=== PATIENT | female | born 1955 | race Caucasian/White ===

== ENCOUNTER 2016-07-28 03:26 | Inpatient (IN) | payer BC ==
[~2016-07-28] VITALS: Ht 152.4 cm; Wt 65.0 kg
[~2016-07-28 03:26] MED LIST: ATEN-51 PO; BECL8.7A5 IH; CALC-143 PO; CYCL-319 PO; DULO60CA59 PO; GABA300C16 PO; GLIP5TAB13 PO; HYDR-2059 PO; INDO75CA PO; INSU100I15 SC; LEVO137T3 PO; OMEP40CA6 PO; PRED5 PO; RANI150C11 PO; TRAM100T27 PO
[2016-07-28] MEDS ORDERED: CYCLOBENZAPRINE 10 MG TAB PO PRN (08:30)
[2016-07-28] MEDS ORDERED: ONDANSETRON 4 MG INJ IV PRN (08:30)
[2016-07-28] MEDS ORDERED: DEXTROSE 50% 50 ML SYRINGE IV PRN ×2 (08:30)
[2016-07-28] MEDS ORDERED: GLUCOSE GEL 15 GRAM TUBE PO PRN ×2 (08:30)
[2016-07-28] MEDS ORDERED: GLUCAGON 1 MG INJ IM PRN (08:30)
[2016-07-28] MEDS ORDERED: GLUCOSE GEL 15 GRAM TUBE BUCCAL PRN (08:30)
[2016-07-28 08:31] VITALS: BP 131/63; RESP 20
[2016-07-28] MEDS: DOCUSATE SODIUM 100 MG CAP PO SCH ×2 (09:23→21:30)
[2016-07-28] MEDS: GABAPENTIN 300 MG CAP PO SCH ×3 (09:23→21:30)
[2016-07-28] MEDS: DULOXETINE 30 MG CAP DR PO SCH (09:24)
[2016-07-28] MEDS: FAMOTIDINE 20 MG INJ IV SCH ×2 (09:26→21:30)
[2016-07-28] MEDS: ENOXAPARIN 40 MG/0.4 ML SYG SC SCH (09:26)
[2016-07-28] MEDS: ATENOLOL 25 MG TAB PO SCH (09:27)
[2016-07-28] MEDS: CIPROFLOXACIN 400MG/D5W 200 ML IVPB SCH ×2 (09:28→21:31)
[2016-07-28] MEDS: morphine 2 MG INJ IV PRN (09:31)
[2016-07-28] MEDS: SOD CHLORIDE 0.9% 1,000 ML IV SCH ×2 (09:46→21:00)
[2016-07-28 09:58] VITALS: Ht 152.4 cm; Wt 65.0 kg
[2016-07-28 10:30] LABS: BASOPHIL # 0.1 10^3/ul (0.0-0.1); BASOPHILS % 0.8 % (0.0-2.0); EOSINOPHILS # 0.1 10^3/ul (0.0-0.5); HEMATOCRIT 30.5 % (37.0-47.0); HEMOGLOBIN 9.8 g/dl (12.0-16.0); LYMPHOCYTES # 2.2 10^3/ul (0.8-2.9); LYMPHOCYTES % 30.5 % (15.0-51.0); MEAN CORPUSCULAR HEMOGLOBIN 26.7 pg (29.0-33.0); MEAN CORPUSCULAR VOLUME 83.4 fl (82.0-101.0); MEAN PLATELET VOLUME 6.6 fl (7.4-10.4); MONOCYTE # 0.7 10^3/ul (0.3-0.9); MONOCYTES % 10.3 % (0.0-11.0); NEUTROPHIL # 4.1 10^3/ul (1.6-7.5); NEUTROPHILS % 57.4 % (39.0-77.0); PLATELET COUNT 425 10^3/UL (140-440); RED BLOOD COUNT 3.66 10^6/ul (4.20-5.40); UNCORRECTED WBC 7.1 10^3/ul (4.8-10.8); WHITE BLOOD COUNT 7.1 10^3/ul (4.8-10.8)
[2016-07-28 10:33] LABS: CONDITION 1; LH ANALYZER COMMENTS 1
[2016-07-28 10:42] LABS: POTASSIUM 3.5 mmol/L (3.5-5.1)
[2016-07-28 10:44] LABS: CREATININE 0.43 mg/dl (0.44-1.00)
[2016-07-28 10:45] LABS: CALCIUM 9.4 mg/dl (8.4-10.2)
[2016-07-28 10:48] LABS: ALBUMIN 3.3 g/dl (3.3-4.9)
[2016-07-28 10:49] LABS: TOTAL PROTEIN 6.4 g/dl (6.1-8.1)
[2016-07-28 10:51] LABS: BILIRUBIN,INDIRECT 0.2 mg/dl (0-1.1); BILIRUBIN,TOTAL 0.2 mg/dl (0.2-1.3); MAGNESIUM 1.6 mg/dl (1.7-2.5)
[2016-07-28] MEDS: HYDROCODONE/APAP (10/325) TAB PO PRN ×3 (11:22→21:30)
[2016-07-28] MEDS: LEVOTHYROXINE 150 MCG TAB PO SCH (11:27)
[2016-07-28] MEDS: metroNIDAZOLE 500 MG/NS (PMX) 250 MG in EVAC CONTAINER 1 BOTTLE IVPB SCH ×3 (11:28→23:43)
[2016-07-28] MEDS: INSULIN ASPART [NOVOLOG] 3 ML PEN SC SCH ×3 (12:00→21:00)
[2016-07-28 12:09] LABS: THYROID STIMULATING HORMONE 12.8 MIU/L (0.465-4.680)
[2016-07-28 13:24] LABS: ADD UMIC YES; URINE BILIRUBIN (Dip) NEGATIVE (NEGATIVE); URINE BLOOD (Dip) 2+ (NEGATIVE); URINE COLOR LT. YELLOW (YELLOW); URINE GLUCOSE (Dip) NEGATIVE (NEGATIVE); URINE KETONES (Dip) NEGATIVE (NEGATIVE); URINE LEUKOCYTE ESTERASE (Dip) 2+ (NEGATIVE); URINE NITRITE (Dip) NEGATIVE (NEGATIVE); URINE TOTAL PROTEIN (Dip) NEGATIVE (NEGATIVE); URINE UROBILINOGEN (Dip) 0.2 E.U./dL (0.1-1.0)
[2016-07-28 13:33] LABS: BACTERIA,URINE FEW; URINE RBCS 0-2 /HPF (0)
[2016-07-28] MEDS: CALCIUM/VITAMIN D (500/200) TAB PO SCH ×2 (13:48→21:30)
[2016-07-28] MEDS: MOMETASONE 0.24 GM INHALER INH SCH ×2 (13:49→21:30)
--- NOTE | 2016-07-28 15:57 | HP ---
DATE OF ADMISSION: 07/28/2016 CONSULTANTS: None. CHIEF COMPLAINT: Abdominal pain and diarrhea. HISTORY OF PRESENT ILLNESS: This is a 61-year-old female with a past medical history of diabetes me llitus, hypertension, depression, anxiety, open heart surgery several years ago, cardiac valve disea se and lumbosacral radiculopathy, who has been complaining of having abdominal pain x1 day, with low er GI bleed, and was seen and evaluated at [facility] with CAT scan done which s hows sigmoid diverticulitis, fluid collection adjacent to the colon, may represent a small abscess, status post cholecystectomy. The patient's WBC was found to be normal. Hemoglobin 10.4, hematocrit 32.6, WBC 6.3. She was treated with IV antibiotics in the course of the emergency room and was tra nsferred to [facility] secondary to insurance purposes. At this time the patient continues to complain of having lower abdominal discomfort. She denies any nausea or having any carter rrhea at this time. PAST MEDICAL AND SURGICAL HISTORY: As above, per HPI. MEDICATIONS: 1. [place]. 2. Atenolol. 3. Qvar. 4. Calciferol. 5. Cyclobenzaprine. 6. Fluoxetine. 7. Gabapentin. 8. Glipizide. 9. Betamethasone. 10. Lantus. 11. Levothyroxine. 12. Omeprazole. 13. Prednisone. 14. Ranitidine. 15. Tramadol. ALLERGIES: SULFA. SOCIAL HISTORY: She lives at home with her family. Negative x3 for smoking, alcohol, or illicit dr ugbrittanie. REVIEW OF SYSTEMS: As above, per HPI. Negative for fevers, chills, weight gain, weight loss, anore lincoln. No chest pains, palpitations, edema or orthopnea. No changes in visual acuity, diplopia or ph otophobia. Positive for abdominal pain and nausea. No vomiting. Positive for a change in the colo r of stool. No dysuria, hematuria, urgency or incontinence. No heat or cold intolerance. PHYSICAL EXAMINATION: VITAL SIGNS: Temperature 98.6, pulse 65, respirations 20, blood pressure 131/63, oxygen saturation 98% on room air. GENERAL APPEARANCE: The patient is lying in bed comfortably, without any acute distress. She is aw santana, alert, oriented; is able to answer my questions properly. EYES AND ENT: Conjunctivae and lids are normal. Pupils are normal. Hearing is grossly normal. Li ps, teeth and gums are normal. Oral mucosa is dry. NECK: Supple. Trachea is midline. No lymphadenopathy. LUNGS: Respiratory effort is normal. Clear to auscultation bilaterally. CARDIOVASCULAR: Normal S1, S2. Regular rhythm and rate. No murmur, no bruits, no edema. Peripher al pulses and radial pulses palpable. Cap refill is normal. CHEST: Normal expansion of thorax during inspiration. GASTROINTESTINAL: Abdomen is soft, nontender, nondistended. Bowel sounds are present. No guarding , no rebound. GENITOURINARY: Deferred. MUSCULOSKELETAL: Upper and lower extremities are within normal limits. Full range of motion. Stre ngth is 5/5 for both upper and lower extremities. NEUROLOGIC: Cranial nerves II through XII are grossly intact. PSYCHIATRIC: Normal judgment and insight. She is awake, alert, oriented. LABORATORY WORK AND IMAGING: CT abdomen and pelvis as above, per HPI. Sodium 137, potassium 3.9, c hloride 97, bicarbonate 25, BUN 15, creatinine 0.51, glucose 406, albumin 4.0. WBC is within normal limits at 6.3. Hemoglobin 10.4, hematocrit 32.6, platelets 439. ASSESSMENT AND PLAN: 1. Diverticulitis. The patient has been started on ciprofloxacin and Flagyl. Will obtain a gastro enterologist if this symptom does not improve. 2. Possible fluid collection just at the colon, may represent a small abscess. Will obtain a [facility] consultation and will follow his recommendations. Continue IV antibiotic. 3. Essential hypertension. Continue atenolol. 4. Major depression. Continue Cymbalta. 5. Hypothyroidism. Continue levothyroxine. 6. Diabetes mellitus. Will place the patient on insulin sliding scale and continue Lantus. 7. History of asthma. Continue Asmanex. 8. For deep venous thrombosis prophylaxis, on Lovenox. 9. For gastrointestinal prophylaxis, on Pepcid. Will continue to monitor the patient closely. Further recommendations, management and treatment as per clinical course. Total amount of time spent for evaluation of the patient for admission workup was 45 minutes. Dictated By: ABDULKADIR JONES/ELINA Conf#: [id number] [facility]#: [id number]
--- NOTE | 2016-07-28 20:40 | CONS ---
Date/Time of Note Date/Time of Note DATE: 07/28/16 TIME: 20:35 Assessment/Plan Assessment/Plan Chief Complaint/Hosp Course 61-year-old female with acute sigmoid diverticulitis * CT scan was personally reviewed. 2 cm fluid collection adjacent to sigmoid colon is likely too small for IR drainage. This should resolve with long-term IV antibiotics. * Given patient's hemodynamic stability, lack of significant leukocytosis, fever , or peritoneal signs I would continue with nonoperative conservative management. * Continue nothing by mouth/IV fluid hydration/broad-spectrum intravenous antibiotics/pain control The above was discussed with the patient and the primary care team. Further recommendations will be made based on patient's clinical course Problems: Consultation Date/Type/Reason Admit Date/Time Jul 28, 2016 at 06:46 Date of Consultation: Jul 28, 2016 Type of Consultation: GENERAL SURGERY Reason for Consultation Acute diverticulitis Hx of Present Illness This is a 61-year-old female with a past medical history of diabetes mellitus, hypertension, depression, anxiety, open heart surgery several years ago, cardiac valve disease and lumbosacral radiculopathy, who was initially seen at [facility] with complaints of left lower quadrant abdominal pain x1 day. She denies any nausea/vomiting. She denies any fever/chills. She reports her last bowel movement was yesterday. At [place] a CT scan of the abdomen and pelvis was done which showed thickened sigmoid colon with inflammatory changes and a small 2 cm fluid collection adjacent to the sigmoid colon. She was transferred to [facility] for insurance purposes. She reports a similar episode of pain back in November 2015. Currently she is comfortable , but still complaining of some left lower quadrant abdominal pain. A 14 point review systems was conducted and was negative except for that which is mentioned in history of present illness Past Medical History As in history of present illness Social History Smoking Status: Never smoker Exam/Review of Systems Vital Signs Vitals Vital Signs Date Time Temp Pulse Resp B/P Pulse Ox O2 Delivery O2 Flow Rate FiO2 07/28/16 08:31 96.8 65 20 131/63 98 Exam GENERAL: Awake, alert, oriented 3. No acute distress. SKIN: No jaundice. HEENT: PERRLA, EOMI, No Scleral Icterus NECK: Supple without JVD CARDIOVASCULAR: S1S2, regular rate and rhythm. No murmurs appreciated. RESPIRATORY: Clear to auscultation bilaterally. ABDOMEN: Obese, Soft, bowel sounds present, nondistended, there is mild left lower quadrant tenderness to palpation without any rebound or guarding. EXTREMITIES: Free range of motion 4. No cyanosis, edema, or clubbing. NEUROLOGIC: Cranial nerves II-XII are intact. Sensation is intact grossly. Results Result Diagram: 07/28/16 0943 07/28/16 0943 Results 24 hrs Laboratory Tests Test 07/28/16 09:43 07/28/16 11:37 07/28/16 12:10 07/28/16 18:31 Alanine Aminotransferase (ALT/SGPT) 27 Albumin 3.3 Alkaline Phosphatase 116 Anion Gap 13 Aspartate Amino Transf (AST/SGOT) 14 L Basophils # 0.1 Basophils % 0.8 Blood Morphology Comment Blood Urea Nitrogen 11 Calcium Level 9.4 Carbon Dioxide Level 34 H Chloride Level 100 Creatinine 0.43 L Direct Bilirubin 0.00 Eosinophils # 0.1 Eosinophils % 1.0 Glucose Level 83 Hematocrit 30.5 L Hemoglobin 9.8 L Hemoglobin A1c 10.0 H Indirect Bilirubin 0.2 Lymphocytes # 2.2 Lymphocytes % 30.5 Magnesium Level 1.6 L Mean Corpuscular Hemoglobin 26.7 L Mean Corpuscular Hemoglobin Concent 32.0 Mean Corpuscular Volume 83.4 Mean Platelet Volume 6.6 L Monocytes # 0.7 Monocytes % 10.3 Neutrophils # 4.1 Neutrophils % 57.4 Nucleated Red Blood Cells # 0.0 Nucleated Red Blood Cells % 0.0 Platelet Count 425 Potassium Level 3.5 Red Blood Count 3.66 L Red Cell Distribution Width 19.0 H Sodium Level 143 Thyroid Stimulating Hormone (TSH) 12.800 H Total Bilirubin 0.2 Total Protein 6.4 White Blood Count 7.1 Bedside Glucose 94 89 Urine Bacteria FEW Urine Bilirubin NEGATIVE Urine Clarity CLEAR Urine Color LT. YELLOW Urine Epithelial Cells FEW Urine Glucose NEGATIVE Urine Hemoglobin 2+ H Urine Ketones NEGATIVE Urine Leukocyte Esterase 2+ H Urine Microscopic RBC 0-2 Urine Microscopic WBC 25-50 Urine Nitrite NEGATIVE Urine Specific [place] 1.010 Urine Total Protein NEGATIVE Urine Urobilinogen 0.2 E.U./dL Urine pH 7.0 Medications Medications Current Medications Ciprofloxacin/ Dextrose 200 ml @ 200 mls/hr Q12 IVPB Last administered on 07/28t 09:28; Admin Dose 200 MLS/HR; Start 07/28/16 at 09:00 Metronidazole/N/A (Flagyl 500 Mg (Pmx)/Evac Container) 50 ml @ 50 mls/hr Q8 IVPB Last administered on 07/28/16 13:49; Admin Dose 50 MLS/HR; Start at 09:30 Docusate Sodium (Colace) 100 mg BID PO Last administered on 07/28/16 09:23; Admin Dose 100 MG; Start 07/28/16 at 09:00 Ondansetron HCl (Zofran Inj) 4 mg Q6H PRN IV NAUSEA AND/OR VOMITING; Start at 08:30 Morphine Sulfate 2 mg 2 mg Q4H PRN IV pain Last administered on 07/28/16 09:31 ; Admin Dose 2 MG; Start 07/28/16 at 08:30 Sodium Chloride (NS) 1,000 ml @ 80 mls/hr [id number] IV Last administered on 07/28 09:46; Admin Dose 80 MLS/HR; Start 07/28/16 at 08:30 Famotidine (Pepcid Iv) 20 mg BID IV Last administered on 07/28/16 09:26; Admin Dose 20 MG; Start 07/28/16 at 09:00 Enoxaparin Sodium (Lovenox) 40 mg DAILY SC Last administered on 07/28/16 09:26 ; Admin Dose 40 MG; Start 07/28/16 at 09:00 Diagnostic Test (Pha) (Accucheck) 1 ea 02 XX ; Start 07/29/16 at 02:00 Atenolol (Tenormin) 25 mg DAILY PO Last administered on 07/28/16 09:27; Admin Dose 25 MG; Start 07/28/16 at 09:00 Cyclobenzaprine HCl (Flexeril) 10 mg DAILY PRN PO muscle spasms; Start at 08:30 Duloxetine HCl (Cymbalta) 60 mg DAILY PO Last administered on 07/28/16 09:24; Admin Dose 60 MG; Start 07/28/16 at 09:00 Gabapentin (Neurontin) 300 mg TID PO Last administered on 07/28/16 13:48; Admin Dose 300 MG; Start 07/28/16 at 09:00 Acetaminophen/ Hydrocodone Bitart ([place] (10/325)) 1 tab Q4H PRN PO PAIN Last administered on 07/28/16 19:01; Admin Dose 1 TAB; Start 07/28/16 at 08:30 Levothyroxine Sodium (Synthroid) 150 mcg DAILY@06 PO Last administered on 11:27; Admin Dose 150 MCG; Start 07/28/16 at 09:00 Mometasone Furoate (Asmanex) 1 puff BID INH Last administered on 07/28/16 13: 49; Admin Dose 1 PUFF; Start 07/28/16 at 10:00 Calcium/Vitamin D ([place]/ Vit-D (500/200)) 1 tab BID PO Last administered on 07/28/16 13:48; Admin Dose 1 TAB; Start 07/28/16 at 10:00 Miscellaneous Information 1 ea NOTE XX ; Start 07/28/16 at 08:30 Glucose (Glutose) 15 gm Q15M PRN PO DECREASED GLUCOSE; Start 07/28/16 at 08:30 Glucose (Glutose) 22.5 gm Q15M PRN PO DECREASED GLUCOSE; Start 07/28/16 at 08: 30 Dextrose (D50w Syringe) 25 ml Q15M PRN IV DECREASED GLUCOSE; Start 07/28/16 at 08:30 Dextrose (D50w Syringe) 50 ml Q15M PRN IV DECREASED GLUCOSE; Start 07/28/16 at 08:30 Glucagon (Glucagen) 1 mg Q15M PRN IM DECREASED GLUCOSE; Start 07/28/16 at 08:30 Glucose (Glutose) 15 gm Q15M PRN BUCCAL DECREASED GLUCOSE; Start 07/28/16 at 08 :30 HERI BOOKER MD Jul 28, 2016 20:40
[2016-07-29 01:34] VITALS: BP 101/52; RESP 19
[2016-07-29] MEDS: ACCUCHECK XX SCH ×2 (02:00→22:11)
[2016-07-29] MEDS: SOD CHLORIDE 0.9% 1,000 ML IV SCH ×2 (03:49→22:00)
[2016-07-29] MEDS: metroNIDAZOLE 500 MG/NS (PMX) 250 MG in EVAC CONTAINER 1 BOTTLE IVPB SCH ×3 (05:37→22:00)
[2016-07-29] MEDS: LEVOTHYROXINE 150 MCG TAB PO SCH (05:37)
[2016-07-29 05:53] LABS: BASOPHIL # 0.1 10^3/ul (0.0-0.1); BASOPHILS % 0.8 % (0.0-2.0); EOSINOPHILS # 0.1 10^3/ul (0.0-0.5); EOSINOPHILS % 1.2 % (0.0-7.0); HEMATOCRIT 29.5 % (37.0-47.0); HEMOGLOBIN 9.6 g/dl (12.0-16.0); LYMPHOCYTES # 2.6 10^3/ul (0.8-2.9); LYMPHOCYTES % 35.6 % (15.0-51.0); MEAN CORPUSCULAR HEMOGLOBIN 27.3 pg (29.0-33.0); MEAN CORPUSCULAR HGB CONC 32.6 g/dl (32.0-37.0); MEAN CORPUSCULAR VOLUME 83.8 fl (82.0-101.0); MEAN PLATELET VOLUME 6.8 fl (7.4-10.4); MONOCYTE # 0.8 10^3/ul (0.3-0.9); MONOCYTES % 10.7 % (0.0-11.0); NEUTROPHIL # 3.7 10^3/ul (1.6-7.5); NEUTROPHILS % 51.7 % (39.0-77.0); PLATELET COUNT 397 10^3/UL (140-440); RED BLOOD COUNT 3.52 10^6/ul (4.20-5.40); RED CELL DISTRIBUTION WIDTH 19.3 % (11.5-14.5); UNCORRECTED WBC 7.2 10^3/ul (4.8-10.8); WHITE BLOOD COUNT 7.2 10^3/ul (4.8-10.8)
[2016-07-29 06:07] LABS: POTASSIUM 3.4 mmol/L (3.5-5.1)
[2016-07-29 06:10] LABS: CALCIUM 8.6 mg/dl (8.4-10.2); CREATININE 0.5 mg/dl (0.44-1.00)
[2016-07-29 06:12] LABS: CONDITION 1; LH ANALYZER COMMENTS 1
[2016-07-29 08:00] VITALS: BP 120/55; RESP 21
[2016-07-29] MEDS: INSULIN ASPART [NOVOLOG] 3 ML PEN SC SCH ×4 (08:00→20:07)
[2016-07-29] MEDS: CIPROFLOXACIN 400MG/D5W 200 ML IVPB SCH ×2 (08:37→20:06)
[2016-07-29] MEDS: FAMOTIDINE 20 MG INJ IV SCH ×2 (08:37→20:06)
[2016-07-29] MEDS: MOMETASONE 0.24 GM INHALER INH SCH ×2 (09:00→20:06)
[2016-07-29] MEDS: DOCUSATE SODIUM 100 MG CAP PO SCH ×3 (09:19→20:14)
[2016-07-29] MEDS: DULOXETINE 30 MG CAP DR PO SCH (09:19)
[2016-07-29] MEDS: CALCIUM/VITAMIN D (500/200) TAB PO SCH ×2 (09:20→20:07)
[2016-07-29] MEDS: ATENOLOL 25 MG TAB PO SCH (09:20)
[2016-07-29] MEDS: ENOXAPARIN 40 MG/0.4 ML SYG SC SCH (09:22)
[2016-07-29] MEDS: GABAPENTIN 300 MG CAP PO SCH ×3 (09:24→20:07)
--- NOTE | 2016-07-29 09:49 | PN ---
Date/Time of Note Date/Time of Note DATE: 07/29/16 TIME: 09:47 Assessment/Plan Lines/Catheters IV C[facility]ter Type (from [facility]): Peripheral IV Assessment/Plan Assessment/Plan 61-year-old female with acute sigmoid diverticulitis * CT scan was personally reviewed. 2 cm fluid collection adjacent to sigmoid colon is likely too small for IR drainage. This should resolve with long-term IV antibiotics. * White blood cell count normal * Continue broad-spectrum intravenous antibiotics * Pain control * Advance to clear liquids * Out of bed/physical therapy The above was discussed with the patient and the primary care team. Further recommendations will be made based on patient's clinical course Subjective 24 Hr Interval Summary Still complaining of some left lower quadrant abdominal pain. No bowel movement. Afebrile. Exam/Review of Systems Vital Signs Vitals Vital Signs Date Time Temp Pulse Resp B/P Pulse Ox O2 Delivery O2 Flow Rate FiO2 07/29/16 08:00 98.3 57 21 120/55 93 Intake and Output 07/28/16 07/28/16 07/29/16 15:00 23:00 07:00 Intake Total 400 ml 1100 ml Output Total 850 ml Balance -450 ml 1100 ml Exam Free Text/Dictation GENERAL: Awake, alert, oriented 3. No acute distress. CARDIOVASCULAR: S1S2, regular rate and rhythm. No murmurs appreciated. RESPIRATORY: Clear to auscultation bilaterally. ABDOMEN: Obese, Soft, bowel sounds present, nondistended, there is mild left lower quadrant tenderness to palpation without any rebound or guarding. EXTREMITIES: Free range of motion 4. No cyanosis, edema, or clubbing. Results Result Diagram: 07/29/16 0420 07/29/16 0420 HERI BOOKER MD Jul 29, 2016 09:49
[2016-07-29] MEDS ORDERED: HYDROCODONE/APAP (5/325) TAB PO PRN (10:00)
[2016-07-29] MEDS: POTASSIUM CHLORIDE (SR) 20 MEQ TAB PO SCH ×2 (10:16→20:07)
[2016-07-29] MEDS: morphine 2 MG INJ IV PRN ×2 (10:16→20:08)
[2016-07-29] MEDS: HYDROCODONE/APAP (10/325) TAB PO PRN ×2 (13:55→22:09)
--- NOTE | 2016-07-29 16:07 | PN ---
Date/Time of Note Date/Time of Note DATE: 07/29/16 TIME: 16:02 Assessment/Plan VTE Prophylaxis VTE Prophylaxis Intervention: LMWH Lines/Catheters IV Catheter Type (from Nrs): Peripheral IV Assessment/Plan Assessment/Plan 1. Acute sigmoid diverticulitis with microperforation. continue iv antibiotics with cipro/flagyl, bowel resting, ivf 2. Urinary tract infection, on cipro 3. Essential hypertension. controlled, continue atenolol. 4. Major depression. astable, continue Cymbalta. 5. Hypothyroidism. Continue levothyroxine. 6. Diabetes mellitus. on insulin sliding scale and continue Lantus. 7. History of asthma. Continue Asmanex. 8. For deep venous thrombosis prophylaxis, on Lovenox. 9. For gastrointestinal prophylaxis, on Pepcid. Exam/Review of Systems Vital Signs Vitals Vital Signs Date Time Temp Pulse Resp B/P Pulse Ox O2 Delivery O2 Flow Rate FiO2 07/29/16 08:00 98.3 57 21 120/55 93 Intake and Output 07/28/16 07/28/16 07/29/16 15:00 23:00 07:00 Intake Total 400 ml 1100 ml Output Total 850 ml Balance -450 ml 1100 ml Results Result Diagram: 07/29/16 0420 07/29/16 0420 Results 24 hrs Laboratory Tests Test 07/28/16 18:31 07/28/16 21:24 07/29/16 04:20 07/29/16 11:49 Bedside Glucose 89 89 85 Anion Gap 12 Basophils # 0.1 Basophils % 0.8 Blood Morphology Comment Blood Urea Nitrogen 12 Calcium Level 8.6 Carbon Dioxide Level 31 Chloride Level 102 Creatinine 0.50 Eosinophils # 0.1 Eosinophils % 1.2 Glucose Level 70 Hematocrit 29.5 L Hemoglobin 9.6 L Lymphocytes # 2.6 Lymphocytes % 35.6 Mean Corpuscular Hemoglobin 27.3 L Mean Corpuscular Hemoglobin Concent 32.6 Mean Corpuscular Volume 83.8 Mean Platelet Volume 6.8 L Monocytes # 0.8 Monocytes % 10.7 Neutrophils # 3.7 Neutrophils % 51.7 Nucleated Red Blood Cells # 0.0 Nucleated Red Blood Cells % 0.0 Platelet Count 397 Potassium Level 3.4 L Red Blood Count 3.52 L Red Cell Distribution Width 19.3 H Sodium Level 142 White Blood Count 7.2 Medications Medications Current Medications Ciprofloxacin/ Dextrose 200 ml @ 200 mls/hr Q12 IVPB Last administered on 07/29 08:37; Admin Dose 200 MLS/HR; Start 07/28/16 at 09:00 Metronidazole/N/A (Flagyl 500 Mg (Pmx)/Evac Container) 50 ml @ 50 mls/hr Q8 IVPB Last administered on 07/29/16 15:44; Admin Dose 50 MLS/HR; Start at 09:30 Ondansetron HCl (Zofran Inj) 4 mg Q6H PRN IV NAUSEA AND/OR VOMITING; Start at 08:30 Morphine Sulfate 2 mg 2 mg Q4H PRN IV pain Last administered on 07/29/16 10:16 ; Admin Dose 2 MG; Start 07/28/16 at 08:30 Sodium Chloride (NS) 1,000 ml @ 80 mls/hr [id number] IV Last administered on 07/29 03:49; Admin Dose 80 MLS/HR; Start 07/28/16 at 08:30 Famotidine (Pepcid Iv) 20 mg BID IV Last administered on 07/29/16 08:37; Admin Dose 20 MG; Start 07/28/16 at 09:00 Enoxaparin Sodium (Lovenox) 40 mg DAILY SC Last administered on 07/29/16 09:22 ; Admin Dose 40 MG; Start 07/28/16 at 09:00 Diagnostic Test (Pha) (Accucheck) 1 ea 02 XX ; Start 07/29/16 at 02:00 Atenolol (Tenormin) 25 mg DAILY PO Last administered on 07/29/16 09:20; Admin Dose 25 MG; Start 07/28/16 at 09:00 Cyclobenzaprine HCl (Flexeril) 10 mg DAILY PRN PO muscle spasms; Start at 08:30 Duloxetine HCl (Cymbalta) 60 mg DAILY PO Last administered on 07/29/16 09:19; Admin Dose 60 MG; Start 07/28/16 at 09:00 Gabapentin (Neurontin) 300 mg TID PO Last administered on 07/29/16 13:48; Admin Dose 300 MG; Start 07/28/16 at 09:00 Acetaminophen/ Hydrocodone Bitart ([place] (10/325)) 1 tab Q4H PRN PO PAIN Last administered on 07/29/16 13:55; Admin Dose 1 TAB; Start 07/28/16 at 08:30 Levothyroxine Sodium (Synthroid) 150 mcg DAILY@06 PO Last administered on 05:37; Admin Dose 150 MCG; Start 07/28/16 at 09:00 Mometasone Furoate (Asmanex) 1 puff BID INH Last administered on 07/28/16 21: 30; Admin Dose 1 PUFF; Start 07/28/16 at 10:00 Calcium/Vitamin D ([place]/ Vit-D (500/200)) 1 tab BID PO Last administered on 07/29/16 09:20; Admin Dose 1 TAB; Start 07/28/16 at 10:00 Miscellaneous Information 1 ea NOTE XX ; Start 07/28/16 at 08:30 Glucose (Glutose) 15 gm Q15M PRN PO DECREASED GLUCOSE; Start 07/28/16 at 08:30 Glucose (Glutose) 22.5 gm Q15M PRN PO DECREASED GLUCOSE; Start 07/28/16 at 08: 30 Dextrose (D50w Syringe) 25 ml Q15M PRN IV DECREASED GLUCOSE; Start 07/28/16 at 08:30 Dextrose (D50w Syringe) 50 ml Q15M PRN IV DECREASED GLUCOSE; Start 07/28/16 at 08:30 Glucagon (Glucagen) 1 mg Q15M PRN IM DECREASED GLUCOSE; Start 07/28/16 at 08:30 Glucose (Glutose) 15 gm Q15M PRN BUCCAL DECREASED GLUCOSE; Start 07/28/16 at 08 :30 Docusate Sodium (Colace) 100 mg TID PO Last administered on 07/29/16 13:48; Admin Dose 100 MG; Start 07/29/16 at 13:00 Acetaminophen/ Hydrocodone Bitart ([place] (5/325)) 1 tab Q4H PRN PO MILD PAIN LEVEL 1-3; Start 07/29/16 at 10:00 Acetaminophen/ Hydrocodone Bitart ([place] (5/325)) 2 tab Q4H PRN PO MODERATE PAIN LEVEL 4-6; Start 07/29/16 at 10:00 Potassium Chloride (Klor-Con 20) 20 meq BID PO Last administered on 07/29/16t 10:16; Admin Dose 20 MEQ; Start 07/29/16 at 10:00; Stop 07/29/16 at 21:01 FEDERICO LEAL MD Jul 29, 2016 16:07
[2016-07-29 20:01] VITALS: BP 115/58; RESP 20
[2016-07-30] MEDS: HYDROCODONE/APAP (5/325) TAB PO PRN (01:49)
[2016-07-30] MEDS: HYDROCODONE/APAP (10/325) TAB PO PRN ×4 (05:19→20:28)
[2016-07-30] MEDS: metroNIDAZOLE 500 MG/NS (PMX) 250 MG in EVAC CONTAINER 1 BOTTLE IVPB SCH ×3 (05:19→22:35)
[2016-07-30] MEDS: LEVOTHYROXINE 150 MCG TAB PO SCH (05:19)
[2016-07-30 06:52] LABS: POTASSIUM 3.5 mmol/L (3.5-5.1)
[2016-07-30 06:54] LABS: CREATININE 0.47 mg/dl (0.44-1.00)
[2016-07-30 06:55] LABS: CALCIUM 8.5 mg/dl (8.4-10.2)
[2016-07-30 07:10] LABS: BASOPHIL # 0.1 10^3/ul (0.0-0.1); BASOPHILS % 0.8 % (0.0-2.0); EOSINOPHILS # 0.1 10^3/ul (0.0-0.5); EOSINOPHILS % 1.6 % (0.0-7.0); HEMATOCRIT 28.3 % (37.0-47.0); HEMOGLOBIN 9.3 g/dl (12.0-16.0); LYMPHOCYTES # 2.2 10^3/ul (0.8-2.9); LYMPHOCYTES % 33.9 % (15.0-51.0); MEAN CORPUSCULAR HEMOGLOBIN 27.2 pg (29.0-33.0); MEAN CORPUSCULAR VOLUME 82.4 fl (82.0-101.0); MEAN PLATELET VOLUME 7.3 fl (7.4-10.4); MONOCYTE # 0.9 10^3/ul (0.3-0.9); MONOCYTES % 13.5 % (0.0-11.0); NEUTROPHIL # 3.3 10^3/ul (1.6-7.5); NEUTROPHILS % 50.2 % (39.0-77.0); PLATELET COUNT 359 10^3/UL (140-440); RED BLOOD COUNT 3.43 10^6/ul (4.20-5.40); RED CELL DISTRIBUTION WIDTH 19.2 % (11.5-14.5); UNCORRECTED WBC 6.6 10^3/ul (4.8-10.8); WHITE BLOOD COUNT 6.6 10^3/ul (4.8-10.8)
[2016-07-30 07:22] LABS: CONDITION 1; LH ANALYZER COMMENTS 1
[2016-07-30 08:00] VITALS: BP 128/60; RESP 20
[2016-07-30] MEDS: INSULIN ASPART [NOVOLOG] 3 ML PEN SC SCH ×4 (08:00→20:29)
[2016-07-30] MEDS: DULOXETINE 30 MG CAP DR PO SCH (08:35)
[2016-07-30] MEDS: DOCUSATE SODIUM 100 MG CAP PO SCH ×3 (08:35→20:27)
[2016-07-30] MEDS: FAMOTIDINE 20 MG INJ IV SCH (08:35)
[2016-07-30] MEDS: GABAPENTIN 300 MG CAP PO SCH ×3 (08:35→20:27)
[2016-07-30] MEDS: ATENOLOL 25 MG TAB PO SCH (08:36)
[2016-07-30] MEDS: CIPROFLOXACIN 400MG/D5W 200 ML IVPB SCH ×2 (08:37→20:26)
[2016-07-30] MEDS: MOMETASONE 0.24 GM INHALER INH SCH ×2 (08:37→20:26)
[2016-07-30] MEDS: ENOXAPARIN 40 MG/0.4 ML SYG SC SCH (08:37)
[2016-07-30] MEDS: CALCIUM/VITAMIN D (500/200) TAB PO SCH ×2 (09:24→20:27)
--- NOTE | 2016-07-30 09:33 | PN ---
Date/Time of Note Date/Time of Note DATE: 07/30/16 TIME: 09:29 Assessment/Plan VTE Prophylaxis VTE Prophylaxis Intervention: LMWH Lines/Catheters [facility] Peripheral IV Urinary Cath still in place: No Assessment/Plan Chief Complaint/Hosp Course Assessment/Plan 1. Acute sigmoid diverticulitis with microperforation. continue iv antibiotics with cipro/flagyl, now on clear liquid diet, I will DC IV fluids small fluid collection noted on CT abdomen not for drainage at present. 2. Urinary tract infection, on cipro 3. Essential hypertension. controlled, continue atenolol. 4. Major depression. astable, continue Cymbalta. 5. Hypothyroidism. Continue levothyroxine. 6. Diabetes mellitus. on insulin sliding scale and continue Lantus. 7. History of asthma. Continue Asmanex. 8. For deep venous thrombosis prophylaxis, on Lovenox. 9. For gastrointestinal prophylaxis, on Pepcid. Encourage out of bed encourage p.o. intake If pain continues to improve anticipate discharge next 1-2 days with long-term antibiotics per general surgery likely repeat CT abdomen pelvis in several weeks time. Problems: Subjective 24 Hr Interval Summary Free Text/Dictation Patient still complaining of left lower quadrant pain Tolerating clear liquid diet States she had a bowel movement in the last 24 hours continues intravenous antibiotics Exam/Review of Systems Vital Signs Vitals Vital Signs Date Time Temp Pulse Resp B/P Pulse Ox O2 Delivery O2 Flow Rate FiO2 07/30/16 08:00 98.3 56 20 128/60 94 Intake and Output 07/29/16 07/29/16 07/30/16 15:00 23:00 07:00 Intake Total 2630 ml 1330 ml Balance 2630 ml 1330 ml Exam GENERAL: Moderately obese lady awake alert oriented comfortable at rest no acute distress VITAL SIGNS: per chart NECK: Supple. No JVD or lymphadenopathy. CARDIAC EXAM: S1, S2. No added sounds or murmurs. CHEST: clear bilaterally, No added sounds, rales or wheezes ABDOMEN: Soft, mild tenderness left lower quadrant bowel sounds present EXTREMITIES: No cyanosis, clubbing or edema. NEUROLOGIC: Generalized weakness. No focal deficits. Results Result Diagram: 07/30/16 0522 07/30/16 0522 Results 24 hrs Laboratory Tests Test 07/29/16 11:49 07/29/16 17:01 07/29/16 20:04 07/30/16 05:22 Bedside Glucose 85 88 168 Anion Gap 11 Basophils # 0.1 Basophils % 0.8 Blood Morphology Comment Blood Urea Nitrogen 6 L Calcium Level 8.5 Carbon Dioxide Level 29 Chloride Level 108 Creatinine 0.47 Eosinophils # 0.1 Eosinophils % 1.6 Glucose Level 83 Hematocrit 28.3 L Hemoglobin 9.3 L Lymphocytes # 2.2 Lymphocytes % 33.9 Mean Corpuscular Hemoglobin 27.2 L Mean Corpuscular Hemoglobin Concent 33.0 Mean Corpuscular Volume 82.4 Mean Platelet Volume 7.3 L Monocytes # 0.9 Monocytes % 13.5 H Neutrophils # 3.3 Neutrophils % 50.2 Nucleated Red Blood Cells # 0.0 Nucleated Red Blood Cells % 0.0 Platelet Count 359 Potassium Level 3.5 Red Blood Count 3.43 L Red Cell Distribution Width 19.2 H Sodium Level 144 White Blood Count 6.6 Medications Medications Current Medications Ciprofloxacin/ Dextrose 200 ml @ 200 mls/hr Q12 IVPB Last administered on 07/30 08:37; Admin Dose 200 MLS/HR; Start 07/28/16 at 09:00 Metronidazole/N/A (Flagyl 500 Mg (Pmx)/Evac Container) 50 ml @ 50 mls/hr Q8 IVPB Last administered on 07/30/16 05:19; Admin Dose 50 MLS/HR; Start at 09:30 Ondansetron HCl (Zofran Inj) 4 mg Q6H PRN IV NAUSEA AND/OR VOMITING; Start at 08:30 Morphine Sulfate 2 mg 2 mg Q4H PRN IV pain Last administered on 07/29/16 20:08 ; Admin Dose 2 MG; Start 07/28/16 at 08:30 Sodium Chloride (NS) 1,000 ml @ 80 mls/hr [id number] IV Last administered on 07/29 22:00; Admin Dose 80 MLS/HR; Start 07/28/16 at 08:30 Famotidine (Pepcid Iv) 20 mg BID IV Last administered on 07/30/16 08:35; Admin Dose 20 MG; Start 07/28/16 at 09:00 Enoxaparin Sodium (Lovenox) 40 mg DAILY SC Last administered on 07/30/16 08:37 ; Admin Dose 40 MG; Start 07/28/16 at 09:00 Diagnostic Test (Pha) (Accucheck) 1 ea 02 XX ; Start 07/29/16 at 02:00 Atenolol (Tenormin) 25 mg DAILY PO Last administered on 07/30/16 08:36; Admin Dose 25 MG; Start 07/28/16 at 09:00 Cyclobenzaprine HCl (Flexeril) 10 mg DAILY PRN PO muscle spasms; Start at 08:30 Duloxetine HCl (Cymbalta) 60 mg DAILY PO Last administered on 07/30/16 08:35; Admin Dose 60 MG; Start 07/28/16 at 09:00 Gabapentin (Neurontin) 300 mg TID PO Last administered on 07/30/16 08:35; Admin Dose 300 MG; Start 07/28/16 at 09:00 Acetaminophen/ Hydrocodone Bitart ([place] (10/325)) 1 tab Q4H PRN PO PAIN Last administered on 07/30/16 09:24; Admin Dose 1 TAB; Start 07/28/16 at 08:30 Levothyroxine Sodium (Synthroid) 150 mcg DAILY@06 PO Last administered on 05:19; Admin Dose 150 MCG; Start 07/28/16 at 09:00 Mometasone Furoate (Asmanex) 1 puff BID INH Last administered on 07/30/16 08: 37; Admin Dose 1 PUFF; Start 07/28/16 at 10:00 Calcium/Vitamin D (Oyster Shell/ Vit-D (500/200)) 1 tab BID PO Last administered on 07/30/16 09:24; Admin Dose 1 TAB; Start 07/28/16 at 10:00 Miscellaneous Information 1 ea NOTE XX ; Start 07/28/16 at 08:30 Glucose (Glutose) 15 gm Q15M PRN PO DECREASED GLUCOSE; Start 07/28/16 at 08:30 Glucose (Glutose) 22.5 gm Q15M PRN PO DECREASED GLUCOSE; Start 07/28/16 at 08: 30 Dextrose (D50w Syringe) 25 ml Q15M PRN IV DECREASED GLUCOSE; Start 07/28/16 at 08:30 Dextrose (D50w Syringe) 50 ml Q15M PRN IV DECREASED GLUCOSE; Start 07/28/16 at 08:30 Glucagon (Glucagen) 1 mg Q15M PRN IM DECREASED GLUCOSE; Start 07/28/16 at 08:30 Glucose (Glutose) 15 gm Q15M PRN BUCCAL DECREASED GLUCOSE; Start 07/28/16 at 08 :30 Docusate Sodium (Colace) 100 mg TID PO Last administered on 07/30/16 08:35; Admin Dose 100 MG; Start 07/29/16 at 13:00 Acetaminophen/ Hydrocodone Bitart ([place] (5/325)) 1 tab Q4H PRN PO MILD PAIN LEVEL 1-3 Last administered on 07/30/16 01:49; Admin Dose 1 TAB; Start at 10:00 Acetaminophen/ Hydrocodone Bitart ([place] (5/325)) 2 tab Q4H PRN PO MODERATE PAIN LEVEL 4-6; Start 07/29/16 at 10:00 MAYI YANES MD, [facility] Jul 30, 2016 09:33
--- NOTE | 2016-07-30 14:21 | PN ---
Date/Time of Note Date/Time of Note DATE: 07/30/16 TIME: 14:19 Assessment/Plan Lines/Catheters IV Catheter Type (from Nrs): Peripheral IV Bird in Place (from Nrs): No Assessment/Plan Assessment/Plan 61-year-old female with acute sigmoid diverticulitis * CT scan was personally reviewed. 2 cm fluid collection adjacent to sigmoid colon is likely too small for IR drainage. This should resolve with long-term antibiotics. * White blood cell count normal * Continue broad-spectrum intravenous antibiotics * Pain control * Advance to low residual diet * Out of bed/physical therapy * Chronic anemia. Recommend workup as outpatient * Possible discharge home in a.m. if tolerates diet and continues to improve. Will need long-term antibiotics. * Will need GI follow-up in 6 weeks for full colonoscopy. The above was discussed with the patient and the primary care team. Further recommendations will be made based on patient's clinical course Subjective 24 Hr Interval Summary Still complains of left lower quadrant abdominal pain, however, she states it is better. Tolerating clear liquids. Had a bowel movement yesterday. Afebrile. Exam/Review of Systems Vital Signs Vitals Vital Signs Date Time Temp Pulse Resp B/P Pulse Ox O2 Delivery O2 Flow Rate FiO2 07/30/16 08:00 98.3 56 20 128/60 94 Intake and Output 07/29/16 07/29/16 07/30/16 15:00 23:00 07:00 Intake Total 2630 ml 1330 ml Balance 2630 ml 1330 ml Exam Free Text/Dictation GENERAL: Awake, alert, oriented 3. No acute distress. CARDIOVASCULAR: S1S2, regular rate and rhythm. No murmurs appreciated. RESPIRATORY: Clear to auscultation bilaterally. ABDOMEN: Obese, Soft, bowel sounds present, nondistended, there is mild left lower quadrant tenderness to palpation without any rebound or guarding which is improved. EXTREMITIES: Free range of motion 4. No cyanosis, edema, or clubbing. Results Result Diagram: 07/30/16 0522 07/30/16 0522 HERI BOOKER MD Jul 30, 2016 14:21
[2016-07-30 19:38] VITALS: BP 108/50; RESP 20
[2016-07-30] MEDS: FAMOTIDINE 20 MG TAB PO SCH (20:27)
[2016-07-31] MEDS: HYDROCODONE/APAP (10/325) TAB PO PRN (01:51)
[2016-07-31] MEDS: ACCUCHECK XX SCH (01:51)
[2016-07-31] MEDS: metroNIDAZOLE 500 MG/NS (PMX) 250 MG in EVAC CONTAINER 1 BOTTLE IVPB SCH ×3 (05:16→22:17)
[2016-07-31] MEDS: HYDROCODONE/APAP (5/325) TAB PO PRN ×3 (05:17→18:55)
[2016-07-31] MEDS: LEVOTHYROXINE 150 MCG TAB PO SCH (05:17)
[2016-07-31 06:56] LABS: POTASSIUM 3.4 mmol/L (3.5-5.1)
[2016-07-31 06:58] LABS: CREATININE 0.42 mg/dl (0.44-1.00)
[2016-07-31 06:59] LABS: CALCIUM 8.6 mg/dl (8.4-10.2); PHOSPHORUS 3.4 mg/dl (2.5-4.9)
[2016-07-31 07:00] LABS: MAGNESIUM 1.6 mg/dl (1.7-2.5)
[2016-07-31 07:01] LABS: BASOPHILS % 0.6 % (0.0-2.0); EOSINOPHILS # 0.1 10^3/ul (0.0-0.5); EOSINOPHILS % 1.5 % (0.0-7.0); HEMATOCRIT 27.9 % (37.0-47.0); HEMOGLOBIN 9.2 g/dl (12.0-16.0); LYMPHOCYTES # 1.9 10^3/ul (0.8-2.9); LYMPHOCYTES % 35.2 % (15.0-51.0); MEAN CORPUSCULAR HEMOGLOBIN 27.2 pg (29.0-33.0); MEAN CORPUSCULAR VOLUME 82.5 fl (82.0-101.0); MEAN PLATELET VOLUME 7.5 fl (7.4-10.4); MONOCYTE # 0.6 10^3/ul (0.3-0.9); MONOCYTES % 11.9 % (0.0-11.0); NEUTROPHIL # 2.7 10^3/ul (1.6-7.5); NEUTROPHILS % 50.8 % (39.0-77.0); PLATELET COUNT 349 10^3/UL (140-440); RED BLOOD COUNT 3.39 10^6/ul (4.20-5.40); RED CELL DISTRIBUTION WIDTH 19.1 % (11.5-14.5); UNCORRECTED WBC 5.3 10^3/ul (4.8-10.8); WHITE BLOOD COUNT 5.3 10^3/ul (4.8-10.8)
[2016-07-31 07:03] LABS: CONDITION 1; LH ANALYZER COMMENTS 1
[2016-07-31 07:58] VITALS: BP 103/54; RESP 16
[2016-07-31] MEDS: INSULIN ASPART [NOVOLOG] 3 ML PEN SC SCH ×4 (08:13→20:21)
[2016-07-31] MEDS: CIPROFLOXACIN 400MG/D5W 200 ML IVPB SCH ×2 (08:42→20:20)
[2016-07-31] MEDS: MOMETASONE 0.24 GM INHALER INH SCH ×2 (08:42→20:20)
[2016-07-31] MEDS: DOCUSATE SODIUM 100 MG CAP PO SCH ×3 (08:43→20:20)
[2016-07-31] MEDS: CALCIUM/VITAMIN D (500/200) TAB PO SCH ×2 (08:43→20:20)
[2016-07-31] MEDS: DULOXETINE 30 MG CAP DR PO SCH (08:43)
[2016-07-31] MEDS: FAMOTIDINE 20 MG TAB PO SCH ×2 (08:43→20:21)
[2016-07-31] MEDS: GABAPENTIN 300 MG CAP PO SCH ×3 (08:43→20:20)
[2016-07-31] MEDS: ENOXAPARIN 40 MG/0.4 ML SYG SC SCH (08:46)
[2016-07-31] MEDS: ATENOLOL 25 MG TAB PO SCH (09:00)
--- NOTE | 2016-07-31 13:18 | PN ---
Date/Time of Note Date/Time of Note DATE: 07/31/16 TIME: 13:13 Assessment/Plan VTE Prophylaxis VTE Prophylaxis Intervention: LMWH Lines/Catheters [facility] [place] Urinary Cath still in place: No Assessment/Plan Chief Complaint/Hosp Course Assessment/Plan 1. Acute sigmoid diverticulitis with microperforation. continue iv antibiotics with cipro/flagyl, now on clear liquid diet, I will DC IV fluids small fluid collection noted on CT abdomen not for drainage at present. 2. Urinary tract infection, on cipro 3. Essential hypertension. controlled, continue atenolol. 4. Major depression. astable, continue Cymbalta. 5. Hypothyroidism. Continue levothyroxine. 6. Diabetes mellitus. on insulin sliding scale and continue Lantus. 7. History of asthma. Continue Asmanex. 8. Deep venous thrombosis prophylaxis, on Lovenox. 9. For gastrointestinal prophylaxis, on Pepcid. 10 Electrolytes. Replace K+ and Mg2+ Encourage out of bed encourage p.o. intake Stable for dc tomorrow if lytes improved, pain controlled and cleared by surgery Will need 4-6 weeks antibiotics. If pain continues to improve anticipate discharge next 1-2 days with long-term antibiotics per general surgery likely repeat CT abdomen pelvis in several weeks time. Problems: Subjective 24 Hr Interval Summary Free Text/Dictation Still complaining of left lower quadrant pain, tolerating po diet, has had BM Exam/Review of Systems Vital Signs Vitals Vital Signs Date Time Temp Pulse Resp B/P Pulse Ox O2 Delivery O2 Flow Rate FiO2 07/31/16 07:58 98.5 55 16 103/54 94 Intake and Output 07/30/16 07/30/16 07/31/16 15:00 23:00 07:00 Intake Total 680 ml 1800 ml 950 ml Balance 680 ml 1800 ml 950 ml Exam GENERAL: Moderately obese lady awake alert oriented comfortable at rest no acute distress VITAL SIGNS: per chart NECK: Supple. No JVD or lymphadenopathy. CARDIAC EXAM: S1, S2. No added sounds or murmurs. CHEST: clear bilaterally, No added sounds, rales or wheezes ABDOMEN: Soft, mild tenderness left lower quadrant bowel sounds present EXTREMITIES: No cyanosis, clubbing or edema. NEUROLOGIC: Generalized weakness. No focal deficits. Results Result Diagram: 07/31/16 0502 07/31/16 0502 Results 24 hrs Laboratory Tests Test 07/30/16 17:05 07/30/16 20:25 07/31/16 01:50 07/31/16 05:02 Bedside Glucose 130 280 H 171 Anion Gap 10 Basophils # 0.0 Basophils % 0.6 Blood Morphology Comment Blood Urea Nitrogen 4 L Calcium Level 8.6 Carbon Dioxide Level 29 Chloride Level 106 Creatinine 0.42 L Eosinophils # 0.1 Eosinophils % 1.5 Glucose Level 132 # Hematocrit 27.9 L Hemoglobin 9.2 L Lymphocytes # 1.9 Lymphocytes % 35.2 Magnesium Level 1.6 L Mean Corpuscular Hemoglobin 27.2 L Mean Corpuscular Hemoglobin Concent 33.0 Mean Corpuscular Volume 82.5 Mean Platelet Volume 7.5 Monocytes # 0.6 Monocytes % 11.9 H Neutrophils # 2.7 Neutrophils % 50.8 Nucleated Red Blood Cells # 0.0 Nucleated Red Blood Cells % 0.0 Phosphorus Level 3.4 Platelet Count 349 Potassium Level 3.4 L Red Blood Count 3.39 L Red Cell Distribution Width 19.1 H Sodium Level 142 White Blood Count 5.3 Test 07/31/16 07:36 07/31/16 11:36 Bedside Glucose 167 274 H Medications Medications Current Medications Ciprofloxacin/ Dextrose 200 ml @ 200 mls/hr Q12 IVPB Last administered on 07/31 08:42; Admin Dose 200 MLS/HR; Start 07/28/16 at 09:00 Metronidazole/N/A (Flagyl 500 Mg (Pmx)/Evac Container) 50 ml @ 50 mls/hr Q8 IVPB Last administered on 07/31/16 05:16; Admin Dose 50 MLS/HR; Start at 09:30 Ondansetron HCl (Zofran Inj) 4 mg Q6H PRN IV NAUSEA AND/OR VOMITING; Start at 08:30 Morphine Sulfate (morphine) 2 mg Q4H PRN IV pain Last administered on 20:08; Admin Dose 2 MG; Start 07/28/16 at 08:30 Enoxaparin Sodium (Lovenox) 40 mg DAILY SC Last administered on 07/31/16 08:46 ; Admin Dose 40 MG; Start 07/28/16 at 09:00 Diagnostic Test (Pha) (Accucheck) 02 XX Last administered on 07/31/16 01: 51; Admin Dose 1 EA; Start 07/29/16 at 02:00 Atenolol (Tenormin) 25 mg DAILY PO Last administered on 07/30/16 08:36; Admin Dose 25 MG; Start 07/28/16 at 09:00 Cyclobenzaprine HCl (Flexeril) 10 mg DAILY PRN PO muscle spasms; Start at 08:30 Duloxetine HCl (Cymbalta) 60 mg DAILY PO Last administered on 07/31/16 08:43; Admin Dose 60 MG; Start 07/28/16 at 09:00 Gabapentin (Neurontin) 300 mg TID PO Last administered on 07/31/16 12:15; Admin Dose 300 MG; Start 07/28/16 at 09:00 Acetaminophen/ Hydrocodone Bitart ([place] (10/325)) 1 tab Q4H PRN PO PAIN Last administered on 07/31/16 01:51; Admin Dose 1 TAB; Start 07/28/16 at 08:30 Levothyroxine Sodium (Synthroid) 150 mcg DAILY@06 PO Last administered on 05:17; Admin Dose 150 MCG; Start 07/28/16 at 09:00 Mometasone Furoate (Asmanex) 1 puff BID INH Last administered on 07/31/16 08: 42; Admin Dose 1 PUFF; Start 07/28/16 at 10:00 Calcium/Vitamin D ([place]/ Vit-D (500/200)) 1 tab BID PO Last administered on 07/31/16 08:43; Admin Dose 1 TAB; Start 07/28/16 at 10:00 Miscellaneous Information 1 ea NOTE XX ; Start 07/28/16 at 08:30 Glucose (Glutose) 15 gm Q15M PRN PO DECREASED GLUCOSE; Start 07/28/16 at 08:30 Glucose (Glutose) 22.5 gm Q15M PRN PO DECREASED GLUCOSE; Start 07/28/16 at 08: 30 Dextrose (D50w Syringe) 25 ml Q15M PRN IV DECREASED GLUCOSE; Start 07/28/16 at 08:30 Dextrose (D50w Syringe) 50 ml Q15M PRN IV DECREASED GLUCOSE; Start 07/28/16 at 08:30 Glucagon (Glucagen) 1 mg Q15M PRN IM DECREASED GLUCOSE; Start 07/28/16 at 08:30 Glucose (Glutose) 15 gm Q15M PRN BUCCAL DECREASED GLUCOSE; Start 07/28/16 at 08 :30 Docusate Sodium (Colace) 100 mg TID PO Last administered on 07/31/16 12:15; Admin Dose 100 MG; Start 07/29/16 at 13:00 Acetaminophen/ Hydrocodone Bitart ([place] (5/325)) 1 tab Q4H PRN PO MILD PAIN LEVEL 1-3 Last administered on 07/31/16 10:08; Admin Dose 1 TAB; Start at 10:00 Acetaminophen/ Hydrocodone Bitart ([place] (5/325)) 2 tab Q4H PRN PO MODERATE PAIN LEVEL 4-6; Start 07/29/16 at 10:00 Famotidine (Pepcid) 20 mg BID PO Last administered on 07/31/16 08:43; Admin Dose 20 MG; Start 07/30/16 at 21:00 MAYI YANES MD, [facility] Jul 31, 2016 13:18
[2016-07-31] MEDS ORDERED: MAGNESIUM SULFATE 2 GM/50 ML 50 ML IVPB ONE (13:30)
[2016-07-31] MEDS ORDERED: POTASSIUM CHLORIDE 250 ML IVPB ONE (13:30)
[2016-07-31 19:24] VITALS: BP 131/60; RESP 20
--- NOTE | 2016-07-31 19:24 | CONS ---
DATE OF ADMISSION: 07/28/2016 DATE OF CONSULTATION: HISTORY OF PRESENT ILLNESS: Thank you for consulting with us. This is a 61-year-old admitted with diagnosis of acute sigmoid diverticulitis that is being managed by the hospitalist and general surge on. The request for consult is based on patient has been noticing some possible spotting for the la st few months. The patient denies any vaginal bleeding at this time and no other S[employer]OTE[employer] SPECIALIST associated sym ptoms. Patient is not sexually active. PAST MEDICAL HISTORY: Diverticulitis, essential hypertension, major depression, hypothyroidism, diabetes mellitus, asthma, deep venous thrombosis. MEDICATIONS: The patient is on a wide range of medication from: 1. [place]. 2. Atenolol. 3. Calciferol. 4. Cyclobenzaprine. 5. Fluoxetine. 6. Gabapentin. 7. Glipizide. 8. Betamethasone. 9. Lantus. 10. Levothyroxine. 11. Omeprazole. 12. Prednisone. 13. Ranitidine. 14. Tramadol. Currently the patient is not in pain. PHYSICAL EXAMINATION: VITAL SIGNS: Stable. GENERAL: Normal. ABDOMEN: Soft, not tender, some tenderness in the deep palpation of left side. GENITAL: There was no blood in vaginal vault. No cervix was felt. PAST SURGICAL HISTORY: Total abdominal hysterectomy. The patient does not know if the oophorectomy was done with the hysterectomy. ASSESSMENT AND PLAN: A 61-year-old with diagnosis of diverticulitis. There is no sign of any vagin al bleeding at this time, and there is no acute S[employer]IST intervention needed at this time. Imaging study like CAT scan or ultrasound is recommended. If there is any suspected S[employer] PROTECTION SPECIALIST related issue, please con tact us at [phone]. Otherwise, there is no acute S[employer] SPECIALIST intervention needed at this time. The patient ne eds to follow up with her dredge pipeman as outpatient to do a regular Pap smear and get evaluated fur thermore. Thank you for consulting us. Please do not hesitate to contact us at [phone]. Dictated By: DEQUAN VICTORIA/ELINA Conf#: [id number] DID#: [id number]
[2016-07-31] MEDS: morphine 2 MG INJ IV PRN (20:22)
[2016-08-01] MEDS: HYDROCODONE/APAP (10/325) TAB PO PRN ×3 (01:17→11:49)
[2016-08-01] MEDS: ACCUCHECK XX SCH (01:47)
[2016-08-01] MEDS: metroNIDAZOLE 500 MG/NS (PMX) 250 MG in EVAC CONTAINER 1 BOTTLE IVPB SCH ×2 (05:09→15:41)
[2016-08-01] MEDS: LEVOTHYROXINE 150 MCG TAB PO SCH (05:09)
[2016-08-01 05:59] LABS: BASOPHILS % 0.7 % (0.0-2.0); EOSINOPHILS # 0.1 10^3/ul (0.0-0.5); EOSINOPHILS % 1.4 % (0.0-7.0); HEMATOCRIT 27.7 % (37.0-47.0); HEMOGLOBIN 9.1 g/dl (12.0-16.0); LYMPHOCYTES # 1.6 10^3/ul (0.8-2.9); LYMPHOCYTES % 34.5 % (15.0-51.0); MEAN CORPUSCULAR HEMOGLOBIN 27.3 pg (29.0-33.0); MEAN CORPUSCULAR VOLUME 82.6 fl (82.0-101.0); MEAN PLATELET VOLUME 6.9 fl (7.4-10.4); MONOCYTE # 0.5 10^3/ul (0.3-0.9); MONOCYTES % 10.5 % (0.0-11.0); NEUTROPHIL # 2.4 10^3/ul (1.6-7.5); NEUTROPHILS % 52.9 % (39.0-77.0); PLATELET COUNT 350 10^3/UL (140-440); RED BLOOD COUNT 3.35 10^6/ul (4.20-5.40); RED CELL DISTRIBUTION WIDTH 19.1 % (11.5-14.5); UNCORRECTED WBC 4.5 10^3/ul (4.8-10.8); WHITE BLOOD COUNT 4.5 10^3/ul (4.8-10.8)
[2016-08-01 06:04] LABS: CONDITION 1; LH ANALYZER COMMENTS 1
[2016-08-01 06:08] LABS: POTASSIUM 3.2 mmol/L (3.5-5.1)
[2016-08-01 06:10] LABS: CREATININE 0.4 mg/dl (0.44-1.00)
[2016-08-01 06:11] LABS: MAGNESIUM 1.5 mg/dl (1.7-2.5); PHOSPHORUS 3.6 mg/dl (2.5-4.9)
[2016-08-01] MEDS ORDERED: MAGNESIUM SULFATE 3 GM in SOD CHLORIDE 0.9% 100 ML IVPB ONE (07:30)
[2016-08-01 07:34] VITALS: BP 101/61; RESP 16
[2016-08-01] MEDS ORDERED: POTASSIUM CHLORIDE 250 ML IVPB ONE (08:00)
[2016-08-01] MEDS: CIPROFLOXACIN 400MG/D5W 200 ML IVPB SCH (08:22)
[2016-08-01] MEDS: INSULIN ASPART [NOVOLOG] 3 ML PEN SC SCH ×3 (08:25→17:09)
[2016-08-01] MEDS: GABAPENTIN 300 MG CAP PO SCH ×2 (08:26→12:19)
[2016-08-01] MEDS: MOMETASONE 0.24 GM INHALER INH SCH (08:26)
[2016-08-01] MEDS: ENOXAPARIN 40 MG/0.4 ML SYG SC SCH (08:26)
[2016-08-01] MEDS: FAMOTIDINE 20 MG TAB PO SCH (08:26)
[2016-08-01] MEDS: DULOXETINE 30 MG CAP DR PO SCH (08:26)
[2016-08-01] MEDS: DOCUSATE SODIUM 100 MG CAP PO SCH ×2 (08:26→12:19)
[2016-08-01] MEDS: CALCIUM/VITAMIN D (500/200) TAB PO SCH (08:27)
[2016-08-01] MEDS: ATENOLOL 25 MG TAB PO SCH (09:00)
--- NOTE | 2016-08-01 11:54 | PN ---
Date/Time of Note Date/Time of Note DATE: 08/01/16 TIME: 11:52 Assessment/Plan Lines/Catheters Bird in Place (from [facility]): No Assessment/Plan Assessment/Plan 61-year-old female with acute sigmoid diverticulitis * White blood cell count normal * Surgically stable for discharge home when medically cleared. * Recommend by mouth antibiotics for 4 weeks. * Will need GI follow-up in 6 weeks for full colonoscopy. The above was discussed with the patient and the primary care team. Further recommendations will be made based on patient's clinical course Subjective 24 Hr Interval Summary Feels better. Pain is improving. Tolerating regular diet and having bowel movements. Afebrile. Exam/Review of Systems Vital Signs Vitals Vital Signs Date Time Temp Pulse Resp B/P Pulse Ox O2 Delivery O2 Flow Rate FiO2 08/01/16 07:34 98.3 62 16 101/61 97 Intake and Output 07/31/16 07/31/16 08/01/16 15:00 23:00 07:00 Intake Total 1220 ml 650 ml Balance 1220 ml 650 ml Exam Free Text/Dictation 61-year-old female with acute sigmoid diverticulitis * CT scan was personally reviewed. 2 cm fluid collection adjacent to sigmoid colon is likely too small for IR drainage. This should resolve with long-term antibiotics. * White blood cell count normal GENERAL: Awake, alert, oriented 3. No acute distress. CARDIOVASCULAR: S1S2, regular rate and rhythm. No murmurs appreciated. RESPIRATORY: Clear to auscultation bilaterally. ABDOMEN: Obese, Soft, bowel sounds present, nondistended, there is minimal left lower quadrant tenderness to deep palpation without any rebound or guarding. EXTREMITIES: Free range of motion 4. No cyanosis, edema, or clubbing. Results Result Diagram: 08/01/16 0515 08/01/16 0515 HERI BOOKER MD Aug 01, 2016 11:54
[2016-08-01] MEDS ORDERED: HYDR-906 PO (16:03)
[2016-08-01] MEDS ORDERED: METR500T PO (16:03)
[2016-08-01] MEDS ORDERED: LEVO500T10 PO (16:03)
--- NOTE | 2016-08-01 16:12 | DS ---
Date/Time of Note Date/Time of Note DATE: 08/01/16 TIME: 16:06 Discharge Summary Admission/Discharge Info Admit Date/Time Jul 28, 2016 at 06:46 Discharge Date/Time Final Diagnosis 1. Acute sigmoid diverticulitis with microperforation. continue on levaquin and flagyl, GI for elective colonoscopy in 4-6 weeks 2. Urinary tract infection, treated 3. Essential hypertension. controlled, continue atenolol. 4. Major depression. astable, continue Cymbalta. 5. Hypothyroidism. Continue levothyroxine. 6. Diabetes mellitus. on insulin sliding scale and continue Lantus. 7. History of asthma. Continue Asmanex. 8. Normocytic anemia, stable, follow up with PCP for work ups Patient Condition: Stable Hospital Course This is a 61-year-old female with a past medical history of diabetes mellitus, hypertension, depression, anxiety, open heart surgery several years ago, cardiac valve disease and lumbosacral radiculopathy, who has been complaining of having abdominal pain x1 day, with lower GI bleed, and was seen and evaluated at [facility] with CAT scan done which shows sigmoid diverticulitis, fluid collection adjacent to the colon, may represent a small abscess, status post cholecystectomy. The patient's WBC was found to be normal. Hemoglobin 10.4, hematocrit 32.6, WBC 6.3. She was treated with IV antibiotics in the course of the emergency room and was transferred to [facility] secondary to insurance purposes. At this time the patient continues to complain of having lower abdominal discomfort. She denies any nausea or having any diarrhea at this time. Patient is treated with iv antibiotics, bowel resting, and IVF for acute sigmoid diverticulitis. Patient's symptoms are improving. She is seen by Dr. Pires the surgeon. Patient will continue on oral antibiotics and follow up with PCP. SHe will need to have elective colonoscopy in 4-6 weeks per GI, patient is informed of this. Home Meds Active Scripts Hydrocodone/Acetaminophen ([place] 5-325 Tablet) 1 Each Tablet, 1 EACH PO Q4H, # 20 TAB Prov:FEDERICO LEAL MD 08/01/16 Metronidazole* (Flagyl*) 500 Mg Tablet, 500 MG PO QID for 14 Days, TAB Prov:FEDERICO LEAL MD 08/01/16 Levofloxacin* (Levofloxacin*) 500 Mg Tablet, 500 MG PO DAILY for 14 Days, TAB Prov:FEDERICO LEAL MD 08/01/16 Reported Medications Tramadol Hcl* (Tramadol* ER) 100 Mg Tab.er.24h, 50 MG PO DAILY, #30 TAB 01/28/16 Prednisone* (Prednisone*) 5 Mg Tab, 5 MG PO DAILY, TAB 01/28/16 Insulin Glargine,Hum.rec.anlog (Lantus Solostar) 100 Units/Ml Pen, 1 UNIT SC DAILY, #1 SYR 01/28/16 Hydrocodone Bit-Acetaminophen* (Hydrocodone-APAP*) 10-325 Tablet, 1 TAB PO Q4H Y for PAIN, TAB 01/28/16 Glipizide* (Glipizide*) 5 Mg Tablet, 5 MG PO DAILY, TAB 01/28/16 Duloxetine Hcl* (Duloxetine Hcl*) 60 Mg Capsule.dr, 60 MG PO DAILY, #30 CAP 01/28/16 Calcium Citrate/Vitamin D (Citracal-Vitamin D 200 MG-250) 1 Each Tablet, 1 EACH PO BID, TAB 01/28/16 Atenolol* (Atenolol*) 25 Mg Tablet, 25 MG PO DAILY, #30 TAB 01/28/16 Ranitidine Hcl (Ranitidine Hcl) 150 Mg Capsule, 150 MG PO BID 01/07/13 Beclomethasone Dip* (Qvar 80*) 7.3 Gm Inha, 7.3 GM IH 2 PUFFS BID 01/07/13 Omeprazole* (Omeprazole*) 40 Mg Capsule.dr, 20 MG PO DAILY 01/07/13 Levothyroxine Sodium* (Levothyroxine Sodium*) 137 Mcg Tablet, 150 MCG PO DAILY 01/07/13 Indomethacin (Indomethacin) 75 Mg Capsule.sa, 75 MG PO BID 01/07/13 Gabapentin* (Gabapentin*) 300 Mg Capsule, 300 MG PO TID Y 01/07/13 Cyclobenzaprine Hcl* (Cyclobenzaprine Hcl*) 10 Mg Tablet, 10 MG PO DAILY 01/07/13 Discontinued Reported Medications Indomethacin (Indomethacin) 75 Mg Capsule.sa, 75 MG PO 01/28/16 Follow-up Plan PCP in 1-2 weeks GI for colonoscopy in 4-6 weeks Pending Labs Laboratory Tests Test 07/31/16 16:56 07/31/16 20:18 08/01/16 01:46 08/01/16 05:15 Bedside Glucose 198mg/dL (70-220) 212mg/dL (70-220) 204mg/dL (70-220) Anion Gap 12 (8-16) Basophils # 0.010^3/ul (0.0-0.1) Basophils % 0.7% (0.0-2.0) Blood Morphology Comment Blood Urea Nitrogen 3mg/dl (7-20) Calcium Level 9.0mg/dl (8.4-10.2) Carbon Dioxide Level 30mmol/L (21-31) Chloride Level 102mmol/L (97-110) Creatinine 0.40mg/dl (0.44-1.00) Eosinophils # 0.110^3/ul (0.0-0.5) Eosinophils % 1.4% (0.0-7.0) Glucose Level 154mg/dl (70-220) Hematocrit 27.7% (37.0-47.0) Hemoglobin 9.1g/dl (12.0-16.0) Lymphocytes # 1.610^3/ul (0.8-2.9) Lymphocytes % 34.5% (15.0-51.0) Magnesium Level 1.5mg/dl (1.7-2.5) Mean Corpuscular Hemoglobin 27.3pg (29.0-33.0) Mean Corpuscular Hemoglobin Concent 33.0g/dl (32.0-37.0) Mean Corpuscular Volume 82.6fl (82.0-101.0) Mean Platelet Volume 6.9fl (7.4-10.4) Monocytes # 0.510^3/ul (0.3-0.9) Monocytes % 10.5% (0.0-11.0) Neutrophils # 2.410^3/ul (1.6-7.5) Neutrophils % 52.9% (39.0-77.0) Nucleated Red Blood Cells # 0.010^3/ul (0.0-0.0) Nucleated Red Blood Cells % 0.0/100WBC (0.0-0.0) Phosphorus Level 3.6mg/dl (2.5-4.9) Platelet Count 56030^3/UL (140-440) Potassium Level 3.2mmol/L (3.5-5.1) Red Blood Count 3.3510^6/ul (4.20-5.40) Red Cell Distribution Width 19.1% (11.5-14.5) Sodium Level 141mmol/L (135-144) White Blood Count 4.510^3/ul (4.8-10.8) Test 08/01/16 07:50 08/01/16 11:19 Bedside Glucose 172mg/dL (70-220) 258mg/dL (70-220) FEDERICO LEAL MD Aug 01, 2016 16:12
[2016-08-01 20:40] VITALS: BP 135/63; RESP 19
== END 2016-08-01 19:58 | disposition home or self-care (01) | DRG 392 ==
LOC: PP2 06:46
PROVIDERS: ADMIT Student in an Organized Health Care Education/Training Program; ATTEND Student in an Organized Health Care Education/Training Program
DX: K57.92 Diverticulitis of intestine, part unspecified, without perforation or abscess without bleeding (principal); N39.0 Urinary tract infection, site not specified; I10 Essential (primary) hypertension; F32.9 Major depressive disorder, single episode, unspecified; E11.9 Type 2 diabetes mellitus without complications; D64.9 Anemia, unspecified; E03.9 Hypothyroidism, unspecified; J45.909 Unspecified asthma, uncomplicated
CPT/HCPCS: 80048; 80076; 81001; 81003; 82962; 83036; 83735; 84100; 84443; 85025; 97110; 97116; 97162; 97530; J0744; J1650; J1815; J2270; J3475; J3480; J7030

== ENCOUNTER 2016-10-08 17:20 | Inpatient (IN) | payer BC ==
[~2016-10-08] VITALS: Ht 152.4 cm; Wt 66.4 kg
[~2016-10-08 17:20] MED LIST changes: +HYDR-906 PO; +LEVO500T10 PO; +METR500T PO
[2016-10-09 18:37] VITALS: Ht 152.4 cm; Wt 66.4 kg
[2016-10-09 18:42] VITALS: BP 151/62; PULSE 68; RESP 18
[2016-10-09 20:00] VITALS: BP 129/60; RESP 20
[2016-10-09] MEDS ORDERED: MTF1000T PO (20:32)
[2016-10-09] MEDS ORDERED: GABA100C PO (20:32)
[2016-10-09] MEDS ORDERED: CLON-379 PO (20:32)
[2016-10-09] MEDS ORDERED: CALC600T11 PO (20:32)
[2016-10-09] MEDS ORDERED: PANT40TA4 PO (20:32)
[2016-10-09] MEDS ORDERED: ACET325T33 PO (20:32)
[2016-10-09] MEDS ORDERED: HYDR-906 PO (20:32)
[2016-10-09] MEDS ORDERED: LANT3I SC (20:32)
[2016-10-09] MEDS ORDERED: ALBU90AE INHALATION (20:32)
[2016-10-09] MEDS ORDERED: PUMP MISCELLANEOUS (20:32)
[2016-10-09] MEDS ORDERED: SYN15 PO (20:32)
[2016-10-09] MEDS ORDERED: SIMV20TA PO (20:32)
[2016-10-09] MEDS ORDERED: PARO40TA79 PO (20:32)
[2016-10-09] MEDS: HYDROCODONE/APAP (5/325) TAB PO PRN (23:34)
[2016-10-09] MEDS ORDERED: DEXTROSE 50% 50 ML SYRINGE IV PRN ×2 (23:45)
[2016-10-09] MEDS ORDERED: GLUCAGON 1 MG INJ IM PRN (23:45)
[2016-10-09] MEDS ORDERED: GLUCOSE GEL 15 GRAM TUBE BUCCAL PRN (23:45)
[2016-10-09] MEDS ORDERED: GLUCOSE GEL 15 GRAM TUBE PO PRN ×2 (23:45)
[2016-10-10] MEDS ORDERED: FAMOTIDINE 20 MG INJ IV SCH
[2016-10-10] MEDS ORDERED: METOCLOPRAMIDE 10 MG INJ IV PRN
[2016-10-10] MEDS ORDERED: ALBUTEROL 0.083% (NEB) 2.5 MG/3 ML AMP HHN PRN
[2016-10-10] MEDS ORDERED: morphine 2 MG INJ IV PRN
[2016-10-10] MEDS: SOD CHLORIDE 0.9% 1,000 ML IV SCH ×4 (01:22→19:36)
[2016-10-10] MEDS ORDERED: ACCU-CHEK XX SCH ×2 (02:00)
[2016-10-10] MEDS ORDERED: morphine 4 MG/ML VIAL IV STA (02:35)
[2016-10-10] MEDS: morphine 2 MG INJ IV PRN ×6 (02:55→22:40)
[2016-10-10] MEDS: INSULIN ASPART [NOVOLOG] 3 ML PEN SC SCH ×5 (05:00→21:00)
[2016-10-10] MEDS ORDERED: INSULIN ASPART [NOVOLOG] 3 ML PEN SC SCH ×2 (05:00→08:15)
--- NOTE | 2016-10-10 05:36 | HP ---
Date/Time of Note Date/Time of Note DATE: 10/10/16 TIME: 05:35 Assessment/Plan VTE Prophylaxis VTE Prophylaxis Intervention: anti-embolic stocking Lines/Catheters IV Catheter Type (from Nrsg): Saline Lock Assessment/Plan Assessment/Plan 1) Rectovaginal Fistual - Admitted to Med-Surg - NPO - CONSULT: Surgery - Dr. Jiménez, notified - Supportive Care - Pain Control - IV Hydration HPI/ROS Admit Date/Time Admit Date/Time Oct 09, 2016 at 17:35 Hx of Present Illness At approximately 2000 on 10/09/16, I received a call on that this patient had been on the floor since 4 pm and she needed orders. She is a transfer patient that I was expecting the day before, but I wanted to clear the transfer with Dr. Jiménez before I accepted her, and I did not hear back from him that night. Apparently she had already been approved, through her insurance, to undergo repair of her rectovaginal fistula. I have now spoken with Dr. Jiménez, and he will be taking her to surgery as it has already been planned. Unfortunately, patient became symptomatic and presented to the ER that was closer to her house , and once stabilized was available for transfer to [facility] for Insurance reasons. ROS Subjective hx not possible: other (sleeping soundy so limited ROS obtained.) Constitutional: No chills, No febrile Respiratory: No cough, No shortness of breath Cardiovascular: No chest pain, No edema, No palpitations Gastrointestinal: No nausea, No vomiting PMH/Family/Social Past Medical History Chronic LBP - "bad disks" Past Surgical History Open Heart Surgery for Patent Foramen Ovale Social History Smoking Status: Former smoker Exam/Review of Systems Vital Signs Vitals Vital Signs Date Time Temp Pulse Resp B/P Pulse Ox O2 Delivery O2 Flow Rate FiO2 10/09/16 20:00 98.6 65 20 129/60 94 10/09/16 18:42 Room Air Exam Exam General: Sleeping, easily arousable, in no acute distress Eyes: Sclera White HENT: Normocephalic/Atraumatic, External Ears/Nose Normal, Moist Mucus Membranes Neck: Supple, Trachea Midline Cardiovascular: Normal Rate, Regular Rhythm, Normal S1 and S2, No Murmur, No Extra Sounds. Radial pulse +2/4. No pedal Edema. Pulmonary: Clear to Auscultation Bilaterally, Normal Respiratory Effort, No Rales, Rhonchi or Wheezes Gastrointestinal: Normoactive Bowel Sounds, Soft, mild tenderness, no guarding or rebound, Non-Distended, No Hepatosplenomegaly Appreciated, No Pulsatile Masses Urogenital: Deferred Musculoskeletal: Normal Muscle Bulk and Tone Neurological: CN II - XII Grossly Intact, Non-Focal, Speech Normal Integumentary: Normal Moisture and Temperature, Good Turgor, No Jaundice, No Visible Rash Lymphatic: No Cervical Lymphadenopathy Psychiatric: Appropriate Mood and Affect, Good Eye Contact Medications Medications Current Medications Acetaminophen/ Hydrocodone Bitart ([place] (5/325)) 1 tab Q4H PRN PO PAIN Last administered on 10/09/16 23:34; Admin Dose 1 TAB; Start 10/09/16 at 23:00 Miscellaneous Information 1 ea NOTE XX ; Start 10/09/16 at 23:45 Glucose (Glutose) 15 gm Q15M PRN PO DECREASED GLUCOSE; Start 10/09/16 at 23:45 Glucose (Glutose) 22.5 gm Q15M PRN PO DECREASED GLUCOSE; Start 10/09/16 at 23:45 Dextrose (D50w Syringe) 25 ml Q15M PRN IV DECREASED GLUCOSE; Start 10/09/16 at 23:45 Dextrose (D50w Syringe) 50 ml Q15M PRN IV DECREASED GLUCOSE; Start 10/09/16 at 23:45 Glucagon (Glucagen) 1 mg Q15M PRN IM DECREASED GLUCOSE; Start 10/09/16 at 23:45 Glucose 15 gm 15 gm Q15M PRN BUCCAL DECREASED GLUCOSE; Start 10/09/16 at 23:45 Sodium Chloride (NS) 1,000 ml @ 100 mls/hr Q10H IV Last administered on 01:22; Admin Dose 100 MLS/HR; Start 10/09/16 at 23:36 Metoclopramide HCl (Reglan) 10 mg Q6H PRN IV NAUSEA AND/OR VOMITING; Start 04/18 at 00:00 Famotidine (Pepcid Iv) 20 mg DAILY IV ; Start 10/10/16 at 09:00 Insulin Aspart (Novolog Insulin Pen) NOVOLOG *MILD* ALGORI... Q4 SC ; Start 04/18 at 05:00 Morphine Sulfate (morphine) 4 mg Q3 PRN IV SEVERE PAIN LEVEL 7-10 Last administered on 10/10/16t 02:55; Admin Dose 4 MG; Start 10/10/16 at 03:00 SINDHU VALENTE DO Oct 10, 2016 05:36
[2016-10-10 05:52] LABS: ADD SCAN DIFF NO
[2016-10-10 06:05] LABS: BASOPHILS % 0.5 % (0.0-2.0); EOSINOPHILS # 0.1 10^3/ul (0.0-0.5); EOSINOPHILS % 0.8 % (0.0-7.0); LYMPHOCYTES # 1.8 10^3/ul (0.8-2.9); LYMPHOCYTES % 26.7 % (15.0-51.0); MEAN CORPUSCULAR HGB CONC 29.6 g/dl (32.0-37.0); MEAN CORPUSCULAR VOLUME 84.4 fl (82.0-101.0); MEAN PLATELET VOLUME 7.9 fl (7.4-10.4); MONOCYTE # 0.7 10^3/ul (0.3-0.9); MONOCYTES % 10.4 % (0.0-11.0); NEUTROPHIL # 4.1 10^3/ul (1.6-7.5); NEUTROPHILS % 61.1 % (39.0-77.0); PLATELET COUNT 376 10^3/UL (140-415); RED CELL DISTRIBUTION WIDTH 14.9 % (11.5-14.5); WHITE BLOOD COUNT 6.7 10^3/ul (4.8-10.8)
[2016-10-10 06:14] LABS: INR 1.05; PROTIME 13.7 Sec (12.2-14.2); PT RATIO 1.1
[2016-10-10 06:15] LABS: PARTIAL THROMBOPLASTIN TIME 32.3 Sec (25.0-35.0)
[2016-10-10 06:16] LABS: ALBUMIN 2.4 g/dl (3.3-4.9)
[2016-10-10 06:17] LABS: POTASSIUM 3.7 mmol/L (3.5-5.1)
[2016-10-10 06:19] LABS: ALBUMIN/GLOBULIN RATIO 0.85; BILIRUBIN,INDIRECT 0.2 mg/dl (0-1.1); BILIRUBIN,TOTAL 0.2 mg/dl (0.2-1.3); CREATININE 0.41 mg/dl (0.44-1.00); TOTAL PROTEIN 5.2 g/dl (6.1-8.1)
[2016-10-10 06:20] LABS: CALCIUM 8.7 mg/dl (8.4-10.2)
[2016-10-10] MEDS: LEVOTHYROXINE 150 MCG TAB PO SCH (08:09)
[2016-10-10] MEDS: FAMOTIDINE 20 MG INJ IV SCH (09:05)
--- NOTE | 2016-10-10 16:21 | RADRPT ---
PROCEDURE: XR Chest. CLINICAL INDICATION: Preoperative. Gastrointestinal bleeding. TECHNIQUE: Two views. Frontal and lateral. COMPARISON: No prior study is available for comparison. FINDINGS: The lungs are clear. The heart is enlarged. There are sternal wires. There is no pleural effusion. There is no pneumothorax. IMPRESSION: 1. Cardiomegaly. Previous median sternotomy. 2. Clear lungs. RPTAT: QQ .Enrike Torres MD, MD Date Time Electronically viewed and signed by .Enrike Torres MD, on 10/10/2016 16:20 .R/
[2016-10-10] MEDS ORDERED: SOD CHLORIDE 0.9% 250 ML IV* ONE (16:36)
[2016-10-10] MEDS: PIPER-TAZO 3.375 GM IV (PMX) 100 ML IVPB SCH ×2 (17:41→23:22)
[2016-10-10 19:51] VITALS: BP 133/62; RESP 18
[2016-10-10] MEDS: HYDROCODONE/APAP (5/325) TAB PO PRN (20:45)
--- NOTE | 2016-10-10 22:32 | CONS ---
DATE OF ADMISSION: 10/09/2016 DATE OF CONSULTATION: 10/10/2016 TYPE OF CONSULTATION: Surgical (actually consultation was requested from Dr. Jiménez and I am seeing the patient on behalf of Dr. Jiménez). REASON FOR CONSULTATION: Lower gastrointestinal bleeding. HISTORY OF PRESENT ILLNESS: This patient was transferred from [facility] on 10/09/2016 at 1642. The reason for transfer was that the patient referred to the emergency room in [place] on , 4 days ago, complaining of rectal bleeding. She was evaluated over there and they did CT scan, as the report is sent with the patient. It showed presence of diverticulitis and 2 abscesses in the pelvis. Also, on the CT scan also showed cardiomegaly. So the patient was transferred due to insurance problems to this hospital. According to the hospitalist, they admitted that the patient as a GI bleeding. They did not mention anything about diverticulitis. In continuation , should mention about this present illness is that in 07/2016, this patient was admitted to [facility] with the diagnosis of diverticulitis and was treated for a couple of days and antibiotic was given. The patient was discharged. The patient claims that since discharge, she has continued to have lower abdominal pain, especially left side. No nausea, no vomiting, no chills, no fever, but has had diarrhea in the past 3 days and subsequently 4 days ago had 1 episode of rectal bleeding. She has had a couple of episodes of rectal bleeding since October last year and every time has been managed by the physicians in the [facility], but no major surgery or anything has been done. PAST MEDICAL HISTORY: The patient has had history of open heart surgery due to what she claims the presence of a hole in the heart. I am not sure if this was ventriculoseptal defect or patent ductus arteriosus or what other pathology. Was 30 years ago. The patient is diabetic and is on insulin. High cholesterol. Hypothyroidism. Depression. History of cholecystectomy. History of hysterectomy. ALLERGIES: TO BACTRIM. MEDICATIONS: There is a long list of medications, please refer to the reconciliation list. PHYSICAL EXAMINATION: GENERAL: The patient is a 61-year-old female who is lying down in the bed, quiet, calm, and does not look in acute distress. VITAL SIGNS: Temperature recorded 99.7, heart rate 65, respirations 18, blood pressure 133/62, saturation 92% on room air. LABORATORY DATA: Today, WBC 6700, hemoglobin 8, hematocrit 27, neutrophils 61% , platelet count 376. Chemistry: Today, sodium and potassium normal, BUN 12_, creatinine 0.41. Alkaline phosphatase 343, high. Total protein 5.2, albumin 2.4. Coagulation profile: PT 30.7, INR 1.05. Chest x-ray revealed presence of cardiomegaly, previous median sternotomy, clear lungs. GENERAL: Awake, alert, oriented x3. VITAL SIGNS: Mentioned. HEAD: Normocephalic. EYES: Pupils equal, round, reactive to light and accommodative. Extraocular muscles, full range of motion. CHEST: Symmetrical expansion. HEART: Regular rhythm. No murmur. Scar of sternotomy is there. NECK: Carotids no bruit. ABDOMEN: Not distended. Moderately protruded with fat. Bowel sound is present. Abdomen is soft, but tender in the left lower quadrant and right lower quadrant on deep pressure. No rebound tenderness. LOWER EXTREMITIES: No pitting edema, but there were some reticular varicose veins here and there, clusters of them. The patient states that her left lower extremity, leg from toes to the upper third of the leg is numb and she does not have any feeling for that. She cannot move her toes and also the ankle movement is very limited and is very weak. That is why the patient is using a walker for walking. RECTAL: Performed. Rectum is empty. There is no mass. There was no evidence of blood in the rectum. IMAGING: The CT scan which was done in [facility] on 10/07/2016 has revealed there were no findings to suggest acute appendicitis. The appendix is not specifically identified. Previous CT scan dated 07/27/2016 suggested sigmoid colon diverticulitis with associated probable abscess. These findings persist with likely diverticular abscess, now measuring approximately 32 mm in maximum diameter and containing a gas-fluid level. There is a second more inferior collection measuring about 31 mm in diameter. This may have a fistulous connection to the colon and the other abscess. There is no bowel obstruction, pneumatosis, or pneumoperitoneum. There is no evidence for aortic aneurysm. There is no pathologic adenopathy. Abdominal wall reveals no acute pathology. IMAGING IMPRESSION: 1. Sigmoid colon diverticulitis with associated complex abscesses or abscess as described. 2. No renal or ureteral calculi. No criteria for obstructive uropathy. 3. No bowel obstruction. No pneumatosis or pneumoperitoneum. 4. Gallbladder removed. 5. Hiatal hernia with the proximal stomach in the chest. This report was electronically signed by Nikko Wynne MD, on 10/07/2016 at 3:00 a.m. It should be mentioned that also the patient states that she is passing diarrhea stool per vagina since actually 2 months ago. IMPRESSION: This is a 61-year-old female who has many medical problems includin. Diabetes mellitus on insulin. 2. High cholesterol/hyperlipidemia. 3. Hypothyroidism. 4. Weakness and numbness of the left lower extremity from knee down on the left side. 5. History of cholecystectomy. 6. History of hysterectomy. 7. The patient has diverticulosis and diverticulitis and abscesses. 8. 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 9. Lower gastrointestinal bleeding, probably from diverticulosis x3 since last year. PLAN: I have started patient on Zosyn antibiotic for the abscess and diverticulitis. The patient should have further evaluation by product development because of the cardiomegaly considering possible need for operation in her recent future. The patient should be seen by GI colleagues also for evaluation of rectal bleeding, possibly a colonoscopy. The patient should be managed for diabetes mellitus. The patient should be controlled and watched for more bleeding and correction of the hemoglobin. If all the process is done and if everything is stable and the patient is suitable for operation, we are planning to proceed with operation on , 10/13/2016, with laparotomy, drainage of the abscesses, and diverting colostomy to promote_ the closure of the fistula. She probably will need another operation later on for resection and reanastomosis of colostomy. I have discussed these findings and the plan with our colleagues and hospitalists and are waiting for their role in the stabilizing and optimizing this patient. I have seen this patient for Dr. Jiménez and he is involved in surgical intervention for this patient . Dictated By: TICO PUCKETT MD PS/NTS Conf#: [id number] DID#: [id number] CC: NOAH HAMILTON MD;*EndCC* MTDD
[2016-10-11] MEDS: INSULIN ASPART [NOVOLOG] 3 ML PEN SC SCH ×3 (01:00→08:01)
[2016-10-11] MEDS: HYDROCODONE/APAP (5/325) TAB PO PRN (01:15)
[2016-10-11] MEDS: morphine 2 MG INJ IV PRN ×5 (03:36→20:07)
[2016-10-11] MEDS: SOD CHLORIDE 0.9% 1,000 ML IV SCH ×2 (05:36→15:54)
[2016-10-11] MEDS: LEVOTHYROXINE 150 MCG TAB PO SCH (06:17)
[2016-10-11] MEDS: PIPER-TAZO 3.375 GM IV (PMX) 100 ML IVPB SCH ×3 (06:18→16:52)
[2016-10-11] MEDS: HYDROCODONE/APAP (10/325) TAB PO PRN ×2 (06:18→22:38)
[2016-10-11 07:22] VITALS: BP 128/59; RESP 20
[2016-10-11] MEDS: FAMOTIDINE 20 MG INJ IV SCH (07:53)
--- NOTE | 2016-10-11 08:26 | CONS ---
Date/Time of Note Date/Time of Note DATE: 10/11/16 TIME: 08:16 Assessment/Plan Assessment/Plan Chief Complaint/Hosp Course Pre-operative evaluation: The pt is to undergo moderate risk surgery. She has a h/o cardiac surgery (?ASD closure based on history) which presumably is not an active issue. She is not very ambulatory but probably exercises for ~4 METs without significant symptoms. No significant heart failure on exam and pt is otherwise asymptomatic. Therefore she is at intermediate risk should she have surgery. We will check an echo to evaluate for any major abnormalities Cardiac surgery: ~25 yrs ago at [facility]. Presumably ASD closure. Likely explains cardiomegaly on imaging Diverticulitis/abscesses/fistula: plan for possible surgical intervention DM Neuropathy -echo -ok to proceed with surgery as planned without further cardiac testing assuming echo does not show any major abnormalities. Problems: Consultation Date/Type/Reason Admit Date/Time Oct 09, 2016 at 17:35 Date of Consultation: Oct 11, 2016 Type of Consultation: Cardiology Reason for Consultation Pre-operative evaluation Referring Provider: ARAMIS SY Hx of Present Illness 61 yo F with a h/o cardiac surgery (for "hole in heart" ~25 yrs ago, presumably ASD closure), DM, neuropathy, gait abnormality requiring the use of a walker, diverticulitis, who was admitted to [place] with abdominal pain and was found to have recurent diverticulitis complicated by abscesses and possible colovesicular fistula which is being planned for surgical intervention. The pt notes that she had surgery ~25 yrs ago for a "hole" in her heart. She notes that around a month after she had cardiac arrest and was supposed to have a pacemaker but the decision was made against this. The details are not clear. However she notes that she has been doing well since then. She does not see a movie star or take any cardiac meds. She uses her walker to ambulate and can walk ~1/2 block and is limited by her leg pain. No chest pain with exertion. She has SOB at times with exertion. No leg edema, orthopnea, PND. per hPI Past Medical History per hPI Social History Smoking Status: Former smoker Exam/Review of Systems Vital Signs Vitals Vital Signs Date Time Temp Pulse Resp B/P Pulse Ox O2 Delivery O2 Flow Rate FiO2 10/11/16 07:22 99.3 68 20 128/59 91 10/09/16 18:42 Room Air Intake and Output 10/10/16 10/10/16 10/11/16 15:00 23:00 07:00 Intake Total 600 ml 1930 ml Balance 600 ml 1930 ml Exam Constitutional: alert, oriented Psych: no complaints Head: atraumatic, normocephalic Neck: jvd (7cm) Respiratory: clear to auscultation, No crackles/rales Cardiovascular: regular rate and rhythm, systolic murmur (2/6), No edema Gastrointestinal: non-tender, soft Neurological: nl mental status, nl speech Skin: No rash or lesions Results EKG: sinus, LAD, no significant ST changes Result Diagram: 10/10/1633 10/10/1633 Results 24 hrs Laboratory Tests Test 10/10/16 11:42 10/10/16 16:39 10/10/16 20:43 10/11/16 01:23 Bedside Glucose 98 102 124 99 Test 10/11/16 04:57 10/11/16 07:42 Bedside Glucose 99 90 Medications Medications Current Medications Miscellaneous Information 1 ea NOTE XX ; Start 10/09/16 at 23:45 Glucose (Glutose) 15 gm Q15M PRN PO DECREASED GLUCOSE; Start 10/09/16 at 23:45 Glucose (Glutose) 22.5 gm Q15M PRN PO DECREASED GLUCOSE; Start 10/09/16 at 23:45 Dextrose (D50w Syringe) 25 ml Q15M PRN IV DECREASED GLUCOSE; Start 10/09/16 at 23:45 Dextrose (D50w Syringe) 50 ml Q15M PRN IV DECREASED GLUCOSE; Start 10/09/16 at 23:45 Glucagon (Glucagen) 1 mg Q15M PRN IM DECREASED GLUCOSE; Start 10/09/16 at 23:45 Glucose 15 gm 15 gm Q15M PRN BUCCAL DECREASED GLUCOSE; Start 10/09/16 at 23:45 Sodium Chloride (NS) 1,000 ml @ 100 mls/hr Q10H IV Last administered on t 17:41; Admin Dose 100 MLS/HR; Start 10/09/16 at 23:36 Metoclopramide HCl (Reglan) 10 mg Q6H PRN IV NAUSEA AND/OR VOMITING; Start 04/18 at 00:00 Famotidine (Pepcid Iv) 20 mg DAILY IV Last administered on 10/11/16 07:53; Admin Dose 20 MG; Start 10/10/16 at 09:00 Insulin Aspart (Novolog Insulin Pen) NOVOLOG *MILD* ALGORI... Q4 SC ; Start 04/18 at 05:00 Morphine Sulfate 4 mg 4 mg Q3 PRN IV SEVERE PAIN LEVEL 7-10 Last administered on 10/11/16 07:53; Admin Dose 4 MG; Start 10/10/16 at 03:00 Piperacillin Sod/ Tazobactam Sod (Zosyn 3.375gm/ 100 ml (Pmx)) 100 ml @ 200 mls /hr Q6 IVPB Last administered on 10/11/16 06:18; Admin Dose 200 MLS/HR; Start 10/10/16 at 18:00 Acetaminophen/ Hydrocodone Bitart ([place] (10325)) 1 tab Q4H PRN PO PAIN Last administered on 10/11/16 06:18; Admin Dose 1 TAB; Start 10/11/16 at 06:00 Diphenhydramine HCl (Benadryl) 25 mg Q6H PRN IV ITCHING; Start 10/11/16 at 06: 00 EVELYN MORALEZ Oct 11, 2016 08:26
[2016-10-11 10:45] LABS: ADD SCAN DIFF NO
[2016-10-11 10:48] LABS: BASOPHILS % 0.4 % (0.0-2.0); EOSINOPHILS # 0.1 10^3/ul (0.0-0.5); EOSINOPHILS % 0.9 % (0.0-7.0); HEMATOCRIT 33.3 % (37.0-47.0); HEMOGLOBIN 10.2 g/dl (12.0-16.0); LYMPHOCYTES # 1.4 10^3/ul (0.8-2.9); LYMPHOCYTES % 18.9 % (15.0-51.0); MEAN CORPUSCULAR HEMOGLOBIN 25.7 pg (29.0-33.0); MEAN CORPUSCULAR HGB CONC 30.6 g/dl (32.0-37.0); MEAN CORPUSCULAR VOLUME 83.9 fl (82.0-101.0); MEAN PLATELET VOLUME 7.9 fl (7.4-10.4); MONOCYTE # 0.8 10^3/ul (0.3-0.9); MONOCYTES % 10.6 % (0.0-11.0); NEUTROPHIL # 5.1 10^3/ul (1.6-7.5); NEUTROPHILS % 68.5 % (39.0-77.0); PLATELET COUNT 362 10^3/UL (140-415); RED BLOOD COUNT 3.97 10^6/ul (4.20-5.40); RED CELL DISTRIBUTION WIDTH 14.6 % (11.5-14.5); WHITE BLOOD COUNT 7.5 10^3/ul (4.8-10.8)
[2016-10-11 11:04] LABS: CALCIUM 8.1 mg/dl (8.4-10.2); CREATININE 0.39 mg/dl (0.44-1.00); MAGNESIUM 1.5 mg/dl (1.7-2.5)
[2016-10-11] MEDS: Insulin NOVOLOG SS MILD Algorithm (SS with meals and bedtime) SC SCH ×3 (11:55→21:00)
[2016-10-11] MEDS ORDERED: INSULIN ASPART [NOVOLOG] 3 ML PEN SC SCH (12:00)
[2016-10-11 12:16] LABS: ADD SCAN DIFF NO
[2016-10-11 12:24] LABS: BASOPHILS % 0.4 % (0.0-2.0); EOSINOPHILS # 0.1 10^3/ul (0.0-0.5); HEMATOCRIT 33.9 % (37.0-47.0); HEMOGLOBIN 10.5 g/dl (12.0-16.0); LYMPHOCYTES # 1.5 10^3/ul (0.8-2.9); LYMPHOCYTES % 20.8 % (15.0-51.0); MEAN CORPUSCULAR VOLUME 83.9 fl (82.0-101.0); MEAN PLATELET VOLUME 7.8 fl (7.4-10.4); MONOCYTE # 0.7 10^3/ul (0.3-0.9); MONOCYTES % 9.7 % (0.0-11.0); NEUTROPHIL # 4.8 10^3/ul (1.6-7.5); NEUTROPHILS % 67.5 % (39.0-77.0); PLATELET COUNT 398 10^3/UL (140-415); RED BLOOD COUNT 4.04 10^6/ul (4.20-5.40); RED CELL DISTRIBUTION WIDTH 14.4 % (11.5-14.5); WHITE BLOOD COUNT 7.1 10^3/ul (4.8-10.8)
[2016-10-11] MEDS ORDERED: MAGNESIUM SULFATE 4 GM/100 ML 100 ML IVPB ONE (16:30)
--- NOTE | 2016-10-11 16:34 | PN ---
Date/Time of Note Date/Time of Note DATE: 10/11/16 TIME: 16:29 Assessment/Plan VTE Prophylaxis VTE Prophylaxis Intervention: SCD's Lines/Catheters IV Catheter Type (from Nrsg): Peripheral IV Assessment/Plan Chief Complaint/Hosp Course 1. Likely colovesical fistula with diverticulosis and diverticulitis and abscesses Plan for surgery this Continue [employer] consult for preop clearance appreciated, patient cleared for surgery per cardiology 2. Lower gastrointestinal bleeding likely secondary to diverticulosis-stable 3. Hypothyroidism Continue Rx 4. Weakness and numbness of the left lower extremity-stable 5. Diabetes-currently stable Continue sliding-scale 6. Hypokalemia-replete Prophylaxis: SCDs Problems: Subjective 24 Hr Interval Summary Gastrointestinal: pain Exam/Review of Systems Vital Signs Vitals Vital Signs Date Time Temp Pulse Resp B/P Pulse Ox O2 Delivery O2 Flow Rate FiO2 10/11/16 07:22 99.3 68 20 128/59 91 10/09/16 18:42 Room Air Intake and Output 10/10/16 10/10/16 10/11/16 15:00 23:00 07:00 Intake Total 600 ml 1930 ml Balance 600 ml 1930 ml Exam Constitutional: alert Respiratory: clear to auscultation Cardiovascular: regular rate and rhythm Gastrointestinal: soft, No distended Musculoskeletal: nl extremities to inspection Results Result Diagram: 10/11/16 1135 10/11/16 0940 Results 24 hrs Laboratory Tests Test 10/10/16 16:39 10/10/16 20:43 10/11/16 01:23 10/11/16 04:57 Bedside Glucose 102 124 99 99 Test 10/11/16 07:42 10/11/16 09:40 10/11/16 11:31 10/11/16 11:35 Bedside Glucose 90 81 White Blood Count 7.5 7.1 Red Blood Count 3.97 #L 4.04 L Hemoglobin 10.2 #L 10.5 L Hematocrit 33.3 #L 33.9 L Mean Corpuscular Volume 83.9 83.9 Mean Corpuscular Hemoglobin 25.7 L 26.0 L Mean Corpuscular Hemoglobin Concent 30.6 L 31.0 L Red Cell Distribution Width 14.6 H 14.4 Platelet Count 362 398 Mean Platelet Volume 7.9 7.8 Neutrophils % 68.5 67.5 Lymphocytes % 18.9 20.8 Monocytes % 10.6 9.7 Eosinophils % 0.9 1.0 Basophils % 0.4 0.4 Nucleated Red Blood Cells % 0.0 0.0 Neutrophils # 5.1 4.8 Lymphocytes # 1.4 1.5 Monocytes # 0.8 0.7 Eosinophils # 0.1 0.1 Basophils # 0.0 0.0 Nucleated Red Blood Cells # 0.0 0.0 Sodium Level 136 Potassium Level 3.0 L Chloride Level 102 Carbon Dioxide Level 29 Anion Gap 8 Blood Urea Nitrogen 6 L Creatinine 0.39 L Glucose Level 88 Calcium Level 8.1 L Magnesium Level 1.5 L Medications Medications Current Medications Miscellaneous Information 1 ea NOTE XX ; Start 10/09/16 at 23:45 Glucose (Glutose) 15 gm Q15M PRN PO DECREASED GLUCOSE; Start 10/09/16 at 23:45 Glucose (Glutose) 22.5 gm Q15M PRN PO DECREASED GLUCOSE; Start 10/09/16 at 23:45 Dextrose (D50w Syringe) 25 ml Q15M PRN IV DECREASED GLUCOSE; Start 10/09/16 at 23:45 Dextrose (D50w Syringe) 50 ml Q15M PRN IV DECREASED GLUCOSE; Start 10/09/16 at 23:45 Glucagon (Glucagen) 1 mg Q15M PRN IM DECREASED GLUCOSE; Start 10/09/16 at 23:45 Glucose 15 gm 15 gm Q15M PRN BUCCAL DECREASED GLUCOSE; Start 10/09/16 at 23:45 Sodium Chloride (NS) 1,000 ml @ 100 mls/hr Q10H IV Last administered on 15:54; Admin Dose 100 MLS/HR; Start 10/09/16 at 23:36 Metoclopramide HCl (Reglan) 10 mg Q6H PRN IV NAUSEA AND/OR VOMITING; Start 04/18 at 00:00 Famotidine (Pepcid Iv) 20 mg DAILY IV Last administered on 10/11/16 07:53; Admin Dose 20 MG; Start 10/10/16 at 09:00 Morphine Sulfate 4 mg 4 mg Q3 PRN IV SEVERE PAIN LEVEL 7-10 Last administered on 10/11/16 15:54; Admin Dose 4 MG; Start 10/10/16 at 03:00 Piperacillin Sod/ Tazobactam Sod (Zosyn 3.375gm/ 100 ml (Pmx)) 100 ml @ 200 mls /hr Q6 IVPB Last administered on 10/11/16 11:30; Admin Dose 200 MLS/HR; Start 10/10/16 at 18:00 Acetaminophen/ Hydrocodone Bitart ([place] ()) 1 tab Q4H PRN PO PAIN Last administered on 10/11/16 06:18; Admin Dose 1 TAB; Start 10/11/16 at 06:00 Diphenhydramine HCl (Benadryl) 25 mg Q6H PRN IV ITCHING; Start 10/11/16 at 06: 00 Diagnostic Test (Pha) (Accu-Chek) 1 ea 02 XX ; Start 10/12/16 at 02:00 ARAMIS SY Oct 11, 2016 16:34
[2016-10-11] MEDS: POTASSIUM CHLORIDE (SR) 20 MEQ TAB PO SCH ×2 (16:52→20:09)
[2016-10-11] MEDS ORDERED: PEG/ELECTROLYTES 4L BTL PO ONE (17:30)
--- NOTE | 2016-10-11 17:45 | RADRPT ---
Echocardiogram Report Patient Name: ATILIO HARRELL Gender: Female Date: 1955 Study Date: 11-Oct-2016 Manager Application Development: Ximena Winters [facility] Location: [id number] Ref. Physician: EVELYN CRUZ Quality: Adequate Procedures: Transthoracic echocardiogram with complete 2D, M-Mode, and doppler examination. Indications: Evaluate atrial septum for shunting; hx of ASD closure. 2D/M Mode Doppler Measurement Value Normal Ranges Measurement Value Normal Ranges LVIDd 2D 5.4 3.5 - 5.6 cm AV Peak [place] 1.6 m/sec LVIDs 2D 3.4 2.1 - 4.1 cm AV Peak PG 10.7 mmHg LVPWd 2D 1.0 0.6 - 1.1 cm LVOT Peak [place] 1.2 m/sec IVSd 2D 1.1 0.6 - 1.1 cm LVOT Peak PG 5.4 mmHg AoR Diam 2D 3.0 2.0 - 3.7 cm MV E Peak [place] 1.1 m/sec EDV 2D 141.0 cm3 MV A Peak [place] 0.8 m/sec ESV 2D 38.1 cm3 MV E/A 1.3 LA Dimen 2D 4.2 2.3 - 4.0 cm MV Decel Time 257 msec MV Decel Weld 4 MV E/A 1.3 Findings Left Ventricle: Normal left ventricular systolic function. Normal left ventricular cavity size. Normal left ventricular wall thickness. Ejection fraction is visually estimated at 55 %. Tissue Doppler/Mitral Doppler indices are within normal limits. Resting Segmental Wall Motion Analysis: Abnormal septal motion consistent with prior cardiac surgery. Right Ventricle: Normal right ventricular size. Normal right ventricular systolic function. Left Atrium: The left atrium is normal in size. Right Atrium: The right atrium is normal in size. Atrial Septum: Thickened echogenic inter-atrial septum consistent with known ASD repair. Mitral Valve: Mild mitral annular calcification. Trace mitral regurgitation. Aortic Valve: Normal appearance of the aortic valve. No significant aortic stenosis or insufficiency. Tricuspid Valve: Unable to obtain RVSP due to minimal presence of tricuspid regurgitation. Pulmonic Valve: Normal pulmonic valve appearance. Pericardium: Normal pericardium with no significant pericardial effusion. Aorta: Normal aortic root. IVC: Normal size and normal respiratory collapse consistent with normal right atrial pressure. Conclusions 1.Normal left ventricular systolic function. Normal left ventricular cavity size. Normal left ventricular wall thickness. Ejection fraction is visually estimated at 55 %. Tissue Doppler/Mitral Doppler indices are within normal limits. Abnormal septal motion consistent with prior cardiac surgery. 2.No significant valvular stenosis or regurgitation seen. 3.Thickened echogenic inter-atrial septum consistent with known ASD repair. 4.Unable to obtain RVSP due to minimal presence of tricuspid regurgitation. RA pressure is 3 mmHg. Electronically Signed By: Evelyn Cruz 11-Oct-2016 17:44:20 -0700 Patient Name: ATILIO HARRELL Study Date: 11-Oct-2016 [id number]
--- NOTE | 2016-10-11 18:13 | PN ---
DATE: 10/11/2016 SUBJECTIVE: Complained of lower abdominal pain. No other complaint. OBJECTIVE: VITAL SIGNS: Temperature 99.3, 68, 20, blood pressure 128/59. Saturation 91%, room air. LABORATORY: Sodium 136. Potassium 3, has been replaced. BUN 6, creatinine 0.39, calcium 8.1. Magnesium 1.5, has been corrected. Cardiology has seen the patient and has cleared from cardiology point of view. Chest x-ray was reported as clear lungs. Abdomen is slightly distended. Tenderness, lower quadrant, especially in the left and right lower quadrants and suprapubic area. Bowel sounds are normal. ASSESSMENT AND PLAN: A 61-year-old female with a status of diverticulitis with presence of 2 abscesses in the pelvic cavity and possible colovesical fistula. Also she has had episodes of rectal bleeding, fresh. Hemoglobin was 8 yesterday on admission. Two units of packed cells were given, today is 10.5. Hematocrit is 33.9. A 61-year-old female with diverticulosis, diverticulitis, presence of abscess. Appears that lower abdominal pain has been going on since July. Several episodes of rectal bleeding as well, possible presence of colovesical fistula and anemia. The patient is a candidate for exploratory laparotomy, drainage of the abscesses and placement of diverting end colostomy to assist and help closure of the fistula and later on possibly resection of the perforated segment of the sigmoid colon and the anastomosis of the colon. Plan is to do the procedure on , the day after tomorrow hopefully, if we can get a spot in the operating room. Meanwhile, the patient is going to be started on bowel prep as of tonight and continue to monitor electrolytes and hemoglobin. Dictated By: TICO PUCKETT MD PS/ELINA Conf#: [id number] DID#: [id number] MTDOlivia
--- NOTE | 2016-10-11 18:29 | RADRPT ---
Vent Rate: 69 bpm RR Interval: 0 msec MD Interval: 154 msec QRS Duration: 108 msec QT Interval: 406 msec QTC Interval: 435 msec P-R-T [place]: 0 - -43 - 124 degrees Normal sinus rhythm Left axis deviation Inferior infarct , age undetermined Possible Anterior infarct , age undetermined Abnormal ECG Electronically Signed By: Chin Thayer [id number]
[2016-10-11 20:00] VITALS: BP 124/65; RESP 18
[2016-10-12] MEDS: PIPER-TAZO 3.375 GM IV (PMX) 100 ML IVPB SCH ×4 (00:35→19:05)
[2016-10-12] MEDS: SOD CHLORIDE 0.9% 1,000 ML IV SCH ×2 (01:36→11:36)
[2016-10-12] MEDS: morphine 2 MG INJ IV PRN ×5 (01:40→21:51)
[2016-10-12] MEDS: ACCUCHECK AT 2AM (Patients on SS coverage) XX SCH (02:00)
[2016-10-12] MEDS: HYDROCODONE/APAP (10/325) TAB PO PRN ×3 (04:30→13:23)
[2016-10-12 05:50] LABS: ADD SCAN DIFF NO
[2016-10-12 05:51] LABS: BASOPHILS % 0.6 % (0.0-2.0); EOSINOPHILS # 0.1 10^3/ul (0.0-0.5); EOSINOPHILS % 0.8 % (0.0-7.0); HEMATOCRIT 35.8 % (37.0-47.0); HEMOGLOBIN 11.3 g/dl (12.0-16.0); LYMPHOCYTES # 1.3 10^3/ul (0.8-2.9); LYMPHOCYTES % 18.8 % (15.0-51.0); MEAN CORPUSCULAR HEMOGLOBIN 26.5 pg (29.0-33.0); MEAN CORPUSCULAR HGB CONC 31.6 g/dl (32.0-37.0); MEAN PLATELET VOLUME 7.7 fl (7.4-10.4); MONOCYTE # 0.8 10^3/ul (0.3-0.9); NEUTROPHIL # 4.8 10^3/ul (1.6-7.5); NEUTROPHILS % 68.1 % (39.0-77.0); PLATELET COUNT 422 10^3/UL (140-415); RED BLOOD COUNT 4.26 10^6/ul (4.20-5.40); RED CELL DISTRIBUTION WIDTH 14.6 % (11.5-14.5); WHITE BLOOD COUNT 7.1 10^3/ul (4.8-10.8)
[2016-10-12] MEDS: LEVOTHYROXINE 150 MCG TAB PO SCH (05:59)
[2016-10-12 06:07] LABS: CALCIUM 8.5 mg/dl (8.4-10.2); CREATININE 0.4 mg/dl (0.44-1.00); MAGNESIUM 2.2 mg/dl (1.7-2.5); PHOSPHORUS 2.9 mg/dl (2.5-4.9); POTASSIUM 3.8 mmol/L (3.5-5.1)
[2016-10-12] MEDS: Insulin NOVOLOG SS MILD Algorithm (SS with meals and bedtime) SC SCH ×4 (08:00→21:00)
[2016-10-12] MEDS: FAMOTIDINE 20 MG INJ IV SCH ×2 (09:00→10:50)
[2016-10-12 09:02] VITALS: BP 125/61; RESP 20
--- NOTE | 2016-10-12 13:26 | PN ---
Date/Time of Note Date/Time of Note DATE: 10/12/16 TIME: 13:25 Assessment/Plan VTE Prophylaxis VTE Prophylaxis Intervention: SCD's Lines/Catheters IV Catheter Type (from Nrsg): Peripheral IV Assessment/Plan Chief Complaint/Hosp Course 1. Likely colovesical fistula with diverticulosis and diverticulitis and abscesses Plan for surgery this Continue [facility] consulted Cards consult for preop clearance appreciated, patient cleared for surgery per cardiology 2. Lower gastrointestinal bleeding likely secondary to diverticulosis-stable 3. Hypothyroidism Continue Rx 4. Weakness and numbness of the left lower extremity-stable 5. Diabetes-currently stable Continue sliding-scale 6. Hypokalemia-replete Prophylaxis: SCDs Problems: Subjective 24 Hr Interval Summary Gastrointestinal: pain Exam/Review of Systems Vital Signs Vitals Vital Signs Date Time Temp Pulse Resp B/P Pulse Ox O2 Delivery O2 Flow Rate FiO2 10/12/16 09:02 97.9 71 20 125/61 94 10/09/16 18:42 Room Air Intake and Output 10/11/16 10/11/16 10/12/16 15:00 23:00 07:00 Intake Total 100 ml 1680 ml 1802 ml Balance 100 ml 1680 ml 1802 ml Exam Constitutional: alert Respiratory: clear to auscultation Cardiovascular: regular rate and rhythm Gastrointestinal: soft, No distended Musculoskeletal: nl extremities to inspection Results Result Diagram: 10/12/16 0520 10/12/16 0520 Results 24 hrs Laboratory Tests Test 10/11/16 16:54 10/11/16 20:22 10/12/16 05:20 10/12/16 07:56 Bedside Glucose 94 81 108 White Blood Count 7.1 Red Blood Count 4.26 Hemoglobin 11.3 L Hematocrit 35.8 L Mean Corpuscular Volume 84.0 Mean Corpuscular Hemoglobin 26.5 L Mean Corpuscular Hemoglobin Concent 31.6 L Red Cell Distribution Width 14.6 H Platelet Count 422 H Mean Platelet Volume 7.7 Neutrophils % 68.1 Lymphocytes % 18.8 Monocytes % 11.0 Eosinophils % 0.8 Basophils % 0.6 Nucleated Red Blood Cells % 0.0 Neutrophils # 4.8 Lymphocytes # 1.3 Monocytes # 0.8 Eosinophils # 0.1 Basophils # 0.0 Nucleated Red Blood Cells # 0.0 Sodium Level 138 Potassium Level 3.8 Chloride Level 103 Carbon Dioxide Level 30 Anion Gap 9 Blood Urea Nitrogen 5 L Creatinine 0.40 L Glucose Level 123 Calcium Level 8.5 Phosphorus Level 2.9 Magnesium Level 2.2 Test 10/12/16 11:57 Bedside Glucose 110 Medications Medications Current Medications Miscellaneous Information 1 ea NOTE XX ; Start 10/09/16 at 23:45 Glucose (Glutose) 15 gm Q15M PRN PO DECREASED GLUCOSE; Start 10/09/16 at 23:45 Glucose (Glutose) 22.5 gm Q15M PRN PO DECREASED GLUCOSE; Start 10/09/16 at 23:45 Dextrose (D50w Syringe) 25 ml Q15M PRN IV DECREASED GLUCOSE; Start 10/09/16 at 23:45 Dextrose (D50w Syringe) 50 ml Q15M PRN IV DECREASED GLUCOSE; Start 10/09/16 at 23:45 Glucagon (Glucagen) 1 mg Q15M PRN IM DECREASED GLUCOSE; Start 10/09/16 at 23:45 Glucose 15 gm 15 gm Q15M PRN BUCCAL DECREASED GLUCOSE; Start 10/09/16 at 23:45 Sodium Chloride (NS) 1,000 ml @ 100 mls/hr Q10H IV Last administered on 15:54; Admin Dose 100 MLS/HR; Start 10/09/16 at 23:36 Metoclopramide HCl (Reglan) 10 mg Q6H PRN IV NAUSEA AND/OR VOMITING; Start 04/18 at 00:00 Famotidine (Pepcid Iv) 20 mg DAILY IV Last administered on 10/12/16 10:50; Admin Dose 20 MG; Start 10/10/16 at 09:00 Morphine Sulfate 4 mg 4 mg Q3 PRN IV SEVERE PAIN LEVEL 7-10 Last administered on 10/12/16 10:48; Admin Dose 4 MG; Start 10/10/16 at 03:00 Piperacillin Sod/ Tazobactam Sod (Zosyn 3.375gm/ 100 ml (Pmx)) 100 ml @ 200 mls /hr Q6 IVPB Last administered on 10/12/16 13:20; Admin Dose 200 MLS/HR; Start 10/10/16 at 18:00 Acetaminophen/ Hydrocodone Bitart ([place] (10/325)) 1 tab Q4H PRN PO PAIN Last administered on 10/12/16 13:23; Admin Dose 1 TAB; Start 10/11/16 at 06:00 Diphenhydramine HCl (Benadryl) 25 mg Q6H PRN IV ITCHING; Start 10/11/16 at 06: 00 Diagnostic Test (Pha) (Accu-Chek) 1 02 XX ; Start 10/12/16 at 02:00 ARAMIS SY Oct 12, 2016 13:26
[2016-10-12] MEDS: 1/2 NS + KCL 20 MEQ 1,000 ML IV SCH ×2 (14:00→16:08)
--- NOTE | 2016-10-12 14:18 | PN ---
DATE: 10/12/2016 The patient has been admitted because of the diverticular abscesses and lower GI bleeding SUBJECTIVE: No complaint. She states that she has been having many, many bowel movements and now w hatever she is passing per rectum or vagina is clear. The patient has been getting a bowel prep sin ce last night. OBJECTIVE: VITAL SIGNS: Temperature 97.9, pulse 71, respirations 20, blood pressure 125/61, saturation 94% on room air. ABDOMEN: Soft. LABORATORY DATA: Labs today within normal limits. Hemoglobin 11.3, hematocrit 34.5, WBC 7100 with 68% neutrophils. ASSESSMENT: The patient with diverticular disease with diverticulitis, 2 abscesses and recently has passed also some fresh blood per rectum, also has been passing stool per vagina, so assumption is p resence of a rectal or colovaginal fistula. PLAN: Considering the presence of 2 abscesses, which was proved on CT scan done on 10/07/2016 in [facility], and fistula, the patient will be scheduled for exploratory laparotomy, drainage o f abscesses and diverting end colostomy to give time for clearance of the inflammation and also clos ure of possible fistula. She may require second stage other operation in the future. We have discu ssed with the patient, the patient agrees. The patient has received a bowel prep already and is andrey dy for operation tomorrow, in the afternoon. Dictated By: TICO PUCKETT MD PS/NTS Conf#: [id number] DID#: [id number]
--- NOTE | 2016-10-12 14:26 | CONS ---
Date/Time of Note Date/Time of Note DATE: 10/12/16 TIME: 14:05 Assessment/Plan Assessment/Plan Additional Assessment/Plan Assessment * Sigmoid diverticulitis with abscess * Colovesical fistula * Hyperlipidemia * Major depression * Diabetes mellitus * Plan * continue present management * scheduled for surgery 10/13/2016 Consultation Date/Type/Reason Admit Date/Time Oct 09, 2016 at 17:35 Type of Consultation: Gastroenterology Reason for Consultation Diverticulitis with abscess Referring Provider: ARAMIS SY of Present Illness 61 y/o female who was referred for evaluation of diverticulitis with abscess Past medical history includes diabetes mellitus,colovesical fistula, hyperlipidemia,depression..Patient was previously seen at [facility] and evaluated where a CT scan revealed 1sigmoid diverticulitis with associated complex abscesses.,2 no renal or ureteral calculi 3 no bowel obstruction ,pneumoperitoneum 4 Gallbladder removed,5 Hiatal hernia with proximal stomach in chest .She was diagnosed to Have Diverticular abscess, diverticulosis,hyperlipidemia ,major depression ,diabetes mellitus.She was subsequently transferred to our institution.He was evaluated with surgeon who scheduled her for surgery tomorrow.Presently,patient denies any bleeding but with minimal abdominal pain ,afebrile,no nausea or vomiting Constitutional: improved Eyes: no complaints ENT: no complaints Respiratory: no complaints Cardiovascular: no complaints Gastrointestinal: decreased appetite, flatus, pain, passing stool, No nausea, No vomiting Genitourinary: no complaints Musculoskeletal: no complaints Skin: no complaints Neurologic: no complaints Endocrine: no complaints Lymphatic: no complaints Psychological: no complaints Immunologic: no complaints Past Medical History Medical History: diabetes, diverticulitis, hyperthyroid Social History Alcohol Use: none Smoking Status: Former smoker Exam/Review of Systems Vital Signs Vitals Vital Signs Date Time Temp Pulse Resp B/P Pulse Ox O2 Delivery O2 Flow Rate FiO2 10/12/16 09:02 97.9 71 20 125/61 94 10/09/16 18:42 Room Air Intake and Output 10/11/16 10/11/16 10/12/16 15:00 23:00 07:00 Intake Total 100 ml 1680 ml 1802 ml Balance 100 ml 1680 ml 1802 ml Exam Constitutional: alert, oriented, well developed Psych: nl mood/affect, no complaints Head: atraumatic, normocephalic Eyes: PERRL, nl conjunctiva, nl sclera ENMT: nl external ears & nose Neck: non-tender, supple Respiratory: clear to auscultation, normal air movement Cardiovascular: nl pulses, regular rate and rhythm Gastrointestinal: bowel sounds, distended, nl liver, spleen, non-tender, soft, No rebound or guarding, No tender Musculoskeletal: nl extremities to inspection, nl gait and stance Extremities: normal pulses Neurological: [employer] II-XII intact, nl mental status, nl speech, nl strength Skin: nl turgor, No rash or lesions Lymph: nl lymph nodes Results Result Diagram: 10/12/1651910/12/16519 Results 24 hrs Laboratory Tests Test 10/11/16 16:54 10/11/16 20:22 10/12/16 05:20 10/12/16 07:56 Bedside Glucose 94 81 108 White Blood Count 7.1 Red Blood Count 4.26 Hemoglobin 11.3 L Hematocrit 35.8 L Mean Corpuscular Volume 84.0 Mean Corpuscular Hemoglobin 26.5 L Mean Corpuscular Hemoglobin Concent 31.6 L Red Cell Distribution Width 14.6 H Platelet Count 422 H Mean Platelet Volume 7.7 Neutrophils % 68.1 Lymphocytes % 18.8 Monocytes % 11.0 Eosinophils % 0.8 Basophils % 0.6 Nucleated Red Blood Cells % 0.0 Neutrophils # 4.8 Lymphocytes # 1.3 Monocytes # 0.8 Eosinophils # 0.1 Basophils # 0.0 Nucleated Red Blood Cells # 0.0 Sodium Level 138 Potassium Level 3.8 Chloride Level 103 Carbon Dioxide Level 30 Anion Gap 9 Blood Urea Nitrogen 5 L Creatinine 0.40 L Glucose Level 123 Calcium Level 8.5 Phosphorus Level 2.9 Magnesium Level 2.2 Test 10/12/16 11:57 Bedside Glucose 110 Medications Medications Current Medications Miscellaneous Information 1 ea NOTE XX ; Start 10/09/16 at 23:45 Glucose (Glutose) 15 gm Q15M PRN PO DECREASED GLUCOSE; Start 10/09/16 at 23:45 Glucose (Glutose) 22.5 gm Q15M PRN PO DECREASED GLUCOSE; Start 10/09/16 at 23:45 Dextrose (D50w Syringe) 25 ml Q15M PRN IV DECREASED GLUCOSE; Start 10/09/16 at 23:45 Dextrose (D50w Syringe) 50 ml Q15M PRN IV DECREASED GLUCOSE; Start 10/09/16 at 23:45 Glucagon (Glucagen) 1 mg Q15M PRN IM DECREASED GLUCOSE; Start 10/09/16 at 23:45 Glucose (Glutose) 15 gm Q15M PRN BUCCAL DECREASED GLUCOSE; Start 10/09/16 at 23: 45 Metoclopramide HCl (Reglan) 10 mg Q6H PRN IV NAUSEA AND/OR VOMITING; Start 04/18 at 00:00 Famotidine (Pepcid Iv) 20 mg DAILY IV Last administered on 10/12/16 10:50; Admin Dose 20 MG; Start 10/10/16 at 09:00 Morphine Sulfate 4 mg 4 mg Q3 PRN IV SEVERE PAIN LEVEL 7-10 Last administered on 10/12/16 10:48; Admin Dose 4 MG; Start 10/10/16 at 03:00 Piperacillin Sod/ Tazobactam Sod (Zosyn 3.375gm/ 100 ml (Pmx)) 100 ml @ 200 mls /hr Q6 IVPB Last administered on 10/12/16 13:20; Admin Dose 200 MLS/HR; Start 10/10/16 at 18:00 Acetaminophen/ Hydrocodone Bitart ([place] (10/325)) 1 tab Q4H PRN PO PAIN Last administered on 10/12/16 13:23; Admin Dose 1 TAB; Start 10/11/16 at 06:00 Diphenhydramine HCl (Benadryl) 25 mg Q6H PRN IV ITCHING; Start 10/11/16 at 06: 00 Diagnostic Test (Pha) 1 ea 1 ea 02 XX ; Start 10/12/16 at 02:00 Potassium Chloride/Sodium Chloride (1/2 NS + KCl 20 Meq) 1,000 ml @ 80 mls/hr [id number] IV ; Start 10/12/16 at 14:00 BARBARA WHALEN MD Oct 12, 2016 14:18
[2016-10-12 19:27] VITALS: BP 143/65; RESP 18
[2016-10-13] VITALS (18 sets, daily range): BP systolic 102–169; BP diastolic 42–78; PULSE 67–92; RESP 14–24
[2016-10-13] MEDS: morphine 2 MG INJ IV PRN ×4 (01:04→13:36)
[2016-10-13] MEDS: PIPER-TAZO 3.375 GM IV (PMX) 100 ML IVPB SCH ×4 (01:04→18:00)
[2016-10-13] MEDS: ACCUCHECK AT 2AM (Patients on SS coverage) XX SCH (02:00)
[2016-10-13] MEDS: 1/2 NS + KCL 20 MEQ 1,000 ML IV SCH ×2 (02:29→15:00)
[2016-10-13 05:28] LABS: ADD SCAN DIFF NO
[2016-10-13 05:34] LABS: BASOPHILS % 0.7 % (0.0-2.0); EOSINOPHILS # 0.1 10^3/ul (0.0-0.5); EOSINOPHILS % 2.2 % (0.0-7.0); HEMATOCRIT 35.7 % (37.0-47.0); HEMOGLOBIN 10.7 g/dl (12.0-16.0); LYMPHOCYTES # 1.5 10^3/ul (0.8-2.9); LYMPHOCYTES % 27.5 % (15.0-51.0); MEAN CORPUSCULAR HEMOGLOBIN 25.5 pg (29.0-33.0); MEAN CORPUSCULAR VOLUME 85.2 fl (82.0-101.0); MEAN PLATELET VOLUME 7.8 fl (7.4-10.4); MONOCYTE # 0.5 10^3/ul (0.3-0.9); MONOCYTES % 9.2 % (0.0-11.0); NEUTROPHIL # 3.2 10^3/ul (1.6-7.5); NEUTROPHILS % 59.8 % (39.0-77.0); PLATELET COUNT 410 10^3/UL (140-415); RED BLOOD COUNT 4.19 10^6/ul (4.20-5.40); RED CELL DISTRIBUTION WIDTH 15.2 % (11.5-14.5); WHITE BLOOD COUNT 5.4 10^3/ul (4.8-10.8)
[2016-10-13 05:53] LABS: ANION GAP 10 (8-16); CALCIUM 8.4 mg/dl (8.4-10.2); CARBON DIOXIDE 27 mmol/L (21-31); CHLORIDE 105 mmol/L (97-110); CREATININE 0.37 mg/dl (0.44-1.00); GLUCOSE 83 mg/dl (70-220); POTASSIUM 3.6 mmol/L (3.5-5.1); SODIUM 138 mmol/L (135-144)
[2016-10-13 05:55] LABS: BLOOD UREA NITROGEN < 2 mg/dl (7-20)
[2016-10-13] MEDS: LEVOTHYROXINE 150 MCG TAB PO SCH (06:05)
[2016-10-13] MEDS ORDERED: metroNIDAZOLE 500 MG/100 ML NS IVPB ONE (07:00)
[2016-10-13] MEDS ORDERED: CIPRO 400 MG/200 ML D5W IVPB ONE (07:00)
[2016-10-13] MEDS ORDERED: DESFLURANE 15 MIN ONE (07:00)
[2016-10-13] MEDS: Insulin NOVOLOG SS MILD Algorithm (SS with meals and bedtime) SC SCH ×4 (08:00→21:00)
[2016-10-13] MEDS: FAMOTIDINE 20 MG INJ IV SCH (08:34)
[2016-10-13] MEDS ORDERED: VITAMIN A & D 5 GM OINT PACKET TOP ONE (09:39)
[2016-10-13] MEDS ORDERED: METOCLOPRAMIDE 10 MG INJ ONE (16:21)
[2016-10-13] MEDS ORDERED: HYDROmorphONE 2 MG/ML SYG ONE (16:21)
[2016-10-13] MEDS ORDERED: ROCURONIUM 50 MG INJ ONE ×2 (16:21→17:54)
[2016-10-13] MEDS ORDERED: MIDAZOLAM 1 MG/ML 2 ML INJ ONE (16:21)
[2016-10-13] MEDS ORDERED: PROPOFOL 20 ML ONE (16:21)
[2016-10-13] MEDS ORDERED: EPHEDrine SULFATE 50 MG/5 ML SYG ONE (17:58)
[2016-10-13] MEDS ORDERED: PHENYLephrine (100 MCG/ML) 5ML SYG ONE (17:58)
--- NOTE | 2016-10-13 18:03 | PN ---
Date/Time of Note Date/Time of Note DATE: 10/13/16 TIME: 18:02 Assessment/Plan VTE Prophylaxis VTE Prophylaxis Intervention: SCD's Lines/Catheters IV Catheter Type (from [facility]): Peripheral IV Urinary Cath still in place: No Assessment/Plan Chief Complaint/Hosp Course 1. Likely colovesical fistula with diverticulosis and diverticulitis and abscesses Plan for surgery today Continue Zosyn GI consult appreciated Cards consult for preop clearance appreciated, patient cleared for surgery per cardiology 2. Lower gastrointestinal bleeding likely secondary to diverticulosis-stable 3. Hypothyroidism Continue Rx 4. Weakness and numbness of the left lower extremity-stable 5. Diabetes-currently stable Continue sliding-scale 6. Hypokalemia-replete Prophylaxis: SCDs Problems: Subjective 24 Hr Interval Summary Constitutional: no complaints Exam/Review of Systems Vital Signs Vitals Vital Signs Date Time Temp Pulse Resp B/P Pulse Ox O2 Delivery O2 Flow Rate FiO2 10/13/16 07:48 98.5 64 18 123/61 94 10/13/16 07:36 Room Air Intake and Output 10/12/16 10/12/16 10/13/16 15:00 23:00 07:00 Intake Total 600 ml 520 ml 900 ml Balance 600 ml 520 ml 900 ml Exam Constitutional: alert, oriented Respiratory: clear to auscultation Cardiovascular: regular rate and rhythm Gastrointestinal: soft, No distended Musculoskeletal: nl extremities to inspection Results Result Diagram: 10/13/16 0505 10/13/16 0505 Results 24 hrs Laboratory Tests Test 10/12/16 21:45 10/13/16 04:33 10/13/16 05:05 10/13/16 08:06 Bedside Glucose 78 83 81 White Blood Count 5.4 # Red Blood Count 4.19 L Hemoglobin 10.7 L Hematocrit 35.7 L Mean Corpuscular Volume 85.2 Mean Corpuscular Hemoglobin 25.5 L Mean Corpuscular Hemoglobin Concent 30.0 L Red Cell Distribution Width 15.2 H Platelet Count 410 Mean Platelet Volume 7.8 Neutrophils % 59.8 Lymphocytes % 27.5 Monocytes % 9.2 Eosinophils % 2.2 Basophils % 0.7 Nucleated Red Blood Cells % 0.0 Neutrophils # 3.2 Lymphocytes # 1.5 Monocytes # 0.5 Eosinophils # 0.1 Basophils # 0.0 Nucleated Red Blood Cells # 0.0 Sodium Level 138 Potassium Level 3.6 Chloride Level 105 Carbon Dioxide Level 27 Anion Gap 10 Blood Urea Nitrogen < 2 L Creatinine 0.37 L Glucose Level 83 # Calcium Level 8.4 Test 10/13/16 12:12 Bedside Glucose 86 Medications Medications Current Medications Miscellaneous Information 1 ea NOTE XX ; Start 10/09/16 at 23:45 Glucose (Glutose) 15 gm Q15M PRN PO DECREASED GLUCOSE; Start 10/09/16 at 23:45 Glucose (Glutose) 22.5 gm Q15M PRN PO DECREASED GLUCOSE; Start 10/09/16 at 23:45 Dextrose (D50w Syringe) 25 ml Q15M PRN IV DECREASED GLUCOSE; Start 10/09/16 at 23:45 Dextrose (D50w Syringe) 50 ml Q15M PRN IV DECREASED GLUCOSE; Start 10/09/16 at 23:45 Glucagon (Glucagen) 1 mg Q15M PRN IM DECREASED GLUCOSE; Start 10/09/16 at 23:45 Glucose (Glutose) 15 gm Q15M PRN BUCCAL DECREASED GLUCOSE; Start 10/09/16 at 23: 45 Metoclopramide HCl (Reglan) 10 mg Q6H PRN IV NAUSEA AND/OR VOMITING; Start 04/18 at 00:00 Famotidine (Pepcid Iv) 20 mg DAILY IV Last administered on 10/13/16 08:34; Admin Dose 20 MG; Start 10/10/16 at 09:00 Morphine Sulfate 4 mg 4 mg Q3 PRN IV SEVERE PAIN LEVEL 7-10 Last administered on 10/13/16 13:36; Admin Dose 4 MG; Start 10/10/16 at 03:00 Piperacillin Sod/ Tazobactam Sod (Zosyn 3.375gm/ 100 ml (Pmx)) 100 ml @ 200 mls /hr Q6 IVPB Last administered on 10/13/16 13:35; Admin Dose 200 MLS/HR; Start 10/10/16 at 18:00 Acetaminophen/ Hydrocodone Bitart ([place] (10)) 1 tab Q4H PRN PO PAIN Last administered on 10/12/16 13:23; Admin Dose 1 TAB; Start 10/11/16 at 06:00 Diphenhydramine HCl (Benadryl) 25 mg Q6H PRN IV ITCHING; Start 4/11/17 at 06: 00 Diagnostic Test (Pha) 1 ea 1 ea 02 XX ; Start 10/12/16 at 02:00 Potassium Chloride/Sodium Chloride (1/2 NS + KCl 20 Meq) 1,000 ml @ 80 mls/hr [id number] IV Last administered on 10/13/16t 02:29; Admin Dose 80 MLS/HR; Start at 14:00 ARAMIS SY Oct 13, 2016 18:03
[2016-10-13] MEDS ORDERED: ROPIVACAINE 0.5 % 30 ML VIAL ONE (18:20)
[2016-10-13] MEDS ORDERED: ONDANSETRON 4 MG INJ IV PRN (18:30)
[2016-10-13] MEDS ORDERED: HYDROmorphONE (0.2 MG/ML) 10ML SYG IV PRN (18:30)
[2016-10-13] MEDS ORDERED: DIPHENHYDRAMINE 50 MG INJ IV PRN (18:30)
[2016-10-13] MEDS ORDERED: EPHEDrine SULFATE 50 MG/5 ML SYG IV PRN (18:30)
[2016-10-13] MEDS ORDERED: METOCLOPRAMIDE 10 MG INJ IV PRN (18:30)
[2016-10-13] MEDS ORDERED: MEPERIDINE 25 MG INJ IV PRN (18:30)
[2016-10-13] MEDS ORDERED: NEOSTIGMINE 3 MG/3 ML SYRINGE ONE (18:34)
[2016-10-13] MEDS ORDERED: GLYCOPYRROLATE 0.4 MG INJ ONE (18:34)
[2016-10-13] MEDS ORDERED: ACETAMINOPHEN 1000MG/100ML IV 100 ML IVPB PRN (19:00)
--- NOTE | 2016-10-13 19:14 | OPR ---
DATE OF OPERATION: 10/13/2016 PREOPERATIVE DIAGNOSIS: History of diverticular abscess and rectovaginal fistula. POSTOPERATIVE DIAGNOSIS: History of diverticular abscess and rectovaginal fistula. OPERATION PERFORMED: Exploratory laparotomy, I and D of pelvic abscess and diverting colostomy. ANESTHESIA: General. ANESTHESIOLOGIST: Milena Marcus MD SURGEON: Chet Jiménez MD BUDGET EXAMINER: Valentin Ballesteros MD INDICATIONS FOR PROCEDURE: The patient is a 61-year-old female who states that approximately 1 year ago she experienced severe left lower quadrant abdominal pain, was seen at an outside hospital and told she had a diverticular abscess. She was treated with antibiotics. Since that time, she had mu ltiple previous episodes of abdominal pain. Most recently, she was admitted to [facility], and a CAT scan revealed evidence of pelvic abscess, and she previously had a barium enema which dem onstrated a rectovaginal fistula. She was transferred to [facility], where Dr. Sa miramontes and Dr. Jiménez took over her care. She was counseled as to need for surgery and probable divert ing colostomy. She consented and was scheduled for surgery. DESCRIPTION OF PROCEDURE: The patient was brought to the operating theater, placed under general en dotracheal tube anesthesia. The abdomen was prepped and draped in the usual sterile fashion. A mid line incision was made from a point approximately 3 cm above the midline, around the umbilicus down to the symphysis pubis. Subcutaneous tissue was dissected with cautery. The abdomen was entered by incising the linea alba. Significant adhesions to abdominal wall were meticulously taken down with a combination of sharp dissection and cautery. The Bookwalter retractor was placed, and excellent exposure was obtained. The left colon was then mobilized. A large amount of inflammation over darryl ral centimeters of the bowel was noted, making complete mobilization very difficult. At this point Dr. Jiménez inspected the pelvis, and there was a densely adherent, inflamed proximal rectum to the pe ritoneum overlying the pelvis and the bladder. At this point Dr. Jiménez made decision that if possib le we would try to drain the abscess. The abscess cavities were eventually identified and opened an d irrigated. At this point Dr. Jiménez made decision the best treatment for her at this time would be to give her a diverting colostomy. Therefore, a suitable point of the distal transverse colon was identified, and a suitable location for the ostomy in the left side of the abdomen was identified. An elliptical incision was made, and the skin and subcutaneous fat were resected with cautery. The anterior rectus sheath was scored in cruciate fashion, as was the posterior sheath and peritoneum. Two fingers easily fit through the ostomy site. A loop of the distal transverse colon was then brou ght through the ostomy site and sutured with a 2-0 Prolene suture to the abdominal wall fascia. At this point the Bookwalter retractor was removed. Lap, sponge and instrument counts were correct. T he abdomen was then closed with #1 looped PDS sutures in running fashion. Subcutaneous tissue was i rrigated with Betadine, and skin incision was re-approximated with skin fernando. An island dressing was then applied. After applying the dressing, the colostomy was matured by incising the loop of b owel that had been brought through the left abdominal wall, and the colostomy was then matured with multiple 4-0 Vicryl sutures in interrupted fashion, and a colostomy appliance bag was applied. The patient tolerated procedure well. The estimated blood loss was 100 mL. There were no complications , and the patient was transported in stable condition to the recovery room. Dictated By: CHET JESUS/ELINA Conf#: [id number] DID#: [id number]
[2016-10-13] MEDS: HYDROmorphONE (0.2 MG/ML) 10ML SYG IV PRN ×4 (19:51→20:20)
[2016-10-13] MEDS: morphine 1 MG/ML 30 ML (PCA) IV SCH (19:53)
--- NOTE | 2016-10-13 20:58 | RADRPT ---
PROCEDURE: XR Chest. CLINICAL INDICATION: Central line placement. TECHNIQUE: Portable AP semi - supine view of the chest was obtained. COMPARISON: 10/10/2016 FINDINGS: Distal tip of the new right internal jugular central venous access catheter projects at the level of the cavoatrial junction. There is no evidence of pneumothorax. A new nasogastric/orogastric tube is below the diaphragm and inferior margin of the exposure within the region of the stomach. The ca rdiomediastinal silhouette is moderately enlarged, unchanged. Left lower lobe subsegmental atelecta sis and possible small left pleural effusion are not significantly changed, there is no pulmonary va scular congestion. The right lung appears clear. The osseous structures are intact with no evidenc e for acute abnormality. RPTAT:HJJR IMPRESSION: 1. New right internal jugular central venous access catheter tip projecting at the cavoatrial junct ion without evidence of pneumothorax. 2. Distal tip of the new nasogastric/orogastric tube is in the region of the stomach. 3. Left lower lobe atelectasis and possibly left pleural effusion not significantly change compared to 10/10/2016 allowing for technical differences. Physician Pretty Date Time Electronically viewed and signed by Physician Pretty on 10/13/2016 20:58 /
[2016-10-13] MEDS: D5W-0.45 NACL + KCL 20 MEQ 1,000 ML IV SCH (21:35)
[2016-10-14] VITALS (9 sets, daily range): BP systolic 114–175; BP diastolic 53–77; PULSE 83–91; RESP 18–24
[2016-10-14] MEDS: PIPER-TAZO 3.375 GM IV (PMX) 100 ML IVPB SCH ×4 (00:11→18:07)
[2016-10-14] MEDS: ACCUCHECK AT 2AM (Patients on SS coverage) XX SCH (02:00)
[2016-10-14] MEDS: D5W-0.45 NACL + KCL 20 MEQ 1,000 ML IV SCH ×4 (02:58→20:03)
[2016-10-14] MEDS: morphine 1 MG/ML 30 ML (PCA) IV SCH ×4 (05:33→20:05)
[2016-10-14 06:15] LABS: ADD SCAN DIFF NO
[2016-10-14 06:36] LABS: BASOPHILS % 0.2 % (0.0-2.0); EOSINOPHILS % 0.4 % (0.0-7.0); HEMATOCRIT 37.3 % (37.0-47.0); HEMOGLOBIN 11.1 g/dl (12.0-16.0); LYMPHOCYTES # 1.2 10^3/ul (0.8-2.9); LYMPHOCYTES % 11.9 % (15.0-51.0); MEAN CORPUSCULAR HEMOGLOBIN 25.4 pg (29.0-33.0); MEAN CORPUSCULAR HGB CONC 29.8 g/dl (32.0-37.0); MEAN CORPUSCULAR VOLUME 85.4 fl (82.0-101.0); MEAN PLATELET VOLUME 7.8 fl (7.4-10.4); MONOCYTE # 0.6 10^3/ul (0.3-0.9); MONOCYTES % 6.5 % (0.0-11.0); NEUTROPHILS % 80.5 % (39.0-77.0); PLATELET COUNT 454 10^3/UL (140-415); RED BLOOD COUNT 4.37 10^6/ul (4.20-5.40); RED CELL DISTRIBUTION WIDTH 15.5 % (11.5-14.5); WHITE BLOOD COUNT 9.9 10^3/ul (4.8-10.8)
[2016-10-14 06:41] LABS: ANION GAP 10 (8-16); CALCIUM 8.3 mg/dl (8.4-10.2); CARBON DIOXIDE 28 mmol/L (21-31); CHLORIDE 98 mmol/L (97-110); CREATININE 0.37 mg/dl (0.44-1.00); GLUCOSE 214 mg/dl (70-220); MAGNESIUM 1.2 mg/dl (1.7-2.5); PHOSPHORUS 3.7 mg/dl (2.5-4.9); POTASSIUM 3.4 mmol/L (3.5-5.1); SODIUM 133 mmol/L (135-144)
[2016-10-14] MEDS: LEVOTHYROXINE 150 MCG TAB PO SCH (06:56)
[2016-10-14 07:02] LABS: BLOOD UREA NITROGEN < 2 mg/dl (7-20)
[2016-10-14] MEDS: FAMOTIDINE 20 MG INJ IV SCH (08:22)
[2016-10-14] MEDS: Insulin NOVOLOG SS MILD Algorithm (SS with meals and bedtime) SC SCH ×3 (08:38→17:58)
--- NOTE | 2016-10-14 09:35 | CONS ---
Date/Time of Note Date/Time of Note DATE: 10/14/16 TIME: 09:30 Assessment/Plan Assessment/Plan Additional Assessment/Plan Assessment * Sigmoid diverticulitis with abscess * Colovesical fistula, s/p colostomy * Hyperlipidemia * Major depression * Diabetes mellitus * Plan * continue present management * Further recommendations depend on clinical course * Patient seen in collaboration with Dr. Carson Consultation Date/Type/Reason Admit Date/Time Oct 09, 2016 at 17:35 Initial Consult Date 10/11/16 Type of Consultation: Gastroenterology Referring Provider: ARAMIS SY 24 HR Interval Summary Free Text/Dictation s/p colostomy No feces noted in Bird Exam/Review of Systems Vital Signs Vitals Vital Signs Date Time Temp Pulse Resp B/P Pulse Ox O2 Delivery O2 Flow Rate FiO2 10/14/16 07:38 100.0 97 20 143/65 94 10/14/16 02:00 Nasal Cannula 2.0 Intake and Output 10/13/16 10/13/16 10/14/16 15:00 23:00 07:00 Intake Total 1000 ml 1900 ml 1000 ml Output Total 2010 ml 450 ml Balance 1000 ml -110 ml 550 ml Exam Constitutional: alert, oriented, well developed Psych: nl mood/affect Head: normocephalic Eyes: EOMI, nl conjunctiva, nl lids ENMT: nl external ears & nose, nl lips & teeth, nl nasal mucosa & septum Respiratory: clear to auscultation, normal air movement Cardiovascular: regular rate and rhythm Gastrointestinal: soft, diffuse incisional tenderness Musculoskeletal: nl extremities to inspection Neurological: [employer] II-XII intact Results Result Diagram: 10/14/16 0455 10/14/16 0455 Results 24 hrs Laboratory Tests Test 10/13/16 12:12 10/13/16 19:26 10/13/16 21:43 10/14/16 04:55 Bedside Glucose 86 137 151 White Blood Count 9.9 # Red Blood Count 4.37 Hemoglobin 11.1 L Hematocrit 37.3 Mean Corpuscular Volume 85.4 Mean Corpuscular Hemoglobin 25.4 L Mean Corpuscular Hemoglobin Concent 29.8 L Red Cell Distribution Width 15.5 H Platelet Count 454 H Mean Platelet Volume 7.8 Neutrophils % 80.5 H Lymphocytes % 11.9 L Monocytes % 6.5 Eosinophils % 0.4 Basophils % 0.2 Nucleated Red Blood Cells % 0.0 Neutrophils # 8.0 H Lymphocytes # 1.2 Monocytes # 0.6 Eosinophils # 0.0 Basophils # 0.0 Nucleated Red Blood Cells # 0.0 Sodium Level 133 L Potassium Level 3.4 L Chloride Level 98 Carbon Dioxide Level 28 Anion Gap 10 Blood Urea Nitrogen < 2 L Creatinine 0.37 L Glucose Level 214 # Calcium Level 8.3 L Phosphorus Level 3.7 Magnesium Level 1.2 L Test 10/14/16 07:53 Bedside Glucose 199 Medications Medications Current Medications Miscellaneous Information 1 ea NOTE XX ; Start 10/09/16 at 23:45 Glucose (Glutose) 15 gm Q15M PRN PO DECREASED GLUCOSE; Start 10/09/16 at 23:45 Glucose (Glutose) 22.5 gm Q15M PRN PO DECREASED GLUCOSE; Start 10/09/16 at 23:45 Dextrose (D50w Syringe) 25 ml Q15M PRN IV DECREASED GLUCOSE; Start 10/09/16 at 23:45 Dextrose (D50w Syringe) 50 ml Q15M PRN IV DECREASED GLUCOSE; Start 10/09/16 at 23:45 Glucagon (Glucagen) 1 mg Q15M PRN IM DECREASED GLUCOSE; Start 10/09/16 at 23:45 Glucose (Glutose) 15 gm Q15M PRN BUCCAL DECREASED GLUCOSE; Start 10/09/16 at 23: 45 Metoclopramide HCl (Reglan) 10 mg Q6H PRN IV NAUSEA AND/OR VOMITING; Start 04/18 at 00:00 Famotidine (Pepcid Iv) 20 mg DAILY IV Last administered on 10/14/16 08:22; Admin Dose 20 MG; Start 10/10/16 at 09:00 Morphine Sulfate 4 mg 4 mg Q3 PRN IV SEVERE PAIN LEVEL 7-10 Last administered on 10/13/16 13:36; Admin Dose 4 MG; Start 10/10/16 at 03:00 Piperacillin Sod/ Tazobactam Sod (Zosyn 3.375gm/ 100 ml (Pmx)) 100 ml @ 200 mls /hr Q6 IVPB Last administered on 10/14/16 05:30; Admin Dose 200 MLS/HR; Start 10/10/16 at 18:00 Acetaminophen/ Hydrocodone Bitart ([place] ()) 1 tab Q4H PRN PO PAIN Last administered on 10/12/16 13:23; Admin Dose 1 TAB; Start 10/11/16 at 06:00; Status Future Hold Diphenhydramine HCl (Benadryl) 25 mg Q6H PRN IV ITCHING; Start 10/11/16 at 06: 00 Diagnostic Test (Pha) (Accu-Chek) 1 ea 02 XX ; Start 10/12/16 at 02:00 Ondansetron HCl (Zofran Inj) 4 mg Q6H PRN IV NAUSEA AND/OR VOMITING; Start at 19:00 Morphine Sulfate 2 MG/HR CONTINUOUS RATE 2... Q4PCA IV Last administered on 05:33; Admin Dose 30 MG; Start 10/13/16 at 19:00 Potassium Chloride/Dextrose/ Sod Cl 1,000 ml @ 125 mls/hr Q8H IV Last administered on 10/14/16 08:36; Admin Dose 125 MLS/HR; Start 10/13/16 at 18:58 Acetaminophen (Ofirmev 1000mg/ 100ml Iv) 100 ml @ 400 mls/hr Q6H PRN IVPB PAIN ; Start 10/13/16 at 19:00 ARCHANA GAFFNEY Oct 14, 2016 09:35
[2016-10-14] MEDS ORDERED: hydrALAzine 20 MG INJ IV PRN (10:30)
[2016-10-14 10:59] LABS: ADD SCAN DIFF NO
[2016-10-14] MEDS ORDERED: MAGNESIUM SULFATE 2 GM/50 ML 50 ML IVPB ONE (11:00)
[2016-10-14] MEDS ORDERED: POTASSIUM CHLORIDE 20 MEQ in SOD CHLORIDE 0.9% 100 ML IVPB ONE (11:00)
[2016-10-14 11:03] LABS: BASOPHILS % 0.4 % (0.0-2.0); EOSINOPHILS # 0.1 10^3/ul (0.0-0.5); EOSINOPHILS % 0.6 % (0.0-7.0); HEMATOCRIT 35.5 % (37.0-47.0); LYMPHOCYTES # 1.1 10^3/ul (0.8-2.9); LYMPHOCYTES % 9.8 % (15.0-51.0); MEAN CORPUSCULAR HEMOGLOBIN 26.2 pg (29.0-33.0); MEAN CORPUSCULAR VOLUME 84.5 fl (82.0-101.0); MEAN PLATELET VOLUME 7.6 fl (7.4-10.4); MONOCYTE # 0.8 10^3/ul (0.3-0.9); MONOCYTES % 6.8 % (0.0-11.0); NEUTROPHIL # 9.4 10^3/ul (1.6-7.5); NEUTROPHILS % 81.9 % (39.0-77.0); PLATELET COUNT 434 10^3/UL (140-415); RED CELL DISTRIBUTION WIDTH 15.3 % (11.5-14.5); WHITE BLOOD COUNT 11.4 10^3/ul (4.8-10.8)
[2016-10-14] MEDS: CLONIDINE 0.1 MG/24 HR PATCH TRANSDERM SCH (11:19)
[2016-10-14 11:25] LABS: INR 1.21; PARTIAL THROMBOPLASTIN TIME 34.6 Sec (25.0-35.0); PROTIME 15.4 Sec (12.2-14.2); PT RATIO 1.2
[2016-10-14 11:26] LABS: ANION GAP 9 (8-16); CALCIUM 8.2 mg/dl (8.4-10.2); CARBON DIOXIDE 29 mmol/L (21-31); CHLORIDE 98 mmol/L (97-110); CREATININE 0.36 mg/dl (0.44-1.00); GLUCOSE 222 mg/dl (70-220); MAGNESIUM 1.2 mg/dl (1.7-2.5); PHOSPHORUS 3.5 mg/dl (2.5-4.9); POTASSIUM 3.2 mmol/L (3.5-5.1); SODIUM 133 mmol/L (135-144)
[2016-10-14 11:27] LABS: BLOOD UREA NITROGEN < 2 mg/dl (7-20)
--- NOTE | 2016-10-14 12:26 | HP ---
Date/Time of Note Date/Time of Note DATE: 10/14/16 TIME: 12:10 Assessment/Plan VTE Prophylaxis VTE Prophylaxis Intervention: SCD's Lines/Catheters IV Catheter Type (from Nrsg): Central Line Central line still needed: Yes Urinary Cath still in place: No Assessment/Plan Assessment/Plan - SP Exploratory laparotomy, I and D of pelvic abscess and diverting colostomy on 10/13/2016 - per surgery - NPO - ivf - Incentive spirometer [place] - Hx diverticular abscess and rectovaginal fistula. - sp - Continue Zosyn - per GI consult - Hypertension- BP 150/70 NOW - will give Hydralazine 10 MG IVP q6h prn for SBP>160 - catapress patch 1 tts- Q 7 days - Lower gastrointestinal bleeding likely secondary to diverticulosis-stable - Hyperthyroidism - Weakness and numbness of the left lower extremity-stable - Diabetes-currently stable - Glycemic Control - Hypokalemia-replete, am labs - Hypomagnesium- replet Mag, am labs - SCDs for DVT - former smoker Further recommendations based on patient clinical course. Plan of care dw DR Maldonado/staff. HPI/ROS Admit Date/Time Admit Date/Time Oct 09, 2016 at 17:35 ROS The patient is a 61-year-old female patient with Hx of diverticular abscess approximately 1 year ago and was treated with antibiotics. But Since that time , she had c/o abdominal pain- severe left lower quadrant abdominal pain. Patient was admitted to [facility], and a CAT scan revealed evidence of pelvic abscess, and she previously had a barium enema which demonstrated a rectovaginal fistula. She was transferred to [facility] and underwent Exploratory laparotomy, I and D of pelvic abscess and diverting colostomy on 10/13/2016. Patient is admitted under Dr Ledezma for further treatment and evaluation. During assessment, patient is sleeping, easily awakens to name. Denies any shortness of breath, chest pain, dizziness, palpitations, chills, headache, focal weakness/numbness. Eyes: no complaints ENT: no complaints Respiratory: no complaints Cardiovascular: no complaints Gastrointestinal: decreased appetite, flatus, pain, passing stool, No nausea, No vomiting Genitourinary: no complaints Musculoskeletal: no complaints Skin: no complaints Neurologic: no complaints Lymphatic: no complaints Psychological: nl mood/affect, no complaints Immunologic: no complaints PMH/Family/Social Past Medical History Medical History: diabetes, diverticulitis, hyperthyroid Past Surgical History Hx diverticular abscess and rectovaginal fistula. Social History Alcohol Use: none Smoking Status: Former smoker Drug Use: none Exam/Review of Systems Vital Signs Vitals Vital Signs Date Time Temp Pulse Resp B/P Pulse Ox O2 Delivery O2 Flow Rate FiO2 10/14/16 11:13 97.9 91 20 152/68 95 Nasal Cannula 2.0 Intake and Output 10/13/16 10/13/16 10/14/16 15:00 23:00 07:00 Intake Total 1000 ml 1900 ml 1000 ml Output Total 2010 ml 450 ml Balance 1000 ml -110 ml 550 ml Exam Constitutional: alert, well developed Eyes: EOMI, PERRL, nl sclera ENMT: nl external ears & nose Neck: non-tender Respiratory: diminished breath sounds Cardiovascular: nl pulses Gastrointestinal: bowel sounds (hypoactive, remains npo), other (ngt noted. mid abdomen dresiing noted- no new bleeding noted. DDI. LLQ- colostomy noted.), soft, tender (at surgical site) Musculoskeletal: nl extremities to inspection Extremities: normal pulses Neurological: nl mental status Skin: nl turgor Lymph: nontender Labs Result Diagram: 10/14/16 1044 10/14/16 1044 Medications Medications Current Medications Miscellaneous Information 1 ea NOTE XX ; Start 10/09/16 at 23:45 Glucose (Glutose) 15 gm Q15M PRN PO DECREASED GLUCOSE; Start 10/09/16 at 23:45 Glucose (Glutose) 22.5 gm Q15M PRN PO DECREASED GLUCOSE; Start 10/09/16 at 23:45 Dextrose (D50w Syringe) 25 ml Q15M PRN IV DECREASED GLUCOSE; Start 10/09/16 at 23:45 Dextrose (D50w Syringe) 50 ml Q15M PRN IV DECREASED GLUCOSE; Start 10/09/16 at 23:45 Glucagon (Glucagen) 1 mg Q15M PRN IM DECREASED GLUCOSE; Start 10/09/16 at 23:45 Glucose (Glutose) 15 gm Q15M PRN BUCCAL DECREASED GLUCOSE; Start 10/09/16 at 23: 45 Metoclopramide HCl (Reglan) 10 mg Q6H PRN IV NAUSEA AND/OR VOMITING; Start 04/18 at 00:00 Famotidine (Pepcid Iv) 20 mg DAILY IV Last administered on 10/14/16 08:22; Admin Dose 20 MG; Start 10/10/16 at 09:00 Morphine Sulfate 4 mg 4 mg Q3 PRN IV SEVERE PAIN LEVEL 7-10 Last administered on 10/13/16 13:36; Admin Dose 4 MG; Start 10/10/16 at 03:00 Piperacillin Sod/ Tazobactam Sod (Zosyn 3.375gm/ 100 ml (Pmx)) 100 ml @ 200 mls /hr Q6 IVPB Last administered on 10/14/16 05:30; Admin Dose 200 MLS/HR; Start 10/10/16 at 18:00 Acetaminophen/ Hydrocodone Bitart ([place] ()) 1 tab Q4H PRN PO PAIN Last administered on 10/12/16 13:23; Admin Dose 1 TAB; Start 10/11/16 at 06:00; Status Future Hold Diphenhydramine HCl (Benadryl) 25 mg Q6H PRN IV ITCHING; Start 10/11/16 at 06: 00 Diagnostic Test (Pha) (Accu-Chek) 1 ea 02 XX ; Start 10/12/16 at 02:00 Ondansetron HCl (Zofran Inj) 4 mg Q6H PRN IV NAUSEA AND/OR VOMITING; Start at 19:00 Morphine Sulfate 2 MG/HR CONTINUOUS RATE 2... Q4PCA IV Last administered on 05:33; Admin Dose 30 MG; Start 10/13/16 at 19:00 Potassium Chloride/Dextrose/ Sod Cl 1,000 ml @ 125 mls/hr Q8H IV Last administered on 10/14/16 08:36; Admin Dose 125 MLS/HR; Start 10/13/16 at 18:58 Acetaminophen (Ofirmev 1000mg/ 100ml Iv) 100 ml @ 400 mls/hr Q6H PRN IVPB PAIN ; Start 10/13/16 at 19:00 Hydralazine HCl (Apresoline) 10 mg Q6H PRN IV SBP GREATER THAN 160 Last administered on 10/14/16 10:23; Admin Dose 10 MG; Start 10/14/16 at 10:30 Clonidine HCl 1 patch 1 patch Q7D TRANSDERM Last administered on 10/14/16 11: 19; Admin Dose 1 PATCH; Start 10/14/16 at 11:00 Potassium Chloride 20 meq/ Sodium Chloride 110 ml @ 55 mls/hr ONCE ONCE IVPB Last administered on 10/14/16 11:19; Admin Dose 55 MLS/HR; Start 10/14/16 at 11 :00; Stop 10/14/16 at 12:59 Magnesium Sulfate (Magnesium Sulfate 2 Gm/50 ml) 50 ml @ 25 mls/hr ONCE ONCE IVPB Last administered on 10/14/16 11:43; Admin Dose 25 MLS/HR; Start at 11:00; Stop 10/14/16 at 12:59 MEGHNA SCHMIDT Oct 14, 2016 12:21
[2016-10-14] MEDS ORDERED: PANTOPRAZOLE 40 MG INJ IV ONE (12:30)
--- NOTE | 2016-10-14 13:45 | PN ---
DATE: 10/14/2016 Postop day #1: 1. Status post exploratory laparotomy, placement of a diverting transverse loop colostomy. 2. Status post diverticulitis with pelvic abscesses and colovesical fistula. SUBJECTIVE: Complains of pain. OBJECTIVE: VITAL SIGNS: Temperature 97.9, heart rate 91, respirations 20, blood pressure 152/68, saturation 95% on room air. GENERAL: NG tube is in place, but the machine intermittently is not functioning. The nurses are going to call maintenance to come up and fix the machine for NG tube. Urine output since operation, 2250 mL. No bowel movement , no passing flatus ABDOMEN: Not distended but is tender all over. LOWER EXTREMITIES: Sequential compression devices in place. No calf tenderness. GENITOURINARY: Bird is in place. LABORATORY DATA: WBC 11,400, hemoglobin 11, hematocrit 35.5, neutrophils 81%. Chemistry: Potassium is 3.2, low, they are going to replace it. BUN is less than 2, creatinine 0.36. Blood glucose is 222. Magnesium is 1.2, low. The medical service is going to correct that. ASSESSMENT: The patient is a 61-year-old female status post exploratory laparotomy and placement of diverting transverse colostomy for diversion of fecal stream. The patient also has colovesical fistula, diverticulitis and diverticular abscesses. PLAN: Continue current care. Continue antibiotics. Continue NG tube. Continue Bird. Replace and correct the potassium and magnesium. Dictated By: TICO PUCKETT MD PS/NTS Conf#: [id number] DID#: [id number] MTDOlivia
[2016-10-14] MEDS: KETOROLAC 30 MG INJ IV SCH ×2 (13:52→20:17)
--- NOTE | 2016-10-14 17:37 | PN ---
Date/Time of Note Date/Time of Note DATE: 10/14/16 TIME: 17:33 Assessment/Plan VTE Prophylaxis VTE Prophylaxis Intervention: SCD's Assessment/Plan Chief Complaint/Hosp Course 1. Likely colovesical fistula with diverticulosis and diverticulitis and abscesses status post exploratory laparotomy and placement of diverting transverse colostomy for diversion of fecal stream. The patient also has colovesical fistula, diverticulitis and diverticular abscesses. Continue Zosyn GI consult appreciated pain control Cards consult for preop clearance appreciated, patient cleared for surgery per cardiology 2. Lower gastrointestinal bleeding likely secondary to diverticulosis-stable 3. Hypothyroidism Continue Rx 4. Weakness and numbness of the left lower extremity-stable 5. Diabetes-currently stable Continue sliding-scale 6. Hypokalemia-replete Prophylaxis: SCDs Problems: Subjective 24 Hr Interval Summary Constitutional: no complaints Exam/Review of Systems Vital Signs Vitals Vital Signs Date Time Temp Pulse Resp B/P Pulse Ox O2 Delivery O2 Flow Rate FiO2 10/14/16 16:35 99.4 83 18 131/60 95 Nasal Cannula 2.0 Intake and Output 10/13/16 10/13/16 10/14/16 14:59 22:59 06:59 Intake Total 500 ml 2400 ml 1000 ml Output Total 2010 ml 450 ml Balance 500 ml 390 ml 550 ml Exam Constitutional: alert Respiratory: clear to auscultation Cardiovascular: regular rate and rhythm Gastrointestinal: soft, No distended Musculoskeletal: nl extremities to inspection Results Result Diagram: 10/14/16 1044 10/14/16 1044 Results 24 hrs Laboratory Tests Test 10/13/16 19:26 10/13/16 21:43 10/14/16 04:55 10/14/16 07:53 Bedside Glucose 137 151 199 White Blood Count 9.9 # Red Blood Count 4.37 Hemoglobin 11.1 L Hematocrit 37.3 Mean Corpuscular Volume 85.4 Mean Corpuscular Hemoglobin 25.4 L Mean Corpuscular Hemoglobin Concent 29.8 L Red Cell Distribution Width 15.5 H Platelet Count 454 H Mean Platelet Volume 7.8 Neutrophils % 80.5 H Lymphocytes % 11.9 L Monocytes % 6.5 Eosinophils % 0.4 Basophils % 0.2 Nucleated Red Blood Cells % 0.0 Neutrophils # 8.0 H Lymphocytes # 1.2 Monocytes # 0.6 Eosinophils # 0.0 Basophils # 0.0 Nucleated Red Blood Cells # 0.0 Sodium Level 133 L Potassium Level 3.4 L Chloride Level 98 Carbon Dioxide Level 28 Anion Gap 10 Blood Urea Nitrogen < 2 L Creatinine 0.37 L Glucose Level 214 # Calcium Level 8.3 L Phosphorus Level 3.7 Magnesium Level 1.2 L Test 10/14/16 10:44 10/14/16 11:44 10/14/16 17:01 White Blood Count 11.4 H Red Blood Count 4.20 Hemoglobin 11.0 L Hematocrit 35.5 L Mean Corpuscular Volume 84.5 Mean Corpuscular Hemoglobin 26.2 L Mean Corpuscular Hemoglobin Concent 31.0 L Red Cell Distribution Width 15.3 H Platelet Count 434 H Mean Platelet Volume 7.6 Neutrophils % 81.9 H Lymphocytes % 9.8 L Monocytes % 6.8 Eosinophils % 0.6 Basophils % 0.4 Nucleated Red Blood Cells % 0.0 Neutrophils # 9.4 H Lymphocytes # 1.1 Monocytes # 0.8 Eosinophils # 0.1 Basophils # 0.0 Nucleated Red Blood Cells # 0.0 Prothrombin Time 15.4 H Prothrombin Time Ratio 1.2 INR International Normalized Ratio 1.21 Activated Partial Thromboplast Time 34.6 Sodium Level 133 L Potassium Level 3.2 L Chloride Level 98 Carbon Dioxide Level 29 Anion Gap 9 Blood Urea Nitrogen < 2 L Creatinine 0.36 L Glucose Level 222 H Calcium Level 8.2 L Phosphorus Level 3.5 Magnesium Level 1.2 L Bedside Glucose 193 192 Medications Medications Current Medications Miscellaneous Information 1 ea NOTE XX ; Start 10/09/16 at 23:45 Glucose (Glutose) 15 gm Q15M PRN PO DECREASED GLUCOSE; Start 10/09/16 at 23:45 Glucose (Glutose) 22.5 gm Q15M PRN PO DECREASED GLUCOSE; Start 10/09/16 at 23:45 Dextrose (D50w Syringe) 25 ml Q15M PRN IV DECREASED GLUCOSE; Start 10/09/16 at 23:45 Dextrose (D50w Syringe) 50 ml Q15M PRN IV DECREASED GLUCOSE; Start 10/09/16 at 23:45 Glucagon (Glucagen) 1 mg Q15M PRN IM DECREASED GLUCOSE; Start 10/09/16 at 23:45 Glucose (Glutose) 15 gm Q15M PRN BUCCAL DECREASED GLUCOSE; Start 10/09/16 at 23: 45 Metoclopramide HCl (Reglan) 10 mg Q6H PRN IV NAUSEA AND/OR VOMITING; Start 04/18 at 00:00 Morphine Sulfate 4 mg 4 mg Q3 PRN IV SEVERE PAIN LEVEL 7-10 Last administered on 10/13/16 13:36; Admin Dose 4 MG; Start 10/10/16 at 03:00 Piperacillin Sod/ Tazobactam Sod (Zosyn 3.375gm/ 100 ml (Pmx)) 100 ml @ 200 mls /hr Q6 IVPB Last administered on 10/14/16 12:19; Admin Dose 200 MLS/HR; Start 10/10/16 at 18:00 Acetaminophen/ Hydrocodone Bitart ([place] ()) 1 tab Q4H PRN PO PAIN Last administered on 10/12/16 13:23; Admin Dose 1 TAB; Start 10/11/16 at 06:00; Status Future Hold Diphenhydramine HCl (Benadryl) 25 mg Q6H PRN IV ITCHING; Start 10/11/16 at 06: 00 Diagnostic Test (Pha) (Accu-Chek) 1 ea 02 XX ; Start 10/12/16 at 02:00 Ondansetron HCl (Zofran Inj) 4 mg Q6H PRN IV NAUSEA AND/OR VOMITING; Start at 19:00 Morphine Sulfate 2 MG/HR CONTINUOUS RATE 2... Q4PCA IV Last administered on 12:21; Admin Dose 30 MG; Start 10/13/16 at 19:00 Potassium Chloride/Dextrose/ Sod Cl 1,000 ml @ 125 mls/hr Q8H IV Last administered on 10/14/16 08:36; Admin Dose 125 MLS/HR; Start 10/13/16 at 18:58 Acetaminophen (Ofirmev 1000mg/ 100ml Iv) 100 ml @ 400 mls/hr Q6H PRN IVPB PAIN ; Start 10/13/16 at 19:00 Hydralazine HCl (Apresoline) 10 mg Q6H PRN IV SBP GREATER THAN 160 Last administered on 10/14/16 10:23; Admin Dose 10 MG; Start 10/14/16 at 10:30 Clonidine HCl (Catapres-Tts 1 Patch) 1 patch Q7D TRANSDERM Last administered on 10/14/16 11:19; Admin Dose 1 PATCH; Start 10/14/16 at 11:00 Pantoprazole (Protonix Iv) 40 mg DAILY@06 IV ; Start 10/15/16 at 06:00 Ketorolac Tromethamine (Toradol) 30 mg Q6H IV Last administered on 10/14/16 13 :52; Admin Dose 30 MG; Start 10/14/16 at 13:30; Stop 10/16/16 at 13:29 ARAMIS SY Oct 14, 2016 17:37
[2016-10-14] MEDS: INSULIN ASPART [NOVOLOG] 3 ML PEN SC SCH (20:37)
[2016-10-15] VITALS: BP 108/55; PULSE 74; RESP 18
[2016-10-15] MEDS: PIPER-TAZO 3.375 GM IV (PMX) 100 ML IVPB SCH ×4 (00:45→17:53)
[2016-10-15] MEDS: INSULIN ASPART [NOVOLOG] 3 ML PEN SC SCH ×6 (00:58→20:37)
[2016-10-15] MEDS: KETOROLAC 30 MG INJ IV SCH ×4 (01:31→20:25)
[2016-10-15] MEDS: ACCUCHECK AT 2AM (Patients on SS coverage) XX SCH (02:00)
[2016-10-15] MEDS: morphine 1 MG/ML 30 ML (PCA) IV SCH ×3 (02:46→21:17)
[2016-10-15] MEDS: D5W-0.45 NACL + KCL 20 MEQ 1,000 ML IV SCH ×5 (02:58→17:53)
[2016-10-15 05:00] VITALS: BP 107/55; PULSE 74; RESP 19
[2016-10-15] MEDS: PANTOPRAZOLE 40 MG INJ IV SCH (05:15)
[2016-10-15 06:09] LABS: ADD SCAN DIFF NO
[2016-10-15] MEDS: LEVOTHYROXINE 150 MCG TAB PO SCH (06:16)
[2016-10-15 06:21] LABS: BASOPHILS % 0.3 % (0.0-2.0); EOSINOPHILS # 0.1 10^3/ul (0.0-0.5); EOSINOPHILS % 1.1 % (0.0-7.0); HEMATOCRIT 31.1 % (37.0-47.0); HEMOGLOBIN 9.2 g/dl (12.0-16.0); LYMPHOCYTES # 1.3 10^3/ul (0.8-2.9); LYMPHOCYTES % 13.4 % (15.0-51.0); MEAN CORPUSCULAR HEMOGLOBIN 25.9 pg (29.0-33.0); MEAN CORPUSCULAR HGB CONC 29.6 g/dl (32.0-37.0); MEAN CORPUSCULAR VOLUME 87.6 fl (82.0-101.0); MONOCYTE # 0.7 10^3/ul (0.3-0.9); MONOCYTES % 7.8 % (0.0-11.0); NEUTROPHIL # 7.2 10^3/ul (1.6-7.5); PLATELET COUNT 352 10^3/UL (140-415); RED BLOOD COUNT 3.55 10^6/ul (4.20-5.40); RED CELL DISTRIBUTION WIDTH 15.7 % (11.5-14.5); WHITE BLOOD COUNT 9.3 10^3/ul (4.8-10.8)
[2016-10-15 06:25] LABS: INR 1.33; PROTIME 16.6 Sec (12.2-14.2); PT RATIO 1.3
[2016-10-15 06:26] LABS: PARTIAL THROMBOPLASTIN TIME 35.9 Sec (25.0-35.0)
[2016-10-15 06:35] LABS: CHLORIDE 103 mmol/L (97-110); POTASSIUM 3.5 mmol/L (3.5-5.1); SODIUM 138 mmol/L (135-144)
[2016-10-15 06:38] LABS: ANION GAP 10 (8-16); CARBON DIOXIDE 29 mmol/L (21-31); GLUCOSE 162 mg/dl (70-220)
[2016-10-15 06:39] LABS: CALCIUM 8.1 mg/dl (8.4-10.2); MAGNESIUM 1.8 mg/dl (1.7-2.5); PHOSPHORUS 3.1 mg/dl (2.5-4.9)
[2016-10-15 06:51] LABS: BLOOD UREA NITROGEN < 2 mg/dl (7-20)
[2016-10-15 07:54] VITALS: BP 105/56; RESP 18
--- NOTE | 2016-10-15 11:00 | PN ---
Date/Time of Note Date/Time of Note DATE: 10/15/16 TIME: 10:59 Assessment/Plan VTE Prophylaxis VTE Prophylaxis Intervention: other Lines/Catheters IV Catheter Type (from Nrsg): Central Line Central line still needed: Yes Urinary Cath still in place: Yes Reason Cath still needed: skin wounds contaminated by urine Assessment/Plan Chief Complaint/Hosp Course - SP Exploratory laparotomy, I and D of pelvic abscess and diverting colostomy on 10/13/2016 - per surgery - NPO - ivf - Incentive spirometer [place] - Hx diverticular abscess and rectovaginal fistula. - sp - Continue Zosyn - per GI consult - Hypertension- BP 150/70 NOW - will give Hydralazine 10 MG IVP q6h prn for SBP>160 - catapress patch 1 tts- Q 7 days - Lower gastrointestinal bleeding likely secondary to diverticulosis-stable - Hyperthyroidism - Weakness and numbness of the left lower extremity-stable - Diabetes-currently stable - Glycemic Control - Hypokalemia-replete, am labs - Hypomagnesium- replet Mag, am labs - SCDs for DVT - former smoker Problems: Subjective 24 Hr Interval Summary Free Text/Dictation Patient wonders when she can eat again Exam/Review of Systems Vital Signs Vitals Vital Signs Date Time Temp Pulse Resp B/P Pulse Ox O2 Delivery O2 Flow Rate FiO2 10/15/16 08:18 18 10/15/16 07:54 98.4 71 105/56 96 10/15/16 05:00 Nasal Cannula 10/15/16 02:18 2.0 Intake and Output 10/14/16 10/14/16 10/15/16 15:00 23:00 07:00 Intake Total 100 ml 1160 ml 1100 ml Output Total 600 ml 550 ml 800 ml Balance -500 ml 610 ml 300 ml Exam Constitutional: well developed Head: atraumatic, normocephalic Neck: supple Respiratory: diminished breath sounds Cardiovascular: regular rate and rhythm Gastrointestinal: non-tender, soft Extremities: normal pulses Results Result Diagram: 10/15/16 0512 10/15/16 0512 Results 24 hrs Laboratory Tests Test 10/14/16 11:44 10/14/16 17:01 10/14/16 20:36 10/15/16 00:51 Bedside Glucose 193 192 138 170 Test 10/15/16 05:10 10/15/16 05:12 10/15/16 08:23 Bedside Glucose 163 173 White Blood Count 9.3 Red Blood Count 3.55 L Hemoglobin 9.2 L Hematocrit 31.1 L Mean Corpuscular Volume 87.6 Mean Corpuscular Hemoglobin 25.9 L Mean Corpuscular Hemoglobin Concent 29.6 L Red Cell Distribution Width 15.7 H Platelet Count 352 Mean Platelet Volume 8.0 Neutrophils % 77.0 Lymphocytes % 13.4 L Monocytes % 7.8 Eosinophils % 1.1 Basophils % 0.3 Nucleated Red Blood Cells % 0.0 Neutrophils # 7.2 Lymphocytes # 1.3 Monocytes # 0.7 Eosinophils # 0.1 Basophils # 0.0 Nucleated Red Blood Cells # 0.0 Prothrombin Time 16.6 H Prothrombin Time Ratio 1.3 INR International Normalized Ratio 1.33 Activated Partial Thromboplast Time 35.9 H Sodium Level 138 Potassium Level 3.5 Chloride Level 103 Carbon Dioxide Level 29 Anion Gap 10 Blood Urea Nitrogen < 2 L Creatinine 0.40 L Glucose Level 162 Calcium Level 8.1 L Phosphorus Level 3.1 Magnesium Level 1.7 Medications Medications Current Medications Miscellaneous Information 1 ea NOTE XX ; Start 10/09/16 at 23:45 Glucose (Glutose) 15 gm Q15M PRN PO DECREASED GLUCOSE; Start 10/09/16 at 23:45 Glucose (Glutose) 22.5 gm Q15M PRN PO DECREASED GLUCOSE; Start 10/09/16 at 23:45 Dextrose (D50w Syringe) 25 ml Q15M PRN IV DECREASED GLUCOSE; Start 10/09/16 at 23:45 Dextrose (D50w Syringe) 50 ml Q15M PRN IV DECREASED GLUCOSE; Start 10/09/16 at 23:45 Glucagon (Glucagen) 1 mg Q15M PRN IM DECREASED GLUCOSE; Start 10/09/16 at 23:45 Glucose (Glutose) 15 gm Q15M PRN BUCCAL DECREASED GLUCOSE; Start 10/09/16 at 23: 45 Metoclopramide HCl (Reglan) 10 mg Q6H PRN IV NAUSEA AND/OR VOMITING; Start 04/18 at 00:00 Morphine Sulfate 4 mg 4 mg Q3 PRN IV SEVERE PAIN LEVEL 7-10 Last administered on 10/13/16t 13:36; Admin Dose 4 MG; Start 10/10/16 at 03:00 Piperacillin Sod/ Tazobactam Sod (Zosyn 3.375gm/ 100 ml (Pmx)) 100 ml @ 200 mls /hr Q6 IVPB Last administered on 10/15/16 06:14; Admin Dose 200 MLS/HR; Start 10/10/16 at 18:00 Acetaminophen/ Hydrocodone Bitart ([place] (10)) 1 tab Q4H PRN PO PAIN Last administered on 10/12/16 13:23; Admin Dose 1 TAB; Start 10/11/16 at 06:00; Status Future Hold Diphenhydramine HCl (Benadryl) 25 mg Q6H PRN IV ITCHING; Start 10/11/16 at 06: 00 Diagnostic Test (Pha) (Accu-Chek) 1 ea 02 XX ; Start 10/12/16 at 02:00 Ondansetron HCl (Zofran Inj) 4 mg Q6H PRN IV NAUSEA AND/OR VOMITING; Start at 19:00 Morphine Sulfate 2 MG/HR CONTINUOUS RATE 2... Q4PCA IV Last administered on 02:46; Admin Dose 30 MG; Start 10/13/16 at 19:00 Potassium Chloride/Dextrose/ Sod Cl 1,000 ml @ 125 mls/hr Q8H IV Last administered on 10/15/16 05:06; Admin Dose 125 MLS/HR; Start 10/13/16 at 18:58 Acetaminophen (Ofirmev 1000mg/ 100ml Iv) 100 ml @ 400 mls/hr Q6H PRN IVPB PAIN ; Start 10/13/16 at 19:00 Hydralazine HCl (Apresoline) 10 mg Q6H PRN IV SBP GREATER THAN 160 Last administered on 10/14/16 10:23; Admin Dose 10 MG; Start 10/14/16 at 10:30 Clonidine HCl (Catapres-Tts 1 Patch) 1 patch Q7D TRANSDERM Last administered on 10/14/16 11:19; Admin Dose 1 PATCH; Start 10/14/16 at 11:00 Pantoprazole (Protonix Iv) 40 mg DAILY@06 IV Last administered on 10/15/16 05: 15; Admin Dose 40 MG; Start 10/15/16 at 06:00 Ketorolac Tromethamine (Toradol) 30 mg Q6H IV Last administered on 10/15/16 08 :12; Admin Dose 30 MG; Start 10/14/16 at 13:30; Stop 10/16/16 at 13:29 Insulin Aspart (Novolog Insulin Pen) NOVOLOG *MILD* ALGORI... Q4 SC Last administered on 10/15/16 08:34; Admin Dose 1 UNIT; Start 10/14/16 at 21:00 JOHN SENA Oct 15, 2016 11:00
--- NOTE | 2016-10-15 11:49 | CONS ---
Date/Time of Note Date/Time of Note DATE: 10/15/16 TIME: 11:45 Assessment/Plan Assessment/Plan Additional Assessment/Plan Assessment * Sigmoid diverticulitis with abscess * Colovesical fistula, s/p colostomy * Hyperlipidemia * Major depression * Diabetes mellitus * Plan * continue present management * Further recommendations depend on clinical course * Patient seen in collaboration with Dr. Carson Consultation Date/Type/Reason Admit Date/Time Oct 09, 2016 at 17:35 Initial Consult Date 10/11/16 Type of Consultation: Gastroenterology Referring Provider: ARAMIS SY 24 HR Interval Summary Free Text/Dictation Good UOP w/out evidence of feces Abdominal pain slightly improving Reports passing gas but no BM Exam/Review of Systems Vital Signs Vitals Vital Signs Date Time Temp Pulse Resp B/P Pulse Ox O2 Delivery O2 Flow Rate FiO2 10/15/16 08:18 18 10/15/16 07:54 98.4 71 105/56 96 10/15/16 05:00 Nasal Cannula 10/15/16 02:18 2.0 Intake and Output 10/14/16 10/14/16 10/15/16 15:00 23:00 07:00 Intake Total 100 ml 1160 ml 1100 ml Output Total 600 ml 550 ml 800 ml Balance -500 ml 610 ml 300 ml Exam Constitutional: alert, oriented, well developed Psych: nl mood/affect Head: normocephalic Eyes: EOMI, nl conjunctiva, nl lids ENMT: nl external ears & nose, nl lips & teeth, nl nasal mucosa & septum Respiratory: clear to auscultation, normal air movement Cardiovascular: regular rate and rhythm Gastrointestinal: soft, diffuse incisional tenderness Musculoskeletal: nl extremities to inspection Neurological: 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 intact Results Result Diagram: 10/15/16 0512 10/15/16 0512 Results 24 hrs Laboratory Tests Test 10/14/16 17:01 10/14/16 20:36 10/15/16 00:51 10/15/16 05:10 Bedside Glucose 192 138 170 163 Test 10/15/16 05:12 10/15/16 08:23 White Blood Count 9.3 Red Blood Count 3.55 L Hemoglobin 9.2 L Hematocrit 31.1 L Mean Corpuscular Volume 87.6 Mean Corpuscular Hemoglobin 25.9 L Mean Corpuscular Hemoglobin Concent 29.6 L Red Cell Distribution Width 15.7 H Platelet Count 352 Mean Platelet Volume 8.0 Neutrophils % 77.0 Lymphocytes % 13.4 L Monocytes % 7.8 Eosinophils % 1.1 Basophils % 0.3 Nucleated Red Blood Cells % 0.0 Neutrophils # 7.2 Lymphocytes # 1.3 Monocytes # 0.7 Eosinophils # 0.1 Basophils # 0.0 Nucleated Red Blood Cells # 0.0 Prothrombin Time 16.6 H Prothrombin Time Ratio 1.3 INR International Normalized Ratio 1.33 Activated Partial Thromboplast Time 35.9 H Sodium Level 138 Potassium Level 3.5 Chloride Level 103 Carbon Dioxide Level 29 Anion Gap 10 Blood Urea Nitrogen < 2 L Creatinine 0.40 L Glucose Level 162 Calcium Level 8.1 L Phosphorus Level 3.1 Magnesium Level 1.7 Bedside Glucose 173 Medications Medications Current Medications Miscellaneous Information 1 ea NOTE XX ; Start 10/09/16 at 23:45 Glucose (Glutose) 15 gm Q15M PRN PO DECREASED GLUCOSE; Start 10/09/16 at 23:45 Glucose (Glutose) 22.5 gm Q15M PRN PO DECREASED GLUCOSE; Start 10/09/16 at 23:45 Dextrose (D50w Syringe) 25 ml Q15M PRN IV DECREASED GLUCOSE; Start 10/09/16 at 23:45 Dextrose (D50w Syringe) 50 ml Q15M PRN IV DECREASED GLUCOSE; Start 10/09/16 at 23:45 Glucagon (Glucagen) 1 mg Q15M PRN IM DECREASED GLUCOSE; Start 10/09/16 at 23:45 Glucose (Glutose) 15 gm Q15M PRN BUCCAL DECREASED GLUCOSE; Start 10/09/16 at 23: 45 Metoclopramide HCl (Reglan) 10 mg Q6H PRN IV NAUSEA AND/OR VOMITING; Start 04/18 at 00:00 Morphine Sulfate 4 mg 4 mg Q3 PRN IV SEVERE PAIN LEVEL 7-10 Last administered on 10/13/16 13:36; Admin Dose 4 MG; Start 10/10/16 at 03:00 Piperacillin Sod/ Tazobactam Sod (Zosyn 3.375gm/ 100 ml (Pmx)) 100 ml @ 200 mls /hr Q6 IVPB Last administered on 10/15/16 06:14; Admin Dose 200 MLS/HR; Start 10/10/16 at 18:00 Acetaminophen/ Hydrocodone Bitart ([place] ()) 1 tab Q4H PRN PO PAIN Last administered on 10/12/16 13:23; Admin Dose 1 TAB; Start 10/11/16 at 06:00; Status Future Hold Diphenhydramine HCl (Benadryl) 25 mg Q6H PRN IV ITCHING; Start 10/11/16 at 06: 00 Diagnostic Test (Pha) (Accu-Chek) 1 ea 02 XX ; Start 10/12/16 at 02:00 Ondansetron HCl (Zofran Inj) 4 mg Q6H PRN IV NAUSEA AND/OR VOMITING; Start at 19:00 Morphine Sulfate 2 MG/HR CONTINUOUS RATE 2... Q4PCA IV Last administered on 02:46; Admin Dose 30 MG; Start 10/13/16 at 19:00 Potassium Chloride/Dextrose/ Sod Cl 1,000 ml @ 125 mls/hr Q8H IV Last administered on 10/15/16 05:06; Admin Dose 125 MLS/HR; Start 10/13/16 at 18:58 Acetaminophen (Ofirmev 1000mg/ 100ml Iv) 100 ml @ 400 mls/hr Q6H PRN IVPB PAIN ; Start 10/13/16 at 19:00 Hydralazine HCl (Apresoline) 10 mg Q6H PRN IV SBP GREATER THAN 160 Last administered on 10/14/16 10:23; Admin Dose 10 MG; Start 10/14/16 at 10:30 Clonidine HCl (Catapres-Tts 1 Patch) 1 patch Q7D TRANSDERM Last administered on 10/14/16 11:19; Admin Dose 1 PATCH; Start 10/14/16 at 11:00 Pantoprazole (Protonix Iv) 40 mg DAILY@06 IV Last administered on 10/15/16 05: 15; Admin Dose 40 MG; Start 10/15/16 at 06:00 Ketorolac Tromethamine (Toradol) 30 mg Q6H IV Last administered on 10/15/16 08 :12; Admin Dose 30 MG; Start 10/14/16 at 13:30; Stop 10/16/16 at 13:29 Insulin Aspart (Novolog Insulin Pen) NOVOLOG *MILD* ALGORI... Q4 SC Last administered on 10/15/16 08:34; Admin Dose 1 UNIT; Start 10/14/16 at 21:00 ARCHANA GAFFNEY Oct 15, 2016 11:49
[2016-10-15 12:00] VITALS: BP 116/62; RESP 18
--- NOTE | 2016-10-15 18:06 | PN ---
DATE: Status post laparotomy, placement of diverting transverse loop colostomy for diverticulitis and ____ _ abscesses, postop day #2. SUBJECTIVE: Feels better. OBJECTIVE: VITAL SIGNS: Temperature 98.4, pulse 71, respiratory rate 18, blood pressure 105/56, saturation 96% on 2 liter nasal cannula. ABDOMEN: Not distended, is soft but tender. Colostomy is not functioning yet. NG tube is in place draining greenish fluid, is about 300 mL since yesterday. EXTREMITIES: Legs no calf tenderness. SCDs on the legs. LABORATORY DATA: PT has increased to 16.6, INR 1.33 . Chemistry: BUN and creatinine normal. Sodium and potassium normal. Glucose 165. Hematology: WBC 9300, hemoglobin 9.2, hematocrit 31.1 ASSESSMENT: Status post laparotomy, placement of diverting colostomy. No colostomy function yet. PLAN: Continue current care, antibiotics, SCDs and incentive spirometry. Dictated By: TICO PUCKETT MD PS/ELINA Conf#: [id number] DID#: [id number]
[2016-10-15 19:40] VITALS: BP 134/62; RESP 18
--- NOTE | 2016-10-15 22:05 | PN ---
Date/Time of Note Date/Time of Note DATE: 10/15/16 TIME: 22:03 Assessment/Plan VTE Prophylaxis VTE Prophylaxis Intervention: SCD's Lines/Catheters IV Catheter Type (from Nrsg): Central Line Central line still needed: Yes (IV abx, difficult to maintain peripheral IV access ) Urinary Cath still in place: Yes Reason Cath still needed: urinary retention Assessment/Plan Assessment/Plan 1. Acute colovesical fistula with diverticulosis and diverticulitis and abscesses status post exploratory laparotomy and placement of diverting transverse colostomy for diversion of fecal stream. The patient also has colovesical fistula, diverticulitis and diverticular abscesses. IV abx zosyn,ID following 2. Lower gastrointestinal bleeding likely secondary to diverticulosis-stable 3. Hypothyroidism Continue Rx 4. Weakness and numbness of the left lower extremity-stable 5. Diabetes-currently stable Continue sliding-scale 6. Hypokalemia-replete Prophylaxis: SCDs Exam/Review of Systems Vital Signs Vitals Vital Signs Date Time Temp Pulse Resp B/P Pulse Ox O2 Delivery O2 Flow Rate FiO2 10/15/16 21:22 19 10/15/16 19:52 2.0 10/15/16 19:40 98.9 67 134/62 92 10/15/16 12:00 Nasal Cannula Intake and Output 10/14/16 10/14/16 10/15/16 15:00 23:00 07:00 Intake Total 100 ml 1160 ml 1200 ml Output Total 600 ml 550 ml 800 ml Balance -500 ml 610 ml 400 ml Exam Constitutional: alert Respiratory: clear to auscultation Cardiovascular: regular rate and rhythm Gastrointestinal: soft, + diverting colostomy No distended Musculoskeletal: nl extremities to inspection Results Result Diagram: 10/15/1612 10/15/1612 Results 24 hrs Laboratory Tests Test 10/15/16 00:51 10/15/16 05:10 10/15/16 05:12 10/15/16 08:23 Bedside Glucose 170 163 173 White Blood Count 9.3 Red Blood Count 3.55 L Hemoglobin 9.2 L Hematocrit 31.1 L Mean Corpuscular Volume 87.6 Mean Corpuscular Hemoglobin 25.9 L Mean Corpuscular Hemoglobin Concent 29.6 L Red Cell Distribution Width 15.7 H Platelet Count 352 Mean Platelet Volume 8.0 Neutrophils % 77.0 Lymphocytes % 13.4 L Monocytes % 7.8 Eosinophils % 1.1 Basophils % 0.3 Nucleated Red Blood Cells % 0.0 Neutrophils # 7.2 Lymphocytes # 1.3 Monocytes # 0.7 Eosinophils # 0.1 Basophils # 0.0 Nucleated Red Blood Cells # 0.0 Prothrombin Time 16.6 H Prothrombin Time Ratio 1.3 INR International Normalized Ratio 1.33 Activated Partial Thromboplast Time 35.9 H Sodium Level 138 Potassium Level 3.5 Chloride Level 103 Carbon Dioxide Level 29 Anion Gap 10 Blood Urea Nitrogen < 2 L Creatinine 0.40 L Glucose Level 162 Calcium Level 8.1 L Phosphorus Level 3.1 Magnesium Level 1.7 Test 10/15/16 12:25 10/15/16 18:01 10/15/16 20:36 Bedside Glucose 165 106 124 Medications Medications Current Medications Miscellaneous Information 1 ea NOTE XX ; Start 10/09/16 at 23:45 Glucose (Glutose) 15 gm Q15M PRN PO DECREASED GLUCOSE; Start 10/09/16 at 23:45 Glucose (Glutose) 22.5 gm Q15M PRN PO DECREASED GLUCOSE; Start 10/09/16 at 23:45 Dextrose (D50w Syringe) 25 ml Q15M PRN IV DECREASED GLUCOSE; Start 10/09/16 at 23:45 Dextrose (D50w Syringe) 50 ml Q15M PRN IV DECREASED GLUCOSE; Start 10/09/16 at 23:45 Glucagon (Glucagen) 1 mg Q15M PRN IM DECREASED GLUCOSE; Start 10/09/16 at 23:45 Glucose (Glutose) 15 gm Q15M PRN BUCCAL DECREASED GLUCOSE; Start 10/09/16 at 23: 45 Metoclopramide HCl (Reglan) 10 mg Q6H PRN IV NAUSEA AND/OR VOMITING; Start 04/18 at 00:00 Morphine Sulfate 4 mg 4 mg Q3 PRN IV SEVERE PAIN LEVEL 7-10 Last administered on 10/13/16 13:36; Admin Dose 4 MG; Start 10/10/16 at 03:00 Piperacillin Sod/ Tazobactam Sod (Zosyn 3.375gm/ 100 ml (Pmx)) 100 ml @ 200 mls /hr Q6 IVPB Last administered on 10/15/16 17:53; Admin Dose 200 MLS/HR; Start 10/10/16 at 18:00 Acetaminophen/ Hydrocodone Bitart ([place] ()) 1 tab Q4H PRN PO PAIN Last administered on 10/12/16 13:23; Admin Dose 1 TAB; Start 10/11/16 at 06:00; Status Future Hold Diphenhydramine HCl (Benadryl) 25 mg Q6H PRN IV ITCHING; Start 10/11/16 at 06: 00 Diagnostic Test (Pha) (Accu-Chek) 1 ea 02 XX ; Start 10/12/16 at 02:00 Ondansetron HCl (Zofran Inj) 4 mg Q6H PRN IV NAUSEA AND/OR VOMITING; Start at 19:00 Morphine Sulfate 2 MG/HR CONTINUOUS RATE 2... Q4PCA IV Last administered on 21:17; Admin Dose 30 MG; Start 10/13/16 at 19:00 Potassium Chloride/Dextrose/ Sod Cl 1,000 ml @ 125 mls/hr Q8H IV Last administered on 10/15/16 15:35; Admin Dose 125 MLS/HR; Start 10/13/16 at 18:58 Acetaminophen (Ofirmev 1000mg/ 100ml Iv) 100 ml @ 400 mls/hr Q6H PRN IVPB PAIN ; Start 10/13/16 at 19:00 Hydralazine HCl (Apresoline) 10 mg Q6H PRN IV SBP GREATER THAN 160 Last administered on 10/14/16 10:23; Admin Dose 10 MG; Start 10/14/16 at 10:30 Clonidine HCl (Catapres-Tts 1 Patch) 1 patch Q7D TRANSDERM Last administered on 10/14/16 11:19; Admin Dose 1 PATCH; Start 10/14/16 at 11:00 Pantoprazole (Protonix Iv) 40 mg DAILY@06 IV Last administered on 10/15/16 05: 15; Admin Dose 40 MG; Start 10/15/16 at 06:00 Ketorolac Tromethamine (Toradol) 30 mg Q6H IV Last administered on 10/15/16 20 :25; Admin Dose 30 MG; Start 10/14/16 at 13:30; Stop 10/16/16 at 13:29 Insulin Aspart (Novolog Insulin Pen) NOVOLOG *MILD* ALGORI... Q4 SC Last administered on 4/15/17at 12:47; Admin Dose 1 UNIT; Start 10/14/16 at 21:00 UGO BRYANT MD Oct 15, 2016 22:04
[2016-10-16] MEDS: PIPER-TAZO 3.375 GM IV (PMX) 100 ML IVPB SCH ×4 (00:35→17:48)
[2016-10-16] MEDS: INSULIN ASPART [NOVOLOG] 3 ML PEN SC SCH ×6 (00:39→21:00)
[2016-10-16 00:43] VITALS: BP 114/59; PULSE 70; RESP 19
[2016-10-16] MEDS: ACCUCHECK AT 2AM (Patients on SS coverage) XX SCH (02:00)
[2016-10-16] MEDS: KETOROLAC 30 MG INJ IV SCH ×2 (02:19→08:16)
[2016-10-16] MEDS: D5W-0.45 NACL + KCL 20 MEQ 1,000 ML IV SCH ×4 (02:20→17:49)
[2016-10-16] MEDS: morphine 1 MG/ML 30 ML (PCA) IV SCH ×2 (04:32→15:00)
[2016-10-16 05:30] VITALS: BP 108/54; PULSE 64; RESP 18
[2016-10-16] MEDS: PANTOPRAZOLE 40 MG INJ IV SCH (05:45)
[2016-10-16] MEDS: LEVOTHYROXINE 150 MCG TAB PO SCH (05:57)
[2016-10-16 07:46] VITALS: BP 134/60; RESP 20
[2016-10-16 10:23] LABS: ADD SCAN DIFF NO
[2016-10-16 10:26] LABS: BASOPHILS % 0.4 % (0.0-2.0); EOSINOPHILS # 0.1 10^3/ul (0.0-0.5); EOSINOPHILS % 1.5 % (0.0-7.0); HEMOGLOBIN 9.1 g/dl (12.0-16.0); LYMPHOCYTES # 1.2 10^3/ul (0.8-2.9); LYMPHOCYTES % 14.4 % (15.0-51.0); MEAN CORPUSCULAR HEMOGLOBIN 25.9 pg (29.0-33.0); MEAN CORPUSCULAR HGB CONC 29.4 g/dl (32.0-37.0); MEAN CORPUSCULAR VOLUME 88.1 fl (82.0-101.0); MEAN PLATELET VOLUME 7.9 fl (7.4-10.4); MONOCYTE # 0.5 10^3/ul (0.3-0.9); MONOCYTES % 6.3 % (0.0-11.0); NEUTROPHIL # 6.3 10^3/ul (1.6-7.5); PLATELET COUNT 343 10^3/UL (140-415); RED BLOOD COUNT 3.52 10^6/ul (4.20-5.40); RED CELL DISTRIBUTION WIDTH 15.9 % (11.5-14.5); WHITE BLOOD COUNT 8.1 10^3/ul (4.8-10.8)
[2016-10-16 10:49] LABS: INR 1.2; PROTIME 15.3 Sec (12.2-14.2); PT RATIO 1.2
[2016-10-16 10:50] LABS: PARTIAL THROMBOPLASTIN TIME 36.4 Sec (25.0-35.0)
[2016-10-16 10:53] LABS: CHLORIDE 104 mmol/L (97-110); SODIUM 139 mmol/L (135-144)
[2016-10-16 10:54] LABS: POTASSIUM 3.6 mmol/L (3.5-5.1)
[2016-10-16 10:56] LABS: ANION GAP 10 (8-16); CARBON DIOXIDE 29 mmol/L (21-31); CREATININE 0.38 mg/dl (0.44-1.00)
[2016-10-16 10:57] LABS: BLOOD UREA NITROGEN < 2 mg/dl (7-20); GLUCOSE 166 mg/dl (70-220); MAGNESIUM 1.5 mg/dl (1.7-2.5); PHOSPHORUS 3.1 mg/dl (2.5-4.9)
--- NOTE | 2016-10-16 11:15 | PN ---
Date/Time of Note Date/Time of Note DATE: 10/16/16 TIME: 11:10 Assessment/Plan VTE Prophylaxis VTE Prophylaxis Intervention: SCD's Lines/Catheters IV Catheter Type (from Nrsg): Central Line Central line still needed: Yes (IV access s/p surgery, on IVF , IV abx ) Urinary Cath still in place: Yes Reason Cath still needed: other (indicate) (Post op ) Assessment/Plan Assessment/Plan 1. Acute colovesical fistula with diverticulosis and diverticulitis and abscesses status post exploratory laparotomy and placement of diverting transverse colostomy for diversion of fecal stream. The patient also has colovesical fistula, diverticulitis and diverticular abscesses. IV abx zosyn,ID following 2. Lower gastrointestinal bleeding likely secondary to diverticulosis-stable 3. Hypothyroidism Continue Rx 4. Weakness and numbness of the left lower extremity-stable 5. Diabetes-currently stable Continue sliding-scale 6. Hypokalemia-replete Prophylaxis: SCDs Subjective 24 Hr Interval Summary Free Text/Dictation pt stable, still NPO, BP stable, mag low, on NG tube suction , G surg following Exam/Review of Systems Vital Signs Vitals Vital Signs Date Time Temp Pulse Resp B/P Pulse Ox O2 Delivery O2 Flow Rate FiO2 10/16/16 08:15 Nasal Cannula 2.0 10/16/16 08:00 16 10/16/16 07:46 99.7 65 134/60 96 Intake and Output 10/15/16 10/15/16 10/16/16 15:00 23:00 07:00 Intake Total 100 ml 1175 ml 1325 ml Output Total 10 ml 680 ml 600 ml Balance 90 ml 495 ml 725 ml Exam Constitutional: alert Respiratory: clear to auscultation Cardiovascular: regular rate and rhythm Gastrointestinal: soft, + diverting colostomy No distended Musculoskeletal: nl extremities to inspection Results Result Diagram: 10/16/16 1005 10/16/16 1005 Results 24 hrs Laboratory Tests Test 10/15/16 12:25 10/15/16 18:01 10/15/16 20:36 10/16/16 00:36 Bedside Glucose 165 106 124 145 Test 10/16/16 05:51 10/16/16 08:20 10/16/16 10:05 Bedside Glucose 138 133 White Blood Count 8.1 Red Blood Count 3.52 L Hemoglobin 9.1 L Hematocrit 31.0 L Mean Corpuscular Volume 88.1 Mean Corpuscular Hemoglobin 25.9 L Mean Corpuscular Hemoglobin Concent 29.4 L Red Cell Distribution Width 15.9 H Platelet Count 343 Mean Platelet Volume 7.9 Neutrophils % 77.0 Lymphocytes % 14.4 L Monocytes % 6.3 Eosinophils % 1.5 Basophils % 0.4 Nucleated Red Blood Cells % 0.0 Neutrophils # 6.3 Lymphocytes # 1.2 Monocytes # 0.5 Eosinophils # 0.1 Basophils # 0.0 Nucleated Red Blood Cells # 0.0 Prothrombin Time 15.3 H Prothrombin Time Ratio 1.2 INR International Normalized Ratio 1.20 Activated Partial Thromboplast Time 36.4 H Sodium Level 139 Potassium Level 3.6 Chloride Level 104 Carbon Dioxide Level 29 Anion Gap 10 Blood Urea Nitrogen < 2 L Creatinine 0.38 L Glucose Level 166 Calcium Level 8.0 L Phosphorus Level 3.1 Magnesium Level 1.5 L Medications Medications Current Medications Miscellaneous Information 1 ea NOTE XX ; Start 10/09/16 at 23:45 Glucose (Glutose) 15 gm Q15M PRN PO DECREASED GLUCOSE; Start 10/09/16 at 23:45 Glucose (Glutose) 22.5 gm Q15M PRN PO DECREASED GLUCOSE; Start 10/09/16 at 23:45 Dextrose (D50w Syringe) 25 ml Q15M PRN IV DECREASED GLUCOSE; Start 10/09/16 at 23:45 Dextrose (D50w Syringe) 50 ml Q15M PRN IV DECREASED GLUCOSE; Start 10/09/16 at 23:45 Glucagon (Glucagen) 1 mg Q15M PRN IM DECREASED GLUCOSE; Start 10/09/16 at 23:45 Glucose (Glutose) 15 gm Q15M PRN BUCCAL DECREASED GLUCOSE; Start 10/09/16 at 23: 45 Metoclopramide HCl (Reglan) 10 mg Q6H PRN IV NAUSEA AND/OR VOMITING; Start 04/18 at 00:00 Morphine Sulfate 4 mg 4 mg Q3 PRN IV SEVERE PAIN LEVEL 7-10 Last administered on 10/13/16 13:36; Admin Dose 4 MG; Start 10/10/16 at 03:00 Piperacillin Sod/ Tazobactam Sod (Zosyn 3.375gm/ 100 ml (Pmx)) 100 ml @ 200 mls /hr Q6 IVPB Last administered on 10/16/16 05:45; Admin Dose 200 MLS/HR; Start 10/10/16 at 18:00 Acetaminophen/ Hydrocodone Bitart ([place] (10)) 1 tab Q4H PRN PO PAIN Last administered on 10/12/16 13:23; Admin Dose 1 TAB; Start 10/11/16 at 06:00; Status Future Hold Diphenhydramine HCl (Benadryl) 25 mg Q6H PRN IV ITCHING; Start 10/11/16 at 06: 00 Diagnostic Test (Pha) (Accu-Chek) 1 ea 02 XX ; Start 10/12/16 at 02:00 Ondansetron HCl (Zofran Inj) 4 mg Q6H PRN IV NAUSEA AND/OR VOMITING; Start at 19:00 Morphine Sulfate 2 MG/HR CONTINUOUS RATE 2... Q4PCA IV Last administered on 04:32; Admin Dose 30 MG; Start 10/13/16 at 19:00 Potassium Chloride/Dextrose/ Sod Cl 1,000 ml @ 125 mls/hr Q8H IV Last administered on 10/16/16 02:20; Admin Dose 125 MLS/HR; Start 10/13/16 at 18:58 Acetaminophen (Ofirmev 1000mg/ 100ml Iv) 100 ml @ 400 mls/hr Q6H PRN IVPB PAIN ; Start 10/13/16 at 19:00 Hydralazine HCl (Apresoline) 10 mg Q6H PRN IV SBP GREATER THAN 160 Last administered on 10/14/16 10:23; Admin Dose 10 MG; Start 10/14/16 at 10:30 Clonidine HCl (Catapres-Tts 1 Patch) 1 patch Q7D TRANSDERM Last administered on 10/14/16 11:19; Admin Dose 1 PATCH; Start 10/14/16 at 11:00 Pantoprazole (Protonix Iv) 40 mg DAILY@06 IV Last administered on 10/16/16 05: 45; Admin Dose 40 MG; Start 10/15/16 at 06:00 Ketorolac Tromethamine (Toradol) 30 mg Q6H IV Last administered on 10/16/16 08 :16; Admin Dose 30 MG; Start 10/14/16 at 13:30; Stop 10/16/16 at 13:29 Insulin Aspart (Novolog Insulin Pen) NOVOLOG *MILD* ALGORI... Q4 SC Last administered on 10/16/16t 00:39; Admin Dose 1 UNIT; Start 10/14/16 at 21:00 UGO BRYANT MD Oct 16, 2016 11:15
--- NOTE | 2016-10-16 11:17 | PN ---
Date/Time of Note Date/Time of Note DATE: 10/16/16 TIME: 11:10 Assessment/Plan VTE Prophylaxis VTE Prophylaxis Intervention: SCD's Lines/Catheters IV Catheter Type (from Nrsg): Central Line Central line still needed: Yes Urinary Cath still in place: Yes Reason Cath still needed: urinary retention Assessment/Plan Assessment/Plan Assessment * Sigmoid diverticulitis with abscess controlled Colovesical fistula, Exploratory laparotomy,incision and drainage,transverse loop colostomy * Hyperlipidemia * Major depression * Diabetes mellitus * Plan * continue present management * pain control * will follow up as needed Subjective 24 Hr Interval Summary Free Text/Dictation * Course reviewed with RN * patient seen and examined * Exploratory laparotomy * EL incision and drainage diverting colostomy * mild abdominal pain Exam/Review of Systems Vital Signs Vitals Vital Signs Date Time Temp Pulse Resp B/P Pulse Ox O2 Delivery O2 Flow Rate FiO2 10/16/16 08:15 Nasal Cannula 2.0 10/16/16 08:00 16 10/16/16 07:46 99.7 65 134/60 96 Intake and Output 10/15/16 10/15/16 10/16/16 15:00 23:00 07:00 Intake Total 100 ml 1175 ml 1325 ml Output Total 10 ml 680 ml 600 ml Balance 90 ml 495 ml 725 ml Exam Constitutional: alert Neck: supple Respiratory: clear to auscultation, diminished breath sounds Cardiovascular: nl pulses, regular rate and rhythm Gastrointestinal: soft, tender (diffuse/colostomy intact/incision dry,dressing intact) Results Result Diagram: 10/16/16 1005 10/16/16 1005 Results 24 hrs Laboratory Tests Test 10/15/16 12:25 10/15/16 18:01 10/15/16 20:36 10/16/16 00:36 Bedside Glucose 165 106 124 145 Test 10/16/16 05:51 10/16/16 08:20 10/16/16 10:05 Bedside Glucose 138 133 White Blood Count 8.1 Red Blood Count 3.52 L Hemoglobin 9.1 L Hematocrit 31.0 L Mean Corpuscular Volume 88.1 Mean Corpuscular Hemoglobin 25.9 L Mean Corpuscular Hemoglobin Concent 29.4 L Red Cell Distribution Width 15.9 H Platelet Count 343 Mean Platelet Volume 7.9 Neutrophils % 77.0 Lymphocytes % 14.4 L Monocytes % 6.3 Eosinophils % 1.5 Basophils % 0.4 Nucleated Red Blood Cells % 0.0 Neutrophils # 6.3 Lymphocytes # 1.2 Monocytes # 0.5 Eosinophils # 0.1 Basophils # 0.0 Nucleated Red Blood Cells # 0.0 Prothrombin Time 15.3 H Prothrombin Time Ratio 1.2 INR International Normalized Ratio 1.20 Activated Partial Thromboplast Time 36.4 H Sodium Level 139 Potassium Level 3.6 Chloride Level 104 Carbon Dioxide Level 29 Anion Gap 10 Blood Urea Nitrogen < 2 L Creatinine 0.38 L Glucose Level 166 Calcium Level 8.0 L Phosphorus Level 3.1 Magnesium Level 1.5 L Medications Medications Current Medications Miscellaneous Information 1 ea NOTE XX ; Start 10/09/16 at 23:45 Glucose (Glutose) 15 gm Q15M PRN PO DECREASED GLUCOSE; Start 10/09/16 at 23:45 Glucose (Glutose) 22.5 gm Q15M PRN PO DECREASED GLUCOSE; Start 10/09/16 at 23:45 Dextrose (D50w Syringe) 25 ml Q15M PRN IV DECREASED GLUCOSE; Start 10/09/16 at 23:45 Dextrose (D50w Syringe) 50 ml Q15M PRN IV DECREASED GLUCOSE; Start 10/09/16 at 23:45 Glucagon (Glucagen) 1 mg Q15M PRN IM DECREASED GLUCOSE; Start 10/09/16 at 23:45 Glucose (Glutose) 15 gm Q15M PRN BUCCAL DECREASED GLUCOSE; Start 10/09/16 at 23: 45 Metoclopramide HCl (Reglan) 10 mg Q6H PRN IV NAUSEA AND/OR VOMITING; Start 04/18 at 00:00 Morphine Sulfate 4 mg 4 mg Q3 PRN IV SEVERE PAIN LEVEL 7-10 Last administered on 10/13/16 13:36; Admin Dose 4 MG; Start 10/10/16 at 03:00 Piperacillin Sod/ Tazobactam Sod (Zosyn 3.375gm/ 100 ml (Pmx)) 100 ml @ 200 mls /hr Q6 IVPB Last administered on 10/16/16 05:45; Admin Dose 200 MLS/HR; Start 10/10/16 at 18:00 Acetaminophen/ Hydrocodone Bitart ([place] (10/325)) 1 tab Q4H PRN PO PAIN Last administered on 10/12/16 13:23; Admin Dose 1 TAB; Start 10/11/16 at 06:00; Status Future Hold Diphenhydramine HCl (Benadryl) 25 mg Q6H PRN IV ITCHING; Start 10/11/16 at 06: 00 Diagnostic Test (Pha) (Accu-Chek) 1 ea 02 XX ; Start 10/12/16 at 02:00 Ondansetron HCl (Zofran Inj) 4 mg Q6H PRN IV NAUSEA AND/OR VOMITING; Start at 19:00 Morphine Sulfate 2 MG/HR CONTINUOUS RATE 2... Q4PCA IV Last administered on 04:32; Admin Dose 30 MG; Start 10/13/16 at 19:00 Potassium Chloride/Dextrose/ Sod Cl 1,000 ml @ 125 mls/hr Q8H IV Last administered on 10/16/16 02:20; Admin Dose 125 MLS/HR; Start 10/13/16 at 18:58 Acetaminophen (Ofirmev 1000mg/ 100ml Iv) 100 ml @ 400 mls/hr Q6H PRN IVPB PAIN ; Start 10/13/16 at 19:00 Hydralazine HCl (Apresoline) 10 mg Q6H PRN IV SBP GREATER THAN 160 Last administered on 10/14/16 10:23; Admin Dose 10 MG; Start 10/14/16 at 10:30 Clonidine HCl (Catapres-Tts 1 Patch) 1 patch Q7D TRANSDERM Last administered on 10/14/16 11:19; Admin Dose 1 PATCH; Start 10/14/16 at 11:00 Pantoprazole (Protonix Iv) 40 mg DAILY@06 IV Last administered on 10/16/16 05: 45; Admin Dose 40 MG; Start 10/15/16 at 06:00 Ketorolac Tromethamine (Toradol) 30 mg Q6H IV Last administered on 10/16/16 08 :16; Admin Dose 30 MG; Start 10/14/16 at 13:30; Stop 10/16/16 at 13:29 Insulin Aspart (Novolog Insulin Pen) NOVOLOG *MILD* ALGORI... Q4 SC Last administered on 10/16/16 00:39; Admin Dose 1 UNIT; Start 10/14/16 at 21:00 BARBARA WHALEN MD Oct 16, 2016 11:17
[2016-10-16] MEDS ORDERED: MAGNESIUM SULFATE 2 GM/50 ML 50 ML IVPB ONE (11:30)
--- NOTE | 2016-10-16 11:56 | PN ---
Date/Time of Note Date/Time of Note DATE: 10/16/16 TIME: 11:55 Assessment/Plan VTE Prophylaxis VTE Prophylaxis Intervention: other Lines/Catheters IV Catheter Type (from Nrsg): Central Line Central line still needed: Yes Urinary Cath still in place: Yes Reason Cath still needed: skin wounds contaminated by urine Assessment/Plan Chief Complaint/Hosp Course - SP Exploratory laparotomy, I and D of pelvic abscess and diverting colostomy on 10/13/2016 - per surgery - NPO - ivf - Incentive spirometer WA - Hx diverticular abscess and rectovaginal fistula. - sp - Continue Zosyn - per GI consult - Hypertension- BP 150/70 NOW - will give Hydralazine 10 MG IVP q6h prn for SBP>160 - catapress patch 1 tts- Q 7 days - Lower gastrointestinal bleeding likely secondary to diverticulosis-stable - Hyperthyroidism - Weakness and numbness of the left lower extremity-stable - Diabetes-currently stable - Glycemic Control - Hypokalemia-replete, am labs - Hypomagnesium- replet Mag, am labs - SCDs for DVT - former smoker Problems: Subjective 24 Hr Interval Summary Free Text/Dictation Patient is resting comfortably Exam/Review of Systems Vital Signs Vitals Vital Signs Date Time Temp Pulse Resp B/P Pulse Ox O2 Delivery O2 Flow Rate FiO2 10/16/16 08:15 Nasal Cannula 2.0 10/16/16 08:00 16 10/16/16 07:46 99.7 65 134/60 96 Intake and Output 10/15/16 10/15/16 10/16/16 14:59 22:59 06:59 Intake Total 100 ml 1175 ml 1325 ml Output Total 10 ml 680 ml 600 ml Balance 90 ml 495 ml 725 ml Exam Constitutional: well developed Head: atraumatic, normocephalic Neck: supple Respiratory: diminished breath sounds Cardiovascular: regular rate and rhythm Gastrointestinal: non-tender, soft Extremities: normal pulses Results Result Diagram: 10/16/16 1005 10/16/16 1005 Results 24 hrs Laboratory Tests Test 10/15/16 12:25 10/15/16 18:01 10/15/16 20:36 10/16/16 00:36 Bedside Glucose 165 106 124 145 Test 10/16/16 05:51 10/16/16 08:20 10/16/16 10:05 Bedside Glucose 138 133 White Blood Count 8.1 Red Blood Count 3.52 L Hemoglobin 9.1 L Hematocrit 31.0 L Mean Corpuscular Volume 88.1 Mean Corpuscular Hemoglobin 25.9 L Mean Corpuscular Hemoglobin Concent 29.4 L Red Cell Distribution Width 15.9 H Platelet Count 343 Mean Platelet Volume 7.9 Neutrophils % 77.0 Lymphocytes % 14.4 L Monocytes % 6.3 Eosinophils % 1.5 Basophils % 0.4 Nucleated Red Blood Cells % 0.0 Neutrophils # 6.3 Lymphocytes # 1.2 Monocytes # 0.5 Eosinophils # 0.1 Basophils # 0.0 Nucleated Red Blood Cells # 0.0 Prothrombin Time 15.3 H Prothrombin Time Ratio 1.2 INR International Normalized Ratio 1.20 Activated Partial Thromboplast Time 36.4 H Sodium Level 139 Potassium Level 3.6 Chloride Level 104 Carbon Dioxide Level 29 Anion Gap 10 Blood Urea Nitrogen < 2 L Creatinine 0.38 L Glucose Level 166 Calcium Level 8.0 L Phosphorus Level 3.1 Magnesium Level 1.5 L Medications Medications Current Medications Miscellaneous Information 1 ea NOTE XX ; Start 10/09/16 at 23:45 Glucose (Glutose) 15 gm Q15M PRN PO DECREASED GLUCOSE; Start 10/09/16 at 23:45 Glucose (Glutose) 22.5 gm Q15M PRN PO DECREASED GLUCOSE; Start 10/09/16 at 23:45 Dextrose (D50w Syringe) 25 ml Q15M PRN IV DECREASED GLUCOSE; Start 10/09/16 at 23:45 Dextrose (D50w Syringe) 50 ml Q15M PRN IV DECREASED GLUCOSE; Start 10/09/16 at 23:45 Glucagon (Glucagen) 1 mg Q15M PRN IM DECREASED GLUCOSE; Start 10/09/16 at 23:45 Glucose (Glutose) 15 gm Q15M PRN BUCCAL DECREASED GLUCOSE; Start 10/09/16 at 23: 45 Metoclopramide HCl (Reglan) 10 mg Q6H PRN IV NAUSEA AND/OR VOMITING; Start 04/18 at 00:00 Morphine Sulfate 4 mg 4 mg Q3 PRN IV SEVERE PAIN LEVEL 7-10 Last administered on 10/13/16t 13:36; Admin Dose 4 MG; Start 10/10/16 at 03:00 Piperacillin Sod/ Tazobactam Sod (Zosyn 3.375gm/ 100 ml (Pmx)) 100 ml @ 200 mls /hr Q6 IVPB Last administered on 10/16/16 05:45; Admin Dose 200 MLS/HR; Start 10/10/16 at 18:00 Acetaminophen/ Hydrocodone Bitart ([place] (10/325)) 1 tab Q4H PRN PO PAIN Last administered on 10/12/16 13:23; Admin Dose 1 TAB; Start 10/11/16 at 06:00; Status Future Hold Diphenhydramine HCl (Benadryl) 25 mg Q6H PRN IV ITCHING; Start 10/11/16 at 06: 00 Diagnostic Test (Pha) (Accu-Chek) 1 ea 02 XX ; Start 10/12/16 at 02:00 Ondansetron HCl (Zofran Inj) 4 mg Q6H PRN IV NAUSEA AND/OR VOMITING; Start at 19:00 Morphine Sulfate 2 MG/HR CONTINUOUS RATE 2... Q4PCA IV Last administered on 04:32; Admin Dose 30 MG; Start 10/13/16 at 19:00 Potassium Chloride/Dextrose/ Sod Cl 1,000 ml @ 125 mls/hr Q8H IV Last administered on 10/16/16 02:20; Admin Dose 125 MLS/HR; Start 10/13/16 at 18:58 Acetaminophen (Ofirmev 1000mg/ 100ml Iv) 100 ml @ 400 mls/hr Q6H PRN IVPB PAIN ; Start 10/13/16 at 19:00 Hydralazine HCl (Apresoline) 10 mg Q6H PRN IV SBP GREATER THAN 160 Last administered on 10/14/16 10:23; Admin Dose 10 MG; Start 10/14/16 at 10:30 Clonidine HCl (Catapres-Tts 1 Patch) 1 patch Q7D TRANSDERM Last administered on 10/14/16 11:19; Admin Dose 1 PATCH; Start 10/14/16 at 11:00 Pantoprazole (Protonix Iv) 40 mg DAILY@06 IV Last administered on 10/16/16 05: 45; Admin Dose 40 MG; Start 10/15/16 at 06:00 Ketorolac Tromethamine (Toradol) 30 mg Q6H IV Last administered on 4/16/17at 08 :16; Admin Dose 30 MG; Start 10/14/16 at 13:30; Stop 10/16/16 at 13:29 Insulin Aspart NOVOLOG *MILD* ALGORI... Q4 SC Last administered on 10/16/16t 00 :39; Admin Dose 1 UNIT; Start 10/14/16 at 21:00 Magnesium Sulfate (Magnesium Sulfate 2 Gm/50 ml) 50 ml @ 25 mls/hr ONCE ONCE IVPB ; Start 10/16/16 at 11:30; Stop 10/16/16 at 13:29 JOHN SENA Oct 16, 2016 11:56
[2016-10-16 12:21] VITALS: BP 128/61; PULSE 68; RESP 16
--- NOTE | 2016-10-16 16:39 | PN ---
DATE: 10/16/2016 Postop day #3, status post laparotomy and placement of diverting loop colostomy. SUBJECTIVE: Feels better, has been out of bed in chair. OBJECTIVE GENERAL: Awake, alert, lying down in the bed. VITAL SIGNS: Temperature 98.4, heart rate 68, respirations 16, blood pressure 178/61, saturation 95% on 2 liters nasal cannula. ABDOMEN: Soft but tender. Bowel sounds hypoactive. Colostomy is not functioning yet. LABORATORY DATA: Sodium, potassium normal, BUN and creatinine normal. WBC 8100 with 77% neutrophils, hemoglobin 9.1, hematocrit 31. ASSESSMENT AND PLAN: Postoperative day #3 status post laparoscopic placement of colostomy. Colostomy is not functioning yet. Bowel sounds hypoactive. PLAN: decrease the pain medication. Continue current care. Encourage getting out of bed and walking around. Urine output is adequate. Dictated By: TICO PUCKETT MD PS/NTS Conf#: [id number] DID#: [id number] MTDD
[2016-10-16 17:00] VITALS: BP 126/59; RESP 16
[2016-10-16 19:00] VITALS: BP 131/59; RESP 20
[2016-10-16] MEDS: CEPASTAT LOZENGE MT PRN (21:25)
[2016-10-17] VITALS (7 sets, daily range): BP systolic 104–141; BP diastolic 55–65; PULSE 66–82; RESP 16–20
[2016-10-17] MEDS: PIPER-TAZO 3.375 GM IV (PMX) 100 ML IVPB SCH ×5 (00:24→23:29)
[2016-10-17] MEDS: INSULIN ASPART [NOVOLOG] 3 ML PEN SC SCH ×6 (01:00→20:50)
[2016-10-17] MEDS: morphine 1 MG/ML 30 ML (PCA) IV SCH ×3 (01:13→19:45)
[2016-10-17] MEDS: ACCUCHECK AT 2AM (Patients on SS coverage) XX SCH (02:00)
[2016-10-17] MEDS: D5W-0.45 NACL + KCL 20 MEQ 1,000 ML IV SCH ×3 (03:12→18:21)
[2016-10-17] MEDS: PANTOPRAZOLE 40 MG INJ IV SCH (05:32)
[2016-10-17 06:04] LABS: ADD SCAN DIFF NO
[2016-10-17 06:15] LABS: BASOPHILS % 0.4 % (0.0-2.0); EOSINOPHILS # 0.1 10^3/ul (0.0-0.5); EOSINOPHILS % 1.4 % (0.0-7.0); HEMATOCRIT 30.4 % (37.0-47.0); HEMOGLOBIN 9.1 g/dl (12.0-16.0); LYMPHOCYTES # 1.6 10^3/ul (0.8-2.9); LYMPHOCYTES % 17.1 % (15.0-51.0); MEAN CORPUSCULAR HEMOGLOBIN 26.1 pg (29.0-33.0); MEAN CORPUSCULAR HGB CONC 29.9 g/dl (32.0-37.0); MEAN CORPUSCULAR VOLUME 87.4 fl (82.0-101.0); MEAN PLATELET VOLUME 7.9 fl (7.4-10.4); MONOCYTE # 0.6 10^3/ul (0.3-0.9); MONOCYTES % 6.8 % (0.0-11.0); NEUTROPHIL # 6.8 10^3/ul (1.6-7.5); NEUTROPHILS % 73.9 % (39.0-77.0); PLATELET COUNT 401 10^3/UL (140-415); RED BLOOD COUNT 3.48 10^6/ul (4.20-5.40); RED CELL DISTRIBUTION WIDTH 15.8 % (11.5-14.5); WHITE BLOOD COUNT 9.2 10^3/ul (4.8-10.8)
[2016-10-17 06:31] LABS: ANION GAP 5 (8-16); CARBON DIOXIDE 31 mmol/L (21-31); CHLORIDE 102 mmol/L (97-110); CREATININE 0.36 mg/dl (0.44-1.00); GLUCOSE 140 mg/dl (70-220); POTASSIUM 3.9 mmol/L (3.5-5.1); SODIUM 134 mmol/L (135-144)
[2016-10-17 06:35] LABS: BLOOD UREA NITROGEN < 2 mg/dl (7-20)
[2016-10-17] MEDS: LEVOTHYROXINE 150 MCG TAB PO SCH (06:40)
--- NOTE | 2016-10-17 09:42 | PN ---
Date/Time of Note Date/Time of Note DATE: 10/17/16 TIME: 09:38 Assessment/Plan VTE Prophylaxis VTE Prophylaxis Intervention: SCD's Lines/Catheters IV Catheter Type (from Nrsg): Central Line Central line still needed: Yes (IV abx, IVF ) Urinary Cath still in place: Yes Reason Cath still needed: other (indicate) (post op, colovesical fistula ) Assessment/Plan Assessment/Plan 1. Acute diverticulitis with perforation status post exploratory laparotomy and placement of diverting transverse colostomy for diversion of fecal stream. The patient also has colovesical fistula, diverticulitis and diverticular abscesses. IV abx zosyn,ID following 2. Lower gastrointestinal bleeding likely secondary to diverticulosis-stable 3. Hypothyroidism Continue Rx 4. Weakness and numbness of the left lower extremity-stable 5. Diabetes-currently stable Continue sliding-scale 6. Hypokalemia-replete K Prophylaxis: SCDs Subjective 24 Hr Interval Summary Free Text/Dictation Na 134, BP stable, c/o abd pain, on NG tube, still NPO Exam/Review of Systems Vital Signs Vitals Vital Signs Date Time Temp Pulse Resp B/P Pulse Ox O2 Delivery O2 Flow Rate FiO2 10/17/16 08:40 98.2 66 18 132/60 95 Nasal Cannula 2.0 Intake and Output 10/16/16 10/16/16 10/17/16 15:00 23:00 07:00 Intake Total 100 ml 1350 ml 1200 ml Output Total 425 ml 1150 ml Balance 100 ml 925 ml 50 ml Exam Constitutional: alert Respiratory: clear to auscultation Cardiovascular: regular rate and rhythm Gastrointestinal: soft, + diverting colostomy No distended Musculoskeletal: nl extremities to inspection Results Result Diagram: 10/17/16 0529 10/17/16 0529 Results 24 hrs Laboratory Tests Test 10/16/16 10:05 10/16/16 12:29 10/16/16 17:43 10/16/16 21:03 White Blood Count 8.1 Red Blood Count 3.52 L Hemoglobin 9.1 L Hematocrit 31.0 L Mean Corpuscular Volume 88.1 Mean Corpuscular Hemoglobin 25.9 L Mean Corpuscular Hemoglobin Concent 29.4 L Red Cell Distribution Width 15.9 H Platelet Count 343 Mean Platelet Volume 7.9 Neutrophils % 77.0 Lymphocytes % 14.4 L Monocytes % 6.3 Eosinophils % 1.5 Basophils % 0.4 Nucleated Red Blood Cells % 0.0 Neutrophils # 6.3 Lymphocytes # 1.2 Monocytes # 0.5 Eosinophils # 0.1 Basophils # 0.0 Nucleated Red Blood Cells # 0.0 Prothrombin Time 15.3 H Prothrombin Time Ratio 1.2 INR International Normalized Ratio 1.20 Activated Partial Thromboplast Time 36.4 H Sodium Level 139 Potassium Level 3.6 Chloride Level 104 Carbon Dioxide Level 29 Anion Gap 10 Blood Urea Nitrogen < 2 L Creatinine 0.38 L Glucose Level 166 Calcium Level 8.0 L Phosphorus Level 3.1 Magnesium Level 1.5 L Bedside Glucose 135 97 121 Test 10/17/16 01:38 10/17/16 05:27 10/17/16 05:29 10/17/16 05:35 Bedside Glucose 129 156 Magnesium Level 1.4 L White Blood Count 9.2 Red Blood Count 3.48 L Hemoglobin 9.1 L Hematocrit 30.4 L Mean Corpuscular Volume 87.4 Mean Corpuscular Hemoglobin 26.1 L Mean Corpuscular Hemoglobin Concent 29.9 L Red Cell Distribution Width 15.8 H Platelet Count 401 Mean Platelet Volume 7.9 Neutrophils % 73.9 Lymphocytes % 17.1 Monocytes % 6.8 Eosinophils % 1.4 Basophils % 0.4 Nucleated Red Blood Cells % 0.0 Neutrophils # 6.8 Lymphocytes # 1.6 Monocytes # 0.6 Eosinophils # 0.1 Basophils # 0.0 Nucleated Red Blood Cells # 0.0 Sodium Level 134 L Potassium Level 3.9 Chloride Level 102 Carbon Dioxide Level 31 Anion Gap 5 L Blood Urea Nitrogen < 2 L Creatinine 0.36 L Glucose Level 140 Calcium Level 8.0 L Test 10/17/16 09:03 Bedside Glucose 140 Medications Medications Current Medications Miscellaneous Information 1 ea NOTE XX ; Start 10/09/16 at 23:45 Glucose (Glutose) 15 gm Q15M PRN PO DECREASED GLUCOSE; Start 10/09/16 at 23:45 Glucose (Glutose) 22.5 gm Q15M PRN PO DECREASED GLUCOSE; Start 10/09/16 at 23:45 Dextrose (D50w Syringe) 25 ml Q15M PRN IV DECREASED GLUCOSE; Start 10/09/16 at 23:45 Dextrose (D50w Syringe) 50 ml Q15M PRN IV DECREASED GLUCOSE; Start 10/09/16 at 23:45 Glucagon (Glucagen) 1 mg Q15M PRN IM DECREASED GLUCOSE; Start 10/09/16 at 23:45 Glucose (Glutose) 15 gm Q15M PRN BUCCAL DECREASED GLUCOSE; Start 10/09/16 at 23: 45 Metoclopramide HCl (Reglan) 10 mg Q6H PRN IV NAUSEA AND/OR VOMITING; Start 04/18 at 00:00 Morphine Sulfate 4 mg 4 mg Q3 PRN IV SEVERE PAIN LEVEL 7-10 Last administered on 10/13/16 13:36; Admin Dose 4 MG; Start 10/10/16 at 03:00 Piperacillin Sod/ Tazobactam Sod (Zosyn 3.375gm/ 100 ml (Pmx)) 100 ml @ 200 mls /hr Q6 IVPB Last administered on 10/17/16 05:32; Admin Dose 200 MLS/HR; Start 10/10/16 at 18:00 Acetaminophen/ Hydrocodone Bitart ([place] (10/325)) 1 tab Q4H PRN PO PAIN Last administered on 10/12/16 13:23; Admin Dose 1 TAB; Start 10/11/16 at 06:00; Status Future Hold Diphenhydramine HCl (Benadryl) 25 mg Q6H PRN IV ITCHING; Start 10/11/16 at 06: 00 Diagnostic Test (Pha) (Accu-Chek) 1 ea 02 XX ; Start 10/12/16 at 02:00 Ondansetron HCl (Zofran Inj) 4 mg Q6H PRN IV NAUSEA AND/OR VOMITING; Start at 19:00 Morphine Sulfate 2 MG DOSE DEM... Q4PCA IV Last administered on 10/17/16 01:13 ; Admin Dose 30 MG; Start 10/13/16 at 19:00 Potassium Chloride/Dextrose/ Sod Cl 1,000 ml @ 125 mls/hr Q8H IV Last administered on 10/17/16 03:12; Admin Dose 125 MLS/HR; Start 10/13/16 at 18:58 Acetaminophen (Ofirmev 1000mg/ 100ml Iv) 100 ml @ 400 mls/hr Q6H PRN IVPB PAIN ; Start 10/13/16 at 19:00 Hydralazine HCl (Apresoline) 10 mg Q6H PRN IV SBP GREATER THAN 160 Last administered on 10/14/16 10:23; Admin Dose 10 MG; Start 10/14/16 at 10:30 Clonidine HCl (Catapres-Tts 1 Patch) 1 patch Q7D TRANSDERM Last administered on 10/14/16 11:19; Admin Dose 1 PATCH; Start 10/14/16 at 11:00 Pantoprazole (Protonix Iv) 40 mg DAILY@06 IV Last administered on 10/17/16 05: 32; Admin Dose 40 MG; Start 10/15/16 at 06:00 Insulin Aspart (Novolog Insulin Pen) NOVOLOG *MILD* ALGORI... Q4 SC Last administered on 10/17/16 05:42; Admin Dose 1 UNIT; Start 10/14/16 at 21:00 Phenol (Cepastat Lozenge) 1 lozenge Q4H PRN MT pain Last administered on 21:25; Admin Dose 1 LOZENGE; Start 10/16/16 at 14:00 UGO BRYANT MD Oct 17, 2016 09:42
[2016-10-17] MEDS: CEPASTAT LOZENGE MT PRN (12:45)
[2016-10-17] MEDS ORDERED: MAGNESIUM SULFATE 4 GM/100 ML 100 ML IVPB ONE (13:30)
--- NOTE | 2016-10-17 14:42 | PN ---
Date/Time of Note Date/Time of Note DATE: 10/17/16 TIME: 14:32 Assessment/Plan VTE Prophylaxis VTE Prophylaxis Intervention: SCD's Lines/Catheters IV Catheter Type (from Nrsg): Central Line Central line still needed: Yes Urinary Cath still in place: Yes Reason Cath still needed: urinary retention Assessment/Plan Chief Complaint/Hosp Course Assessment and plan: -Sigmoid diverticulitis with abscess, Colovesical fistula, S/P Exploratory laparotomy,incision and drainage of pelvic abscess,transverse loop colostomy by Dr. Jiménez. Continue to follow-up surgical recommendations. Continue morphine STRUCTURAL DRAFTSMAN for pain and Zofran for nausea. -Diabetes mellitus type II, continue NovoLog per mild ALGORITHM sliding scale every 4 hours -Hyperlipidemia -Hypothyroidism, continue Synthroid. - HTN, continue Catapres patch -Depression -Hypomagnesemia, magnesium replacement ordered. Continue SCDs for deep venous thrombosis prophylaxis. Further recommendations based on clinical course. Plan of care discussed with Dr. Maldonado. Problems: Subjective 24 Hr Interval Summary Free Text/Dictation Patient is awake alert complains of postoperative pain uses STRUCTURAL DRAFTSMAN morphine successfully, NG tube to low intermittent wall suctioning, patient was able to get out of bed into the chair. Exam/Review of Systems Vital Signs Vitals Vital Signs Date Time Temp Pulse Resp B/P Pulse Ox O2 Delivery O2 Flow Rate FiO2 10/17/16 13:32 2.0 10/17/16 12:00 99.2 82 18 123/58 96 Nasal Cannula Intake and Output 10/16/16 10/16/16 10/17/16 15:00 23:00 07:00 Intake Total 100 ml 1350 ml 1200 ml Output Total 425 ml 1150 ml Balance 100 ml 925 ml 50 ml Exam Constitutional: alert, oriented Psych: no complaints Head: atraumatic, normocephalic Eyes: nl conjunctiva ENMT: nl external ears & nose Neck: non-tender, supple Respiratory: clear to auscultation, normal air movement Cardiovascular: nl pulses, regular rate and rhythm Gastrointestinal: other (Status post surgery), soft Musculoskeletal: nl extremities to inspection Extremities: normal pulses Neurological: [employer] II-XII intact Results Result Diagram: 10/17/16 0529 10/17/16 0529 Results 24 hrs Laboratory Tests Test 10/16/16 17:43 10/16/16 21:03 10/17/16 01:38 10/17/16 05:27 Bedside Glucose 97 121 129 Magnesium Level 1.4 L Test 10/17/16 05:29 10/17/16 05:35 10/17/16 09:03 10/17/16 11:55 White Blood Count 9.2 Red Blood Count 3.48 L Hemoglobin 9.1 L Hematocrit 30.4 L Mean Corpuscular Volume 87.4 Mean Corpuscular Hemoglobin 26.1 L Mean Corpuscular Hemoglobin Concent 29.9 L Red Cell Distribution Width 15.8 H Platelet Count 401 Mean Platelet Volume 7.9 Neutrophils % 73.9 Lymphocytes % 17.1 Monocytes % 6.8 Eosinophils % 1.4 Basophils % 0.4 Nucleated Red Blood Cells % 0.0 Neutrophils # 6.8 Lymphocytes # 1.6 Monocytes # 0.6 Eosinophils # 0.1 Basophils # 0.0 Nucleated Red Blood Cells # 0.0 Sodium Level 134 L Potassium Level 3.9 Chloride Level 102 Carbon Dioxide Level 31 Anion Gap 5 L Blood Urea Nitrogen < 2 L Creatinine 0.36 L Glucose Level 140 Calcium Level 8.0 L Bedside Glucose 156 140 161 Medications Medications Current Medications Miscellaneous Information 1 ea NOTE XX ; Start 10/09/16 at 23:45 Glucose (Glutose) 15 gm Q15M PRN PO DECREASED GLUCOSE; Start 10/09/16 at 23:45 Glucose (Glutose) 22.5 gm Q15M PRN PO DECREASED GLUCOSE; Start 10/09/16 at 23:45 Dextrose (D50w Syringe) 25 ml Q15M PRN IV DECREASED GLUCOSE; Start 10/09/16 at 23:45 Dextrose (D50w Syringe) 50 ml Q15M PRN IV DECREASED GLUCOSE; Start 10/09/16 at 23:45 Glucagon (Glucagen) 1 mg Q15M PRN IM DECREASED GLUCOSE; Start 10/09/16 at 23:45 Glucose (Glutose) 15 gm Q15M PRN BUCCAL DECREASED GLUCOSE; Start 10/09/16 at 23: 45 Metoclopramide HCl (Reglan) 10 mg Q6H PRN IV NAUSEA AND/OR VOMITING; Start 04/18 at 00:00 Morphine Sulfate 4 mg 4 mg Q3 PRN IV SEVERE PAIN LEVEL 7-10 Last administered on 10/13/16t 13:36; Admin Dose 4 MG; Start 10/10/16 at 03:00 Piperacillin Sod/ Tazobactam Sod (Zosyn 3.375gm/ 100 ml (Pmx)) 100 ml @ 200 mls /hr Q6 IVPB Last administered on 10/17/16 11:59; Admin Dose 200 MLS/HR; Start 10/10/16 at 18:00 Acetaminophen/ Hydrocodone Bitart ([place] (10/325)) 1 tab Q4H PRN PO PAIN Last administered on 10/12/16 13:23; Admin Dose 1 TAB; Start 10/11/16 at 06:00; Status Future Hold Diphenhydramine HCl (Benadryl) 25 mg Q6H PRN IV ITCHING; Start 10/11/16 at 06: 00 Diagnostic Test (Pha) (Accu-Chek) 1 ea 02 XX ; Start 10/12/16 at 02:00 Ondansetron HCl (Zofran Inj) 4 mg Q6H PRN IV NAUSEA AND/OR VOMITING; Start at 19:00 Morphine Sulfate 2 MG DOSE DEM... Q4PCA IV Last administered on 10/17/16 11:31 ; Admin Dose 30 MG; Start 10/13/16 at 19:00 Potassium Chloride/Dextrose/ Sod Cl 1,000 ml @ 125 mls/hr Q8H IV Last administered on 10/17/16 12:00; Admin Dose 125 MLS/HR; Start 10/13/16 at 18:58 Acetaminophen (Ofirmev 1000mg/ 100ml Iv) 100 ml @ 400 mls/hr Q6H PRN IVPB PAIN ; Start 10/13/16 at 19:00 Hydralazine HCl (Apresoline) 10 mg Q6H PRN IV SBP GREATER THAN 160 Last administered on 10/14/16 10:23; Admin Dose 10 MG; Start 10/14/16 at 10:30 Clonidine HCl (Catapres-Tts 1 Patch) 1 patch Q7D TRANSDERM Last administered on 10/14/16 11:19; Admin Dose 1 PATCH; Start 10/14/16 at 11:00 Pantoprazole (Protonix Iv) 40 mg DAILY@06 IV Last administered on 10/17/16 05: 32; Admin Dose 40 MG; Start 10/15/16 at 06:00 Insulin Aspart (Novolog Insulin Pen) NOVOLOG *MILD* ALGORI... Q4 SC Last administered on 10/17/16 12:02; Admin Dose 1 UNIT; Start 10/14/16 at 21:00 Phenol 1 lozenge 1 lozenge Q4H PRN MT pain Last administered on 10/17/16 12:45 ; Admin Dose 1 LOZENGE; Start 10/16/16 at 14:00 Magnesium Sulfate (Magnesium Sulfate 4 Gm/100 ml) 100 ml @ 25 mls/hr ONCE ONCE IVPB Last administered on 10/17/16 13:40; Admin Dose 25 MLS/HR; Start at 13:30; Stop 10/17/16 at 17:29 ANUJ CHANG Oct 17, 2016 14:42
--- NOTE | 2016-10-17 15:59 | PN ---
Date/Time of Note Date/Time of Note DATE: 10/17/16 TIME: 15:56 Assessment/Plan VTE Prophylaxis VTE Prophylaxis Intervention: SCD's Lines/Catheters IV Catheter Type (from Nrsg): Central Line Central line still needed: Yes Urinary Cath still in place: Yes Reason Cath still needed: urinary retention Assessment/Plan Assessment/Plan Sigmoid diverticulitis with abscess controlled Colovesical fistula, Exploratory laparotomy,incision and drainage,transverse loop colostomy * Hyperlipidemia * Major depression * Diabetes mellitus * Plan * continue present management * pain control * will follow up as needed Subjective 24 Hr Interval Summary Free Text/Dictation * Course reviewed wit RN * patient seen and examined * still with abdominal pain mild * s/p el I and D abscess transverse loop colostomy Exam/Review of Systems Vital Signs Vitals Vital Signs Date Time Temp Pulse Resp B/P Pulse Ox O2 Delivery O2 Flow Rate FiO2 10/17/16 13:32 2.0 10/17/16 12:00 99.2 82 18 123/58 96 Nasal Cannula Intake and Output 10/16/16 10/16/16 10/17/16 15:00 23:00 07:00 Intake Total 100 ml 1350 ml 1200 ml Output Total 425 ml 1150 ml Balance 100 ml 925 ml 50 ml Exam Constitutional: alert Neck: supple Respiratory: clear to auscultation, normal air movement Cardiovascular: nl pulses, regular rate and rhythm Gastrointestinal: soft, tender (mild.incision with dressing,colostomy in placed ) Results Result Diagram: 10/17/16 0529 10/17/16 0529 Results 24 hrs Laboratory Tests Test 10/16/16 17:43 10/16/16 21:03 10/17/16 01:38 10/17/16 05:27 Bedside Glucose 97 121 129 Magnesium Level 1.4 L Test 10/17/16 05:29 10/17/16 05:35 10/17/16 09:03 10/17/16 11:55 White Blood Count 9.2 Red Blood Count 3.48 L Hemoglobin 9.1 L Hematocrit 30.4 L Mean Corpuscular Volume 87.4 Mean Corpuscular Hemoglobin 26.1 L Mean Corpuscular Hemoglobin Concent 29.9 L Red Cell Distribution Width 15.8 H Platelet Count 401 Mean Platelet Volume 7.9 Neutrophils % 73.9 Lymphocytes % 17.1 Monocytes % 6.8 Eosinophils % 1.4 Basophils % 0.4 Nucleated Red Blood Cells % 0.0 Neutrophils # 6.8 Lymphocytes # 1.6 Monocytes # 0.6 Eosinophils # 0.1 Basophils # 0.0 Nucleated Red Blood Cells # 0.0 Sodium Level 134 L Potassium Level 3.9 Chloride Level 102 Carbon Dioxide Level 31 Anion Gap 5 L Blood Urea Nitrogen < 2 L Creatinine 0.36 L Glucose Level 140 Calcium Level 8.0 L Bedside Glucose 156 140 161 Medications Medications Current Medications Miscellaneous Information 1 ea NOTE XX ; Start 10/09/16 at 23:45 Glucose (Glutose) 15 gm Q15M PRN PO DECREASED GLUCOSE; Start 10/09/16 at 23:45 Glucose (Glutose) 22.5 gm Q15M PRN PO DECREASED GLUCOSE; Start 10/09/16 at 23:45 Dextrose (D50w Syringe) 25 ml Q15M PRN IV DECREASED GLUCOSE; Start 10/09/16 at 23:45 Dextrose (D50w Syringe) 50 ml Q15M PRN IV DECREASED GLUCOSE; Start 10/09/16 at 23:45 Glucagon (Glucagen) 1 mg Q15M PRN IM DECREASED GLUCOSE; Start 10/09/16 at 23:45 Glucose (Glutose) 15 gm Q15M PRN BUCCAL DECREASED GLUCOSE; Start 10/09/16 at 23: 45 Metoclopramide HCl (Reglan) 10 mg Q6H PRN IV NAUSEA AND/OR VOMITING; Start 04/18 at 00:00 Morphine Sulfate 4 mg 4 mg Q3 PRN IV SEVERE PAIN LEVEL 7-10 Last administered on 10/13/16 13:36; Admin Dose 4 MG; Start 10/10/16 at 03:00 Piperacillin Sod/ Tazobactam Sod (Zosyn 3.375gm/ 100 ml (Pmx)) 100 ml @ 200 mls /hr Q6 IVPB Last administered on 10/17/16 11:59; Admin Dose 200 MLS/HR; Start 10/10/16 at 18:00 Acetaminophen/ Hydrocodone Bitart ([place] (10325)) 1 tab Q4H PRN PO PAIN Last administered on 10/12/16 13:23; Admin Dose 1 TAB; Start 10/11/16 at 06:00; Status Future Hold Diphenhydramine HCl (Benadryl) 25 mg Q6H PRN IV ITCHING; Start 10/11/16 at 06: 00 Diagnostic Test (Pha) (Accu-Chek) 1 ea 02 XX ; Start 10/12/16 at 02:00 Ondansetron HCl (Zofran Inj) 4 mg Q6H PRN IV NAUSEA AND/OR VOMITING; Start at 19:00 Morphine Sulfate 2 MG DOSE DEM... Q4PCA IV Last administered on 10/17/16 11:31 ; Admin Dose 30 MG; Start 10/13/16 at 19:00 Potassium Chloride/Dextrose/ Sod Cl 1,000 ml @ 125 mls/hr Q8H IV Last administered on 10/17/16 12:00; Admin Dose 125 MLS/HR; Start 10/13/16 at 18:58 Acetaminophen (Ofirmev 1000mg/ 100ml Iv) 100 ml @ 400 mls/hr Q6H PRN IVPB PAIN ; Start 10/13/16 at 19:00 Hydralazine HCl (Apresoline) 10 mg Q6H PRN IV SBP GREATER THAN 160 Last administered on 10/14/16 10:23; Admin Dose 10 MG; Start 10/14/16 at 10:30 Clonidine HCl (Catapres-Tts 1 Patch) 1 patch Q7D TRANSDERM Last administered on 10/14/16 11:19; Admin Dose 1 PATCH; Start 10/14/16 at 11:00 Pantoprazole (Protonix Iv) 40 mg DAILY@06 IV Last administered on 10/17/16 05: 32; Admin Dose 40 MG; Start 10/15/16 at 06:00 Insulin Aspart (Novolog Insulin Pen) NOVOLOG *MILD* ALGORI... Q4 SC Last administered on 10/17/16 12:02; Admin Dose 1 UNIT; Start 10/14/16 at 21:00 Phenol 1 lozenge 1 lozenge Q4H PRN MT pain Last administered on 10/17/16 12:45 ; Admin Dose 1 LOZENGE; Start 10/16/16 at 14:00 Magnesium Sulfate (Magnesium Sulfate 4 Gm/100 ml) 100 ml @ 25 mls/hr ONCE ONCE IVPB Last administered on 10/17/16 13:40; Admin Dose 25 MLS/HR; Start at 13:30; Stop 10/17/16 at 17:29 Levothyroxine Sodium (Synthroid Iv) 75 mcg DAILY@06 IV ; Start 10/18/16 at 06:00 BARBARA WHALEN MD Oct 17, 2016 15:59
--- NOTE | 2016-10-17 19:47 | PN ---
DATE: SUBJECTIVE: Postop day #4. Feels better. OBJECTIVE: VITAL SIGNS: 99.2, heart rate 82, respirations 18, blood pressure 123/58, saturation 96% on 2 liter s nasal cannula. LABORATORY DATA: Sodium, potassium is normal. BUN, creatinine is normal. Magnesium and calcium lo w. WBC 9200 with 73% neutrophils. Hemoglobin 9.1, hematocrit 30.4 and stable. NG tube in place. NG tube drainage 90 mL per 24 hours. ABDOMEN: Soft. Right lower quadrant and right upper quadrant more tender than the left side. Kennedy stomy was inspected. It is viable, but there is no function yet. EXTREMITIES: Lower extremity, no calf tenderness. GENITOURINARY: Bird catheter is in place. The patient has been out of bed in chair, but did not walk. It was difficult for her to walk withou t a walker because at home she uses a walker to walk. ASSESSMENT: A 61-year-old female with diverticulitis, diverticular abscess, exploratory laparotomy, placement of diverting transverse colostomy postoperative day #4. The patient is stable. Colostom y is not functioning yet. Bidr catheter and SCDs in place. Pain adequate. The patient on antibio tic. PLAN: Continue current care. Dictated By: TICO PUCKETT MD PS/NTS Conf#: [id number] DID#: [id number] CC: NOAH HAMILTON MD;*EndCC*
[2016-10-18] MEDS: INSULIN ASPART [NOVOLOG] 3 ML PEN SC SCH ×6 (01:09→20:28)
[2016-10-18] MEDS: ACCUCHECK AT 2AM (Patients on SS coverage) XX SCH (01:23)
[2016-10-18] MEDS: D5W-0.45 NACL + KCL 20 MEQ 1,000 ML IV SCH ×4 (02:08→22:21)
[2016-10-18] MEDS: morphine 1 MG/ML 30 ML (PCA) IV SCH ×3 (04:37→23:49)
[2016-10-18 05:43] LABS: ANION GAP 6 (8-16); CALCIUM 8.1 mg/dl (8.4-10.2); CARBON DIOXIDE 32 mmol/L (21-31); CHLORIDE 102 mmol/L (97-110); CREATININE 0.36 mg/dl (0.44-1.00); GLUCOSE 158 mg/dl (70-220); POTASSIUM 3.6 mmol/L (3.5-5.1); SODIUM 136 mmol/L (135-144)
[2016-10-18 05:55] LABS: BLOOD UREA NITROGEN < 2 mg/dl (7-20)
[2016-10-18] MEDS: LEVOTHYROXINE 100 MCG VIAL IV SCH (06:12)
[2016-10-18] MEDS: PANTOPRAZOLE 40 MG INJ IV SCH (06:12)
[2016-10-18] MEDS: PIPER-TAZO 3.375 GM IV (PMX) 100 ML IVPB SCH ×4 (06:12→23:44)
[2016-10-18 07:36] VITALS: BP 110/56; RESP 18
--- NOTE | 2016-10-18 09:53 | PN ---
Date/Time of Note Date/Time of Note DATE: 10/18/16 TIME: 09:49 Assessment/Plan VTE Prophylaxis VTE Prophylaxis Intervention: SCD's Lines/Catheters IV Catheter Type (from Nrsg): Central Line Central line still needed: Yes (IV abx ) Urinary Cath still in place: Yes Reason Cath still needed: other (indicate) (pt has colovesical fistula ) Assessment/Plan Assessment/Plan 1. Acute diverticulitis with perforation causign diverticular abscess status post exploratory laparotomy and placement of diverting transverse colostomy for diversion of fecal stream. The patient also has colovesical fistula, IV abx zosyn,ID following 2. Lower gastrointestinal bleeding likely secondary to diverticulosis-stable 3. Hypothyroidism Continue Rx 4. Weakness and numbness of the left lower extremity-stable 5. Diabetes-currently stable Continue sliding-scale 6. Hypokalemia-repleted yesterda, today K stable 7. hypomagnesemia- magnesium sulfate 2 gram IV x 1 now Prophylaxis: SCDs Subjective 24 Hr Interval Summary Free Text/Dictation still NPO, c/o abdominal pain, controlled current regimen, G surg following Exam/Review of Systems Vital Signs Vitals Vital Signs Date Time Temp Pulse Resp B/P Pulse Ox O2 Delivery O2 Flow Rate FiO2 10/18/16 07:36 99.8 71 18 110/56 93 10/18/16 04:00 2.0 10/17/16 20:07 Nasal Cannula Intake and Output 10/17/16 10/17/16 10/18/16 14:59 22:59 06:59 Intake Total 1100 ml 725 ml 1575 ml Output Total 1500 ml 200 ml Balance 1100 ml -775 ml 1375 ml Exam Constitutional: alert Respiratory: clear to auscultation Cardiovascular: regular rate and rhythm Gastrointestinal: soft, + diverting colostomy No distended Musculoskeletal: nl extremities to inspection Results Result Diagram: 10/17/16 0529 10/18/16 0458 Results 24 hrs Laboratory Tests Test 10/17/16 11:55 10/17/16 17:26 10/17/16 20:46 10/18/16 01:04 Bedside Glucose 161 137 150 146 Test 10/18/16 04:36 10/18/16 04:58 10/18/16 09:34 Bedside Glucose 160 152 Sodium Level 136 Potassium Level 3.6 Chloride Level 102 Carbon Dioxide Level 32 H Anion Gap 6 L Blood Urea Nitrogen < 2 L Creatinine 0.36 L Glucose Level 158 Calcium Level 8.1 L Magnesium Level 1.6 L Medications Medications Current Medications Miscellaneous Information 1 ea NOTE XX ; Start 10/09/16 at 23:45 Glucose (Glutose) 15 gm Q15M PRN PO DECREASED GLUCOSE; Start 10/09/16 at 23:45 Glucose (Glutose) 22.5 gm Q15M PRN PO DECREASED GLUCOSE; Start 10/09/16 at 23:45 Dextrose (D50w Syringe) 25 ml Q15M PRN IV DECREASED GLUCOSE; Start 10/09/16 at 23:45 Dextrose (D50w Syringe) 50 ml Q15M PRN IV DECREASED GLUCOSE; Start 10/09/16 at 23:45 Glucagon (Glucagen) 1 mg Q15M PRN IM DECREASED GLUCOSE; Start 10/09/16 at 23:45 Glucose (Glutose) 15 gm Q15M PRN BUCCAL DECREASED GLUCOSE; Start 10/09/16 at 23: 45 Metoclopramide HCl (Reglan) 10 mg Q6H PRN IV NAUSEA AND/OR VOMITING; Start 04/18 at 00:00 Morphine Sulfate 4 mg 4 mg Q3 PRN IV SEVERE PAIN LEVEL 7-10 Last administered on 10/13/16 13:36; Admin Dose 4 MG; Start 10/10/16 at 03:00 Piperacillin Sod/ Tazobactam Sod (Zosyn 3.375gm/ 100 ml (Pmx)) 100 ml @ 200 mls /hr Q6 IVPB Last administered on 10/18/16 06:12; Admin Dose 200 MLS/HR; Start 10/10/16 at 18:00 Acetaminophen/ Hydrocodone Bitart ([place] (10/325)) 1 tab Q4H PRN PO PAIN Last administered on 10/12/16 13:23; Admin Dose 1 TAB; Start 10/11/16 at 06:00; Status Future Hold Diphenhydramine HCl (Benadryl) 25 mg Q6H PRN IV ITCHING; Start 10/11/16 at 06: 00 Diagnostic Test (Pha) (Accu-Chek) 1 ea 02 XX ; Start 10/12/16 at 02:00 Ondansetron HCl (Zofran Inj) 4 mg Q6H PRN IV NAUSEA AND/OR VOMITING; Start at 19:00 Morphine Sulfate 2 MG DOSE DEM... Q4PCA IV Last administered on 10/18/16 04:37 ; Admin Dose 30 MG; Start 10/13/16 at 19:00 Potassium Chloride/Dextrose/ Sod Cl 1,000 ml @ 125 mls/hr Q8H IV Last administered on 10/18/16 02:08; Admin Dose 125 MLS/HR; Start 10/13/16 at 18:58 Acetaminophen (Ofirmev 1000mg/ 100ml Iv) 100 ml @ 400 mls/hr Q6H PRN IVPB PAIN ; Start 10/13/16 at 19:00 Hydralazine HCl (Apresoline) 10 mg Q6H PRN IV SBP GREATER THAN 160 Last administered on 10/14/16 10:23; Admin Dose 10 MG; Start 10/14/16 at 10:30 Clonidine HCl (Catapres-Tts 1 Patch) 1 patch Q7D TRANSDERM Last administered on 10/14/16 11:19; Admin Dose 1 PATCH; Start 10/14/16 at 11:00 Pantoprazole (Protonix Iv) 40 mg DAILY@06 IV Last administered on 10/18/16 06: 12; Admin Dose 40 MG; Start 10/15/16 at 06:00 Insulin Aspart (Novolog Insulin Pen) NOVOLOG *MILD* ALGORI... Q4 SC Last administered on 10/18/16 09:46; Admin Dose 1 UNIT; Start 10/14/16 at 21:00 Phenol (Cepastat Lozenge) 1 lozenge Q4H PRN MT pain Last administered on 12:45; Admin Dose 1 LOZENGE; Start 10/16/16 at 14:00 Levothyroxine Sodium (Synthroid Iv) 75 mcg DAILY@06 IV Last administered on 06:12; Admin Dose 75 MCG; Start 10/18/16 at 06:00 UGO BRYANT MD Oct 18, 2016 09:53
[2016-10-18] MEDS ORDERED: MAGNESIUM SULFATE 2 GM/50 ML 50 ML IVPB ONE (11:00)
--- NOTE | 2016-10-18 16:14 | PN ---
Date/Time of Note Date/Time of Note DATE: 10/18/16 TIME: 16:11 Assessment/Plan VTE Prophylaxis VTE Prophylaxis Intervention: SCD's Lines/Catheters IV Catheter Type (from Nrsg): Central Line Central line still needed: Yes Urinary Cath still in place: Yes Reason Cath still needed: urinary retention Assessment/Plan Chief Complaint/Hosp Course Assessment and plan: -Sigmoid diverticulitis with abscess, Colovesical fistula, S/P Exploratory laparotomy,incision and drainage of pelvic abscess,transverse loop colostomy by Dr. Jiménez. Continue to follow-up surgical recommendations. Continue morphine [employer] for pain and Zofran for nausea. Continue Zosyn. -Diabetes mellitus type II, continue NovoLog per mild ALGORITHM sliding scale every 4 hours -Hyperlipidemia -Hypothyroidism, continue Synthroid. - HTN, continue Catapres patch -Depression Continue SCDs for deep venous thrombosis prophylaxis. Further recommendations based on clinical course. Plan of care discussed with Dr. Maldonado. Problems: Subjective 24 Hr Interval Summary Free Text/Dictation Patient's remains hemodynamically stable, pain is well controlled. Exam/Review of Systems Vital Signs Vitals Vital Signs Date Time Temp Pulse Resp B/P Pulse Ox O2 Delivery O2 Flow Rate FiO2 10/18/16 13:16 18 10/18/16 08:45 Nasal Cannula 2.0 10/18/16 07:36 99.8 71 110/56 93 Intake and Output 10/17/16 10/17/16 10/18/16 15:00 23:00 07:00 Intake Total 1100 ml 725 ml 1575 ml Output Total 1500 ml 200 ml Balance 1100 ml -775 ml 1375 ml Exam Constitutional: alert, oriented Psych: no complaints Head: atraumatic, normocephalic Eyes: nl conjunctiva ENMT: nl external ears & nose Neck: non-tender, supple Respiratory: clear to auscultation, normal air movement Cardiovascular: nl pulses, regular rate and rhythm Gastrointestinal: other (Status post surgery), soft Musculoskeletal: nl extremities to inspection Extremities: normal pulses Neurological: BREWMASTER II-XII intact Results Result Diagram: 10/17/16 0529 10/18/16 0458 Results 24 hrs Laboratory Tests Test 10/17/16 17:26 10/17/16 20:46 10/18/16 01:04 10/18/16 04:36 Bedside Glucose 137 150 146 160 Test 10/18/16 04:58 10/18/16 09:34 10/18/16 12:55 Sodium Level 136 Potassium Level 3.6 Chloride Level 102 Carbon Dioxide Level 32 H Anion Gap 6 L Blood Urea Nitrogen < 2 L Creatinine 0.36 L Glucose Level 158 Calcium Level 8.1 L Magnesium Level 1.6 L Bedside Glucose 152 125 Medications Medications Current Medications Miscellaneous Information 1 ea NOTE XX ; Start 10/09/16 at 23:45 Glucose (Glutose) 15 gm Q15M PRN PO DECREASED GLUCOSE; Start 10/09/16 at 23:45 Glucose (Glutose) 22.5 gm Q15M PRN PO DECREASED GLUCOSE; Start 10/09/16 at 23:45 Dextrose (D50w Syringe) 25 ml Q15M PRN IV DECREASED GLUCOSE; Start 10/09/16 at 23:45 Dextrose (D50w Syringe) 50 ml Q15M PRN IV DECREASED GLUCOSE; Start 10/09/16 at 23:45 Glucagon (Glucagen) 1 mg Q15M PRN IM DECREASED GLUCOSE; Start 10/09/16 at 23:45 Glucose (Glutose) 15 gm Q15M PRN BUCCAL DECREASED GLUCOSE; Start 10/09/16 at 23: 45 Metoclopramide HCl (Reglan) 10 mg Q6H PRN IV NAUSEA AND/OR VOMITING; Start 04/18 at 00:00 Morphine Sulfate 4 mg 4 mg Q3 PRN IV SEVERE PAIN LEVEL 7-10 Last administered on 10/13/16 13:36; Admin Dose 4 MG; Start 10/10/16 at 03:00 Piperacillin Sod/ Tazobactam Sod (Zosyn 3.375gm/ 100 ml (Pmx)) 100 ml @ 200 mls /hr Q6 IVPB Last administered on 10/18/16 12:51; Admin Dose 200 MLS/HR; Start 10/10/16 at 18:00 Acetaminophen/ Hydrocodone Bitart ([place] (10/325)) 1 tab Q4H PRN PO PAIN Last administered on 10/12/16 13:23; Admin Dose 1 TAB; Start 10/11/16 at 06:00; Status Future Hold Diphenhydramine HCl (Benadryl) 25 mg Q6H PRN IV ITCHING; Start 10/11/16 at 06: 00 Diagnostic Test (Pha) (Accu-Chek) 1 ea 02 XX ; Start 10/12/16 at 02:00 Ondansetron HCl (Zofran Inj) 4 mg Q6H PRN IV NAUSEA AND/OR VOMITING; Start at 19:00 Morphine Sulfate 2 MG DOSE DEM... Q4PCA IV Last administered on 10/18/16 13:03 ; Admin Dose 30 MG; Start 10/13/16 at 19:00 Potassium Chloride/Dextrose/ Sod Cl 1,000 ml @ 125 mls/hr Q8H IV Last administered on 10/18/16 10:38; Admin Dose 125 MLS/HR; Start 10/13/16 at 18:58 Acetaminophen (Ofirmev 1000mg/ 100ml Iv) 100 ml @ 400 mls/hr Q6H PRN IVPB PAIN ; Start 10/13/16 at 19:00 Hydralazine HCl (Apresoline) 10 mg Q6H PRN IV SBP GREATER THAN 160 Last administered on 10/14/16 10:23; Admin Dose 10 MG; Start 10/14/16 at 10:30 Clonidine HCl (Catapres-Tts 1 Patch) 1 patch Q7D TRANSDERM Last administered on 10/14/16 11:19; Admin Dose 1 PATCH; Start 10/14/16 at 11:00 Pantoprazole (Protonix Iv) 40 mg DAILY@06 IV Last administered on 10/18/16 06: 12; Admin Dose 40 MG; Start 10/15/16 at 06:00 Insulin Aspart (Novolog Insulin Pen) NOVOLOG *MILD* ALGORI... Q4 SC Last administered on 10/18/16 09:46; Admin Dose 1 UNIT; Start 10/14/16 at 21:00 Phenol (Cepastat Lozenge) 1 lozenge Q4H PRN MT pain Last administered on 12:45; Admin Dose 1 LOZENGE; Start 10/16/16 at 14:00 Levothyroxine Sodium (Synthroid Iv) 75 mcg DAILY@06 IV Last administered on 06:12; Admin Dose 75 MCG; Start 10/18/16 at 06:00 ANUJ CHANG Oct 18, 2016 16:14
[2016-10-18] MEDS: CEPASTAT LOZENGE MT PRN (16:19)
--- NOTE | 2016-10-18 19:01 | PN ---
DATE: 10/18/2016 Postop day #5 status post laparotomy and placement of a transverse loop colostomy for diverticular a bscess and a colovesical fistula. SUBJECTIVE: Complains of some abdominal pain, but no nausea, no vomiting. Patient has NG tube drai michael greenish fluid. Colostomy and bag has not started to get any air in it or fluid, so colostomy is not functioning. OBJECTIVE: VITAL SIGNS: Temperature at 7:00 a.m. today 99.8, later on 98.6, pulse rate 71, respiration 18, blo od pressure 100/56, saturation 93% on 2 liters nasal cannula. LABORATORY DATA: Carbon dioxide 32, high. Sodium, potassium normal. Hemoglobin 9.1, hematocrit 30. 4. WBC 9200 yesterday ____. NG drainage 2200 mL per 24 hours. The Bird catheter and SCDs in plac e Abdomen, left side, left upper and left lower quadrant, quite soft. Colostomy is not functioning . Right lower quadrant with some distention and some tenderness on pressure. ASSESSMENT AND PLAN: Postop day #5 status post laparotomy, placement of a transverse loop colostomy for diversion of the stool stream because of diverticulitis and diverticular abscesses and colovesi eugene fistula. Patient has not started functioning her colostomy yet. As soon as patient with curren t colostomy function, we can remove the NG tube. There is some concern about this tenderness in the right lower quadrant and right side of the abdomen. I am going to get a KUB today or tomorrow to s ee if we can find any abnormalities. Later on we may have to proceed with CT scannings as needed. PLAN: Continue current care and will get physical therapy to assist the patient ambulation. Dictated By: TICO PUCKETT MD PS/NTS Conf#: [id number] DID#: [id number]
[2016-10-18 20:39] VITALS: BP 134/71; RESP 18
[2016-10-19] MEDS: INSULIN ASPART [NOVOLOG] 3 ML PEN SC SCH ×6 (00:47→20:28)
[2016-10-19] MEDS: ACCUCHECK AT 2AM (Patients on SS coverage) XX SCH (02:00)
[2016-10-19] MEDS: D5W-0.45 NACL + KCL 20 MEQ 1,000 ML IV SCH ×3 (02:45→10:54)
[2016-10-19 05:28] LABS: ADD SCAN DIFF NO
[2016-10-19] MEDS: LEVOTHYROXINE 100 MCG VIAL IV SCH (05:36)
[2016-10-19] MEDS: PANTOPRAZOLE 40 MG INJ IV SCH (05:36)
[2016-10-19] MEDS: PIPER-TAZO 3.375 GM IV (PMX) 100 ML IVPB SCH ×3 (05:36→17:36)
[2016-10-19 05:49] LABS: BASOPHILS % 0.4 % (0.0-2.0); EOSINOPHILS # 0.2 10^3/ul (0.0-0.5); EOSINOPHILS % 3.2 % (0.0-7.0); HEMATOCRIT 28.8 % (37.0-47.0); HEMOGLOBIN 8.5 g/dl (12.0-16.0); LYMPHOCYTES # 1.1 10^3/ul (0.8-2.9); LYMPHOCYTES % 20.2 % (15.0-51.0); MEAN CORPUSCULAR HEMOGLOBIN 25.6 pg (29.0-33.0); MEAN CORPUSCULAR HGB CONC 29.5 g/dl (32.0-37.0); MEAN CORPUSCULAR VOLUME 86.7 fl (82.0-101.0); MEAN PLATELET VOLUME 8.1 fl (7.4-10.4); MONOCYTE # 0.4 10^3/ul (0.3-0.9); MONOCYTES % 7.6 % (0.0-11.0); NEUTROPHIL # 3.6 10^3/ul (1.6-7.5); NEUTROPHILS % 68.2 % (39.0-77.0); PLATELET COUNT 351 10^3/UL (140-415); RED BLOOD COUNT 3.32 10^6/ul (4.20-5.40); RED CELL DISTRIBUTION WIDTH 15.4 % (11.5-14.5); WHITE BLOOD COUNT 5.3 10^3/ul (4.8-10.8)
[2016-10-19 05:52] LABS: CHLORIDE 100 mmol/L (97-110); SODIUM 137 mmol/L (135-144)
[2016-10-19 05:53] LABS: POTASSIUM 3.5 mmol/L (3.5-5.1)
[2016-10-19 05:54] LABS: PHOSPHORUS 3.5 mg/dl (2.5-4.9)
[2016-10-19 05:55] LABS: CREATININE 0.37 mg/dl (0.44-1.00); MAGNESIUM 1.4 mg/dl (1.7-2.5)
[2016-10-19 05:56] LABS: ANION GAP 9 (8-16); CALCIUM 8.2 mg/dl (8.4-10.2); CARBON DIOXIDE 32 mmol/L (21-31); GLUCOSE 151 mg/dl (70-220)
[2016-10-19 06:00] LABS: BLOOD UREA NITROGEN < 2 mg/dl (7-20)
--- NOTE | 2016-10-19 11:39 | PN ---
Date/Time of Note Date/Time of Note DATE: 10/19/16 TIME: 11:33 Assessment/Plan VTE Prophylaxis VTE Prophylaxis Intervention: SCD's Lines/Catheters IV Catheter Type (from Nrsg): Central Line Central line still needed: Yes (IV abx, IVF S/p surgery ) Urinary Cath still in place: Yes Reason Cath still needed: other (indicate) (colovesical fistula ) Assessment/Plan Assessment/Plan 1. Acute diverticulitis with perforation causign diverticular abscess status post exploratory laparotomy and placement of diverting transverse colostomy for diversion of fecal stream. The patient also has colovesical fistula, keep jacobs catheter in IV abx zosyn,ID following 2. Lower gastrointestinal bleeding likely secondary to diverticulosis-stable 3. Hypothyroidism Continue Rx 4. Weakness and numbness of the left lower extremity-stable 5. Diabetes-currently stable Continue sliding-scale 6. Hypokalemia-repleted yesterda, today K stable, decrese IVF rate to 75 cc/hr 7. hypomagnesemia- magnesium sulfate 2 gram IV x 1 now Prophylaxis: SCDs Subjective 24 Hr Interval Summary Free Text/Dictation doing ok, BP stable, colostomy not working well yet Exam/Review of Systems Vital Signs Vitals Vital Signs Date Time Temp Pulse Resp B/P Pulse Ox O2 Delivery O2 Flow Rate FiO2 10/19/16 10:55 18 10/19/16 03:29 2.0 10/18/16 21:26 Nasal Cannula 10/18/16 20:39 98.8 68 134/71 94 Intake and Output 10/18/16 10/18/16 10/19/16 15:00 23:00 07:00 Intake Total 725 ml 1100 ml 850 ml Output Total 1400 ml 1800 ml Balance 725 ml -300 ml -950 ml Exam Constitutional: alert Respiratory: clear to auscultation Cardiovascular: regular rate and rhythm Gastrointestinal: soft, + diverting colostomy No distended Musculoskeletal: nl extremities to inspection Results Result Diagram: 10/19/16 0512 10/19/16 0512 Results 24 hrs Laboratory Tests Test 10/18/16 12:55 10/18/16 17:40 10/18/16 20:28 10/19/16 00:47 Bedside Glucose 125 147 118 133 Test 10/19/16 05:12 10/19/16 05:37 10/19/16 09:17 White Blood Count 5.3 # Red Blood Count 3.32 L Hemoglobin 8.5 L Hematocrit 28.8 L Mean Corpuscular Volume 86.7 Mean Corpuscular Hemoglobin 25.6 L Mean Corpuscular Hemoglobin Concent 29.5 L Red Cell Distribution Width 15.4 H Platelet Count 351 Mean Platelet Volume 8.1 Neutrophils % 68.2 Lymphocytes % 20.2 Monocytes % 7.6 Eosinophils % 3.2 Basophils % 0.4 Nucleated Red Blood Cells % 0.0 Neutrophils # 3.6 Lymphocytes # 1.1 Monocytes # 0.4 Eosinophils # 0.2 Basophils # 0.0 Nucleated Red Blood Cells # 0.0 Sodium Level 137 Potassium Level 3.5 Chloride Level 100 Carbon Dioxide Level 32 H Anion Gap 9 Blood Urea Nitrogen < 2 L Creatinine 0.37 L Glucose Level 151 Calcium Level 8.2 L Phosphorus Level 3.5 Magnesium Level 1.4 L Bedside Glucose 155 108 Medications Medications Current Medications Miscellaneous Information 1 ea NOTE XX ; Start 10/09/16 at 23:45 Glucose (Glutose) 15 gm Q15M PRN PO DECREASED GLUCOSE; Start 10/09/16 at 23:45 Glucose (Glutose) 22.5 gm Q15M PRN PO DECREASED GLUCOSE; Start 10/09/16 at 23:45 Dextrose (D50w Syringe) 25 ml Q15M PRN IV DECREASED GLUCOSE; Start 10/09/16 at 23:45 Dextrose (D50w Syringe) 50 ml Q15M PRN IV DECREASED GLUCOSE; Start 10/09/16 at 23:45 Glucagon (Glucagen) 1 mg Q15M PRN IM DECREASED GLUCOSE; Start 10/09/16 at 23:45 Glucose (Glutose) 15 gm Q15M PRN BUCCAL DECREASED GLUCOSE; Start 10/09/16 at 23: 45 Metoclopramide HCl (Reglan) 10 mg Q6H PRN IV NAUSEA AND/OR VOMITING; Start 04/18 at 00:00 Morphine Sulfate 4 mg 4 mg Q3 PRN IV SEVERE PAIN LEVEL 7-10 Last administered on 10/13/16 13:36; Admin Dose 4 MG; Start 10/10/16 at 03:00 Piperacillin Sod/ Tazobactam Sod (Zosyn 3.375gm/ 100 ml (Pmx)) 100 ml @ 200 mls /hr Q6 IVPB Last administered on 10/19/16 05:36; Admin Dose 200 MLS/HR; Start 10/10/16 at 18:00 Acetaminophen/ Hydrocodone Bitart ([place] (10/325)) 1 tab Q4H PRN PO PAIN Last administered on 10/12/16 13:23; Admin Dose 1 TAB; Start 10/11/16 at 06:00; Status Future Hold Diphenhydramine HCl (Benadryl) 25 mg Q6H PRN IV ITCHING; Start 10/11/16 at 06: 00 Diagnostic Test (Pha) (Accu-Chek) 1 ea 02 XX ; Start 10/12/16 at 02:00 Ondansetron HCl (Zofran Inj) 4 mg Q6H PRN IV NAUSEA AND/OR VOMITING; Start at 19:00 Morphine Sulfate 2 MG DOSE DEM... Q4PCA IV Last administered on 10/18/16 23:49 ; Admin Dose 30 MG; Start 10/13/16 at 19:00 Potassium Chloride/Dextrose/ Sod Cl 1,000 ml @ 125 mls/hr Q8H IV Last administered on 10/19/16 10:54; Admin Dose 125 MLS/HR; Start 10/13/16 at 18:58 Acetaminophen (Ofirmev 1000mg/ 100ml Iv) 100 ml @ 400 mls/hr Q6H PRN IVPB PAIN ; Start 10/13/16 at 19:00 Hydralazine HCl (Apresoline) 10 mg Q6H PRN IV SBP GREATER THAN 160 Last administered on 10/14/16 10:23; Admin Dose 10 MG; Start 10/14/16 at 10:30 Clonidine HCl (Catapres-Tts 1 Patch) 1 patch Q7D TRANSDERM Last administered on 10/14/16 11:19; Admin Dose 1 PATCH; Start 10/14/16 at 11:00 Pantoprazole (Protonix Iv) 40 mg DAILY@06 IV Last administered on 10/19/16 05: 36; Admin Dose 40 MG; Start 10/15/16 at 06:00 Insulin Aspart (Novolog Insulin Pen) NOVOLOG *MILD* ALGORI... Q4 SC Last administered on 10/19/16 05:46; Admin Dose 1 UNIT; Start 10/14/16 at 21:00 Phenol (Cepastat Lozenge) 1 lozenge Q4H PRN MT pain Last administered on 16:19; Admin Dose 1 LOZENGE; Start 10/16/16 at 14:00 Levothyroxine Sodium (Synthroid Iv) 75 mcg DAILY@06 IV Last administered on 05:36; Admin Dose 75 MCG; Start 10/18/16 at 06:00 UGO BRYANT MD Oct 19, 2016 11:39
[2016-10-19] MEDS ORDERED: MAGNESIUM SULFATE 2 GM/50 ML 50 ML IVPB ONE (12:00)
[2016-10-19] MEDS: morphine 1 MG/ML 30 ML (PCA) IV SCH ×2 (12:04→21:04)
--- NOTE | 2016-10-19 14:01 | PN ---
DATE: 10/19/2016 Status postop day #5 post-laparotomy and placement of transverse colostomy SUBJECTIVE: The patient complains of abdominal pain, mainly on the right side. No nausea, no vomit ing. NG tube is in place. OBJECTIVE: VITAL SIGNS: Vital signs have not been charted today yet. ABDOMEN: Left side is soft, right side is soft, but there is distention in the right lower quadrant . Tender on deep pressure. Colostomy is not functioning yet. EXTREMITIES: Legs no calf tenderness. LABORATORY DATA: Blood sugar 108. Magnesium 104 is still low. Phosphorus 3.5. BUN and creat inine normal. Sodium and potassium normal ASSESSMENT: Status post laparotomy, placement of transverse loop colostomy for diversion of fecal stream because of diverticulitis and diverticular abscesses, and colovesical fistula. The patient h as not started to pass gas or stool per colostomy yet. Right side of the abdomen, lower side is get ting more distended compared to a few days ago. Bowel sounds are present. PLAN: I am going to get a KUB and if not conclusive, we may have to get a CT scan to find out what is the cause of this distention. Could be probably obstruction at the colon or colostomy levels. Dictated By: TICO GUADARRAMA/ELINA Conf#: [id number] DID#: [id number]
--- NOTE | 2016-10-19 17:39 | PN ---
Date/Time of Note Date/Time of Note DATE: 10/19/16 TIME: 17:30 Assessment/Plan VTE Prophylaxis VTE Prophylaxis Intervention: SCD's Lines/Catheters IV Catheter Type (from Nrsg): Central Line Central line still needed: Yes Urinary Cath still in place: Yes Reason Cath still needed: urinary retention Assessment/Plan Chief Complaint/Hosp Course Assessment and plan: -Sigmoid diverticulitis with abscess, Colovesical fistula, S/P Exploratory laparotomy, incision and drainage of pelvic abscess,transverse loop colostomy by Dr. Jiménez. Continue to follow-up surgical recommendations. 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 Continue Zosyn. Pending KUB. -Diabetes mellitus type II, continue NovoLog per mild ALGORITHM sliding scale every 4 hours -Hyperlipidemia -Hypothyroidism, continue Synthroid. - HTN, continue Catapres patch - Depression Continue SCDs for deep venous thrombosis prophylaxis. Further recommendations based on clinical course. Plan of care discussed with Dr. Maldonado. Problems: Exam/Review of Systems Vital Signs Vitals Vital Signs Date Time Temp Pulse Resp B/P Pulse Ox O2 Delivery O2 Flow Rate FiO2 10/19/16 14:17 2.0 10/19/16 12:13 17 10/19/16 08:00 Nasal Cannula 10/18/16 20:39 98.8 68 134/71 94 Intake and Output 10/18/16 10/18/16 10/19/16 15:00 23:00 07:00 Intake Total 725 ml 1100 ml 850 ml Output Total 1400 ml 1800 ml Balance 725 ml -300 ml -950 ml Exam Constitutional: alert, oriented Psych: no complaints Head: atraumatic, normocephalic Eyes: nl conjunctiva ENMT: nl external ears & nose Neck: non-tender, supple Respiratory: clear to auscultation, normal air movement Cardiovascular: nl pulses, regular rate and rhythm Gastrointestinal: other (Status post surgery), soft Musculoskeletal: nl extremities to inspection Extremities: normal pulses Neurological: [employer] II-XII intact Results Result Diagram: 10/19/1651110/19/16511 Results 24 hrs Laboratory Tests Test 10/18/16 17:40 10/18/16 20:28 10/19/16 00:47 10/19/16 05:12 Bedside Glucose 147 118 133 White Blood Count 5.3 # Red Blood Count 3.32 L Hemoglobin 8.5 L Hematocrit 28.8 L Mean Corpuscular Volume 86.7 Mean Corpuscular Hemoglobin 25.6 L Mean Corpuscular Hemoglobin Concent 29.5 L Red Cell Distribution Width 15.4 H Platelet Count 351 Mean Platelet Volume 8.1 Neutrophils % 68.2 Lymphocytes % 20.2 Monocytes % 7.6 Eosinophils % 3.2 Basophils % 0.4 Nucleated Red Blood Cells % 0.0 Neutrophils # 3.6 Lymphocytes # 1.1 Monocytes # 0.4 Eosinophils # 0.2 Basophils # 0.0 Nucleated Red Blood Cells # 0.0 Sodium Level 137 Potassium Level 3.5 Chloride Level 100 Carbon Dioxide Level 32 H Anion Gap 9 Blood Urea Nitrogen < 2 L Creatinine 0.37 L Glucose Level 151 Calcium Level 8.2 L Phosphorus Level 3.5 Magnesium Level 1.4 L Test 10/19/16 05:37 10/19/16 09:17 10/19/16 12:57 Bedside Glucose 155 108 121 Medications Medications Current Medications Miscellaneous Information 1 ea NOTE XX ; Start 10/09/16 at 23:45 Glucose (Glutose) 15 gm Q15M PRN PO DECREASED GLUCOSE; Start 10/09/16 at 23:45 Glucose (Glutose) 22.5 gm Q15M PRN PO DECREASED GLUCOSE; Start 10/09/16 at 23:45 Dextrose (D50w Syringe) 25 ml Q15M PRN IV DECREASED GLUCOSE; Start 10/09/16 at 23:45 Dextrose (D50w Syringe) 50 ml Q15M PRN IV DECREASED GLUCOSE; Start 10/09/16 at 23:45 Glucagon (Glucagen) 1 mg Q15M PRN IM DECREASED GLUCOSE; Start 10/09/16 at 23:45 Glucose (Glutose) 15 gm Q15M PRN BUCCAL DECREASED GLUCOSE; Start 10/09/16 at 23: 45 Metoclopramide HCl (Reglan) 10 mg Q6H PRN IV NAUSEA AND/OR VOMITING; Start 04/18 at 00:00 Morphine Sulfate 4 mg 4 mg Q3 PRN IV SEVERE PAIN LEVEL 7-10 Last administered on 10/13/16t 13:36; Admin Dose 4 MG; Start 10/10/16 at 03:00 Piperacillin Sod/ Tazobactam Sod (Zosyn 3.375gm/ 100 ml (Pmx)) 100 ml @ 200 mls /hr Q6 IVPB Last administered on 10/19/16 11:57; Admin Dose 200 MLS/HR; Start 10/10/16 at 18:00 Acetaminophen/ Hydrocodone Bitart ([place] ()) 1 tab Q4H PRN PO PAIN Last administered on 10/12/16 13:23; Admin Dose 1 TAB; Start 10/11/16 at 06:00; Status Future Hold Diphenhydramine HCl (Benadryl) 25 mg Q6H PRN IV ITCHING; Start 10/11/16 at 06: 00 Diagnostic Test (Pha) (Accu-Chek) 1 ea 02 XX ; Start 10/12/16 at 02:00 Ondansetron HCl (Zofran Inj) 4 mg Q6H PRN IV NAUSEA AND/OR VOMITING; Start at 19:00 Morphine Sulfate 2 MG DOSE DEM... Q4PCA IV Last administered on 10/19/16 12:04 ; Admin Dose 30 MG; Start 10/13/16 at 19:00 Potassium Chloride/Dextrose/ Sod Cl 1,000 ml @ 75 mls/hr [id number] IV Last administered on 10/19/16 10:54; Admin Dose 125 MLS/HR; Start 10/13/16 at 18:58 Acetaminophen (Ofirmev 1000mg/ 100ml Iv) 100 ml @ 400 mls/hr Q6H PRN IVPB PAIN ; Start 10/13/16 at 19:00 Hydralazine HCl (Apresoline) 10 mg Q6H PRN IV SBP GREATER THAN 160 Last administered on 10/14/16 10:23; Admin Dose 10 MG; Start 10/14/16 at 10:30 Clonidine HCl (Catapres-Tts 1 Patch) 1 patch Q7D TRANSDERM Last administered on 10/14/16 11:19; Admin Dose 1 PATCH; Start 10/14/16 at 11:00 Pantoprazole (Protonix Iv) 40 mg DAILY@06 IV Last administered on 10/19/16 05: 36; Admin Dose 40 MG; Start 10/15/16 at 06:00 Insulin Aspart (Novolog Insulin Pen) NOVOLOG *MILD* ALGORI... Q4 SC Last administered on 10/19/16 05:46; Admin Dose 1 UNIT; Start 10/14/16 at 21:00 Phenol (Cepastat Lozenge) 1 lozenge Q4H PRN MT pain Last administered on 16:19; Admin Dose 1 LOZENGE; Start 10/16/16 at 14:00 Levothyroxine Sodium (Synthroid Iv) 75 mcg DAILY@06 IV Last administered on 05:36; Admin Dose 75 MCG; Start 10/18/16 at 06:00 ANUJ CHANG Oct 19, 2016 17:39
--- NOTE | 2016-10-19 17:42 | RADRPT ---
PROCEDURE: X-ray, Abdomen. CLINICAL INDICATION: Postop abdominal distension. TECHNIQUE: Abdominal x-ray, 2 views. COMPARISON: None. FINDINGS: A general paucity of intra-abdominal gas is observed. Midline surgical fernando are in place. An en teric tube terminates within the body of the stomach. Degenerative changes of the spine are present . IMPRESSION: General paucity of intra-abdominal gas. RPTAT: HLST .Vannessa Brantley MD, MD Date Time Electronically viewed and signed by .Vannessa Brantley MD, MD on 10/19/2016 17:42 .T/
[2016-10-19 19:45] VITALS: BP 115/53; RESP 18
[2016-10-20] MEDS: PIPER-TAZO 3.375 GM IV (PMX) 100 ML IVPB SCH ×4 (00:26→18:25)
[2016-10-20] MEDS: INSULIN ASPART [NOVOLOG] 3 ML PEN SC SCH ×6 (00:29→21:00)
[2016-10-20] MEDS: ACCUCHECK AT 2AM (Patients on SS coverage) XX SCH (01:00)
[2016-10-20] MEDS: LEVOTHYROXINE 100 MCG VIAL IV SCH (05:29)
[2016-10-20] MEDS: PANTOPRAZOLE 40 MG INJ IV SCH (05:29)
[2016-10-20 06:26] LABS: CHLORIDE 97 mmol/L (97-110); POTASSIUM 3.5 mmol/L (3.5-5.1); SODIUM 138 mmol/L (135-144)
[2016-10-20 06:29] LABS: ANION GAP 10 (8-16); CALCIUM 8.4 mg/dl (8.4-10.2); CARBON DIOXIDE 35 mmol/L (21-31); CREATININE 0.36 mg/dl (0.44-1.00); GLUCOSE 96 mg/dl (70-220)
[2016-10-20 06:32] LABS: BLOOD UREA NITROGEN < 2 mg/dl (7-20)
[2016-10-20 07:06] VITALS: BP 97/54; PULSE 76; RESP 17
[2016-10-20] MEDS: morphine 1 MG/ML 30 ML (PCA) IV SCH (08:08)
[2016-10-20] MEDS: D5W-0.45 NACL + KCL 20 MEQ 1,000 ML IV SCH ×2 (08:18→12:02)
--- NOTE | 2016-10-20 10:20 | PN ---
Date/Time of Note Date/Time of Note DATE: 10/20/16 TIME: 10:12 Assessment/Plan VTE Prophylaxis VTE Prophylaxis Intervention: SCD's Lines/Catheters IV Catheter Type (from Nrsg): Central Line Central line still needed: Yes Urinary Cath still in place: Yes Reason Cath still needed: urinary retention Assessment/Plan Assessment/Plan -Xned-ueajrhdxf-cixbfwm magnesium, a.m. magnesium level -Sigmoid diverticulitis with abscess, Colovesical fistula, S/P Exploratory laparotomy, incision and drainage of pelvic abscess,transverse loop colostomy by Dr. Jiménez. -Abdominal dressing dry and intact, no nasal discharge or bleeding noted -Per surgical recommendations. 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 Continue Zosyn. - KUB-showed General paucity of intra-abdominal gas. -Incentive spirometer when awake -Diabetes mellitus type II, continue NovoLog per mild ALGORITHM sliding scale every 4 hours -Hyperlipidemia -Hypothyroidism, continue Synthroid. - HTN, continue Catapres patch - Depression Continue SCDs for deep venous thrombosis prophylaxis. Further recommendations based on clinical course. Plan of care discussed with Dr. Maldonado. Subjective 24 Hr Interval Summary Free Text/Dictation Complains of abdominal surgery site pain. 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 Plan for patient to get out of the bed with PT-patient is willing to get out of the bed. Denies any other complaints discussed with staff Eyes: no complaints ENT: no complaints Respiratory: no complaints Cardiovascular: no complaints Gastrointestinal: pain (At surgery site) Genitourinary: no complaints Musculoskeletal: no complaints Skin: other (Abdominal incision) Neurologic: no complaints Endocrine: no complaints Exam/Review of Systems Vital Signs Vitals Vital Signs Date Time Temp Pulse Resp B/P Pulse Ox O2 Delivery O2 Flow Rate FiO2 10/20/16 08:48 16 10/20/16 07:06 98.5 76 97/54 95 Nasal Cannula 2.0 Intake and Output 10/19/16 10/19/16 10/20/16 14:59 22:59 06:59 Intake Total 925 ml 475 ml 850 ml Output Total 2000 ml 2400 ml Balance 925 ml -1525 ml -1550 ml Exam Constitutional: alert, oriented (Oriented to name and place), well developed Psych: nl mood/affect Head: atraumatic Eyes: EOMI, PERRL, nl sclera Gastrointestinal: other (Status post abdominal surgery dressing is dry and intact, left lower quadrant colostomy noted draining liquid brown stool), soft, tender Musculoskeletal: nl extremities to inspection Extremities: normal pulses Neurological: nl mental status, nl speech Skin: other Lymph: nontender Results Result Diagram: 10/19/16 0512 10/20/16 0532 Results 24 hrs Laboratory Tests Test 10/19/16 12:57 10/19/16 17:30 10/19/16 20:20 10/20/16 00:27 Bedside Glucose 121 101 104 109 Test 10/20/16 05:21 10/20/16 05:32 10/20/16 09:28 Bedside Glucose 103 105 Sodium Level 138 Potassium Level 3.5 Chloride Level 97 Carbon Dioxide Level 35 H Anion Gap 10 Blood Urea Nitrogen < 2 L Creatinine 0.36 L Glucose Level 96 # Calcium Level 8.4 Magnesium Level 1.4 L Medications Medications Current Medications Miscellaneous Information 1 ea NOTE XX ; Start 10/09/16 at 23:45 Glucose (Glutose) 15 gm Q15M PRN PO DECREASED GLUCOSE; Start 10/09/16 at 23:45 Glucose (Glutose) 22.5 gm Q15M PRN PO DECREASED GLUCOSE; Start 10/09/16 at 23:45 Dextrose (D50w Syringe) 25 ml Q15M PRN IV DECREASED GLUCOSE; Start 10/09/16 at 23:45 Dextrose (D50w Syringe) 50 ml Q15M PRN IV DECREASED GLUCOSE; Start 10/09/16 at 23:45 Glucagon (Glucagen) 1 mg Q15M PRN IM DECREASED GLUCOSE; Start 10/09/16 at 23:45 Glucose (Glutose) 15 gm Q15M PRN BUCCAL DECREASED GLUCOSE; Start 10/09/16 at 23: 45 Metoclopramide HCl (Reglan) 10 mg Q6H PRN IV NAUSEA AND/OR VOMITING; Start 04/18 at 00:00 Morphine Sulfate 4 mg 4 mg Q3 PRN IV SEVERE PAIN LEVEL 7-10 Last administered on 10/13/16 13:36; Admin Dose 4 MG; Start 10/10/16 at 03:00 Piperacillin Sod/ Tazobactam Sod (Zosyn 3.375gm/ 100 ml (Pmx)) 100 ml @ 200 mls /hr Q6 IVPB Last administered on 10/20/16 05:29; Admin Dose 200 MLS/HR; Start 10/10/16 at 18:00 Acetaminophen/ Hydrocodone Bitart ([place] (10/325)) 1 tab Q4H PRN PO PAIN Last administered on 10/12/16 13:23; Admin Dose 1 TAB; Start 10/11/16 at 06:00; Status Future Hold Diphenhydramine HCl (Benadryl) 25 mg Q6H PRN IV ITCHING; Start 10/11/16 at 06: 00 Diagnostic Test (Pha) (Accu-Chek) 1 ea 02 XX ; Start 10/12/16 at 02:00 Ondansetron HCl (Zofran Inj) 4 mg Q6H PRN IV NAUSEA AND/OR VOMITING; Start at 19:00 Morphine Sulfate 2 MG DOSE DEM... Q4PCA IV Last administered on 10/20/16 08:08 ; Admin Dose 30 MG; Start 10/13/16 at 19:00 Potassium Chloride/Dextrose/ Sod Cl 1,000 ml @ 75 mls/hr [id number] IV Last administered on 10/19/16 10:54; Admin Dose 125 MLS/HR; Start 10/13/16 at 18:58 Acetaminophen (Ofirmev 1000mg/ 100ml Iv) 100 ml @ 400 mls/hr Q6H PRN IVPB PAIN ; Start 10/13/16 at 19:00 Hydralazine HCl (Apresoline) 10 mg Q6H PRN IV SBP GREATER THAN 160 Last administered on 10/14/16 10:23; Admin Dose 10 MG; Start 10/14/16 at 10:30 Clonidine HCl (Catapres-Tts 1 Patch) 1 patch Q7D TRANSDERM Last administered on 10/14/16 11:19; Admin Dose 1 PATCH; Start 10/14/16 at 11:00 Pantoprazole (Protonix Iv) 40 mg DAILY@06 IV Last administered on 10/20/16 05: 29; Admin Dose 40 MG; Start 10/15/16 at 06:00 Insulin Aspart (Novolog Insulin Pen) NOVOLOG *MILD* ALGORI... Q4 SC Last administered on 10/19/16 05:46; Admin Dose 1 UNIT; Start 10/14/16 at 21:00 Phenol (Cepastat Lozenge) 1 lozenge Q4H PRN MT pain Last administered on 16:19; Admin Dose 1 LOZENGE; Start 10/16/16 at 14:00 Levothyroxine Sodium (Synthroid Iv) 75 mcg DAILY@06 IV Last administered on 05:29; Admin Dose 75 MCG; Start 10/18/16 at 06:00 MEGHNA SCHMIDT Oct 20, 2016 10:20
[2016-10-20] MEDS ORDERED: MAGNESIUM SULFATE 2 GM/50 ML 50 ML IVPB ONE (10:30)
[2016-10-20 11:54] VITALS: BP 97/54; RESP 18
[2016-10-20] MEDS ORDERED: MAGNESIUM SULFATE 3 GM in SOD CHLORIDE 0.9% 100 ML IVPB ONE (12:30)
[2016-10-20 12:50] VITALS: BP 127/56; PULSE 76; RESP 16
[2016-10-20] MEDS: KETOROLAC 30 MG INJ IV SCH ×2 (12:56→18:27)
--- NOTE | 2016-10-20 13:37 | PN ---
Date/Time of Note Date/Time of Note DATE: 10/20/16 TIME: 13:36 Assessment/Plan VTE Prophylaxis VTE Prophylaxis Intervention: SCD's Lines/Catheters IV Catheter Type (from Nrsg): Central Line Central line still needed: Yes (Iv abx ) Urinary Cath still in place: Yes Reason Cath still needed: other (indicate) (pt has colovesical fistula ) Assessment/Plan Assessment/Plan 1. Acute diverticulitis with perforation causign diverticular abscess status post exploratory laparotomy and placement of diverting transverse colostomy for diversion of fecal stream. The patient also has colovesical fistula, keep jacobs catheter in IV abx zosyn,ID following 2. Lower gastrointestinal bleeding likely secondary to diverticulosis-stable 3. Hypothyroidism Continue Rx 4. Weakness and numbness of the left lower extremity-stable 5. Diabetes-currently stable Continue sliding-scale electrolytes repalcement as needed Prophylaxis: SCDs Subjective 24 Hr Interval Summary Free Text/Dictation c/o abdominal pain,k still has NG tube on intermittent suction Exam/Review of Systems Vital Signs Vitals Vital Signs Date Time Temp Pulse Resp B/P Pulse Ox O2 Delivery O2 Flow Rate FiO2 10/20/16 12:50 99.4 76 16 127/56 94 Nasal Cannula 2.0 Intake and Output 10/19/16 10/19/16 10/20/16 15:00 23:00 07:00 Intake Total 925 ml 475 ml 850 ml Output Total 2000 ml 2400 ml Balance 925 ml -1525 ml -1550 ml Exam Constitutional: alert Respiratory: clear to auscultation Cardiovascular: regular rate and rhythm Gastrointestinal: soft, + diverting colostomy No distended Musculoskeletal: nl extremities to inspection Results Result Diagram: 10/19/16 0512 10/20/16 0532 Results 24 hrs Laboratory Tests Test 10/19/16 17:30 10/19/16 20:20 10/20/16 00:27 10/20/16 05:21 Bedside Glucose 101 104 109 103 Test 10/20/16 05:32 10/20/16 09:28 10/20/16 13:06 Sodium Level 138 Potassium Level 3.5 Chloride Level 97 Carbon Dioxide Level 35 H Anion Gap 10 Blood Urea Nitrogen < 2 L Creatinine 0.36 L Glucose Level 96 # Calcium Level 8.4 Magnesium Level 1.4 L Bedside Glucose 105 95 Medications Medications Current Medications Miscellaneous Information 1 ea NOTE XX ; Start 4/9/17 at 23:45 Glucose (Glutose) 15 gm Q15M PRN PO DECREASED GLUCOSE; Start 10/09/16 at 23:45 Glucose (Glutose) 22.5 gm Q15M PRN PO DECREASED GLUCOSE; Start 10/09/16 at 23:45 Dextrose (D50w Syringe) 25 ml Q15M PRN IV DECREASED GLUCOSE; Start 10/09/16 at 23:45 Dextrose (D50w Syringe) 50 ml Q15M PRN IV DECREASED GLUCOSE; Start 10/09/16 at 23:45 Glucagon (Glucagen) 1 mg Q15M PRN IM DECREASED GLUCOSE; Start 10/09/16 at 23:45 Glucose (Glutose) 15 gm Q15M PRN BUCCAL DECREASED GLUCOSE; Start 10/09/16 at 23: 45 Metoclopramide HCl (Reglan) 10 mg Q6H PRN IV NAUSEA AND/OR VOMITING; Start 04/18 at 00:00 Morphine Sulfate 4 mg 4 mg Q3 PRN IV SEVERE PAIN LEVEL 7-10 Last administered on 10/13/16 13:36; Admin Dose 4 MG; Start 10/10/16 at 03:00 Piperacillin Sod/ Tazobactam Sod (Zosyn 3.375gm/ 100 ml (Pmx)) 100 ml @ 200 mls /hr Q6 IVPB Last administered on 10/20/16 11:59; Admin Dose 200 MLS/HR; Start 10/10/16 at 18:00 Acetaminophen/ Hydrocodone Bitart ([place] (10/325)) 1 tab Q4H PRN PO PAIN Last administered on 10/12/16 13:23; Admin Dose 1 TAB; Start 10/11/16 at 06:00; Status Future Hold Diphenhydramine HCl (Benadryl) 25 mg Q6H PRN IV ITCHING; Start 10/11/16 at 06: 00 Diagnostic Test (Pha) (Accu-Chek) 1 ea 02 XX ; Start 10/12/16 at 02:00 Ondansetron HCl 4 mg 4 mg Q6H PRN IV NAUSEA AND/OR VOMITING; Start 10/13/16 at 19:00 Potassium Chloride/Dextrose/ Sod Cl 1,000 ml @ 75 mls/hr [id number] IV Last administered on 10/20/16 12:02; Admin Dose 75 MLS/HR; Start 10/13/16 at 18:58 Acetaminophen (Ofirmev 1000mg/ 100ml Iv) 100 ml @ 400 mls/hr Q6H PRN IVPB PAIN ; Start 10/13/16 at 19:00 Hydralazine HCl (Apresoline) 10 mg Q6H PRN IV SBP GREATER THAN 160 Last administered on 10/14/16 10:23; Admin Dose 10 MG; Start 10/14/16 at 10:30 Clonidine HCl (Catapres-Tts 1 Patch) 1 patch Q7D TRANSDERM Last administered on 10/14/16 11:19; Admin Dose 1 PATCH; Start 10/14/16 at 11:00 Pantoprazole (Protonix Iv) 40 mg DAILY@06 IV Last administered on 10/20/16 05: 29; Admin Dose 40 MG; Start 10/15/16 at 06:00 Insulin Aspart (Novolog Insulin Pen) NOVOLOG *MILD* ALGORI... Q4 SC Last administered on 10/19/16 05:46; Admin Dose 1 UNIT; Start 10/14/16 at 21:00 Phenol (Cepastat Lozenge) 1 lozenge Q4H PRN MT pain Last administered on 16:19; Admin Dose 1 LOZENGE; Start 10/16/16 at 14:00 Levothyroxine Sodium 75 mcg 75 mcg DAILY@06 IV Last administered on 10/20/16 05:29; Admin Dose 75 MCG; Start 10/18/16 at 06:00 Magnesium Sulfate/ Sodium Chloride (Magnesium Sulfate/NS) 106 ml @ 35.333 mls/ hr ONCE ONCE IVPB Last administered on 10/20/16 12:37; Admin Dose 35.333 MLS/ HR; Start 10/20/16 at 12:30; Stop 10/20/16 at 15:29 Ketorolac Tromethamine (Toradol) 30 mg Q6H IV Last administered on 10/20/16 12 :56; Admin Dose 30 MG; Start 10/20/16 at 13:00; Stop 10/23/16 at 12:59 UGO BRYANT MD Oct 20, 2016 13:37
--- NOTE | 2016-10-20 17:28 | PN ---
DATE: 10/20/2016 Status post laparotomy, placement of transverse loop colostomy in the left upper quadrant. SUBJECTIVE: Complains of pain in the lower abdomen. NG tube is in place. Physical therapy helping the patient to get out of bed and walk. OBJECTIVE GENERAL: Alert, awake, oriented. VITAL SIGNS: Temperature 99.4, heart rate 76, respirations 16, blood pressure 127/56, saturation 94 % on 2 liters high flow nasally. LABORATORY DATA: WBC yesterday 5,300, today not done. Chemistry: Sodium, potassium, normal. BUN and creatinine, normal. ABDOMEN: Slightly distended, mainly on the right side. Bowel sounds hypoactive. Colostomy not fun ctioning yet. EXTREMITIES: Legs no calf tenderness. ASSESSMENT AND PLAN: A 61-year-old female status post laparotomy and placement of a diverting loop transverse colostomy. diverticulitis and diverticular abscesses and colovesical fistula. STATUS: The patient is relatively stable, but the colostomy has no started functioning yet. PLAN: Continue current care. Dictated By: TICO PUCKETT MD PS/ELINA Conf#: [id number] DID#: [id number]
[2016-10-20 20:22] VITALS: BP 113/58; RESP 18
[2016-10-21] MEDS: PIPER-TAZO 3.375 GM IV (PMX) 100 ML IVPB SCH ×4 (00:25→19:04)
[2016-10-21] MEDS: KETOROLAC 30 MG INJ IV SCH ×4 (00:58→19:04)
[2016-10-21] MEDS: INSULIN ASPART [NOVOLOG] 3 ML PEN SC SCH ×6 (01:00→21:00)
[2016-10-21] MEDS: ACCUCHECK AT 2AM (Patients on SS coverage) XX SCH (01:46)
[2016-10-21] MEDS: CEPASTAT LOZENGE MT PRN (02:18)
[2016-10-21] MEDS: morphine 2 MG INJ IV PRN ×5 (02:47→22:04)
[2016-10-21] MEDS: D5W-0.45 NACL + KCL 20 MEQ 1,000 ML IV SCH ×3 (03:43→17:16)
[2016-10-21] MEDS: PANTOPRAZOLE 40 MG INJ IV SCH (05:58)
[2016-10-21] MEDS: LEVOTHYROXINE 100 MCG VIAL IV SCH (05:58)
[2016-10-21 06:06] LABS: ADD SCAN DIFF NO
[2016-10-21 06:57] LABS: POTASSIUM 3.5 mmol/L (3.5-5.1)
[2016-10-21 06:59] LABS: CREATININE 0.36 mg/dl (0.44-1.00)
[2016-10-21 07:00] LABS: CALCIUM 8.3 mg/dl (8.4-10.2)
[2016-10-21 07:01] LABS: MAGNESIUM 1.8 mg/dl (1.7-2.5)
[2016-10-21 07:53] VITALS: BP 114/54; PULSE 61; RESP 17
--- NOTE | 2016-10-21 10:54 | PN ---
Date/Time of Note Date/Time of Note DATE: 10/21/16 TIME: 10:52 Assessment/Plan VTE Prophylaxis VTE Prophylaxis Intervention: SCD's Lines/Catheters IV Catheter Type (from Nrsg): Central Line Central line still needed: Yes (IV abx, IVF< pt is NPO ) Urinary Cath still in place: Yes Reason Cath still needed: other (indicate) (Colovesical fistula ) Assessment/Plan Assessment/Plan 1. Acute diverticulitis with perforation causign diverticular abscess status post exploratory laparotomy and placement of diverting transverse colostomy for diversion of fecal stream. The patient also has colovesical fistula, keep jacobs catheter in IV abx zosyn,ID following 2. Lower gastrointestinal bleeding likely secondary to diverticulosis-stable 3. Hypothyroidism Continue Rx 4. Weakness and numbness of the left lower extremity-stable 5. Diabetes-currently stable Continue sliding-scale electrolytes repalcement as needed Prophylaxis: SCDs d/w pt- will need SNF placement on discharge Subjective 24 Hr Interval Summary Free Text/Dictation doing ok, still NPO, NG tube on intermittent suction Exam/Review of Systems Vital Signs Vitals Vital Signs Date Time Temp Pulse Resp B/P Pulse Ox O2 Delivery O2 Flow Rate FiO2 10/21/16 07:53 98.8 61 17 114/54 Nasal Cannula 10/21/16 02:32 2.0 10/20/16 20:22 98 Intake and Output 10/20/16 10/20/16 10/21/16 15:00 23:00 07:00 Intake Total 100 ml 800 ml 750 ml Output Total 550 ml 2150 ml Balance 100 ml 250 ml -1400 ml Exam Constitutional: alert Respiratory: clear to auscultation Cardiovascular: regular rate and rhythm Gastrointestinal: soft, + diverting colostomy No distended Musculoskeletal: nl extremities to inspection Results Result Diagram: 10/19/16 0512 10/21/16 0525 Results 24 hrs Laboratory Tests Test 10/20/16 13:06 10/20/16 17:03 10/20/16 21:08 10/21/16 01:06 Bedside Glucose 95 100 98 92 Test 10/21/16 05:12 10/21/16 05:25 10/21/16 09:09 Bedside Glucose 102 101 Sodium Level 140 Potassium Level 3.5 Chloride Level 100 Carbon Dioxide Level 31 Anion Gap 13 Blood Urea Nitrogen 3 L Creatinine 0.36 L Glucose Level 106 Calcium Level 8.3 L Magnesium Level 1.8 Medications Medications Current Medications Miscellaneous Information 1 ea NOTE XX ; Start 10/09/16 at 23:45 Glucose (Glutose) 15 gm Q15M PRN PO DECREASED GLUCOSE; Start 10/09/16 at 23:45 Glucose (Glutose) 22.5 gm Q15M PRN PO DECREASED GLUCOSE; Start 10/09/16 at 23:45 Dextrose (D50w Syringe) 25 ml Q15M PRN IV DECREASED GLUCOSE; Start 10/09/16 at 23:45 Dextrose (D50w Syringe) 50 ml Q15M PRN IV DECREASED GLUCOSE; Start 10/09/16 at 23:45 Glucagon (Glucagen) 1 mg Q15M PRN IM DECREASED GLUCOSE; Start 10/09/16 at 23:45 Glucose (Glutose) 15 gm Q15M PRN BUCCAL DECREASED GLUCOSE; Start 10/09/16 at 23: 45 Metoclopramide HCl (Reglan) 10 mg Q6H PRN IV NAUSEA AND/OR VOMITING; Start 04/18 at 00:00 Morphine Sulfate 4 mg 4 mg Q3 PRN IV SEVERE PAIN LEVEL 7-10 Last administered on 10/21/16 08:28; Admin Dose 4 MG; Start 10/10/16 at 03:00 Piperacillin Sod/ Tazobactam Sod (Zosyn 3.375gm/ 100 ml (Pmx)) 100 ml @ 200 mls /hr Q6 IVPB Last administered on 10/21/16 05:58; Admin Dose 200 MLS/HR; Start 10/10/16 at 18:00 Acetaminophen/ Hydrocodone Bitart ([place] (10/325)) 1 tab Q4H PRN PO PAIN Last administered on 10/12/16 13:23; Admin Dose 1 TAB; Start 10/11/16 at 06:00; Status Future Hold Diphenhydramine HCl (Benadryl) 25 mg Q6H PRN IV ITCHING; Start 10/11/16 at 06: 00 Diagnostic Test (Pha) (Accu-Chek) 1 ea 02 XX ; Start 10/12/16 at 02:00 Ondansetron HCl 4 mg 4 mg Q6H PRN IV NAUSEA AND/OR VOMITING; Start 10/13/16 at 19:00 Potassium Chloride/Dextrose/ Sod Cl 1,000 ml @ 75 mls/hr [id number] IV Last administered on 10/21/16 03:43; Admin Dose 75 MLS/HR; Start 10/13/16 at 18:58 Acetaminophen (Ofirmev 1000mg/ 100ml Iv) 100 ml @ 400 mls/hr Q6H PRN IVPB PAIN ; Start 10/13/16 at 19:00 Hydralazine HCl (Apresoline) 10 mg Q6H PRN IV SBP GREATER THAN 160 Last administered on 10/14/16 10:23; Admin Dose 10 MG; Start 10/14/16 at 10:30 Clonidine HCl (Catapres-Tts 1 Patch) 1 patch Q7D TRANSDERM Last administered on 10/14/16 11:19; Admin Dose 1 PATCH; Start 10/14/16 at 11:00 Pantoprazole (Protonix Iv) 40 mg DAILY@06 IV Last administered on 10/21/16 05: 58; Admin Dose 40 MG; Start 10/15/16 at 06:00 Insulin Aspart (Novolog Insulin Pen) NOVOLOG *MILD* ALGORI... Q4 SC Last administered on 10/19/16 05:46; Admin Dose 1 UNIT; Start 10/14/16 at 21:00 Phenol (Cepastat Lozenge) 1 lozenge Q4H PRN MT pain Last administered on 02:18; Admin Dose 1 LOZENGE; Start 10/16/16 at 14:00 Levothyroxine Sodium (Synthroid Iv) 75 mcg DAILY@06 IV Last administered on 05:58; Admin Dose 75 MCG; Start 10/18/16 at 06:00 Ketorolac Tromethamine (Toradol) 30 mg Q6H IV Last administered on 10/21/16 07 :03; Admin Dose 30 MG; Start 10/20/16 at 13:00; Stop 10/23/16 at 12:59 UGO BRYANT MD Oct 21, 2016 10:54
[2016-10-21 13:02] LABS: ABNORMAL IP MESSAGE 1; BASOPHILS % 0.5 % (0.0-2.0); EOSINOPHILS # 0.2 10^3/ul (0.0-0.5); EOSINOPHILS % 2.7 % (0.0-7.0); HEMATOCRIT 28.5 % (37.0-47.0); HEMOGLOBIN 8.2 g/dl (12.0-16.0); LYMPHOCYTES # 1.1 10^3/ul (0.8-2.9); LYMPHOCYTES % 18.4 % (15.0-51.0); MEAN CORPUSCULAR HEMOGLOBIN 25.6 pg (29.0-33.0); MEAN CORPUSCULAR HGB CONC 28.8 g/dl (32.0-37.0); MEAN CORPUSCULAR VOLUME 89.1 fl (82.0-101.0); MEAN PLATELET VOLUME 8.4 fl (7.4-10.4); MONOCYTE # 0.4 10^3/ul (0.3-0.9); MONOCYTES % 7.6 % (0.0-11.0); NEUTROPHIL # 4.1 10^3/ul (1.6-7.5); NEUTROPHILS % 70.6 % (39.0-77.0); PLATELET COUNT 392 10^3/UL (140-415); RED CELL DISTRIBUTION WIDTH 15.7 % (11.5-14.5); WHITE BLOOD COUNT 5.8 10^3/ul (4.8-10.8)
[2016-10-21] MEDS: CLONIDINE 0.1 MG/24 HR PATCH TRANSDERM SCH (13:12)
[2016-10-21 17:40] VITALS: BP 135/52; PULSE 56; RESP 14
[2016-10-21 20:48] VITALS: BP 129/58; RESP 20
[2016-10-22] MEDS: D5W-0.45 NACL + KCL 20 MEQ 1,000 ML IV SCH ×2 (00:18→11:05)
[2016-10-22] MEDS: KETOROLAC 30 MG INJ IV SCH ×3 (00:30→13:00)
[2016-10-22] MEDS: PIPER-TAZO 3.375 GM IV (PMX) 100 ML IVPB SCH ×4 (00:30→17:41)
[2016-10-22] MEDS: INSULIN ASPART [NOVOLOG] 3 ML PEN SC SCH ×6 (00:33→20:24)
[2016-10-22] MEDS: DIPHENHYDRAMINE 50 MG INJ IV PRN (01:59)
[2016-10-22] MEDS: ACCUCHECK AT 2AM (Patients on SS coverage) XX SCH (02:00)
[2016-10-22] MEDS: morphine 2 MG INJ IV PRN ×3 (03:50→12:37)
--- NOTE | 2016-10-22 05:32 | PN ---
DATE: 10/21/2016 SUBJECTIVE: No new complaints. OBJECTIVE: VITAL SIGNS: Temperature 98.4, heart rate 67, respirations 20, blood pressure 129/58, saturation 95 % room air. HEART: Regular. LUNGS: Clear. ABDOMEN: Soft, mildly distended. GENITOURINARY: Colostomy has yellowish stool in it. MUSCULOSKELETAL: Legs: No calf tenderness. LABORATORY DATA: Sodium and potassium normal, BUN and creatinine normal. WBC 5800 with 70% neutrop hils. Hemoglobin 8.2, hematocrit 28.5. Platelet count is 392. ASSESSMENT: A 61-year-old female status post laparotomy, placement of a diverting transverse loop c olostomy, postop day #7. Today, patient's colostomy has started functioning, has passed some stool and gas. Abdomen is soft. PLAN: 1. Remove NG tube (was done). Start the patient on ice chips 1 cup q.8 hours. 2. Physical therapist to assist in ambulation. today for the first time. If the patient sta rts walking, we will discontinue the Bird probably tomorrow. Dressing changed. Wound looks clear. 3. Continue current care as was mentioned above. Dictated By: TICO GUADARRAMA/ELINA Conf#: [id number] DID#: [id number]
[2016-10-22 05:51] LABS: POTASSIUM 3.7 mmol/L (3.5-5.1)
[2016-10-22 05:53] LABS: CREATININE 0.47 mg/dl (0.44-1.00)
[2016-10-22 05:54] LABS: CALCIUM 8.2 mg/dl (8.4-10.2)
[2016-10-22] MEDS: PANTOPRAZOLE 40 MG INJ IV SCH (06:05)
[2016-10-22] MEDS: LEVOTHYROXINE 100 MCG VIAL IV SCH (06:05)
[2016-10-22 07:17] VITALS: BP 118/58; RESP 18
--- NOTE | 2016-10-22 11:23 | PN ---
Date/Time of Note Date/Time of Note DATE: 10/22/16 TIME: 11:22 Assessment/Plan VTE Prophylaxis VTE Prophylaxis Intervention: SCD's Assessment/Plan Chief Complaint/Hosp Course 1. Acute diverticulitis with perforation causing diverticular abscess status post exploratory laparotomy and placement of diverting transverse colostomy for diversion of fecal stream. The patient also has colovesical fistula, keep jacobs catheter in IV abx zosyn,ID following 2. Lower gastrointestinal bleeding likely secondary to diverticulosis-stable 3. Hypothyroidism Continue Rx 4. Weakness and numbness of the left lower extremity-stable 5. Diabetes-currently stable Continue sliding-scale electrolytes repalcement as needed Prophylaxis: SCDs d/w pt- will need SNF placement on discharge Problems: Subjective 24 Hr Interval Summary Gastrointestinal: pain Exam/Review of Systems Vital Signs Vitals Vital Signs Date Time Temp Pulse Resp B/P Pulse Ox O2 Delivery O2 Flow Rate FiO2 10/22/16 07:17 98.9 59 18 118/58 99 10/21/16 17:40 Room Air 10/21/16 15:24 2.0 Intake and Output 10/21/16 10/21/16 10/22/16 15:00 23:00 07:00 Intake Total 100 ml 950 ml 650 ml Output Total 0 ml 1800 ml Balance 100 ml 950 ml -1150 ml Exam Constitutional: alert, oriented Respiratory: clear to auscultation Cardiovascular: regular rate and rhythm Gastrointestinal: soft, No distended Musculoskeletal: nl extremities to inspection Results Result Diagram: 10/21/16 0525 10/22/16 0457 Results 24 hrs Laboratory Tests Test 10/21/16 13:10 10/21/16 17:14 10/21/16 21:08 10/22/16 00:32 Bedside Glucose 96 103 94 94 Test 10/22/16 04:57 10/22/16 06:06 10/22/16 09:16 Sodium Level 143 Potassium Level 3.7 Chloride Level 105 Carbon Dioxide Level 32 H Anion Gap 10 Blood Urea Nitrogen 3 L Creatinine 0.47 Glucose Level 93 Calcium Level 8.2 L Bedside Glucose 90 87 Medications Medications Current Medications Miscellaneous Information 1 ea NOTE XX ; Start 10/09/16 at 23:45 Glucose (Glutose) 15 gm Q15M PRN PO DECREASED GLUCOSE; Start 10/09/16 at 23:45 Glucose (Glutose) 22.5 gm Q15M PRN PO DECREASED GLUCOSE; Start 10/09/16 at 23:45 Dextrose (D50w Syringe) 25 ml Q15M PRN IV DECREASED GLUCOSE; Start 10/09/16 at 23:45 Dextrose (D50w Syringe) 50 ml Q15M PRN IV DECREASED GLUCOSE; Start 10/09/16 at 23:45 Glucagon (Glucagen) 1 mg Q15M PRN IM DECREASED GLUCOSE; Start 10/09/16 at 23:45 Glucose (Glutose) 15 gm Q15M PRN BUCCAL DECREASED GLUCOSE; Start 10/09/16 at 23: 45 Metoclopramide HCl (Reglan) 10 mg Q6H PRN IV NAUSEA AND/OR VOMITING; Start 04/18 at 00:00 Morphine Sulfate 4 mg 4 mg Q3 PRN IV SEVERE PAIN LEVEL 7-10 Last administered on 10/22/16 03:50; Admin Dose 4 MG; Start 10/10/16 at 03:00 Piperacillin Sod/ Tazobactam Sod (Zosyn 3.375gm/ 100 ml (Pmx)) 100 ml @ 200 mls /hr Q6 IVPB Last administered on 10/22/16 06:05; Admin Dose 200 MLS/HR; Start 10/10/16 at 18:00 Acetaminophen/ Hydrocodone Bitart ([place] (10/325)) 1 tab Q4H PRN PO PAIN Last administered on 10/12/16 13:23; Admin Dose 1 TAB; Start 10/11/16 at 06:00; Status Future Hold Diphenhydramine HCl (Benadryl) 25 mg Q6H PRN IV ITCHING Last administered on 01:59; Admin Dose 25 MG; Start 10/11/16 at 06:00 Diagnostic Test (Pha) (Accu-Chek) 1 ea 02 XX ; Start 10/12/16 at 02:00 Ondansetron HCl 4 mg 4 mg Q6H PRN IV NAUSEA AND/OR VOMITING; Start 10/13/16 at 19:00 Potassium Chloride/Dextrose/ Sod Cl 1,000 ml @ 75 mls/hr [id number] IV Last administered on 10/22/16 11:05; Admin Dose 75 MLS/HR; Start 10/13/16 at 18:58 Acetaminophen (Ofirmev 1000mg/ 100ml Iv) 100 ml @ 400 mls/hr Q6H PRN IVPB PAIN ; Start 10/13/16 at 19:00 Hydralazine HCl (Apresoline) 10 mg Q6H PRN IV SBP GREATER THAN 160 Last administered on 10/14/16 10:23; Admin Dose 10 MG; Start 10/14/16 at 10:30 Clonidine HCl (Catapres-Tts 1 Patch) 1 patch Q7D TRANSDERM Last administered on 10/21/16 13:12; Admin Dose 1 PATCH; Start 10/14/16 at 11:00 Pantoprazole (Protonix Iv) 40 mg DAILY@06 IV Last administered on 10/22/16 06: 05; Admin Dose 40 MG; Start 10/15/16 at 06:00 Insulin Aspart (Novolog Insulin Pen) NOVOLOG *MILD* ALGORI... Q4 SC Last administered on 10/19/16 05:46; Admin Dose 1 UNIT; Start 10/14/16 at 21:00 Phenol (Cepastat Lozenge) 1 lozenge Q4H PRN MT pain Last administered on 02:18; Admin Dose 1 LOZENGE; Start 10/16/16 at 14:00 Levothyroxine Sodium (Synthroid Iv) 75 mcg DAILY@06 IV Last administered on 06:05; Admin Dose 75 MCG; Start 10/18/16 at 06:00 Ketorolac Tromethamine (Toradol) 30 mg Q6H IV Last administered on 10/22/16 00 :30; Admin Dose 30 MG; Start 10/20/16 at 13:00; Stop 10/23/16 at 12:59 ARAMIS SY Oct 22, 2016 11:23
[2016-10-22 14:47] LABS: INR 1.34; PROTIME 16.7 Sec (12.2-14.2); PT RATIO 1.3
[2016-10-22 14:48] LABS: PARTIAL THROMBOPLASTIN TIME 34.3 Sec (25.0-35.0)
[2016-10-22] MEDS: HYDROmorphONE 1 MG/ML SYG IV PRN ×3 (15:40→23:48)
--- NOTE | 2016-10-22 15:52 | PN ---
DATE: 10/22/2016 Status post laparotomy, placement of transverse colon diverting loop colostomy. Patient was originally admitted because of the rectal bleeding and was found to have diverticulitis, diverticular abscess and rectovaginal and probably rectovesical fistula. Today is postop day #9. SUBJECTIVE: The patient complains of lower abdominal pain. OBJECTIVE: VITAL SIGNS: Temperature 98.9, heart rate 69, respirations 18, blood pressure 118/68, saturation 99% on room air. LABS: WBC 5800, hemoglobin 8.2, hematocrit 28.5, has dropped a little bit comparing to 4 days ago. Four days ago, hemoglobin was 9.1, hematocrit was 30.4. Platelets 392. Chemistry: Sodium, potassium in normal range. BUN, creatinine normal range today. Apparently, the nurse noticed some dark blood in the colostomy bag and I noticed there is maroon-colored blood in the colostomy bag, about 60 to 70 mL. The patient also has had a little bit of the same material ooze and passed the vagina, maybe a total of 20 to 25 mL. I did a rectal examination. There is no blood in the ampulla and rectum Abdomen is soft and slightly distended. No more stool today in the colostomy bag. ASSESSMENT: A 61-year-old woman with a history of diverticulitis for a long time, diverticular abscess, was transferred from another hospital here and colorectal vaginal or colorectal vesical fistula, we are not sure, but something has been reported from barium enema. The patient required exploration. Exploration was done. Please refer to the op report that was dictated by Dr. Jiménez. A transverse loop colostomy in the left upper quadrant was placed. Postop, the patient had problem with pain and it took about 6 to 7 days until colostomy has started functioning 2 days ago. Today, the nurse noticed as I said, some red or dark red material in the colostomy which is of course maroon-colored blood and she is passing a little bit of that material per the vagina through the colovaginal fistula. At this time, I am not sure where she is bleeding from. I change the colostomy bag. The mucosa of the edges of the colostomy is pink and I did a digital examination. There is no active bleeding in the depth of the colostomy. There is possibility that she may be bleeding at the fistula area at the junction of the colovaginal area. For that reason, part of it is coming out from vagina and part of it is backing up and coming through the colostomy or it is possible that she is having another bleeding, somewhere like in the ascending colon or in the stomach and now changes to maroon shade blood and coming out of colostomy and part of it coming out of the vagina. PLAN: Continue current care. Keep the patient n.p.o. except ice chips. Dr. Jiménez already has ordered a transfusion of 2 units of packed cells. Will keep 2 more units on stand. We will check the PT, PTT ____. Will repeat H and H every 8 hours. We will monitor the blood loss and as needed, will give blood transfusion. In the extreme case, if she continues to really bleed fresh blood, and then we will get our GI colleagues to possibly do EGD and if possible , to do colonoscopy and according to findings, we will proceed with the necessary steps. This plan was decided between me and Dr. Jiménez. Dictated By: TICO GUADARRAMA/NTS Conf#: [id number] DID#: [id number] MTDD
[2016-10-22 19:39] VITALS: BP 157/65; RESP 20
[2016-10-22 20:29] LABS: HEMATOCRIT 28.8 % (37.0-47.0); HEMOGLOBIN 8.9 g/dl (12.0-16.0)
[2016-10-23] MEDS: PIPER-TAZO 3.375 GM IV (PMX) 100 ML IVPB SCH ×5 (00:32→23:57)
[2016-10-23] MEDS: INSULIN ASPART [NOVOLOG] 3 ML PEN SC SCH ×5 (00:37→18:00)
[2016-10-23] MEDS: ACCUCHECK AT 2AM (Patients on SS coverage) XX SCH (01:18)
[2016-10-23] MEDS: HYDROmorphONE 1 MG/ML SYG IV PRN ×5 (03:30→20:32)
[2016-10-23] MEDS: D5W-0.45 NACL + KCL 20 MEQ 1,000 ML IV SCH ×4 (03:32→20:33)
[2016-10-23 04:26] LABS: ADD SCAN DIFF NO
[2016-10-23 04:28] LABS: BASOPHILS % 0.6 % (0.0-2.0); EOSINOPHILS # 0.2 10^3/ul (0.0-0.5); EOSINOPHILS % 3.1 % (0.0-7.0); HEMATOCRIT 30.6 % (37.0-47.0); HEMOGLOBIN 9.8 g/dl (12.0-16.0); LYMPHOCYTES # 1.6 10^3/ul (0.8-2.9); LYMPHOCYTES % 24.5 % (15.0-51.0); MEAN CORPUSCULAR HEMOGLOBIN 27.4 pg (29.0-33.0); MEAN CORPUSCULAR VOLUME 85.5 fl (82.0-101.0); MEAN PLATELET VOLUME 8.3 fl (7.4-10.4); MONOCYTE # 0.6 10^3/ul (0.3-0.9); MONOCYTES % 8.8 % (0.0-11.0); NEUTROPHIL # 4.2 10^3/ul (1.6-7.5); NEUTROPHILS % 62.7 % (39.0-77.0); PLATELET COUNT 359 10^3/UL (140-415); RED BLOOD COUNT 3.58 10^6/ul (4.20-5.40); RED CELL DISTRIBUTION WIDTH 15.2 % (11.5-14.5); WHITE BLOOD COUNT 6.7 10^3/ul (4.8-10.8)
[2016-10-23 04:46] LABS: CREATININE 0.42 mg/dl (0.44-1.00); POTASSIUM 3.3 mmol/L (3.5-5.1)
[2016-10-23] MEDS: LEVOTHYROXINE 100 MCG VIAL IV SCH (05:05)
[2016-10-23] MEDS: PANTOPRAZOLE 40 MG INJ IV SCH (05:05)
[2016-10-23 07:19] VITALS: BP 143/65; RESP 18
[2016-10-23] MEDS: ACETAMINOPHEN 1000MG/100ML IV 100 ML IVPB PRN (09:27)
[2016-10-23] MEDS ORDERED: POTASSIUM CHLORIDE 250 ML IVPB SCH (15:00)
--- NOTE | 2016-10-23 17:49 | PN ---
Date/Time of Note Date/Time of Note DATE: 10/23/16 TIME: 17:38 Assessment/Plan VTE Prophylaxis VTE Prophylaxis Intervention: SCD's Assessment/Plan Chief Complaint/Hosp Course 1. Acute diverticulitis with perforation causing diverticular abscess status post exploratory laparotomy and placement of diverting transverse colostomy for diversion of fecal stream. The patient also has colovesical fistula, keep jacobs catheter in IV abx zosyn,ID following 2. GIB-blood noted in the ostomy bag -D/W GI 3. Hypothyroidism Continue Rx 4. Weakness and numbness of the left lower extremity-stable 5. Diabetes-currently stable Continue sliding-scale 6. Ileus Prophylaxis: SCDs d/w pt- will need SNF placement on discharge Problems: Subjective 24 Hr Interval Summary Constitutional: no complaints Exam/Review of Systems Vital Signs Vitals Vital Signs Date Time Temp Pulse Resp B/P Pulse Ox O2 Delivery O2 Flow Rate FiO2 10/23/16 07:19 99.4 54 18 143/65 95 10/21/16 17:40 Room Air 10/21/16 15:24 2.0 Intake and Output 10/22/16 10/22/16 10/23/16 15:00 23:00 07:00 Intake Total 550 ml 550 ml 1250 ml Output Total 350 ml Balance 550 ml 200 ml 1250 ml Exam Constitutional: alert, oriented Respiratory: clear to auscultation Cardiovascular: regular rate and rhythm Gastrointestinal: soft, No distended Musculoskeletal: nl extremities to inspection Results Result Diagram: 10/23/16 1316 10/23/16 0400 Results 24 hrs Laboratory Tests Test 10/22/16 17:40 10/22/16 20:19 10/22/16 20:20 10/23/16 00:31 Bedside Glucose 79 86 81 Hemoglobin 8.9 L Hematocrit 28.8 L Test 10/23/16 04:00 10/23/16 05:17 10/23/16 09:16 10/23/16 13:16 White Blood Count 6.7 Red Blood Count 3.58 L Hemoglobin 9.8 L Hematocrit 30.6 L 30.3 L Mean Corpuscular Volume 85.5 Mean Corpuscular Hemoglobin 27.4 L Mean Corpuscular Hemoglobin Concent 32.0 Red Cell Distribution Width 15.2 H Platelet Count 359 Mean Platelet Volume 8.3 Neutrophils % 62.7 Lymphocytes % 24.5 Monocytes % 8.8 Eosinophils % 3.1 Basophils % 0.6 Nucleated Red Blood Cells % 0.0 Neutrophils # 4.2 Lymphocytes # 1.6 Monocytes # 0.6 Eosinophils # 0.2 Basophils # 0.0 Nucleated Red Blood Cells # 0.0 Sodium Level 138 Potassium Level 3.3 L Chloride Level 107 Carbon Dioxide Level 27 Anion Gap 7 L Blood Urea Nitrogen 4 L Creatinine 0.42 L Glucose Level 96 Calcium Level 8.0 L Bedside Glucose 91 96 Medications Medications Current Medications Miscellaneous Information 1 ea NOTE XX ; Start 10/09/16 at 23:45 Glucose (Glutose) 15 gm Q15M PRN PO DECREASED GLUCOSE; Start 10/09/16 at 23:45 Glucose (Glutose) 22.5 gm Q15M PRN PO DECREASED GLUCOSE; Start 10/09/16 at 23:45 Dextrose (D50w Syringe) 25 ml Q15M PRN IV DECREASED GLUCOSE; Start 10/09/16 at 23:45 Dextrose (D50w Syringe) 50 ml Q15M PRN IV DECREASED GLUCOSE; Start 10/09/16 at 23:45 Glucagon (Glucagen) 1 mg Q15M PRN IM DECREASED GLUCOSE; Start 10/09/16 at 23:45 Glucose (Glutose) 15 gm Q15M PRN BUCCAL DECREASED GLUCOSE; Start 10/09/16 at 23: 45 Metoclopramide HCl 10 mg 10 mg Q6H PRN IV NAUSEA AND/OR VOMITING; Start at 00:00 Piperacillin Sod/ Tazobactam Sod (Zosyn 3.375gm/ 100 ml (Pmx)) 100 ml @ 200 mls /hr Q6 IVPB Last administered on 10/23/16 11:27; Admin Dose 200 MLS/HR; Start 10/10/16 at 18:00 Acetaminophen/ Hydrocodone Bitart ([place] ()) 1 tab Q4H PRN PO PAIN Last administered on 10/12/16 13:23; Admin Dose 1 TAB; Start 10/11/16 at 06:00; Status Future Hold Diphenhydramine HCl (Benadryl) 25 mg Q6H PRN IV ITCHING Last administered on 01:59; Admin Dose 25 MG; Start 10/11/16 at 06:00 Diagnostic Test (Pha) (Accu-Chek) 1 ea 02 XX ; Start 10/12/16 at 02:00 Ondansetron HCl 4 mg 4 mg Q6H PRN IV NAUSEA AND/OR VOMITING; Start 10/13/16 at 19:00 Potassium Chloride/Dextrose/ Sod Cl (D5-1/2ns + KCl 20 Meq) 1,000 ml @ 75 mls/ hr [id number] IV Last administered on 10/23/16 03:32; Admin Dose 75 MLS/HR; Start 10/13/16 at 18:58 Hydralazine HCl (Apresoline) 10 mg Q6H PRN IV SBP GREATER THAN 160 Last administered on 10/14/16 10:23; Admin Dose 10 MG; Start 10/14/16 at 10:30 Clonidine HCl (Catapres-Tts 1 Patch) 1 patch Q7D TRANSDERM Last administered on 10/21/16 13:12; Admin Dose 1 PATCH; Start 10/14/16 at 11:00 Pantoprazole (Protonix Iv) 40 mg DAILY@06 IV Last administered on 10/23/16 05: 05; Admin Dose 40 MG; Start 10/15/16 at 06:00 Phenol (Cepastat Lozenge) 1 lozenge Q4H PRN MT pain Last administered on 02:18; Admin Dose 1 LOZENGE; Start 10/16/16 at 14:00 Levothyroxine Sodium (Synthroid Iv) 75 mcg DAILY@06 IV Last administered on 05:05; Admin Dose 75 MCG; Start 10/18/16 at 06:00 Hydromorphone HCl 0.5 mg 0.5 mg Q4H PRN IV PAIN Last administered on 10/23/16 16:19; Admin Dose 0.5 MG; Start 10/22/16 at 14:00 Acetaminophen 100 ml @ 400 mls/hr Q6H PRN IVPB pain Last administered on 09:27; Admin Dose 400 MLS/HR; Start 10/22/16 at 15:00 Potassium Chloride (KCl 40 MEQ/250 ML NS) 250 ml @ 62.5 mls/hr ONCE IVPB Last administered on 10/23/16 16:19; Admin Dose 62.5 MLS/HR; Start 10/23/16 at 15:00 ; Stop 10/23/16 at 18:59 Insulin Aspart (Novolog Insulin Pen) NOVOLOG *MILD* ALGORI... Q6 SC ; Start at 18:00 ARAMIS SY Oct 23, 2016 17:48
[2016-10-23 20:00] VITALS: BP 131/63; RESP 18
[2016-10-24] MEDS: HYDROmorphONE 1 MG/ML SYG IV PRN ×6 (00:28→20:33)
[2016-10-24] MEDS: ACCUCHECK AT 2AM (Patients on SS coverage) XX SCH (01:56)
--- NOTE | 2016-10-24 02:58 | RADRPT ---
PROCEDURE: XR Abdomen. CLINICAL INDICATION: Postoperative abdominal distension. TECHNIQUE: AP abdomen x-ray. COMPARISON: Abdomen series dated 10/19/2016. FINDINGS: Previously seen nasogastric tube is remote Small bowel is not narrow caliber, and some loops contain mild air in the bilateral abdomen, suggest ing a mild postoperative ileus. Otherwise, there is no evidence of obstruction. There are no abnorma l calcifications overlying the urinary tracts. Mild left lung base atelectasis versus airspace disease. Right lung base is clear. Suspected cardio megaly. Surgical changes of bilateral laminectomies at the L3-L5 levels, similar in appearance to the prior examination. IMPRESSION: Mild postoperative ileus in the bilateral abdomen, left greater than right. RPTAT: [facility] Physician Triston Date Time Electronically viewed and signed by Physician Triston on 10/24/2016 02:58 RS/
[2016-10-24 04:12] LABS: ADD SCAN DIFF NO
[2016-10-24 04:18] LABS: BASOPHIL # 0.1 10^3/ul (0.0-0.1); EOSINOPHILS # 0.3 10^3/ul (0.0-0.5); EOSINOPHILS % 4.6 % (0.0-7.0); HEMATOCRIT 33.1 % (37.0-47.0); HEMOGLOBIN 10.2 g/dl (12.0-16.0); LYMPHOCYTES # 1.7 10^3/ul (0.8-2.9); LYMPHOCYTES % 26.9 % (15.0-51.0); MEAN CORPUSCULAR HEMOGLOBIN 26.6 pg (29.0-33.0); MEAN CORPUSCULAR HGB CONC 30.8 g/dl (32.0-37.0); MEAN CORPUSCULAR VOLUME 86.2 fl (82.0-101.0); MEAN PLATELET VOLUME 8.4 fl (7.4-10.4); MONOCYTE # 0.6 10^3/ul (0.3-0.9); MONOCYTES % 9.5 % (0.0-11.0); NEUTROPHIL # 3.5 10^3/ul (1.6-7.5); NEUTROPHILS % 57.7 % (39.0-77.0); PLATELET COUNT 353 10^3/UL (140-415); RED BLOOD COUNT 3.84 10^6/ul (4.20-5.40); RED CELL DISTRIBUTION WIDTH 15.7 % (11.5-14.5); WHITE BLOOD COUNT 6.1 10^3/ul (4.8-10.8)
[2016-10-24 04:34] LABS: CALCIUM 8.3 mg/dl (8.4-10.2); CREATININE 0.43 mg/dl (0.44-1.00); MAGNESIUM 1.4 mg/dl (1.7-2.5); PHOSPHORUS 3.7 mg/dl (2.5-4.9); POTASSIUM 3.7 mmol/L (3.5-5.1)
[2016-10-24] MEDS: D5W-0.45 NACL + KCL 20 MEQ 1,000 ML IV SCH ×2 (05:38→12:07)
[2016-10-24] MEDS: PIPER-TAZO 3.375 GM IV (PMX) 100 ML IVPB SCH ×2 (05:55→12:04)
[2016-10-24] MEDS: LEVOTHYROXINE 100 MCG VIAL IV SCH (05:55)
[2016-10-24] MEDS: PANTOPRAZOLE 40 MG INJ IV SCH (05:55)
[2016-10-24] MEDS: INSULIN ASPART [NOVOLOG] 3 ML PEN SC SCH ×4 (06:00→18:00)
--- NOTE | 2016-10-24 07:20 | PN ---
DATE: 10/23/2016 PROGRESS NOTE FOLLOWUP Status post laparotomy and placement of diverting loop and distal transverse colostomy to advance the fistula closure between the colon and vagina, and colon and the bladder. SUBJECTIVE: Feels slightly better. No nausea, no vomiting, still has some bleeding from vagina and also minimal bleeding from colostomy. OBJECTIVE VITAL SIGNS: Temperature 99.4, heart rate 64, respiration 18, blood pressure 143/65, saturation 95% room air. ABDOMEN: Soft. Slightly distended. Colostomy bag has greenish liquid stool in it. Minimal brownish blood also pasting around the colostomy bag. The pad that is covering the vagina shows some spotting of the brown blood on the pad. No active bleeding, no active red blood can be seen. No clot can be seen. EXTREMITIES: Legs no calf tenderness. LABORATORY DATA: She has received 2 units of blood, after that the hemoglobin is 9.8 and hematocrit is 30.5. Platelet count is 359. Chemistry: Potassium 3.3 low, BUN 4, creatinine 0.42, POC glucose 96. ASSESSMENT AND PLAN: A 61-year-old female transferred from another hospital because of gastrointestinal bleeding, was found to have diverticulitis, diverticulosis and 2 diverticular abscesses. Antibiotic was started and also somehow the impression was the patient has colovaginal or colorectal fistula, therefore, patient was a candidate for diversion of the fecal stream and drainage of the abscesses. Laparotomy was performed by Dr. Jiménez, and I assisted him. There was severe adhesion in the pelvis, very difficult to dissect. So diverting transverse loop colostomy was placed. Eventually after 6 days colostomy started functioning. Yesterday the nurses noticed that there was some brownish blood in the bag and I saw that too, some spotting from the vagina so that proves that the patient has a colovaginal fistula. Today is better. The patient has received 2 units of blood and hemoglobin is ____, hematocrit ____. Question is that where is this bleeding coming from, is this from area of the fistula or is it from distal sigmoid colon or is this from right colon or from stomach? I called Dr. Duarte, the hospitalist who admitted the patient, and discussed about it. I request a GI consultation and possible EGD and possible colonoscopy to rule out any other pathology. He agrees and he is going to get a hold of the GI colleagues who are covering the system. PLAN: Continue current care. Start patient on clear liquids. Dictated By: TICO PUCKETT MD PS/ELINA Conf#: [id number] DID#: [id number] MTDD
[2016-10-24 07:45] VITALS: BP 162/70; RESP 20
--- NOTE | 2016-10-24 14:11 | PN ---
Date/Time of Note Date/Time of Note DATE: 10/24/16 TIME: 14:10 Assessment/Plan VTE Prophylaxis VTE Prophylaxis Intervention: SCD's Assessment/Plan Chief Complaint/Hosp Course 1. Acute diverticulitis with perforation causing diverticular abscess status post exploratory laparotomy and placement of diverting transverse colostomy for diversion of fecal stream. The patient also has colovesical fistula, keep jacobs catheter in IV abx zosyn,ID following 2. Likely GIB-dark blood noted in the ostomy bag -D/W GI 3. Hypothyroidism Continue Rx 4. Weakness and numbness of the left lower extremity-stable 5. Diabetes-currently stable Continue sliding-scale 6. Ileus Prophylaxis: SCDs d/w pt- will need SNF placement on discharge Problems: Subjective 24 Hr Interval Summary Gastrointestinal: pain Exam/Review of Systems Vital Signs Vitals Vital Signs Date Time Temp Pulse Resp B/P Pulse Ox O2 Delivery O2 Flow Rate FiO2 10/24/16 07:45 98.8 52 20 162/70 94 10/21/16 17:40 Room Air 10/21/16 15:24 2.0 Intake and Output 10/23/16 10/23/16 10/24/16 15:00 23:00 07:00 Intake Total 200 ml 1200 ml 700 ml Output Total 1450 ml 2350 ml Balance 200 ml -250 ml -1650 ml Exam Constitutional: alert Respiratory: clear to auscultation Cardiovascular: regular rate and rhythm Gastrointestinal: soft, No distended Musculoskeletal: nl extremities to inspection Results Result Diagram: 10/24/16 1250 10/24/16 0357 Results 24 hrs Laboratory Tests Test 10/23/16 18:20 10/23/16 20:30 10/24/16 00:00 10/24/16 03:57 Bedside Glucose 95 98 Hematocrit 33.1 L 33.1 L White Blood Count 6.1 Red Blood Count 3.84 L Hemoglobin 10.2 L Mean Corpuscular Volume 86.2 Mean Corpuscular Hemoglobin 26.6 L Mean Corpuscular Hemoglobin Concent 30.8 L Red Cell Distribution Width 15.7 H Platelet Count 353 Mean Platelet Volume 8.4 Neutrophils % 57.7 Lymphocytes % 26.9 Monocytes % 9.5 Eosinophils % 4.6 Basophils % 1.0 Nucleated Red Blood Cells % 0.0 Neutrophils # 3.5 Lymphocytes # 1.7 Monocytes # 0.6 Eosinophils # 0.3 Basophils # 0.1 Nucleated Red Blood Cells # 0.0 Sodium Level 137 Potassium Level 3.7 Chloride Level 107 Carbon Dioxide Level 29 Anion Gap 5 L Blood Urea Nitrogen 3 L Creatinine 0.43 L Glucose Level 94 Calcium Level 8.3 L Phosphorus Level 3.7 Magnesium Level 1.4 L Test 10/24/16 06:23 10/24/16 12:10 10/24/16 12:50 Bedside Glucose 82 93 Hematocrit 32.2 L Medications Medications Current Medications Miscellaneous Information 1 ea NOTE XX ; Start 10/09/16 at 23:45 Glucose (Glutose) 15 gm Q15M PRN PO DECREASED GLUCOSE; Start 10/09/16 at 23:45 Glucose (Glutose) 22.5 gm Q15M PRN PO DECREASED GLUCOSE; Start 10/09/16 at 23:45 Dextrose (D50w Syringe) 25 ml Q15M PRN IV DECREASED GLUCOSE; Start 10/09/16 at 23:45 Dextrose (D50w Syringe) 50 ml Q15M PRN IV DECREASED GLUCOSE; Start 10/09/16 at 23:45 Glucagon (Glucagen) 1 mg Q15M PRN IM DECREASED GLUCOSE; Start 10/09/16 at 23:45 Glucose (Glutose) 15 gm Q15M PRN BUCCAL DECREASED GLUCOSE; Start 10/09/16 at 23: 45 Metoclopramide HCl 10 mg 10 mg Q6H PRN IV NAUSEA AND/OR VOMITING; Start at 00:00 Piperacillin Sod/ Tazobactam Sod (Zosyn 3.375gm/ 100 ml (Pmx)) 100 ml @ 200 mls /hr Q6 IVPB Last administered on 10/24/16 12:04; Admin Dose 200 MLS/HR; Start 10/10/16 at 18:00 Acetaminophen/ Hydrocodone Bitart ([place] ()) 1 tab Q4H PRN PO PAIN Last administered on 10/12/16 13:23; Admin Dose 1 TAB; Start 10/11/16 at 06:00; Status Future Hold Diphenhydramine HCl (Benadryl) 25 mg Q6H PRN IV ITCHING Last administered on 01:59; Admin Dose 25 MG; Start 10/11/16 at 06:00 Diagnostic Test (Pha) (Accu-Chek) 1 ea 02 XX ; Start 10/12/16 at 02:00 Ondansetron HCl 4 mg 4 mg Q6H PRN IV NAUSEA AND/OR VOMITING; Start 10/13/16 at 19:00 Potassium Chloride/Dextrose/ Sod Cl (D5-1/2ns + KCl 20 Meq) 1,000 ml @ 75 mls/ hr [id number] IV Last administered on 10/24/16 12:07; Admin Dose 75 MLS/HR; Start 10/13/16 at 18:58 Hydralazine HCl (Apresoline) 10 mg Q6H PRN IV SBP GREATER THAN 160 Last administered on 10/14/16 10:23; Admin Dose 10 MG; Start 10/14/16 at 10:30 Clonidine HCl (Catapres-Tts 1 Patch) 1 patch Q7D TRANSDERM Last administered on 10/21/16 13:12; Admin Dose 1 PATCH; Start 10/14/16 at 11:00 Pantoprazole (Protonix Iv) 40 mg DAILY@06 IV Last administered on 10/24/16 05: 55; Admin Dose 40 MG; Start 10/15/16 at 06:00 Phenol (Cepastat Lozenge) 1 lozenge Q4H PRN MT pain Last administered on 02:18; Admin Dose 1 LOZENGE; Start 10/16/16 at 14:00 Levothyroxine Sodium (Synthroid Iv) 75 mcg DAILY@06 IV Last administered on 05:55; Admin Dose 75 MCG; Start 10/18/16 at 06:00 Hydromorphone HCl 0.5 mg 0.5 mg Q4H PRN IV PAIN Last administered on 10/24/16 12:37; Admin Dose 0.5 MG; Start 10/22/16 at 14:00 Acetaminophen (Ofirmev 1000mg/ 100ml Iv) 100 ml @ 400 mls/hr Q6H PRN IVPB pain Last administered on 10/23/16 09:27; Admin Dose 400 MLS/HR; Start at 15:00 Insulin Aspart (Novolog Insulin Pen) NOVOLOG *MILD* ALGORI... Q6 SC ; Start at 18:00 ARAMIS SY Oct 24, 2016 14:11
--- NOTE | 2016-10-24 14:17 | PN ---
Date/Time of Note Date/Time of Note DATE: 10/24/16 TIME: 14:06 Assessment/Plan VTE Prophylaxis VTE Prophylaxis Intervention: SCD's Lines/Catheters IV Catheter Type (from Nrs): Central Line Central line still needed: Yes Reason Cath still needed: urinary retention Assessment/Plan Assessment/Plan * GI bleed * Upper vs lower GI bleed * Vaginal Bleeding * Sigmoid diverticulitis with abscess controlled Colovesical fistula, Exploratory laparotomy,incision and drainage,transverse loop colostomy * Hyperlipidemia * Major depression * Diabetes mellitus * Plan * EGD and colonoscopy risks and benefit explained to patient and relative agreed with planned procedure * continue present management * pain control * vaginal bleed will defer to primary Subjective 24 Hr Interval Summary Free Text/Dictation * Course reviewed with RN * Patient seen and examined * Complains of camelia colored stool on colostomy * and vaginal bleeding 3 days ago * S/P transverse loop colostomy,I and D of abscess sigmoid with colovesical fistula 10/14/2016 * denies abdominal pain Exam/Review of Systems Vital Signs Vitals Vital Signs Date Time Temp Pulse Resp B/P Pulse Ox O2 Delivery O2 Flow Rate FiO2 10/24/16 07:45 98.8 52 20 162/70 94 10/21/16 17:40 Room Air 10/21/16 15:24 2.0 Intake and Output 10/23/16 10/23/16 10/24/16 15:00 23:00 07:00 Intake Total 200 ml 1200 ml 700 ml Output Total 1450 ml 2350 ml Balance 200 ml -250 ml -1650 ml Exam Constitutional: alert, oriented Eyes: PERRL, nl sclera Neck: non-tender, supple Respiratory: clear to auscultation, diminished breath sounds, normal air movement Cardiovascular: nl pulses, regular rate and rhythm Gastrointestinal: bowel sounds, non-tender, other (colostomy draining greenish stool,dressing dry intact), soft Musculoskeletal: nl extremities to inspection Results Result Diagram: 10/24/16 1250 10/24/16 0357 Results 24 hrs Laboratory Tests Test 10/23/16 18:20 10/23/16 20:30 10/24/16 00:00 10/24/16 03:57 Bedside Glucose 95 98 Hematocrit 33.1 L 33.1 L White Blood Count 6.1 Red Blood Count 3.84 L Hemoglobin 10.2 L Mean Corpuscular Volume 86.2 Mean Corpuscular Hemoglobin 26.6 L Mean Corpuscular Hemoglobin Concent 30.8 L Red Cell Distribution Width 15.7 H Platelet Count 353 Mean Platelet Volume 8.4 Neutrophils % 57.7 Lymphocytes % 26.9 Monocytes % 9.5 Eosinophils % 4.6 Basophils % 1.0 Nucleated Red Blood Cells % 0.0 Neutrophils # 3.5 Lymphocytes # 1.7 Monocytes # 0.6 Eosinophils # 0.3 Basophils # 0.1 Nucleated Red Blood Cells # 0.0 Sodium Level 137 Potassium Level 3.7 Chloride Level 107 Carbon Dioxide Level 29 Anion Gap 5 L Blood Urea Nitrogen 3 L Creatinine 0.43 L Glucose Level 94 Calcium Level 8.3 L Phosphorus Level 3.7 Magnesium Level 1.4 L Test 10/24/16 06:23 10/24/16 12:10 10/24/16 12:50 Bedside Glucose 82 93 Hematocrit 32.2 L Medications Medications Current Medications Miscellaneous Information 1 ea NOTE XX ; Start 10/09/16 at 23:45 Glucose (Glutose) 15 gm Q15M PRN PO DECREASED GLUCOSE; Start 10/09/16 at 23:45 Glucose (Glutose) 22.5 gm Q15M PRN PO DECREASED GLUCOSE; Start 10/09/16 at 23:45 Dextrose (D50w Syringe) 25 ml Q15M PRN IV DECREASED GLUCOSE; Start 10/09/16 at 23:45 Dextrose (D50w Syringe) 50 ml Q15M PRN IV DECREASED GLUCOSE; Start 10/09/16 at 23:45 Glucagon (Glucagen) 1 mg Q15M PRN IM DECREASED GLUCOSE; Start 10/09/16 at 23:45 Glucose (Glutose) 15 gm Q15M PRN BUCCAL DECREASED GLUCOSE; Start 10/09/16 at 23: 45 Metoclopramide HCl 10 mg 10 mg Q6H PRN IV NAUSEA AND/OR VOMITING; Start at 00:00 Piperacillin Sod/ Tazobactam Sod (Zosyn 3.375gm/ 100 ml (Pmx)) 100 ml @ 200 mls /hr Q6 IVPB Last administered on 10/24/16t 12:04; Admin Dose 200 MLS/HR; Start 10/10/16 at 18:00 Acetaminophen/ Hydrocodone Bitart (Revloc ()) 1 tab Q4H PRN PO PAIN Last administered on 10/12/16 13:23; Admin Dose 1 TAB; Start 10/11/16 at 06:00; Status Future Hold Diphenhydramine HCl (Benadryl) 25 mg Q6H PRN IV ITCHING Last administered on 01:59; Admin Dose 25 MG; Start 10/11/16 at 06:00 Diagnostic Test (Pha) (Accu-Chek) 1 ea 02 XX ; Start 10/12/16 at 02:00 Ondansetron HCl 4 mg 4 mg Q6H PRN IV NAUSEA AND/OR VOMITING; Start 10/13/16 at 19:00 Potassium Chloride/Dextrose/ Sod Cl (D5-1/2ns + KCl 20 Meq) 1,000 ml @ 75 mls/ hr [id number] IV Last administered on 10/24/16 12:07; Admin Dose 75 MLS/HR; Start 10/13/16 at 18:58 Hydralazine HCl (Apresoline) 10 mg Q6H PRN IV SBP GREATER THAN 160 Last administered on 10/14/16 10:23; Admin Dose 10 MG; Start 10/14/16 at 10:30 Clonidine HCl (Catapres-Tts 1 Patch) 1 patch Q7D TRANSDERM Last administered on 10/21/16 13:12; Admin Dose 1 PATCH; Start 10/14/16 at 11:00 Pantoprazole (Protonix Iv) 40 mg DAILY@06 IV Last administered on 10/24/16 05: 55; Admin Dose 40 MG; Start 10/15/16 at 06:00 Phenol (Cepastat Lozenge) 1 lozenge Q4H PRN MT pain Last administered on 02:18; Admin Dose 1 LOZENGE; Start 10/16/16 at 14:00 Levothyroxine Sodium (Synthroid Iv) 75 mcg DAILY@06 IV Last administered on 05:55; Admin Dose 75 MCG; Start 10/18/16 at 06:00 Hydromorphone HCl 0.5 mg 0.5 mg Q4H PRN IV PAIN Last administered on 10/24/16 12:37; Admin Dose 0.5 MG; Start 10/22/16 at 14:00 Acetaminophen (Ofirmev 1000mg/ 100ml Iv) 100 ml @ 400 mls/hr Q6H PRN IVPB pain Last administered on 10/23/16t 09:27; Admin Dose 400 MLS/HR; Start at 15:00 Insulin Aspart (Novolog Insulin Pen) NOVOLOG *MILD* ALGORI... Q6 SC ; Start at 18:00 BARBARA WHALEN MD Oct 24, 2016 14:16
[2016-10-24] MEDS ORDERED: MAGNESIUM SULFATE 4 GM/100 ML 100 ML IVPB ONE (15:00)
[2016-10-24] MEDS ORDERED: BISACODYL (EC) 5 MG TAB PO ONE (15:30)
--- NOTE | 2016-10-24 15:31 | PN ---
DATE: 10/24/2016 SUBJECTIVE: The patient states that she still has some bleeding from vagina. Colostomy is function ing. No nausea, no vomiting. OBJECTIVE GENERAL: The patient is awake, alert, oriented. VITAL SIGNS: Temperature 98.8, heart rate 52, respirations 20, blood pressure 162/70, saturation 94 % on room air. LABORATORY: Hematocrit has been stable at 32 in the past 24 hours. Sodium, potassium normal. BUN and creatinine normal. Abdomen is soft. Colostomy bag has a greenish brownish liquidy stool in it. Slight brownish blood also smearing the wall of the back. The patch from the vagina was examined. There is a spot of the brownish discoloration over the pad which is probably 2 x 3 cm every 3-4 hours. It is not fresh bl eeding. ASSESSMENT AND PLAN: Status post laparotomy with placement of diverting loop colostomy and status o f his colitis with reticular abscess and rectovaginal fistula. The patient has had several episodes of bleeding in the past year. Now again, there has been no evidence of bleeding, but we do not kno w where the blood is coming from. It appears to be maroon colored blood and brownish blood so I hav e talked to Dr. Duarte, primary physician. He has washed off the suture for endoscopy or possibly colonoscopy to find out what is the source of bleeding. The patient is n.p.o. and awaiting for procedure to be done today. Dictated By: TICO PUCKETT MD PS/ELINA Conf#: [id number] DID#: [id number]
[2016-10-24] MEDS ORDERED: MAGNESIUM CITRATE 300 ML BTL PO ONE (17:30)
[2016-10-24] MEDS ORDERED: POLYETHYLENE GLYCOL 3350 119 GM POWDER PO ONE (18:30)
[2016-10-24 19:00] VITALS: BP 134/63; RESP 20
--- NOTE | 2016-10-24 19:33 | CONS ---
DATE OF ADMISSION: 10/09/2016 DATE OF CONSULTATION: 10/24/2016 TYPE OF CONSULTATION: Infectious disease. REASON FOR CONSULTATION: Antibiotic management. HISTORY OF PRESENT ILLNESS: Sommer Elena is a 61-year-old female with numerous problems who w as admitted with abdominal pain and is being seen for antibiotic management. Apparently, the patien t is a transfer from another hospital where she underwent a repair of rectovaginal fistula. Dr. Rodriguez is took her to surgery. She presented to an emergency room. Once stabilized, was available for tra nsfer to [facility]. Her past problems include chronic low back pain and open heart surger y for open foramen ovale. She is a former smoker. On admission, she was taken to surgery. She has had a long stormy course. She had lower GI bleed, was transferred from [facility] on 03/2017. Previous scan suggesting sigmoid diverticulitis or colon diverticulitis with associated pro bable abscess, so she had a sigmoid colon diverticulitis with associated complex abscesses described . She was seen by Dr. Jiménez on the . She was taken to surgery along with Dr. Ballesteros. She had exploratory laparotomy, I and D of pelvic abscess, and diverting colostomy. She was seen by a numbe r of different consultants including Dr. Carson in GI and he noted that she had a central line katlyn ter for urinary retention, sigmoid diverticulitis with abscess controlled, colovesicular fistula. T he patient was started on Zosyn on 10/10/2016 status post incision and drainage, abscess transverse loop colostomy. On the , her white count was 9.2. Currently, the patient is having some vagina l bleeding. Colostomy is functioning. Hematocrit has been stable. Colostomy bag has greenish brow nichole liquid stool in it. She is status post laparotomy with placement of a diverting loop colostomy , status of the colitis and diverticular abscess, rectovaginal fistula. The patient has had several episodes of bleeding in the past year. With regards to the microbiology, the cultures are only of the urine, which show no growth. Abdominal x-ray shows mild postoperative ileus in bilateral abdome n, surgical changes. No evidence of obstruction. White count on the was 6.1. BUN and creatin ine are 3/0.43. PAST MEDICAL HISTORY: Operations as outlined. FAMILY HISTORY: Noncontributory. SOCIAL HISTORY: She does not smoke, drink, or abuse drugs. ALLERGIES: NONE TO PENICILLIN, SULFA, OR FOODS. MEDICATIONS: Per chart. REVIEW OF SYSTEMS: Positive for hyperlipidemia, major depression, diabetes mellitus. PHYSICAL EXAMINATION: GENERAL: The patient is an elderly ill-appearing female who is awake, responsive, in no acute distr ess. VITAL SIGNS: Stable. She is afebrile. SKIN: Without generalized rash. HEENT: Within normal limits. NECK: Supple. LYMPH NODES: None palpable. CHEST: Decreased breath sounds at the bases. HEART: Without murmur or gallop. ABDOMEN: Soft, nontender without organosplenomegaly or masses. She has a colostomy, which is drain ing greenish stool. EXTREMITIES: Without cyanosis, clubbing, or edema. RECTAL AND GENITAL: Deferred. NEUROLOGIC: No focal neurological abnormalities. IMPRESSION AND PLAN: I think at this point we can stop her Zosyn, since it has been 2 weeks, and ob serve. I will dictate my findings to the hospitalists as well as to Dr. Ballesteros, Dr. Jiménez, Dr. Altagracia morales, and Dr. Chavez Ashby. Dictated By: COLLINS DE LOS SANTOS MD, JD/ELINA Conf#: [id number] DID#: [id number] CC: NOAH HAMILTON MD;*End*
[2016-10-24] MEDS: ACETAMINOPHEN 1000MG/100ML IV 100 ML IVPB PRN (22:02)
[2016-10-25] VITALS (10 sets, daily range): BP systolic 100–145; BP diastolic 50–65; PULSE 50–57; RESP 16–25
[2016-10-25] MEDS: HYDROmorphONE 1 MG/ML SYG IV PRN ×6 (00:29→21:23)
[2016-10-25] MEDS: ACCUCHECK AT 2AM (Patients on SS coverage) XX SCH (02:00)
[2016-10-25] MEDS: D5W-0.45 NACL + KCL 20 MEQ 1,000 ML IV SCH ×3 (05:06→21:25)
[2016-10-25] MEDS: LEVOTHYROXINE 100 MCG VIAL IV SCH (05:53)
[2016-10-25] MEDS: PANTOPRAZOLE 40 MG INJ IV SCH (05:53)
[2016-10-25] MEDS: INSULIN ASPART [NOVOLOG] 3 ML PEN SC SCH ×5 (06:00→23:32)
[2016-10-25] MEDS ORDERED: POLYETHYLENE GLYCOL 3350 119 GM POWDER PO ONE (06:00)
[2016-10-25 06:25] LABS: ADD SCAN DIFF NO
[2016-10-25 06:29] LABS: BASOPHIL # 0.1 10^3/ul (0.0-0.1); EOSINOPHILS # 0.3 10^3/ul (0.0-0.5); EOSINOPHILS % 6.2 % (0.0-7.0); HEMATOCRIT 32.4 % (37.0-47.0); HEMOGLOBIN 10.2 g/dl (12.0-16.0); LYMPHOCYTES # 1.4 10^3/ul (0.8-2.9); LYMPHOCYTES % 28.5 % (15.0-51.0); MEAN CORPUSCULAR HEMOGLOBIN 27.3 pg (29.0-33.0); MEAN CORPUSCULAR HGB CONC 31.5 g/dl (32.0-37.0); MEAN CORPUSCULAR VOLUME 86.9 fl (82.0-101.0); MEAN PLATELET VOLUME 8.4 fl (7.4-10.4); MONOCYTE # 0.5 10^3/ul (0.3-0.9); MONOCYTES % 9.8 % (0.0-11.0); NEUTROPHIL # 2.7 10^3/ul (1.6-7.5); NEUTROPHILS % 54.1 % (39.0-77.0); PLATELET COUNT 407 10^3/UL (140-415); RED BLOOD COUNT 3.73 10^6/ul (4.20-5.40); RED CELL DISTRIBUTION WIDTH 15.8 % (11.5-14.5)
[2016-10-25 06:50] LABS: POTASSIUM 3.2 mmol/L (3.5-5.1)
[2016-10-25 06:53] LABS: CREATININE 0.36 mg/dl (0.44-1.00)
[2016-10-25 06:54] LABS: CALCIUM 8.4 mg/dl (8.4-10.2); MAGNESIUM 2.1 mg/dl (1.7-2.5)
[2016-10-25] MEDS ORDERED: BISACODYL (EC) 5 MG TAB PO ONE (08:00)
[2016-10-25] MEDS: POTASSIUM CHLORIDE 250 ML IVPB SCH ×2 (13:16→16:51)
[2016-10-25] MEDS ORDERED: LIDOCAINE 2% (SDV) 5 ML INJ ONE (13:38)
[2016-10-25] MEDS ORDERED: PROPOFOL 40 ML ONE (13:38)
[2016-10-25] MEDS ORDERED: EPHEDrine SULFATE 50 MG/5 ML SYG ONE (13:38)
[2016-10-25] MEDS ORDERED: PHENYLephrine (100 MCG/ML) 5ML SYG ONE (13:38)
[2016-10-25] MEDS ORDERED: ONDANSETRON 4 MG INJ IV PRN (14:00)
[2016-10-25] MEDS ORDERED: HYDROmorphONE (0.2 MG/ML) 10ML SYG IV PRN ×3 (14:00)
[2016-10-25] MEDS ORDERED: LABETALOL HCL 20MG INJ IV PRN (14:00)
[2016-10-25] MEDS ORDERED: PROCHLORPERAZINE 10 MG INJ IV PRN (14:00)
[2016-10-25] MEDS ORDERED: METOCLOPRAMIDE 10 MG INJ IV PRN (14:00)
[2016-10-25] MEDS ORDERED: OXYCODONE/ACETAMINOPHEN (5/325) TAB PO PRN ×2 (14:00)
[2016-10-25] MEDS ORDERED: INSULIN ASPART [NOVOLOG] 3 ML PEN SC ONE (14:00)
[2016-10-25] MEDS ORDERED: EPHEDrine SULFATE 50 MG/5 ML SYG IV PRN (14:00)
[2016-10-25] MEDS ORDERED: DIPHENHYDRAMINE 50 MG INJ IV PRN (14:00)
--- NOTE | 2016-10-25 16:00 | GILP ---
DATE OF PROCEDURE: 10/25/2016 PROCEDURE: Esophagogastroduodenoscopy with biopsies. SURGEON: Barbara Carson MD BRIEF HISTORY AND INDICATIONS: The patient is being evaluated for GI bleeding. The patient is stat us post diverting colostomy for perforated diverticular disease of the sigmoid colon. PREMEDICATION: Monitored anesthesia care by anesthesiologist. INSTRUMENT USED: Olympus panendoscope. TECHNIQUE: After informed consent, with the patient/relatives understanding the procedure, its indic ations, potential risks and complications, including but not limited to: allergic reaction, bleeding , perforation or infection, and after all pertinent questions were answered to the patients satisfac tion, the patient/relatives signed witnessed informed consent. Following this, premedication was ad ministered slowly IV push under careful cardiovascular and respiratory monitoring with pulse oximetr y, automatic blood pressure and threat monitoring analyst. Once the sedative effect was achieved the patient was place in the left lateral decubitus, the panendoscope was introduced and advanced under visual contr ol. Careful examination of the upper gastrointestinal tract, both on insertion as well as withdrawal of the instrument disclosed the following findings: ESOPHAGUS: The distal esophagus shows erythema, edema and superficial erosion of the mucosa. STOMACH: Upon entrance to the stomach air was insufflated, the gastric vinson distended normally. T here is significant atrophy of the gastric mucosa. Biopsies were obtained. No bleeding site or pot ential bleeding sites are identified. PYLORUS: The pylorus appears patent and within normal limits, with no evidence of gastric outlet ob struction. DUODENUM: The duodenal mucosa was carefully examined in the duodenal bulb as well as the second por tion of the duodenum and appears unremarkable with no evidence of duodenitis, ulcer or neoplasm. The instrument was then withdrawn, the patient tolerated the procedure well and was transfer out of the endoscopy suite awake, and in good condition to continue recovery under observation IMPRESSION: 1. Erosive esophagitis. 2. Moderate-sized hiatal hernia. 3. Atopic gastropathy. Biopsies were obtained. PLAN: The patient will be continued on PPI therapy and further recommendation will depend on patien t's clinical course as well as review of biopsies. The patient will undergo colonoscopy via colosto my at this time. Dictated By: BARBARA CARSON MS/ELINA Conf#: [id number] DID#: [id number] CC: BARBARA CARSON;*EndCC*
--- NOTE | 2016-10-25 16:04 | GILP ---
DATE OF PROCEDURE: 10/25/2016 PROCEDURE: Colonoscopy via colostomy. SURGEON: Barbara Carson MD BRIEF HISTORY AND INDICATIONS: The patient is being evaluated for episode of gastrointestinal bleed ing. The patient is post diverting colostomy for perforated diverticular disease. PREMEDICATION: Monitored anesthesia care by anesthesiologist. TECHNIQUE: After informed consent with the patient understanding the procedure, its potential risk s and complications as well as alternatives, and after informed consent was obtained, the patient wa s placed in the supine position. Following this, the colostomy bag was opened and the colonoscope w as introduced into the ostomy site and advanced under visual control throughout all segments of the colon including the descending colon, transverse colon, descending colon and finally reaching the ce cum, where the ileocecal valve was clearly identified as was the appendiceal orifice. The mucosa ap pears unremarkable. The instrument was withdrawn. No additional abnormalities are noted. IMPRESSION: Normal colonic mucosa to cecum via colostomy. PLAN: The patient will be continued on present regimen. Diet will be advanced as tolerated and fur ther recommendation will depend on the patient's clinical course. Dictated By: BARBARA CARSON MS/ELINA Conf#: [id number] DID#: [id number] CC: BARBARA CARSON;*EndCC*
--- NOTE | 2016-10-25 18:48 | PN ---
Date/Time of Note Date/Time of Note DATE: 10/25/16 TIME: 18:47 Assessment/Plan VTE Prophylaxis VTE Prophylaxis Intervention: SCD's Lines/Catheters IV C[facility]ter [facility]from [facility] Peripheral IV Assessment/Plan Chief Complaint/Hosp Course 1. Acute diverticulitis with perforation causing diverticular abscess status post exploratory laparotomy and placement of diverting transverse colostomy for diversion of fecal stream. The patient also has colovesical fistula, keep jacobs catheter in IV abx zosyn,ID following 2. Possible GIB-dark blood noted in the ostomy bag -EGD and colonoscopy today 3. Hypothyroidism Continue Rx 4. Weakness and numbness of the left lower extremity-stable 5. Diabetes-currently stable Continue sliding-scale 6. Ileus Prophylaxis: SCDs d/w pt- will need SNF placement on discharge Problems: Subjective 24 Hr Interval Summary Constitutional: no complaints Exam/Review of Systems Vital Signs Vitals Vital Signs Date Time Temp Pulse Resp B/P Pulse Ox O2 Delivery O2 Flow Rate FiO2 10/25/16 15:22 55 20 107/59 96 Room Air 10/25/16 14:57 97.6 10/21/16 15:24 2.0 Intake and Output 10/24/16 10/24/16 10/25/16 15:00 23:00 07:00 Intake Total 800 ml 1625 ml 2000 ml Output Total 1500 ml 3700 ml Balance 800 ml 125 ml -1700 ml Exam Constitutional: alert Respiratory: clear to auscultation Cardiovascular: regular rate and rhythm Gastrointestinal: soft, No distended Musculoskeletal: nl extremities to inspection Results Result Diagram: 10/25/16 1225 10/25/16 0535 Results 24 hrs Laboratory Tests Test 10/24/16 19:50 10/25/16 00:29 10/25/16 05:35 10/25/16 06:04 Hematocrit 34.4 L 32.4 L Bedside Glucose 92 90 White Blood Count 5.0 Red Blood Count 3.73 L Hemoglobin 10.2 L Mean Corpuscular Volume 86.9 Mean Corpuscular Hemoglobin 27.3 L Mean Corpuscular Hemoglobin Concent 31.5 L Red Cell Distribution Width 15.8 H Platelet Count 407 Mean Platelet Volume 8.4 Neutrophils % 54.1 Lymphocytes % 28.5 Monocytes % 9.8 Eosinophils % 6.2 Basophils % 1.0 Nucleated Red Blood Cells % 0.0 Neutrophils # 2.7 Lymphocytes # 1.4 Monocytes # 0.5 Eosinophils # 0.3 Basophils # 0.1 Nucleated Red Blood Cells # 0.0 Sodium Level 140 Potassium Level 3.2 L Chloride Level 104 Carbon Dioxide Level 27 Anion Gap 12 # Blood Urea Nitrogen 3 L Creatinine 0.36 L Glucose Level 89 Calcium Level 8.4 Magnesium Level 2.1 Test 10/25/16 11:57 10/25/16 12:25 10/25/16 17:21 Bedside Glucose 90 76 Hematocrit 33.5 L Medications Medications Current Medications Miscellaneous Information 1 ea NOTE XX ; Start 10/09/16 at 23:45 Glucose (Glutose) 15 gm Q15M PRN PO DECREASED GLUCOSE; Start 10/09/16 at 23:45 Glucose (Glutose) 22.5 gm Q15M PRN PO DECREASED GLUCOSE; Start 10/09/16 at 23:45 Dextrose (D50w Syringe) 25 ml Q15M PRN IV DECREASED GLUCOSE; Start 10/09/16 at 23:45 Dextrose (D50w Syringe) 50 ml Q15M PRN IV DECREASED GLUCOSE; Start 10/09/16 at 23:45 Glucagon (Glucagen) 1 mg Q15M PRN IM DECREASED GLUCOSE; Start 10/09/16 at 23:45 Glucose (Glutose) 15 gm Q15M PRN BUCCAL DECREASED GLUCOSE; Start 10/09/16 at 23: 45 Metoclopramide HCl (Reglan) 10 mg Q6H PRN IV NAUSEA AND/OR VOMITING; Start 04/18 at 00:00 Acetaminophen/ Hydrocodone Bitart (Shiloh (10/325)) 1 tab Q4H PRN PO PAIN Last administered on 10/12/16 13:23; Admin Dose 1 TAB; Start 10/11/16 at 06:00; Status Future Hold Diphenhydramine HCl (Benadryl) 25 mg Q6H PRN IV ITCHING Last administered on 01:59; Admin Dose 25 MG; Start 10/11/16 at 06:00 Diagnostic Test (Pha) (Accu-Chek) 1 ea 02 XX ; Start 10/12/16 at 02:00 Ondansetron HCl 4 mg 4 mg Q6H PRN IV NAUSEA AND/OR VOMITING; Start 10/13/16 at 19:00 Potassium Chloride/Dextrose/ Sod Cl (D5-1/2ns + KCl 20 Meq) 1,000 ml @ 75 mls/ hr [id number] IV Last administered on 10/25/16 05:06; Admin Dose 75 MLS/HR; Start 10/13/16 at 18:58 Hydralazine HCl (Apresoline) 10 mg Q6H PRN IV SBP GREATER THAN 160 Last administered on 10/14/16 10:23; Admin Dose 10 MG; Start 10/14/16 at 10:30 Clonidine HCl (Catapres-Tts 1 Patch) 1 patch Q7D TRANSDERM Last administered on 10/21/16 13:12; Admin Dose 1 PATCH; Start 10/14/16 at 11:00 Pantoprazole (Protonix Iv) 40 mg DAILY@06 IV Last administered on 10/25/16 05: 53; Admin Dose 40 MG; Start 10/15/16 at 06:00 Phenol (Cepastat Lozenge) 1 lozenge Q4H PRN MT pain Last administered on 02:18; Admin Dose 1 LOZENGE; Start 10/16/16 at 14:00 Levothyroxine Sodium (Synthroid Iv) 75 mcg DAILY@06 IV Last administered on 05:53; Admin Dose 75 MCG; Start 10/18/16 at 06:00 Hydromorphone HCl 0.5 mg 0.5 mg Q4H PRN IV PAIN Last administered on 10/25/16 17:28; Admin Dose 0.5 MG; Start 10/22/16 at 14:00 Acetaminophen (Ofirmev 1000mg/ 100ml Iv) 100 ml @ 400 mls/hr Q6H PRN IVPB pain Last administered on 10/24/16 22:02; Admin Dose 400 MLS/HR; Start at 15:00 Insulin Aspart NOVOLOG *MILD* ALGORI... Q6 SC ; Start 10/23/16 at 18:00 Potassium Chloride (KCl 40 MEQ/250 ML NS) 250 ml @ 62.5 mls/hr Q4H IVPB Last administered on 10/25/16 16:51; Admin Dose 62.5 MLS/HR; Start 10/25/16 at 12:30 ; Stop 10/25/16 at 20:29 ARAMIS SY Oct 25, 2016 18:48
--- NOTE | 2016-10-25 20:31 | CONS ---
Date/Time of Note Date/Time of Note DATE: 10/25/16 TIME: 20:12 Assessment/Plan Assessment/Plan Chief Complaint/Hosp Course ID PROGRESS NOTE OFF ABX DAY #1 =>s/p 14 days Vanco IV/Zosyn 10/10 - 10/24 24H INTERVAL SUMMARY * Sleeping -> s/p EGD today w/Bx * TMas 992. WBC normal * No F/C/N/V/D -- she has 3 BMs on 10/22, none recorded since PHYSICAL EXAMINATION: GENERAL: VSS,NAD, no fevers, resting comfortably HEENT: Unremarkable NECK: Supple, R-IJ TLC, no erythema, DSG C/D/I CHEST: Equal chest rise bilaterally, without dyspnea on observation HEART: Pulse RRR ABDOMEN: Soft EXTREMITIES: Warm, SKIN: Warm, dry ID ASSESSMENT: 61 yo F [facility] transfer on 10/10/15 with: 1. Acute diverticular abscess and rectovaginal fistula associated w/SIRS & GIB. => POD # 10/14/15 => s/p Exploratory laparotomy, I and D of pelvic abscess and diverting colostomy. 2. SIRS w/low grade temperatures, leukocytosis has resolved = reactive post EGD 3. GIB -> Lower gastrointestinal bleeding likely secondary to diverticulosis- stable * s/p EGD 10/25/16 w/biopsy report pending 4. Diabetes-currently stable 5. Hypothyroidism INVASIVES: * R-IJ TLC, FC ABX ALLERGIES: SULFA/Trimethoprim CURRENT ABX: OFF ABX DAY #1 =>s/p 14 days Vanco IV/Zosyn 10/10 - 10/24 ID RECOMMENDATIONS: 1. Patient has completed full course of IV ABX now DC'd per Dr. Singer's recommendation on 10/24 2. Will continue to monitor her OFF ABX, apparently she still has rectovaginal fistula for which FC remains intact. Problems: Consultation Date/Type/Reason Admit Date/Time Oct 09, 2016 at 17:35 Initial Consult Date 10/11/16 Type of Consultation: ID Referring Provider: ARAMIS SY Exam/Review of Systems Vital Signs Vitals Vital Signs Date Time Temp Pulse Resp B/P Pulse Ox O2 Delivery O2 Flow Rate FiO2 10/25/16 15:22 55 20 107/59 96 Room Air 10/25/16 14:57 97.6 10/21/16 15:24 2.0 Intake and Output 10/24/16 10/24/16 10/25/16 15:00 23:00 07:00 Intake Total 800 ml 1625 ml 2000 ml Output Total 1500 ml 3700 ml Balance 800 ml 125 ml -1700 ml Results Result Diagram: 10/25/16 1225 10/25/16 0535 Results 24 hrs Laboratory Tests Test 10/25/16 00:29 10/25/16 05:35 10/25/16 06:04 10/25/16 11:57 Bedside Glucose 92 90 90 White Blood Count 5.0 Red Blood Count 3.73 L Hemoglobin 10.2 L Hematocrit 32.4 L Mean Corpuscular Volume 86.9 Mean Corpuscular Hemoglobin 27.3 L Mean Corpuscular Hemoglobin Concent 31.5 L Red Cell Distribution Width 15.8 H Platelet Count 407 Mean Platelet Volume 8.4 Neutrophils % 54.1 Lymphocytes % 28.5 Monocytes % 9.8 Eosinophils % 6.2 Basophils % 1.0 Nucleated Red Blood Cells % 0.0 Neutrophils # 2.7 Lymphocytes # 1.4 Monocytes # 0.5 Eosinophils # 0.3 Basophils # 0.1 Nucleated Red Blood Cells # 0.0 Sodium Level 140 Potassium Level 3.2 L Chloride Level 104 Carbon Dioxide Level 27 Anion Gap 12 # Blood Urea Nitrogen 3 L Creatinine 0.36 L Glucose Level 89 Calcium Level 8.4 Magnesium Level 2.1 Test 10/25/16 12:25 10/25/16 17:21 Hematocrit 33.5 L Bedside Glucose 76 Medications Medications Current Medications Miscellaneous Information 1 ea NOTE XX ; Start 10/09/16 at 23:45 Glucose (Glutose) 15 gm Q15M PRN PO DECREASED GLUCOSE; Start 10/09/16 at 23:45 Glucose (Glutose) 22.5 gm Q15M PRN PO DECREASED GLUCOSE; Start 10/09/16 at 23:45 Dextrose (D50w Syringe) 25 ml Q15M PRN IV DECREASED GLUCOSE; Start 10/09/16 at 23:45 Dextrose (D50w Syringe) 50 ml Q15M PRN IV DECREASED GLUCOSE; Start 10/09/16 at 23:45 Glucagon (Glucagen) 1 mg Q15M PRN IM DECREASED GLUCOSE; Start 10/09/16 at 23:45 Glucose (Glutose) 15 gm Q15M PRN BUCCAL DECREASED GLUCOSE; Start 10/09/16 at 23: 45 Metoclopramide HCl (Reglan) 10 mg Q6H PRN IV NAUSEA AND/OR VOMITING; Start 04/18 at 00:00 Acetaminophen/ Hydrocodone Bitart ([place] (10/325)) 1 tab Q4H PRN PO PAIN Last administered on 10/12/16 13:23; Admin Dose 1 TAB; Start 10/11/16 at 06:00; Status Future Hold Diphenhydramine HCl (Benadryl) 25 mg Q6H PRN IV ITCHING Last administered on 01:59; Admin Dose 25 MG; Start 10/11/16 at 06:00 Diagnostic Test (Pha) (Accu-Chek) 1 ea 02 XX ; Start 10/12/16 at 02:00 Ondansetron HCl 4 mg 4 mg Q6H PRN IV NAUSEA AND/OR VOMITING; Start 10/13/16 at 19:00 Potassium Chloride/Dextrose/ Sod Cl (D5-1/2ns + KCl 20 Meq) 1,000 ml @ 75 mls/ hr [id number] IV Last administered on 10/25/16 05:06; Admin Dose 75 MLS/HR; Start 10/13/16 at 18:58 Hydralazine HCl (Apresoline) 10 mg Q6H PRN IV SBP GREATER THAN 160 Last administered on 10/14/16 10:23; Admin Dose 10 MG; Start 10/14/16 at 10:30 Clonidine HCl (Catapres-Tts 1 Patch) 1 patch Q7D TRANSDERM Last administered on 10/21/16 13:12; Admin Dose 1 PATCH; Start 10/14/16 at 11:00 Pantoprazole (Protonix Iv) 40 mg DAILY@06 IV Last administered on 10/25/16 05: 53; Admin Dose 40 MG; Start 10/15/16 at 06:00 Phenol (Cepastat Lozenge) 1 lozenge Q4H PRN MT pain Last administered on 02:18; Admin Dose 1 LOZENGE; Start 10/16/16 at 14:00 Levothyroxine Sodium (Synthroid Iv) 75 mcg DAILY@06 IV Last administered on 4/ 25/17at 05:53; Admin Dose 75 MCG; Start 10/18/16 at 06:00 Hydromorphone HCl 0.5 mg 0.5 mg Q4H PRN IV PAIN Last administered on 10/25/16 17:28; Admin Dose 0.5 MG; Start 10/22/16 at 14:00 Acetaminophen (Ofirmev 1000mg/ 100ml Iv) 100 ml @ 400 mls/hr Q6H PRN IVPB pain Last administered on 10/24/16 22:02; Admin Dose 400 MLS/HR; Start at 15:00 Insulin Aspart NOVOLOG *MILD* ALGORI... Q6 SC ; Start 10/23/16 at 18:00 Potassium Chloride (KCl 40 MEQ/250 ML NS) 250 ml @ 62.5 mls/hr Q4H IVPB Last administered on 10/25/16 16:51; Admin Dose 62.5 MLS/HR; Start 10/25/16 at 12:30 ; Stop 10/25/16 at 20:29 HESHAM HAJI [employer]PER[employer] Oct 25, 2016 20:22
--- NOTE | 2016-10-25 21:53 | PN ---
DATE: 10/25/2016 SUBJECTIVE: Feels okay, not much of complaint. Today she had endoscopy and colonoscopy. Thanks Dr Royce devries for doing the procedures. Per Dr. Carson's report, patient has erosive esophagitis, o therwise unremarkable endoscopy, and colonoscopy was unremarkable. No source of bleeding in the col on was identified and no other pathology. OBJECTIVE: GENERAL: The patient is awake, alert, lying down in the bed, comfortable. VITAL SIGNS: Temperature 97.6, heart rate 55, respirations 20, blood pressure 107/69, saturation 96 % ____. LABORATORY DATA: Hemoglobin 10.2, hematocrit 32.4 today. WBC 5000. Chemistry: Sodium 140, potass ium 3.2, BUN 3, creatinine 0.36. ABDOMEN: Soft. Colostomy bag is semi-filled with gas and greenish liquid stool. Abdomen soft. Can wel sounds are present. ASSESSMENT AND PLAN: 1. Stable postoperatively, laparotomy, placement of diverting loop colostomy, transverse colon. 2. Status post colonoscopy and esophagogastroduodenoscopy status post bleeding. The source of blee ding could not be identified via colonoscopy, probably from erosive esophagitis. 3. Also the patient has hiatal hernia. PLAN: The patient is on clear liquids today. Will advance diet tomorrow as tolerated. Dictated By: TICO PUCKETT MD PS/ELINA Conf#: [id number] DID#: [id number]
[2016-10-25] MEDS: DIPHENHYDRAMINE 50 MG INJ IV PRN (23:26)
[2016-10-26] MEDS: HYDROmorphONE 1 MG/ML SYG IV PRN ×6 (01:29→21:09)
[2016-10-26] MEDS: D5W-0.45 NACL + KCL 20 MEQ 1,000 ML IV SCH ×2 (01:30→15:46)
[2016-10-26] MEDS: ACCUCHECK AT 2AM (Patients on SS coverage) XX SCH (02:00)
[2016-10-26] MEDS: LEVOTHYROXINE 100 MCG VIAL IV SCH (05:45)
[2016-10-26] MEDS: PANTOPRAZOLE 40 MG INJ IV SCH (05:45)
[2016-10-26] MEDS: INSULIN ASPART [NOVOLOG] 3 ML PEN SC SCH ×3 (05:58→17:33)
[2016-10-26 06:02] LABS: ADD SCAN DIFF NO
[2016-10-26 06:19] LABS: BASOPHILS % 0.5 % (0.0-2.0); EOSINOPHILS # 0.2 10^3/ul (0.0-0.5); EOSINOPHILS % 3.6 % (0.0-7.0); HEMATOCRIT 34.6 % (37.0-47.0); HEMOGLOBIN 10.5 g/dl (12.0-16.0); LYMPHOCYTES # 1.8 10^3/ul (0.8-2.9); LYMPHOCYTES % 29.2 % (15.0-51.0); MEAN CORPUSCULAR HEMOGLOBIN 26.7 pg (29.0-33.0); MEAN CORPUSCULAR HGB CONC 30.3 g/dl (32.0-37.0); MEAN PLATELET VOLUME 8.5 fl (7.4-10.4); MONOCYTE # 0.5 10^3/ul (0.3-0.9); MONOCYTES % 8.3 % (0.0-11.0); NEUTROPHIL # 3.5 10^3/ul (1.6-7.5); NEUTROPHILS % 58.2 % (39.0-77.0); PLATELET COUNT 392 10^3/UL (140-415); RED BLOOD COUNT 3.93 10^6/ul (4.20-5.40); RED CELL DISTRIBUTION WIDTH 16.2 % (11.5-14.5)
[2016-10-26 06:36] LABS: POTASSIUM 3.9 mmol/L (3.5-5.1)
[2016-10-26 06:38] LABS: CREATININE 0.44 mg/dl (0.44-1.00)
[2016-10-26 06:39] LABS: CALCIUM 8.9 mg/dl (8.4-10.2); MAGNESIUM 1.6 mg/dl (1.7-2.5)
[2016-10-26 08:06] VITALS: BP 113/54; RESP 16
[2016-10-26] MEDS ORDERED: MAGNESIUM SULFATE 2 GM/50 ML 50 ML IVPB ONE (11:00)
[2016-10-26] MEDS: ONDANSETRON 4 MG INJ IV PRN (12:31)
--- NOTE | 2016-10-26 13:33 | PN ---
DATE: SUBJECTIVE: Status post laparotomy placement of the distal transverse colon diverting loop colostom y due to diverticulitis and diverticular abscess and colovaginal fistula. Status post EGD and colon oscopy yesterday, but no vomiting. He is on a full liquid diet. OBJECTIVE GENERAL: The patient is awake, alert, sitting in the chair. VITAL SIGNS: Temperature 98.3, heart rate 61, respirations 16, blood pressure 113/54, saturation 96 % on room air. LABORATORIES: Today sodium and potassium normal, BUN and creatinine normal. WBC 6000, hemoglobin 1 0.5, hematocrit 34.6 ABDOMEN: Soft. Colostomy bag is full of greenish-yellowish liquid stool. The vaginal pad which wa s changed at 2 a.m. and now it is 1 p.m., 11 hours, I changed it today myself, there are a few spots of old blood on the pad ____ about 1 or 2 mL, so I cannot say this is bleeding, but probably some d ischarge from vagina. ASSESSMENT: The patient with diverting loop transverse colostomy and diverticular disease with absc esses and colovaginal fistula, was bleeding again 2 days ago, 3 days ago in the colostomy bag and th rough the vagina, was not brownish, for that matter Dr. Carson did endoscopy and colonoscopy, colono scopy through the colostomy and EGD, and there was no evidence of gross bleeding or any other pathol ogy as per report. PLAN: Advance diet to soft diet as the patient tolerates. I will talk to the primary care physicia n here. I think the patient is well nourished by now. He is going to get his total protein and pre albumin. Dictated By: TICO GUADARRAMA/NTS Conf#: [id number] DID#: [id number]
--- NOTE | 2016-10-26 15:21 | PN ---
Date/Time of Note Date/Time of Note DATE: 10/26/16 TIME: 15:12 Assessment/Plan VTE Prophylaxis VTE Prophylaxis Intervention: SCD's Lines/Catheters IV Catheter Type (from Nrs): Central Line Central line still needed: Yes Urinary Cath still in place: Yes Reason Cath still needed: urinary retention Assessment/Plan Assessment/Plan * EGD 10/25/2016 Erosive esophagitis. . Moderate-sized hiatal hernia. . Atopic gastropathy. Biopsies were obtained. Vaginal Bleeding improved * Sigmoid diverticulitis with abscess controlled Colovesical fistula, Exploratory laparotomy,incision and drainage,transverse loop colostomy * Hyperlipidemia * Major depression * Diabetes mellitus * Plan * PPI for 2 weeks * continue present management Subjective 24 Hr Interval Summary Free Text/Dictation * Course reviewed with RN * Patient seen and examined * claims to have episode of vomiting relieved by medication * EGD 10/25/2016 Erosive esophagitis. Moderate-sized hiatal hernia. . Atopic gastropathy. Biopsies were obtained. * Colonoscopy 10/25/2016 Normal colonic mucosa to cecum via colostomy Exam/Review of Systems Vital Signs Vitals Vital Signs Date Time Temp Pulse Resp B/P Pulse Ox O2 Delivery O2 Flow Rate FiO2 10/26/16 08:06 98.3 61 16 113/54 96 10/25/16 15:22 Room Air Intake and Output 10/25/16 10/25/16 10/26/16 15:00 23:00 07:00 Intake Total 1615 ml 695 ml Output Total 1800 ml 350 ml Balance -185 ml 345 ml Exam Constitutional: alert, oriented Neck: non-tender, supple Respiratory: clear to auscultation, normal air movement Cardiovascular: nl pulses, regular rate and rhythm Gastrointestinal: bowel sounds, distended, other (colostomy functioning), soft Musculoskeletal: nl extremities to inspection Neurological: nl speech Results Result Diagram: 10/26/16 0535 10/26/16 0535 Results 24 hrs Laboratory Tests Test 10/25/16 17:21 10/25/16 23:31 10/26/16 05:35 10/26/16 05:41 Bedside Glucose 76 91 84 White Blood Count 6.0 Red Blood Count 3.93 L Hemoglobin 10.5 L Hematocrit 34.6 L Mean Corpuscular Volume 88.0 Mean Corpuscular Hemoglobin 26.7 L Mean Corpuscular Hemoglobin Concent 30.3 L Red Cell Distribution Width 16.2 H Platelet Count 392 Mean Platelet Volume 8.5 Neutrophils % 58.2 Lymphocytes % 29.2 Monocytes % 8.3 Eosinophils % 3.6 Basophils % 0.5 Nucleated Red Blood Cells % 0.0 Neutrophils # 3.5 Lymphocytes # 1.8 Monocytes # 0.5 Eosinophils # 0.2 Basophils # 0.0 Nucleated Red Blood Cells # 0.0 Sodium Level 137 Potassium Level 3.9 Chloride Level 104 Carbon Dioxide Level 25 Anion Gap 12 Blood Urea Nitrogen 3 L Creatinine 0.44 Glucose Level 78 Calcium Level 8.9 Magnesium Level 1.6 L Test 10/26/16 11:53 Bedside Glucose 104 Medications Medications Current Medications Miscellaneous Information 1 ea NOTE XX ; Start 10/09/16 at 23:45 Glucose (Glutose) 15 gm Q15M PRN PO DECREASED GLUCOSE; Start 10/09/16 at 23:45 Glucose (Glutose) 22.5 gm Q15M PRN PO DECREASED GLUCOSE; Start 10/09/16 at 23:45 Dextrose (D50w Syringe) 25 ml Q15M PRN IV DECREASED GLUCOSE; Start 10/09/16 at 23:45 Dextrose (D50w Syringe) 50 ml Q15M PRN IV DECREASED GLUCOSE; Start 10/09/16 at 23:45 Glucagon (Glucagen) 1 mg Q15M PRN IM DECREASED GLUCOSE; Start 10/09/16 at 23:45 Glucose (Glutose) 15 gm Q15M PRN BUCCAL DECREASED GLUCOSE; Start 10/09/16 at 23: 45 Metoclopramide HCl (Reglan) 10 mg Q6H PRN IV NAUSEA AND/OR VOMITING; Start 04/18 at 00:00 Acetaminophen/ Hydrocodone Bitart ([place] (10/325)) 1 tab Q4H PRN PO PAIN Last administered on 10/12/16 13:23; Admin Dose 1 TAB; Start 10/11/16 at 06:00; Status Future Hold Diphenhydramine HCl (Benadryl) 25 mg Q6H PRN IV ITCHING Last administered on 23:26; Admin Dose 25 MG; Start 10/11/16 at 06:00 Diagnostic Test (Pha) (Accu-Chek) 1 ea 02 XX ; Start 10/12/16 at 02:00 Ondansetron HCl 4 mg 4 mg Q6H PRN IV NAUSEA AND/OR VOMITING Last administered on 10/26/16 12:31; Admin Dose 4 MG; Start 10/13/16 at 19:00 Potassium Chloride/Dextrose/ Sod Cl (D5-1/2ns + KCl 20 Meq) 1,000 ml @ 75 mls/ hr [id number] IV Last administered on 10/26/16 01:30; Admin Dose 75 MLS/HR; Start 10/13/16 at 18:58 Hydralazine HCl (Apresoline) 10 mg Q6H PRN IV SBP GREATER THAN 160 Last administered on 10/14/16 10:23; Admin Dose 10 MG; Start 10/14/16 at 10:30 Clonidine HCl (Catapres-Tts 1 Patch) 1 patch Q7D TRANSDERM Last administered on 10/21/16 13:12; Admin Dose 1 PATCH; Start 10/14/16 at 11:00 Pantoprazole (Protonix Iv) 40 mg DAILY@06 IV Last administered on 10/26/16 05: 45; Admin Dose 40 MG; Start 10/15/16 at 06:00 Phenol (Cepastat Lozenge) 1 lozenge Q4H PRN MT pain Last administered on 02:18; Admin Dose 1 LOZENGE; Start 10/16/16 at 14:00 Levothyroxine Sodium (Synthroid Iv) 75 mcg DAILY@06 IV Last administered on 05:45; Admin Dose 75 MCG; Start 10/18/16 at 06:00 Hydromorphone HCl 0.5 mg 0.5 mg Q4H PRN IV PAIN Last administered on 10/26/16 13:46; Admin Dose 0.5 MG; Start 10/22/16 at 14:00 Acetaminophen (Ofirmev 1000mg/ 100ml Iv) 100 ml @ 400 mls/hr Q6H PRN IVPB pain Last administered on 10/24/16 22:02; Admin Dose 400 MLS/HR; Start at 15:00 Insulin Aspart (Novolog Insulin Pen) NOVOLOG *MILD* ALGORI... Q6 SC ; Start at 18:00 BARBARA WHALEN MD Oct 26, 2016 15:21
--- NOTE | 2016-10-26 16:11 | PN ---
Date/Time of Note Date/Time of Note DATE: 10/26/16 TIME: 16:07 Assessment/Plan VTE Prophylaxis VTE Prophylaxis Intervention: SCD's Assessment/Plan Chief Complaint/Hosp Course 1. Acute diverticulitis with perforation causing diverticular abscess status post exploratory laparotomy and placement of diverting transverse colostomy for diversion of fecal stream. The patient also has colovesical fistula, keep jacobs catheter in IV abx zosyn,ID following 2. Possible GIB-dark blood noted in the ostomy bag -EGD shows Erosive esophagitis and Atopic gastropathy, [place] is nl 3. Hypothyroidism Continue Rx 4. Weakness and numbness of the left lower extremity-stable 5. Diabetes-currently stable Continue sliding-scale 6. Ileus Prophylaxis: SCDs d/w pt- will need SNF placement on discharge Problems: Subjective 24 Hr Interval Summary Gastrointestinal: pain Exam/Review of Systems Vital Signs Vitals Vital Signs Date Time Temp Pulse Resp B/P Pulse Ox O2 Delivery O2 Flow Rate FiO2 10/26/16 08:06 98.3 61 16 113/54 96 10/25/16 15:22 Room Air Intake and Output 10/25/16 10/25/16 10/26/16 15:00 23:00 07:00 Intake Total 1615 ml 695 ml Output Total 1800 ml 350 ml Balance -185 ml 345 ml Exam Constitutional: alert Respiratory: clear to auscultation Cardiovascular: regular rate and rhythm Gastrointestinal: soft, No distended Musculoskeletal: nl extremities to inspection Results Result Diagram: 10/26/16 0535 10/26/16 0535 Results 24 hrs Laboratory Tests Test 10/25/16 17:21 10/25/16 23:31 10/26/16 05:35 10/26/16 05:41 Bedside Glucose 76 91 84 White Blood Count 6.0 Red Blood Count 3.93 L Hemoglobin 10.5 L Hematocrit 34.6 L Mean Corpuscular Volume 88.0 Mean Corpuscular Hemoglobin 26.7 L Mean Corpuscular Hemoglobin Concent 30.3 L Red Cell Distribution Width 16.2 H Platelet Count 392 Mean Platelet Volume 8.5 Neutrophils % 58.2 Lymphocytes % 29.2 Monocytes % 8.3 Eosinophils % 3.6 Basophils % 0.5 Nucleated Red Blood Cells % 0.0 Neutrophils # 3.5 Lymphocytes # 1.8 Monocytes # 0.5 Eosinophils # 0.2 Basophils # 0.0 Nucleated Red Blood Cells # 0.0 Sodium Level 137 Potassium Level 3.9 Chloride Level 104 Carbon Dioxide Level 25 Anion Gap 12 Blood Urea Nitrogen 3 L Creatinine 0.44 Glucose Level 78 Calcium Level 8.9 Magnesium Level 1.6 L Test 10/26/16 11:53 Bedside Glucose 104 Medications Medications Current Medications Miscellaneous Information 1 ea NOTE XX ; Start 10/09/16 at 23:45 Glucose (Glutose) 15 gm Q15M PRN PO DECREASED GLUCOSE; Start 10/09/16 at 23:45 Glucose (Glutose) 22.5 gm Q15M PRN PO DECREASED GLUCOSE; Start 10/09/16 at 23:45 Dextrose (D50w Syringe) 25 ml Q15M PRN IV DECREASED GLUCOSE; Start 10/09/16 at 23:45 Dextrose (D50w Syringe) 50 ml Q15M PRN IV DECREASED GLUCOSE; Start 10/09/16 at 23:45 Glucagon (Glucagen) 1 mg Q15M PRN IM DECREASED GLUCOSE; Start 10/09/16 at 23:45 Glucose (Glutose) 15 gm Q15M PRN BUCCAL DECREASED GLUCOSE; Start 10/09/16 at 23: 45 Metoclopramide HCl (Reglan) 10 mg Q6H PRN IV NAUSEA AND/OR VOMITING Last administered on 10/26/16 15:40; Admin Dose 10 MG; Start 10/10/16 at 00:00 Acetaminophen/ Hydrocodone Bitart ([place] (10/325)) 1 tab Q4H PRN PO PAIN Last administered on 10/12/16 13:23; Admin Dose 1 TAB; Start 10/11/16 at 06:00; Status Future Hold Diphenhydramine HCl (Benadryl) 25 mg Q6H PRN IV ITCHING Last administered on 23:26; Admin Dose 25 MG; Start 10/11/16 at 06:00 Diagnostic Test (Pha) (Accu-Chek) 1 ea 02 XX ; Start 10/12/16 at 02:00 Ondansetron HCl 4 mg 4 mg Q6H PRN IV NAUSEA AND/OR VOMITING Last administered on 10/26/16 12:31; Admin Dose 4 MG; Start 10/13/16 at 19:00 Potassium Chloride/Dextrose/ Sod Cl (D5-1/2ns + KCl 20 Meq) 1,000 ml @ 75 mls/ hr [id number] IV Last administered on 10/26/16 15:46; Admin Dose 75 MLS/HR; Start 10/13/16 at 18:58 Hydralazine HCl (Apresoline) 10 mg Q6H PRN IV SBP GREATER THAN 160 Last administered on 10/14/16 10:23; Admin Dose 10 MG; Start 10/14/16 at 10:30 Clonidine HCl (Catapres-Tts 1 Patch) 1 patch Q7D TRANSDERM Last administered on 10/21/16 13:12; Admin Dose 1 PATCH; Start 10/14/16 at 11:00 Pantoprazole (Protonix Iv) 40 mg DAILY@06 IV Last administered on 10/26/16 05: 45; Admin Dose 40 MG; Start 10/15/16 at 06:00 Phenol (Cepastat Lozenge) 1 lozenge Q4H PRN MT pain Last administered on 02:18; Admin Dose 1 LOZENGE; Start 10/16/16 at 14:00 Levothyroxine Sodium (Synthroid Iv) 75 mcg DAILY@06 IV Last administered on 05:45; Admin Dose 75 MCG; Start 10/18/16 at 06:00 Hydromorphone HCl 0.5 mg 0.5 mg Q4H PRN IV PAIN Last administered on 10/26/16 13:46; Admin Dose 0.5 MG; Start 10/22/16 at 14:00 Acetaminophen (Ofirmev 1000mg/ 100ml Iv) 100 ml @ 400 mls/hr Q6H PRN IVPB pain Last administered on 10/24/16 22:02; Admin Dose 400 MLS/HR; Start at 15:00 Insulin Aspart (Novolog Insulin Pen) NOVOLOG *MILD* ALGORI... Q6 SC ; Start at 18:00 ARAMIS SY Oct 26, 2016 16:11
[2016-10-26] MEDS ORDERED: ONDANSETRON 4 MG INJ IV STA (16:54)
--- NOTE | 2016-10-26 18:11 | CONS ---
Date/Time of Note Date/Time of Note DATE: 10/26/16 TIME: 18:07 Assessment/Plan Assessment/Plan Chief Complaint/Hosp Course ID PROGRESS NOTE OFF ABX DAY #3 =>s/p 14 days Vanco IV/Zosyn 10/10 - 10/24 24H INTERVAL SUMMARY * Sleeping -> s/p EGD today w/Bx * TMas 992. WBC normal * No F/C/N/V/D -- she has 3 BMs on 10/22, none recorded since * EGD PATHO REPORT: Gastric biopsy: -- Mild superficial chronic gastritis with extensive intestinal metaplasia. -- A Giemsa stain with an appropriate control is negative for Helicobacter pylori organisms (please see comment). -- No malignancy or dysplasia is identified. COMMENT: Helicobacter pylori organisms can be patchy in distribution and can be negative in an area of intestinal metaplasia. Therefore, negative Giemsa stain does not totally exclude the possibility of Helicobacter pylori chronic gastritis. PHYSICAL EXAMINATION: GENERAL: VSS,NAD, no fevers, resting comfortably HEENT: Unremarkable NECK: Supple, R-IJ TLC, no erythema, DSG C/D/I CHEST: Equal chest rise bilaterally, without dyspnea on observation HEART: Pulse RRR ABDOMEN: Soft EXTREMITIES: Warm, SKIN: Warm, dry ID ASSESSMENT: 61 yo F [place]->[facility] transfer on 10/10/15 with: 1. Acute diverticular abscess and rectovaginal fistula associated w/SIRS & GIB. => POD # 10/14/15 => s/p Exploratory laparotomy, I and D of pelvic abscess and diverting colostomy. 2. SIRS w/low grade temperatures, leukocytosis has resolved = reactive post EGD 3. GIB -> Lower gastrointestinal bleeding likely secondary to diverticulosis- stable * s/p EGD 10/25/16 w/biopsy report pending 4. Diabetes-currently stable 5. Hypothyroidism INVASIVES: * R-IJ TLC, FC ABX ALLERGIES: SULFA/Trimethoprim CURRENT ABX: OFF ABX DAY #3 =>s/p 14 days Vanco IV/Zosyn 10/10 - 10/24 ID RECOMMENDATIONS: 1. Patient has completed full course of IV ABX now DC'd per Dr. Singer's recommendation on 10/24 2. Will continue to monitor her OFF ABX, apparently she still has rectovaginal fistula for which FC remains intact. 3. Check stool for H.Pylori (see patho report comments), check ESR, CRP in am . Problems: Consultation Date/Type/Reason Admit Date/Time Oct 09, 2016 at 17:35 Initial Consult Date 10/11/16 Type of Consultation: ID Referring Provider: ARAMIS SY Exam/Review of Systems Vital Signs Vitals Vital Signs Date Time Temp Pulse Resp B/P Pulse Ox O2 Delivery O2 Flow Rate FiO2 10/26/16 08:06 98.3 61 16 113/54 96 10/25/16 15:22 Room Air Intake and Output 10/25/16 10/25/16 10/26/16 15:00 23:00 07:00 Intake Total 1615 ml 695 ml Output Total 1800 ml 350 ml Balance -185 ml 345 ml Results Result Diagram: 10/26/16 0535 10/26/16 0535 Results 24 hrs Laboratory Tests Test 10/25/16 23:31 10/26/16 05:35 10/26/16 05:41 10/26/16 11:53 Bedside Glucose 91 84 104 White Blood Count 6.0 Red Blood Count 3.93 L Hemoglobin 10.5 L Hematocrit 34.6 L Mean Corpuscular Volume 88.0 Mean Corpuscular Hemoglobin 26.7 L Mean Corpuscular Hemoglobin Concent 30.3 L Red Cell Distribution Width 16.2 H Platelet Count 392 Mean Platelet Volume 8.5 Neutrophils % 58.2 Lymphocytes % 29.2 Monocytes % 8.3 Eosinophils % 3.6 Basophils % 0.5 Nucleated Red Blood Cells % 0.0 Neutrophils # 3.5 Lymphocytes # 1.8 Monocytes # 0.5 Eosinophils # 0.2 Basophils # 0.0 Nucleated Red Blood Cells # 0.0 Sodium Level 137 Potassium Level 3.9 Chloride Level 104 Carbon Dioxide Level 25 Anion Gap 12 Blood Urea Nitrogen 3 L Creatinine 0.44 Glucose Level 78 Calcium Level 8.9 Magnesium Level 1.6 L Test 10/26/16 17:08 Bedside Glucose 139 Medications Medications Current Medications Miscellaneous Information 1 ea NOTE XX ; Start 10/09/16 at 23:45 Glucose (Glutose) 15 gm Q15M PRN PO DECREASED GLUCOSE; Start 10/09/16 at 23:45 Glucose (Glutose) 22.5 gm Q15M PRN PO DECREASED GLUCOSE; Start 10/09/16 at 23:45 Dextrose (D50w Syringe) 25 ml Q15M PRN IV DECREASED GLUCOSE; Start 10/09/16 at 23:45 Dextrose (D50w Syringe) 50 ml Q15M PRN IV DECREASED GLUCOSE; Start 10/09/16 at 23:45 Glucagon (Glucagen) 1 mg Q15M PRN IM DECREASED GLUCOSE; Start 10/09/16 at 23:45 Glucose (Glutose) 15 gm Q15M PRN BUCCAL DECREASED GLUCOSE; Start 10/09/16 at 23: 45 Metoclopramide HCl (Reglan) 10 mg Q6H PRN IV NAUSEA AND/OR VOMITING Last administered on 10/26/16 15:40; Admin Dose 10 MG; Start 10/10/16 at 00:00 Acetaminophen/ Hydrocodone Bitart ([place] ()) 1 tab Q4H PRN PO PAIN Last administered on 10/12/16 13:23; Admin Dose 1 TAB; Start 10/11/16 at 06:00; Status Future Hold Diphenhydramine HCl (Benadryl) 25 mg Q6H PRN IV ITCHING Last administered on 23:26; Admin Dose 25 MG; Start 10/11/16 at 06:00 Diagnostic Test (Pha) (Accu-Chek) 1 ea 02 XX ; Start 10/12/16 at 02:00 Ondansetron HCl 4 mg 4 mg Q6H PRN IV NAUSEA AND/OR VOMITING Last administered on 10/26/16 12:31; Admin Dose 4 MG; Start 10/13/16 at 19:00 Potassium Chloride/Dextrose/ Sod Cl (D5-1/2ns + KCl 20 Meq) 1,000 ml @ 75 mls/ hr [id number] IV Last administered on 10/26/16 15:46; Admin Dose 75 MLS/HR; Start 10/13/16 at 18:58 Hydralazine HCl (Apresoline) 10 mg Q6H PRN IV SBP GREATER THAN 160 Last administered on 10/14/16 10:23; Admin Dose 10 MG; Start 10/14/16 at 10:30 Clonidine HCl (Catapres-Tts 1 Patch) 1 patch Q7D TRANSDERM Last administered on 10/21/16 13:12; Admin Dose 1 PATCH; Start 10/14/16 at 11:00 Pantoprazole (Protonix Iv) 40 mg DAILY@06 IV Last administered on 10/26/16 05: 45; Admin Dose 40 MG; Start 10/15/16 at 06:00 Phenol (Cepastat Lozenge) 1 lozenge Q4H PRN MT pain Last administered on 02:18; Admin Dose 1 LOZENGE; Start 10/16/16 at 14:00 Levothyroxine Sodium (Synthroid Iv) 75 mcg DAILY@06 IV Last administered on 05:45; Admin Dose 75 MCG; Start 10/18/16 at 06:00 Hydromorphone HCl 0.5 mg 0.5 mg Q4H PRN IV PAIN Last administered on 10/26/16 17:27; Admin Dose 0.5 MG; Start 10/22/16 at 14:00 Acetaminophen (Ofirmev 1000mg/ 100ml Iv) 100 ml @ 400 mls/hr Q6H PRN IVPB pain Last administered on 10/24/16 22:02; Admin Dose 400 MLS/HR; Start at 15:00 Insulin Aspart (Novolog Insulin Pen) NOVOLOG *MILD* ALGORI... Q6 SC ; Start at 18:00 HESHAM HAJI NP Oct 26, 2016 18:11
[2016-10-26 20:23] VITALS: BP 103/54; RESP 22
[2016-10-27] MEDS: HYDROmorphONE 1 MG/ML SYG IV PRN ×6 (00:50→20:14)
[2016-10-27] MEDS: INSULIN ASPART [NOVOLOG] 3 ML PEN SC SCH ×4 (01:00→18:15)
[2016-10-27] MEDS: ACCUCHECK AT 2AM (Patients on SS coverage) XX SCH (02:00)
[2016-10-27] MEDS: D5W-0.45 NACL + KCL 20 MEQ 1,000 ML IV SCH ×2 (05:08→18:08)
[2016-10-27] MEDS: LEVOTHYROXINE 100 MCG VIAL IV SCH (05:31)
[2016-10-27] MEDS: PANTOPRAZOLE 40 MG INJ IV SCH (05:31)
[2016-10-27 06:41] LABS: ALBUMIN 2.7 g/dl (3.3-4.9); ALBUMIN/GLOBULIN RATIO 0.71; BILIRUBIN,INDIRECT 0.1 mg/dl (0-1.1); BILIRUBIN,TOTAL 0.1 mg/dl (0.2-1.3); CALCIUM 9.4 mg/dl (8.4-10.2); CREATININE 0.92 mg/dl (0.44-1.00); POTASSIUM 5.1 mmol/L (3.5-5.1); TOTAL PROTEIN 6.5 g/dl (6.1-8.1)
[2016-10-27 07:52] VITALS: BP 109/53; RESP 16
--- NOTE | 2016-10-27 13:49 | PN ---
DATE: 10/27/2016 SUBJECTIVE: Complains of vomiting. Has not been eating anything occasional abdominal pain. OBJECTIVE GENERAL: Awake, alert, quiet, calm. VITAL SIGNS: Temperature 98.3, heart 69, respirations 16, blood pressure 109/53, saturation 98% on room air. ABDOMEN: Soft. Dressing changed and the midline incision, there is no abscess, but it does not look very clean, some skin slough is seen in the middle of it. The colostomy bag has been changed. Now it is empty but apparently there has been some stool in it. EXTREMITIES: No calf tenderness. No gross bleeding. LABORATORY DATA: ESR is 74 and very elevated. The hemoglobin is 10.5, hematocrit 34.6. WBC 6000 wit h 58% segmented. Chemistry, albumin is 2.7, total protein 6.5. ____ 3.8, elevated. Sodium, potass ium, BUN, creatinine normal. ASSESSMENT AND PLAN: 1. A 61-year-old female status post diverticulitis, diverticular abscess and colovaginal fistula. 2. Status post bleeding of unknown origin. 3. Status post transverse loop colostomy diversion of the fecal stream. The patient in past few da ys has been vomiting, especially after EGD and she cannot hold food in the stomach, so we kept her n .p.o. last night. 1. ____ on liquid diet. 2. The dressing to be changed b.i.d. ____ midline wound. 3. PT to assist patient ____ . 4. Other medical problems to be addressed by the primary care team. Dictated By: TICO GUADARRAMA/ELINA Conf#: [id number] DID#: [id number]
--- NOTE | 2016-10-27 13:52 | PN ---
Date/Time of Note Date/Time of Note DATE: 10/27/16 TIME: 13:46 Assessment/Plan VTE Prophylaxis VTE Prophylaxis Intervention: SCD's Lines/Catheters IV Catheter Type (from Nrs): Central Line Central line still needed: Yes Urinary Cath still in place: Yes Reason Cath still needed: urinary retention Assessment/Plan Assessment/Plan Hematochezia controlled EGD 10/25/2016 Erosive esophagitis. . Moderate-sized hiatal hernia. . Atopic gastropathy. Biopsies were obtained. Colonoscopy 10/25/2016 Normal colonic mucosa to cecum via colostomy. Vaginal Bleeding improved defer to primary Sigmoid diverticulitis with abscess controlled Colovesical fistula, Exploratory laparotomy,incision and drainage,transverse loop colostomy Hyperlipidemia Major depression Diabetes mellitus * Plan * PPI for 2 weeks * continue present management Subjective 24 Hr Interval Summary Free Text/Dictation * Course reviewed with RN * Patient seen and examined * Denies abdominal pain pain nor vomiting * still complains on and off vaginal bleeding Exam/Review of Systems Vital Signs Vitals Vital Signs Date Time Temp Pulse Resp B/P Pulse Ox O2 Delivery O2 Flow Rate FiO2 10/27/16 07:52 98.3 69 16 109/53 92 10/25/16 15:22 Room Air Intake and Output 10/26/16 10/26/16 10/27/16 14:59 22:59 06:59 Intake Total 930 ml 1140 ml 900 ml Output Total 1500 ml 2650 ml 1500 ml Balance -570 ml -1510 ml -600 ml Exam Constitutional: alert, oriented Eyes: PERRL, nl sclera Neck: non-tender, supple Respiratory: clear to auscultation, normal air movement Cardiovascular: nl pulses, regular rate and rhythm Gastrointestinal: bowel sounds, non-tender, other (colostomy functioning), soft , No rebound or guarding Musculoskeletal: nl extremities to inspection Results Result Diagram: 10/26/16 0535 10/27/16 0550 Results 24 hrs Laboratory Tests Test 10/26/16 17:08 10/27/16 00:44 10/27/16 05:00 10/27/16 05:38 Bedside Glucose 139 157 154 C-Reactive Protein 15.7 H Test 10/27/16 05:50 10/27/16 11:46 Erythrocyte Sedimentation Rate 74 H Sodium Level 133 L Potassium Level 5.1 Chloride Level 107 Carbon Dioxide Level 21 Anion Gap 10 Blood Urea Nitrogen 10 Creatinine 0.92 Glucose Level 172 Calcium Level 9.4 Magnesium Level 2.0 Total Bilirubin 0.1 L Direct Bilirubin 0.00 Indirect Bilirubin 0.1 Aspartate Amino Transf (AST/SGOT) 21 Alanine Aminotransferase (ALT/SGPT) 17 Alkaline Phosphatase 183 H Total Protein 6.5 Albumin 2.7 L Globulin 3.80 H Albumin/Globulin Ratio 0.71 Bedside Glucose 149 Medications Medications Current Medications Miscellaneous Information 1 ea NOTE XX ; Start 10/09/16 at 23:45 Glucose (Glutose) 15 gm Q15M PRN PO DECREASED GLUCOSE; Start 10/09/16 at 23:45 Glucose (Glutose) 22.5 gm Q15M PRN PO DECREASED GLUCOSE; Start 10/09/16 at 23:45 Dextrose (D50w Syringe) 25 ml Q15M PRN IV DECREASED GLUCOSE; Start 10/09/16 at 23:45 Dextrose (D50w Syringe) 50 ml Q15M PRN IV DECREASED GLUCOSE; Start 10/09/16 at 23:45 Glucagon (Glucagen) 1 mg Q15M PRN IM DECREASED GLUCOSE; Start 10/09/16 at 23:45 Glucose (Glutose) 15 gm Q15M PRN BUCCAL DECREASED GLUCOSE; Start 10/09/16 at 23: 45 Metoclopramide HCl (Reglan) 10 mg Q6H PRN IV NAUSEA AND/OR VOMITING Last administered on 10/26/16 15:40; Admin Dose 10 MG; Start 10/10/16 at 00:00 Acetaminophen/ Hydrocodone Bitart ([place] (10/325)) 1 tab Q4H PRN PO PAIN Last administered on 10/12/16 13:23; Admin Dose 1 TAB; Start 10/11/16 at 06:00; Status Future Hold Diphenhydramine HCl (Benadryl) 25 mg Q6H PRN IV ITCHING Last administered on 23:26; Admin Dose 25 MG; Start 10/11/16 at 06:00 Diagnostic Test (Pha) (Accu-Chek) 1 ea 02 XX ; Start 10/12/16 at 02:00 Ondansetron HCl 4 mg 4 mg Q6H PRN IV NAUSEA AND/OR VOMITING Last administered on 10/26/16 12:31; Admin Dose 4 MG; Start 10/13/16 at 19:00 Potassium Chloride/Dextrose/ Sod Cl (D5-1/2ns + KCl 20 Meq) 1,000 ml @ 75 mls/ hr [id number] IV Last administered on 10/27/16 05:08; Admin Dose 75 MLS/HR; Start 10/13/16 at 18:58 Hydralazine HCl (Apresoline) 10 mg Q6H PRN IV SBP GREATER THAN 160 Last administered on 10/14/16 10:23; Admin Dose 10 MG; Start 10/14/16 at 10:30 Clonidine HCl (Catapres-Tts 1 Patch) 1 patch Q7D TRANSDERM Last administered on 10/21/16 13:12; Admin Dose 1 PATCH; Start 10/14/16 at 11:00 Pantoprazole (Protonix Iv) 40 mg DAILY@06 IV Last administered on 10/27/16 05: 31; Admin Dose 40 MG; Start 10/15/16 at 06:00 Phenol (Cepastat Lozenge) 1 lozenge Q4H PRN MT pain Last administered on 02:18; Admin Dose 1 LOZENGE; Start 10/16/16 at 14:00 Levothyroxine Sodium (Synthroid Iv) 75 mcg DAILY@06 IV Last administered on 05:31; Admin Dose 75 MCG; Start 10/18/16 at 06:00 Hydromorphone HCl 0.5 mg 0.5 mg Q4H PRN IV PAIN Last administered on 10/27/16 12:45; Admin Dose 0.5 MG; Start 10/22/16 at 14:00 Acetaminophen (Ofirmev 1000mg/ 100ml Iv) 100 ml @ 400 mls/hr Q6H PRN IVPB pain Last administered on 10/24/16 22:02; Admin Dose 400 MLS/HR; Start at 15:00 Insulin Aspart (Novolog Insulin Pen) NOVOLOG *MILD* ALGORI... Q6 SC Last administered on 10/27/16 12:51; Admin Dose 1 UNIT; Start 10/23/16 at 18:00 BARBARA WHALEN MD Oct 27, 2016 13:52
--- NOTE | 2016-10-27 16:09 | PN ---
Date/Time of Note Date/Time of Note DATE: 10/27/16 TIME: 16:08 Assessment/Plan VTE Prophylaxis VTE Prophylaxis Intervention: SCD's Assessment/Plan Chief Complaint/Hosp Course 1. Acute diverticulitis with perforation causing diverticular abscess status post exploratory laparotomy and placement of diverting transverse colostomy for diversion of fecal stream. The patient also has colovesical fistula, keep jacobs catheter in IV abx zosyn,ID following 2. Possible GIB-dark blood noted in the ostomy bag -EGD shows Erosive esophagitis and Atopic gastropathy, [place] is nl 3. Hypothyroidism Continue Rx 4. Weakness and numbness of the left lower extremity-stable 5. Diabetes-currently stable Continue sliding-scale 6. Ileus Prophylaxis: SCDs d/w pt- will need SNF placement on discharge Problems: Subjective 24 Hr Interval Summary Gastrointestinal: pain Exam/Review of Systems Vital Signs Vitals Vital Signs Date Time Temp Pulse Resp B/P Pulse Ox O2 Delivery O2 Flow Rate FiO2 10/27/16 07:52 98.3 69 16 109/53 92 10/25/16 15:22 Room Air Intake and Output 10/26/16 10/26/16 10/27/16 15:00 23:00 07:00 Intake Total 930 ml 1140 ml 900 ml Output Total 1500 ml 2650 ml 1500 ml Balance -570 ml -1510 ml -600 ml Exam Constitutional: alert Respiratory: clear to auscultation Cardiovascular: regular rate and rhythm Gastrointestinal: soft, No distended Musculoskeletal: nl extremities to inspection Results Result Diagram: 10/26/16 0535 10/27/16 0550 Results 24 hrs Laboratory Tests Test 10/26/16 17:08 10/27/16 00:44 10/27/16 05:00 10/27/16 05:38 Bedside Glucose 139 157 154 C-Reactive Protein 15.7 H Test 10/27/16 05:50 10/27/16 11:46 Erythrocyte Sedimentation Rate 74 H Sodium Level 133 L Potassium Level 5.1 Chloride Level 107 Carbon Dioxide Level 21 Anion Gap 10 Blood Urea Nitrogen 10 Creatinine 0.92 Glucose Level 172 Calcium Level 9.4 Magnesium Level 2.0 Total Bilirubin 0.1 L Direct Bilirubin 0.00 Indirect Bilirubin 0.1 Aspartate Amino Transf (AST/SGOT) 21 Alanine Aminotransferase (ALT/SGPT) 17 Alkaline Phosphatase 183 H Total Protein 6.5 Albumin 2.7 L Globulin 3.80 H Albumin/Globulin Ratio 0.71 Bedside Glucose 149 Medications Medications Current Medications Miscellaneous Information 1 ea NOTE XX ; Start 10/09/16 at 23:45 Glucose (Glutose) 15 gm Q15M PRN PO DECREASED GLUCOSE; Start 10/09/16 at 23:45 Glucose (Glutose) 22.5 gm Q15M PRN PO DECREASED GLUCOSE; Start 10/09/16 at 23:45 Dextrose (D50w Syringe) 25 ml Q15M PRN IV DECREASED GLUCOSE; Start 10/09/16 at 23:45 Dextrose (D50w Syringe) 50 ml Q15M PRN IV DECREASED GLUCOSE; Start 10/09/16 at 23:45 Glucagon (Glucagen) 1 mg Q15M PRN IM DECREASED GLUCOSE; Start 10/09/16 at 23:45 Glucose (Glutose) 15 gm Q15M PRN BUCCAL DECREASED GLUCOSE; Start 10/09/16 at 23: 45 Metoclopramide HCl (Reglan) 10 mg Q6H PRN IV NAUSEA AND/OR VOMITING Last administered on 10/26/16 15:40; Admin Dose 10 MG; Start 10/10/16 at 00:00 Acetaminophen/ Hydrocodone Bitart ([place] (10/325)) 1 tab Q4H PRN PO PAIN Last administered on 10/12/16 13:23; Admin Dose 1 TAB; Start 10/11/16 at 06:00; Status Future Hold Diphenhydramine HCl (Benadryl) 25 mg Q6H PRN IV ITCHING Last administered on 23:26; Admin Dose 25 MG; Start 10/11/16 at 06:00 Diagnostic Test (Pha) (Accu-Chek) 1 ea 02 XX ; Start 10/12/16 at 02:00 Ondansetron HCl 4 mg 4 mg Q6H PRN IV NAUSEA AND/OR VOMITING Last administered on 10/26/16 12:31; Admin Dose 4 MG; Start 10/13/16 at 19:00 Potassium Chloride/Dextrose/ Sod Cl (D5-1/2ns + KCl 20 Meq) 1,000 ml @ 75 mls/ hr [id number] IV Last administered on 10/27/16 05:08; Admin Dose 75 MLS/HR; Start 10/13/16 at 18:58 Hydralazine HCl (Apresoline) 10 mg Q6H PRN IV SBP GREATER THAN 160 Last administered on 10/14/16 10:23; Admin Dose 10 MG; Start 10/14/16 at 10:30 Clonidine HCl (Catapres-Tts 1 Patch) 1 patch Q7D TRANSDERM Last administered on 10/21/16 13:12; Admin Dose 1 PATCH; Start 10/14/16 at 11:00 Pantoprazole (Protonix Iv) 40 mg DAILY@06 IV Last administered on 10/27/16 05: 31; Admin Dose 40 MG; Start 10/15/16 at 06:00 Phenol (Cepastat Lozenge) 1 lozenge Q4H PRN MT pain Last administered on 02:18; Admin Dose 1 LOZENGE; Start 10/16/16 at 14:00 Levothyroxine Sodium (Synthroid Iv) 75 mcg DAILY@06 IV Last administered on 05:31; Admin Dose 75 MCG; Start 10/18/16 at 06:00 Hydromorphone HCl 0.5 mg 0.5 mg Q4H PRN IV PAIN Last administered on 10/27/16 16:07; Admin Dose 0.5 MG; Start 10/22/16 at 14:00 Acetaminophen (Ofirmev 1000mg/ 100ml Iv) 100 ml @ 400 mls/hr Q6H PRN IVPB pain Last administered on 10/24/16 22:02; Admin Dose 400 MLS/HR; Start at 15:00 Insulin Aspart (Novolog Insulin Pen) NOVOLOG *MILD* ALGORI... Q6 SC Last administered on 10/27/16 12:51; Admin Dose 1 UNIT; Start 10/23/16 at 18:00 ARAMIS SY Oct 27, 2016 16:09
--- NOTE | 2016-10-27 17:03 | CONS ---
Date/Time of Note Date/Time of Note DATE: 10/27/16 TIME: 16:51 Assessment/Plan Assessment/Plan Chief Complaint/Hosp Course ID PROGRESS NOTE OFF ABX DAY #4 * =>s/p 14 days Vanco IV/Zosyn 10/10 - 10/24 24H INTERVAL SUMMARY * Prefers to sleep post op fernando in place, colostomy - she told the ostomy nurse she is depressed not on Cymbalta * s/p perf diverticula repair w/colotomy, still has rectovaginal fistula * Afebrile, WBC 6.0 ESR 74, CRP 15.3 * No F/C/N/V/D -- she has 3 BMs on 10/22, none recorded since * s/p EGD => (+)Erosive esophagitis and Atopic gastropathy * EGD PATHO REPORT: (-)Gastric biopsy:-- No malignancy or dysplasia is identified. COMMENT: Helicobacter pylori organisms can be patchy in distribution and can be negative in an area of intestinal metaplasia. Therefore, negative Giemsa stain does not totally exclude the possibility of Helicobacter pylori chronic gastritis. PHYSICAL EXAMINATION: GENERAL: VSS,NAD, no fevers, resting comfortably HEENT: Unremarkable NECK: Supple, R-IJ TLC, no erythema, DSG C/D/I CHEST: Equal chest rise bilaterally, without dyspnea on observation HEART: Pulse RRR ABDOMEN: Soft (+)[place], (+)Ostomy EXTREMITIES: Warm, SKIN: Warm, dry ID ASSESSMENT: 61 yo F [place]->[facility] transfer on 10/10/15 with: 1. Acute diverticular abscess and rectovaginal fistula associated w/SIRS & GIB. => POD # 10/14/15 => s/p Exploratory laparotomy, I and D of pelvic abscess and diverting colostomy. 2. SIRS ESR 74, CRP 15.3 = Resolution of low grade temps, WBC normal = reactive post EGD, post-op 3. GIB -> Lower gastrointestinal bleeding likely secondary to diverticulosis- stable 4. s/p EGD 10/25/16 (+)Erosive esophagitis and Atopic gastropathy * (-)Gastric biopsy:-- No malignancy or dysplasia is identified. Cannot r/o H.Pylori 4. Diabetes-currently stable 5. Hypothyroidism 6. Depression, so stated by patient who reported to ostomy nurse she is off her Cymbalta INVASIVES: * R-IJ TLC, FC ABX ALLERGIES: SULFA/Trimethoprim CURRENT ABX: OFF ABX DAY #4 =>s/p 14 days Vanco IV/Zosyn 10/10 - 10/24 ID RECOMMENDATIONS: 1. Patient has completed full course of IV ABX now DC'd per Dr. Singer's recommendation on 10/24 2. Will continue to monitor her OFF ABX, apparently she still has rectovaginal fistula for which FC remains intact. 3. Check stool for H.Pylori (see patho report comments) = pending 4. Wound care - she expressed concern that ostomy at risk of contaminating her surgical wound * deferred ostomy nurse care until tomorrow . . Problems: Consultation Date/Type/Reason Admit Date/Time Oct 09, 2016 at 17:35 Initial Consult Date 10/11/16 Type of Consultation: ID Referring Provider: ARAMIS SY Exam/Review of Systems Vital Signs Vitals Vital Signs Date Time Temp Pulse Resp B/P Pulse Ox O2 Delivery O2 Flow Rate FiO2 10/27/16 07:52 98.3 69 16 109/53 92 10/25/16 15:22 Room Air Intake and Output 10/26/16 10/26/16 10/27/16 15:00 23:00 07:00 Intake Total 930 ml 1140 ml 900 ml Output Total 1500 ml 2650 ml 1500 ml Balance -570 ml -1510 ml -600 ml Results Result Diagram: 10/26/16 0535 10/27/16 0550 Results 24 hrs Laboratory Tests Test 10/26/16 17:08 10/27/16 00:44 10/27/16 05:00 10/27/16 05:38 Bedside Glucose 139 157 154 C-Reactive Protein 15.7 H Test 10/27/16 05:50 10/27/16 11:46 Erythrocyte Sedimentation Rate 74 H Sodium Level 133 L Potassium Level 5.1 Chloride Level 107 Carbon Dioxide Level 21 Anion Gap 10 Blood Urea Nitrogen 10 Creatinine 0.92 Glucose Level 172 Calcium Level 9.4 Magnesium Level 2.0 Total Bilirubin 0.1 L Direct Bilirubin 0.00 Indirect Bilirubin 0.1 Aspartate Amino Transf (AST/SGOT) 21 Alanine Aminotransferase (ALT/SGPT) 17 Alkaline Phosphatase 183 H Total Protein 6.5 Albumin 2.7 L Globulin 3.80 H Albumin/Globulin Ratio 0.71 Bedside Glucose 149 Medications Medications Current Medications Miscellaneous Information 1 ea NOTE XX ; Start 10/09/16 at 23:45 Glucose (Glutose) 15 gm Q15M PRN PO DECREASED GLUCOSE; Start 10/09/16 at 23:45 Glucose (Glutose) 22.5 gm Q15M PRN PO DECREASED GLUCOSE; Start 10/09/16 at 23:45 Dextrose (D50w Syringe) 25 ml Q15M PRN IV DECREASED GLUCOSE; Start 10/09/16 at 23:45 Dextrose (D50w Syringe) 50 ml Q15M PRN IV DECREASED GLUCOSE; Start 10/09/16 at 23:45 Glucagon (Glucagen) 1 mg Q15M PRN IM DECREASED GLUCOSE; Start 10/09/16 at 23:45 Glucose (Glutose) 15 gm Q15M PRN BUCCAL DECREASED GLUCOSE; Start 10/09/16 at 23: 45 Metoclopramide HCl (Reglan) 10 mg Q6H PRN IV NAUSEA AND/OR VOMITING Last administered on 10/26/16 15:40; Admin Dose 10 MG; Start 10/10/16 at 00:00 Acetaminophen/ Hydrocodone Bitart ([place] (10/325)) 1 tab Q4H PRN PO PAIN Last administered on 10/12/16 13:23; Admin Dose 1 TAB; Start 10/11/16 at 06:00; Status Future Hold Diphenhydramine HCl (Benadryl) 25 mg Q6H PRN IV ITCHING Last administered on 23:26; Admin Dose 25 MG; Start 10/11/16 at 06:00 Diagnostic Test (Pha) (Accu-Chek) 1 ea 02 XX ; Start 10/12/16 at 02:00 Ondansetron HCl 4 mg 4 mg Q6H PRN IV NAUSEA AND/OR VOMITING Last administered on 10/26/16 12:31; Admin Dose 4 MG; Start 10/13/16 at 19:00 Potassium Chloride/Dextrose/ Sod Cl (D5-1/2ns + KCl 20 Meq) 1,000 ml @ 75 mls/ hr [id number] IV Last administered on 10/27/16 05:08; Admin Dose 75 MLS/HR; Start 10/13/16 at 18:58 Hydralazine HCl (Apresoline) 10 mg Q6H PRN IV SBP GREATER THAN 160 Last administered on 10/14/16 10:23; Admin Dose 10 MG; Start 10/14/16 at 10:30 Clonidine HCl (Catapres-Tts 1 Patch) 1 patch Q7D TRANSDERM Last administered on 10/21/16 13:12; Admin Dose 1 PATCH; Start 10/14/16 at 11:00 Pantoprazole (Protonix Iv) 40 mg DAILY@06 IV Last administered on 10/27/16 05: 31; Admin Dose 40 MG; Start 10/15/16 at 06:00 Phenol (Cepastat Lozenge) 1 lozenge Q4H PRN MT pain Last administered on 02:18; Admin Dose 1 LOZENGE; Start 10/16/16 at 14:00 Levothyroxine Sodium (Synthroid Iv) 75 mcg DAILY@06 IV Last administered on 05:31; Admin Dose 75 MCG; Start 10/18/16 at 06:00 Hydromorphone HCl 0.5 mg 0.5 mg Q4H PRN IV PAIN Last administered on 10/27/16 16:07; Admin Dose 0.5 MG; Start 10/22/16 at 14:00 Acetaminophen (Ofirmev 1000mg/ 100ml Iv) 100 ml @ 400 mls/hr Q6H PRN IVPB pain Last administered on 10/24/16 22:02; Admin Dose 400 MLS/HR; Start at 15:00 Insulin Aspart (Novolog Insulin Pen) NOVOLOG *MILD* ALGORI... Q6 SC Last administered on 10/27/16 12:51; Admin Dose 1 UNIT; Start 10/23/16 at 18:00 HESHAM HAJI NP Oct 27, 2016 17:02
[2016-10-27 19:32] VITALS: BP 110/55; RESP 16
[2016-10-28] MEDS: HYDROmorphONE 1 MG/ML SYG IV PRN ×6 (00:10→21:35)
[2016-10-28] MEDS: DIPHENHYDRAMINE 50 MG INJ IV PRN ×2 (00:22→05:47)
[2016-10-28] MEDS: ACCUCHECK AT 2AM (Patients on SS coverage) XX SCH (02:00)
[2016-10-28] MEDS: LEVOTHYROXINE 100 MCG VIAL IV SCH (05:47)
[2016-10-28] MEDS: PANTOPRAZOLE 40 MG INJ IV SCH (05:47)
[2016-10-28 05:50] LABS: ADD SCAN DIFF NO
[2016-10-28] MEDS: INSULIN ASPART [NOVOLOG] 3 ML PEN SC SCH ×4 (06:00→17:57)
[2016-10-28 06:01] LABS: BASOPHIL # 0.1 10^3/ul (0.0-0.1); BASOPHILS % 0.5 % (0.0-2.0); EOSINOPHILS # 0.4 10^3/ul (0.0-0.5); EOSINOPHILS % 3.4 % (0.0-7.0); HEMATOCRIT 34.9 % (37.0-47.0); HEMOGLOBIN 10.7 g/dl (12.0-16.0); LYMPHOCYTES % 17.8 % (15.0-51.0); MEAN CORPUSCULAR HEMOGLOBIN 26.8 pg (29.0-33.0); MEAN CORPUSCULAR HGB CONC 30.7 g/dl (32.0-37.0); MEAN CORPUSCULAR VOLUME 87.3 fl (82.0-101.0); MEAN PLATELET VOLUME 8.3 fl (7.4-10.4); MONOCYTES % 9.3 % (0.0-11.0); NEUTROPHIL # 7.5 10^3/ul (1.6-7.5); NEUTROPHILS % 68.4 % (39.0-77.0); PLATELET COUNT 420 10^3/UL (140-415); RED CELL DISTRIBUTION WIDTH 16.4 % (11.5-14.5)
[2016-10-28 06:05] LABS: POTASSIUM 4.5 mmol/L (3.5-5.1)
[2016-10-28 06:07] LABS: CREATININE 0.67 mg/dl (0.44-1.00)
[2016-10-28 06:08] LABS: CALCIUM 9.3 mg/dl (8.4-10.2)
[2016-10-28 07:23] VITALS: BP 105/53; RESP 16
--- NOTE | 2016-10-28 08:34 | CONS ---
Date/Time of Note Date/Time of Note DATE: 10/28/16 TIME: 08:32 Assessment/Plan Assessment/Plan Additional Assessment/Plan EGD 10/25/2016 * Erosive esophagitis. * Moderate-sized hiatal hernia. * Atopic gastropathy. Gastric Biopsies: Mild superficial chronic gastritis with extensive intestinal metaplasia. negative for Helicobacter pylori organisms No malignancy or dysplasia is identified. Vaginal Bleeding improved Sigmoid diverticulitis with abscess controlled Colovesical fistula, * Exploratory laparotomy,incision and drainage,transverse loop colostomy Hyperlipidemia Major depression Diabetes mellitus Plan * PPI for 2 weeks * continue present management * Further recommendations depend on clinical course * Patient seen in collaboration with Dr. Carson Consultation Date/Type/Reason Admit Date/Time Oct 09, 2016 at 17:35 Initial Consult Date 10/11/16 Type of Consultation: Gastroenterology Referring Provider: ARAMIS SY 24 HR Interval Summary Free Text/Dictation Hemoglobin stable Tolerating diet Exam/Review of Systems Vital Signs Vitals Vital Signs Date Time Temp Pulse Resp B/P Pulse Ox O2 Delivery O2 Flow Rate FiO2 10/28/16 07:23 98.0 64 16 105/53 93 10/25/16 15:22 Room Air Intake and Output 10/27/16 10/27/16 10/28/16 15:00 23:00 07:00 Intake Total 660 ml 1425 ml Output Total 900 ml 1190 ml Balance -240 ml 235 ml Exam Constitutional: alert, oriented Neck: non-tender, supple Respiratory: clear to auscultation, normal air movement Cardiovascular: nl pulses, regular rate and rhythm Gastrointestinal: bowel sounds, distended, other (colostomy functioning), soft Musculoskeletal: nl extremities to inspection Neurological: nl speech Results Result Diagram: 10/28/16 0532 10/28/16 0530 Results 24 hrs Laboratory Tests Test 10/27/16 11:46 10/27/16 17:24 10/28/16 00:17 10/28/16 05:30 Bedside Glucose 149 147 136 Sodium Level 135 Potassium Level 4.5 Chloride Level 106 Carbon Dioxide Level 20 L Anion Gap 14 Blood Urea Nitrogen 15 Creatinine 0.67 Glucose Level 129 # Calcium Level 9.3 Test 10/28/16 05:32 10/28/16 05:56 White Blood Count 11.0 #H Red Blood Count 4.00 L Hemoglobin 10.7 L Hematocrit 34.9 L Mean Corpuscular Volume 87.3 Mean Corpuscular Hemoglobin 26.8 L Mean Corpuscular Hemoglobin Concent 30.7 L Red Cell Distribution Width 16.4 H Platelet Count 420 H Mean Platelet Volume 8.3 Neutrophils % 68.4 Lymphocytes % 17.8 Monocytes % 9.3 Eosinophils % 3.4 Basophils % 0.5 Nucleated Red Blood Cells % 0.0 Neutrophils # 7.5 Lymphocytes # 2.0 Monocytes # 1.0 H Eosinophils # 0.4 Basophils # 0.1 Nucleated Red Blood Cells # 0.0 Bedside Glucose 127 Medications Medications Current Medications Miscellaneous Information 1 ea NOTE XX ; Start 10/09/16 at 23:45 Glucose (Glutose) 15 gm Q15M PRN PO DECREASED GLUCOSE; Start 10/09/16 at 23:45 Glucose (Glutose) 22.5 gm Q15M PRN PO DECREASED GLUCOSE; Start 10/09/16 at 23:45 Dextrose (D50w Syringe) 25 ml Q15M PRN IV DECREASED GLUCOSE; Start 10/09/16 at 23:45 Dextrose (D50w Syringe) 50 ml Q15M PRN IV DECREASED GLUCOSE; Start 10/09/16 at 23:45 Glucagon (Glucagen) 1 mg Q15M PRN IM DECREASED GLUCOSE; Start 10/09/16 at 23:45 Glucose (Glutose) 15 gm Q15M PRN BUCCAL DECREASED GLUCOSE; Start 10/09/16 at 23: 45 Metoclopramide HCl (Reglan) 10 mg Q6H PRN IV NAUSEA AND/OR VOMITING Last administered on 10/26/16 15:40; Admin Dose 10 MG; Start 10/10/16 at 00:00 Acetaminophen/ Hydrocodone Bitart ([place] (10/325)) 1 tab Q4H PRN PO PAIN Last administered on 10/12/16 13:23; Admin Dose 1 TAB; Start 10/11/16 at 06:00; Status Future Hold Diphenhydramine HCl (Benadryl) 25 mg Q6H PRN IV ITCHING Last administered on 05:47; Admin Dose 25 MG; Start 10/11/16 at 06:00 Diagnostic Test (Pha) (Accu-Chek) 1 ea 02 XX ; Start 10/12/16 at 02:00 Ondansetron HCl 4 mg 4 mg Q6H PRN IV NAUSEA AND/OR VOMITING Last administered on 10/26/16 12:31; Admin Dose 4 MG; Start 10/13/16 at 19:00 Potassium Chloride/Dextrose/ Sod Cl (D5-1/2ns + KCl 20 Meq) 1,000 ml @ 75 mls/ hr [id number] IV Last administered on 10/27/16 18:08; Admin Dose 75 MLS/HR; Start 10/13/16 at 18:58 Hydralazine HCl (Apresoline) 10 mg Q6H PRN IV SBP GREATER THAN 160 Last administered on 10/14/16 10:23; Admin Dose 10 MG; Start 10/14/16 at 10:30 Clonidine HCl (Catapres-Tts 1 Patch) 1 patch Q7D TRANSDERM Last administered on 10/21/16 13:12; Admin Dose 1 PATCH; Start 10/14/16 at 11:00 Pantoprazole (Protonix Iv) 40 mg DAILY@06 IV Last administered on 10/28/16 05: 47; Admin Dose 40 MG; Start 10/15/16 at 06:00 Phenol (Cepastat Lozenge) 1 lozenge Q4H PRN MT pain Last administered on 02:18; Admin Dose 1 LOZENGE; Start 10/16/16 at 14:00 Levothyroxine Sodium (Synthroid Iv) 75 mcg DAILY@06 IV Last administered on 05:47; Admin Dose 75 MCG; Start 10/18/16 at 06:00 Hydromorphone HCl 0.5 mg 0.5 mg Q4H PRN IV PAIN Last administered on 10/28/16 04:02; Admin Dose 0.5 MG; Start 10/22/16 at 14:00 Acetaminophen (Ofirmev 1000mg/ 100ml Iv) 100 ml @ 400 mls/hr Q6H PRN IVPB pain Last administered on 10/24/16 22:02; Admin Dose 400 MLS/HR; Start at 15:00 Insulin Aspart (Novolog Insulin Pen) NOVOLOG *MILD* ALGORI... Q6 SC Last administered on 10/27/16 18:15; Admin Dose 1 UNIT; Start 10/23/16 at 18:00 ARCHANA GAFFNEY Oct 28, 2016 08:34
[2016-10-28] MEDS: D5W-0.45 NACL + KCL 20 MEQ 1,000 ML IV SCH (10:15)
--- NOTE | 2016-10-28 12:04 | PN ---
DATE: 10/28/2016 PROGRESS NOTE FOLLOWUP SUBJECTIVE: 1. Feels better. She still has some nausea, still on a clear liquid diet, which she barley takes. Status post laparotomy and placement of a diverting loop colostomy. 2. Status post EGD, with findings of a hiatal hernia and slight erosions into the esophagus. No cl ear source of bleeding. 3. Status post colonoscopy. No source of bleeding was identified. The patient had GI bleeding, blood to the colostomy, as well as the vaginal. Now spotting from the vagina persists. Patient today walked with help from PT around the block of the floor. OBJECTIVE: GENERAL: Awake, alert, oriented. VITAL SIGNS: Temperature 98, heart rate 64, respirations 16, blood pressure 105/53, saturations 93% on room air. Electrolytes, BUN and creatinine are normal. CBC reveals a WBC of 11,000. Differential with 68% ne utrophils, hemoglobin 10.7, hematocrit 34.9. ABDOMEN: Soft. Colostomy with brownish liquid fecal material. ASSESSMENT AND PLAN: Status post placement of diverting loop colostomy, status post bleeding, from somewhere which was not determined exactly. Could be from site of colovaginal fistula. Status of c olovaginal fistula due to diverticulitis. The status of diverticulitis and pelvic abscesses x2 detai led by CT scan 3 weeks ago. PLAN: 1. Get a culture from the urine and then discontinue the Bird catheter. 2. Advance diet to a soft diet. Dictated By: TICO PUCKETT MD PS/NTS Conf#: [id number] DID#: [id number]
[2016-10-28] MEDS: CLONIDINE 0.1 MG/24 HR PATCH TRANSDERM SCH (13:03)
[2016-10-28] MEDS: DULOXETINE 30 MG CAP DR PO SCH ×2 (13:03→20:43)
--- NOTE | 2016-10-28 13:08 | CONS ---
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 Patient reports bleeding started one year ago. Bleeding has been intermittent. Sometimes associated with fecal material. Patient has known rectovaginal fistula s/p surgery. Per HPI Constitutional: no complaints Eyes: no complaints ENT: no complaints Respiratory: no complaints Cardiovascular: no complaints Gastrointestinal: pain Genitourinary: no complaints Musculoskeletal: no complaints Skin: other (Abdominal incision) Neurologic: no complaints Endocrine: no complaints Lymphatic: no complaints Psychological: nl mood/affect Immunologic: no complaints Past Medical History Medical History: diabetes, diverticulitis, high cholesterol, hypertension, hyperthyroid, other Past Surgical History Total abdominal hysterectomy, heart surgery, open heart Past Surgical Hx: appendectomy, cholecystectomy Social History Alcohol Use: none Smoking Status: Former smoker Drug Use: none Exam/Review of Systems Vital Signs Vitals Vital Signs Date Time Temp Pulse Resp B/P Pulse Ox O2 Delivery O2 Flow Rate FiO2 10/28/16 07:23 98.0 64 16 105/53 93 10/25/16 15:22 Room Air Intake and Output 10/27/16 10/27/16 10/28/16 14:59 22:59 06:59 Intake Total 660 ml 1425 ml Output Total 900 ml 1190 ml Balance -240 ml 235 ml Exam Gen: NAD Abd: soft, +colostomy Vaginal exam: no cervix palpated Results Result Diagram: 10/28/16 0532 10/28/16 0530 Results 24 hrs Laboratory Tests Test 10/27/16 17:24 10/28/16 00:17 10/28/16 05:30 10/28/16 05:32 Bedside Glucose 147 136 Sodium Level 135 Potassium Level 4.5 Chloride Level 106 Carbon Dioxide Level 20 L Anion Gap 14 Blood Urea Nitrogen 15 Creatinine 0.67 Glucose Level 129 # Calcium Level 9.3 White Blood Count 11.0 #H Red Blood Count 4.00 L Hemoglobin 10.7 L Hematocrit 34.9 L Mean Corpuscular Volume 87.3 Mean Corpuscular Hemoglobin 26.8 L Mean Corpuscular Hemoglobin Concent 30.7 L Red Cell Distribution Width 16.4 H Platelet Count 420 H Mean Platelet Volume 8.3 Neutrophils % 68.4 Lymphocytes % 17.8 Monocytes % 9.3 Eosinophils % 3.4 Basophils % 0.5 Nucleated Red Blood Cells % 0.0 Neutrophils # 7.5 Lymphocytes # 2.0 Monocytes # 1.0 H Eosinophils # 0.4 Basophils # 0.1 Nucleated Red Blood Cells # 0.0 Test 10/28/16 05:56 Bedside Glucose 127 Medications Medications Current Medications Miscellaneous Information 1 ea NOTE XX ; Start 10/09/16 at 23:45 Glucose (Glutose) 15 gm Q15M PRN PO DECREASED GLUCOSE; Start 10/09/16 at 23:45 Glucose (Glutose) 22.5 gm Q15M PRN PO DECREASED GLUCOSE; Start 10/09/16 at 23:45 Dextrose (D50w Syringe) 25 ml Q15M PRN IV DECREASED GLUCOSE; Start 10/09/16 at 23:45 Dextrose (D50w Syringe) 50 ml Q15M PRN IV DECREASED GLUCOSE; Start 10/09/16 at 23:45 Glucagon (Glucagen) 1 mg Q15M PRN IM DECREASED GLUCOSE; Start 10/09/16 at 23:45 Glucose (Glutose) 15 gm Q15M PRN BUCCAL DECREASED GLUCOSE; Start 10/09/16 at 23: 45 Metoclopramide HCl (Reglan) 10 mg Q6H PRN IV NAUSEA AND/OR VOMITING Last administered on 10/26/16 15:40; Admin Dose 10 MG; Start 10/10/16 at 00:00 Acetaminophen/ Hydrocodone Bitart ([place] (10/325)) 1 tab Q4H PRN PO PAIN Last administered on 10/12/16 13:23; Admin Dose 1 TAB; Start 10/11/16 at 06:00; Status Future Hold Diphenhydramine HCl (Benadryl) 25 mg Q6H PRN IV ITCHING Last administered on 05:47; Admin Dose 25 MG; Start 10/11/16 at 06:00 Diagnostic Test (Pha) (Accu-Chek) 1 ea 02 XX ; Start 10/12/16 at 02:00 Ondansetron HCl 4 mg 4 mg Q6H PRN IV NAUSEA AND/OR VOMITING Last administered on 10/26/16 12:31; Admin Dose 4 MG; Start 10/13/16 at 19:00 Potassium Chloride/Dextrose/ Sod Cl (D5-1/2ns + KCl 20 Meq) 1,000 ml @ 75 mls/ hr [id number] IV Last administered on 10/28/16 10:15; Admin Dose 75 MLS/HR; Start 10/13/16 at 18:58 Hydralazine HCl (Apresoline) 10 mg Q6H PRN IV SBP GREATER THAN 160 Last administered on 10/14/16 10:23; Admin Dose 10 MG; Start 10/14/16 at 10:30 Clonidine HCl (Catapres-Tts 1 Patch) 1 patch Q7D TRANSDERM Last administered on 10/21/16 13:12; Admin Dose 1 PATCH; Start 10/14/16 at 11:00 Pantoprazole (Protonix Iv) 40 mg DAILY@06 IV Last administered on 10/28/16 05: 47; Admin Dose 40 MG; Start 10/15/16 at 06:00 Phenol (Cepastat Lozenge) 1 lozenge Q4H PRN MT pain Last administered on 02:18; Admin Dose 1 LOZENGE; Start 10/16/16 at 14:00 Hydromorphone HCl 0.5 mg 0.5 mg Q4H PRN IV PAIN Last administered on 10/28/16 09:28; Admin Dose 0.5 MG; Start 10/22/16 at 14:00 Acetaminophen (Ofirmev 1000mg/ 100ml Iv) 100 ml @ 400 mls/hr Q6H PRN IVPB pain Last administered on 10/24/16 22:02; Admin Dose 400 MLS/HR; Start at 15:00 Insulin Aspart (Novolog Insulin Pen) NOVOLOG *MILD* ALGORI... Q6 SC Last administered on 10/27/16 18:15; Admin Dose 1 UNIT; Start 10/23/16 at 18:00 Duloxetine HCl (Cymbalta) 60 mg BID PO ; Start 10/28/16 at 10:30 Levothyroxine Sodium (Synthroid) 150 mcg DAILY@06 PO ; Start 10/29/16 at 06:00 AUTUMN WOODRUFF Oct 28, 2016 13:08
[2016-10-28] MEDS: NACL 0.9% 3 ML SYG IV SCH ×2 (13:48→17:45)
--- NOTE | 2016-10-28 14:44 | PN ---
Date/Time of Note Date/Time of Note DATE: 10/28/16 TIME: 14:41 Assessment/Plan VTE Prophylaxis VTE Prophylaxis Intervention: SCD's Assessment/Plan Chief Complaint/Hosp Course 1. Acute diverticulitis with perforation causing diverticular abscess status post exploratory laparotomy and placement of diverting transverse colostomy for diversion of fecal stream. The patient also has colovesical fistula, keep jacobs catheter in IV abx zosyn,ID following 2. Possible GIB-resolved -EGD shows Erosive esophagitis and Atopic gastropathy, Ruby is nl 3. Hypothyroidism Continue Rx 4. Weakness and numbness of the left lower extremity-stable 5. Diabetes-currently stable Continue sliding-scale 6. Ileus 7. 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 Prophylaxis: SCDs d/w pt- will need SNF placement on discharge Problems: Subjective 24 Hr Interval Summary Gastrointestinal: pain Exam/Review of Systems Vital Signs Vitals Vital Signs Date Time Temp Pulse Resp B/P Pulse Ox O2 Delivery O2 Flow Rate FiO2 10/28/16 07:23 98.0 64 16 105/53 93 10/25/16 15:22 Room Air Intake and Output 10/27/16 10/27/16 10/28/16 15:00 23:00 07:00 Intake Total 660 ml 1425 ml Output Total 900 ml 1190 ml Balance -240 ml 235 ml Exam Constitutional: alert Respiratory: clear to auscultation Cardiovascular: regular rate and rhythm Gastrointestinal: soft, No distended Musculoskeletal: nl extremities to inspection Results Result Diagram: 10/28/16 0532 10/28/16 0530 Results 24 hrs Laboratory Tests Test 10/27/16 17:24 10/28/16 00:17 10/28/16 05:30 10/28/16 05:32 Bedside Glucose 147 136 Sodium Level 135 Potassium Level 4.5 Chloride Level 106 Carbon Dioxide Level 20 L Anion Gap 14 Blood Urea Nitrogen 15 Creatinine 0.67 Glucose Level 129 # Calcium Level 9.3 White Blood Count 11.0 #H Red Blood Count 4.00 L Hemoglobin 10.7 L Hematocrit 34.9 L Mean Corpuscular Volume 87.3 Mean Corpuscular Hemoglobin 26.8 L Mean Corpuscular Hemoglobin Concent 30.7 L Red Cell Distribution Width 16.4 H Platelet Count 420 H Mean Platelet Volume 8.3 Neutrophils % 68.4 Lymphocytes % 17.8 Monocytes % 9.3 Eosinophils % 3.4 Basophils % 0.5 Nucleated Red Blood Cells % 0.0 Neutrophils # 7.5 Lymphocytes # 2.0 Monocytes # 1.0 H Eosinophils # 0.4 Basophils # 0.1 Nucleated Red Blood Cells # 0.0 Test 10/28/16 05:56 10/28/16 13:08 Bedside Glucose 127 116 Medications Medications Current Medications Miscellaneous Information 1 ea NOTE XX ; Start 10/09/16 at 23:45 Glucose (Glutose) 15 gm Q15M PRN PO DECREASED GLUCOSE; Start 10/09/16 at 23:45 Glucose (Glutose) 22.5 gm Q15M PRN PO DECREASED GLUCOSE; Start 10/09/16 at 23:45 Dextrose (D50w Syringe) 25 ml Q15M PRN IV DECREASED GLUCOSE; Start 10/09/16 at 23:45 Dextrose (D50w Syringe) 50 ml Q15M PRN IV DECREASED GLUCOSE; Start 10/09/16 at 23:45 Glucagon (Glucagen) 1 mg Q15M PRN IM DECREASED GLUCOSE; Start 10/09/16 at 23:45 Glucose (Glutose) 15 gm Q15M PRN BUCCAL DECREASED GLUCOSE; Start 10/09/16 at 23: 45 Metoclopramide HCl (Reglan) 10 mg Q6H PRN IV NAUSEA AND/OR VOMITING Last administered on 10/26/16 15:40; Admin Dose 10 MG; Start 10/10/16 at 00:00 Acetaminophen/ Hydrocodone Bitart ([place] (10/325)) 1 tab Q4H PRN PO PAIN Last administered on 10/12/16 13:23; Admin Dose 1 TAB; Start 10/11/16 at 06:00; Status Future Hold Diphenhydramine HCl (Benadryl) 25 mg Q6H PRN IV ITCHING Last administered on 05:47; Admin Dose 25 MG; Start 10/11/16 at 06:00 Diagnostic Test (Pha) (Accu-Chek) 1 ea 02 XX ; Start 10/12/16 at 02:00 Ondansetron HCl 4 mg 4 mg Q6H PRN IV NAUSEA AND/OR VOMITING Last administered on 10/26/16 12:31; Admin Dose 4 MG; Start 10/13/16 at 19:00 Potassium Chloride/Dextrose/ Sod Cl (D5-1/2ns + KCl 20 Meq) 1,000 ml @ 75 mls/ hr [id number] IV Last administered on 10/28/16 10:15; Admin Dose 75 MLS/HR; Start 10/13/16 at 18:58 Hydralazine HCl (Apresoline) 10 mg Q6H PRN IV SBP GREATER THAN 160 Last administered on 10/14/16 10:23; Admin Dose 10 MG; Start 10/14/16 at 10:30 Clonidine HCl (Catapres-Tts 1 Patch) 1 patch Q7D TRANSDERM Last administered on 10/28/16 13:03; Admin Dose 1 PATCH; Start 10/14/16 at 11:00 Pantoprazole (Protonix Iv) 40 mg DAILY@06 IV Last administered on 10/28/16 05: 47; Admin Dose 40 MG; Start 10/15/16 at 06:00 Phenol (Cepastat Lozenge) 1 lozenge Q4H PRN MT pain Last administered on 02:18; Admin Dose 1 LOZENGE; Start 10/16/16 at 14:00 Hydromorphone HCl 0.5 mg 0.5 mg Q4H PRN IV PAIN Last administered on 10/28/16 13:44; Admin Dose 0.5 MG; Start 10/22/16 at 14:00 Acetaminophen (Ofirmev 1000mg/ 100ml Iv) 100 ml @ 400 mls/hr Q6H PRN IVPB pain Last administered on 10/24/16 22:02; Admin Dose 400 MLS/HR; Start at 15:00 Insulin Aspart (Novolog Insulin Pen) NOVOLOG *MILD* ALGORI... Q6 SC Last administered on 10/27/16 18:15; Admin Dose 1 UNIT; Start 10/23/16 at 18:00 Duloxetine HCl (Cymbalta) 60 mg BID PO Last administered on 10/28/16 13:03; Admin Dose 60 MG; Start 10/28/16 at 10:30 Levothyroxine Sodium (Synthroid) 150 mcg DAILY@06 PO ; Start 10/29/16 at 06:00 ARAMIS SY Oct 28, 2016 14:44
--- NOTE | 2016-10-28 15:16 | RADRPT ---
PROCEDURE: US Pelvis CLINICAL INDICATION: Vaginal bleeding, history of hysterectomy TECHNIQUE: Multiple sonographic images of the pelvis were obtained utilizing a transabdominal tech nique. The images were reviewed on a PACS workstation. COMPARISON: None. FINDINGS: The uterus is not visualized. There are no abnormal pelvic masses. Bilateral ovaries are not visualized. There are no abnormal adnexal masses. No significant pelvic free fluid is identified. IMPRESSION: The uterus and bilateral ovaries are not visualized. There are no abnormal pelvic or adnexal masses . RPTAT: EE Physician Madina Date Time Electronically viewed and signed by Physician Madina on 10/28/2016 15:16 /
--- NOTE | 2016-10-28 16:15 | CONS ---
Date/Time of Note Date/Time of Note DATE: 10/28/16 TIME: 16:06 Assessment/Plan Assessment/Plan Chief Complaint/Hosp Course ID PROGRESS NOTE OFF ABX DAY #5 * =>s/p 14 days Vanco IV/Zosyn 10/10 - 10/24 24H INTERVAL SUMMARY * Lethargic open eyes and motions with her hand not to bother her --- NO fevers , WBC up today * Prefers to sleep post op chase in place, colostomy - she told the ostomy nurse she is depressed not on Cymbalta * Dr. Singer here with me today and we reviewed the case together -- he would like to observe her OF ABX * 10/28 Pelvic NACHO is unremarkable PHYSICAL EXAMINATION: GENERAL: VSS,NAD, no fevers, resting comfortably HEENT: Unremarkable NECK: Supple, R-IJ TLC, no erythema, DSG C/D/I CHEST: Equal chest rise bilaterally, without dyspnea on observation HEART: Pulse RRR ABDOMEN: Soft (+)Chase, (+)Ostomy EXTREMITIES: Warm, SKIN: Warm, dry ID ASSESSMENT: 61 yo F [place] transfer on 10/10/15 with: 1. Acute diverticular abscess and rectovaginal fistula associated w/SIRS & GIB. => POD # 10/14/15 => s/p Exploratory laparotomy, I and D of pelvic abscess and diverting colostomy. 2. SIRS ESR 74, CRP 15.3 = Resolution of low grade temps, WBC normal = reactive post EGD, post-op 3. GIB -> Lower gastrointestinal bleeding likely secondary to diverticulosis- stable 4. s/p EGD 10/25/16 (+)Erosive esophagitis and Atopic gastropathy * (-)Gastric biopsy:-- No malignancy or dysplasia is identified. Cannot r/o H.Pylori 4. Diabetes-currently stable 5. Hypothyroidism 6. Depression, so stated by patient who reported to ostomy nurse she is off her Cymbalta INVASIVES: * R-IJ TLC, FC ABX ALLERGIES: SULFA/Trimethoprim CURRENT ABX: OFF ABX DAY #5 =>s/p 14 days Vanco IV/Zosyn 10/10 - 10/24 ID RECOMMENDATIONS: 1. Dr. Singer here with me today and we reviewed the case together -- he would like to continue to observe her OFF ABX * Pelvic US 10/28 unremarkable 2. Will continue to monitor her OFF ABX, apparently she still has rectovaginal fistula for which FC remains intact. 3. Check stool for H.Pylori (see patho report comments) = pending 4. Patient is depressed, resisting exam . . Problems: Consultation Date/Type/Reason Admit Date/Time Oct 09, 2016 at 17:35 Initial Consult Date 10/11/16 Type of Consultation: ID Referring Provider: ARAMIS SY Exam/Review of Systems Vital Signs Vitals Vital Signs Date Time Temp Pulse Resp B/P Pulse Ox O2 Delivery O2 Flow Rate FiO2 10/28/16 07:23 98.0 64 16 105/53 93 10/25/16 15:22 Room Air Intake and Output 10/27/16 10/27/16 10/28/16 15:00 23:00 07:00 Intake Total 660 ml 1425 ml Output Total 900 ml 1190 ml Balance -240 ml 235 ml Results Result Diagram: 10/28/16 0532 10/28/16 0530 Results 24 hrs Laboratory Tests Test 10/27/16 17:24 10/28/16 00:17 10/28/16 05:30 10/28/16 05:32 Bedside Glucose 147 136 Sodium Level 135 Potassium Level 4.5 Chloride Level 106 Carbon Dioxide Level 20 L Anion Gap 14 Blood Urea Nitrogen 15 Creatinine 0.67 Glucose Level 129 # Calcium Level 9.3 White Blood Count 11.0 #H Red Blood Count 4.00 L Hemoglobin 10.7 L Hematocrit 34.9 L Mean Corpuscular Volume 87.3 Mean Corpuscular Hemoglobin 26.8 L Mean Corpuscular Hemoglobin Concent 30.7 L Red Cell Distribution Width 16.4 H Platelet Count 420 H Mean Platelet Volume 8.3 Neutrophils % 68.4 Lymphocytes % 17.8 Monocytes % 9.3 Eosinophils % 3.4 Basophils % 0.5 Nucleated Red Blood Cells % 0.0 Neutrophils # 7.5 Lymphocytes # 2.0 Monocytes # 1.0 H Eosinophils # 0.4 Basophils # 0.1 Nucleated Red Blood Cells # 0.0 Test 10/28/16 05:56 10/28/16 13:08 Bedside Glucose 127 116 Medications Medications Current Medications Miscellaneous Information 1 ea NOTE XX ; Start 10/09/16 at 23:45 Glucose (Glutose) 15 gm Q15M PRN PO DECREASED GLUCOSE; Start 10/09/16 at 23:45 Glucose (Glutose) 22.5 gm Q15M PRN PO DECREASED GLUCOSE; Start 10/09/16 at 23:45 Dextrose (D50w Syringe) 25 ml Q15M PRN IV DECREASED GLUCOSE; Start 10/09/16 at 23:45 Dextrose (D50w Syringe) 50 ml Q15M PRN IV DECREASED GLUCOSE; Start 10/09/16 at 23:45 Glucagon (Glucagen) 1 mg Q15M PRN IM DECREASED GLUCOSE; Start 10/09/16 at 23:45 Glucose (Glutose) 15 gm Q15M PRN BUCCAL DECREASED GLUCOSE; Start 10/09/16 at 23: 45 Metoclopramide HCl (Reglan) 10 mg Q6H PRN IV NAUSEA AND/OR VOMITING Last administered on 10/26/16 15:40; Admin Dose 10 MG; Start 10/10/16 at 00:00 Acetaminophen/ Hydrocodone Bitart ([place] (10/325)) 1 tab Q4H PRN PO PAIN Last administered on 10/12/16 13:23; Admin Dose 1 TAB; Start 10/11/16 at 06:00; Status Future Hold Diphenhydramine HCl (Benadryl) 25 mg Q6H PRN IV ITCHING Last administered on 05:47; Admin Dose 25 MG; Start 10/11/16 at 06:00 Diagnostic Test (Pha) (Accu-Chek) 1 ea 02 XX ; Start 10/12/16 at 02:00 Ondansetron HCl 4 mg 4 mg Q6H PRN IV NAUSEA AND/OR VOMITING Last administered on 10/26/16 12:31; Admin Dose 4 MG; Start 10/13/16 at 19:00 Potassium Chloride/Dextrose/ Sod Cl (D5-1/2ns + KCl 20 Meq) 1,000 ml @ 75 mls/ hr [id number] IV Last administered on 10/28/16 10:15; Admin Dose 75 MLS/HR; Start 10/13/16 at 18:58 Hydralazine HCl (Apresoline) 10 mg Q6H PRN IV SBP GREATER THAN 160 Last administered on 10/14/16 10:23; Admin Dose 10 MG; Start 10/14/16 at 10:30 Clonidine HCl (Catapres-Tts 1 Patch) 1 patch Q7D TRANSDERM Last administered on 10/28/16 13:03; Admin Dose 1 PATCH; Start 10/14/16 at 11:00 Pantoprazole (Protonix Iv) 40 mg DAILY@06 IV Last administered on 10/28/16 05: 47; Admin Dose 40 MG; Start 10/15/16 at 06:00 Phenol (Cepastat Lozenge) 1 lozenge Q4H PRN MT pain Last administered on 02:18; Admin Dose 1 LOZENGE; Start 10/16/16 at 14:00 Hydromorphone HCl 0.5 mg 0.5 mg Q4H PRN IV PAIN Last administered on 10/28/16 13:44; Admin Dose 0.5 MG; Start 10/22/16 at 14:00 Acetaminophen (Ofirmev 1000mg/ 100ml Iv) 100 ml @ 400 mls/hr Q6H PRN IVPB pain Last administered on 10/24/16 22:02; Admin Dose 400 MLS/HR; Start at 15:00 Insulin Aspart (Novolog Insulin Pen) NOVOLOG *MILD* ALGORI... Q6 SC Last administered on 10/27/16 18:15; Admin Dose 1 UNIT; Start 10/23/16 at 18:00 Duloxetine HCl (Cymbalta) 60 mg BID PO Last administered on 10/28/16 13:03; Admin Dose 60 MG; Start 10/28/16 at 10:30 Levothyroxine Sodium (Synthroid) 150 mcg DAILY@06 PO ; Start 10/29/16 at 06:00 HESHAM HAJI NP Oct 28, 2016 16:15
[2016-10-28 20:06] VITALS: BP 130/62; RESP 18
[2016-10-29] MEDS: HYDROmorphONE 1 MG/ML SYG IV PRN ×6 (01:17→22:11)
[2016-10-29] MEDS: D5W-0.45 NACL + KCL 20 MEQ 1,000 ML IV SCH ×2 (01:22→17:56)
[2016-10-29] MEDS: ACCUCHECK AT 2AM (Patients on SS coverage) XX SCH (02:00)
[2016-10-29] MEDS: LEVOTHYROXINE 150 MCG TAB PO SCH (05:33)
[2016-10-29] MEDS: PANTOPRAZOLE 40 MG INJ IV SCH (05:33)
[2016-10-29] MEDS: INSULIN ASPART [NOVOLOG] 3 ML PEN SC SCH ×4 (06:00→18:00)
[2016-10-29 06:15] LABS: ADD SCAN DIFF NO
[2016-10-29 06:35] LABS: BASOPHILS % 0.5 % (0.0-2.0); EOSINOPHILS # 0.4 10^3/ul (0.0-0.5); EOSINOPHILS % 4.6 % (0.0-7.0); HEMATOCRIT 34.3 % (37.0-47.0); HEMOGLOBIN 10.7 g/dl (12.0-16.0); LYMPHOCYTES # 1.7 10^3/ul (0.8-2.9); LYMPHOCYTES % 21.4 % (15.0-51.0); MEAN CORPUSCULAR HGB CONC 31.2 g/dl (32.0-37.0); MEAN CORPUSCULAR VOLUME 86.4 fl (82.0-101.0); MEAN PLATELET VOLUME 8.4 fl (7.4-10.4); MONOCYTE # 0.8 10^3/ul (0.3-0.9); MONOCYTES % 10.4 % (0.0-11.0); NEUTROPHILS % 62.6 % (39.0-77.0); PLATELET COUNT 428 10^3/UL (140-415); RED BLOOD COUNT 3.97 10^6/ul (4.20-5.40); RED CELL DISTRIBUTION WIDTH 16.1 % (11.5-14.5); WHITE BLOOD COUNT 8.1 10^3/ul (4.8-10.8)
[2016-10-29 06:57] LABS: CALCIUM 9.6 mg/dl (8.4-10.2); CREATININE 0.52 mg/dl (0.44-1.00); POTASSIUM 4.4 mmol/L (3.5-5.1)
[2016-10-29 07:36] VITALS: BP 130/62; RESP 18
--- NOTE | 2016-10-29 07:37 | CONS ---
Date/Time of Note Date/Time of Note DATE: 10/29/16 TIME: 07:36 Assessment/Plan Assessment/Plan Additional Assessment/Plan EGD 10/25/2016 * Erosive esophagitis. * Moderate-sized hiatal hernia. * Atopic gastropathy. Gastric Biopsies: Mild superficial chronic gastritis with extensive intestinal metaplasia. negative for Helicobacter pylori organisms No malignancy or dysplasia is identified. Vaginal Bleeding improved Sigmoid diverticulitis with abscess controlled Colovesical fistula, * Exploratory laparotomy,incision and drainage,transverse loop colostomy Hyperlipidemia Major depression Diabetes mellitus Plan * PPI for 2 weeks * continue present management * Further recommendations depend on clinical course * Patient seen in collaboration with Dr. Carson Consultation Date/Type/Reason Admit Date/Time Oct 09, 2016 at 17:35 Initial Consult Date 10/11/16 Type of Consultation: Gastroenterology Referring Provider: ARAMIS SY 24 HR Interval Summary Free Text/Dictation Tolerating diet Hemoglobin stable Exam/Review of Systems Vital Signs Vitals Vital Signs Date Time Temp Pulse Resp B/P Pulse Ox O2 Delivery O2 Flow Rate FiO2 10/28/16 20:06 98.6 75 18 130/62 93 10/25/16 15:22 Room Air Intake and Output 10/28/16 10/28/16 10/29/16 15:00 23:00 07:00 Intake Total 175 ml 1310 ml 985 ml Output Total 1550 ml 1250 ml Balance 175 ml -240 ml -265 ml Exam Constitutional: alert, oriented Neck: non-tender, supple Respiratory: clear to auscultation, normal air movement Cardiovascular: nl pulses, regular rate and rhythm Gastrointestinal: bowel sounds, distended, other (colostomy functioning), soft Musculoskeletal: nl extremities to inspection Neurological: nl speech Results Result Diagram: 10/29/16 0549 10/29/16 0549 Results 24 hrs Laboratory Tests Test 10/28/16 13:08 10/28/16 17:49 10/28/16 23:55 10/29/16 05:38 Bedside Glucose 116 158 145 121 Test 10/29/16 05:49 White Blood Count 8.1 # Red Blood Count 3.97 L Hemoglobin 10.7 L Hematocrit 34.3 L Mean Corpuscular Volume 86.4 Mean Corpuscular Hemoglobin 27.0 L Mean Corpuscular Hemoglobin Concent 31.2 L Red Cell Distribution Width 16.1 H Platelet Count 428 H Mean Platelet Volume 8.4 Neutrophils % 62.6 Lymphocytes % 21.4 Monocytes % 10.4 Eosinophils % 4.6 Basophils % 0.5 Nucleated Red Blood Cells % 0.0 Neutrophils # 5.0 Lymphocytes # 1.7 Monocytes # 0.8 Eosinophils # 0.4 Basophils # 0.0 Nucleated Red Blood Cells # 0.0 Sodium Level 132 L Potassium Level 4.4 Chloride Level 106 Carbon Dioxide Level 23 Anion Gap 7 L Blood Urea Nitrogen 14 Creatinine 0.52 Glucose Level 132 Calcium Level 9.6 Medications Medications Current Medications Miscellaneous Information 1 ea NOTE XX ; Start 10/09/16 at 23:45 Glucose (Glutose) 15 gm Q15M PRN PO DECREASED GLUCOSE; Start 10/09/16 at 23:45 Glucose (Glutose) 22.5 gm Q15M PRN PO DECREASED GLUCOSE; Start 10/09/16 at 23:45 Dextrose (D50w Syringe) 25 ml Q15M PRN IV DECREASED GLUCOSE; Start 10/09/16 at 23:45 Dextrose (D50w Syringe) 50 ml Q15M PRN IV DECREASED GLUCOSE; Start 10/09/16 at 23:45 Glucagon (Glucagen) 1 mg Q15M PRN IM DECREASED GLUCOSE; Start 10/09/16 at 23:45 Glucose (Glutose) 15 gm Q15M PRN BUCCAL DECREASED GLUCOSE; Start 10/09/16 at 23: 45 Metoclopramide HCl (Reglan) 10 mg Q6H PRN IV NAUSEA AND/OR VOMITING Last administered on 10/26/16 15:40; Admin Dose 10 MG; Start 10/10/16 at 00:00 Acetaminophen/ Hydrocodone Bitart ([place] (10/325)) 1 tab Q4H PRN PO PAIN Last administered on 10/12/16 13:23; Admin Dose 1 TAB; Start 10/11/16 at 06:00; Status Future Hold Diphenhydramine HCl (Benadryl) 25 mg Q6H PRN IV ITCHING Last administered on 05:47; Admin Dose 25 MG; Start 10/11/16 at 06:00 Diagnostic Test (Pha) (Accu-Chek) 1 ea 02 XX ; Start 10/12/16 at 02:00 Ondansetron HCl 4 mg 4 mg Q6H PRN IV NAUSEA AND/OR VOMITING Last administered on 10/26/16 12:31; Admin Dose 4 MG; Start 10/13/16 at 19:00 Potassium Chloride/Dextrose/ Sod Cl (D5-1/2ns + KCl 20 Meq) 1,000 ml @ 75 mls/ hr [id number] IV Last administered on 10/29/16 01:22; Admin Dose 75 MLS/HR; Start 10/13/16 at 18:58 Hydralazine HCl (Apresoline) 10 mg Q6H PRN IV SBP GREATER THAN 160 Last administered on 10/14/16 10:23; Admin Dose 10 MG; Start 10/14/16 at 10:30 Clonidine HCl (Catapres-Tts 1 Patch) 1 patch Q7D TRANSDERM Last administered on 10/28/16 13:03; Admin Dose 1 PATCH; Start 10/14/16 at 11:00 Pantoprazole (Protonix Iv) 40 mg DAILY@06 IV Last administered on 10/29/16 05: 33; Admin Dose 40 MG; Start 10/15/16 at 06:00 Phenol (Cepastat Lozenge) 1 lozenge Q4H PRN MT pain Last administered on 02:18; Admin Dose 1 LOZENGE; Start 10/16/16 at 14:00 Hydromorphone HCl 0.5 mg 0.5 mg Q4H PRN IV PAIN Last administered on 10/29/16 05:33; Admin Dose 0.5 MG; Start 10/22/16 at 14:00 Acetaminophen (Ofirmev 1000mg/ 100ml Iv) 100 ml @ 400 mls/hr Q6H PRN IVPB pain Last administered on 10/24/16 22:02; Admin Dose 400 MLS/HR; Start at 15:00 Insulin Aspart (Novolog Insulin Pen) NOVOLOG *MILD* ALGORI... Q6 SC Last administered on 10/28/16 17:57; Admin Dose 1 UNIT; Start 10/23/16 at 18:00 Duloxetine HCl (Cymbalta) 60 mg BID PO Last administered on 10/28/16 20:43; Admin Dose 60 MG; Start 10/28/16 at 10:30 Levothyroxine Sodium (Synthroid) 150 mcg DAILY@06 PO Last administered on 05:33; Admin Dose 150 MCG; Start 10/29/16 at 06:00 ARCHANA GAFFNEY Oct 29, 2016 07:37
[2016-10-29] MEDS: DULOXETINE 30 MG CAP DR PO SCH ×2 (09:50→20:28)
--- NOTE | 2016-10-29 17:02 | PN ---
Date/Time of Note Date/Time of Note DATE: 10/29/16 TIME: 17:01 Assessment/Plan VTE Prophylaxis VTE Prophylaxis Intervention: SCD's Lines/Catheters Urinary Cath still in place: No (DISCONTINUED TODAY.) Assessment/Plan Chief Complaint/Hosp Course 1. Acute diverticulitis with perforation causing diverticular abscess status post exploratory laparotomy and placement of diverting transverse colostomy for diversion of fecal stream. The patient also has colovesical fistula, keep jacobs catheter in IV abx zosyn,ID following 2. Possible GIB-resolved -EGD shows Erosive esophagitis and Atopic gastropathy, [place] is nl 3. Hypothyroidism Continue Rx 4. Weakness and numbness of the left lower extremity-stable 5. Diabetes-currently stable Continue sliding-scale 6. Ileus 7. 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 -Greenhouse Technician consult appreciated Prophylaxis: SCDs d/w pt- will need SNF placement on discharge Problems: Subjective 24 Hr Interval Summary Gastrointestinal: pain Exam/Review of Systems Vital Signs Vitals Vital Signs Date Time Temp Pulse Resp B/P Pulse Ox O2 Delivery O2 Flow Rate FiO2 10/29/16 07:36 98.2 73 18 130/62 95 10/25/16 15:22 Room Air Intake and Output 10/28/16 10/28/16 10/29/16 15:00 23:00 07:00 Intake Total 175 ml 1310 ml 985 ml Output Total 1550 ml 1250 ml Balance 175 ml -240 ml -265 ml Exam Constitutional: alert, oriented Respiratory: clear to auscultation Cardiovascular: regular rate and rhythm Gastrointestinal: soft, No distended Musculoskeletal: nl extremities to inspection Results Result Diagram: 10/29/16 0549 10/29/16 0549 Results 24 hrs Laboratory Tests Test 10/28/16 17:49 10/28/16 23:55 10/29/16 05:38 10/29/16 05:49 Bedside Glucose 158 145 121 White Blood Count 8.1 # Red Blood Count 3.97 L Hemoglobin 10.7 L Hematocrit 34.3 L Mean Corpuscular Volume 86.4 Mean Corpuscular Hemoglobin 27.0 L Mean Corpuscular Hemoglobin Concent 31.2 L Red Cell Distribution Width 16.1 H Platelet Count 428 H Mean Platelet Volume 8.4 Neutrophils % 62.6 Lymphocytes % 21.4 Monocytes % 10.4 Eosinophils % 4.6 Basophils % 0.5 Nucleated Red Blood Cells % 0.0 Neutrophils # 5.0 Lymphocytes # 1.7 Monocytes # 0.8 Eosinophils # 0.4 Basophils # 0.0 Nucleated Red Blood Cells # 0.0 Sodium Level 132 L Potassium Level 4.4 Chloride Level 106 Carbon Dioxide Level 23 Anion Gap 7 L Blood Urea Nitrogen 14 Creatinine 0.52 Glucose Level 132 Calcium Level 9.6 Test 10/29/16 11:57 Bedside Glucose 129 Medications Medications Current Medications Miscellaneous Information 1 ea NOTE XX ; Start 10/09/16 at 23:45 Glucose (Glutose) 15 gm Q15M PRN PO DECREASED GLUCOSE; Start 10/09/16 at 23:45 Glucose (Glutose) 22.5 gm Q15M PRN PO DECREASED GLUCOSE; Start 10/09/16 at 23:45 Dextrose (D50w Syringe) 25 ml Q15M PRN IV DECREASED GLUCOSE; Start 10/09/16 at 23:45 Dextrose (D50w Syringe) 50 ml Q15M PRN IV DECREASED GLUCOSE; Start 10/09/16 at 23:45 Glucagon (Glucagen) 1 mg Q15M PRN IM DECREASED GLUCOSE; Start 10/09/16 at 23:45 Glucose (Glutose) 15 gm Q15M PRN BUCCAL DECREASED GLUCOSE; Start 10/09/16 at 23: 45 Metoclopramide HCl (Reglan) 10 mg Q6H PRN IV NAUSEA AND/OR VOMITING Last administered on 10/26/16 15:40; Admin Dose 10 MG; Start 10/10/16 at 00:00 Acetaminophen/ Hydrocodone Bitart ([place] (10/325)) 1 tab Q4H PRN PO PAIN Last administered on 10/12/16 13:23; Admin Dose 1 TAB; Start 10/11/16 at 06:00; Status Future Hold Diphenhydramine HCl (Benadryl) 25 mg Q6H PRN IV ITCHING Last administered on 05:47; Admin Dose 25 MG; Start 10/11/16 at 06:00 Diagnostic Test (Pha) (Accu-Chek) 1 ea 02 XX ; Start 10/12/16 at 02:00 Ondansetron HCl 4 mg 4 mg Q6H PRN IV NAUSEA AND/OR VOMITING Last administered on 10/26/16 12:31; Admin Dose 4 MG; Start 10/13/16 at 19:00 Potassium Chloride/Dextrose/ Sod Cl (D5-1/2ns + KCl 20 Meq) 1,000 ml @ 75 mls/ hr [id number] IV Last administered on 10/29/16 01:22; Admin Dose 75 MLS/HR; Start 10/13/16 at 18:58 Hydralazine HCl (Apresoline) 10 mg Q6H PRN IV SBP GREATER THAN 160 Last administered on 10/14/16 10:23; Admin Dose 10 MG; Start 10/14/16 at 10:30 Clonidine HCl (Catapres-Tts 1 Patch) 1 patch Q7D TRANSDERM Last administered on 10/28/16 13:03; Admin Dose 1 PATCH; Start 10/14/16 at 11:00 Pantoprazole (Protonix Iv) 40 mg DAILY@06 IV Last administered on 10/29/16 05: 33; Admin Dose 40 MG; Start 10/15/16 at 06:00 Phenol (Cepastat Lozenge) 1 lozenge Q4H PRN MT pain Last administered on 02:18; Admin Dose 1 LOZENGE; Start 10/16/16 at 14:00 Hydromorphone HCl 0.5 mg 0.5 mg Q4H PRN IV PAIN Last administered on 10/29/16 13:59; Admin Dose 0.5 MG; Start 10/22/16 at 14:00 Acetaminophen (Ofirmev 1000mg/ 100ml Iv) 100 ml @ 400 mls/hr Q6H PRN IVPB pain Last administered on 10/24/16 22:02; Admin Dose 400 MLS/HR; Start at 15:00 Insulin Aspart (Novolog Insulin Pen) NOVOLOG *MILD* ALGORI... Q6 SC Last administered on 10/28/16 17:57; Admin Dose 1 UNIT; Start 10/23/16 at 18:00 Duloxetine HCl (Cymbalta) 60 mg BID PO Last administered on 10/29/16 09:50; Admin Dose 60 MG; Start 10/28/16 at 10:30 Levothyroxine Sodium (Synthroid) 150 mcg DAILY@06 PO Last administered on 05:33; Admin Dose 150 MCG; Start 10/29/16 at 06:00 ARAMIS SY Oct 29, 2016 17:02
[2016-10-29 19:53] VITALS: BP 144/62; RESP 18
--- NOTE | 2016-10-29 20:32 | CONS ---
Date/Time of Note Date/Time of Note DATE: 10/29/16 TIME: 20:29 Assessment/Plan Assessment/Plan Chief Complaint/Hosp Course ID PROGRESS NOTE OFF ABX DAY #6 * =>s/p 14 days Vanco IV/Zosyn 10/10 - 10/24 24H INTERVAL SUMMARY * No fevers, WBC down today, * Dr. Singer presented to bedside yesterday and reviewed the case together -- he would like to observe her OF ABX * 10/28 Pelvic NACHO is unremarkable * Repeat Urine Cx 10/28 URINE CULTURE Preliminary NO GROWTH AFTER 24 HOURS PHYSICAL EXAMINATION: GENERAL: VSS,NAD, no fevers, resting comfortably HEENT: Unremarkable NECK: Supple, R-IJ TLC, no erythema, DSG C/D/I CHEST: Equal chest rise bilaterally, without dyspnea on observation HEART: Pulse RRR ABDOMEN: Soft (+)Mio, (+)Ostomy EXTREMITIES: Warm, SKIN: Warm, dry ID ASSESSMENT: 61 yo F [place] transfer on 10/10/15 with: 1. Acute diverticular abscess and rectovaginal fistula associated w/SIRS & GIB. => POD # 10/14/15 => s/p Exploratory laparotomy, I and D of pelvic abscess and diverting colostomy. 2. SIRS ESR 74, CRP 15.3 = Resolution of low grade temps, WBC normal = reactive post EGD, post-op 3. GIB -> Lower gastrointestinal bleeding likely secondary to diverticulosis- stable 4. s/p EGD 10/25/16 (+)Erosive esophagitis and Atopic gastropathy * (-)Gastric biopsy:-- No malignancy or dysplasia is identified. Cannot r/o H.Pylori 4. Diabetes-currently stable 5. Hypothyroidism 6. Depression, so stated by patient who reported to ostomy nurse she is off her Cymbalta INVASIVES: * R-IJ TLC, FC ABX ALLERGIES: SULFA/Trimethoprim CURRENT ABX: OFF ABX DAY #6 =>s/p 14 days Vanco IV/Zosyn 10/10 - 10/24 ID RECOMMENDATIONS: 1. Continue to observe OFF ABX * Pelvic US 10/28 unremarkable * 10/28/16 Urine 10/28 URINE CULTURE Preliminary NO GROWTH AFTER 24 HOURS 2. Will continue to monitor her OFF ABX, apparently she still has rectovaginal fistula for which FC remains intact. 3. Check stool for H.Pylori (see patho report comments) = pending . . . Problems: Consultation Date/Type/Reason Admit Date/Time Oct 09, 2016 at 17:35 Initial Consult Date 10/11/16 Type of Consultation: ID Referring Provider: ARAMIS SY Exam/Review of Systems Vital Signs Vitals Vital Signs Date Time Temp Pulse Resp B/P Pulse Ox O2 Delivery O2 Flow Rate FiO2 10/29/16 19:53 98.5 77 18 144/62 94 10/25/16 15:22 Room Air Intake and Output 10/28/16 10/28/16 10/29/16 15:00 23:00 07:00 Intake Total 175 ml 1310 ml 985 ml Output Total 1550 ml 1250 ml Balance 175 ml -240 ml -265 ml Results Result Diagram: 10/29/16 0549 10/29/16 0549 Results 24 hrs Laboratory Tests Test 10/28/16 23:55 10/29/16 05:38 10/29/16 05:49 10/29/16 11:57 Bedside Glucose 145 121 129 White Blood Count 8.1 # Red Blood Count 3.97 L Hemoglobin 10.7 L Hematocrit 34.3 L Mean Corpuscular Volume 86.4 Mean Corpuscular Hemoglobin 27.0 L Mean Corpuscular Hemoglobin Concent 31.2 L Red Cell Distribution Width 16.1 H Platelet Count 428 H Mean Platelet Volume 8.4 Neutrophils % 62.6 Lymphocytes % 21.4 Monocytes % 10.4 Eosinophils % 4.6 Basophils % 0.5 Nucleated Red Blood Cells % 0.0 Neutrophils # 5.0 Lymphocytes # 1.7 Monocytes # 0.8 Eosinophils # 0.4 Basophils # 0.0 Nucleated Red Blood Cells # 0.0 Sodium Level 132 L Potassium Level 4.4 Chloride Level 106 Carbon Dioxide Level 23 Anion Gap 7 L Blood Urea Nitrogen 14 Creatinine 0.52 Glucose Level 132 Calcium Level 9.6 Test 10/29/16 17:54 Bedside Glucose 103 Medications Medications Current Medications Miscellaneous Information 1 ea NOTE XX ; Start 10/09/16 at 23:45 Glucose (Glutose) 15 gm Q15M PRN PO DECREASED GLUCOSE; Start 10/09/16 at 23:45 Glucose (Glutose) 22.5 gm Q15M PRN PO DECREASED GLUCOSE; Start 10/09/16 at 23:45 Dextrose (D50w Syringe) 25 ml Q15M PRN IV DECREASED GLUCOSE; Start 10/09/16 at 23:45 Dextrose (D50w Syringe) 50 ml Q15M PRN IV DECREASED GLUCOSE; Start 10/09/16 at 23:45 Glucagon (Glucagen) 1 mg Q15M PRN IM DECREASED GLUCOSE; Start 10/09/16 at 23:45 Glucose (Glutose) 15 gm Q15M PRN BUCCAL DECREASED GLUCOSE; Start 10/09/16 at 23: 45 Metoclopramide HCl (Reglan) 10 mg Q6H PRN IV NAUSEA AND/OR VOMITING Last administered on 10/26/16 15:40; Admin Dose 10 MG; Start 10/10/16 at 00:00 Acetaminophen/ Hydrocodone Bitart ([place] ()) 1 tab Q4H PRN PO PAIN Last administered on 10/12/16 13:23; Admin Dose 1 TAB; Start 10/11/16 at 06:00; Status Future Hold Diphenhydramine HCl (Benadryl) 25 mg Q6H PRN IV ITCHING Last administered on 05:47; Admin Dose 25 MG; Start 10/11/16 at 06:00 Diagnostic Test (Pha) (Accu-Chek) 1 ea 02 XX ; Start 10/12/16 at 02:00 Ondansetron HCl 4 mg 4 mg Q6H PRN IV NAUSEA AND/OR VOMITING Last administered on 10/26/16 12:31; Admin Dose 4 MG; Start 10/13/16 at 19:00 Potassium Chloride/Dextrose/ Sod Cl (D5-1/2ns + KCl 20 Meq) 1,000 ml @ 75 mls/ hr [id number] IV Last administered on 10/29/16 17:56; Admin Dose 75 MLS/HR; Start 10/13/16 at 18:58 Hydralazine HCl (Apresoline) 10 mg Q6H PRN IV SBP GREATER THAN 160 Last administered on 10/14/16 10:23; Admin Dose 10 MG; Start 10/14/16 at 10:30 Clonidine HCl (Catapres-Tts 1 Patch) 1 patch Q7D TRANSDERM Last administered on 10/28/16 13:03; Admin Dose 1 PATCH; Start 10/14/16 at 11:00 Pantoprazole (Protonix Iv) 40 mg DAILY@06 IV Last administered on 10/29/16 05: 33; Admin Dose 40 MG; Start 10/15/16 at 06:00 Phenol (Cepastat Lozenge) 1 lozenge Q4H PRN MT pain Last administered on 02:18; Admin Dose 1 LOZENGE; Start 10/16/16 at 14:00 Hydromorphone HCl 0.5 mg 0.5 mg Q4H PRN IV PAIN Last administered on 10/29/16 17:57; Admin Dose 0.5 MG; Start 10/22/16 at 14:00 Acetaminophen (Ofirmev 1000mg/ 100ml Iv) 100 ml @ 400 mls/hr Q6H PRN IVPB pain Last administered on 10/24/16 22:02; Admin Dose 400 MLS/HR; Start at 15:00 Insulin Aspart (Novolog Insulin Pen) NOVOLOG *MILD* ALGORI... Q6 SC Last administered on 10/28/16 17:57; Admin Dose 1 UNIT; Start 10/23/16 at 18:00 Duloxetine HCl (Cymbalta) 60 mg BID PO Last administered on 10/29/16 09:50; Admin Dose 60 MG; Start 10/28/16 at 10:30 Levothyroxine Sodium (Synthroid) 150 mcg DAILY@06 PO Last administered on 05:33; Admin Dose 150 MCG; Start 10/29/16 at 06:00 HESHAM HAJI NP Oct 29, 2016 20:32
[2016-10-30] MEDS: ACCUCHECK AT 2AM (Patients on SS coverage) XX SCH (00:54)
[2016-10-30] MEDS: HYDROmorphONE 1 MG/ML SYG IV PRN ×6 (02:15→22:50)
[2016-10-30] MEDS: LEVOTHYROXINE 150 MCG TAB PO SCH (05:33)
[2016-10-30] MEDS: PANTOPRAZOLE 40 MG INJ IV SCH (05:33)
[2016-10-30] MEDS: INSULIN ASPART [NOVOLOG] 3 ML PEN SC SCH ×4 (05:40→17:42)
[2016-10-30 06:13] LABS: ADD SCAN DIFF NO
[2016-10-30 06:18] LABS: BASOPHIL # 0.1 10^3/ul (0.0-0.1); BASOPHILS % 1.1 % (0.0-2.0); EOSINOPHILS # 0.3 10^3/ul (0.0-0.5); EOSINOPHILS % 4.2 % (0.0-7.0); HEMATOCRIT 32.9 % (37.0-47.0); HEMOGLOBIN 10.2 g/dl (12.0-16.0); LYMPHOCYTES # 1.7 10^3/ul (0.8-2.9); LYMPHOCYTES % 25.9 % (15.0-51.0); MEAN CORPUSCULAR HEMOGLOBIN 26.8 pg (29.0-33.0); MEAN CORPUSCULAR VOLUME 86.4 fl (82.0-101.0); MEAN PLATELET VOLUME 8.8 fl (7.4-10.4); MONOCYTE # 0.7 10^3/ul (0.3-0.9); MONOCYTES % 10.9 % (0.0-11.0); NEUTROPHIL # 3.8 10^3/ul (1.6-7.5); NEUTROPHILS % 57.4 % (39.0-77.0); PLATELET COUNT 395 10^3/UL (140-415); RED BLOOD COUNT 3.81 10^6/ul (4.20-5.40); RED CELL DISTRIBUTION WIDTH 16.4 % (11.5-14.5); WHITE BLOOD COUNT 6.6 10^3/ul (4.8-10.8)
[2016-10-30 06:39] LABS: CREATININE 0.41 mg/dl (0.44-1.00); POTASSIUM 3.6 mmol/L (3.5-5.1)
[2016-10-30 07:35] VITALS: BP 123/66; RESP 20
[2016-10-30] MEDS: DULOXETINE 30 MG CAP DR PO SCH ×2 (09:06→21:00)
[2016-10-30] MEDS: D5W-0.45 NACL + KCL 20 MEQ 1,000 ML IV SCH ×2 (09:06→22:50)
--- NOTE | 2016-10-30 10:53 | CONS ---
Date/Time of Note Date/Time of Note DATE: 10/30/16 TIME: 10:51 Assessment/Plan Assessment/Plan Additional Assessment/Plan EGD 10/25/2016 * Erosive esophagitis. * Moderate-sized hiatal hernia. * Atopic gastropathy. Gastric Biopsies: Mild superficial chronic gastritis with extensive intestinal metaplasia. negative for Helicobacter pylori organisms No malignancy or dysplasia is identified. Vaginal Bleeding improved Sigmoid diverticulitis with abscess controlled Colovesical fistula, * Exploratory laparotomy,incision and drainage,transverse loop colostomy Hyperlipidemia Major depression Diabetes mellitus Plan * Continue PPI * continue present management * Further recommendations depend on clinical course * Patient seen in collaboration with Dr. Carson Consultation Date/Type/Reason Admit Date/Time Oct 09, 2016 at 17:35 Initial Consult Date 10/11/16 Type of Consultation: Gastroenterology Referring Provider: ARAMIS SY 24 HR Interval Summary Free Text/Dictation Tolerating diet Hemoglobin stable Exam/Review of Systems Vital Signs Vitals Vital Signs Date Time Temp Pulse Resp B/P Pulse Ox O2 Delivery O2 Flow Rate FiO2 10/30/16 07:35 97.3 74 20 123/66 94 Intake and Output 10/29/16 10/29/16 10/30/16 15:00 23:00 07:00 Intake Total 1325 ml 1090 ml Output Total 2250 ml 900 ml Balance -925 ml 190 ml Exam Constitutional: alert, oriented Neck: non-tender, supple Respiratory: clear to auscultation, normal air movement Cardiovascular: nl pulses, regular rate and rhythm Gastrointestinal: bowel sounds, distended, other (colostomy functioning), soft Musculoskeletal: nl extremities to inspection Neurological: nl speech Results Result Diagram: 10/30/16 0427 10/30/16 0427 Results 24 hrs Laboratory Tests Test 10/29/16 11:57 10/29/16 17:54 10/30/16 00:51 10/30/16 04:27 Bedside Glucose 129 103 114 White Blood Count 6.6 Red Blood Count 3.81 L Hemoglobin 10.2 L Hematocrit 32.9 L Mean Corpuscular Volume 86.4 Mean Corpuscular Hemoglobin 26.8 L Mean Corpuscular Hemoglobin Concent 31.0 L Red Cell Distribution Width 16.4 H Platelet Count 395 Mean Platelet Volume 8.8 Neutrophils % 57.4 Lymphocytes % 25.9 Monocytes % 10.9 Eosinophils % 4.2 Basophils % 1.1 Nucleated Red Blood Cells % 0.0 Neutrophils # 3.8 Lymphocytes # 1.7 Monocytes # 0.7 Eosinophils # 0.3 Basophils # 0.1 Nucleated Red Blood Cells # 0.0 Sodium Level 132 L Potassium Level 3.6 Chloride Level 106 Carbon Dioxide Level 23 Anion Gap 7 L Blood Urea Nitrogen 8 Creatinine 0.41 L Glucose Level 113 Calcium Level 9.0 Test 10/30/16 05:39 Bedside Glucose 119 Medications Medications Current Medications Miscellaneous Information 1 ea NOTE XX ; Start 10/09/16 at 23:45 Glucose (Glutose) 15 gm Q15M PRN PO DECREASED GLUCOSE; Start 10/09/16 at 23:45 Glucose (Glutose) 22.5 gm Q15M PRN PO DECREASED GLUCOSE; Start 10/09/16 at 23:45 Dextrose (D50w Syringe) 25 ml Q15M PRN IV DECREASED GLUCOSE; Start 10/09/16 at 23:45 Dextrose (D50w Syringe) 50 ml Q15M PRN IV DECREASED GLUCOSE; Start 10/09/16 at 23:45 Glucagon (Glucagen) 1 mg Q15M PRN IM DECREASED GLUCOSE; Start 10/09/16 at 23:45 Glucose (Glutose) 15 gm Q15M PRN BUCCAL DECREASED GLUCOSE; Start 10/09/16 at 23: 45 Metoclopramide HCl (Reglan) 10 mg Q6H PRN IV NAUSEA AND/OR VOMITING Last administered on 10/26/16 15:40; Admin Dose 10 MG; Start 10/10/16 at 00:00 Acetaminophen/ Hydrocodone Bitart ([place] (10/325)) 1 tab Q4H PRN PO PAIN Last administered on 10/12/16 13:23; Admin Dose 1 TAB; Start 10/11/16 at 06:00; Status Future Hold Diphenhydramine HCl (Benadryl) 25 mg Q6H PRN IV ITCHING Last administered on 05:47; Admin Dose 25 MG; Start 10/11/16 at 06:00 Diagnostic Test (Pha) (Accu-Chek) 1 ea 02 XX ; Start 10/12/16 at 02:00 Ondansetron HCl 4 mg 4 mg Q6H PRN IV NAUSEA AND/OR VOMITING Last administered on 10/26/16 12:31; Admin Dose 4 MG; Start 10/13/16 at 19:00 Potassium Chloride/Dextrose/ Sod Cl (D5-1/2ns + KCl 20 Meq) 1,000 ml @ 75 mls/ hr [id number] IV Last administered on 10/30/16 09:06; Admin Dose 75 MLS/HR; Start 10/13/16 at 18:58 Hydralazine HCl (Apresoline) 10 mg Q6H PRN IV SBP GREATER THAN 160 Last administered on 10/14/16 10:23; Admin Dose 10 MG; Start 10/14/16 at 10:30 Clonidine HCl (Catapres-Tts 1 Patch) 1 patch Q7D TRANSDERM Last administered on 10/28/16 13:03; Admin Dose 1 PATCH; Start 10/14/16 at 11:00 Pantoprazole (Protonix Iv) 40 mg DAILY@06 IV Last administered on 10/30/16 05: 33; Admin Dose 40 MG; Start 10/15/16 at 06:00 Phenol (Cepastat Lozenge) 1 lozenge Q4H PRN MT pain Last administered on 02:18; Admin Dose 1 LOZENGE; Start 10/16/16 at 14:00 Hydromorphone HCl 0.5 mg 0.5 mg Q4H PRN IV PAIN Last administered on 10/30/16 10:03; Admin Dose 0.5 MG; Start 10/22/16 at 14:00 Acetaminophen (Ofirmev 1000mg/ 100ml Iv) 100 ml @ 400 mls/hr Q6H PRN IVPB pain Last administered on 10/24/16 22:02; Admin Dose 400 MLS/HR; Start at 15:00 Insulin Aspart (Novolog Insulin Pen) NOVOLOG *MILD* ALGORI... Q6 SC Last administered on 10/28/16 17:57; Admin Dose 1 UNIT; Start 10/23/16 at 18:00 Duloxetine HCl (Cymbalta) 60 mg BID PO Last administered on 10/30/16 09:06; Admin Dose 60 MG; Start 10/28/16 at 10:30 Levothyroxine Sodium (Synthroid) 150 mcg DAILY@06 PO Last administered on 05:33; Admin Dose 150 MCG; Start 10/29/16 at 06:00 ARCHANA GAFFNEY Oct 30, 2016 10:53
[2016-10-30] MEDS ORDERED: BARIUM SULF 2% 450 ML BTL (BERRY SMOOTHIE) PO ONE (17:00)
--- NOTE | 2016-10-30 17:46 | PN ---
Date/Time of Note Date/Time of Note DATE: 10/30/16 TIME: 17:44 Assessment/Plan VTE Prophylaxis VTE Prophylaxis Intervention: SCD's Lines/Catheters Urinary Cath still in place: No (DISCONTINUED TODAY.) Assessment/Plan Chief Complaint/Hosp Course 1. Acute diverticulitis with perforation causing diverticular abscess status post exploratory laparotomy and placement of diverting transverse colostomy for diversion of fecal stream. The patient also has colovesical fistula, keep jacobs catheter in IV abx zosyn,ID following 2. Possible GIB-resolved -EGD shows Erosive esophagitis and Atopic gastropathy, [place] is nl 3. Hypothyroidism Continue Rx 4. Weakness and numbness of the left lower extremity-stable 5. Diabetes-currently stable Continue sliding-scale 6. Ileus 7. 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 -[employer] consult appreciated Prophylaxis: SCDs d/w pt- will need SNF placement on discharge Problems: Subjective 24 Hr Interval Summary Gastrointestinal: pain Exam/Review of Systems Vital Signs Vitals Vital Signs Date Time Temp Pulse Resp B/P Pulse Ox O2 Delivery O2 Flow Rate FiO2 10/30/16 07:35 97.3 74 20 123/66 94 Intake and Output 10/29/16 10/29/16 10/30/16 15:00 23:00 07:00 Intake Total 1325 ml 1090 ml Output Total 2250 ml 900 ml Balance -925 ml 190 ml Exam Constitutional: alert Respiratory: clear to auscultation Cardiovascular: regular rate and rhythm Gastrointestinal: soft, No distended Musculoskeletal: nl extremities to inspection Results Result Diagram: 10/30/16 0427 10/30/16 0427 Results 24 hrs Laboratory Tests Test 10/29/16 17:54 10/30/16 00:51 10/30/16 04:27 10/30/16 05:39 Bedside Glucose 103 114 119 White Blood Count 6.6 Red Blood Count 3.81 L Hemoglobin 10.2 L Hematocrit 32.9 L Mean Corpuscular Volume 86.4 Mean Corpuscular Hemoglobin 26.8 L Mean Corpuscular Hemoglobin Concent 31.0 L Red Cell Distribution Width 16.4 H Platelet Count 395 Mean Platelet Volume 8.8 Neutrophils % 57.4 Lymphocytes % 25.9 Monocytes % 10.9 Eosinophils % 4.2 Basophils % 1.1 Nucleated Red Blood Cells % 0.0 Neutrophils # 3.8 Lymphocytes # 1.7 Monocytes # 0.7 Eosinophils # 0.3 Basophils # 0.1 Nucleated Red Blood Cells # 0.0 Sodium Level 132 L Potassium Level 3.6 Chloride Level 106 Carbon Dioxide Level 23 Anion Gap 7 L Blood Urea Nitrogen 8 Creatinine 0.41 L Glucose Level 113 Calcium Level 9.0 Test 10/30/16 12:22 10/30/16 17:37 Bedside Glucose 115 115 Medications Medications Current Medications Miscellaneous Information 1 ea NOTE XX ; Start 10/09/16 at 23:45 Glucose (Glutose) 15 gm Q15M PRN PO DECREASED GLUCOSE; Start 10/09/16 at 23:45 Glucose (Glutose) 22.5 gm Q15M PRN PO DECREASED GLUCOSE; Start 10/09/16 at 23:45 Dextrose (D50w Syringe) 25 ml Q15M PRN IV DECREASED GLUCOSE; Start 10/09/16 at 23:45 Dextrose (D50w Syringe) 50 ml Q15M PRN IV DECREASED GLUCOSE; Start 10/09/16 at 23:45 Glucagon (Glucagen) 1 mg Q15M PRN IM DECREASED GLUCOSE; Start 10/09/16 at 23:45 Glucose (Glutose) 15 gm Q15M PRN BUCCAL DECREASED GLUCOSE; Start 10/09/16 at 23: 45 Metoclopramide HCl (Reglan) 10 mg Q6H PRN IV NAUSEA AND/OR VOMITING Last administered on 10/26/16 15:40; Admin Dose 10 MG; Start 10/10/16 at 00:00 Acetaminophen/ Hydrocodone Bitart ([place] (10/325)) 1 tab Q4H PRN PO PAIN Last administered on 10/12/16 13:23; Admin Dose 1 TAB; Start 10/11/16 at 06:00; Status Future Hold Diphenhydramine HCl (Benadryl) 25 mg Q6H PRN IV ITCHING Last administered on 05:47; Admin Dose 25 MG; Start 10/11/16 at 06:00 Diagnostic Test (Pha) (Accu-Chek) 1 ea 02 XX ; Start 10/12/16 at 02:00 Ondansetron HCl 4 mg 4 mg Q6H PRN IV NAUSEA AND/OR VOMITING Last administered on 10/26/16 12:31; Admin Dose 4 MG; Start 10/13/16 at 19:00 Potassium Chloride/Dextrose/ Sod Cl (D5-1/2ns + KCl 20 Meq) 1,000 ml @ 75 mls/ hr [id number] IV Last administered on 10/30/16 09:06; Admin Dose 75 MLS/HR; Start 10/13/16 at 18:58 Hydralazine HCl (Apresoline) 10 mg Q6H PRN IV SBP GREATER THAN 160 Last administered on 10/14/16 10:23; Admin Dose 10 MG; Start 10/14/16 at 10:30 Clonidine HCl (Catapres-Tts 1 Patch) 1 patch Q7D TRANSDERM Last administered on 10/28/16 13:03; Admin Dose 1 PATCH; Start 10/14/16 at 11:00 Pantoprazole (Protonix Iv) 40 mg DAILY@06 IV Last administered on 10/30/16 05: 33; Admin Dose 40 MG; Start 10/15/16 at 06:00 Phenol (Cepastat Lozenge) 1 lozenge Q4H PRN MT pain Last administered on 02:18; Admin Dose 1 LOZENGE; Start 10/16/16 at 14:00 Hydromorphone HCl 0.5 mg 0.5 mg Q4H PRN IV PAIN Last administered on 10/30/16 14:56; Admin Dose 0.5 MG; Start 10/22/16 at 14:00 Acetaminophen (Ofirmev 1000mg/ 100ml Iv) 100 ml @ 400 mls/hr Q6H PRN IVPB pain Last administered on 10/24/16 22:02; Admin Dose 400 MLS/HR; Start at 15:00 Insulin Aspart (Novolog Insulin Pen) NOVOLOG *MILD* ALGORI... Q6 SC Last administered on 10/28/16 17:57; Admin Dose 1 UNIT; Start 10/23/16 at 18:00 Duloxetine HCl (Cymbalta) 60 mg BID PO Last administered on 10/30/16 09:06; Admin Dose 60 MG; Start 10/28/16 at 10:30 Levothyroxine Sodium (Synthroid) 150 mcg DAILY@06 PO Last administered on 05:33; Admin Dose 150 MCG; Start 10/29/16 at 06:00 ARAMIS YS Oct 30, 2016 17:45
[2016-10-30 19:41] VITALS: BP 147/69; RESP 20
--- NOTE | 2016-10-30 20:16 | CONS ---
Date/Time of Note Date/Time of Note DATE: 10/30/16 TIME: 20:13 Assessment/Plan Assessment/Plan Chief Complaint/Hosp Course ID PROGRESS NOTE OFF ABX DAY #7 * =>s/p 14 days Vanco IV/Zosyn 10/10 - 10/24 24H INTERVAL SUMMARY * Lethargy persists, depression persists, ostomy is producing stool, wound fernando still intact * Stool for H.Pylori sent out returned NEGATIVE * 10/28 Pelvic NACHO is unremarkable * Repeat Urine Cx 10/28 URINE CULTURE Preliminary NO GROWTH AFTER 24 HOURS PHYSICAL EXAMINATION: GENERAL: VSS,NAD, no fevers, resting comfortably HEENT: Unremarkable NECK: Supple, R-IJ TLC, no erythema, DSG C/D/I CHEST: Equal chest rise bilaterally, without dyspnea on observation HEART: Pulse RRR ABDOMEN: Soft (+)[place], (+)Ostomy EXTREMITIES: Warm, SKIN: Warm, dry ID ASSESSMENT: 61 yo F [place] transfer on 10/10/15 with: 1. Acute diverticular abscess and rectovaginal fistula associated w/SIRS & GIB. => POD # 10/14/15 => s/p Exploratory laparotomy, I and D of pelvic abscess and diverting colostomy. 2. SIRS ESR 74, CRP 15.3 = Resolution of low grade temps, WBC normal = reactive post EGD, post-op 3. GIB -> Lower gastrointestinal bleeding likely secondary to diverticulosis- stable 4. s/p EGD 10/25/16 (+)Erosive esophagitis and Atopic gastropathy * (-)Gastric biopsy:-- No malignancy or dysplasia is identified. Cannot r/o H.Pylori 4. Diabetes-currently stable 5. Hypothyroidism 6. Depression, so stated by patient who reported to ostomy nurse she is off her Cymbalta INVASIVES: * R-IJ TLC, FC ABX ALLERGIES: SULFA/Trimethoprim CURRENT ABX: OFF ABX DAY #7 =>s/p 14 days Vanco IV/Zosyn 10/10 - 10/24 ID RECOMMENDATIONS: 1. Continue to observe OFF ABX * Pelvic US 10/28 unremarkable * 10/28/16 Urine 10/28 URINE CULTURE Preliminary NO GROWTH AFTER [address] Singer recommending to keep her OFF ABX NOTE: -- ID team will see PRN, if needed please page Grant Chavarria NP who will be returning Monday10/31/16 . . . Problems: Consultation Date/Type/Reason Admit Date/Time Oct 09, 2016 at 17:35 Initial Consult Date 10/11/16 Type of Consultation: ID Referring Provider: ARAMIS SY Exam/Review of Systems Vital Signs Vitals Vital Signs Date Time Temp Pulse Resp B/P Pulse Ox O2 Delivery O2 Flow Rate FiO2 10/30/16 19:41 98.7 76 20 147/69 94 Intake and Output 10/29/16 10/29/16 10/30/16 15:00 23:00 07:00 Intake Total 1325 ml 1090 ml Output Total 2250 ml 900 ml Balance -925 ml 190 ml Results Result Diagram: 10/30/16 0427 10/30/16 0427 Results 24 hrs Laboratory Tests Test 10/30/16 00:51 10/30/16 04:27 10/30/16 05:39 10/30/16 12:22 Bedside Glucose 114 119 115 White Blood Count 6.6 Red Blood Count 3.81 L Hemoglobin 10.2 L Hematocrit 32.9 L Mean Corpuscular Volume 86.4 Mean Corpuscular Hemoglobin 26.8 L Mean Corpuscular Hemoglobin Concent 31.0 L Red Cell Distribution Width 16.4 H Platelet Count 395 Mean Platelet Volume 8.8 Neutrophils % 57.4 Lymphocytes % 25.9 Monocytes % 10.9 Eosinophils % 4.2 Basophils % 1.1 Nucleated Red Blood Cells % 0.0 Neutrophils # 3.8 Lymphocytes # 1.7 Monocytes # 0.7 Eosinophils # 0.3 Basophils # 0.1 Nucleated Red Blood Cells # 0.0 Sodium Level 132 L Potassium Level 3.6 Chloride Level 106 Carbon Dioxide Level 23 Anion Gap 7 L Blood Urea Nitrogen 8 Creatinine 0.41 L Glucose Level 113 Calcium Level 9.0 Test 10/30/16 17:37 Bedside Glucose 115 Medications Medications Current Medications Miscellaneous Information 1 ea NOTE XX ; Start 10/09/16 at 23:45 Glucose (Glutose) 15 gm Q15M PRN PO DECREASED GLUCOSE; Start 10/09/16 at 23:45 Glucose (Glutose) 22.5 gm Q15M PRN PO DECREASED GLUCOSE; Start 10/09/16 at 23:45 Dextrose (D50w Syringe) 25 ml Q15M PRN IV DECREASED GLUCOSE; Start 10/09/16 at 23:45 Dextrose (D50w Syringe) 50 ml Q15M PRN IV DECREASED GLUCOSE; Start 10/09/16 at 23:45 Glucagon (Glucagen) 1 mg Q15M PRN IM DECREASED GLUCOSE; Start 10/09/16 at 23:45 Glucose (Glutose) 15 gm Q15M PRN BUCCAL DECREASED GLUCOSE; Start 10/09/16 at 23: 45 Metoclopramide HCl (Reglan) 10 mg Q6H PRN IV NAUSEA AND/OR VOMITING Last administered on 10/26/16 15:40; Admin Dose 10 MG; Start 10/10/16 at 00:00 Acetaminophen/ Hydrocodone Bitart ([place] (10)) 1 tab Q4H PRN PO PAIN Last administered on 10/12/16 13:23; Admin Dose 1 TAB; Start 10/11/16 at 06:00; Status Future Hold Diphenhydramine HCl (Benadryl) 25 mg Q6H PRN IV ITCHING Last administered on 05:47; Admin Dose 25 MG; Start 10/11/16 at 06:00 Diagnostic Test (Pha) (Accu-Chek) 1 ea 02 XX ; Start 10/12/16 at 02:00 Ondansetron HCl 4 mg 4 mg Q6H PRN IV NAUSEA AND/OR VOMITING Last administered on 10/26/16 12:31; Admin Dose 4 MG; Start 10/13/16 at 19:00 Potassium Chloride/Dextrose/ Sod Cl (D5-1/2ns + KCl 20 Meq) 1,000 ml @ 75 mls/ hr [id number] IV Last administered on 10/30/16 09:06; Admin Dose 75 MLS/HR; Start 10/13/16 at 18:58 Hydralazine HCl (Apresoline) 10 mg Q6H PRN IV SBP GREATER THAN 160 Last administered on 10/14/16 10:23; Admin Dose 10 MG; Start 10/14/16 at 10:30 Clonidine HCl (Catapres-Tts 1 Patch) 1 patch Q7D TRANSDERM Last administered on 10/28/16 13:03; Admin Dose 1 PATCH; Start 10/14/16 at 11:00 Pantoprazole (Protonix Iv) 40 mg DAILY@06 IV Last administered on 10/30/16 05: 33; Admin Dose 40 MG; Start 10/15/16 at 06:00 Phenol (Cepastat Lozenge) 1 lozenge Q4H PRN MT pain Last administered on 02:18; Admin Dose 1 LOZENGE; Start 10/16/16 at 14:00 Hydromorphone HCl 0.5 mg 0.5 mg Q4H PRN IV PAIN Last administered on 10/30/16 18:56; Admin Dose 0.5 MG; Start 10/22/16 at 14:00 Acetaminophen (Ofirmev 1000mg/ 100ml Iv) 100 ml @ 400 mls/hr Q6H PRN IVPB pain Last administered on 10/24/16 22:02; Admin Dose 400 MLS/HR; Start at 15:00 Insulin Aspart (Novolog Insulin Pen) NOVOLOG *MILD* ALGORI... Q6 SC Last administered on 10/28/16 17:57; Admin Dose 1 UNIT; Start 10/23/16 at 18:00 Duloxetine HCl (Cymbalta) 60 mg BID PO Last administered on 10/30/16 09:06; Admin Dose 60 MG; Start 10/28/16 at 10:30 Levothyroxine Sodium (Synthroid) 150 mcg DAILY@06 PO Last administered on 05:33; Admin Dose 150 MCG; Start 10/29/16 at 06:00 HESHAM HAJI NP Oct 30, 2016 20:16
[2016-10-31] MEDS: DIPHENHYDRAMINE 50 MG INJ IV PRN (00:40)
[2016-10-31] MEDS: ACCUCHECK AT 2AM (Patients on SS coverage) XX SCH (00:41)
[2016-10-31] MEDS: HYDROmorphONE 1 MG/ML SYG IV PRN ×5 (02:55→20:02)
[2016-10-31] MEDS: PANTOPRAZOLE 40 MG INJ IV SCH (05:49)
[2016-10-31] MEDS: LEVOTHYROXINE 150 MCG TAB PO SCH (05:49)
[2016-10-31] MEDS: INSULIN ASPART [NOVOLOG] 3 ML PEN SC SCH ×4 (05:51→17:57)
[2016-10-31 06:17] LABS: ADD SCAN DIFF NO
[2016-10-31 06:30] LABS: BASOPHIL # 0.1 10^3/ul (0.0-0.1); BASOPHILS % 1.5 % (0.0-2.0); EOSINOPHILS # 0.4 10^3/ul (0.0-0.5); EOSINOPHILS % 5.8 % (0.0-7.0); HEMATOCRIT 31.8 % (37.0-47.0); LYMPHOCYTES # 1.8 10^3/ul (0.8-2.9); LYMPHOCYTES % 29.2 % (15.0-51.0); MEAN CORPUSCULAR HGB CONC 31.4 g/dl (32.0-37.0); MEAN CORPUSCULAR VOLUME 85.7 fl (82.0-101.0); MEAN PLATELET VOLUME 8.2 fl (7.4-10.4); MONOCYTE # 0.7 10^3/ul (0.3-0.9); MONOCYTES % 10.9 % (0.0-11.0); NEUTROPHIL # 3.2 10^3/ul (1.6-7.5); NEUTROPHILS % 52.3 % (39.0-77.0); PLATELET COUNT 428 10^3/UL (140-415); RED BLOOD COUNT 3.71 10^6/ul (4.20-5.40); RED CELL DISTRIBUTION WIDTH 16.2 % (11.5-14.5); WHITE BLOOD COUNT 6.1 10^3/ul (4.8-10.8)
[2016-10-31 06:44] LABS: POTASSIUM 3.3 mmol/L (3.5-5.1)
[2016-10-31 06:46] LABS: CREATININE 0.5 mg/dl (0.44-1.00)
[2016-10-31 06:47] LABS: CALCIUM 8.8 mg/dl (8.4-10.2)
--- NOTE | 2016-10-31 07:07 | PN ---
DATE: 10/30/2016 SUBJECTIVE: Complains of abdominal pain. No nausea, no vomiting. Appetite is poor. No more vagin al bleeding per patient. OBJECTIVE: VITAL SIGNS: 97.3, 74, 20, blood pressure 123/66, saturation 94% on room air. LABORATORY DATA: WBC 6600 with 57% neutrophils. Hemoglobin is 10.2, hematocrit 32.9, platelet coun t 395. Chemistry: Sodium, potassium normal. BUN and creatinine normal. ABDOMEN: Slightly distended. Colostomy bag has liquid yellowish stool in it. ASSESSMENT AND PLAN: Status post transverse loop colostomy because of diverticulitis and diverticul ar abscesses and colovaginal fistula. The patient is not eating that much and still she has poor ap petite. Otherwise recently, she had an episode of bleeding, which has stopped by now. Endoscopy an d colonoscopy has been done, which has not showed that much of a problem. ____ distention and abdom inal pain ____ CT scan of the abdomen and pelvis with oral contrast. Dictated By: TICO PUCKETT MD PS/NTS Conf#: [id number] DID#: [id number] CC: NOAH HAMILTON MD;*EndCC*
--- NOTE | 2016-10-31 07:40 | PN ---
DATE: 10/29/2016 Post exploratory laparotomy. Placement ____transverse colon colostomy with diversion of fecal strea m. SUBJECTIVE: Feels better today. Bird was removed yesterday. The patient has urinated without any problem. OBJECTIVE: VITAL SIGNS: 98.2, 73, 18, 130/62 blood pressure, saturation 95% on room air. LABORATORIES: Sodium, potassium, BUN, creatinine normal. WBC 8100 with 62% segmented, hemoglobin 1 0.7, ABDOMEN: Soft. Colostomy ____. The dressing ____wound is much better. No abscess. EXTREMITIES: No calf tenderness. No bleeding. ____ ASSESSMENT AND PLAN: 1. Status post laparotomy, placement of diverting loop colostomy. 2. Status post rectal bleeding before operation probably from diverticulosis, ____fistula. PLAN: Continue current care. PT to continue ____ the patient. If the patient tolerates a regular diet, probably can be discharged. Planning made for next week. Dictated By: TICO GUADARRAMA/ELINA Conf#: [id number] DID#: [id number]
[2016-10-31 07:42] VITALS: BP 116/58; RESP 20
[2016-10-31] MEDS: DULOXETINE 30 MG CAP DR PO SCH ×2 (09:21→20:03)
[2016-10-31] MEDS: D5W-0.45 NACL + KCL 20 MEQ 1,000 ML IV SCH (11:40)
--- NOTE | 2016-10-31 12:31 | PN ---
Date/Time of Note Date/Time of Note DATE: 10/31/16 TIME: 12:29 Assessment/Plan VTE Prophylaxis VTE Prophylaxis Intervention: SCD's Lines/Catheters IV Catheter Type (from Nrsg): Central Line Central line still needed: Yes (IV abx, IV fluids ) Urinary Cath still in place: No (DISCONTINUED TODAY.) Assessment/Plan Assessment/Plan 1. Acute diverticulitis with perforation causing diverticular abscess status post exploratory laparotomy and placement of diverting transverse colostomy for diversion of fecal stream. The patient also has colovesical fistula, keep jacobs catheter in IV abx zosyn,ID following Plan for CT abdomen + pelvis with oral contrast 2. Possible GIB-resolved -EGD shows Erosive esophagitis and Atopic gastropathy, [place] is nl 3. Hypothyroidism Continue Rx 4. Weakness and numbness of the left lower extremity-stable 5. Diabetes-currently stable Continue sliding-scale 6. Ileus 7. 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 -Hospital Admitting Clerk consult Prophylaxis: SCDs d/w pt- will need SNF placement on discharge Subjective 24 Hr Interval Summary Free Text/Dictation C/o abdominal pain with Full meal, plan for CT abdomen+ pelvis with oral contrast today Exam/Review of Systems Vital Signs Vitals Vital Signs Date Time Temp Pulse Resp B/P Pulse Ox O2 Delivery O2 Flow Rate FiO2 10/31/16 07:42 98.2 70 20 116/58 94 Intake and Output 10/30/16 10/30/16 10/31/16 15:00 23:00 07:00 Intake Total 150 ml 2200 ml 740 ml Output Total 1500 ml 650 ml Balance 150 ml 700 ml 90 ml Exam Constitutional: alert Respiratory: clear to auscultation Cardiovascular: regular rate and rhythm Gastrointestinal: soft, No distended Musculoskeletal: nl extremities to inspection Results Result Diagram: 10/31/16 0546 10/31/16 0500 Results 24 hrs Laboratory Tests Test 10/30/16 17:37 10/31/16 00:30 10/31/16 05:00 10/31/16 05:46 Bedside Glucose 115 112 Sodium Level 137 Potassium Level 3.3 L Chloride Level 105 Carbon Dioxide Level 24 Anion Gap 11 Blood Urea Nitrogen 6 L Creatinine 0.50 Glucose Level 103 Calcium Level 8.8 White Blood Count 6.1 Red Blood Count 3.71 L Hemoglobin 10.0 L Hematocrit 31.8 L Mean Corpuscular Volume 85.7 Mean Corpuscular Hemoglobin 27.0 L Mean Corpuscular Hemoglobin Concent 31.4 L Red Cell Distribution Width 16.2 H Platelet Count 428 H Mean Platelet Volume 8.2 Neutrophils % 52.3 Lymphocytes % 29.2 Monocytes % 10.9 Eosinophils % 5.8 Basophils % 1.5 Nucleated Red Blood Cells % 0.0 Neutrophils # 3.2 Lymphocytes # 1.8 Monocytes # 0.7 Eosinophils # 0.4 Basophils # 0.1 Nucleated Red Blood Cells # 0.0 Test 10/31/16 05:48 10/31/16 11:56 Bedside Glucose 102 127 Medications Medications Current Medications Miscellaneous Information 1 ea NOTE XX ; Start 10/09/16 at 23:45 Glucose (Glutose) 15 gm Q15M PRN PO DECREASED GLUCOSE; Start 10/09/16 at 23:45 Glucose (Glutose) 22.5 gm Q15M PRN PO DECREASED GLUCOSE; Start 10/09/16 at 23:45 Dextrose (D50w Syringe) 25 ml Q15M PRN IV DECREASED GLUCOSE; Start 10/09/16 at 23:45 Dextrose (D50w Syringe) 50 ml Q15M PRN IV DECREASED GLUCOSE; Start 10/09/16 at 23:45 Glucagon (Glucagen) 1 mg Q15M PRN IM DECREASED GLUCOSE; Start 10/09/16 at 23:45 Glucose (Glutose) 15 gm Q15M PRN BUCCAL DECREASED GLUCOSE; Start 10/09/16 at 23: 45 Metoclopramide HCl (Reglan) 10 mg Q6H PRN IV NAUSEA AND/OR VOMITING Last administered on 10/26/16 15:40; Admin Dose 10 MG; Start 10/10/16 at 00:00 Acetaminophen/ Hydrocodone Bitart ([place] (10/325)) 1 tab Q4H PRN PO PAIN Last administered on 10/12/16 13:23; Admin Dose 1 TAB; Start 10/11/16 at 06:00; Status Future Hold Diphenhydramine HCl (Benadryl) 25 mg Q6H PRN IV ITCHING Last administered on 00:40; Admin Dose 25 MG; Start 10/11/16 at 06:00 Diagnostic Test (Pha) (Accu-Chek) 1 ea 02 XX ; Start 10/12/16 at 02:00 Ondansetron HCl 4 mg 4 mg Q6H PRN IV NAUSEA AND/OR VOMITING Last administered on 10/26/16 12:31; Admin Dose 4 MG; Start 10/13/16 at 19:00 Potassium Chloride/Dextrose/ Sod Cl (D5-1/2ns + KCl 20 Meq) 1,000 ml @ 75 mls/ hr [id number] IV Last administered on 10/31/16 11:40; Admin Dose 75 MLS/HR; Start 10/13/16 at 18:58 Hydralazine HCl (Apresoline) 10 mg Q6H PRN IV SBP GREATER THAN 160 Last administered on 10/14/16 10:23; Admin Dose 10 MG; Start 10/14/16 at 10:30 Clonidine HCl (Catapres-Tts 1 Patch) 1 patch Q7D TRANSDERM Last administered on 10/28/16 13:03; Admin Dose 1 PATCH; Start 10/14/16 at 11:00 Pantoprazole (Protonix Iv) 40 mg DAILY@06 IV Last administered on 10/31/16 05: 49; Admin Dose 40 MG; Start 10/15/16 at 06:00 Phenol (Cepastat Lozenge) 1 lozenge Q4H PRN MT pain Last administered on 02:18; Admin Dose 1 LOZENGE; Start 10/16/16 at 14:00 Hydromorphone HCl 0.5 mg 0.5 mg Q4H PRN IV PAIN Last administered on 10/31/16 11:40; Admin Dose 0.5 MG; Start 10/22/16 at 14:00 Acetaminophen (Ofirmev 1000mg/ 100ml Iv) 100 ml @ 400 mls/hr Q6H PRN IVPB pain Last administered on 10/24/16 22:02; Admin Dose 400 MLS/HR; Start at 15:00 Insulin Aspart (Novolog Insulin Pen) NOVOLOG *MILD* ALGORI... Q6 SC Last administered on 10/28/16 17:57; Admin Dose 1 UNIT; Start 10/23/16 at 18:00 Duloxetine HCl (Cymbalta) 60 mg BID PO Last administered on 10/31/16 09:21; Admin Dose 60 MG; Start 10/28/16 at 10:30 Levothyroxine Sodium (Synthroid) 150 mcg DAILY@06 PO Last administered on t 05:49; Admin Dose 150 MCG; Start 10/29/16 at 06:00 UGO BRYANT MD October 31, 2016 12:31
[2016-10-31] MEDS ORDERED: POTASSIUM CHLORIDE 20 MEQ in SOD CHLORIDE 0.9% 100 ML IVPB ONE (14:00)
[2016-10-31] MEDS ORDERED: IODIXANOL LOCM 100 ML BTL ONE ×2 (14:31→15:01)
[2016-10-31] MEDS ORDERED: SOD CHLORIDE 0.9% 100 ML ONE ×2 (14:31→15:01)
--- NOTE | 2016-10-31 15:50 | PN ---
Date/Time of Note Date/Time of Note DATE: 10/31/16 TIME: 15:47 Assessment/Plan VTE Prophylaxis VTE Prophylaxis Intervention: SCD's Lines/Catheters IV Catheter Type (from Nrs): Central Line Central line still needed: Yes Urinary Cath still in place: No (DISCONTINUED TODAY.) Assessment/Plan Assessment/Plan Abdominal pain EGD 10/25/2016 * Erosive esophagitis. * Moderate-sized hiatal hernia. * Atopic gastropathy. Gastric Biopsies: Mild superficial chronic gastritis with extensive intestinal metaplasia. negative for Helicobacter pylori organisms No malignancy or dysplasia is identified. Vaginal Bleeding improved Sigmoid diverticulitis with abscess controlled Colovesical fistula, * Exploratory laparotomy,incision and drainage,transverse loop colostomy Hyperlipidemia Major depression Diabetes mellitus Plan * Continue PPI * continue present management * Further recommendations depend on clinical course * Awaiting CT abdomen results Subjective 24 Hr Interval Summary Free Text/Dictation * Course reviewed with RN * Patient seen and examined * Complains of abdominal pain * Awaiting CT abdomen and pelvis results Exam/Review of Systems Vital Signs Vitals Vital Signs Date Time Temp Pulse Resp B/P Pulse Ox O2 Delivery O2 Flow Rate FiO2 10/31/16 07:42 98.2 70 20 116/58 94 Intake and Output 10/30/16 10/30/16 10/31/16 15:00 23:00 07:00 Intake Total 150 ml 2200 ml 740 ml Output Total 1500 ml 650 ml Balance 150 ml 700 ml 90 ml Exam Constitutional: alert, frail Neck: non-tender, supple Respiratory: clear to auscultation, diminished breath sounds, normal air movement Cardiovascular: nl pulses, regular rate and rhythm Gastrointestinal: bowel sounds, distended, non-tender, other (colostomy), soft Musculoskeletal: nl extremities to inspection Extremities: normal pulses Neurological: nl speech Results Result Diagram: 10/31/16 0546 10/31/16 0500 Results 24 hrs Laboratory Tests Test 10/30/16 17:37 10/31/16 00:30 10/31/16 05:00 10/31/16 05:46 Bedside Glucose 115 112 Sodium Level 137 Potassium Level 3.3 L Chloride Level 105 Carbon Dioxide Level 24 Anion Gap 11 Blood Urea Nitrogen 6 L Creatinine 0.50 Glucose Level 103 Calcium Level 8.8 White Blood Count 6.1 Red Blood Count 3.71 L Hemoglobin 10.0 L Hematocrit 31.8 L Mean Corpuscular Volume 85.7 Mean Corpuscular Hemoglobin 27.0 L Mean Corpuscular Hemoglobin Concent 31.4 L Red Cell Distribution Width 16.2 H Platelet Count 428 H Mean Platelet Volume 8.2 Neutrophils % 52.3 Lymphocytes % 29.2 Monocytes % 10.9 Eosinophils % 5.8 Basophils % 1.5 Nucleated Red Blood Cells % 0.0 Neutrophils # 3.2 Lymphocytes # 1.8 Monocytes # 0.7 Eosinophils # 0.4 Basophils # 0.1 Nucleated Red Blood Cells # 0.0 Test 10/31/16 05:48 10/31/16 11:56 Bedside Glucose 102 127 Medications Medications Current Medications Miscellaneous Information 1 ea NOTE XX ; Start 10/09/16 at 23:45 Glucose (Glutose) 15 gm Q15M PRN PO DECREASED GLUCOSE; Start 10/09/16 at 23:45 Glucose (Glutose) 22.5 gm Q15M PRN PO DECREASED GLUCOSE; Start 10/09/16 at 23:45 Dextrose (D50w Syringe) 25 ml Q15M PRN IV DECREASED GLUCOSE; Start 10/09/16 at 23:45 Dextrose (D50w Syringe) 50 ml Q15M PRN IV DECREASED GLUCOSE; Start 10/09/16 at 23:45 Glucagon (Glucagen) 1 mg Q15M PRN IM DECREASED GLUCOSE; Start 10/09/16 at 23:45 Glucose (Glutose) 15 gm Q15M PRN BUCCAL DECREASED GLUCOSE; Start 10/09/16 at 23: 45 Metoclopramide HCl (Reglan) 10 mg Q6H PRN IV NAUSEA AND/OR VOMITING Last administered on 10/26/16 15:40; Admin Dose 10 MG; Start 10/10/16 at 00:00 Acetaminophen/ Hydrocodone Bitart ([place] (10/325)) 1 tab Q4H PRN PO PAIN Last administered on 10/12/16 13:23; Admin Dose 1 TAB; Start 10/11/16 at 06:00; Status Future Hold Diphenhydramine HCl (Benadryl) 25 mg Q6H PRN IV ITCHING Last administered on 00:40; Admin Dose 25 MG; Start 10/11/16 at 06:00 Diagnostic Test (Pha) (Accu-Chek) 1 ea 02 XX ; Start 10/12/16 at 02:00 Ondansetron HCl 4 mg 4 mg Q6H PRN IV NAUSEA AND/OR VOMITING Last administered on 10/26/16 12:31; Admin Dose 4 MG; Start 10/13/16 at 19:00 Potassium Chloride/Dextrose/ Sod Cl (D5-1/2ns + KCl 20 Meq) 1,000 ml @ 75 mls/ hr [id number] IV Last administered on 10/31/16 11:40; Admin Dose 75 MLS/HR; Start 10/13/16 at 18:58 Hydralazine HCl (Apresoline) 10 mg Q6H PRN IV SBP GREATER THAN 160 Last administered on 10/14/16 10:23; Admin Dose 10 MG; Start 10/14/16 at 10:30 Clonidine HCl (Catapres-Tts 1 Patch) 1 patch Q7D TRANSDERM Last administered on 10/28/16 13:03; Admin Dose 1 PATCH; Start 10/14/16 at 11:00 Pantoprazole (Protonix Iv) 40 mg DAILY@06 IV Last administered on 10/31/16 05: 49; Admin Dose 40 MG; Start 10/15/16 at 06:00 Phenol (Cepastat Lozenge) 1 lozenge Q4H PRN MT pain Last administered on 02:18; Admin Dose 1 LOZENGE; Start 10/16/16 at 14:00 Hydromorphone HCl 0.5 mg 0.5 mg Q4H PRN IV PAIN Last administered on 10/31/16 11:40; Admin Dose 0.5 MG; Start 10/22/16 at 14:00 Acetaminophen (Ofirmev 1000mg/ 100ml Iv) 100 ml @ 400 mls/hr Q6H PRN IVPB pain Last administered on 10/24/16 22:02; Admin Dose 400 MLS/HR; Start at 15:00 Insulin Aspart (Novolog Insulin Pen) NOVOLOG *MILD* ALGORI... Q6 SC Last administered on 10/28/16 17:57; Admin Dose 1 UNIT; Start 10/23/16 at 18:00 Duloxetine HCl (Cymbalta) 60 mg BID PO Last administered on 10/31/16 09:21; Admin Dose 60 MG; Start 10/28/16 at 10:30 Levothyroxine Sodium 150 mcg 150 mcg DAILY@06 PO Last administered on 10/31/16t 05:49; Admin Dose 150 MCG; Start 10/29/16 at 06:00 Potassium Chloride/Sodium Chloride (KCl/NS) 110 ml @ 55 mls/hr ONCE ONCE IVPB ; Start 10/31/16 at 14:00; Stop 10/31/16 at 15:59 BARBARA WHALEN MD October 31, 2016 15:50
[2016-10-31 19:41] VITALS: BP 151/73; RESP 18
[2016-11-01] MEDS: HYDROmorphONE 1 MG/ML SYG IV PRN ×6 (00:01→21:47)
[2016-11-01] MEDS: ACCUCHECK AT 2AM (Patients on SS coverage) XX SCH (02:00)
[2016-11-01] MEDS: D5W-0.45 NACL + KCL 20 MEQ 1,000 ML IV SCH ×3 (04:08→17:23)
[2016-11-01 05:42] LABS: ADD SCAN DIFF NO
[2016-11-01] MEDS: PANTOPRAZOLE 40 MG INJ IV SCH (05:46)
[2016-11-01] MEDS: LEVOTHYROXINE 150 MCG TAB PO SCH (05:46)
[2016-11-01] MEDS: INSULIN ASPART [NOVOLOG] 3 ML PEN SC SCH ×4 (05:47→17:22)
[2016-11-01 05:49] LABS: BASOPHIL # 0.1 10^3/ul (0.0-0.1); BASOPHILS % 1.3 % (0.0-2.0); EOSINOPHILS # 0.3 10^3/ul (0.0-0.5); EOSINOPHILS % 3.5 % (0.0-7.0); HEMATOCRIT 32.9 % (37.0-47.0); HEMOGLOBIN 10.5 g/dl (12.0-16.0); LYMPHOCYTES # 1.7 10^3/ul (0.8-2.9); LYMPHOCYTES % 19.8 % (15.0-51.0); MEAN CORPUSCULAR HEMOGLOBIN 27.2 pg (29.0-33.0); MEAN CORPUSCULAR HGB CONC 31.9 g/dl (32.0-37.0); MEAN CORPUSCULAR VOLUME 85.2 fl (82.0-101.0); MEAN PLATELET VOLUME 8.2 fl (7.4-10.4); MONOCYTE # 0.8 10^3/ul (0.3-0.9); MONOCYTES % 9.6 % (0.0-11.0); NEUTROPHIL # 5.6 10^3/ul (1.6-7.5); NEUTROPHILS % 65.1 % (39.0-77.0); PLATELET COUNT 382 10^3/UL (140-415); RED BLOOD COUNT 3.86 10^6/ul (4.20-5.40); RED CELL DISTRIBUTION WIDTH 16.5 % (11.5-14.5); WHITE BLOOD COUNT 8.6 10^3/ul (4.8-10.8)
[2016-11-01 06:02] LABS: INR 1.21; PROTIME 15.4 Sec (12.2-14.2); PT RATIO 1.2
[2016-11-01 06:03] LABS: PARTIAL THROMBOPLASTIN TIME 34.6 Sec (25.0-35.0)
[2016-11-01 06:11] LABS: CALCIUM 9.2 mg/dl (8.4-10.2); CREATININE 0.46 mg/dl (0.44-1.00); POTASSIUM 3.6 mmol/L (3.5-5.1)
[2016-11-01 07:34] VITALS: BP 117/59; RESP 20
[2016-11-01] MEDS: DULOXETINE 30 MG CAP DR PO SCH ×2 (08:46→21:44)
--- NOTE | 2016-11-01 11:20 | RADRPT ---
PROCEDURE: CT Abdomen and Pelvis with contrast. CLINICAL INDICATION: Abdominal pain and distension status post diverting colostomy for diverticulo sis. History of pelvic abscess and rectovaginal fistula. TECHNIQUE: CT scan of the abdomen and pelvis with contrast was performed on a multi-detector high- resolution CT scanner. The patient was scanned following the uncomplicated intravenous administrati on of 100 cc of Visipaque 320. Coronal and sagittal reformatted images were obtained from the axial source images. Images were reviewed on a high-resolution PACS workstation. The total exam CTDI equa ls 16.02 mGy and the total exam DLP equals 963 mGy-cm. One or more of the following dose reduction techniques were used: Automated exposure control. Adjustment of the mA and/or kV according to patient size. Use of iterative reconstruction technique. COMPARISON: None. FINDINGS: CT abdomen: The lung bases are remarkable for pleuroparenchymal scarring and subsegmental atelectasis. The hear t size is mildly enlarged without pericardial thickening or effusion. There is a central line termin ating in the high right atrium. There is moderate hiatal hernia. The liver is normal in size and density without focal mass or intrahepatic biliary dilatation. The spleen is normal in size and homogeneous in density. The stomach is partially collapsed, but is lenora ssly unremarkable. The pancreas as visualized is normal. The gallbladder is surgically absent. Th ere is no intrahepatic biliary ductal dilatation. Mild prominence of the common bile duct is noted. The adrenal glands are symmetric and normal. The kidneys are symmetrically unremarkable as well. No renal calculus or obstructive uropathy or mass lesion is seen. There is approximately 1.6 cm cor tical cyst in medial upper pole left kidney. The aorta is of normal caliber. Aortic vascular calcifications are present. There is no retroperit jade lymphadenopathy. The rajesh hepatis region is clear. There is a diverting transverse colostomy in the mid abdomen left of the midline. CT pelvis: There is moderate diverticulosis of the sigmoid colon with abnormal thickening and surrounding infla mmatory changes in keeping with diverticulitis. There are a few small peridiverticular abscess kierra ures up to 1 cm in the left zoey pelvis. The patient is status post hysterectomy. There is probabl e fistulous tract from the inflamed sigmoid colon towards the left aspect of the vaginal cuff and le ft posterolateral aspect of the urinary bladder. There is air in the urinary bladder which could be related to recent instrumentation or fistula. The small bowel loops situated within the pelvis are unremarkable. Multilevel advanced degenerative changes are seen in the lower thoracic and lumbar spine. Age indeterminate moderate compression fra ctures are seen at T7, T11, and L3. Mild compression fractures are seen at T12, and L2. There are p ostsurgical changes of posterior decompression at L3-L4 and L4-L5. IMPRESSION: 1. Status post transverse colon diverting colostomy. No evidence of bowel obstruction. No evidence of fluid collection in the surgical field. 2. Diverticulosis of the sigmoid colon with surrounding inflammatory changes and small peridivertic ular abscess. 3. Probable fistulous tract in between the inflamed sigmoid colon, vaginal cuff and left posterolat eral urinary bladder. 4. Moderate hiatal hernia. 5. Status post cholecystectomy. No intrahepatic biliary ductal dilatation. Mild prominence of the CBD. Correlate with labs. 6. Aortoiliac atherosclerosis. 7. Cardiomegaly. 8. Multiple age indeterminate compression fractures in the lower thoracic and lumbar spine. RPTAT: BB .Torie Ramon MD, MD Date Time Electronically viewed and signed by .Torie Ramon MD, on 11/01/2016 11:20 .O/
--- NOTE | 2016-11-01 15:08 | PN ---
Date/Time of Note Date/Time of Note DATE: 11/01/16 TIME: 15:01 Assessment/Plan VTE Prophylaxis VTE Prophylaxis Intervention: SCD's Lines/Catheters IV Catheter Type (from Nrs): Central Line Central line still needed: Yes Urinary Cath still in place: No (DISCONTINUED TODAY.) Assessment/Plan Assessment/Plan Abdominal pain improved CT abdomen/Pelvis Status post transverse colon diverting colostomy. No evidence of bowel obstruction. No evidence of fluid collection in the surgical field. . Diverticulosis of the sigmoid colon with surrounding inflammatory changes and small peridiverticular abscess. Probable fistulous tract in between the inflamed sigmoid colon, vaginal cuff and left posterolateral urinary bladder. Moderate hiatal hernia. Status post cholecystectomy. No intrahepatic biliary ductal dilatation. Mild prominence of the CBD. Correlate with labs. EGD 10/25/2016 * Erosive esophagitis. * Moderate-sized hiatal hernia. * Atopic gastropathy. Gastric Biopsies: Mild superficial chronic gastritis with extensive intestinal metaplasia. negative for Helicobacter pylori organisms No malignancy or dysplasia is identified. Vaginal Bleeding improved Sigmoid diverticulitis with abscess controlled Colovesical fistula, * Exploratory laparotomy,incision and drainage,transverse loop colostomy Hyperlipidemia Major depression Diabetes mellitus Plan * Continue PPI * continue present management * Further recommendations depend on clinical course Subjective 24 Hr Interval Summary Free Text/Dictation * Course reviewed with RN * Patient seen and examined * complains of on and off abdominal pain * CT abdomen/pelvis 10/31/16 * Status post transverse colon diverting colostomy. No evidence of bowel obstruction. No evidence of fluid collection in the surgical field. Diverticulosis of the sigmoid colon with surrounding inflammatory changes and small peridiverticular abscess. Probable fistulous tract in between the inflamed sigmoid colon, vaginal cuff and left posterolateral urinary bladder. Moderate hiatal hernia. Status post cholecystectomy. No intrahepatic biliary ductal dilatation. Mild prominence of the CBD. Correlate with labs. Exam/Review of Systems Vital Signs Vitals Vital Signs Date Time Temp Pulse Resp B/P Pulse Ox O2 Delivery O2 Flow Rate FiO2 11/01/16 07:34 98.7 80 20 117/59 95 Intake and Output 10/31/16 10/31/16 11/01/16 15:00 23:00 07:00 Intake Total 500 ml 1320 ml 1250 ml Output Total 3100 ml Balance 500 ml -1780 ml 1250 ml Exam Constitutional: alert, oriented Neck: non-tender, supple Respiratory: clear to auscultation, normal air movement Cardiovascular: nl pulses, regular rate and rhythm Gastrointestinal: bowel sounds, non-tender, other (colostomy ), soft Skin: nl turgor, rash or lesions Lymph: nl lymph nodes Results Result Diagram: 11/01/16 0520 11/01/16 0520 Results 24 hrs Laboratory Tests Test 10/31/16 17:23 11/01/16 00:00 11/01/16 05:20 11/01/16 05:45 Bedside Glucose 107 121 121 White Blood Count 8.6 # Red Blood Count 3.86 L Hemoglobin 10.5 L Hematocrit 32.9 L Mean Corpuscular Volume 85.2 Mean Corpuscular Hemoglobin 27.2 L Mean Corpuscular Hemoglobin Concent 31.9 L Red Cell Distribution Width 16.5 H Platelet Count 382 Mean Platelet Volume 8.2 Neutrophils % 65.1 Lymphocytes % 19.8 Monocytes % 9.6 Eosinophils % 3.5 Basophils % 1.3 Nucleated Red Blood Cells % 0.0 Neutrophils # 5.6 Lymphocytes # 1.7 Monocytes # 0.8 Eosinophils # 0.3 Basophils # 0.1 Nucleated Red Blood Cells # 0.0 Prothrombin Time 15.4 H Prothrombin Time Ratio 1.2 INR International Normalized Ratio 1.21 Activated Partial Thromboplast Time 34.6 Sodium Level 135 Potassium Level 3.6 Chloride Level 105 Carbon Dioxide Level 25 Anion Gap 9 Blood Urea Nitrogen 4 L Creatinine 0.46 Glucose Level 129 Calcium Level 9.2 Magnesium Level 1.0 L Test 11/01/16 12:09 Bedside Glucose 147 Medications Medications Current Medications Miscellaneous Information 1 ea NOTE XX ; Start 10/09/16 at 23:45 Glucose (Glutose) 15 gm Q15M PRN PO DECREASED GLUCOSE; Start 10/09/16 at 23:45 Glucose (Glutose) 22.5 gm Q15M PRN PO DECREASED GLUCOSE; Start 10/09/16 at 23:45 Dextrose (D50w Syringe) 25 ml Q15M PRN IV DECREASED GLUCOSE; Start 10/09/16 at 23:45 Dextrose (D50w Syringe) 50 ml Q15M PRN IV DECREASED GLUCOSE; Start 10/09/16 at 23:45 Glucagon (Glucagen) 1 mg Q15M PRN IM DECREASED GLUCOSE; Start 10/09/16 at 23:45 Glucose (Glutose) 15 gm Q15M PRN BUCCAL DECREASED GLUCOSE; Start 10/09/16 at 23: 45 Metoclopramide HCl (Reglan) 10 mg Q6H PRN IV NAUSEA AND/OR VOMITING Last administered on 10/26/16 15:40; Admin Dose 10 MG; Start 10/10/16 at 00:00 Acetaminophen/ Hydrocodone Bitart ([place] (10/)) 1 tab Q4H PRN PO PAIN Last administered on 10/12/16 13:23; Admin Dose 1 TAB; Start 10/11/16 at 06:00; Status Future Hold Diphenhydramine HCl (Benadryl) 25 mg Q6H PRN IV ITCHING Last administered on 00:40; Admin Dose 25 MG; Start 10/11/16 at 06:00 Diagnostic Test (Pha) (Accu-Chek) 1 ea 02 XX ; Start 10/12/16 at 02:00 Ondansetron HCl 4 mg 4 mg Q6H PRN IV NAUSEA AND/OR VOMITING Last administered on 10/26/16 12:31; Admin Dose 4 MG; Start 10/13/16 at 19:00 Potassium Chloride/Dextrose/ Sod Cl (D5-1/2ns + KCl 20 Meq) 1,000 ml @ 75 mls/ hr [id number] IV Last administered on 11/01/16 04:08; Admin Dose 75 MLS/HR; Start 10/13/16 at 18:58 Hydralazine HCl (Apresoline) 10 mg Q6H PRN IV SBP GREATER THAN 160 Last administered on 10/14/16 10:23; Admin Dose 10 MG; Start 10/14/16 at 10:30 Clonidine HCl (Catapres-Tts 1 Patch) 1 patch Q7D TRANSDERM Last administered on 10/28/16 13:03; Admin Dose 1 PATCH; Start 10/14/16 at 11:00 Pantoprazole (Protonix Iv) 40 mg DAILY@06 IV Last administered on 11/01/16 05: 46; Admin Dose 40 MG; Start 10/15/16 at 06:00 Phenol (Cepastat Lozenge) 1 lozenge Q4H PRN MT pain Last administered on 02:18; Admin Dose 1 LOZENGE; Start 10/16/16 at 14:00 Hydromorphone HCl 0.5 mg 0.5 mg Q4H PRN IV PAIN Last administered on 11/01/16 13:09; Admin Dose 0.5 MG; Start 10/22/16 at 14:00 Acetaminophen (Ofirmev 1000mg/ 100ml Iv) 100 ml @ 400 mls/hr Q6H PRN IVPB pain Last administered on 10/24/16 22:02; Admin Dose 400 MLS/HR; Start at 15:00 Insulin Aspart (Novolog Insulin Pen) NOVOLOG *MILD* ALGORI... Q6 SC Last administered on 11/01/16 12:14; Admin Dose 1 UNIT; Start 10/23/16 at 18:00 Duloxetine HCl (Cymbalta) 60 mg BID PO Last administered on 11/01/16 08:46; Admin Dose 60 MG; Start 10/28/16 at 10:30 Levothyroxine Sodium (Synthroid) 150 mcg DAILY@06 PO Last administered on 05:46; Admin Dose 150 MCG; Start 10/29/16 at 06:00 BARBARA WHALEN MD November 01, 2016 15:08
--- NOTE | 2016-11-01 18:25 | PN ---
DATE: 11/01/2016 Status post exploratory laparotomy, placement of transverse loop colostomy because of diverticulitis and diverticular abscesses and rectovaginal fistula, possible rectovesical fistula. SUBJECTIVE: States that has some pain still in the back and also in the lower part of the left side of the abdomen, but this is controlled with medication. No nausea, no vomiting, no appetite. Last night, the patient had a CT scan of the abdomen and pelvis repeated and I am going to talk about it later on in the progress note. OBJECTIVE GENERAL: Awake, alert, lying down in bed. She looks comfortable. VITAL SIGNS: Temperature 98.7, pulse rate 80, respirations 20, blood pressure 107/59, saturation 95 % room air. LABORATORIES: WBC 8600 with 65% neutrophils. Platelet count 382. Hemoglobin 10.4 and hematocrit 3 2.9. Urine culture ____ is negative. ABDOMEN: Soft. Mild tenderness on the left side on deep pressure. Colostomy functioning light ye llowish-whitish liquid. EXTREMITIES: No calf tenderness. ASSESSMENT AND PLAN: Patient is status post transverse loop colostomy for diverticulitis and divert icular abscesses. The patient does not have leukocytosis. Also, does not have any appetite. CT scan yesterday was done the pelvis and abdomen with IV and oral contrast. It shows multiple frac tures of the thoracic and lumbar spines as well as evidence of previous operation in lumbar spine, L3, L4 and L5. The CT scan of the pelvis shows that still there is some evidence of diverticulitis in the sigmoid colon and a small abscess maybe 1 cm. Remember that previously it was 3 cm x 3 cm, 2 of them. The stomach and small bowel and large bowel contour is within normal limits. Note the p atkatherine has been off antibiotics for 7 days, but x-ray mayo, CT scan shows there is still evidence of diverticulitis and some small abscess. So I think the patient probably needs to be on long-term an tibiotic treatment to completely eradicate diverticulitis and abscess in the pelvis. PLAN: I will talk to infectious disease people as soon as possible about this matter. Meanwhile, w lat[place] will ask the primary care physician and hospitalist to find a way to increase the patient's appeti te. Dictated By: TICO GUADARRAMA/ELINA Conf#: [id number] [facility]#: [id number]
--- NOTE | 2016-11-01 18:45 | PN ---
Date/Time of Note Date/Time of Note DATE: 11/01/16 TIME: 18:44 Assessment/Plan VTE Prophylaxis VTE Prophylaxis Intervention: SCD's Lines/Catheters IV Catheter Type (from Nrsg): Central Line Central line still needed: Yes (IV abx ) Urinary Cath still in place: No (DISCONTINUED TODAY.) Assessment/Plan Assessment/Plan 1. Acute diverticulitis with perforation causing diverticular abscess status post exploratory laparotomy and placement of diverting transverse colostomy for diversion of fecal stream. The patient also has colovesical fistula, keep jacobs catheter in IV abx zosyn,ID following Plan for CT abdomen + pelvis with oral contrast 2. Possible GIB-resolved -EGD shows Erosive esophagitis and Atopic gastropathy, [place] is nl 3. Hypothyroidism Continue Rx 4. Weakness and numbness of the left lower extremity-stable 5. Diabetes-currently stable Continue sliding-scale 6. Ileus 7. 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 -Quality Manager consult Prophylaxis: SCDs d/w pt- will need SNF placement on discharge Subjective 24 Hr Interval Summary Free Text/Dictation BP stable, CT showed fistula Exam/Review of Systems Vital Signs Vitals Vital Signs Date Time Temp Pulse Resp B/P Pulse Ox O2 Delivery O2 Flow Rate FiO2 11/01/16 07:34 98.7 80 20 117/59 95 Intake and Output 10/31/16 10/31/16 11/01/16 15:00 23:00 07:00 Intake Total 500 ml 1320 ml 1250 ml Output Total 3100 ml Balance 500 ml -1780 ml 1250 ml Exam Constitutional: alert Respiratory: clear to auscultation Cardiovascular: regular rate and rhythm Gastrointestinal: soft, No distended Musculoskeletal: nl extremities to inspection Results Result Diagram: 11/01/16 0511/01/16 0520 Results 24 hrs Laboratory Tests Test 11/01/16 00:00 11/01/16 05:20 11/01/16 05:45 11/01/16 12:09 Bedside Glucose 121 121 147 White Blood Count 8.6 # Red Blood Count 3.86 L Hemoglobin 10.5 L Hematocrit 32.9 L Mean Corpuscular Volume 85.2 Mean Corpuscular Hemoglobin 27.2 L Mean Corpuscular Hemoglobin Concent 31.9 L Red Cell Distribution Width 16.5 H Platelet Count 382 Mean Platelet Volume 8.2 Neutrophils % 65.1 Lymphocytes % 19.8 Monocytes % 9.6 Eosinophils % 3.5 Basophils % 1.3 Nucleated Red Blood Cells % 0.0 Neutrophils # 5.6 Lymphocytes # 1.7 Monocytes # 0.8 Eosinophils # 0.3 Basophils # 0.1 Nucleated Red Blood Cells # 0.0 Prothrombin Time 15.4 H Prothrombin Time Ratio 1.2 INR International Normalized Ratio 1.21 Activated Partial Thromboplast Time 34.6 Sodium Level 135 Potassium Level 3.6 Chloride Level 105 Carbon Dioxide Level 25 Anion Gap 9 Blood Urea Nitrogen 4 L Creatinine 0.46 Glucose Level 129 Calcium Level 9.2 Magnesium Level 1.0 L Test 11/01/16 17:19 Bedside Glucose 118 Medications Medications Current Medications Miscellaneous Information 1 ea NOTE XX ; Start 10/09/16 at 23:45 Glucose (Glutose) 15 gm Q15M PRN PO DECREASED GLUCOSE; Start 10/09/16 at 23:45 Glucose (Glutose) 22.5 gm Q15M PRN PO DECREASED GLUCOSE; Start 10/09/16 at 23:45 Dextrose (D50w Syringe) 25 ml Q15M PRN IV DECREASED GLUCOSE; Start 10/09/16 at 23:45 Dextrose (D50w Syringe) 50 ml Q15M PRN IV DECREASED GLUCOSE; Start 10/09/16 at 23:45 Glucagon (Glucagen) 1 mg Q15M PRN IM DECREASED GLUCOSE; Start 10/09/16 at 23:45 Glucose (Glutose) 15 gm Q15M PRN BUCCAL DECREASED GLUCOSE; Start 10/09/16 at 23: 45 Metoclopramide HCl (Reglan) 10 mg Q6H PRN IV NAUSEA AND/OR VOMITING Last administered on 10/26/16 15:40; Admin Dose 10 MG; Start 10/10/16 at 00:00 Acetaminophen/ Hydrocodone Bitart ([place] (10/325)) 1 tab Q4H PRN PO PAIN Last administered on 10/12/16 13:23; Admin Dose 1 TAB; Start 10/11/16 at 06:00; Status Future Hold Diphenhydramine HCl (Benadryl) 25 mg Q6H PRN IV ITCHING Last administered on 00:40; Admin Dose 25 MG; Start 10/11/16 at 06:00 Diagnostic Test (Pha) (Accu-Chek) 1 ea 02 XX ; Start 10/12/16 at 02:00 Ondansetron HCl 4 mg 4 mg Q6H PRN IV NAUSEA AND/OR VOMITING Last administered on 10/26/16 12:31; Admin Dose 4 MG; Start 10/13/16 at 19:00 Potassium Chloride/Dextrose/ Sod Cl (D5-1/2ns + KCl 20 Meq) 1,000 ml @ 75 mls/ hr [id number] IV Last administered on 11/01/16 17:23; Admin Dose 75 MLS/HR; Start 10/13/16 at 18:58 Hydralazine HCl (Apresoline) 10 mg Q6H PRN IV SBP GREATER THAN 160 Last administered on 10/14/16 10:23; Admin Dose 10 MG; Start 10/14/16 at 10:30 Clonidine HCl (Catapres-Tts 1 Patch) 1 patch Q7D TRANSDERM Last administered on 10/28/16 13:03; Admin Dose 1 PATCH; Start 10/14/16 at 11:00 Pantoprazole (Protonix Iv) 40 mg DAILY@06 IV Last administered on 11/01/16 05: 46; Admin Dose 40 MG; Start 10/15/16 at 06:00 Phenol (Cepastat Lozenge) 1 lozenge Q4H PRN MT pain Last administered on 02:18; Admin Dose 1 LOZENGE; Start 10/16/16 at 14:00 Hydromorphone HCl 0.5 mg 0.5 mg Q4H PRN IV PAIN Last administered on 11/01/16 17:24; Admin Dose 0.5 MG; Start 10/22/16 at 14:00 Acetaminophen (Ofirmev 1000mg/ 100ml Iv) 100 ml @ 400 mls/hr Q6H PRN IVPB pain Last administered on 10/24/16 22:02; Admin Dose 400 MLS/HR; Start at 15:00 Insulin Aspart (Novolog Insulin Pen) NOVOLOG *MILD* ALGORI... Q6 SC Last administered on 11/01/16 12:14; Admin Dose 1 UNIT; Start 10/23/16 at 18:00 Duloxetine HCl (Cymbalta) 60 mg BID PO Last administered on 11/01/16 08:46; Admin Dose 60 MG; Start 10/28/16 at 10:30 Levothyroxine Sodium (Synthroid) 150 mcg DAILY@06 PO Last administered on 05:46; Admin Dose 150 MCG; Start 10/29/16 at 06:00 UGO BRYANT MD November 01, 2016 18:45
[2016-11-01 19:52] VITALS: BP 129/60; RESP 18
[2016-11-02] MEDS: HYDROmorphONE 1 MG/ML SYG IV PRN ×6 (01:45→21:51)
[2016-11-02] MEDS: ACCUCHECK AT 2AM (Patients on SS coverage) XX SCH (01:50)
[2016-11-02] MEDS: INSULIN ASPART [NOVOLOG] 3 ML PEN SC SCH ×4 (06:00→18:00)
[2016-11-02] MEDS: LEVOTHYROXINE 150 MCG TAB PO SCH (06:04)
[2016-11-02] MEDS: PANTOPRAZOLE 40 MG INJ IV SCH (06:04)
[2016-11-02] MEDS: D5W-0.45 NACL + KCL 20 MEQ 1,000 ML IV SCH ×2 (06:07→20:28)
[2016-11-02 07:28] VITALS: BP 122/56; RESP 16
[2016-11-02] MEDS: DULOXETINE 30 MG CAP DR PO SCH ×2 (08:39→21:50)
[2016-11-02] MEDS ORDERED: ALTEPLASE (CATHFLO) 2 MG INJ CATHETER PRN (11:30)
[2016-11-02] MEDS ORDERED: ALTEPLASE (CATHFLO) 2 MG INJ CATHETER ONE (12:00)
[2016-11-02] MEDS ORDERED: LEVOFLOXACIN 500 MG TAB PO ONE (12:30)
--- NOTE | 2016-11-02 13:39 | PN ---
DATE: 11/02/2016 SUBJECTIVE: No acute changes overnight. The patient is alert, lying comfortably in bed. No fevers . Vital signs stable. No labs this morning. Urine cultures have been negative. PHYSICAL EXAMINATION: GENERAL: This is a fragile, elderly woman who is awake, in no distress. HEENT: Head atraumatic, normocephalic. Sclerae anicteric. Buccal mucosa dry. NECK: Supple. CHEST: Rise symmetrical. Breath sounds clear. HEART: S1, S2. ABDOMEN: Soft, bowel sounds present. EXTREMITIES: No cyanosis. ASSESSMENT: 1. Status post transverse loop colostomy for diverticulitis and diverticular abscess with CT of the abdomen and pelvis on 10/31/2016 revealed presence of sigmoid colon inflammatory changes and small peridiverticular abscess. 3. Colovaginal fistula. 4. Diabetes. 5. Hyperbilirubinemia. PLAN: As per discussion with Dr. Ballesteros, we will start patient on antibiotics with Levaquin and Fla gyl and keep her on antibiotics for at least 2 weeks. Dictated By: CARMEN WHEAT [employer] MANUFACTURING SUPERVISOR for [employer]ELINA Conf#: [id number] DID#: [id number]
[2016-11-02] MEDS: metroNIDAZOLE 500 MG TAB NGT SCH ×2 (13:43→21:49)
[2016-11-02] MEDS: LEVOFLOXACIN 500 MG TAB NGT SCH (13:44)
--- NOTE | 2016-11-02 15:25 | PN ---
Date/Time of Note Date/Time of Note DATE: 11/02/16 TIME: 15:22 Assessment/Plan VTE Prophylaxis VTE Prophylaxis Intervention: SCD's Lines/Catheters IV Catheter Type (from Nrsg): Central Line Central line still needed: Yes Assessment/Plan Assessment/Plan Abdominal pain improved CT abdomen/Pelvis Status post transverse colon diverting colostomy. No evidence of bowel obstruction. No evidence of fluid collection in the surgical field. . Diverticulosis of the sigmoid colon with surrounding inflammatory changes and small peridiverticular abscess. Probable fistulous tract in between the inflamed sigmoid colon, vaginal cuff and left posterolateral urinary bladder. Moderate hiatal hernia. Status post cholecystectomy. No intrahepatic biliary ductal dilatation. Mild prominence of the CBD. Correlate with labs. EGD 10/25/2016 * Erosive esophagitis. * Moderate-sized hiatal hernia. * Atopic gastropathy. Gastric Biopsies: Mild superficial chronic gastritis with extensive intestinal metaplasia. negative for Helicobacter pylori organisms No malignancy or dysplasia is identified. Vaginal Bleeding improved Sigmoid diverticulitis with abscess controlled Colovesical fistula, * Exploratory laparotomy,incision and drainage,transverse loop colostomy Hyperlipidemia Major depression Diabetes mellitus Plan * Continue PPI * continue present management Subjective 24 Hr Interval Summary Free Text/Dictation * Course reviewed with RN * Patient seen and examined * afebrile,no abdominal pain Exam/Review of Systems Vital Signs Vitals Vital Signs Date Time Temp Pulse Resp B/P Pulse Ox O2 Delivery O2 Flow Rate FiO2 11/02/16 07:28 98.4 78 16 122/56 91 Intake and Output 11/01/16 11/01/16 11/02/16 15:00 23:00 07:00 Intake Total 600 ml 1770 ml 1360 ml Output Total 1000 ml 1950 ml 650 ml Balance -400 ml -180 ml 710 ml Exam Constitutional: alert, frail, oriented Eyes: nl conjunctiva, nl sclera Neck: non-tender, supple Respiratory: clear to auscultation, normal air movement Cardiovascular: nl pulses, regular rate and rhythm Gastrointestinal: bowel sounds, non-tender, other (colostomy), soft Musculoskeletal: nl extremities to inspection, nl gait and stance Results Result Diagram: 11/01/16 0520 11/01/16 0520 Results 24 hrs Laboratory Tests Test 11/01/16 17:19 11/02/16 00:37 11/02/16 06:12 11/02/16 12:12 Bedside Glucose 118 127 128 148 Medications Medications Current Medications Miscellaneous Information 1 ea NOTE XX ; Start 10/09/16 at 23:45 Glucose (Glutose) 15 gm Q15M PRN PO DECREASED GLUCOSE; Start 10/09/16 at 23:45 Glucose (Glutose) 22.5 gm Q15M PRN PO DECREASED GLUCOSE; Start 10/09/16 at 23:45 Dextrose (D50w Syringe) 25 ml Q15M PRN IV DECREASED GLUCOSE; Start 10/09/16 at 23:45 Dextrose (D50w Syringe) 50 ml Q15M PRN IV DECREASED GLUCOSE; Start 10/09/16 at 23:45 Glucagon (Glucagen) 1 mg Q15M PRN IM DECREASED GLUCOSE; Start 10/09/16 at 23:45 Glucose (Glutose) 15 gm Q15M PRN BUCCAL DECREASED GLUCOSE; Start 10/09/16 at 23: 45 Metoclopramide HCl (Reglan) 10 mg Q6H PRN IV NAUSEA AND/OR VOMITING Last administered on 10/26/16 15:40; Admin Dose 10 MG; Start 10/10/16 at 00:00 Acetaminophen/ Hydrocodone Bitart ([place] (10/325)) 1 tab Q4H PRN PO PAIN Last administered on 10/12/16 13:23; Admin Dose 1 TAB; Start 10/11/16 at 06:00; Status Future Hold Diphenhydramine HCl (Benadryl) 25 mg Q6H PRN IV ITCHING Last administered on 00:40; Admin Dose 25 MG; Start 10/11/16 at 06:00 Diagnostic Test (Pha) (Accu-Chek) 1 ea 02 XX ; Start 10/12/16 at 02:00 Ondansetron HCl 4 mg 4 mg Q6H PRN IV NAUSEA AND/OR VOMITING Last administered on 10/26/16 12:31; Admin Dose 4 MG; Start 10/13/16 at 19:00 Potassium Chloride/Dextrose/ Sod Cl (D5-1/2ns + KCl 20 Meq) 1,000 ml @ 75 mls/ hr [id number] IV Last administered on 11/02/16 06:07; Admin Dose 75 MLS/HR; Start 10/13/16 at 18:58 Hydralazine HCl (Apresoline) 10 mg Q6H PRN IV SBP GREATER THAN 160 Last administered on 10/14/16 10:23; Admin Dose 10 MG; Start 10/14/16 at 10:30 Clonidine HCl (Catapres-Tts 1 Patch) 1 patch Q7D TRANSDERM Last administered on 10/28/16 13:03; Admin Dose 1 PATCH; Start 10/14/16 at 11:00 Phenol (Cepastat Lozenge) 1 lozenge Q4H PRN MT pain Last administered on 02:18; Admin Dose 1 LOZENGE; Start 10/16/16 at 14:00 Hydromorphone HCl 0.5 mg 0.5 mg Q4H PRN IV PAIN Last administered on 11/02/16 14:14; Admin Dose 0.5 MG; Start 10/22/16 at 14:00 Acetaminophen (Ofirmev 1000mg/ 100ml Iv) 100 ml @ 400 mls/hr Q6H PRN IVPB pain Last administered on 10/24/16 22:02; Admin Dose 400 MLS/HR; Start at 15:00 Insulin Aspart (Novolog Insulin Pen) NOVOLOG *MILD* ALGORI... Q6 SC Last administered on 11/02/16 12:16; Admin Dose 1 UNIT; Start 10/23/16 at 18:00 Duloxetine HCl (Cymbalta) 60 mg BID PO Last administered on 11/02/16 08:39; Admin Dose 60 MG; Start 10/28/16 at 10:30 Levothyroxine Sodium (Synthroid) 150 mcg DAILY@06 PO Last administered on 06:04; Admin Dose 150 MCG; Start 10/29/16 at 06:00 Levofloxacin (Levaquin) 500 mg DAILY@06 NGT Last administered on 11/02/16 13:44 ; Admin Dose 500 MG; Start 11/02/16 at 13:00 Metronidazole (Flagyl) 500 mg Q8 NGT Last administered on 11/02/16 13:43; Admin Dose 500 MG; Start 11/02/16 at 14:00 Pantoprazole (Protonix Tab) 40 mg DAILY@06 PO ; Start 11/03/16 at 06:00 BARBARA WHALEN MD November 02, 2016 15:25
--- NOTE | 2016-11-02 16:58 | PN ---
Date/Time of Note Date/Time of Note DATE: 11/02/16 TIME: 16:57 Assessment/Plan VTE Prophylaxis VTE Prophylaxis Intervention: SCD's Lines/Catheters IV Catheter Type (from Nrsg): Central Line Central line still needed: Yes (IV abx , difficult peripheral access ) Assessment/Plan Assessment/Plan 1. Acute diverticulitis with perforation causing diverticular abscess status post exploratory laparotomy and placement of diverting transverse colostomy for diversion of fecal stream. The patient also has colovesical fistula, keep jacobs catheter in IV abx zosyn,ID following Plan for CT abdomen + pelvis with oral contrast 2. Possible GIB-resolved -EGD shows Erosive esophagitis and Atopic gastropathy, [place] is nl 3. Hypothyroidism Continue Rx 4. Weakness and numbness of the left lower extremity-stable 5. Diabetes-currently stable Continue sliding-scale 6. Ileus 7. 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 -Emergency Management Director consult Prophylaxis: SCDs d/w pt- will need SNF placement on discharge Exam/Review of Systems Vital Signs Vitals Vital Signs Date Time Temp Pulse Resp B/P Pulse Ox O2 Delivery O2 Flow Rate FiO2 11/02/16 07:28 98.4 78 16 122/56 91 Intake and Output 11/01/16 11/01/16 11/02/16 15:00 23:00 07:00 Intake Total 600 ml 1770 ml 1360 ml Output Total 1000 ml 1950 ml 650 ml Balance -400 ml -180 ml 710 ml Exam Constitutional: alert Respiratory: clear to auscultation Cardiovascular: regular rate and rhythm Gastrointestinal: soft, No distended Musculoskeletal: nl extremities to inspection Results Result Diagram: 11/01/16 0520 11/01/16 0520 Results 24 hrs Laboratory Tests Test 11/01/16 17:19 11/02/16 00:37 11/02/16 06:12 11/02/16 12:12 Bedside Glucose 118 127 128 148 Medications Medications Current Medications Miscellaneous Information 1 ea NOTE XX ; Start 10/09/16 at 23:45 Glucose (Glutose) 15 gm Q15M PRN PO DECREASED GLUCOSE; Start 10/09/16 at 23:45 Glucose (Glutose) 22.5 gm Q15M PRN PO DECREASED GLUCOSE; Start 10/09/16 at 23:45 Dextrose (D50w Syringe) 25 ml Q15M PRN IV DECREASED GLUCOSE; Start 10/09/16 at 23:45 Dextrose (D50w Syringe) 50 ml Q15M PRN IV DECREASED GLUCOSE; Start 10/09/16 at 23:45 Glucagon (Glucagen) 1 mg Q15M PRN IM DECREASED GLUCOSE; Start 10/09/16 at 23:45 Glucose (Glutose) 15 gm Q15M PRN BUCCAL DECREASED GLUCOSE; Start 10/09/16 at 23: 45 Metoclopramide HCl (Reglan) 10 mg Q6H PRN IV NAUSEA AND/OR VOMITING Last administered on 10/26/16 15:40; Admin Dose 10 MG; Start 10/10/16 at 00:00 Acetaminophen/ Hydrocodone Bitart ([place] (10)) 1 tab Q4H PRN PO PAIN Last administered on 10/12/16 13:23; Admin Dose 1 TAB; Start 10/11/16 at 06:00; Status Future Hold Diphenhydramine HCl (Benadryl) 25 mg Q6H PRN IV ITCHING Last administered on 00:40; Admin Dose 25 MG; Start 10/11/16 at 06:00 Diagnostic Test (Pha) (Accu-Chek) 1 ea 02 XX ; Start 10/12/16 at 02:00 Ondansetron HCl 4 mg 4 mg Q6H PRN IV NAUSEA AND/OR VOMITING Last administered on 10/26/16 12:31; Admin Dose 4 MG; Start 10/13/16 at 19:00 Potassium Chloride/Dextrose/ Sod Cl (D5-1/2ns + KCl 20 Meq) 1,000 ml @ 75 mls/ hr [id number] IV Last administered on 11/02/16 06:07; Admin Dose 75 MLS/HR; Start 10/13/16 at 18:58 Hydralazine HCl (Apresoline) 10 mg Q6H PRN IV SBP GREATER THAN 160 Last administered on 10/14/16 10:23; Admin Dose 10 MG; Start 10/14/16 at 10:30 Clonidine HCl (Catapres-Tts 1 Patch) 1 patch Q7D TRANSDERM Last administered on 10/28/16 13:03; Admin Dose 1 PATCH; Start 10/14/16 at 11:00 Phenol (Cepastat Lozenge) 1 lozenge Q4H PRN MT pain Last administered on 02:18; Admin Dose 1 LOZENGE; Start 10/16/16 at 14:00 Hydromorphone HCl 0.5 mg 0.5 mg Q4H PRN IV PAIN Last administered on 11/02/16 14:14; Admin Dose 0.5 MG; Start 10/22/16 at 14:00 Acetaminophen (Ofirmev 1000mg/ 100ml Iv) 100 ml @ 400 mls/hr Q6H PRN IVPB pain Last administered on 10/24/16 22:02; Admin Dose 400 MLS/HR; Start at 15:00 Insulin Aspart (Novolog Insulin Pen) NOVOLOG *MILD* ALGORI... Q6 SC Last administered on 11/02/16 12:16; Admin Dose 1 UNIT; Start 10/23/16 at 18:00 Duloxetine HCl (Cymbalta) 60 mg BID PO Last administered on 11/02/16 08:39; Admin Dose 60 MG; Start 10/28/16 at 10:30 Levothyroxine Sodium (Synthroid) 150 mcg DAILY@06 PO Last administered on 06:04; Admin Dose 150 MCG; Start 10/29/16 at 06:00 Levofloxacin (Levaquin) 500 mg DAILY@06 NGT Last administered on 11/02/16 13:44 ; Admin Dose 500 MG; Start 11/02/16 at 13:00 Metronidazole (Flagyl) 500 mg Q8 NGT Last administered on 11/02/16 13:43; Admin Dose 500 MG; Start 11/02/16 at 14:00 Pantoprazole (Protonix Tab) 40 mg DAILY@06 PO ; Start 11/03/16 at 06:00 UGO BRYANT MD November 02, 2016 16:58
[2016-11-02] MEDS: ONDANSETRON 4 MG INJ IV PRN (18:02)
[2016-11-02 19:32] VITALS: BP 132/62; RESP 16
[2016-11-03] MEDS: ACCUCHECK AT 2AM (Patients on SS coverage) XX SCH (02:00)
[2016-11-03] MEDS: HYDROmorphONE 1 MG/ML SYG IV PRN ×5 (02:02→18:09)
[2016-11-03] MEDS: D5W-0.45 NACL + KCL 20 MEQ 1,000 ML IV SCH ×2 (05:38→10:17)
[2016-11-03] MEDS: INSULIN ASPART [NOVOLOG] 3 ML PEN SC SCH ×4 (06:00→18:00)
[2016-11-03] MEDS ORDERED: PANTOPRAZOLE (EC) 40 MG TAB PO SCH (06:00)
[2016-11-03] MEDS: LEVOFLOXACIN 500 MG TAB NGT SCH (06:15)
[2016-11-03] MEDS: LEVOTHYROXINE 150 MCG TAB PO SCH (06:15)
[2016-11-03] MEDS: metroNIDAZOLE 500 MG TAB NGT SCH ×2 (06:15→14:09)
[2016-11-03 07:46] VITALS: BP 123/59; RESP 18
[2016-11-03] MEDS: DULOXETINE 30 MG CAP DR PO SCH (08:55)
--- NOTE | 2016-11-03 12:09 | CONS ---
Date/Time of Note Date/Time of Note DATE: 11/03/16 TIME: 12:08 Assessment/Plan Assessment/Plan Chief Complaint/Hosp Course SUBJECTIVE: No acute changes overnight. The patient is lying comfortably in bed. No fevers. Vital signs stable. PHYSICAL EXAMINATION: GENERAL: This is a fragile, elderly woman who is awake, in no distress. HEENT: Head atraumatic, normocephalic. Sclerae anicteric. Buccal mucosa dry. NECK: Supple. CHEST: Rise symmetrical. Breath sounds clear. HEART: S1, S2. ABDOMEN: Soft, bowel sounds present. EXTREMITIES: No cyanosis. ASSESSMENT: 1. Status post transverse loop colostomy for diverticulitis and diverticular abscess with CT of the abdomen and pelvis on 10/31/2016 revealed presence of sigmoid colon inflammatory changes and small peridiverticular abscess. 3. Colovaginal fistula. 4. Diabetes. 5. Hyperbilirubinemia. PLAN: Stable, will keep on current abx for 2 weeks, f/u surgical rec-s [facility] staff Problems: Consultation Date/Type/Reason Admit Date/Time Oct 09, 2016 at 17:35 Initial Consult Date 10/28/16 Type of Consultation: ID Referring Provider: ARAMIS SY Exam/Review of Systems Vital Signs Vitals Vital Signs Date Time Temp Pulse Resp B/P Pulse Ox O2 Delivery O2 Flow Rate FiO2 11/03/16 07:46 97.9 18 123/59 95 11/02/16 19:32 77 Intake and Output 11/02/16 11/02/16 11/03/16 15:00 23:00 07:00 Intake Total 1900 ml 1475 ml Output Total 950 ml 3 ml Balance 950 ml 1472 ml Results Result Diagram: 11/01/16 0520 11/01/16 0520 Results 24 hrs Laboratory Tests Test 11/02/16 12:12 11/02/16 17:02 11/03/16 00:17 11/03/16 06:29 Bedside Glucose 148 103 130 119 Medications Medications Current Medications Miscellaneous Information 1 ea NOTE XX ; Start 10/09/16 at 23:45 Glucose (Glutose) 15 gm Q15M PRN PO DECREASED GLUCOSE; Start 10/09/16 at 23:45 Glucose (Glutose) 22.5 gm Q15M PRN PO DECREASED GLUCOSE; Start 10/09/16 at 23:45 Dextrose (D50w Syringe) 25 ml Q15M PRN IV DECREASED GLUCOSE; Start 10/09/16 at 23:45 Dextrose (D50w Syringe) 50 ml Q15M PRN IV DECREASED GLUCOSE; Start 10/09/16 at 23:45 Glucagon (Glucagen) 1 mg Q15M PRN IM DECREASED GLUCOSE; Start 10/09/16 at 23:45 Glucose (Glutose) 15 gm Q15M PRN BUCCAL DECREASED GLUCOSE; Start 10/09/16 at 23: 45 Metoclopramide HCl (Reglan) 10 mg Q6H PRN IV NAUSEA AND/OR VOMITING Last administered on 10/26/16 15:40; Admin Dose 10 MG; Start 10/10/16 at 00:00 Acetaminophen/ Hydrocodone Bitart ([place] ()) 1 tab Q4H PRN PO PAIN Last administered on 10/12/16 13:23; Admin Dose 1 TAB; Start 10/11/16 at 06:00; Status Future Hold Diphenhydramine HCl (Benadryl) 25 mg Q6H PRN IV ITCHING Last administered on 00:40; Admin Dose 25 MG; Start 10/11/16 at 06:00 Diagnostic Test (Pha) (Accu-Chek) 1 ea 02 XX ; Start 10/12/16 at 02:00 Ondansetron HCl 4 mg 4 mg Q6H PRN IV NAUSEA AND/OR VOMITING Last administered on 11/02/16 18:02; Admin Dose 4 MG; Start 10/13/16 at 19:00 Potassium Chloride/Dextrose/ Sod Cl (D5-1/2ns + KCl 20 Meq) 1,000 ml @ 75 mls/ hr [id number] IV Last administered on 11/03/16 10:17; Admin Dose 75 MLS/HR; Start 10/13/16 at 18:58 Hydralazine HCl (Apresoline) 10 mg Q6H PRN IV SBP GREATER THAN 160 Last administered on 10/14/16 10:23; Admin Dose 10 MG; Start 10/14/16 at 10:30 Clonidine HCl (Catapres-Tts 1 Patch) 1 patch Q7D TRANSDERM Last administered on 10/28/16 13:03; Admin Dose 1 PATCH; Start 10/14/16 at 11:00 Phenol (Cepastat Lozenge) 1 lozenge Q4H PRN MT pain Last administered on 02:18; Admin Dose 1 LOZENGE; Start 10/16/16 at 14:00 Hydromorphone HCl 0.5 mg 0.5 mg Q4H PRN IV PAIN Last administered on 11/03/16 10:09; Admin Dose 0.5 MG; Start 10/22/16 at 14:00 Acetaminophen (Ofirmev 1000mg/ 100ml Iv) 100 ml @ 400 mls/hr Q6H PRN IVPB pain Last administered on 10/24/16 22:02; Admin Dose 400 MLS/HR; Start at 15:00 Insulin Aspart (Novolog Insulin Pen) NOVOLOG *MILD* ALGORI... Q6 SC Last administered on 11/02/16 12:16; Admin Dose 1 UNIT; Start 10/23/16 at 18:00 Duloxetine HCl (Cymbalta) 60 mg BID PO Last administered on 11/03/16 08:55; Admin Dose 60 MG; Start 10/28/16 at 10:30 Levothyroxine Sodium (Synthroid) 150 mcg DAILY@06 PO Last administered on 06:15; Admin Dose 150 MCG; Start 10/29/16 at 06:00 Levofloxacin (Levaquin) 500 mg DAILY@06 NGT Last administered on 11/03/16 06:15 ; Admin Dose 500 MG; Start 11/02/16 at 13:00 Metronidazole (Flagyl) 500 mg Q8 NGT Last administered on 11/03/16 06:15; Admin Dose 500 MG; Start 11/02/16 at 14:00 Pantoprazole (Protonix Tab) 40 mg DAILY@06 PO Last administered on 11/03/16 06: 15; Admin Dose 40 MG; Start 11/03/16 at 06:00 CARMEN WHEAT NP November 03, 2016 12:09
--- NOTE | 2016-11-03 12:39 | PDOCDIS ---
Discharge Instructions CONDITION Patient Condition: Good HOME CARE INSTRUCTIONS: Special Diet: Soft Diet ACTIVITY: Activity Restrictions: Slowly Increase Activity Rest between Activity Avoid heavy lifting Avoid Heavy Housework FOLLOW UP/APPOINTMENTS Appointments follow up with physician at longterm facility, follow up with General surery in 1-2 week after discharge. Gi physician Pt will need urolgoy follow up later as outpatient for her colovesical fistula UGO BRYANT MD November 03, 2016 12:39
--- NOTE | 2016-11-03 12:42 | PN ---
Date/Time of Note Date/Time of Note DATE: 11/03/16 TIME: 12:41 Assessment/Plan VTE Prophylaxis VTE Prophylaxis Intervention: SCD's Lines/Catheters IV Catheter Type (from Nrsg): Central Line Central line still needed: Yes (plan is to d/c on discharge ) Assessment/Plan Assessment/Plan 1. Acute diverticulitis with perforation causing diverticular abscess status post exploratory laparotomy and placement of diverting transverse colostomy for diversion of fecal stream. The patient also has colovesical fistula, keep jacobs catheter in IV abx zosyn,ID following Plan for CT abdomen + pelvis with oral contrast 2. Possible GIB-resolved -EGD shows Erosive esophagitis and Atopic gastropathy, [place] is nl 3. Hypothyroidism Continue Rx 4. Weakness and numbness of the left lower extremity-stable 5. Diabetes-currently stable Continue sliding-scale 6. Ileus 7. 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 -Patient Services Technician consult Prophylaxis: SCDs d/w pt- d/c to SNF today if ok with general surgery Subjective 24 Hr Interval Summary Free Text/Dictation doing better, tolerating PO diet, Bp stable Exam/Review of Systems Vital Signs Vitals Vital Signs Date Time Temp Pulse Resp B/P Pulse Ox O2 Delivery O2 Flow Rate FiO2 11/03/16 07:46 97.9 18 123/59 95 11/02/16 19:32 77 Intake and Output 11/02/16 11/02/16 11/03/16 15:00 23:00 07:00 Intake Total 1900 ml 1475 ml Output Total 950 ml 3 ml Balance 950 ml 1472 ml Results Result Diagram: 11/01/16 0520 11/01/16 0520 Results 24 hrs Laboratory Tests Test 11/02/16 17:02 11/03/16 00:17 11/03/16 06:29 11/03/16 12:13 Bedside Glucose 103 130 119 134 Medications Medications Current Medications Miscellaneous Information 1 ea NOTE XX ; Start 10/09/16 at 23:45 Glucose (Glutose) 15 gm Q15M PRN PO DECREASED GLUCOSE; Start 10/09/16 at 23:45 Glucose (Glutose) 22.5 gm Q15M PRN PO DECREASED GLUCOSE; Start 10/09/16 at 23:45 Dextrose (D50w Syringe) 25 ml Q15M PRN IV DECREASED GLUCOSE; Start 10/09/16 at 23:45 Dextrose (D50w Syringe) 50 ml Q15M PRN IV DECREASED GLUCOSE; Start 10/09/16 at 23:45 Glucagon (Glucagen) 1 mg Q15M PRN IM DECREASED GLUCOSE; Start 10/09/16 at 23:45 Glucose (Glutose) 15 gm Q15M PRN BUCCAL DECREASED GLUCOSE; Start 10/09/16 at 23: 45 Metoclopramide HCl (Reglan) 10 mg Q6H PRN IV NAUSEA AND/OR VOMITING Last administered on 10/26/16 15:40; Admin Dose 10 MG; Start 10/10/16 at 00:00 Acetaminophen/ Hydrocodone Bitart ([place] (10)) 1 tab Q4H PRN PO PAIN Last administered on 10/12/16 13:23; Admin Dose 1 TAB; Start 10/11/16 at 06:00; Status Future Hold Diphenhydramine HCl (Benadryl) 25 mg Q6H PRN IV ITCHING Last administered on 00:40; Admin Dose 25 MG; Start 10/11/16 at 06:00 Diagnostic Test (Pha) (Accu-Chek) 1 ea 02 XX ; Start 10/12/16 at 02:00 Ondansetron HCl (Zofran Inj) 4 mg Q6H PRN IV NAUSEA AND/OR VOMITING Last administered on 11/02/16 18:02; Admin Dose 4 MG; Start 10/13/16 at 19:00 Hydralazine HCl (Apresoline) 10 mg Q6H PRN IV SBP GREATER THAN 160 Last administered on 10/14/16 10:23; Admin Dose 10 MG; Start 10/14/16 at 10:30 Clonidine HCl (Catapres-Tts 1 Patch) 1 patch Q7D TRANSDERM Last administered on 10/28/16 13:03; Admin Dose 1 PATCH; Start 10/14/16 at 11:00 Phenol (Cepastat Lozenge) 1 lozenge Q4H PRN MT pain Last administered on 02:18; Admin Dose 1 LOZENGE; Start 10/16/16 at 14:00 Hydromorphone HCl (Dilaudid) 0.5 mg Q4H PRN IV PAIN Last administered on 10:09; Admin Dose 0.5 MG; Start 10/22/16 at 14:00 Insulin Aspart (Novolog Insulin Pen) NOVOLOG *MILD* ALGORI... Q6 SC Last administered on 11/02/16 12:16; Admin Dose 1 UNIT; Start 10/23/16 at 18:00 Duloxetine HCl (Cymbalta) 60 mg BID PO Last administered on 11/03/16 08:55; Admin Dose 60 MG; Start 10/28/16 at 10:30 Levothyroxine Sodium (Synthroid) 150 mcg DAILY@06 PO Last administered on 06:15; Admin Dose 150 MCG; Start 10/29/16 at 06:00 Levofloxacin (Levaquin) 500 mg DAILY@06 NGT Last administered on 11/03/16 06:15 ; Admin Dose 500 MG; Start 11/02/16 at 13:00 Metronidazole (Flagyl) 500 mg Q8 NGT Last administered on 11/03/16 06:15; Admin Dose 500 MG; Start 11/02/16 at 14:00 Pantoprazole (Protonix Tab) 40 mg DAILY@06 PO Last administered on 11/03/16 06: 15; Admin Dose 40 MG; Start 11/03/16 at 06:00 UGO BRYANT MD November 03, 2016 12:42
--- NOTE | 2016-11-03 16:02 | PN ---
Date/Time of Note Date/Time of Note DATE: 11/03/16 TIME: 15:57 Assessment/Plan VTE Prophylaxis VTE Prophylaxis Intervention: SCD's Lines/Catheters IV Catheter Type (from Nrsg): Central Line Central line still needed: Yes Assessment/Plan Assessment/Plan bdominal pain improved CT abdomen/Pelvis Status post transverse colon diverting colostomy. No evidence of bowel obstruction. No evidence of fluid collection in the surgical field. . Diverticulosis of the sigmoid colon with surrounding inflammatory changes and small peridiverticular abscess. Probable fistulous tract in between the inflamed sigmoid colon, vaginal cuff and left posterolateral urinary bladder. Moderate hiatal hernia. Status post cholecystectomy. No intrahepatic biliary ductal dilatation. Mild prominence of the CBD. Correlate with labs. EGD 10/25/2016 * Erosive esophagitis. * Moderate-sized hiatal hernia. * Atopic gastropathy. Gastric Biopsies: Mild superficial chronic gastritis with extensive intestinal metaplasia. negative for Helicobacter pylori organisms No malignancy or dysplasia is identified. Vaginal Bleeding improved Sigmoid diverticulitis with abscess controlled Colovesical fistula, * Exploratory laparotomy,incision and drainage,transverse loop colostomy Hyperlipidemia Major depression Diabetes mellitus Plan * stable for outpatient management * continue ppi for 2 weeks Subjective 24 Hr Interval Summary Free Text/Dictation * course reviewed with RN * patient seen and examined * denies abdominal pain Exam/Review of Systems Vital Signs Vitals Vital Signs Date Time Temp Pulse Resp B/P Pulse Ox O2 Delivery O2 Flow Rate FiO2 11/03/16 07:46 97.9 18 123/59 95 11/02/16 19:32 77 Intake and Output 11/02/16 11/02/16 11/03/16 15:00 23:00 07:00 Intake Total 1900 ml 1475 ml Output Total 950 ml 3 ml Balance 950 ml 1472 ml Exam Constitutional: alert, oriented Psych: no complaints Neck: supple Respiratory: clear to auscultation, normal air movement Cardiovascular: nl pulses, regular rate and rhythm Gastrointestinal: nl liver, spleen, non-tender, other (colostomy), soft Musculoskeletal: nl extremities to inspection Results Result Diagram: 11/01/16 0520 11/01/16 0520 Results 24 hrs Laboratory Tests Test 11/02/16 17:02 11/03/16 00:17 11/03/16 06:29 11/03/16 12:13 Bedside Glucose 103 130 119 134 Medications Medications Current Medications Miscellaneous Information 1 ea NOTE XX ; Start 10/09/16 at 23:45 Glucose (Glutose) 15 gm Q15M PRN PO DECREASED GLUCOSE; Start 10/09/16 at 23:45 Glucose (Glutose) 22.5 gm Q15M PRN PO DECREASED GLUCOSE; Start 10/09/16 at 23:45 Dextrose (D50w Syringe) 25 ml Q15M PRN IV DECREASED GLUCOSE; Start 10/09/16 at 23:45 Dextrose (D50w Syringe) 50 ml Q15M PRN IV DECREASED GLUCOSE; Start 10/09/16 at 23:45 Glucagon (Glucagen) 1 mg Q15M PRN IM DECREASED GLUCOSE; Start 10/09/16 at 23:45 Glucose (Glutose) 15 gm Q15M PRN BUCCAL DECREASED GLUCOSE; Start 10/09/16 at 23: 45 Metoclopramide HCl (Reglan) 10 mg Q6H PRN IV NAUSEA AND/OR VOMITING Last administered on 10/26/16 15:40; Admin Dose 10 MG; Start 10/10/16 at 00:00 Acetaminophen/ Hydrocodone Bitart (Calvin (10/325)) 1 tab Q4H PRN PO PAIN Last administered on 10/12/16 13:23; Admin Dose 1 TAB; Start 10/11/16 at 06:00; Status Future Hold Diphenhydramine HCl (Benadryl) 25 mg Q6H PRN IV ITCHING Last administered on 00:40; Admin Dose 25 MG; Start 10/11/16 at 06:00 Diagnostic Test (Pha) (Accu-Chek) 1 ea 02 XX ; Start 10/12/16 at 02:00 Ondansetron HCl (Zofran Inj) 4 mg Q6H PRN IV NAUSEA AND/OR VOMITING Last administered on 11/02/16 18:02; Admin Dose 4 MG; Start 10/13/16 at 19:00 Hydralazine HCl (Apresoline) 10 mg Q6H PRN IV SBP GREATER THAN 160 Last administered on 10/14/16 10:23; Admin Dose 10 MG; Start 10/14/16 at 10:30 Clonidine HCl (Catapres-Tts 1 Patch) 1 patch Q7D TRANSDERM Last administered on 10/28/16 13:03; Admin Dose 1 PATCH; Start 10/14/16 at 11:00 Phenol (Cepastat Lozenge) 1 lozenge Q4H PRN MT pain Last administered on 02:18; Admin Dose 1 LOZENGE; Start 10/16/16 at 14:00 Hydromorphone HCl (Dilaudid) 0.5 mg Q4H PRN IV PAIN Last administered on 14:11; Admin Dose 0.5 MG; Start 10/22/16 at 14:00 Insulin Aspart (Novolog Insulin Pen) NOVOLOG *MILD* ALGORI... Q6 SC Last administered on 11/02/16 12:16; Admin Dose 1 UNIT; Start 10/23/16 at 18:00 Duloxetine HCl (Cymbalta) 60 mg BID PO Last administered on 11/03/16 08:55; Admin Dose 60 MG; Start 10/28/16 at 10:30 Levothyroxine Sodium (Synthroid) 150 mcg DAILY@06 PO Last administered on 06:15; Admin Dose 150 MCG; Start 10/29/16 at 06:00 Levofloxacin (Levaquin) 500 mg DAILY@06 NGT Last administered on 11/03/16 06:15 ; Admin Dose 500 MG; Start 11/02/16 at 13:00 Metronidazole (Flagyl) 500 mg Q8 NGT Last administered on 11/03/16 14:09; Admin Dose 500 MG; Start 11/02/16 at 14:00 Pantoprazole (Protonix Tab) 40 mg DAILY@06 PO Last administered on 11/03/16 06: 15; Admin Dose 40 MG; Start 11/03/16 at 06:00 BARBARA WHALEN MD November 03, 2016 16:02
[2016-11-03 19:37] VITALS: BP 129/61; RESP 16
--- NOTE | 2016-11-03 21:20 | PN ---
DATE: 11/03/2016 SUBJECTIVE: Still complaining that she does not have that much of an appetite, otherwise no other c omplaints. OBJECTIVE: VITAL SIGNS: Stable, no fever 97.9, heart rate 77, respiration 18, blood pressure 123/59, saturatio n 95% room air. ABDOMEN: Soft. Colostomy is functioning. There is some soft stool in the colostomy bag. LABORATORY DATA: Midline incision and wound is clean. They have changed it and painted with Betadin e. ASSESSMENT: The patient is status post laparotomy and placement of a transverse loop colostomy for diversion of the fecal stream to ____ the diverticulitis and possible colovesical fistula. The last CT scan was 3 days ago shows minimal diverticulitis and otherwise much improvement and 1 cm abscess previously was 3 cm x 3 cm x 2 abscesses. PLAN: 1. The patient from surgical point of view can be discharged to shelter. 2. Before discharging the patient, please nurse remove ____ the right side of the neck and have the patient lay down flat. While removing that one and also keep her flat, lay down from 1 hour after r emoving that. No sitting position. Also please ask the internal medicine hospitalist to give some prescription to increase the patient's appetite. Follow up with Dr. Jiménez' office. The patient to call the office and make an appointment for 2 weeks from now. Dictated By: TICO GUADARRAMA/ELINA Conf#: [id number] DID#: [id number]
--- NOTE | 2016-11-05 20:43 | DS ---
DATE OF ADMISSION: 10/09/2016 DATE OF DISCHARGE: 11/03/2016 FINAL DISCHARGE DIAGNOSES: 1. Acute diverticulitis with perforation causing diverticular abscess status post exploratory laparotomy and placement of a diverting transverse colostomy for diversion of fecal stream. The patient also has a colovesicular fistula. 2. Possible lower gastrointestinal bleeding, status post esophagogastroduodenoscopy and colonoscopy. 3. History of hypothyroidism. 4. Severe deconditioning secondary to prolonged hospitalization for diverticular abscess requiring extensive surgery and postsurgical care. 5. Diabetes mellitus. 6. Postoperative ileus. 7. 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. 8. History of total abdominal hysterectomy with vaginal bleeding. 9. History of cholecystectomy. 10. Moderate hiatal hernia. CONSULTATIONS DONE DURING THIS HOSPITALIZATION: 1. GI consult, Dr. Carson. 2. Infectious disease consult, Dr. Singer. 3. General surgery consult, Dr. Jiménez/Dr. Ballesteros. 4. MANAGER VIDEO consultation, Dr. Nicky Izaguirre. PROCEDURES AND OPERATIONS PERFORMED DURING THIS HOSPITALIZATION: 1. The patient underwent exploratory laparotomy and placement of a diverting transverse colostomy for diversion of fecal stream. 2. The patient also underwent a postoperative ____ abdominal x-ray and a followup CT scan on 10/31/2016, which shows colostomy, no evidence of any obstruction, no evidence of fluid collection in the surgical field. The patient has diverticulosis of sigmoid colon with surrounding inflammatory changes and small peridiverticular abscess. She also has a colofistulous tract between the inflamed sigmoid colon, vaginal cuff, and left posterolateral urinary bladder. HOSPITAL COURSE: This is a 61-year-old female who has a past medical history of cholecystectomy, history of total abdominal hysterectomy, history of asthma, history of coronary artery disease, history of previous hernia surgery and back surgery, type 2 diabetes mellitus, hypothyroidism, depression. The patient presented with abdominal pain. Also was complaining of vaginal bleeding during this hospitalization. She was admitted initially on 10/04/2016 with multiple complaints. The patient had an acute diverticulitis with bowel perforation causing acute diverticular abscess. She also had a rectovaginal fistula. The patient's primary surgeon was Dr. Jiménez. The patient was taken to the OR and had exploratory laparotomy along with that diversion of colostomy that was done. The patient's postoperative course was very lengthy and prolonged secondary to postoperative ileus. She was treated with IV antibiotics. Infectious disease was following the patient. The patient also had diabetes mellitus and hyperbilirubinemia while being in the hospital. She has a mildly dilated common bile duct, for which she had a GI consultation done by Dr. Carson. The patient remained hemodynamically stable. She was continued on IV antibiotics while being in the hospital. Slowly, gradually, she improved back to her normal baseline and regained her bowel sounds. She had a followup CT abdomen and pelvis done on 10/31/2016, which shows no evidence of any obstruction or abscess. The patient still has colovesicular fistula and, during this hospitalization, she had episode of vaginal bleeding for which a MANAGER VIDEO consultation was done, but there was no surgical recommendation obtained from the MANAGER VIDEO. They recommended to treat it conservatively. She slowly and gradually back to her normal baseline status. She received almost 1 month of IV antibiotics while being in the hospital. She was set up for [place] [facility] [place] upon discharge and she was discharged to [facility] with 2 weeks course of p.o. antibiotics upon discharge. She was cleared for discharge from general surgery, infectious disease, and other subspecialist services on discharge. DISPOSITION: To a [facility] facility. DISCHARGE CONDITION: Stable and improved compared to admission. DISCHARGE ACTIVITIES: As tolerated, slowly resume to the normal baseline activity. DISCHARGE DIET: A soft consistency regular diet. DISCHARGE MEDICATIONS: As per medical reconciliation. The patient was discharged to a [facility] facility with prescriptions of medication reconciliation and on the medication reconciliation, she was continued on Levaquin upon discharge. DISCHARGE AND FOLLOWUP INSTRUCTIONS: 1. The patient is to follow up with the [facility] home physician. 2. The patient is to follow up with general surgery, Dr. Jiménez, as outpatient in 1 to 2 weeks after discharge. 3. The patient will be followed up by GI and infectious disease services as scheduled. The patient and her family at bedside have been explained about the discharge plan and followup instructions. They understood and verbalized understanding. The patient finally was discharged to [facility]. Total time spent in this patient's discharge plan, coming up with recommendations, and the followup appointment, explaining to the patient's family and the patient at bedside, and communicating with the nursing staff took more than 60 minutes. Dictated By: UGO BRYANT MD, KP/ELINA Conf#: [id number] DID#: [id number] CC: NOAH HAMILTON MD;*EndCC* MTDD
== END 2016-11-03 20:30 | DRG 330 ==
LOC: MS2 10-09 17:35
PROVIDERS: ADMIT Family Medicine; ATTEND Family Medicine
PROC: 30233N1 Transfusion of Nonautologous Red Blood Cells into Peripheral Vein, Percutaneous Approach (ICD-10-PCS; 2016-10-10)
PROC: 0W9J0ZZ Drainage of Pelvic Cavity, Open Approach (ICD-10-PCS; 2016-10-13)
PROC: 0DNW0ZZ Release Peritoneum, Open Approach (ICD-10-PCS; 2016-10-13)
PROC: 02HV33Z Insertion of Infusion Device into Superior Vena Cava, Percutaneous Approach (ICD-10-PCS; 2016-10-13)
PROC: 0D1L0Z4 Bypass Transverse Colon to Cutaneous, Open Approach (ICD-10-PCS; principal; 2016-10-13 16:00)
PROC: 0DB68ZX Excision of Stomach, Via Natural or Artificial Opening Endoscopic, Diagnostic (ICD-10-PCS; 2016-10-28)
PROC: 0DJD8ZZ Inspection of Lower Intestinal Tract, Via Natural or Artificial Opening Endoscopic (ICD-10-PCS; 2016-10-28)
DX: K57.21 Diverticulitis of large intestine with perforation and abscess with bleeding (principal); N32.1 Vesicointestinal fistula; K56.7 Ileus, unspecified; K91.89 Other postprocedural complications and disorders of digestive system; N82.3 Fistula of vagina to large intestine; N73.5 Female pelvic peritonitis, unspecified; E03.9 Hypothyroidism, unspecified; E11.9 Type 2 diabetes mellitus without complications; K44.9 Diaphragmatic hernia without obstruction or gangrene; F32.9 Major depressive disorder, single episode, unspecified; K66.0 Peritoneal adhesions (postprocedural) (postinfection); E87.6 Hypokalemia; E83.42 Hypomagnesemia; E78.5 Hyperlipidemia, unspecified; Y83.8 Other surgical procedures as the cause of abnormal reaction of the patient, or of later complication, without mention of misadventure at the time of the procedure; Y92.238 Other place in hospital as the place of occurrence of the external cause; K20.8 Other esophagitis; K31.9 Disease of stomach and duodenum, unspecified; N93.9 Abnormal uterine and vaginal bleeding, unspecified; R53.1 Weakness; E80.7 Disorder of bilirubin metabolism, unspecified; R20.0 Anesthesia of skin; Z79.4 Long term (current) use of insulin; Z90.710 Acquired absence of both cervix and uterus
CPT/HCPCS: 36430; 71010; 71020; 74000; 74177; 76856; 80048; 80053; 82962; 83036; 83735; 84100; 85014; 85018; 85025; 85610; 85651; 85730; 86140; 86850; 86900; 86901; 86920; 87086; 87338; 88305; 88312; 93005; 93306; 97116; 97163; 97530; C9113; J0131; J0360; J0744; J1170; J1200; J1815; J1885; J2250; J2270; J2370; J2405; J2543; J2710; J2765; J2795; J2997; J3475; J3480; J7030; J7040; P9016; Q9967

== ENCOUNTER 2016-12-06 16:24 | Inpatient (IN) | payer BC ==
[~2016-12-06] VITALS: Ht 160 cm; Wt 58.5 kg
[~2016-12-06 16:24] MED LIST changes: +ACET325T33 PO; +ALBU90AE INHALATION; -ATEN-51 PO; -BECL8.7A5 IH; -CALC-143 PO; +CALC600T11 PO; +CLON-379 PO; -CYCL-319 PO; +GABA100C PO; -GABA300C16 PO; -GLIP5TAB13 PO; -HYDR-2059 PO; -INDO75CA PO; -INSU100I15 SC; +LANT3I SC; -LEVO500T10 PO; -METR500T PO; +MTF1000T PO; -OMEP40CA6 PO; +PANT40TA4 PO; +PARO40TA79 PO; +PUMP MISCELLANEOUS; -RANI150C11 PO; +SIMV20TA PO; +SYN15 PO; -TRAM100T27 PO
[2016-12-06 16:25] VITALS: Ht 160 cm; Wt 58.5 kg
[2016-12-06] MEDS ORDERED: morphine 4 MG/ML VIAL IV STA (19:06)
[2016-12-06] MEDS ORDERED: ONDANSETRON 4 MG INJ IV STA (19:06)
[2016-12-06] MEDS ORDERED: SOD CHLORIDE 0.9% 1,000 ML IV STA (19:06)
[2016-12-06 19:25] LABS: ADD SCAN DIFF NO
[2016-12-06 19:27] LABS: BASOPHILS % 0.2 % (0.0-2.0); EOSINOPHILS % 0.3 % (0.0-7.0); HEMATOCRIT 36.8 % (37.0-47.0); HEMOGLOBIN 11.7 g/dl (12.0-16.0); LYMPHOCYTES # 1.1 10^3/ul (0.8-2.9); MEAN CORPUSCULAR HEMOGLOBIN 28.1 pg (29.0-33.0); MEAN CORPUSCULAR HGB CONC 31.8 g/dl (32.0-37.0); MEAN CORPUSCULAR VOLUME 88.5 fl (82.0-101.0); MEAN PLATELET VOLUME 8.1 fl (7.4-10.4); MONOCYTE # 0.5 10^3/ul (0.3-0.9); MONOCYTES % 4.1 % (0.0-11.0); NEUTROPHIL # 10.2 10^3/ul (1.6-7.5); PLATELET COUNT 440 10^3/UL (140-415); RED BLOOD COUNT 4.16 10^6/ul (4.20-5.40); RED CELL DISTRIBUTION WIDTH 17.7 % (11.5-14.5); WHITE BLOOD COUNT 11.9 10^3/ul (4.8-10.8)
[2016-12-06 19:37] LABS: ADD UMIC YES; URINE BLOOD (Dip) NEGATIVE (NEGATIVE); URINE COLOR YELLOW (YELLOW); URINE GLUCOSE (Dip) NEGATIVE (NEGATIVE); URINE KETONES (Dip) NEGATIVE (NEGATIVE); URINE LEUKOCYTE ESTERASE (Dip) TRACE (NEGATIVE); URINE NITRITE (Dip) NEGATIVE (NEGATIVE); URINE TOTAL PROTEIN (Dip) TRACE (NEGATIVE); URINE UROBILINOGEN (Dip) 1.0 E.U./dL (0.1-1.0)
[2016-12-06 19:46] LABS: URINE BILIRUBIN (Dip) NEGATIVE (NEGATIVE)
[2016-12-06 19:47] LABS: BACTERIA,URINE RARE; SQUAMOUS EPITHELIAL CELL,UR FEW; URINE RBCS 0-2 /HPF (0)
[2016-12-06 19:53] LABS: ALBUMIN 4.7 g/dl (3.3-4.9); ALBUMIN/GLOBULIN RATIO 1.46; BILIRUBIN,INDIRECT 0.2 mg/dl (0-1.1); BILIRUBIN,TOTAL 0.2 mg/dl (0.2-1.3); CALCIUM 9.7 mg/dl (8.4-10.2); CREATININE 0.55 mg/dl (0.44-1.00); POTASSIUM 3.9 mmol/L (3.5-5.1); TOTAL PROTEIN 7.9 g/dl (6.1-8.1)
[2016-12-06] MEDS ORDERED: IOHEXOL 300MG/ML 150 ML BTL ONE (19:58)
[2016-12-06] MEDS ORDERED: SOD CHLORIDE 0.9% 100 ML ONE (19:58)
--- NOTE | 2016-12-06 20:18 | ERA ---
ER Documentation Chief Complaint Date/Time DATE: 12/06/16 TIME: 19:58 Chief Complaint colostomy stoma area painful x3 days, in place for 3mths, abd distention HPI 61-year-old female with history of diabetes mellitus, hypothyroidism, diverticulitis status post diverting colostomy for perforation with diverticular abscess and colovesicular and colovaginal fistula presents the ED complaining of a 3 day history of increasing peristomal swelling and moderate, crampy pain. Patient reports that her colostomy bag sometimes does not adhere to the skin due to the swelling. Still passing stool and flatus. Denies nausea , vomiting or diarrhea. No relieving or exacerbating factors. No dysuria, polyuria, hematuria or flank pain. Denies chest pain or palpitations. No shortness of breath or cough. No fevers or chills. ROS All systems reviewed and are negative except as per history of present illness. Medications Home Meds Reported Medications Insulin Glulisine (Apidra Solostar) 100 Unit/1 Ml Insuln.pen, 8 UNIT SQ TID, #1 TUB 12/06/16 Calcium Citrate/Vitamin D2 (Calcium with Vit D Tablet) 1 Each Tablet, 1 EACH PO , TAB 12/06/16 Cyclobenzaprine Hcl* (Cyclobenzaprine Hcl*) 10 Mg Tablet, 10 MG PO Q8 Y for MUSCLE SPASM, #60 TAB 12/06/16 Tramadol Hcl* (Ultram*) 50 Mg Tablet, 50 MG PO Q6H Y for PAIN, TAB 12/06/16 Ranitidine Hcl* (Ranitidine Hcl*) 150 Mg Tablet, 150 MG PO HS, #30 TAB 12/06/16 Indomethacin* (Indocin*) 25 Mg Capsule, 75 MG PO BID, CAP 12/06/16 Ergocalciferol (Vitamin D2) (VITAMIN D2) 50,000 Unit Capsule, 02179 UNIT PO QMON , CAP 12/06/16 Atorvastatin Calcium* (Atorvastatin Calcium*) 20 Mg Tablet, 20 MG PO QHS, #30 TAB 12/06/16 Gabapentin* (Gabapentin*) 100 Mg Capsule, 200 MG PO QHS, #90 CAP 12/06/16 Gabapentin* (Gabapentin*) 100 Mg Capsule, 100 MG PO WITH BREAKFAST, #90 CAP 12/06/16 Calcium Carbonate* (Calcium Carbonate*) 600 MG Ca Tab, 1000 MG PO Q4 Y for UPSET STOMACH, TAB 10/09/16 Paroxetine Hcl* (Paroxetine*) 40 Mg Tablet, 40 MG PO DAILY, TAB 10/09/16 Pantoprazole (Protonix) 40 Mg Tabec, 40 MG PO DAILY, TAB 10/09/16 Metformin* (Glucophage*) 1,000 Mg Tablet, 1000 MG PO BID, #60 TAB 10/09/16 Levothyroxine Sodium* (Synthroid*) 150 Mcg Tablet, 150 MCG PO BEFORE BREAKFAST, #30 TAB 10/09/16 Insulin Glargine* (Lantus*) 100 Unit/Ml Soln, 25 UNIT SC QHS, #1 VIAL 10/09/16 Hydrocodone/Acetaminophen ([place] 5-325 Tablet) 1 Each Tablet, 1 EACH PO Q6 Y for PAIN, TAB 10/09/16 Albuterol Sulfate (Proair Respiclick) 90 Mcg Aer.pow.ba, 2 PUFFS INHALATION Q4 Y for WHEEZING, BOTTLE MED FROM HOME 10/09/16 Prednisone* (Prednisone*) 5 Mg Tab, 5 MG PO DAILY, TAB 01/28/16 Duloxetine Hcl* (Duloxetine Hcl*) 60 Mg Capsule.dr, 60 MG PO BID, #30 CAP 01/28/16 Discontinued Reported Medications Miscellaneous* PUMP (Miscellaneous* PUMP) 1 Each Pump.resvr, 2 MG . DIRECTED, EA 10/09/16 Clonidine Hcl* (Clonidine Hcl*) 0.1 Mg Tab, 0.1 MG PO, TAB 10/09/16 Acetaminophen* (Tylenol*) 325 Mg Tablet, 650 MG PO Q4H Y for MILD PAIN LEVEL 1-3 , TAB 10/09/16 Simvastatin* (Zocor*) 20 Mg Tablet, 20 MG PO QHS, #30 TAB 10/09/16 Gabapentin* (Neurontin*) 100 Mg Capsule, 100 MG PO DAILY, #90 CAP 10/09/16 Levothyroxine Sodium* (Levothyroxine Sodium*) 137 Mcg Tablet, 150 MCG PO DAILY 01/07/13 Allergies Allergies: Coded Allergies: sulfamethoxazole (Unverified Allergy, Mild, 12/06/16) trimethoprim (Unverified Allergy, Mild, 12/06/16) PMhx/Soc Reviewed in chart. As per HPI. History of Surgery: Yes (HERNIA, HYSTERECTOMY, APPENDECTOMY, CHOLECYSTECTOMY, & BACK SURGERY) Anesthesia Reaction: No Hx Neurological Disorder: No Hx Respiratory Disorders: Yes (ASTHMA) Hx Cardiac Disorders: Yes (HTN) Hx Psychiatric Problems: No Hx Miscellaneous Medical Probl: Yes (DM, inc cholesterol, thyroid dx) Hx Alcohol Use: No Hx Substance Use: No Hx Tobacco Use: No Smoking Status: Never smoker FmHx Reviewed in chart. Not relevant to presenting complaint. Physical Exam Vitals Vital Signs Date Time Temp Pulse Resp B/P Pulse Ox O2 Delivery O2 Flow Rate FiO2 12/06/16 19:27 84 15 156/73 98 Room Air 12/06/16 16:25 98.5 111 20 174/92 97 Physical Exam Const: ALert, moderate distress Head: Atraumatic Eyes: Normal Conjunctiva ENT: Normal External Ears, Nose and Mouth. Neck: Full range of motion. Nontender. No JVD Resp: Clear to auscultation bilaterally Cardio: Regular rate and rhythm, no murmurs Abd: Soft, obese. Mild distention. BS present. Colostomy left upper quadrant. Mucosa pink no skin changes. Mild generalized tenderness, localizes superiorly and medially to the stoma. No hernia. No rebound or guarding. Skin: No petechiae or rashes Back: No midline or flank tenderness Ext: No cyanosis, or edema Neur: Awake and alert. No focal deficit observed. Psych: Normal Mood and Affect Result Diagram: 12/07/16 0540 12/07/16 0540 Results 24 hrs Laboratory Tests Test 12/06/16 19:10 12/06/16 19:15 12/06/16 19:34 Urine Color YELLOW Urine Clarity CLEAR Urine pH 5.5 Urine Specific Angela 1.025 Urine Ketones NEGATIVE Urine Nitrite NEGATIVE Urine Bilirubin NEGATIVE Urine Urobilinogen 1.0 E.U./dL Urine Leukocyte Esterase TRACE Urine Microscopic RBC 0-2/HPF Urine Microscopic WBC 2-5/HPF Urine Squamous Epithelial Cells FEW Urine Bacteria RARE Urine Hyaline Casts FEW Urine Hemoglobin NEGATIVE Urine Glucose NEGATIVE% Urine Total Protein TRACE White Blood Count 11.910^3/ul Red Blood Count 4.1610^6/ul Hemoglobin 11.7g/dl Hematocrit 36.8% Mean Corpuscular Volume 88.5fl Mean Corpuscular Hemoglobin 28.1pg Mean Corpuscular Hemoglobin Concent 31.8g/dl Red Cell Distribution Width 17.7% Platelet Count 00419^3/UL Mean Platelet Volume 8.1fl Neutrophils % 86.0% Lymphocytes % 9.0% Monocytes % 4.1% Eosinophils % 0.3% Basophils % 0.2% Nucleated Red Blood Cells % 0.0/100WBC Neutrophils # 10.210^3/ul Lymphocytes # 1.110^3/ul Monocytes # 0.510^3/ul Eosinophils # 0.010^3/ul Basophils # 0.010^3/ul Nucleated Red Blood Cells # 0.010^3/ul Sodium Level 143mmol/L Potassium Level 3.9mmol/L Chloride Level 105mmol/L Carbon Dioxide Level 27mmol/L Anion Gap 15 Blood Urea Nitrogen 22mg/dl Creatinine 0.55mg/dl Glucose Level 281mg/dl Calcium Level 9.7mg/dl Total Bilirubin 0.2mg/dl Direct Bilirubin 0.00mg/dl Indirect Bilirubin 0.2mg/dl Aspartate Amino Transf (AST/SGOT) 23IU/L Alanine Aminotransferase (ALT/SGPT) 27IU/L Alkaline Phosphatase 155IU/L Total Protein 7.9g/dl Albumin 4.7g/dl Globulin 3.20g/dl Albumin/Globulin Ratio 1.46 Lipase 40U/L Bedside Glucose 290mg/dL Current Medications Medications (Trade) Dose Ordered Sig/Moose Route PRN Reason Start Time Stop Time Status Last Admin Dose Admin Sodium Chloride (NS) 1,000 ml @ 1,000 mls/hr Q1H STAT IV 12/06/16 19:06 12/06/16 20:05 DC 12/06/16 19:22 Morphine Sulfate (morphine) 4 mg ONCE STAT IV 12/06/16 19:06 12/06/16 19:09 DC 12/06/16 19:21 Ondansetron HCl (Zofran Inj) 4 mg ONCE STAT IV 12/06/16 19:06 12/06/16 19:09 DC 12/06/16 19:21 IV Flush 10 ml 10 ml STK-MED ONCE .ROUTE 12/06/16 19:58 12/06/16 19:59 DC 12/06/16 20:22 Sodium Chloride (NS) 100 ml @ ud STK-MED ONCE .ROUTE 12/06/16 19:58 12/06/16 19:59 DC 6/6/17 20:22 Iohexol (Omnipaque 300mg/ ml) 150 ml FilmmortalK-MED ONCE .ROUTE 12/06/16 19:58 12/06/16 19:59 DC 12/06/16 20:22 PROCEDURE: CT scan of the abdomen and pelvis with IV contrast. CLINICAL INDICATION: Abdominal pain. TECHNIQUE: Thin section axial, coronal and sagittal images were performed through the abdomen and pelvis following uncomplicated intravenous administration of 90 ccs of Omnipaque-300 contrast. A note left by the technologist states of the patient's colostomy bag fell loose during the course of the examination due to over filling. Radiation Dose: CTDI: 11.1 and DLP: 574.1 One or more of the following dose reduction techniques were used: - Automated exposure control. - Adjustment of the mA and/or kV according to patient size. Use of iterative reconstruction technique. COMPARISON: CT scan of the abdomen pelvis 10/31/2016. FINDINGS: Soft tissues: There are postsurgical changes associated with a midline lower abdominal scar which extends to the midline of the pelvis. No associated abscess is noted. There is a small associated umbilical hernia which contains only fat. Lungs and pleural spaces: There is plate-like atelectasis in the medial aspect of the right lower lobe. There is peripheral compressive atelectasis in the right and left lower lobes. There is plate-like atelectasis in the dorsal lingula. There is plate-like atelectasis in the medial aspect of the left lower lobe. No pulmonary nodule or acute infiltrate is identified. Heart: The heart is enlarged. No pericardial effusion is identified. The liver, common bile duct and gallbladder: There is mild-moderate intrahepatic biliary ductal dilatation and dilatation of the extrahepatic common bile duct which measures up to 1.3 cm. This at least secondary to prior cholecystectomy with clips identified in the rajesh hepatis area. There is fluid in the adjacent duodenum. No hepatic mass is identified. There is diffuse fatty infiltration of the liver which is enlarged measuring 16.9 cm AP. Gastrointestinal: There is a large hiatal hernia which is unchanged compared to the prior study. The stomach contains fluid air and particulate matter. The small bowel loops contain fluid but are not organized. These measure up to 2.3 cm in diameter. There is a midline scar from earlier abdominal surgery with stranding adjacent to the scar believed related to postsurgical change. There is a double barrel colostomy exiting the anterior left lower abdominal wall. There is some stranding in the surrounding fat or the colostomy exits the anterior abdominal wall. This appears less severe than on the prior study. The mucosal thickening of the exiting colonic bowel loops at this level also appears less severe on today's exam. There is no abscess in the area. There is fecal material in the cecum, ascending colon and remaining portions of the proximal transverse colon. There is some radiopaque contrast in the residual portions of the distal transverse colon. There are diverticula in the descending colon and sigmoid colon. There are some inflammatory changes in mucosal thickening associated with diverticulitis in the sigmoid colon. Previously, a diverticular abscess was noted surrounded by is phlegmonous change. The prior overall area measured about 2.1 cm by 2.4 cm with the smaller central component of the abscess measuring 1 cm. The surrounding wall of the abscess is now smaller with phlegmonous changes measuring about 2.4 x 1.5 cm. The more central portion of the abscess measures 1 cm x 0.6 cm. There is an anastomotic suture line in the distal sigmoid colon related to prior surgery. This is also seen on the prior study but appears less severe. There is fecal material in the rectal ampulla. Pancreas: The pancreas and main pancreatic duct are unremarkable. No pancreatic mass or pseudocyst is identified. Kidneys, bladder and adrenal glands : The adrenal glands are normal. There is no evidence of hydronephrosis involving either kidney. There is a benign cyst in the dorsal lower middle third of the left kidney. The right kidney is unremarkable. There was some focal thickening of the lower dorsal wall of the urinary bladder adjacent to the contrast filled diverticula arising off the inflamed portion of the sigmoid colon on the prior study. A colovesical fistula is was suspected. No air is identified in the urinary bladder at this time. The cystogram can be performed if indicated clinically to rule out a residual sinus tract or fistula associated with the urinary bladder. This may have resolved over the interval. Spleen: Normal. Lymph nodes: Normal. Reproductive system and pelvis : The uterus and ovaries are not visualized. No free fluid is noted in the pelvis and no abnormal adnexal mass is noted. Bony elements: There is a prior bilateral laminectomy at L4. There is a encapsulated 2.9 cm sagittal by 1.7 cm AP by 1.3 cm transverse fluid collection dorsal to the thecal sac which is unchanged. There are compression fractures at T11, 02/12, L2 and L3 which are unchanged. There are extensive degenerative changes of the thoracic and lumbar spine with vacuum disk phenomenon noted between some of the lower thoracic and several of the lumbar intervertebral disk spaces. There is narrowing of the neural canal associated with a broad disk bulge and degenerative changes in the facets at L2-3 resulting in a combined soft tissue and bony central canal stenosis. There are bilateral bony nerve root canal stenosis at L4-5. There is a 6.6 mm right lateral disk herniation. There is a combined bony and soft tissue neural canal stenosis at L5-S1. There are degenerative changes in the articular facets at this level. There is a bony right L5-S1 nerve root canal stenosis. There is moderately severe narrowing of the left L5-S1 nerve root canal. Vasculature: There are atherosclerotic vascular calcifications in the abdominal aorta, common iliac arteries and internal and external iliac arteries. IMPRESSION: 1. Acute sigmoid diverticulitis with a microperforation noted along the left lateral surface of the sigmoid colon. The small para diverticular abscess previously identified lateral to the perforated diverticulum on the CT scan dated 10/31/2016 as largely resolved with phlegmonous changes noted at the site of the earlier abscess. A 1 cm x 0.6 cm residual abscess is noted. 2. Status post partial sigmoid colectomy with residual and anastomotic suture. 3. Status post hemicolectomy with double barrel diverting colostomy over the anterior left lower abdominal wall. 4. Bibasilar atelectasis. 5. Hepatomegaly with mild moderate intrahepatic biliary ductal dilatation and with the extrahepatic common bile duct measuring 1.3 cm. These findings are associated with prior cholecystectomy. 6. Status post hysterectomy. 7. There is a large hiatal hernia which is unchanged when compared to 2016. 8. The previously identified colovesical fistula with bladder wall thickening and air in the urinary bladder is no longer clearly identified. A cystogram can be performed if clinically indicated to confirm healing. 9. There are old compression fractures at T11, T12, L2, and L3. There are postsurgical changes from a laminectomy at L4. 10. There is an encapsulated fluid collection dorsal to the thecal sac at the L4 laminectomy site measuring 1.7 cm by 1.3 cm x 2.9 cm in length. A seroma, hematoma, or less likely, abscess or pseudomeningocele are differential considerations. This finding is unchanged. There is no radiographic evidence of osteomyelitis. Findings were discussed with Dr. Holland by phone. 11. Cardiomegaly. 12. Atherosclerotic vascular disease. 13. Combined bony and soft tissue canal stenosis at L3-4 associated with the compression fracture at L3, a broad disk bulge associated with dorsal spondylosis and bilateral degenerative facet arthropathy. 14. 6.6 mm right lateral disk herniation resulting in a right L4-5 nerve root canal stenosis. RPTAT:AAJJ Physician Stuart Date Time Electronically viewed and signed by Physician Stuart on 12/06/2016 21:16 JM/ Procedures/MDM DOCUMENTS REVIEWED: ED nurse, prior ED, prior ED COURSE: Normal saline 1 L. Morphine 4 mg/Zofran 4 mg IV MEDICAL DECISION MAKIN-year-old female with history of diabetes mellitus, hypothyroidism, diverticulitis status post diverting colostomy for perforation with diverticular abscess and colovesicular and colovaginal fistula presents the ED complaining of a 3 day history of increasing peristomal swelling and moderate, crampy pain. Mild hyperglycemia and dehydration but no DKA or HONK. CT findings as above. No criteria for SIRS or sepsis. Discussed with Dr. Jiménez , who recommends admission for IV antibiotics and pain management. Counseled patient of regarding diagnostic workup, diagnosis and need for admission. CALLS/CONSULTS: Time: 21:10. Dr Jiménez. Recommends admission IV antibiotics CALLS/CONSULTS: Time: 21:20. Dr Ballard. Recommends admission to med/surg Care Transferred: Time: 2122. Departure Diagnosis: Primary Impression: Acute generalized abdominal pain Additional Impressions: Diverticulitis Qualified Code: K57.20 - Diverticulitis of large intestine with perforation and abscess without bleeding Diabetes mellitus type 2 in obese Colostomy present Condition: Serious MARISSA HOLLAND MD Dec 06, 2016 20:13
--- NOTE | 2016-12-06 21:17 | RADRPT ---
PROCEDURE: CT scan of the abdomen and pelvis with IV contrast. CLINICAL INDICATION: Abdominal pain. TECHNIQUE: Thin section axial, coronal and sagittal images were performed through the abdomen and pelvis following uncomplicated intravenous administration of 90 ccs of Omnipaque-300 contrast. A not e left by the technologist states of the patient's colostomy bag fell loose during the course of the examination due to over filling. Radiation Dose: CTDI: 11.1 and DLP: 574.1 One or more of the following dose reduction techniques were used: - Automated exposure control. - Adjustment of the mA and/or kV according to patient size. Use of iterative reconstruction technique. COMPARISON: CT scan of the abdomen pelvis 10/31/2016. FINDINGS: Soft tissues: There are postsurgical changes associated with a midline lower abdominal scar which ex tends to the midline of the pelvis. No associated abscess is noted. There is a small associated um bilical hernia which contains only fat. Lungs and pleural spaces: There is plate-like atelectasis in the medial aspect of the right lower lo be. There is peripheral compressive atelectasis in the right and left lower lobes. There is plate- like atelectasis in the dorsal lingula. There is plate-like atelectasis in the medial aspect of the left lower lobe. No pulmonary nodule or acute infiltrate is identified. Heart: The heart is enlarged. No pericardial effusion is identified. The liver, common bile duct and gallbladder: There is mild-moderate intrahepatic biliary ductal dila tation and dilatation of the extrahepatic common bile duct which measures up to 1.3 [address] secondary to prior cholecystectomy with clips identified in the rajesh hepatis area. There is flu id in the adjacent duodenum. No hepatic mass is identified. There is diffuse fatty infiltration of the liver which is enlarged measuring 16.9 cm AP. Gastrointestinal: There is a large hiatal hernia which is unchanged compared to the prior study. Th e stomach contains fluid air and particulate matter. The small bowel loops contain fluid but are no t organized. These measure up to 2.3 cm in diameter. There is a midline scar from earlier abdominal surgery with stranding adjacent to the scar believed related to postsurgical change. There is a double barrel colostomy exiting the anterior left lower abdominal wall. There is some st randing in the surrounding fat or the colostomy exits the anterior abdominal wall. This appears les s severe than on the prior study. The mucosal thickening of the exiting colonic bowel loops at this level also appears less severe on today's exam. There is no abscess in the area. There is fecal material in the cecum, ascending colon and remaining portions of the proximal transve rse colon. There is some radiopaque contrast in the residual portions of the distal transverse colo n. There are diverticula in the descending colon and sigmoid colon. There are some inflammatory ch anges in mucosal thickening associated with diverticulitis in the sigmoid colon. Previously, a diverticular abscess was noted surrounded by is phlegmonous change. The prior overall area measured about 2.1 cm by 2.4 cm with the smaller central component of the abscess measuring 1 cm. The surrounding wall of the abscess is now smaller with phlegmonous changes measuring about 2.4 x 1. 5 cm. The more central portion of the abscess measures 1 cm x 0.6 cm. There is an anastomotic suture line in the distal sigmoid colon related to prior surgery. This is a lso seen on the prior study but appears less severe. There is fecal material in the rectal ampulla. Pancreas: The pancreas and main pancreatic duct are unremarkable. No pancreatic mass or pseudocyst is identified. Kidneys, bladder and adrenal glands : The adrenal glands are normal. There is no evidence of hydron ephrosis involving either kidney. There is a benign cyst in the dorsal lower middle third of the le ft kidney. The right kidney is unremarkable. There was some focal thickening of the lower dorsal w all of the urinary bladder adjacent to the contrast filled diverticula arising off the inflamed port ion of the sigmoid colon on the prior study. A colovesical fistula is was suspected. No air is kenny ntified in the urinary bladder at this time. The cystogram can be performed if indicated clinically to rule out a residual sinus tract or fistula associated with the urinary bladder. This may have r esolved over the interval. Spleen: Normal. Lymph nodes: Normal. Reproductive system and pelvis : The uterus and ovaries are not visualized. No free fluid is noted in the pelvis and no abnormal adnexal mass is noted. Bony elements: There is a prior bilateral laminectomy at L4. There is a encapsulated 2.9 cm sagitta l by 1.7 cm AP by 1.3 cm transverse fluid collection dorsal to the thecal sac which is unchanged. T here are compression fractures at T11, 02/12, L2 and L3 which are unchanged. There are extensive de generative changes of the thoracic and lumbar spine with vacuum disk phenomenon noted between some o f the lower thoracic and several of the lumbar intervertebral disk spaces. There is narrowing of the neural canal associated with a broad disk bulge and degenerative changes i n the facets at L2-3 resulting in a combined soft tissue and bony central canal stenosis. There are bilateral bony nerve root canal stenosis at L4-5. There is a 6.6 mm right lateral disk he rniation. There is a combined bony and soft tissue neural canal stenosis at L5-S1. There are degenerative jitendra nges in the articular facets at this level. There is a bony right L5-S1 nerve root canal stenosis. There is moderately severe narrowing of the left L5-S1 nerve root canal. Vasculature: There are atherosclerotic vascular calcifications in the abdominal aorta, common iliac arteries and internal and external iliac arteries. IMPRESSION: 1. Acute sigmoid diverticulitis with a microperforation noted along the left lateral surface of the sigmoid colon. The small para diverticular abscess previously identified lateral to the perforated diverticulum on the CT scan dated 10/31/2016 as largely resolved with phlegmonous changes noted at the site of the earlier abscess. A 1 cm x 0.6 cm residual abscess is noted. 2. Status post partial sigmoid colectomy with residual and anastomotic suture. 3. Status post hemicolectomy with double barrel diverting colostomy over the anterior left lower ab dominal wall. 4. Bibasilar atelectasis. 5. Hepatomegaly with mild moderate intrahepatic biliary ductal dilatation and with the extrahepatic common bile duct measuring 1.3 cm. These findings are associated with prior cholecystectomy. 6. Status post hysterectomy. 7. There is a large hiatal hernia which is unchanged when compared to 10/31/2016. 8. The previously identified colovesical fistula with bladder wall thickening and air in the urina ry bladder is no longer clearly identified. A cystogram can be performed if clinically indicated to confirm healing. 9. There are old compression fractures at T11, T12, L2, and L3. There are postsurgical changes fro m a laminectomy at L4. 10. There is an encapsulated fluid collection dorsal to the thecal sac at the L4 laminectomy site m easuring 1.7 cm by 1.3 cm x 2.9 cm in length. A seroma, hematoma, or less likely, abscess or pseudo meningocele are differential considerations. This finding is unchanged. There is no radiographic e vidence of osteomyelitis. Findings were discussed with Dr. Torres by phone. 11. Cardiomegaly. 12. Atherosclerotic vascular disease. 13. Combined bony and soft tissue canal stenosis at L3-4 associated with the compression fracture a t L3, a broad disk bulge associated with dorsal spondylosis and bilateral degenerative facet arthrop athy. 14. 6.6 mm right lateral disk herniation resulting in a right L4-5 nerve root canal stenosis. RPTAT:AAJJ Physician Stuart Date Time Electronically viewed and signed by Physician Stuart on 12/06/2016 21:16 /
[2016-12-06] MEDS ORDERED: ACETAMINOPHEN 325 MG TAB PO PRN (21:30)
[2016-12-06] MEDS ORDERED: ONDANSETRON 4 MG INJ IV PRN (21:30)
[2016-12-06] MEDS ORDERED: PIPER-TAZO 3.375 GM IV (PMX) 100 ML IVPB ONE (21:30)
[2016-12-06 22:07] VITALS: PULSE 72
[2016-12-06] MEDS ORDERED: DICLOFENAC SODIUM 37.5 MG/ML VIAL IV STA (22:17)
[2016-12-06] MEDS ORDERED: GABA100C14 PO ×2 (23:23)
[2016-12-06] MEDS ORDERED: ATOR20TA38 PO (23:23)
[2016-12-06] MEDS ORDERED: ERGO500037 PO (23:32)
[2016-12-06] MEDS ORDERED: INDO25CA25 PO (23:32)
[2016-12-06] MEDS ORDERED: CYCL-319 PO (23:32)
[2016-12-06] MEDS ORDERED: TRAM-40 PO (23:32)
[2016-12-06] MEDS ORDERED: INSU100I17 SQ (23:32)
[2016-12-06] MEDS ORDERED: RANI150T5 PO (23:32)
[2016-12-06] MEDS ORDERED: [UNRECOGNIZED DRUG - CODE] PO (23:32)
[2016-12-07 00:20] VITALS: BP 142/63; RESP 18
[2016-12-07] MEDS ORDERED: ONDANSETRON 4 MG INJ IV PRN (00:30)
[2016-12-07] MEDS ORDERED: VANCOMYCIN IV PER PHARMACY XX SCH (00:30)
[2016-12-07] MEDS ORDERED: hydrALAzine 20 MG INJ IV PRN (00:30)
[2016-12-07] MEDS ORDERED: GLUCOSE GEL 15 GRAM TUBE PO PRN ×2 (00:40)
[2016-12-07] MEDS ORDERED: GLUCAGON 1 MG INJ IM PRN (00:40)
[2016-12-07] MEDS ORDERED: GLUCOSE GEL 15 GRAM TUBE BUCCAL PRN (00:40)
[2016-12-07] MEDS ORDERED: DEXTROSE 50% 50 ML SYRINGE IV PRN ×2 (00:40)
[2016-12-07] MEDS: HYDROmorphONE 1 MG/ML SYG IV PRN ×6 (00:52→21:42)
[2016-12-07] MEDS: DEXTROSE 5%-0.45% NACL 1,000 ML IV SCH ×3 (00:56→17:36)
[2016-12-07] MEDS: CEFEPIME 1GM/50 ML (PMX) 50 ML IVPB SCH ×3 (01:03→20:32)
[2016-12-07] MEDS: INSULIN ASPART [NOVOLOG] 3 ML PEN SC SCH ×4 (01:27→17:43)
[2016-12-07] MEDS: INSULIN GLARGINE [LANtus] 3 ML PEN SC SCH ×2 (01:28→20:47)
[2016-12-07] MEDS ORDERED: VANCOMYCIN 1 GM in NS 250 ML IVPB ONE (02:00)
[2016-12-07 06:16] LABS: ADD SCAN DIFF NO
[2016-12-07 06:23] LABS: BASOPHILS % 0.3 % (0.0-2.0); EOSINOPHILS # 0.1 10^3/ul (0.0-0.5); EOSINOPHILS % 0.7 % (0.0-7.0); HEMATOCRIT 29.8 % (37.0-47.0); HEMOGLOBIN 9.7 g/dl (12.0-16.0); LYMPHOCYTES # 1.5 10^3/ul (0.8-2.9); LYMPHOCYTES % 20.7 % (15.0-51.0); MEAN CORPUSCULAR HGB CONC 32.6 g/dl (32.0-37.0); MEAN CORPUSCULAR VOLUME 89.2 fl (82.0-101.0); MEAN PLATELET VOLUME 8.4 fl (7.4-10.4); MONOCYTE # 0.5 10^3/ul (0.3-0.9); MONOCYTES % 6.8 % (0.0-11.0); NEUTROPHILS % 71.1 % (39.0-77.0); PLATELET COUNT 353 10^3/UL (140-415); RED BLOOD COUNT 3.34 10^6/ul (4.20-5.40); RED CELL DISTRIBUTION WIDTH 17.6 % (11.5-14.5); WHITE BLOOD COUNT 7.1 10^3/ul (4.8-10.8)
[2016-12-07 06:56] LABS: ALBUMIN 3.6 g/dl (3.3-4.9); ALBUMIN/GLOBULIN RATIO 1.44; BILIRUBIN,INDIRECT 0.2 mg/dl (0-1.1); BILIRUBIN,TOTAL 0.2 mg/dl (0.2-1.3); CALCIUM 8.5 mg/dl (8.4-10.2); CREATININE 0.38 mg/dl (0.44-1.00); MAGNESIUM 1.7 mg/dl (1.7-2.5); PHOSPHORUS 2.9 mg/dl (2.5-4.9); POTASSIUM 3.5 mmol/L (3.5-5.1); TOTAL PROTEIN 6.1 g/dl (6.1-8.1)
[2016-12-07 07:18] VITALS: BP 153/64; RESP 18
--- NOTE | 2016-12-07 09:28 | HP ---
Date/Time of Note Date/Time of Note DATE: 12/07/16 TIME: 09:19 Assessment/Plan Lines/Catheters IV Catheter Type (from Rust): Saline Lock Assessment/Plan Assessment/Plan IMPRESSION 1. Acute sigmoid diverticulitis with a microperforation ( patient has hx of recent diverticulitis with perforation causing diverticular abscess status post exploratory laparotomy and placement of a diverting transverse colostomy for diversion of fecal stream). The patient also has a colovesicular fistula. 2. Possible lower gastrointestinal bleeding, status post recent EGD and colonoscopy. 3. History of hypothyroidism. 4. Severe deconditioning secondary to prolonged hospitalization for diverticular abscess requiring extensive surgery and postsurgical care. 5. Diabetes mellitus. 6. Postoperative ileus. 7. 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. 8. History of total abdominal hysterectomy with vaginal bleeding. 9. History of cholecystectomy. 10. Moderate hiatal hernia. PLAN Broad spectrum abx f/u culture results ID consult Dr. Jiménez to see pt Resume home meds with adjustment as needed when no longer NPO HPI/ROS Admit Date/Time Admit Date/Time Dec 06, 2016 at 21:22 Hx of Present Illness This is a 61-year-old female who has a past medical history of cholecystectomy, history of total abdominal hysterectomy, history of asthma, history of coronary artery disease, history of previous hernia surgery and back surgery, type 2 diabetes mellitus, hypothyroidism, depression who presented with abd pain ( colostomy stoma area painful x3 days). she was discharged from [facility] a month ago after admitted for abdominal pain. At that time, she was also was complaining of vaginal bleeding. She was admitted initially on 10/04/2016 with multiple complaints. The patient had an acute diverticulitis with bowel perforation causing acute diverticular abscess. She also had a rectovaginal fistula. The patient's primary surgeon was Dr. Jiménez. The patient was taken to the OR and had exploratory laparotomy along with that diversion of colostomy that was done. The patient's postoperative course was very lengthy and prolonged secondary to postoperative ileus. She was treated with IV antibiotics. Infectious disease was following the patient. The patient also had diabetes mellitus and hyperbilirubinemia while being in the hospital. She has a mildly dilated common bile duct, for which she had a GI consultation done by Dr. Carson. The patient remained hemodynamically stable. She was continued on IV antibiotics while being in the hospital. Slowly, gradually, she improved back to her normal baseline and regained her bowel sounds. She had a followup CT abdomen and pelvis done on 10/31/2016, which shows no evidence of any obstruction or abscess. The patient still has colovesicular fistula and, during this hospitalization, she had episode of vaginal bleeding for which a [facility] consultation was done, but there was no surgical recommendation obtained from the [facility]. They recommended to treat it conservatively. She slowly and gradually back to her normal baseline status. She received almost 1 month of IV antibiotics while being in the hospital. She was set up for a senior living placement upon discharge and she was discharged to [facility] nursing facility with 2 weeks course of p.o. antibiotics upon discharge. Now pt is returning to ED with colostomy stoma area painful x3 days. ED course: WBC 12,000. BP 174/92 with HR of 111, afebrile. CT abd/pelvis showed the followin. Acute sigmoid diverticulitis with a microperforation noted along the left lateral surface of the sigmoid colon. The small para diverticular abscess previously identified lateral to the perforated diverticulum on the CT scan dated 10/31/2016 as largely resolved with phlegmonous changes noted at the site of the earlier abscess. A 1 cm x 0.6 cm residual abscess is noted. 2. Status post partial sigmoid colectomy with residual and anastomotic suture. 3. Status post hemicolectomy with double barrel diverting colostomy over the anterior left lower abdominal wall. 4. Bibasilar atelectasis. 5. Hepatomegaly with mild moderate intrahepatic biliary ductal dilatation and with the extrahepatic common bile duct measuring 1.3 cm. These findings are associated with prior cholecystectomy. 6. Status post hysterectomy. 7. There is a large hiatal hernia which is unchanged when compared to 2016. 8. The previously identified colovesical fistula with bladder wall thickening and air in the urinary bladder is no longer clearly identified. A cystogram can be performed if clinically indicated to confirm healing. 9. There are old compression fractures at T11, T12, L2, and L3. There are postsurgical changes from a laminectomy at L4. 10. There is an encapsulated fluid collection dorsal to the thecal sac at the L4 laminectomy site measuring 1.7 cm by 1.3 cm x 2.9 cm in length. A seroma, hematoma, or less likely, abscess or pseudomeningocele are differential considerations. This finding is unchanged. There is no radiographic evidence of osteomyelitis. Findings were discussed with Dr. Torres by phone. 11. Cardiomegaly. 12. Atherosclerotic vascular disease. 13. Combined bony and soft tissue canal stenosis at L3-4 associated with the compression fracture at L3, a broad disk bulge associated with dorsal spondylosis and bilateral degenerative facet arthropathy. 14. 6.6 mm right lateral disk herniation resulting in a right L4-5 nerve root canal stenosis. PMH/Family/Social Past Surgical History Past Surgical Hx: appendectomy, cholecystectomy Social History Smoking Status: Former smoker Exam/Review of Systems Vital Signs Vitals Vital Signs Date Time Temp Pulse Resp B/P Pulse Ox O2 Delivery O2 Flow Rate FiO2 12/07/16 07:18 98.4 57 18 153/64 96 12/06/16 22:07 Room Air Intake and Output 12/06/16 12/06/16 12/07/16 15:00 23:00 07:00 Intake Total 400 ml Balance 400 ml Labs Result Diagram: 12/07/16 0540 12/07/16 0540 Medications Medications Current Medications Cefepime HCl (Maxipime 1gm/50 ml (Pmx)) 50 ml @ 100 mls/hr Q12 IVPB Last administered on 12/07/16 01:03; Admin Dose 100 MLS/HR; Start 12/07/16 at 00:30 Hydromorphone HCl (Dilaudid) 1 mg Q3H PRN IV PAIN Last administered on 06:30; Admin Dose 1 MG; Start 12/07/16 at 00:30 Ondansetron HCl (Zofran Inj) 4 mg Q6H PRN IV NAUSEA AND/OR VOMITING; Start 12/07 at 00:30 Famotidine (Pepcid Iv) 20 mg Q12 IV ; Start 12/07/16 at 09:00 Hydralazine HCl (Apresoline) 10 mg Q4H PRN IV ELEVATED SYSTOLIC BP; Start at 00:30 Insulin Glargine (Lantus) 10 unit HS SC Last administered on 12/07/16 01:28; Admin Dose 10 UNIT; Start 12/07/16 at 21:00 Insulin Aspart (Novolog Insulin Pen) NOVOLOG *MODERATE* ALGORI... Q6 SC Last administered on 12/07/16 06:37; Admin Dose 2 UNIT; Start 12/07/16 at 00:30 Miscellaneous Information 1 ea NOTE XX ; Start 12/07/16 at 00:40 Glucose (Glutose) 15 gm Q15M PRN PO DECREASED GLUCOSE; Start 12/07/16 at 00:40 Glucose (Glutose) 22.5 gm Q15M PRN PO DECREASED GLUCOSE; Start 12/07/16 at 00:40 Dextrose (D50w Syringe) 25 ml Q15M PRN IV DECREASED GLUCOSE; Start 12/07/16 at 00:40 Dextrose (D50w Syringe) 50 ml Q15M PRN IV DECREASED GLUCOSE; Start 12/07/16 at 00:40 Glucagon (Glucagen) 1 mg Q15M PRN IM DECREASED GLUCOSE; Start 12/07/16 at 00:40 Glucose 15 gm 15 gm Q15M PRN BUCCAL DECREASED GLUCOSE; Start 12/07/16 at 00:40 Vancomycin HCl 750 mg/Sodium Chloride 150 ml @ 75 mls/hr Q12H IVPB ; Start 12/07 at 14:00 Dextrose/Sodium Chloride (D5-1/2ns) 1,000 ml @ 100 mls/hr Q10H IV Last administered on 12/07/16 00:56; Admin Dose 100 MLS/HR; Start 12/07/16 at 01:00 Miscellaneous Information (*Rx Drug Level Order Reminder*) VANCOMYCIN TROUGH 12/08 AT 1300 ONCE ONCE XX ; Start 12/08/16 at 13:00; Stop 12/08/16 at 13:01 MOY LEIVA MD Dec 07, 2016 09:28
[2016-12-07] MEDS: FAMOTIDINE 20 MG INJ IV SCH ×2 (09:36→20:31)
[2016-12-07] MEDS: VANCOMYCIN 750 MG in SOD CHLORIDE 0.9% 150 ML IVPB SCH (15:00)
--- NOTE | 2016-12-07 15:45 | PN ---
Date/Time of Note Date/Time of Note DATE: 12/07/16 TIME: 15:43 Assessment/Plan VTE Prophylaxis VTE Prophylaxis Intervention: LMWH Lines/Catheters IV Catheter Type (from Nrs): Peripheral IV Assessment/Plan Chief Complaint/Hosp Course Subjective: Events noted Objective: Vital signs stable Physical exam No pallor icterus Regular Clear Bs diminished, mild tender, nondistended No edema Assessment and plan 1. Acute sigmoid diverticulitis with microperforation. Stable continue n.p.o./ IV fluids/antibiotics. Appreciate surgical assistance. 2. Chronic diverticulitis with recent history of intra-abd abscess 3. Diabetes/metabolic syndrome 4. Anemia 5. Floweree-vesicular fistula 6. Compression fracture status; lumbar/ thoracic 7. Past tobacco 8. Chronic CAD 9. Chronic asthma 10.Chronic hypothyroidism Problems: Exam/Review of Systems Vital Signs Vitals Vital Signs Date Time Temp Pulse Resp B/P Pulse Ox O2 Delivery O2 Flow Rate FiO2 12/07/16 07:18 98.4 57 18 153/64 96 12/06/16 22:07 Room Air Intake and Output 12/06/16 12/06/16 12/07/16 15:00 23:00 07:00 Intake Total 400 ml Balance 400 ml Results Result Diagram: 12/07/16 0540 12/07/16 0540 Results 24 hrs Laboratory Tests Test 12/06/16 19:10 12/06/16 19:15 12/06/16 19:34 12/07/16 01:22 Urine Color YELLOW Urine Clarity CLEAR Urine pH 5.5 Urine Specific [place] 1.025 Urine Ketones NEGATIVE Urine Nitrite NEGATIVE Urine Bilirubin NEGATIVE Urine Urobilinogen 1.0 E.U./dL Urine Leukocyte Esterase TRACE H Urine Microscopic RBC 0-2 Urine Microscopic WBC 2-5 Urine Squamous Epithelial Cells FEW Urine Bacteria RARE Urine Hyaline Casts FEW Urine Hemoglobin NEGATIVE Urine Glucose NEGATIVE Urine Total Protein TRACE White Blood Count 11.9 #H Red Blood Count 4.16 L Hemoglobin 11.7 L Hematocrit 36.8 L Mean Corpuscular Volume 88.5 Mean Corpuscular Hemoglobin 28.1 L Mean Corpuscular Hemoglobin Concent 31.8 L Red Cell Distribution Width 17.7 H Platelet Count 440 H Mean Platelet Volume 8.1 Neutrophils % 86.0 H Lymphocytes % 9.0 L Monocytes % 4.1 Eosinophils % 0.3 Basophils % 0.2 Nucleated Red Blood Cells % 0.0 Neutrophils # 10.2 H Lymphocytes # 1.1 Monocytes # 0.5 Eosinophils # 0.0 Basophils # 0.0 Nucleated Red Blood Cells # 0.0 Sodium Level 143 Potassium Level 3.9 Chloride Level 105 Carbon Dioxide Level 27 Anion Gap 15 Blood Urea Nitrogen 22 H Creatinine 0.55 Glucose Level 281 H Calcium Level 9.7 Total Bilirubin 0.2 Direct Bilirubin 0.00 Indirect Bilirubin 0.2 Aspartate Amino Transf (AST/SGOT) 23 Alanine Aminotransferase (ALT/SGPT) 27 Alkaline Phosphatase 155 H Total Protein 7.9 Albumin 4.7 Globulin 3.20 Albumin/Globulin Ratio 1.46 Lipase 40 Bedside Glucose 290 H 234 H Test 12/07/16 05:40 12/07/16 06:33 12/07/16 12:03 White Blood Count 7.1 # Red Blood Count 3.34 L Hemoglobin 9.7 L Hematocrit 29.8 L Mean Corpuscular Volume 89.2 Mean Corpuscular Hemoglobin 29.0 Mean Corpuscular Hemoglobin Concent 32.6 Red Cell Distribution Width 17.6 H Platelet Count 353 Mean Platelet Volume 8.4 Neutrophils % 71.1 Lymphocytes % 20.7 Monocytes % 6.8 Eosinophils % 0.7 Basophils % 0.3 Nucleated Red Blood Cells % 0.0 Neutrophils # 5.0 Lymphocytes # 1.5 Monocytes # 0.5 Eosinophils # 0.1 Basophils # 0.0 Nucleated Red Blood Cells # 0.0 Sodium Level 140 Potassium Level 3.5 Chloride Level 110 Carbon Dioxide Level 26 Anion Gap 8 Blood Urea Nitrogen 17 Creatinine 0.38 L Glucose Level 141 # Calcium Level 8.5 Phosphorus Level 2.9 Magnesium Level 1.7 Total Bilirubin 0.2 Direct Bilirubin 0.00 Indirect Bilirubin 0.2 Aspartate Amino Transf (AST/SGOT) 14 L Alanine Aminotransferase (ALT/SGPT) 22 Alkaline Phosphatase 103 Total Protein 6.1 # Albumin 3.6 # Globulin 2.50 Albumin/Globulin Ratio 1.44 Bedside Glucose 146 103 Medications Medications Current Medications Cefepime HCl (Maxipime 1gm/50 ml (Pmx)) 50 ml @ 100 mls/hr Q12 IVPB Last administered on 12/07/16 09:36; Admin Dose 100 MLS/HR; Start 12/07/16 at 00:30 Hydromorphone HCl (Dilaudid) 1 mg Q3H PRN IV PAIN Last administered on 15:00; Admin Dose 1 MG; Start 12/07/16 at 00:30 Ondansetron HCl (Zofran Inj) 4 mg Q6H PRN IV NAUSEA AND/OR VOMITING; Start 12/07 at 00:30 Famotidine (Pepcid Iv) 20 mg Q12 IV Last administered on 12/07/16 09:36; Admin Dose 20 MG; Start 12/07/16 at 09:00 Hydralazine HCl (Apresoline) 10 mg Q4H PRN IV ELEVATED SYSTOLIC BP; Start at 00:30 Insulin Glargine (Lantus) 10 unit HS SC Last administered on 12/07/16 01:28; Admin Dose 10 UNIT; Start 12/07/16 at 21:00 Insulin Aspart (Novolog Insulin Pen) NOVOLOG *MODERATE* ALGORI... Q6 SC Last administered on 12/07/16 06:37; Admin Dose 2 UNIT; Start 12/07/16 at 00:30 Miscellaneous Information 1 ea NOTE XX ; Start 12/07/16 at 00:40 Glucose (Glutose) 15 gm Q15M PRN PO DECREASED GLUCOSE; Start 12/07/16 at 00:40 Glucose (Glutose) 22.5 gm Q15M PRN PO DECREASED GLUCOSE; Start 12/07/16 at 00:40 Dextrose (D50w Syringe) 25 ml Q15M PRN IV DECREASED GLUCOSE; Start 12/07/16 at 00:40 Dextrose (D50w Syringe) 50 ml Q15M PRN IV DECREASED GLUCOSE; Start 12/07/16 at 00:40 Glucagon (Glucagen) 1 mg Q15M PRN IM DECREASED GLUCOSE; Start 12/07/16 at 00:40 Glucose 15 gm 15 gm Q15M PRN BUCCAL DECREASED GLUCOSE; Start 12/07/16 at 00:40 Vancomycin HCl 750 mg/Sodium Chloride 150 ml @ 75 mls/hr Q12H IVPB Last administered on 12/07/16 15:00; Admin Dose 75 MLS/HR; Start 12/07/16 at 14:00 Dextrose/Sodium Chloride (D5-1/2ns) 1,000 ml @ 100 mls/hr Q10H IV Last administered on 12/07/16 00:56; Admin Dose 100 MLS/HR; Start 12/07/16 at 01:00 Miscellaneous Information (*Rx Drug Level Order Reminder*) VANCOMYCIN TROUGH 12/08 AT 1300 ONCE ONCE XX ; Start 12/08/16 at 13:00; Stop 12/08/16 at 13:01 JC BRITO MD Dec 07, 2016 15:45
[2016-12-07] MEDS ORDERED: CLONIDINE 0.1 MG/24 HR PATCH TRANSDERM SCH (18:00)
[2016-12-07 19:40] VITALS: BP 167/70; RESP 20
[2016-12-08] MEDS: HYDROmorphONE 1 MG/ML SYG IV PRN ×8 (01:30→23:56)
[2016-12-08] MEDS: VANCOMYCIN 750 MG in SOD CHLORIDE 0.9% 150 ML IVPB SCH (01:32)
[2016-12-08 05:31] LABS: ADD SCAN DIFF NO
[2016-12-08 05:57] LABS: BASOPHILS % 0.7 % (0.0-2.0); EOSINOPHILS # 0.2 10^3/ul (0.0-0.5); EOSINOPHILS % 2.7 % (0.0-7.0); HEMATOCRIT 31.2 % (37.0-47.0); HEMOGLOBIN 9.9 g/dl (12.0-16.0); LYMPHOCYTES % 33.7 % (15.0-51.0); MEAN CORPUSCULAR HEMOGLOBIN 28.3 pg (29.0-33.0); MEAN CORPUSCULAR HGB CONC 31.7 g/dl (32.0-37.0); MEAN CORPUSCULAR VOLUME 89.1 fl (82.0-101.0); MEAN PLATELET VOLUME 8.4 fl (7.4-10.4); MONOCYTE # 0.4 10^3/ul (0.3-0.9); MONOCYTES % 6.9 % (0.0-11.0); NEUTROPHIL # 3.3 10^3/ul (1.6-7.5); NEUTROPHILS % 55.8 % (39.0-77.0); PLATELET COUNT 362 10^3/UL (140-415); RED CELL DISTRIBUTION WIDTH 17.5 % (11.5-14.5)
[2016-12-08] MEDS: INSULIN ASPART [NOVOLOG] 3 ML PEN SC SCH ×4 (06:00→17:36)
[2016-12-08 06:01] LABS: INR 1.05; PROTIME 13.7 Sec (12.2-14.2); PT RATIO 1.1
[2016-12-08 06:13] LABS: ALBUMIN 3.3 g/dl (3.3-4.9); ALBUMIN/GLOBULIN RATIO 1.17; BILIRUBIN,INDIRECT 0.1 mg/dl (0-1.1); BILIRUBIN,TOTAL 0.1 mg/dl (0.2-1.3); CALCIUM 9.1 mg/dl (8.4-10.2); CREATININE 0.36 mg/dl (0.44-1.00); MAGNESIUM 1.6 mg/dl (1.7-2.5); PHOSPHORUS 3.4 mg/dl (2.5-4.9); TOTAL PROTEIN 6.1 g/dl (6.1-8.1)
[2016-12-08 06:15] LABS: POTASSIUM 2.8 mmol/L (3.5-5.1)
[2016-12-08 06:42] LABS: THYROID STIMULATING HORMONE 3.62 MIU/L (0.465-4.680)
[2016-12-08] MEDS: DEXTROSE 5%-0.45% NACL 1,000 ML IV SCH ×2 (06:51→08:24)
[2016-12-08] MEDS ORDERED: POTASSIUM CHLORIDE 250 ML IVPB ONE (07:30)
[2016-12-08 08:28] VITALS: BP 160/70; RESP 20
[2016-12-08] MEDS: FAMOTIDINE 20 MG INJ IV SCH (08:32)
[2016-12-08] MEDS: ENOXAPARIN 40 MG/0.4 ML SYG SC SCH (09:05)
[2016-12-08] MEDS ORDERED: MAGNESIUM SULFATE 3 GM in SOD CHLORIDE 0.9% 100 ML IVPB ONE (10:30)
[2016-12-08] MEDS: CEFEPIME 1GM/50 ML (PMX) 50 ML IVPB SCH (11:08)
--- NOTE | 2016-12-08 14:00 | PN ---
Date/Time of Note Date/Time of Note DATE: 12/08/16 TIME: 13:57 Assessment/Plan VTE Prophylaxis VTE Prophylaxis Intervention: LMWH Lines/Catheters IV Catheter Type (from Nrs): Peripheral IV Assessment/Plan Chief Complaint/Hosp Course S: 6/7 events noted 12/08 feels better. Updated regarding the nature of diverticular disease. O: vss PE No pallor icterus Regular Clear Bs diminished, min tender, nondistended No edema A/P 1. Acute sigmoid diverticulitis w microperforation. Stable cont npo/IVf/ antibiotics. Appreciate GI/surgical assistance. 2. Chr diverticulitis w recent Ex lapy, I&D of pelvic abscess and diverting colostomy; additionally intra-abd abscess-was on antibiotics for maybe . 3. Diabetes/metabolic syndrome 4. Anemia 5. [place]-vesicular fistula; healed? 6. Compression fracture status; lumbar/ thoracic 7. Past tobacco 8. Chronic CAD 9. Chronic asthma 10.Chronic hypothyroidism Problems: Exam/Review of Systems Vital Signs Vitals Vital Signs Date Time Temp Pulse Resp B/P Pulse Ox O2 Delivery O2 Flow Rate FiO2 12/08/16 08:28 98.8 55 20 160/70 98 12/06/16 22:07 Room Air Intake and Output 12/07/16 12/07/16 12/08/16 15:00 23:00 07:00 Intake Total 50 ml 1100 ml 1050 ml Balance 50 ml 1100 ml 1050 ml Results Result Diagram: 12/08/16 0511 12/08/16 0511 Results 24 hrs Laboratory Tests Test 12/07/16 17:43 12/07/16 20:23 12/07/16 23:23 12/08/16 05:11 Bedside Glucose 94 103 93 White Blood Count 6.0 Red Blood Count 3.50 L Hemoglobin 9.9 L Hematocrit 31.2 L Mean Corpuscular Volume 89.1 Mean Corpuscular Hemoglobin 28.3 L Mean Corpuscular Hemoglobin Concent 31.7 L Red Cell Distribution Width 17.5 H Platelet Count 362 Mean Platelet Volume 8.4 Neutrophils % 55.8 Lymphocytes % 33.7 Monocytes % 6.9 Eosinophils % 2.7 Basophils % 0.7 Nucleated Red Blood Cells % 0.0 Neutrophils # 3.3 Lymphocytes # 2.0 Monocytes # 0.4 Eosinophils # 0.2 Basophils # 0.0 Nucleated Red Blood Cells # 0.0 Prothrombin Time 13.7 Prothrombin Time Ratio 1.1 INR International Normalized Ratio 1.05 Sodium Level 142 Potassium Level 2.8 *L Chloride Level 110 Carbon Dioxide Level 27 Anion Gap 8 Blood Urea Nitrogen 6 #L Creatinine 0.36 L Glucose Level 88 # Hemoglobin A1c 6.5 H Calcium Level 9.1 Phosphorus Level 3.4 Magnesium Level 1.6 L Total Bilirubin 0.1 L Direct Bilirubin 0.00 Indirect Bilirubin 0.1 Aspartate Amino Transf (AST/SGOT) 17 Alanine Aminotransferase (ALT/SGPT) 33 Alkaline Phosphatase 104 Total Protein 6.1 Albumin 3.3 Globulin 2.80 Albumin/Globulin Ratio 1.17 Thyroid Stimulating Hormone (TSH) 3.620 Test 12/08/16 06:27 12/08/16 12:19 Bedside Glucose 96 93 Medications Medications Current Medications Cefepime HCl (Maxipime 1gm/50 ml (Pmx)) 50 ml @ 100 mls/hr Q12 IVPB Last administered on 12/08/16 11:08; Admin Dose 100 MLS/HR; Start 12/07/16 at 00:30 Hydromorphone HCl (Dilaudid) 1 mg Q3H PRN IV PAIN Last administered on 11:07; Admin Dose 1 MG; Start 12/07/16 at 00:30 Ondansetron HCl (Zofran Inj) 4 mg Q6H PRN IV NAUSEA AND/OR VOMITING; Start 12/07 at 00:30 Famotidine (Pepcid Iv) 20 mg Q12 IV Last administered on 12/08/16 08:32; Admin Dose 20 MG; Start 12/07/16 at 09:00 Hydralazine HCl (Apresoline) 10 mg Q4H PRN IV ELEVATED SYSTOLIC BP; Start at 00:30 Insulin Glargine (Lantus) 10 unit HS SC Last administered on 12/07/16 20:47; Admin Dose 10 UNIT; Start 12/07/16 at 21:00 Insulin Aspart (Novolog Insulin Pen) NOVOLOG *MODERATE* ALGORI... Q6 SC Last administered on 12/07/16 06:37; Admin Dose 2 UNIT; Start 12/07/16 at 00:30 Miscellaneous Information 1 ea NOTE XX ; Start 12/07/16 at 00:40 Glucose (Glutose) 15 gm Q15M PRN PO DECREASED GLUCOSE; Start 12/07/16 at 00:40 Glucose (Glutose) 22.5 gm Q15M PRN PO DECREASED GLUCOSE; Start 12/07/16 at 00:40 Dextrose (D50w Syringe) 25 ml Q15M PRN IV DECREASED GLUCOSE; Start 12/07/16 at 00:40 Dextrose (D50w Syringe) 50 ml Q15M PRN IV DECREASED GLUCOSE; Start 12/07/16 at 00:40 Glucagon (Glucagen) 1 mg Q15M PRN IM DECREASED GLUCOSE; Start 12/07/16 at 00:40 Glucose 15 gm 15 gm Q15M PRN BUCCAL DECREASED GLUCOSE; Start 12/07/16 at 00:40 Vancomycin HCl 750 mg/Sodium Chloride 150 ml @ 75 mls/hr Q12H IVPB Last administered on 12/08/16 01:32; Admin Dose 75 MLS/HR; Start 12/07/16 at 14:00 Dextrose/Sodium Chloride (D5-1/2ns) 1,000 ml @ 100 mls/hr Q10H IV Last administered on 12/08/16 08:24; Admin Dose 100 MLS/HR; Start 12/07/16 at 01:00 Enoxaparin Sodium (Lovenox) 40 mg DAILY SC Last administered on 12/08/16 09:05 ; Admin Dose 40 MG; Start 12/08/16 at 09:00 Clonidine HCl 1 patch 1 patch Q7D TRANSDERM Last administered on 12/07/16 17:39 ; Admin Dose 1 PATCH; Start 12/07/16 at 18:00 Potassium Chloride (KCl 40 MEQ/250 ML NS) 250 ml @ 62.5 mls/hr Q4H IVPB ; Start 12/08/16 at 10:30; Stop 12/08/16 at 18:29 CJ BRITO MD Dec 08, 2016 14:00
--- NOTE | 2016-12-08 15:15 | CONS ---
Date/Time of Note Date/Time of Note DATE: 12/08/16 TIME: 14:54 Assessment/Plan Assessment/Plan Additional Assessment/Plan Assessment * Diverticulitis sigmoid with microperforation * S/P explore laparotomy transverse loop colostomy * Colovesical fistula * Diabetes mellitus * History of cholecystectomy Plan * adequate pain control * continue present management * clear liquids if tolerated Consultation Date/Type/Reason Admit Date/Time Dec 06, 2016 at 21:22 Date of Consultation: Dec 08, 2016 Type of Consultation: Gastroenterology Reason for Consultation diverticulitis Referring Provider: CJ BRITO MD Hx of Present Illness 61 year old female with past medical history of cholecystectomy,history CABG, history of previous hernia surgery,depression,history of colovesical fistula admitted because of stomal pain.Patient was previously admitted last month because of diverticulitis with microperforation and eventually undergone explore laparotomy and diverting colostomy .Patient was discharged at [facility] and eventually sent home.2 days prior to admission ,she complained of peristomal pain and fever thus consult.Patient denies any hematemesis,hematochezia,nor abdominal pain. Emergency room course revealed CT scan 1. Acute sigmoid diverticulitis with a microperforation noted along the left lateral surface of the sigmoid colon. The small para diverticular abscess previously identified lateral to the perforated diverticulum on the CT scan dated 10/31/2016 as largely resolved with phlegmonous changes noted at the site of the earlier abscess. A 1 cm x 0.6 cm residual abscess is noted. . Status post partial sigmoid colectomy with residual and anastomotic suture. Status post hemicolectomy with double barrel diverting colostomy over the anterior left lower abdominal wall. . Bibasilar atelectasis. . Hepatomegaly with mild moderate intrahepatic biliary ductal dilatation and with the extrahepatic common bile duct measuring 1.3 cm. These findings are associated with prior cholecystectomy. Status post hysterectomy. . There is a large hiatal hernia which is unchanged when compared to 2016. . The previously identified colovesical fistula with bladder wall thickening and air in the urinary bladder is no longer clearly identified. A cystogram can be performed if clinically indicated to confirm healing. Presently,patient denies any abdominal pain ,nausea or vomiting. I have explained to her that she will be on antibiotics and will be evaluated by a surgeon Past Medical History Medical History: diabetes, diverticulitis, high cholesterol, hypertension Past Surgical History Past Surgical Hx: appendectomy, cholecystectomy Social History Smoking Status: Former smoker Exam/Review of Systems Vital Signs Vitals Vital Signs Date Time Temp Pulse Resp B/P Pulse Ox O2 Delivery O2 Flow Rate FiO2 12/08/16 08:28 98.8 55 20 160/70 98 12/06/16 22:07 Room Air Intake and Output 12/07/16 12/07/16 12/08/16 15:00 23:00 07:00 Intake Total 50 ml 1100 ml 1050 ml Balance 50 ml 1100 ml 1050 ml Exam Constitutional: alert, oriented, well developed Psych: nl mood/affect Head: atraumatic, normocephalic Eyes: EOMI, PERRL, nl conjunctiva, nl sclera Neck: non-tender, supple Respiratory: clear to auscultation, normal air movement Cardiovascular: nl pulses, regular rate and rhythm Gastrointestinal: nl liver, spleen, non-tender, soft Musculoskeletal: nl extremities to inspection, nl gait and stance Extremities: normal pulses Neurological: nl speech Skin: nl turgor, No rash or lesions Lymph: nl lymph nodes Results Result Diagram: 12/08/16 0511 12/08/16 0511 Results 24 hrs Laboratory Tests Test 12/07/16 17:43 12/07/16 20:23 12/07/16 23:23 12/08/16 05:11 Bedside Glucose 94 103 93 White Blood Count 6.0 Red Blood Count 3.50 L Hemoglobin 9.9 L Hematocrit 31.2 L Mean Corpuscular Volume 89.1 Mean Corpuscular Hemoglobin 28.3 L Mean Corpuscular Hemoglobin Concent 31.7 L Red Cell Distribution Width 17.5 H Platelet Count 362 Mean Platelet Volume 8.4 Neutrophils % 55.8 Lymphocytes % 33.7 Monocytes % 6.9 Eosinophils % 2.7 Basophils % 0.7 Nucleated Red Blood Cells % 0.0 Neutrophils # 3.3 Lymphocytes # 2.0 Monocytes # 0.4 Eosinophils # 0.2 Basophils # 0.0 Nucleated Red Blood Cells # 0.0 Prothrombin Time 13.7 Prothrombin Time Ratio 1.1 INR International Normalized Ratio 1.05 Sodium Level 142 Potassium Level 2.8 *L Chloride Level 110 Carbon Dioxide Level 27 Anion Gap 8 Blood Urea Nitrogen 6 #L Creatinine 0.36 L Glucose Level 88 # Hemoglobin A1c 6.5 H Calcium Level 9.1 Phosphorus Level 3.4 Magnesium Level 1.6 L Total Bilirubin 0.1 L Direct Bilirubin 0.00 Indirect Bilirubin 0.1 Aspartate Amino Transf (AST/SGOT) 17 Alanine Aminotransferase (ALT/SGPT) 33 Alkaline Phosphatase 104 Total Protein 6.1 Albumin 3.3 Globulin 2.80 Albumin/Globulin Ratio 1.17 Thyroid Stimulating Hormone (TSH) 3.620 Test 12/08/16 06:27 12/08/16 12:19 12/08/16 13:40 Bedside Glucose 96 93 Vancomycin Level Trough 8.0 L Medications Medications Current Medications Cefepime HCl (Maxipime 1gm/50 ml (Pmx)) 50 ml @ 100 mls/hr Q12 IVPB Last administered on 12/08/16 11:08; Admin Dose 100 MLS/HR; Start 12/07/16 at 00:30 Hydromorphone HCl (Dilaudid) 1 mg Q3H PRN IV PAIN Last administered on 14:40; Admin Dose 1 MG; Start 12/07/16 at 00:30 Ondansetron HCl (Zofran Inj) 4 mg Q6H PRN IV NAUSEA AND/OR VOMITING; Start 12/07 at 00:30 Famotidine (Pepcid Iv) 20 mg Q12 IV Last administered on 12/08/16 08:32; Admin Dose 20 MG; Start 12/07/16 at 09:00 Hydralazine HCl (Apresoline) 10 mg Q4H PRN IV ELEVATED SYSTOLIC BP; Start at 00:30 Insulin Aspart (Novolog Insulin Pen) NOVOLOG *MODERATE* ALGORI... Q6 SC Last administered on 12/07/16 06:37; Admin Dose 2 UNIT; Start 12/07/16 at 00:30 Miscellaneous Information 1 ea NOTE XX ; Start 12/07/16 at 00:40 Glucose (Glutose) 15 gm Q15M PRN PO DECREASED GLUCOSE; Start 12/07/16 at 00:40 Glucose (Glutose) 22.5 gm Q15M PRN PO DECREASED GLUCOSE; Start 12/07/16 at 00:40 Dextrose (D50w Syringe) 25 ml Q15M PRN IV DECREASED GLUCOSE; Start 12/07/16 at 00:40 Dextrose (D50w Syringe) 50 ml Q15M PRN IV DECREASED GLUCOSE; Start 12/07/16 at 00:40 Glucagon (Glucagen) 1 mg Q15M PRN IM DECREASED GLUCOSE; Start 12/07/16 at 00:40 Glucose 15 gm 15 gm Q15M PRN BUCCAL DECREASED GLUCOSE; Start 12/07/16 at 00:40 Vancomycin HCl 750 mg/Sodium Chloride 150 ml @ 75 mls/hr Q12H IVPB Last administered on 12/08/16 01:32; Admin Dose 75 MLS/HR; Start 12/07/16 at 14:00; Stop 12/08/16 at 22:00 Dextrose/Sodium Chloride (D5-1/2ns) 1,000 ml @ 100 mls/hr Q10H IV Last administered on 12/08/16 08:24; Admin Dose 100 MLS/HR; Start 12/07/16 at 01:00 Enoxaparin Sodium (Lovenox) 40 mg DAILY SC Last administered on 12/08/16 09:05 ; Admin Dose 40 MG; Start 12/08/16 at 09:00 Clonidine HCl 1 patch 1 patch Q7D TRANSDERM Last administered on 12/07/16 17:39 ; Admin Dose 1 PATCH; Start 12/07/16 at 18:00 Potassium Chloride (KCl 40 MEQ/250 ML NS) 250 ml @ 62.5 mls/hr Q4H IVPB ; Start 12/08/16 at 10:30; Stop 12/08/16 at 18:29 Insulin Glargine 7 unit 7 unit HS SC ; Start 12/08/16 at 21:00 Vancomycin HCl (Vancocin) 250 ml @ 125 mls/hr Q12H IVPB ; Start 12/08/16 at 23: 00 BARBARA WHALEN MD Dec 08, 2016 15:07
[2016-12-08] MEDS: POTASSIUM CHLORIDE 250 ML IVPB SCH ×2 (16:31→22:10)
[2016-12-08 19:31] VITALS: BP 135/63; RESP 18
[2016-12-08] MEDS: SILVER SULFADIAZINE 1% 25 GM CR TOP SCH (20:52)
[2016-12-08] MEDS: INSULIN GLARGINE [LANtus] 3 ML PEN SC SCH (20:55)
[2016-12-08] MEDS ORDERED: VANCOMYCIN 1 GM in NS 250 ML IVPB SCH (23:00)
[2016-12-09] MEDS: HYDROmorphONE 1 MG/ML SYG IV PRN ×9 (02:57→21:28)
[2016-12-09] MEDS: INSULIN ASPART [NOVOLOG] 3 ML PEN SC SCH ×4 (05:30→17:37)
[2016-12-09 05:32] LABS: ADD SCAN DIFF NO
[2016-12-09 05:38] LABS: BASOPHILS % 0.6 % (0.0-2.0); EOSINOPHILS # 0.1 10^3/ul (0.0-0.5); HEMATOCRIT 32.9 % (37.0-47.0); HEMOGLOBIN 10.5 g/dl (12.0-16.0); LYMPHOCYTES # 2.3 10^3/ul (0.8-2.9); LYMPHOCYTES % 33.4 % (15.0-51.0); MEAN CORPUSCULAR HEMOGLOBIN 28.3 pg (29.0-33.0); MEAN CORPUSCULAR HGB CONC 31.9 g/dl (32.0-37.0); MEAN CORPUSCULAR VOLUME 88.7 fl (82.0-101.0); MEAN PLATELET VOLUME 8.3 fl (7.4-10.4); MONOCYTE # 0.4 10^3/ul (0.3-0.9); MONOCYTES % 5.6 % (0.0-11.0); NEUTROPHILS % 58.1 % (39.0-77.0); PLATELET COUNT 387 10^3/UL (140-415); RED BLOOD COUNT 3.71 10^6/ul (4.20-5.40); RED CELL DISTRIBUTION WIDTH 17.3 % (11.5-14.5); WHITE BLOOD COUNT 6.8 10^3/ul (4.8-10.8)
[2016-12-09 06:00] LABS: ALBUMIN 3.7 g/dl (3.3-4.9); ALBUMIN/GLOBULIN RATIO 1.19; BILIRUBIN,INDIRECT 0.2 mg/dl (0-1.1); BILIRUBIN,TOTAL 0.2 mg/dl (0.2-1.3); CALCIUM 9.5 mg/dl (8.4-10.2); CREATININE 0.36 mg/dl (0.44-1.00); MAGNESIUM 1.8 mg/dl (1.7-2.5); PHOSPHORUS 3.6 mg/dl (2.5-4.9); TOTAL PROTEIN 6.8 g/dl (6.1-8.1)
[2016-12-09 08:14] VITALS: BP 142/65; RESP 18
[2016-12-09] MEDS: FAMOTIDINE 20 MG INJ IV SCH (08:51)
[2016-12-09] MEDS: ENOXAPARIN 40 MG/0.4 ML SYG SC SCH (09:02)
--- NOTE | 2016-12-09 09:38 | PN ---
Date/Time of Note Date/Time of Note DATE: 12/09/16 TIME: 09:35 Assessment/Plan VTE Prophylaxis VTE Prophylaxis Intervention: ambulation Lines/Catheters IV Catheter Type (from Nrs): Peripheral IV Assessment/Plan Assessment/Plan Assessment * Diverticulitis sigmoid with microperforation * S/P explore laparotomy transverse loop colostomy * Colovesical fistula * Diabetes mellitus * History of cholecystectomy Plan * continue present management * regular diet Subjective 24 Hr Interval Summary Free Text/Dictation * Course reviewed with RN * patient seen and examined * Denies abdominal pain,afebrile * Tolerating diet Exam/Review of Systems Vital Signs Vitals Vital Signs Date Time Temp Pulse Resp B/P Pulse Ox O2 Delivery O2 Flow Rate FiO2 12/09/16 08:14 98.5 59 18 142/65 95 12/06/16 22:07 Room Air Intake and Output 12/08/16 12/08/16 12/09/16 15:00 23:00 07:00 Intake Total 570 ml 550 ml Output Total 200 ml Balance 570 ml 350 ml Exam Constitutional: alert Neck: non-tender, supple Respiratory: clear to auscultation, normal air movement Cardiovascular: nl pulses, regular rate and rhythm Gastrointestinal: bowel sounds, non-tender, other (colostomy intact with stool) , soft Musculoskeletal: nl extremities to inspection Extremities: normal pulses Results Result Diagram: 12/09/16 0505 12/09/16 0505 Results 24 hrs Laboratory Tests Test 12/08/16 12:19 12/08/16 13:40 12/08/16 17:35 12/08/16 20:51 Bedside Glucose 93 91 94 Vancomycin Level Trough 8.0 L Test 12/09/16 00:32 12/09/16 05:05 12/09/16 05:28 Bedside Glucose 91 80 White Blood Count 6.8 Red Blood Count 3.71 L Hemoglobin 10.5 L Hematocrit 32.9 L Mean Corpuscular Volume 88.7 Mean Corpuscular Hemoglobin 28.3 L Mean Corpuscular Hemoglobin Concent 31.9 L Red Cell Distribution Width 17.3 H Platelet Count 387 Mean Platelet Volume 8.3 Neutrophils % 58.1 Lymphocytes % 33.4 Monocytes % 5.6 Eosinophils % 2.0 Basophils % 0.6 Nucleated Red Blood Cells % 0.0 Neutrophils # 4.0 Lymphocytes # 2.3 Monocytes # 0.4 Eosinophils # 0.1 Basophils # 0.0 Nucleated Red Blood Cells # 0.0 Sodium Level 141 Potassium Level 4.0 Chloride Level 107 Carbon Dioxide Level 27 Anion Gap 11 Blood Urea Nitrogen 3 L Creatinine 0.36 L Glucose Level 80 Calcium Level 9.5 Phosphorus Level 3.6 Magnesium Level 1.8 Total Bilirubin 0.2 Direct Bilirubin 0.00 Indirect Bilirubin 0.2 Aspartate Amino Transf (AST/SGOT) 14 L Alanine Aminotransferase (ALT/SGPT) 27 Alkaline Phosphatase 120 Total Protein 6.8 Albumin 3.7 Globulin 3.10 Albumin/Globulin Ratio 1.19 Medications Medications Current Medications Hydromorphone HCl (Dilaudid) 1 mg Q3H PRN IV PAIN Last administered on 08:51; Admin Dose 1 MG; Start 12/07/16 at 00:30 Ondansetron HCl (Zofran Inj) 4 mg Q6H PRN IV NAUSEA AND/OR VOMITING; Start 12/07 at 00:30 Hydralazine HCl (Apresoline) 10 mg Q4H PRN IV ELEVATED SYSTOLIC BP; Start at 00:30 Insulin Aspart (Novolog Insulin Pen) NOVOLOG *MODERATE* ALGORI... Q6 SC Last administered on 12/07/16 06:37; Admin Dose 2 UNIT; Start 12/07/16 at 00:30 Miscellaneous Information 1 ea NOTE XX ; Start 12/07/16 at 00:40 Glucose (Glutose) 15 gm Q15M PRN PO DECREASED GLUCOSE; Start 12/07/16 at 00:40 Glucose (Glutose) 22.5 gm Q15M PRN PO DECREASED GLUCOSE; Start 12/07/16 at 00:40 Dextrose (D50w Syringe) 25 ml Q15M PRN IV DECREASED GLUCOSE; Start 12/07/16 at 00:40 Dextrose (D50w Syringe) 50 ml Q15M PRN IV DECREASED GLUCOSE; Start 12/07/16 at 00:40 Glucagon (Glucagen) 1 mg Q15M PRN IM DECREASED GLUCOSE; Start 12/07/16 at 00:40 Glucose (Glutose) 15 gm Q15M PRN BUCCAL DECREASED GLUCOSE; Start 12/07/16 at 00: 40 Enoxaparin Sodium (Lovenox) 40 mg DAILY SC Last administered on 12/09/16 09:02 ; Admin Dose 40 MG; Start 12/08/16 at 09:00 Clonidine HCl (Catapres-Tts 1 Patch) 1 patch Q7D TRANSDERM Last administered on 12/07/16 17:39; Admin Dose 1 PATCH; Start 12/07/16 at 18:00 Insulin Glargine (Lantus) 7 unit HS SC Last administered on 12/08/16 20:55; Admin Dose 7 UNIT; Start 12/08/16 at 21:00 Famotidine (Pepcid Iv) 20 mg DAILY IV Last administered on 12/09/16 08:51; Admin Dose 20 MG; Start 12/09/16 at 09:00 Silver Sulfadiazine (Thermazene 1% 25 Gm) 1 applic BID TOP Last administered on 12/08/16 20:52; Admin Dose 1 APPLIC; Start 12/08/16 at 21:00 BARBARA WHALEN MD Dec 09, 2016 09:38
--- NOTE | 2016-12-09 11:15 | PN ---
Date/Time of Note Date/Time of Note DATE: 12/09/16 TIME: 11:13 Assessment/Plan VTE Prophylaxis VTE Prophylaxis Intervention: LMWH Lines/Catheters IV Catheter Type (from Nrs): Peripheral IV Assessment/Plan Chief Complaint/Hosp Course S: 6/7 events noted 12/08 feels better. Updated regarding the nature of diverticular disease. 12/09: No events. Moderate pain at colostomy site. No fever nausea vomiting. tolerating clears. O: vss PE No pallor icterus Reg Clear Bs diminished, min tender, nd; colostomy C/D/I No edema A/P 1. Acute? sigmoid diverticulitis w microperforation. Stable cont npo/IVf/atb' s. Appreciate GI/surgical assistance. -If not acute can DC antibiotics. Home w home health ostomy care/ APC follow-up tomorrow if tolerating soft diet. 2. Chr diverticulitis w recent Ex lapy, I&D of pelvic abscess and diverting colostomy; additionally intra-abd abscess-was on antibiotics for maybe 1 . 3. Diabetes/metabolic syndrome 4. Anemia 5. [place]-vesicular fistula; healed? 6. Compression fracture status; lumbar/ thoracic 7. Past tobacco 8. Chr CAD 9. Chr asthma 10.Chr hypothyroidism Problems: Exam/Review of Systems Vital Signs Vitals Vital Signs Date Time Temp Pulse Resp B/P Pulse Ox O2 Delivery O2 Flow Rate FiO2 12/09/16 08:14 98.5 59 18 142/65 95 12/06/16 22:07 Room Air Intake and Output 12/08/16 12/08/16 12/09/16 15:00 23:00 07:00 Intake Total 570 ml 550 ml Output Total 200 ml Balance 570 ml 350 ml Results Result Diagram: 12/09/16 0505 12/09/16 0505 Results 24 hrs Laboratory Tests Test 12/08/16 12:19 12/08/16 13:40 12/08/16 17:35 12/08/16 20:51 Bedside Glucose 93 91 94 Vancomycin Level Trough 8.0 L Test 12/09/16 00:32 12/09/16 05:05 12/09/16 05:28 Bedside Glucose 91 80 White Blood Count 6.8 Red Blood Count 3.71 L Hemoglobin 10.5 L Hematocrit 32.9 L Mean Corpuscular Volume 88.7 Mean Corpuscular Hemoglobin 28.3 L Mean Corpuscular Hemoglobin Concent 31.9 L Red Cell Distribution Width 17.3 H Platelet Count 387 Mean Platelet Volume 8.3 Neutrophils % 58.1 Lymphocytes % 33.4 Monocytes % 5.6 Eosinophils % 2.0 Basophils % 0.6 Nucleated Red Blood Cells % 0.0 Neutrophils # 4.0 Lymphocytes # 2.3 Monocytes # 0.4 Eosinophils # 0.1 Basophils # 0.0 Nucleated Red Blood Cells # 0.0 Sodium Level 141 Potassium Level 4.0 Chloride Level 107 Carbon Dioxide Level 27 Anion Gap 11 Blood Urea Nitrogen 3 L Creatinine 0.36 L Glucose Level 80 Calcium Level 9.5 Phosphorus Level 3.6 Magnesium Level 1.8 Total Bilirubin 0.2 Direct Bilirubin 0.00 Indirect Bilirubin 0.2 Aspartate Amino Transf (AST/SGOT) 14 L Alanine Aminotransferase (ALT/SGPT) 27 Alkaline Phosphatase 120 Total Protein 6.8 Albumin 3.7 Globulin 3.10 Albumin/Globulin Ratio 1.19 Medications Medications Current Medications Hydromorphone HCl (Dilaudid) 1 mg Q3H PRN IV PAIN Last administered on 08:51; Admin Dose 1 MG; Start 12/07/16 at 00:30 Ondansetron HCl (Zofran Inj) 4 mg Q6H PRN IV NAUSEA AND/OR VOMITING; Start 12/07 at 00:30 Hydralazine HCl (Apresoline) 10 mg Q4H PRN IV ELEVATED SYSTOLIC BP; Start at 00:30 Insulin Aspart (Novolog Insulin Pen) NOVOLOG *MODERATE* ALGORI... Q6 SC Last administered on 12/07/16 06:37; Admin Dose 2 UNIT; Start 12/07/16 at 00:30 Miscellaneous Information 1 ea NOTE XX ; Start 12/07/16 at 00:40 Glucose (Glutose) 15 gm Q15M PRN PO DECREASED GLUCOSE; Start 12/07/16 at 00:40 Glucose (Glutose) 22.5 gm Q15M PRN PO DECREASED GLUCOSE; Start 12/07/16 at 00:40 Dextrose (D50w Syringe) 25 ml Q15M PRN IV DECREASED GLUCOSE; Start 12/07/16 at 00:40 Dextrose (D50w Syringe) 50 ml Q15M PRN IV DECREASED GLUCOSE; Start 12/07/16 at 00:40 Glucagon (Glucagen) 1 mg Q15M PRN IM DECREASED GLUCOSE; Start 12/07/16 at 00:40 Glucose (Glutose) 15 gm Q15M PRN BUCCAL DECREASED GLUCOSE; Start 12/07/16 at 00: 40 Enoxaparin Sodium (Lovenox) 40 mg DAILY SC Last administered on 12/09/16 09:02 ; Admin Dose 40 MG; Start 12/08/16 at 09:00 Clonidine HCl (Catapres-Tts 1 Patch) 1 patch Q7D TRANSDERM Last administered on 12/07/16 17:39; Admin Dose 1 PATCH; Start 12/07/16 at 18:00 Insulin Glargine (Lantus) 7 unit HS SC Last administered on 12/08/16 20:55; Admin Dose 7 UNIT; Start 12/08/16 at 21:00 Famotidine (Pepcid Iv) 20 mg DAILY IV Last administered on 12/09/16 08:51; Admin Dose 20 MG; Start 12/09/16 at 09:00 Silver Sulfadiazine (Thermazene 1% 25 Gm) 1 applic BID TOP Last administered on 12/08/16 20:52; Admin Dose 1 APPLIC; Start 12/08/16 at 21:00 CJ BRITO MD Dec 09, 2016 11:15
[2016-12-09] MEDS ORDERED: NON-FORMULARY/PATIENT OWN MED (Albuterol Sulfate (Proair Respiclick) 2 PUFFS) INHALATION PRN (11:30)
[2016-12-09] MEDS ORDERED: ALBUTEROL HFA 8 GM INHALER INH PRN (12:00)
[2016-12-09] MEDS: SILVER SULFADIAZINE 1% 25 GM CR TOP SCH ×2 (12:49→20:36)
[2016-12-09] MEDS: DULOXETINE 30 MG CAP DR PO SCH ×2 (12:49→20:35)
[2016-12-09] MEDS: PANTOPRAZOLE (EC) 40 MG TAB PO SCH (12:59)
[2016-12-09] MEDS: MINERAL OIL 30ML CUP PO SCH ×2 (15:01→20:35)
[2016-12-09] MEDS: NA PHOSPHATE/BIPHOS 133 ML ENEMA PR SCH (15:02)
[2016-12-09 19:36] VITALS: BP 107/54; RESP 18
[2016-12-09] MEDS: INSULIN GLARGINE [LANtus] 3 ML PEN SC SCH (20:37)
[2016-12-09] MEDS ORDERED: GABAPENTIN 100 MG CAP PO SCH (21:00)
[2016-12-09] MEDS ORDERED: ATORVASTATIN 20 MG TAB PO SCH (21:00)
[2016-12-10] MEDS: HYDROmorphONE 1 MG/ML SYG IV PRN ×6 (00:24→18:48)
[2016-12-10 05:44] LABS: ADD SCAN DIFF NO
[2016-12-10 05:52] LABS: BASOPHILS % 0.7 % (0.0-2.0); EOSINOPHILS # 0.2 10^3/ul (0.0-0.5); EOSINOPHILS % 2.6 % (0.0-7.0); HEMOGLOBIN 10.3 g/dl (12.0-16.0); LYMPHOCYTES # 1.8 10^3/ul (0.8-2.9); LYMPHOCYTES % 30.7 % (15.0-51.0); MEAN CORPUSCULAR HEMOGLOBIN 28.2 pg (29.0-33.0); MEAN CORPUSCULAR HGB CONC 31.2 g/dl (32.0-37.0); MEAN CORPUSCULAR VOLUME 90.4 fl (82.0-101.0); MEAN PLATELET VOLUME 8.2 fl (7.4-10.4); MONOCYTE # 0.4 10^3/ul (0.3-0.9); MONOCYTES % 6.8 % (0.0-11.0); NEUTROPHIL # 3.4 10^3/ul (1.6-7.5); NEUTROPHILS % 58.9 % (39.0-77.0); PLATELET COUNT 358 10^3/UL (140-415); RED BLOOD COUNT 3.65 10^6/ul (4.20-5.40); WHITE BLOOD COUNT 5.8 10^3/ul (4.8-10.8)
[2016-12-10] MEDS: INSULIN ASPART [NOVOLOG] 3 ML PEN SC SCH ×4 (06:00→17:38)
[2016-12-10] MEDS: PANTOPRAZOLE (EC) 40 MG TAB PO SCH (06:09)
[2016-12-10 06:16] LABS: ALBUMIN 3.8 g/dl (3.3-4.9); ALBUMIN/GLOBULIN RATIO 1.4; BILIRUBIN,INDIRECT 0.1 mg/dl (0-1.1); BILIRUBIN,TOTAL 0.1 mg/dl (0.2-1.3); CALCIUM 9.4 mg/dl (8.4-10.2); CREATININE 0.41 mg/dl (0.44-1.00); MAGNESIUM 1.5 mg/dl (1.7-2.5); PHOSPHORUS 5.2 mg/dl (2.5-4.9); POTASSIUM 3.5 mmol/L (3.5-5.1); TOTAL PROTEIN 6.5 g/dl (6.1-8.1)
[2016-12-10 07:25] VITALS: BP 117/56; RESP 18
[2016-12-10] MEDS ORDERED: GABAPENTIN 100 MG CAP PO SCH (08:15)
[2016-12-10] MEDS: DULOXETINE 30 MG CAP DR PO SCH (08:43)
[2016-12-10] MEDS: FAMOTIDINE 20 MG INJ IV SCH (08:43)
[2016-12-10] MEDS: NA PHOSPHATE/BIPHOS 133 ML ENEMA PR SCH (08:43)
[2016-12-10] MEDS: MINERAL OIL 30ML CUP PO SCH ×2 (08:43→14:00)
[2016-12-10] MEDS: SILVER SULFADIAZINE 1% 25 GM CR TOP SCH (08:44)
[2016-12-10] MEDS: ENOXAPARIN 40 MG/0.4 ML SYG SC SCH (08:48)
--- NOTE | 2016-12-10 11:24 | PN ---
Date/Time of Note Date/Time of Note DATE: 12/10/16 TIME: 11:21 Assessment/Plan VTE Prophylaxis VTE Prophylaxis Intervention: ambulation Lines/Catheters IV Catheter Type (from Nrsg): Peripheral IV Assessment/Plan Assessment/Plan Assessment * Diverticulitis sigmoid with microperforation improving * S/P explore laparotomy transverse loop colostomy * Colovesical fistula * Diabetes mellitus * History of cholecystectomy Plan * continue present management * regular diet * case was discussed with Dr Carson * further recommendations depend on clinical course Subjective 24 Hr Interval Summary Free Text/Dictation * Course reviewed with RN * Patient seen and examined * denies abdominal pain,nausea or vomiting * Afebrile Exam/Review of Systems Vital Signs Vitals Vital Signs Date Time Temp Pulse Resp B/P Pulse Ox O2 Delivery O2 Flow Rate FiO2 12/10/16 07:25 98.3 60 18 117/56 95 12/06/16 22:07 Room Air Intake and Output 12/09/16 12/09/16 12/10/16 15:00 23:00 07:00 Intake Total 1000 ml 800 ml Output Total 4 ml Balance 1000 ml 796 ml Exam Constitutional: alert, oriented Head: normocephalic Neck: non-tender, supple Respiratory: clear to auscultation, normal air movement Cardiovascular: nl pulses, regular rate and rhythm Gastrointestinal: nl liver, spleen, non-tender, other (colostomy,), soft Musculoskeletal: nl extremities to inspection, nl gait and stance Extremities: normal pulses Neurological: nl speech Skin: nl turgor, No rash or lesions Lymph: nl lymph nodes Results Result Diagram: 12/10/16 0512 12/10/16 0512 Results 24 hrs Laboratory Tests Test 12/09/16 12:22 12/09/16 17:36 12/09/16 20:35 12/10/16 00:23 Bedside Glucose 95 93 95 83 Test 12/10/16 05:12 12/10/16 06:08 White Blood Count 5.8 Red Blood Count 3.65 L Hemoglobin 10.3 L Hematocrit 33.0 L Mean Corpuscular Volume 90.4 Mean Corpuscular Hemoglobin 28.2 L Mean Corpuscular Hemoglobin Concent 31.2 L Red Cell Distribution Width 17.0 H Platelet Count 358 Mean Platelet Volume 8.2 Neutrophils % 58.9 Lymphocytes % 30.7 Monocytes % 6.8 Eosinophils % 2.6 Basophils % 0.7 Nucleated Red Blood Cells % 0.0 Neutrophils # 3.4 Lymphocytes # 1.8 Monocytes # 0.4 Eosinophils # 0.2 Basophils # 0.0 Nucleated Red Blood Cells # 0.0 Sodium Level 139 Potassium Level 3.5 Chloride Level 104 Carbon Dioxide Level 30 Anion Gap 9 Blood Urea Nitrogen 3 L Creatinine 0.41 L Glucose Level 77 Calcium Level 9.4 Phosphorus Level 5.2 H Magnesium Level 1.5 L Total Bilirubin 0.1 L Direct Bilirubin 0.00 Indirect Bilirubin 0.1 Aspartate Amino Transf (AST/SGOT) 19 Alanine Aminotransferase (ALT/SGPT) 31 Alkaline Phosphatase 115 Total Protein 6.5 Albumin 3.8 Globulin 2.70 Albumin/Globulin Ratio 1.40 Bedside Glucose 79 Medications Medications Current Medications Hydromorphone HCl (Dilaudid) 1 mg Q3H PRN IV PAIN Last administered on 10:25; Admin Dose 1 MG; Start 12/07/16 at 00:30 Ondansetron HCl (Zofran Inj) 4 mg Q6H PRN IV NAUSEA AND/OR VOMITING Last administered on 12/09/16 15:01; Admin Dose 4 MG; Start 12/07/16 at 00:30 Hydralazine HCl (Apresoline) 10 mg Q4H PRN IV ELEVATED SYSTOLIC BP; Start at 00:30 Insulin Aspart (Novolog Insulin Pen) NOVOLOG *MODERATE* ALGORI... Q6 SC Last administered on 12/07/16 06:37; Admin Dose 2 UNIT; Start 12/07/16 at 00:30 Miscellaneous Information 1 ea NOTE XX ; Start 12/07/16 at 00:40 Glucose (Glutose) 15 gm Q15M PRN PO DECREASED GLUCOSE; Start 12/07/16 at 00:40 Glucose (Glutose) 22.5 gm Q15M PRN PO DECREASED GLUCOSE; Start 12/07/16 at 00:40 Dextrose (D50w Syringe) 25 ml Q15M PRN IV DECREASED GLUCOSE; Start 12/07/16 at 00:40 Dextrose (D50w Syringe) 50 ml Q15M PRN IV DECREASED GLUCOSE; Start 12/07/16 at 00:40 Glucagon (Glucagen) 1 mg Q15M PRN IM DECREASED GLUCOSE; Start 12/07/16 at 00:40 Glucose (Glutose) 15 gm Q15M PRN BUCCAL DECREASED GLUCOSE; Start 12/07/16 at 00: 40 Enoxaparin Sodium (Lovenox) 40 mg DAILY SC Last administered on 12/10/16 08:48 ; Admin Dose 40 MG; Start 12/08/16 at 09:00 Clonidine HCl (Catapres-Tts 1 Patch) 1 patch Q7D TRANSDERM Last administered on 12/07/16 17:39; Admin Dose 1 PATCH; Start 12/07/16 at 18:00 Insulin Glargine (Lantus) 7 unit HS SC Last administered on 12/09/16 20:37; Admin Dose 7 UNIT; Start 12/08/16 at 21:00 Famotidine (Pepcid Iv) 20 mg DAILY IV Last administered on 12/10/16 08:43; Admin Dose 20 MG; Start 12/09/16 at 09:00 Silver Sulfadiazine (Thermazene 1% 25 Gm) 1 applic BID TOP Last administered on 12/10/16 08:44; Admin Dose 1 APPLIC; Start 12/08/16 at 21:00 Atorvastatin Calcium (Lipitor) 20 mg QHS PO Last administered on 12/09/16 20:36 ; Admin Dose 20 MG; Start 12/09/16 at 21:00 Duloxetine HCl (Cymbalta) 60 mg BID PO Last administered on 12/10/16 08:43; Admin Dose 60 MG; Start 12/09/16 at 11:30 Gabapentin (Neurontin) 200 mg QHS PO Last administered on 12/09/16 20:36; Admin Dose 200 MG; Start 12/09/16 at 21:00 Albuterol (Ventolin Hfa) 2 puff Q4H PRN INH WHEEZING; Start 12/09/16 at 12:00 Pantoprazole (Protonix Tab) 40 mg DAILY@06 PO Last administered on 12/10/16 06 :09; Admin Dose 40 MG; Start 12/09/16 at 13:00 Mineral Oil (Mineral Oil) 30 ml TID PO Last administered on 12/10/16 08:43; Admin Dose 30 ML; Start 12/09/16 at 14:30 Sodium Biphosphate/ Sodium Phosphate (Fleet Enema) 133 ml DAILY MT Last administered on 12/10/16 08:43; Admin Dose 133 ML; Start 12/09/16 at 14:30 Simethicone (Mylicon) 80 mg Q8 PRN PO DISTENSION/GAS/BLOATING; Start 12/09/16 at 14:30 AMAYA TALBOT NP Dec 10, 2016 11:24
[2016-12-10] MEDS ORDERED: MAGNESIUM SULFATE 3 GM in SOD CHLORIDE 0.9% 100 ML IVPB ONE (14:00)
--- NOTE | 2016-12-10 15:56 | CONS ---
DATE OF ADMISSION: 12/06/2016 DATE OF CONSULTATION: 12/10/2016 TYPE OF CONSULTATION: Surgical. Consulted requested for Dr. Jiménez and I am seeing for Dr. Jiménez. REASON FOR CONSULTATION: Abdominal pain and swelling around the colostomy and difficulty having col ostomy adherent to the skin around the colostomy. HISTORY OF PRESENT ILLNESS: This is a 61-year-old female with history of diabetes mellitus, hypothy roidism, diverticulitis status post diverting colostomy about a month ago for perforation of diverti cula with diverticular abscesses and colovesical and colovaginal fistula, now [facility] complaining of 3-day history of increasing periostomal swelling and moderate , crampy abdominal pain. Also, stating that her colostomy bag sometimes does not adhere to the skin due to the swelling. The patient admits that she has been passing stool all the time per colostomy and also passing flatus. She denies nausea, vomiting or diarrhea. No dysuria, polyuria, hematuria or flank pain. Denies any bleeding per vagina or rectum or with urine, but has been having some mu cus drainage from the vagina. This patient was admitted about a month ago or so in this hospital after being transferred from [facility]. On a CT scan at that time was found to have evidence of severe diverticulitis with 2 pelvic abscesses and patient has been actually passing blood per vagina and the rectum, and was diag nosed with diverticulitis with colovaginal and colovesical fistula. Started on antibiotics in this hospital. Since the radiologist was not able to percutaneously drain the abscesses, decision was ma de to proceed with laparotomy and having in mind to proceed with drainage of the abscesses and proba shamar resection of the sigmoid colon. But upon entrance of the abdominal cavity, it was found that th ere were severe adhesions of the bowel loops and sigmoid colon in the pelvis down, impossible to do any resection. Therefore, diverting transverse colostomy was placed for diversion of the stool to g nereyda a chance for the diverticulitis to heal and for the fistulae to close and maybe in the second ti me after everything is settled down, maybe a surgeon can proceed with resection of the diseased sigm oid colon and closure of the fistulae. Now, today patient has been in the hospital for a few days a nd has been getting treatment for different problems like diabetes and high blood pressure. MEDICATIONS: Please refer to the MAR. ALLERGIES: THE PATIENT IS ALLERGIC TO: 1. SULFAMETHOXAZOLE. 2. TRIMETHOPRIM. REVIEW OF SYSTEMS: History of surgery hernia operation, hysterectomy, appendectomy, cholecystectomy and spine surgery. History of pulmonary disorder in the form of asthma, positive. Cardiac disorde r positive for hypertension. The other problems are diabetes mellitus, hypercholesterolemia and thy roid disease. SOCIAL HISTORY: Smoking history is negative. PHYSICAL EXAMINATION: GENERAL: Today, the patient is alert, awake, oriented x3, but states that she feels much better. VITAL SIGNS: Temperature 98.3, heart rate 60 regular, respirations 18, blood pressure 117/56, satur ation 95% on room air. HEENT: Within normal limits. LUNGS: Clear to auscultation. HEART: Regular rhythm, no murmur. ABDOMEN: Soft. Colostomy is functioning. Both lower quadrants are slightly tender on deep pressur e. Midline incision is clean except on a spot area like about 2 cm x 1 cm, which has slight necrosi s of the skin on top of it, but underneath the granulation tissue is forming. LOWER EXTREMITIES: No pitting edema. LABORATORY DATA: Today, WBC is 5800 with 58% segmented. It should be mentioned that on admission o n 12/06/2016, WBC was 12,000 with 86% segmented. Hemoglobin is 10.3. Chemistry: Sodium and potass ium normal. BUN and creatinine normal. Phosphorus is 5.2, slightly elevated. Magnesium 1.5 is sli ghtly lower than normal. IMAGING: A CT scan of the pelvis and abdomen was done on admission. Please refer for details of e reporting to the computerized reporting of the images. But briefly, I would say that it mentions about the gastrointestinal tract that there is a large hiatal hernia, which is unchanged compared to the prior study. The stomach contains fluid, air and particulate matter. There are small bowel lo ops that contain fluid, but are not organized. They measure up to 2.3 cm in diameter. There is a m idline scar from earlier abdominal surgery with stranding adjacent to the scar believed related to t he postsurgical scar changes. There is double-barrel colostomy exiting the anterior left lower abdo halley wall. There is some stranding in the surrounding fat where the colostomy exits the anterior a bdominal wall. This appears less severe than on the prior study. The mucosal thickening of the exi ting colonic bowel loops at this level also appeared less severe on today's exam. There is no absce ss in the area. There is fecal material in the cecum, ascending colon, and remaining portions of the proximal transverse colon. There is some radiopaque contrast in the residual portions of the dista l transverse colon. There are diverticula in the descending colon and sigmoid colon. There are teo e inflammatory changes in the mucosal thickening associated with diverticulitis in the sigmoid colon . Previously, a diverticular abscess was noted surrounded by phlegmonous changes. The prior overal l area measured about 2.1 x 2.4 cm with a smaller central component of the abscess measuring 1 cm. The surrounding wall of the abscess now is a smaller with phlegmonous changes measuring about 2.4 x 1.5 cm. The more central portion of the abscess measures 1 cm x 0.6 cm. There is an anastomotic zepeda ture in line in the distal sigmoid colon related to prior surgery. It was also seen on the prior st udy but appears less severe. There is fecal material in rectal ampulla. ASSESSMENT AND PLAN: This is a 61-year-old female who is known to me from previous admission where Dr. Jiménez and I did a laparotomy on her for approach to diverticulitis of the sigmoid colon and absc esses, which there were extensive adhesions and we could not proceed to perform any resection. Ther efore, we placed a diverting loop colostomy at the level of the splenic flexure for diversion of the fecal stream to help heal the extensive diverticulitis that the patient had had for several months. At this time, patient was admitted because of complaining mainly the colostomy bag does not adhere to the skin and for that matter, I requested the colostomy nurse to help the patient and instruct t he patient how to adjust the colostomy bag to the skin. There was a little bit of tenderness and so me swelling probably, but now there is no swelling and there is no tenderness around the colostomy. There is no paracolostomy hernia. Colostomy is functioning. The findings on the CT scan of the [facility] actually are better than last admission. I told the patient that it is going to take months b efore all the inflammation will subside and I think the patient should receive p.o. antibiotics at [facility] for maybe 4 to 6 weeks, so that helps to completely eradicate the small abscess which is there a nd to help the inflammation of the previous diverticulitis to subside. I explained this matter in d etail to the patient and the patient understands now and agrees. The patient has been followed by Olivia Jiménez in his office, and she is going to be followed by Dr. Jiménez in his office once a month at [facility]. I will discuss with the primary admitting physician at this time to give the patient antibiot ics like ciprofloxacin and Flagyl to take at home for 4 weeks at least. Dictated By: TICO GUADARRAMA/ELINA Conf#: [id number] DID#: [id number]
--- NOTE | 2016-12-10 19:03 | PDOCDIS ---
Discharge Instructions DIAGNOSIS Discharge Diagnosis: colostomy pain CONDITION Patient Condition: Stable HOME CARE INSTRUCTIONS: Special Diet: soft to reg; cardiac ACTIVITY: Activity Restrictions: Slowly Increase Activity Do not Drive FOLLOW UP/APPOINTMENTS Appointments appt PCP 1wk Dr Jiménez -1-2wks Dr Carson -2-4wks [facility] wound care clinic -1wk Home Health to continue CJ BRITO MD Dec 10, 2016 19:03
[2016-12-10] MEDS ORDERED: MAGN400T28 PO (19:06)
[2016-12-10] MEDS ORDERED: UDCOL PO (19:06)
[2016-12-10] MEDS ORDERED: SSD1C20 TOP (19:06)
[2016-12-10 19:16] VITALS: BP 131/61; RESP 18
[2016-12-10] MEDS ORDERED: DOCUSATE SODIUM 10 MG/ML (10ML CUP) PO SCH (21:00)
[2016-12-11] MEDS ORDERED: MAGNESIUM OXIDE 400 MG TAB PO SCH (09:00)
--- NOTE | 2016-12-12 07:45 | DS ---
DATE OF ADMISSION: 12/06/2016 DATE OF DISCHARGE: 12/10/2016 PRIMARY CARE PHYSICIAN: Unknown. NETSUITE DEVELOPER: Dr. Carson, Dr. Jiménez. DIAGNOSIS ON ADMISSION: Abdominal pain. DIAGNOSES ON DISCHARGE: 1. Chronic sigmoid diverticulitis. 2. Colostomy status with pain. 3. History of acute sigmoid diverticulitis with marked microperforation. 4. Diabetes/metabolic syndrome. 5. Anemia. 6. History of colovesicular fistula. 7. Compression fracture status lumbar/thoracic. 8. Past tobacco. 9. Chronic coronary artery disease. 10. Chronic asthma. 11. Chronic hypothyroidism. HOSPITAL COURSE: A 61-year-old female was admitted with abdominal pain, ruled out for acute abdomen . The patient was seen by general surgery and GI. Initially concerning for acute diverticulitis. O n evaluation by her specialist, it was noted that most recently appeared to be chronic and more like irritation from her ostomy. I explained to the patient that part of the healing process is that th e ostomy will be uncomfortable and will require adequate ostomy care over the next few months. If s he does feel and does well, there is a chance that an ostomy takedown and colon reversal may benefit her overall care plan in the future. I have asked her to the patient and give this thing time to akua bowie. In terms of her chronic diverticulitis, she will need to continue dietary recommendations as instruc levar. There is no acute process and therefore, the patient does not need acute antibiotics. Osteotomy colostomy status: The patient to follow up with wound care clinic, [facility] I guess once a wee k. Home health to continue with I think accredited. The patient needs advanced care planning and reevaluated with primary LABORATORY DATA: INR 1. Urine unremarkable, trace leukocyte esterase. CMP essentially unremarkabl e. A1c of 6.5. Vitamin D level of 21 low. TSH of 3.6. Magnesium low. White cell count of 5.8, h emoglobin and hematocrit of 10 and 33, MCV 90, platelets of 358. CAT scan abdomen and pelvis read a s acute sigmoid diverticulitis with a microperforation noted along the left lateral surface of the s igmoid colon. Small parasites irritated abscess previously noted lateral to perforated (03:29 ). CAT scan from October has largely resolved with phlegmonous changes noted at the site of an earlier abscess. A 1 cm x 0.6 cm residual abscess is noted. She is not toxic without any fever or white co unt at this time. She is status post partial sigmoid colectomy with residual and anastomotic suture . She is status post hemicolectomy with double bearing diverting colostomy over the anterior left lo wer abdominal wall, atelectasis present, hepatomegaly mild, moderate intrahepatic biliary duct dilat ation with an extrahepatic common bile duct measuring 4.3 cm. Prior cholecystectomy status, status post hysterectomy, large hiatal hernia unchanged, previously identified colovesicular fistula with b ladder wall thickening and air in the urinary bladder is no longer identified. Consider cystogram i f needed to confirm the healing, old compression fracture status at L2 to L3, T11 and T12. There ar e postsurgical changes at L4. There is an encapsulated fluid collection dorsal of the thecal sac at the L4 laminectomy site measuring 1.7 x 1.3 x 2.9 cm in length, probable seroma. There is cardiome ezequiel, (04:55) bony and soft tissue canal stenosis at L3-4, severe compression fracture at L3. There is a 6.6 mm right lateral disk herniation resulting in the right L4-5 nerve roots. DISCHARGE PLAN: Home. FOLLOWUP: Follow up with primary in 1 week, Dr. Jiménez in 1 to 2 weeks, Dr. Yamileth arreola in 2 weeks. DIET: Cardiac, with diverticular precautions. ACTIVITY: As tolerated. No heavy lifting. DURABLE MEDICAL EQUIPMENT: Colostomy. BARRIERS TO DISCHARGE: None. PENDING TESTS: None. FUNCTIONAL STATUS: The patient is awake, alert, agrees to the care plan and options. REASON FOR ADMISSION: Abdominal pain. ALLERGIES: BACTRIM, SULFAMETHOXAZOLE. CODE STATUS: Full. CONDITION: Stable. MEDICATIONS: 1. Albuterol every 4 hours as needed. 2. Flexeril. 3. Cyclobenzaprine 10 mg every 8 hours as needed. 4. Lipitor 10. 5. Duloxetine 60 b.i.d. 6. Neurontin 100 daily morning and 200 at bedtime. 7. Stanton 5 one every 6 hours as needed. 8. Indomethacin 75 mg twice daily. 9. Paxil 40 daily. 10. Ultram 50 every 6 hours as needed. 11. (07:39) mg p.o. every 4 hours as needed p.r.n. abdominal pain. 12. Calcium with D daily. 13. Protonix 40 daily. 14. Ranitidine 150 bedtime daily. 15. Lantus 25 at bedtime. 16. (07:55) 8 units t.i.d. 17. Synthroid 150 mcg daily. 18. Metformin 1000 b.i.d. 19. Prednisone 5 mg daily. 20. Vitamin D 50,000 units weekly. NEW MEDICATIONS: 1. Magnesium oxide 400 b.i.d. 2. Tylenol as needed. 3. Colace 100 once daily. Dictated By: CJ WOODRUFF/ELINA Conf#: [id number] DID#: [id number] CC: JIN JIMÉNEZ MD; BARBARA CARSON;*[facility]*
== END 2016-12-10 21:05 | disposition home health service (06) | DRG 394 ==
LOC: E/R 16:24 → MS2 21:22
PROVIDERS: ADMIT Internal Medicine; ATTEND Internal Medicine
DX: Z43.3 Encounter for attention to colostomy (principal); K57.20 Diverticulitis of large intestine with perforation and abscess without bleeding; E88.81 Metabolic syndrome and other insulin resistance; E11.9 Type 2 diabetes mellitus without complications; D64.9 Anemia, unspecified; I10 Essential (primary) hypertension; T85.848A Pain due to other internal prosthetic devices, implants and grafts, initial encounter; E03.9 Hypothyroidism, unspecified; K44.9 Diaphragmatic hernia without obstruction or gangrene
CPT/HCPCS: 36415; 74177; 80053; 80202; 81001; 82306; 82962; 83036; 83690; 83735; 84100; 84443; 85025; 85610; 96374; 96375; J0692; J1170; J1650; J1815; J2270; J2405; J2543; J3370; J3475; J3480; J7030; J7042; Q9967

== ENCOUNTER 2017-01-03 00:18 | Inpatient (IN) | payer BC ==
[~2017-01-03] VITALS: Ht 152.4 cm; Wt 61.6 kg
[~2017-01-03 00:18] MED LIST changes: -ACET325T33 PO; +ATOR20TA38 PO; -CLON-379 PO; +CYCL-319 PO; +ERGO500037 PO; -GABA100C PO; +GABA100C14 PO; +INDO25CA25 PO; +INSU100I17 SQ; -LEVO137T3 PO; +MAGN400T28 PO; -PUMP MISCELLANEOUS; +RANI150T5 PO; -SIMV20TA PO; +SSD1C20 TOP; +TRAM-40 PO; +UDCOL PO; +[UNRECOGNIZED DRUG - CODE] PO
[2017-01-03 00:22] VITALS: Ht 152.4 cm; Wt 61.6 kg
[2017-01-03] MEDS ORDERED: SOD CHLORIDE 0.9% 500 ML IV STA (00:44)
[2017-01-03] MEDS ORDERED: morphine 4 MG/ML VIAL IV STA (00:55)
[2017-01-03] MEDS ORDERED: ONDANSETRON 4 MG INJ IV STA (00:55)
[2017-01-03 01:08] LABS: ADD SCAN DIFF NO
--- NOTE | 2017-01-03 01:27 | RADRPT ---
PROCEDURE: XR Chest. CLINICAL INDICATION: Abdominal pain. TECHNIQUE: Single frontal view of the chest. COMPARISON: 10/10/2016. FINDINGS: Cardiomegaly. Pulmonary vascular congestion. Mild left lung base atelectasis. The lungs are otherw ise clear. No signs of pleural fluid or pneumothorax are seen. Partial resorption of the right humeral head. Otherwise, the osseous structures and soft tissues ar e unremarkable. IMPRESSION: Cardiomegaly, pulmonary vascular congestion and mild left lung base atelectasis. RPTAT: [facility] Physician Triston Date Time Electronically viewed and signed by Physician Triston on 01/03/2017 01:27 RS/
[2017-01-03 01:28] LABS: ALANINE AMINOTRANSFERASE 23 IU/L (13-69); ALBUMIN 4.3 g/dl (3.3-4.9); ALBUMIN/GLOBULIN RATIO 1.53; ALKALINE PHOSPHATASE 127 IU/L (42-121); ANION GAP 21 (8-16); ASPARTATE AMINO TRANSFERASE 19 IU/L (15-46); BLOOD UREA NITROGEN 29 mg/dl (7-20); CALCIUM 9.6 mg/dl (8.4-10.2); CARBON DIOXIDE 23 mmol/L (21-31); CHLORIDE 101 mmol/L (97-110); CREATININE 0.79 mg/dl (0.44-1.00); GLUCOSE 310 mg/dl (70-220); POTASSIUM 4.8 mmol/L (3.5-5.1); SODIUM 140 mmol/L (135-144); TOTAL PROTEIN 7.1 g/dl (6.1-8.1)
[2017-01-03 01:42] LABS: ABNORMAL IP MESSAGE 1; HEMATOCRIT 35.6 % (37.0-47.0); HEMOGLOBIN 11.6 g/dl (12.0-16.0); LYMPHOCYTES # 0.6 10^3/ul (0.8-2.9); LYMPHOCYTES % 6.4 % (15.0-51.0); MEAN CORPUSCULAR HEMOGLOBIN 29.3 pg (29.0-33.0); MEAN CORPUSCULAR HGB CONC 32.6 g/dl (32.0-37.0); MEAN CORPUSCULAR VOLUME 89.9 fl (82.0-101.0); MEAN PLATELET VOLUME 8.8 fl (7.4-10.4); MONOCYTE # 0.4 10^3/ul (0.3-0.9); NEUTROPHIL # 8.1 10^3/ul (1.6-7.5); PLATELET COUNT 365 10^3/UL (140-415); RED BLOOD COUNT 3.96 10^6/ul (4.20-5.40); RED CELL DISTRIBUTION WIDTH 15.8 % (11.5-14.5); TROPONIN-I < 0.012 ng/ml (0.00-0.12); WHITE BLOOD COUNT 9.1 10^3/ul (4.8-10.8)
--- NOTE | 2017-01-03 02:20 | RADRPT ---
PROCEDURE: CT Abdomen and pelvis without contrast. CLINICAL INDICATION: Abdominal pain. TECHNIQUE: CT scan of the abdomen and pelvis was performed on a multi-detector high-resolution CT scanner. Contiguous axial images were obtained from the lung bases to the ischial tuberosities wit hout intravenous contrast. Coronal and sagittal reformatted images were also obtained. Images were reviewed on the PACS workstation. One or more of the following dose reduction techniques were used: - Automated exposure control. - Adjustment of the mA and/or kV according to patient size. - Use of iterative reconstruction technique. Exam CTD/vol = 10.15 mGy. Total exam DLP = 573.03 mGy-cm. COMPARISON: 12/06/2016. FINDINGS: Evaluation of the lung bases demonstrates bibasilar atelectasis. There is a moderate-sized hiatal h ernia. The heart is mildly enlarged. Abdomen: The liver is normal in size. There is no focal mass or dilatation of the biliary tree. T he patient is status post cholecystectomy. The spleen, pancreas and bilateral adrenal glands are wi thin normal limits. Bilateral kidneys are normal in size with no contour deforming mass identified. There is no radiopaque renal or ureteral calculus identified. There is no hydronephrosis or hydro ureter. There is no retroperitoneal adenopathy. The abdominal aorta is of normal caliber with scat tered atherosclerotic calcifications. There is a left abdominal colostomy. There is no bowel obstruction or free air. A normal appendix is identified. There is diverticulosis of the sigmoid colon with mild stranding at the mid sigmoid colon. There is no ascites. Pelvis: The bladder is unremarkable. The uterus is absent. There is no significant pelvic adenopa thy or free fluid. Evaluation of the osseous structures demonstrates no suspicious lytic or blastic lesion. There are d egenerative changes of the spine. There are mild compression deformities of the T11, T12 and L3 kely tebral bodies with up to 50% loss in vertebral body heights. There is prior laminectomy at L3-L4 an d L4-L5. IMPRESSION: Sigmoid diverticulosis with mild residual diverticulitis of the mid sigmoid, slightly decreased comp ared with 12/06/2016. The patient is status post left abdominal colostomy. There is no bowel obstr uction. Moderate sized hiatal hernia. Mild cardiomegaly. Mild bibasilar atelectasis. Vascular calcifications reflective of atherosclerosis. Mild compression deformities of T11, T12 and L3, stable. Prior laminectomy at L3-L4 and L4-L5. Degenerative changes of the spine. .Zaheer Hoffman MD, MD Date Time Electronically viewed and signed by .Zaheer Hoffman MD, on 01/03/2017 02:20 .T/
[2017-01-03 02:23] LABS: ADD UMIC YES; UR ASCORBIC ACID NEGATIVE (NEGATIVE); UR BACTERIA FEW /HPF (NONE SEEN); UR BILIRUBIN (Dip) NEGATIVE (NEGATIVE); UR BLOOD (Dip) 3+ mg/dL (NEGATIVE); UR CLARITY SLIGHTLY CLOUDY (CLEAR); UR COLOR YELLOW (YELLOW); UR GLUCOSE (Dip) 1+ mg/dL (NEGATIVE); UR KETONES (Dip) NEGATIVE (NEGATIVE); UR LEUKOCYTE ESTERASE (Dip) 3+ Leu/ul (NEGATIVE); UR NITRITE (Dip) NEGATIVE (NEGATIVE); UR RBC 28 /HPF (0-5); UR SPECIFIC GRAVITY (Dip) 1.025 (1.003-1.030); UR TOTAL PROTEIN (Dip) 1+ mg/dl (NEGATIVE); UR UROBILINOGEN (Dip) NEGATIVE (NEGATIVE)
--- NOTE | 2017-01-03 04:19 | ERA ---
ER Documentation Chief Complaint Date/Time DATE: 01/03/17 TIME: 04:18 Chief Complaint blood in stools x 3 days, blood in colostomy bag HPI 7-year-old female blood in her stools for the past 3 days. Also blood in colostomy bed. No fevers no chills. Mild abdominal pain associated with this blood. History of diverticulitis in the past. Mild nausea but no vomiting. No fevers or chills. No other current issues ROS All systems reviewed and are negative except as per history of present illness. Medications Home Meds Active Scripts Silver Sulfadiazine (THERMAZENE 1% 25 GM) 1 Applic Cr, 1 APPLIC TOP BID for 10 Days, #10 2 Refills Prov:CJ BRITO MD 12/10/16 Magnesium Oxide* (Magnesium Oxide*) 400 Mg Tablet, 400 MG PO BID for 10 Days, # 20 TAB Prov:CJ BRITO MD 12/10/16 Docusate Sodium* (Docusate Sodium* Liq) 50 Mg/5 Ml Liquid, 100 MG PO DAILY for 10 Days, #10 3 Refills Prov:CJ BRITO MD 12/10/16 Reported Medications Insulin Glulisine (Apidra Solostar) 100 Unit/1 Ml Insuln.pen, 12 UNIT SQ TID, # 1 TUB 12/06/16 Calcium Citrate/Vitamin D2 (Calcium with Vit D Tablet) 1 Each Tablet, 1 EACH PO , TAB 12/06/16 Cyclobenzaprine Hcl* (Cyclobenzaprine Hcl*) 10 Mg Tablet, 10 MG PO Q8 Y for MUSCLE SPASM, #60 TAB 12/06/16 Tramadol Hcl* (Ultram*) 50 Mg Tablet, 50 MG PO Q6H Y for PAIN, TAB 12/06/16 Ranitidine Hcl* (Ranitidine Hcl*) 150 Mg Tablet, 150 MG PO HS, #30 TAB 12/06/16 Indomethacin* (Indocin*) 25 Mg Capsule, 75 MG PO BID, CAP 12/06/16 Ergocalciferol (Vitamin D2) (VITAMIN D2) 50,000 Unit Capsule, 34562 UNIT PO QMON , CAP 12/06/16 Atorvastatin Calcium* (Atorvastatin Calcium*) 20 Mg Tablet, 20 MG PO QHS, #30 TAB 12/06/16 Gabapentin* (Gabapentin*) 100 Mg Capsule, 200 MG PO QHS, #90 CAP 12/06/16 Gabapentin* (Gabapentin*) 100 Mg Capsule, 100 MG PO WITH BREAKFAST, #90 CAP 12/06/16 Calcium Carbonate* (Calcium Carbonate*) 600 MG Ca Tab, 1000 MG PO Q4 Y for UPSET STOMACH, TAB 10/09/16 Paroxetine Hcl* (Paroxetine*) 40 Mg Tablet, 40 MG PO DAILY, TAB 10/09/16 Pantoprazole (Protonix) 40 Mg Tabec, 40 MG PO DAILY, TAB 10/09/16 Metformin* (Glucophage*) 1,000 Mg Tablet, 1000 MG PO BID, #60 TAB 10/09/16 Levothyroxine Sodium* (Synthroid*) 150 Mcg Tablet, 150 MCG PO BEFORE BREAKFAST, #30 TAB 10/09/16 Insulin Glargine* (Lantus*) 100 Unit/Ml Soln, 25 UNIT SC QHS, #1 VIAL 10/09/16 Hydrocodone/Acetaminophen ([place] 5-325 Tablet) 1 Each Tablet, 1 EACH PO Q6 Y for PAIN, TAB 10/09/16 Albuterol Sulfate (Proair Respiclick) 90 Mcg Aer.pow.ba, 2 PUFFS INHALATION Q4 Y for WHEEZING, BOTTLE MED FROM HOME 10/09/16 Prednisone* (Prednisone*) 5 Mg Tab, 5 MG PO DAILY, TAB 01/28/16 Duloxetine Hcl* (Duloxetine Hcl*) 60 Mg Capsule.dr, 60 MG PO BID, #30 CAP 01/28/16 Allergies Allergies: Coded Allergies: sulfamethoxazole (Unverified Allergy, Mild, 01/03/17) trimethoprim (Unverified Allergy, Mild, 01/03/17) PMhx/Soc History of Surgery: Yes (Diverting Colostomy, Hysterectomy, Cholecystectomy, CABG, Back surgery, Teagan) Anesthesia Reaction: No Hx Neurological Disorder: No Hx Respiratory Disorders: Yes (Bronchitis) Hx Cardiac Disorders: Yes (HTN, Hxof Open Heart Surgery) Hx Psychiatric Problems: Yes (Depression) Hx Miscellaneous Medical Probl: Yes (High Cholesterol, Hypothyroidism, Shingles ) Hx Alcohol Use: No Hx Substance Use: No Hx Tobacco Use: Yes Smoking Status: Current every day smoker Physical Exam Vitals Vital Signs Date Time Temp Pulse Resp B/P Pulse Ox O2 Delivery O2 Flow Rate FiO2 01/03/17 03:04 98.8 74 18 148/66 96 Room Air 01/03/17 00:41 99.0 84 18 137/81 94 Room Air 01/03/17 00:22 98.3 96 20 170/75 98 Physical Exam Const: [] Head: Atraumatic Eyes: Normal Conjunctiva ENT: Normal External Ears, Nose and Mouth. Neck: Full range of motion..~ No meningismus. Resp: Clear to auscultation bilaterally Cardio: Regular rate and rhythm, no murmurs Abd: Soft, non tender, non distended. Normal bowel sounds Skin: No petechiae or rashes Back: No midline or flank tenderness Ext: No cyanosis, or edema Neur: Awake and alert Psych: Normal Mood and Affect Result Diagram: 01/03/174901/03/17 0050 Results 24 hrs Laboratory Tests Test 01/03/17 00:50 01/03/17 01:55 White Blood Count 9.110^3/ul Red Blood Count 3.9610^6/ul Hemoglobin 11.6g/dl Hematocrit 35.6% Mean Corpuscular Volume 89.9fl Mean Corpuscular Hemoglobin 29.3pg Mean Corpuscular Hemoglobin Concent 32.6g/dl Red Cell Distribution Width 15.8% Platelet Count 61480^3/UL Mean Platelet Volume 8.8fl Neutrophils % 89.0% Lymphocytes % 6.4% Monocytes % 4.0% Eosinophils % 0.0% Basophils % 0.0% Nucleated Red Blood Cells % 0.0/100WBC Neutrophils # 8.110^3/ul Lymphocytes # 0.610^3/ul Monocytes # 0.410^3/ul Eosinophils # 0.010^3/ul Basophils # 0.010^3/ul Nucleated Red Blood Cells # 0.010^3/ul Sodium Level 140mmol/L Potassium Level 4.8mmol/L Chloride Level 101mmol/L Carbon Dioxide Level 23mmol/L Anion Gap 21 Blood Urea Nitrogen 29mg/dl Creatinine 0.79mg/dl Glucose Level 310mg/dl Calcium Level 9.6mg/dl Total Bilirubin 0.0mg/dl Direct Bilirubin 0.00mg/dl Indirect Bilirubin 0.0mg/dl Aspartate Amino Transf (AST/SGOT) 19IU/L Alanine Aminotransferase (ALT/SGPT) 23IU/L Alkaline Phosphatase 127IU/L Troponin I < 0.012ng/ml Total Protein 7.1g/dl Albumin 4.3g/dl Globulin 2.80g/dl Albumin/Globulin Ratio 1.53 Lipase 53U/L Urine Color YELLOW Urine Clarity SLIGHTLY CLOUDY Urine pH 5.0 Urine Specific [place] 1.025 Urine Ketones NEGATIVEmg/dL Urine Nitrite NEGATIVEmg/dL Urine Bilirubin NEGATIVEmg/dL Urine Urobilinogen NEGATIVEmg/dL Urine Leukocyte Esterase 3+Jamilah/ul Urine Microscopic RBC 28/HPF Urine Microscopic WBC 111/HPF Urine Bacteria FEW/HPF Urine Hemoglobin 3+mg/dL Urine Glucose 1+mg/dL Urine Total Protein 1+mg/dl Current Medications Medications (Trade) Dose Ordered Sig/Moose Route PRN Reason Start Time Stop Time Status Last Admin Dose Admin Sodium Chloride (NS) 500 ml @ 500 mls/hr Q1H STAT IV 01/03/17 00:44 01/03/17 01:43 DC 01/03/17 01:01 Morphine Sulfate (morphine) 4 mg ONCE STAT IV 01/03/17 00:55 01/03/17 00:56 DC 01/03/17 01:01 Ondansetron HCl (Zofran Inj) 4 mg ONCE STAT IV 01/03/17 00:55 01/03/17 00:56 DC 01/03/17 01:01 Procedures/MDM Medical decision-making: Patient has evidence of acute diverticulitis. Given her history appreciated patient will be admitted to hospitalist Departure Diagnosis: Primary Impression: Acute diverticulitis Condition: Serious MOY COLÓN Jan 03, 2017 04:18
[2017-01-03 04:50] VITALS: TEMP 98.6
[2017-01-03 04:55] VITALS: BP 169/77; RESP 19
[2017-01-03] MEDS: morphine 4 MG/ML VIAL IV PRN ×3 (05:25→17:32)
[2017-01-03] MEDS ORDERED: SOD CHLORIDE 0.9% 1,000 ML IV SCH (06:34)
[2017-01-03] MEDS ORDERED: ALBUTEROL 18 GM INHALER INH PRN (07:00)
[2017-01-03] MEDS ORDERED: GLUCOSE GEL 15 GRAM TUBE PO PRN ×2 (07:00)
[2017-01-03] MEDS ORDERED: GLUCOSE GEL 15 GRAM TUBE BUCCAL PRN (07:00)
[2017-01-03] MEDS ORDERED: PANTOPRAZOLE 40 MG INJ IV SCH (07:00)
[2017-01-03] MEDS ORDERED: DEXTROSE 50% 50 ML SYRINGE IV PRN ×2 (07:00)
[2017-01-03] MEDS ORDERED: GLUCAGON 1 MG INJ IM PRN (07:00)
[2017-01-03] MEDS ORDERED: ONDANSETRON 4 MG INJ IV PRN (07:00)
[2017-01-03] MEDS ORDERED: NON-FORMULARY/PATIENT OWN MED (Albuterol Sulfate (Proair Respiclick) 2 PUFFS) INHALATION PRN (07:00)
[2017-01-03] MEDS: LEVOTHYROXINE 100 MCG VIAL IV SCH ×2 (07:00→14:43)
[2017-01-03] MEDS ORDERED: NACL 0.9% 3 ML SYG IV SCH (07:00)
--- NOTE | 2017-01-03 07:02 | HP ---
Date/Time of Note Date/Time of Note DATE: 01/03/17 TIME: 06:13 Assessment/Plan VTE Prophylaxis VTE Prophylaxis Intervention: SCD's Assessment/Plan Chief Complaint/Hosp Course This is a 61-year-old female being admitted to the [facility] floor for: #1 recurrent diverticulitis: CT scan of the abdomen shows diverticulitis that is slightly decreased from previous scan on 12/06/2016. At the current time will put patient on IV antibiotics of cefepime and Flagyl secondary to patient's previous recurrent history as well as surgical colostomy. Will consult patient' s new surgeon Dr. Cherry at her request. We will keep the patient n.p.o. #2 vaginal bleeding: Vaginal exam was deferred she would like to wait until evaluated by CONSERVATION BIOLOGY PROFESSOR. H/H q 6hrs. Type and screen. 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 Will consider consultation to CONSERVATION BIOLOGY PROFESSOR. #3 abnormal chest x-ray: Chest x-ray shows some possible pulmonary vascular congestion. However on exam there are no crackles or rales or wheezes. She does not have any signs of fluid overload. There is no edema in the lower extremities. At the current time we will continue to follow the patient. And with her cardiac workup is necessary we will initiate it. #4Anemia: Hemoglobin is 11.6. Which is relatively stable compared to her previous admissions. We will continue H&H every 6 hours. Type and screen. #5asthma: As needed albuterol #6 history of coronary artery disease: Stable at this time. Will resume oral medications was reviewed with the patient #7 type 2 diabetes mellitus: Patient is currently n.p.o. we will put patient on sliding scale. Will resume home insulin doses with patient is eating. Her last hemoglobin A1c and December was We likely will need to lower her insulin regimen to prevent any hypoglycemic episodes. #8 hypothyroidism: We will switch from patient's home p.o. form to IV form this patient is currently n.p.o. She takes 150 mcg orally at home so right now we will give her 75 mcg IV. #9 depression: She has duloxetine and paroxetine on her med rec. Will need to confirm in the morning which medication she is taking as puts them together could increase the risk of serotonin syndrome. #10 DVT and GI prophylaxis: SCDs, Protonix Further treatment strategy will be implemented as per the clinical course Problems: HPI/ROS Admit Date/Time Admit Date/Time Jan 03, 2017 at 04:09 Hx of Present Illness cc: abdominal pain, vaginal bleeding This is a 61-year-old female blood in her stools for the past 3 days out of the colostomy bag as well as vaginal bleeding for 3 days. No fevers no chills. Mild abdominal pain associated with this blood. History of diverticulitis in the past. Mild nausea but no vomiting. No fevers or chills. She also states she has noticed vaginal bleeding. She states she was told by her surgeon that she likely is bleeding through a rectovaginal fistula. However during the time no surgery was recommended. She has a new surgeon and she would like to have him consulted. Dr. Cherry. H/Family/Social Past Medical History asthma, history of coronary artery disease, type 2 diabetes mellitus, hypothyroidism, depression, recurrent diverticulitis, Past Surgical History cholecystectomy, history of total abdominal hysterectomy, history of previous hernia surgery and back surgery, exploratory laparotomy and placement of diverting transverse colostomy, Open Heart Surgery for Patent Foramen [place], laminectomy at L3-L4 and L4-L5. Past Surgical Hx: appendectomy, cholecystectomy Family History Significant Family History: no pertinent family hx Social History Alcohol Use: none Smoking Status: Current every day smoker Drug Use: none Exam/Review of Systems Vital Signs Vitals Vital Signs Date Time Temp Pulse Resp B/P Pulse Ox O2 Delivery O2 Flow Rate FiO2 01/03/17 04:55 97.5 59 19 169/77 96 01/03/17 04:50 Room Air Exam Exam General: Patient is a well-developed female in no acute distress HEENT: Atraumatic, normocephalic. The pupils are equal, round and reactive. Extraocular motor are intact Neck: Supple with full range of motion. No rigidity or meningismus Chest: Nontender Lungs: Clear to auscultation bilaterally no crackles rales or wheezing Heart: Normal S1-S2, Regular rhythm and rate. No murmur, S3, or S4 Abdomen: Soft, mild tenderness around the colostomy bag, mild tenderness over the suprapubic area. No blood noted in the colostomy bag. Vaginal exam deferred Extremities: Normal to inspection, no edema no cyanosis Neurologic: Normal mental status, speech normal, cranial nerves II through XII are intact, motor and sensory are intact, no focal weakness Additional Comments PROCEDURE: XR Chest. CLINICAL INDICATION: Abdominal pain. TECHNIQUE: Single frontal view of the chest. COMPARISON: 10/10/2016. FINDINGS: Cardiomegaly. Pulmonary vascular congestion. Mild left lung base atelectasis. The lungs are otherwise clear. No signs of pleural fluid or pneumothorax are seen. Partial resorption of the right humeral head. Otherwise, the osseous structures and soft tissues are unremarkable. IMPRESSION: Cardiomegaly, pulmonary vascular congestion and mild left lung base atelectasis. PROCEDURE: CT Abdomen and pelvis without contrast. CLINICAL INDICATION: Abdominal pain. TECHNIQUE: CT scan of the abdomen and pelvis was performed on a multi- detector high-resolution CT scanner. Contiguous axial images were obtained from the lung bases to the ischial tuberosities without intravenous contrast. Coronal and sagittal reformatted images were also obtained. Images were reviewed on the PACS workstation. One or more of the following dose reduction techniques were used: - Automated exposure control. - Adjustment of the mA and/or kV according to patient size. - Use of iterative reconstruction technique. Exam CTD/vol = 10.15 mGy. Total exam DLP = 573.03 mGy-cm. COMPARISON: 12/06/2016. FINDINGS: Evaluation of the lung bases demonstrates bibasilar atelectasis. There is a moderate-sized hiatal hernia. The heart is mildly enlarged. Abdomen: The liver is normal in size. There is no focal mass or dilatation of the biliary tree. The patient is status post cholecystectomy. The spleen, pancreas and bilateral adrenal glands are within normal limits. Bilateral kidneys are normal in size with no contour deforming mass identified. There is no radiopaque renal or ureteral calculus identified. There is no hydronephrosis or hydroureter. There is no retroperitoneal adenopathy. The abdominal aorta is of normal caliber with scattered atherosclerotic calcifications. There is a left abdominal colostomy. There is no bowel obstruction or free air. A normal appendix is identified. There is diverticulosis of the sigmoid colon with mild stranding at the mid sigmoid colon. There is no ascites. Pelvis: The bladder is unremarkable. The uterus is absent. There is no significant pelvic adenopathy or free fluid. Evaluation of the osseous structures demonstrates no suspicious lytic or blastic lesion. There are degenerative changes of the spine. There are mild compression deformities of the T11, T12 and L3 vertebral bodies with up to 50% loss in vertebral body heights. There is prior laminectomy at L3-L4 and L4-L5. IMPRESSION: Sigmoid diverticulosis with mild residual diverticulitis of the mid sigmoid, slightly decreased compared with 12/06/2016. The patient is status post left abdominal colostomy. There is no bowel obstruction. Moderate sized hiatal hernia. Mild cardiomegaly. Mild bibasilar atelectasis. Vascular calcifications reflective of atherosclerosis. Mild compression deformities of T11, T12 and L3, stable. Prior laminectomy at L3-L4 and L4-L5. Degenerative changes of the spine. .Zaheer Hoffman MD, MD Date Time Electronically viewed and signed by .Zaheer Hoffman MD, on 01/03/2017 02:20 Labs Result Diagram: 01/03/17 0050 01/03/17 0050 Medications Medications Current Medications Morphine Sulfate (morphine) 4 mg Q4 PRN IV PAIN Last administered on 01/03/17t 05:25; Admin Dose 4 MG; Start 01/03/17 at 05:30 MARY GUO Jan 03, 2017 06:23
[2017-01-03 07:51] VITALS: BP 151/66; RESP 20
[2017-01-03] MEDS: metroNIDAZOLE 500 MG/NS (PMX) 100 ML IVPB SCH ×2 (08:39→14:42)
[2017-01-03] MEDS: INSULIN ASPART [NOVOLOG] 3 ML PEN SC SCH ×3 (08:43→17:00)
[2017-01-03 08:59] LABS: INR 0.97; PROTIME 12.9 Sec (12.2-14.2)
[2017-01-03 09:00] LABS: PARTIAL THROMBOPLASTIN TIME 24.1 Sec (25.0-35.0)
[2017-01-03] MEDS: CEFEPIME 2GM/50 ML (PMX) 50 ML IVPB SCH ×2 (10:09→16:35)
--- NOTE | 2017-01-03 10:52 | CONS ---
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 Pt reports small bright red and dark clots. No dizziness /weakness/BRBPR/new abd pain/F/C/SOB/CP. On exam, pt appears well, abdomen is benign and ostomy pink with stool and gas in bag. Digitized vagina, only orange -tinged mucus seen - no bright red or old blood. LAI reveals no blood. With pt 's permission and nurse Maximus for machine adjuster leader, did rigid sigmoidoscopy - saw some mild disuse proctitis changes but no gross blood or melena. Overall, pt appears well, VS OK, abdomen is benign. On exam no obvious acute bleeding. Hct taken overnight is improved from 12/17. Discussed with pt and son Dale, no acute surgical intervention at this time, but told them she might see blood from time to time given fistula. Pt is due to see me in 2 days in office to discuss possible surgical plan. Consider Radio Division Captain for pelvic exam to r/o SCC. D/ W primary team. Problems: Consultation Date/Type/Reason Admit Date/Time Jan 03, 2017 at 04:09 Hx of Present Illness 61yo Woman h/o diverticulitis, colovaginal fistula s/p washout and loop colostomy here for blood per vagina. Pt denies new abd pain/F/C/SOB/CP. Reports some bright red and old blood. Is pt of Dr. Segura, saw me as second opinion as outpt. Constitutional: no complaints Respiratory: no complaints Cardiovascular: no complaints Genitourinary: bleeding (Dark and BRB) Past Surgical History Past Surgical Hx: appendectomy, cholecystectomy Social History Alcohol Use: none Smoking Status: Current every day smoker Drug Use: none Exam/Review of Systems Vital Signs Vitals Vital Signs Date Time Temp Pulse Resp B/P Pulse Ox O2 Delivery O2 Flow Rate FiO2 01/03/17 07:51 97.5 63 20 151/66 94 01/03/17 04:50 Room Air Exam Constitutional: alert, well developed Respiratory: clear to auscultation Cardiovascular: regular rate and rhythm Gastrointestinal: soft (NT/NM/ND. Stoma in LUQ pink with stool and gas in bag , wound well-healed) Genitourinary - Female: other (Digitized vagina, only orange-tinged mucus seen) Results Result Diagram: 01/03/17 0050 01/03/17 0050 Results 24 hrs Laboratory Tests Test 01/03/17 00:50 01/03/17 01:55 01/03/17 05:13 01/03/17 08:05 White Blood Count 9.1 # Red Blood Count 3.96 L Hemoglobin 11.6 L Hematocrit 35.6 L Mean Corpuscular Volume 89.9 Mean Corpuscular Hemoglobin 29.3 Mean Corpuscular Hemoglobin Concent 32.6 Red Cell Distribution Width 15.8 H Platelet Count 365 Mean Platelet Volume 8.8 Neutrophils % 89.0 H Lymphocytes % 6.4 L Monocytes % 4.0 Eosinophils % 0.0 Basophils % 0.0 Nucleated Red Blood Cells % 0.0 Neutrophils # 8.1 H Lymphocytes # 0.6 L Monocytes # 0.4 Eosinophils # 0.0 Basophils # 0.0 Nucleated Red Blood Cells # 0.0 Sodium Level 140 Potassium Level 4.8 Chloride Level 101 Carbon Dioxide Level 23 Anion Gap 21 H Blood Urea Nitrogen 29 H Creatinine 0.79 Glucose Level 310 H Calcium Level 9.6 Total Bilirubin 0.0 L Direct Bilirubin 0.00 Indirect Bilirubin 0.0 Aspartate Amino Transf (AST/SGOT) 19 Alanine Aminotransferase (ALT/SGPT) 23 Alkaline Phosphatase 127 H Troponin I < 0.012 Total Protein 7.1 Albumin 4.3 Globulin 2.80 Albumin/Globulin Ratio 1.53 Lipase 53 Urine Color YELLOW Urine Clarity SLIGHTLY CLOUDY A Urine pH 5.[address] [place] 1.025 Urine Ketones NEGATIVE Urine Nitrite NEGATIVE Urine Bilirubin NEGATIVE Urine Urobilinogen NEGATIVE Urine Leukocyte Esterase 3+ H Urine Microscopic RBC 28 H Urine Microscopic WBC 111 H Urine Bacteria FEW A Urine Hemoglobin 3+ H Urine Glucose 1+ H Urine Total Protein 1+ H Bedside Glucose 138 Prothrombin Time 12.9 Prothrombin Time Ratio 1.0 INR International Normalized Ratio 0.97 Activated Partial Thromboplast Time 24.1 L Test 01/03/17 08:42 Bedside Glucose 93 Medications Medications Current Medications Morphine Sulfate 4 mg 4 mg Q4 PRN IV PAIN Last administered on 01/03/17t 05:25; Admin Dose 4 MG; Start 01/03/17 at 05:30 Sodium Chloride (NS) 1,000 ml @ 75 mls/hr [id number] IV Last administered on 07:02; Admin Dose 75 MLS/HR; Start 01/03/17 at 06:34 Ondansetron HCl (Zofran Inj) 4 mg Q6H PRN IV NAUSEA AND/OR VOMITING; Start 01/03 at 07:00 Pantoprazole (Protonix Iv) 40 mg DAILY@06 IV Last administered on 01/03/17 07: 28; Admin Dose 40 MG; Start 01/03/17 at 07:00 Insulin Aspart (Novolog Insulin Pen) NOVOLOG *MILD* ALGORI... Q4 SC ; Start 01/03 at 09:00 Miscellaneous Information 1 ea NOTE XX ; Start 01/03/17 at 07:00 Glucose (Glutose) 15 gm Q15M PRN PO DECREASED GLUCOSE; Start 01/03/17 at 07:00 Glucose (Glutose) 22.5 gm Q15M PRN PO DECREASED GLUCOSE; Start 01/03/17 at 07:00 Dextrose (D50w Syringe) 25 ml Q15M PRN IV DECREASED GLUCOSE; Start 01/03/17 at 07:00 Dextrose (D50w Syringe) 50 ml Q15M PRN IV DECREASED GLUCOSE; Start 01/03/17 at 07:00 Glucagon (Glucagen) 1 mg Q15M PRN IM DECREASED GLUCOSE; Start 01/03/17 at 07:00 Glucose (Glutose) 15 gm Q15M PRN BUCCAL DECREASED GLUCOSE; Start 01/03/17 at 07: 00 Albuterol (Ventolin Hfa) 2 puff Q4H PRN INH WHEEZING; Start 01/03/17 at 07:00 Levothyroxine Sodium 75 mcg 75 mcg DAILY@06 IV ; Start 01/03/17 at 07:00 Cefepime HCl 50 ml @ 100 mls/hr Q8 IVPB Last administered on 01/03/17 10:09; Admin Dose 100 MLS/HR; Start 01/03/17 at 09:00 Metronidazole (Flagyl 500 Mg (Pmx)) 100 ml @ 100 mls/hr Q8 IVPB Last administered on 01/03/17 08:39; Admin Dose 100 MLS/HR; Start 01/03/17 at 08:00 MOY BACON M.D. Jan 03, 2017 10:42
[2017-01-03 11:00] VITALS: BP 142/80; PULSE 60
[2017-01-03 12:19] LABS: HEMATOCRIT 33.5 % (37.0-47.0); HEMOGLOBIN 10.7 g/dl (12.0-16.0)
--- NOTE | 2017-01-03 14:01 | PDOCDIS ---
Discharge Instructions CONDITION Patient Condition: Stable HOME CARE INSTRUCTIONS: Special Diet: carb control ACTIVITY: Activity Restrictions: Slowly Increase Activity FOLLOW UP/APPOINTMENTS Follow-up Plan Please take your medications, see your doctor in the clinic in 1 week. ABDIEL DAVIS Jan 03, 2017 14:01
--- NOTE | 2017-01-03 14:07 | DS ---
Date/Time of Note Date/Time of Note DATE: 01/03/17 TIME: 14:03 Discharge Summary Admission/Discharge Info Admit Date/Time Jan 03, 2017 at 04:09 Discharge Date/Time Discharge Diagnosis 1. diverticulitis 2. vaginal bleeding likely sec to colovaginal fistula 3. colovaginal fistula s/p loop colostomy here for blood per vagina 4. smoker - counseled on cessation Patient Condition: Stable Hx of Present Illness cc: abdominal pain, vaginal bleeding This is a 61-year-old female blood in her stools for the past 3 days out of the colostomy bag as well as vaginal bleeding for 3 days. No fevers no chills. Mild abdominal pain associated with this blood. History of diverticulitis in the past. Mild nausea but no vomiting. No fevers or chills. She also states she has noticed vaginal bleeding. She states she was told by her surgeon that she likely is bleeding through a rectovaginal fistula. However during the time no surgery was recommended. She has a new surgeon and she would like to have him consulted. Dr. Cherry. Hospital Course 61YO Woman h/o diverticulitis and colovaginal fistula s/p loop colostomy here for blood per vagina. Pt reports small bright red and dark clots. No dizziness /weakness/BRBPR/new abd pain/F/C/SOB/CP. Pt was made NPO, given pain meds, seen by colorectal surgeon, and on their exam pt appeared well, abdomen is benign and ostomy pink with stool and gas in bag. Digitized vagina, only orange- tinged mucus seen - no bright red or old blood. LAI reveals no blood. Rigid sigmoidoscopy was performed - saw some mild disuse proctitis changes but no gross blood or melena. VS OK, abdomen is benign. H/H were stable. Discussed with pt and son Dale, no acute surgical intervention at this time, but told them she might see blood from time to time given fistula. ObGYN exam was pending by the time of d/c today, if neg findings, pt will be d/c home. Pt is due to follow up with colorectal surgeon in 2 days in office to discuss possible surgical plan. Home Meds Active Scripts Silver Sulfadiazine (THERMAZENE 1% 25 GM) 1 Applic Cr, 1 APPLIC TOP BID for 10 Days, #10 2 Refills Prov:CHIKYARAPPA,CJ K MD 12/10/16 Magnesium Oxide* (Magnesium Oxide*) 400 Mg Tablet, 400 MG PO BID for 10 Days, # 20 TAB Prov:CJ BRITO MD 12/10/16 Docusate Sodium* (Docusate Sodium* Liq) 50 Mg/5 Ml Liquid, 100 MG PO DAILY for 10 Days, #10 3 Refills Prov:CJ BRITO MD 12/10/16 Reported Medications Insulin Glulisine (Apidra Solostar) 100 Unit/1 Ml Insuln.pen, 12 UNIT SQ TID, # 1 TUB 12/06/16 Calcium Citrate/Vitamin D2 (Calcium with Vit D Tablet) 1 Each Tablet, 1 EACH PO , TAB 12/06/16 Cyclobenzaprine Hcl* (Cyclobenzaprine Hcl*) 10 Mg Tablet, 10 MG PO Q8 Y for MUSCLE SPASM, #60 TAB 12/06/16 Tramadol Hcl* (Ultram*) 50 Mg Tablet, 50 MG PO Q6H Y for PAIN, TAB 12/06/16 Ranitidine Hcl* (Ranitidine Hcl*) 150 Mg Tablet, 150 MG PO HS, #30 TAB 12/06/16 Indomethacin* (Indocin*) 25 Mg Capsule, 75 MG PO BID, CAP 12/06/16 Ergocalciferol (Vitamin D2) (VITAMIN D2) 50,000 Unit Capsule, 65223 UNIT PO QMON , CAP 12/06/16 Atorvastatin Calcium* (Atorvastatin Calcium*) 20 Mg Tablet, 20 MG PO QHS, #30 TAB 12/06/16 Gabapentin* (Gabapentin*) 100 Mg Capsule, 200 MG PO QHS, #90 CAP 12/06/16 Gabapentin* (Gabapentin*) 100 Mg Capsule, 100 MG PO WITH BREAKFAST, #90 CAP 12/06/16 Calcium Carbonate* (Calcium Carbonate*) 600 MG Ca Tab, 1000 MG PO Q4 Y for UPSET STOMACH, TAB 10/09/16 Paroxetine Hcl* (Paroxetine*) 40 Mg Tablet, 40 MG PO DAILY, TAB 10/09/16 Pantoprazole (Protonix) 40 Mg Tabec, 40 MG PO DAILY, TAB 10/09/16 Metformin* (Glucophage*) 1,000 Mg Tablet, 1000 MG PO BID, #60 TAB 10/09/16 Levothyroxine Sodium* (Synthroid*) 150 Mcg Tablet, 150 MCG PO BEFORE BREAKFAST, #30 TAB 10/09/16 Insulin Glargine* (Lantus*) 100 Unit/Ml Soln, 25 UNIT SC QHS, #1 VIAL 10/09/16 Hydrocodone/Acetaminophen ([place] 5-325 Tablet) 1 Each Tablet, 1 EACH PO Q6 Y for PAIN, TAB 10/09/16 Albuterol Sulfate (Proair Respiclick) 90 Mcg Aer.pow.ba, 2 PUFFS INHALATION Q4 Y for WHEEZING, BOTTLE MED FROM HOME 10/09/16 Prednisone* (Prednisone*) 5 Mg Tab, 5 MG PO DAILY, TAB 01/28/16 Duloxetine Hcl* (Duloxetine Hcl*) 60 Mg Capsule.dr, 60 MG PO BID, #30 CAP 01/28/16 Primary Care Provider Pat Engel MD Pending Labs Laboratory Tests Test 01/03/17 00:50 01/03/17 01:55 01/03/17 05:13 01/03/17 08:05 White Blood Count 9.110^3/ul (4.8-10.8) Red Blood Count 3.9610^6/ul (4.20-5.40) Hemoglobin 11.6g/dl (12.0-16.0) Hematocrit 35.6% (37.0-47.0) Mean Corpuscular Volume 89.9fl (82.0-101.0) Mean Corpuscular Hemoglobin 29.3pg (29.0-33.0) Mean Corpuscular Hemoglobin Concent 32.6g/dl (32.0-37.0) Red Cell Distribution Width 15.8% (11.5-14.5) Platelet Count 62408^3/UL (140-415) Mean Platelet Volume 8.8fl (7.4-10.4) Neutrophils % 89.0% (39.0-77.0) Lymphocytes % 6.4% (15.0-51.0) Monocytes % 4.0% (0.0-11.0) Eosinophils % 0.0% (0.0-7.0) Basophils % 0.0% (0.0-2.0) Nucleated Red Blood Cells % 0.0/100WBC (0.0-0.0) Neutrophils # 8.110^3/ul (1.6-7.5) Lymphocytes # 0.610^3/ul (0.8-2.9) Monocytes # 0.410^3/ul (0.3-0.9) Eosinophils # 0.010^3/ul (0.0-0.5) Basophils # 0.010^3/ul (0.0-0.1) Nucleated Red Blood Cells # 0.010^3/ul (0.0-0.0) Sodium Level 140mmol/L (135-144) Potassium Level 4.8mmol/L (3.5-5.1) Chloride Level 101mmol/L (97-110) Carbon Dioxide Level 23mmol/L (21-31) Anion Gap 21 (8-16) Blood Urea Nitrogen 29mg/dl (7-20) Creatinine 0.79mg/dl (0.44-1.00) Glucose Level 310mg/dl (70-220) Calcium Level 9.6mg/dl (8.4-10.2) Total Bilirubin 0.0mg/dl (0.2-1.3) Direct Bilirubin 0.00mg/dl (0.00-0.20) Indirect Bilirubin 0.0mg/dl (0-1.1) Aspartate Amino Transf (AST/SGOT) 19IU/L (15-46) Alanine Aminotransferase (ALT/SGPT) 23IU/L (13-69) Alkaline Phosphatase 127IU/L (42-121) Troponin I < 0.012ng/ml (0.00-0.12) Total Protein 7.1g/dl (6.1-8.1) Albumin 4.3g/dl (3.3-4.9) Globulin 2.80g/dl (1.3-3.2) Albumin/Globulin Ratio 1.53 Lipase 53U/L (23-300) Urine Color YELLOW (YELLOW) Urine Clarity SLIGHTLY CLOUDY (CLEAR) Urine pH 5.0 (5.0-9.0) Urine Specific [place] 1.025 (1.003-1.030) Urine Ketones NEGATIVEmg/dL (NEGATIVE) Urine Nitrite NEGATIVEmg/dL (NEGATIVE) Urine Bilirubin NEGATIVEmg/dL (NEGATIVE) Urine Urobilinogen NEGATIVEmg/dL (NEGATIVE) Urine Leukocyte Esterase 3+Jamilah/ul (NEGATIVE) Urine Microscopic RBC 28/HPF (0-5) Urine Microscopic WBC 111/HPF (0-5) Urine Bacteria FEW/HPF (NONE SEEN) Urine Hemoglobin 3+mg/dL (NEGATIVE) Urine Glucose 1+mg/dL (NEGATIVE) Urine Total Protein 1+mg/dl (NEGATIVE) Bedside Glucose 138mg/dL (70-220) Prothrombin Time 12.9Sec (12.2-14.2) Prothrombin Time Ratio 1.0 INR International Normalized Ratio 0.97 Activated Partial Thromboplast Time 24.1Sec (25.0-35.0) Test 01/03/17 08:42 01/03/17 12:01 01/03/17 13:17 Bedside Glucose 93mg/dL (70-220) 84mg/dL (70-220) Hemoglobin 10.7g/dl (12.0-16.0) Hematocrit 33.5% (37.0-47.0) ABDIEL DAVIS Jan 03, 2017 14:07
--- NOTE | 2017-01-03 17:12 | CONS ---
Date/Time of Note Date/Time of Note DATE: 01/03/17 TIME: 17:02 Consultation Date/Type/Reason Admit Date/Time This patient is a 61 years old 4 para 4 who had all deliveries vaginal. she had a hysterectomy due to vaginal bleeding about 20 years ago apparently her ovaries were removed at that time She came to the hospital due to slight vaginal bleeding. She has a history of diverticulitis and rectovaginal fistula which of the loop colostomy On pelvic and abdominal ultrasound as well as CAT scan there is no evidence of uterus or ovaries. No pelvic mass. No fluid collection in the pelvis I did a gentle pelvic examination with my index finger only. The vaginal mucosa is soft no irregularity or tenderness at the end of the vagina there is some firmness opening witch is a rectovaginal fistula Only small amount of pink mucous was noted on the fingertip. No uterus adnexa or any mass could be palpated in the vagina Reason for Consultation January 03, 2017 Hospital consult Hx of Present Illness Laboratory Tests Test 01/03/17 00:50 01/03/17 01:55 01/03/17 05:13 01/03/17 08:05 White Blood Count 9.110^3/ul Red Blood Count 3.9610^6/ul Hemoglobin 11.6g/dl Hematocrit 35.6% Mean Corpuscular Volume 89.9fl Mean Corpuscular Hemoglobin 29.3pg Mean Corpuscular Hemoglobin Concent 32.6g/dl Red Cell Distribution Width 15.8% Platelet Count 78116^3/UL Mean Platelet Volume 8.8fl Neutrophils % 89.0% Lymphocytes % 6.4% Monocytes % 4.0% Eosinophils % 0.0% Basophils % 0.0% Nucleated Red Blood Cells % 0.0/100WBC Neutrophils # 8.110^3/ul Lymphocytes # 0.610^3/ul Monocytes # 0.410^3/ul Eosinophils # 0.010^3/ul Basophils # 0.010^3/ul Nucleated Red Blood Cells # 0.010^3/ul Sodium Level 140mmol/L Potassium Level 4.8mmol/L Chloride Level 101mmol/L Carbon Dioxide Level 23mmol/L Anion Gap 21 Blood Urea Nitrogen 29mg/dl Creatinine 0.79mg/dl Glucose Level 310mg/dl Calcium Level 9.6mg/dl Total Bilirubin 0.0mg/dl Direct Bilirubin 0.00mg/dl Indirect Bilirubin 0.0mg/dl Aspartate Amino Transf (AST/SGOT) 19IU/L Alanine Aminotransferase (ALT/SGPT) 23IU/L Alkaline Phosphatase 127IU/L Troponin I < 0.012ng/ml Total Protein 7.1g/dl Albumin 4.3g/dl Globulin 2.80g/dl Albumin/Globulin Ratio 1.53 Lipase 53U/L Urine Color YELLOW Urine Clarity SLIGHTLY CLOUDY Urine pH 5.0 Urine Specific [place] 1.025 Urine Ketones NEGATIVEmg/dL Urine Nitrite NEGATIVEmg/dL Urine Bilirubin NEGATIVEmg/dL Urine Urobilinogen NEGATIVEmg/dL Urine Leukocyte Esterase 3+Jamilah/ul Urine Microscopic RBC 28/HPF Urine Microscopic WBC 111/HPF Urine Bacteria FEW/HPF Urine Hemoglobin 3+mg/dL Urine Glucose 1+mg/dL Urine Total Protein 1+mg/dl Bedside Glucose 138mg/dL Prothrombin Time 12.9Sec Prothrombin Time Ratio 1.0 INR International Normalized Ratio 0.97 Activated Partial Thromboplast Time 24.1Sec Test 01/03/17 08:42 01/03/17 12:01 01/03/17 13:17 Bedside Glucose 93mg/dL 84mg/dL Hemoglobin 10.7g/dl Hematocrit 33.5% Current Medications Medications (Trade) Dose Ordered Sig/[place] Route PRN Reason Start Time Stop Time Status Last Admin Dose Admin Sodium Chloride (NS) 500 ml @ 500 mls/hr Q1H STAT IV 01/03/17 00:44 01/03/17 01:43 DC 01/03/17 01:01 500 MLS/HR Morphine Sulfate (morphine) 4 mg ONCE STAT IV 01/03/17 00:55 01/03/17 00:56 DC 01/03/17 01:01 4 MG Ondansetron HCl (Zofran Inj) 4 mg ONCE STAT IV 01/03/17 00:55 01/03/17 00:56 DC 01/03/17 01:01 4 MG Morphine Sulfate 4 mg 4 mg Q4 PRN IV PAIN 01/03/17 05:30 01/03/17 13:28 4 MG Sodium Chloride (NS) 1,000 ml @ 75 mls/hr [id number] IV 01/03/17 06:34 01/03/17 07:02 75 MLS/HR IV Flush (NS 3 ml) 3 ml PER PROTOCOL IV 01/03/17 07:00 Ondansetron HCl (Zofran Inj) 4 mg Q6H PRN IV NAUSEA AND/OR VOMITING 01/03/17 07:00 Pantoprazole (Protonix Iv) 40 mg DAILY@06 IV 01/03/17 07:00 01/03/17 07:28 40 MG Miscellaneous Information (* Miscellaneous Pharmacy Order) Discontinue current oral sulfonylur... ONCE ONCE XX 01/03/17 07:00 01/03/17 07:01 DC Diagnostic Test (Pha) (Accu-Chek) 1 ea 02 XX 01/04/17 02:00 01/04/17 02:00 DC Miscellaneous Information (* Miscellaneous Pharmacy Order) HYPOGLYCEMIA PROTOCOL w... ONCE ONCE XX 01/03/17 07:00 01/03/17 07:01 DC Insulin Aspart (Novolog Insulin Pen) NOVOLOG *MILD* ALGORI... Q4 SC 01/03/17 09:00 Miscellaneous Information (* Miscellaneous Pharmacy Order) Discontinue all previ... ONCE ONCE XX 01/03/17 07:00 01/03/17 07:01 DC Miscellaneous Information 1 ea NOTE XX 01/03/17 07:00 Glucose (Glutose) 15 gm Q15M PRN PO DECREASED GLUCOSE 01/03/17 07:00 Glucose (Glutose) 22.5 gm Q15M PRN PO DECREASED GLUCOSE 01/03/17 07:00 Dextrose (D50w Syringe) 25 ml Q15M PRN IV DECREASED GLUCOSE 01/03/17 07:00 Dextrose (D50w Syringe) 50 ml Q15M PRN IV DECREASED GLUCOSE 01/03/17 07:00 Glucagon (Glucagen) 1 mg Q15M PRN IM DECREASED GLUCOSE 01/03/17 07:00 Glucose (Glutose) 15 gm Q15M PRN BUCCAL DECREASED GLUCOSE 01/03/17 07:00 Miscellaneous Information 2 puffs Q4 PRN INHALATION WHEEZING 01/03/17 07:00 01/03/17 07:00 DC Albuterol (Ventolin Hfa) 2 puff Q4H PRN INH WHEEZING 01/03/17 07:00 Levothyroxine Sodium 75 mcg 75 mcg DAILY@06 IV 01/03/17 07:00 01/03/17 14:43 75 MCG Cefepime HCl 50 ml @ 100 mls/hr Q8 IVPB 01/03/17 09:00 01/03/17 16:35 100 MLS/HR Metronidazole (Flagyl 500 Mg (Pmx)) 100 ml @ 100 mls/hr Q8 IVPB 01/03/17 08:00 01/03/17 14:42 100 MLS/HR Constitutional: no complaints, No chills, No diaphoresis, No disoriented, No febrile, No improved, No other , No poor po, No requiring IVF, No requiring O2 Eyes: No discharge, No no complaints, No other, No pain, No redness, No visual change ENT: No bleeding, No congestion, No discharge, No dysphagia, No no complaints, No other, No pain, No sore throat Respiratory: no complaints, other (No rales), No cough, No pain, No pleuritic pain, No shortness of breath, No sputum, No wheezing Cardiovascular: no complaints, other (Normal sinus rhythm), No chest pain, No edema, No lightheadedness, No orthopenea, No palpitations, No paroxysmal nocturnal dyspnea Gastrointestinal: other (As I mentioned she has colostomy and rectovaginal fistula), No blood, No constipation, No decreased appetite, No diarrhea, No flatus, No nausea, No no complaints, No pain, No passing stool, No vomiting Genitourinary: bleeding (Dark and BRB), other (Slight pink discharge and vagina evidence of fistula at the apex of the vagina no pelvic mass palpated), No discharge, No dysuria, No flank pain, No hematuria, No no complaints Musculoskeletal: No back pain, No bone/joint pain, No neck pain, No no complaints, No other, No restricted range of motion, No swelling Additional Comments Imaging studies were reviewed as well as the lab tests Her problems appear to be rectovaginal fistula no other gynecological finding These findings were discussed with Dr. Eng our hospitalist and she will be discharged home today. Past Surgical History Past Surgical Hx: appendectomy, cholecystectomy Social History Alcohol Use: none Smoking Status: Current every day smoker Drug Use: none Exam/Review of Systems Vital Signs Vitals Vital Signs Date Time Temp Pulse Resp B/P Pulse Ox O2 Delivery O2 Flow Rate FiO2 01/03/17 11:00 60 142/80 01/03/17 07:51 97.5 20 94 01/03/17 04:50 Room Air Results Result Diagram: 01/03/17 1201 01/03/17 0050 Results 24 hrs Laboratory Tests Test 01/03/17 00:50 01/03/17 01:55 01/03/17 05:13 01/03/17 08:05 White Blood Count 9.1 # Red Blood Count 3.96 L Hemoglobin 11.6 L Hematocrit 35.6 L Mean Corpuscular Volume 89.9 Mean Corpuscular Hemoglobin 29.3 Mean Corpuscular Hemoglobin Concent 32.6 Red Cell Distribution Width 15.8 H Platelet Count 365 Mean Platelet Volume 8.8 Neutrophils % 89.0 H Lymphocytes % 6.4 L Monocytes % 4.0 Eosinophils % 0.0 Basophils % 0.0 Nucleated Red Blood Cells % 0.0 Neutrophils # 8.1 H Lymphocytes # 0.6 L Monocytes # 0.4 Eosinophils # 0.0 Basophils # 0.0 Nucleated Red Blood Cells # 0.0 Sodium Level 140 Potassium Level 4.8 Chloride Level 101 Carbon Dioxide Level 23 Anion Gap 21 H Blood Urea Nitrogen 29 H Creatinine 0.79 Glucose Level 310 H Calcium Level 9.6 Total Bilirubin 0.0 L Direct Bilirubin 0.00 Indirect Bilirubin 0.0 Aspartate Amino Transf (AST/SGOT) 19 Alanine Aminotransferase (ALT/SGPT) 23 Alkaline Phosphatase 127 H Troponin I < 0.012 Total Protein 7.1 Albumin 4.3 Globulin 2.80 Albumin/Globulin Ratio 1.53 Lipase 53 Urine Color YELLOW Urine Clarity SLIGHTLY CLOUDY A Urine pH 5.0 Urine Specific [place] 1.025 Urine Ketones NEGATIVE Urine Nitrite NEGATIVE Urine Bilirubin NEGATIVE Urine Urobilinogen NEGATIVE Urine Leukocyte Esterase 3+ H Urine Microscopic RBC 28 H Urine Microscopic WBC 111 H Urine Bacteria FEW A Urine Hemoglobin 3+ H Urine Glucose 1+ H Urine Total Protein 1+ H Bedside Glucose 138 Prothrombin Time 12.9 Prothrombin Time Ratio 1.0 INR International Normalized Ratio 0.97 Activated Partial Thromboplast Time 24.1 L Test 01/03/17 08:42 01/03/17 12:01 01/03/17 13:17 Bedside Glucose 93 84 Hemoglobin 10.7 L Hematocrit 33.5 L Medications Medications Current Medications Morphine Sulfate 4 mg 4 mg Q4 PRN IV PAIN Last administered on 01/03/17t 13:28; Admin Dose 4 MG; Start 01/03/17 at 05:30 Sodium Chloride (NS) 1,000 ml @ 75 mls/hr [id number] IV Last administered on 07:02; Admin Dose 75 MLS/HR; Start 01/03/17 at 06:34 Ondansetron HCl (Zofran Inj) 4 mg Q6H PRN IV NAUSEA AND/OR VOMITING; Start 01/03 at 07:00 Pantoprazole (Protonix Iv) 40 mg DAILY@06 IV Last administered on 01/03/17 07: 28; Admin Dose 40 MG; Start 01/03/17 at 07:00 Insulin Aspart (Novolog Insulin Pen) NOVOLOG *MILD* ALGORI... Q4 SC ; Start 01/03 at 09:00 Miscellaneous Information 1 ea NOTE XX ; Start 01/03/17 at 07:00 Glucose (Glutose) 15 gm Q15M PRN PO DECREASED GLUCOSE; Start 01/03/17 at 07:00 Glucose (Glutose) 22.5 gm Q15M PRN PO DECREASED GLUCOSE; Start 01/03/17 at 07:00 Dextrose (D50w Syringe) 25 ml Q15M PRN IV DECREASED GLUCOSE; Start 01/03/17 at 07:00 Dextrose (D50w Syringe) 50 ml Q15M PRN IV DECREASED GLUCOSE; Start 01/03/17 at 07:00 Glucagon (Glucagen) 1 mg Q15M PRN IM DECREASED GLUCOSE; Start 01/03/17 at 07:00 Glucose (Glutose) 15 gm Q15M PRN BUCCAL DECREASED GLUCOSE; Start 01/03/17 at 07: 00 Albuterol (Ventolin Hfa) 2 puff Q4H PRN INH WHEEZING; Start 01/03/17 at 07:00 Levothyroxine Sodium 75 mcg 75 mcg DAILY@06 IV Last administered on 01/03/17 14 :43; Admin Dose 75 MCG; Start 01/03/17 at 07:00 Cefepime HCl 50 ml @ 100 mls/hr Q8 IVPB Last administered on 01/03/17 16:35; Admin Dose 100 MLS/HR; Start 01/03/17 at 09:00 Metronidazole (Flagyl 500 Mg (Pmx)) 100 ml @ 100 mls/hr Q8 IVPB Last administered on 7/4/17at 14:42; Admin Dose 100 MLS/HR; Start 01/03/17 at 08:00 LON HARRINGTON MD Jan 03, 2017 17:12
[2017-01-03 18:04] LABS: HEMATOCRIT 33.2 % (37.0-47.0); HEMOGLOBIN 10.7 g/dl (12.0-16.0)
[2017-01-04] MEDS ORDERED: ACCU-CHEK XX SCH (02:00)
== END 2017-01-03 19:00 | disposition home or self-care (01) | DRG 392 ==
LOC: E/R 00:18 → PP2 04:09
PROVIDERS: ADMIT Internal Medicine; ATTEND Internal Medicine
DX: K57.92 Diverticulitis of intestine, part unspecified, without perforation or abscess without bleeding (principal); N82.2 Fistula of vagina to small intestine; D64.9 Anemia, unspecified; E11.9 Type 2 diabetes mellitus without complications; E03.9 Hypothyroidism, unspecified; F32.9 Major depressive disorder, single episode, unspecified; R91.8 Other nonspecific abnormal finding of lung field; J45.909 Unspecified asthma, uncomplicated; Z93.3 Colostomy status; F17.210 Nicotine dependence, cigarettes, uncomplicated; Z90.710 Acquired absence of both cervix and uterus
CPT/HCPCS: 36415; 71010; 74176; 80053; 81001; 82962; 83690; 84484; 85014; 85018; 85025; 85610; 85730; 86850; 86900; 86901; 87086; 93005; 96374; 96375; C9113; J0692; J1815; J2270; J2405; J7030; J7040

== ENCOUNTER 2017-02-08 10:30 | Inpatient (IN) | payer BC ==
[~2017-02-08] VITALS: Ht 152.4 cm; Wt 62.0 kg
[~2017-02-08 10:30] MED LIST changes: -CALC600T11 PO; +CALC600T24 PO; -PRED5 PO; +PRED5TAB PO
[2017-04-03] VITALS (27 sets, daily range): BP systolic 104–181; BP diastolic 52–87; PULSE 77–105; RESP 16–28; Ht 152.4 cm; Wt 62.0 kg
[2017-04-03] MEDS ORDERED: EPHEDrine SULFATE 50 MG/5 ML SYG ONE (07:00)
[2017-04-03] MEDS ORDERED: CEFAZOLIN 2 GM/50 ML (PMX) 50 ML IVPB ONE (10:30)
[2017-04-03] MEDS ORDERED: Metronidazole 500 MG in NS 100 ML IVPB ONE (10:30)
[2017-04-03] MEDS ORDERED: MIDAZOLAM 1 MG/ML 2 ML INJ ONE (11:04)
[2017-04-03] MEDS ORDERED: ROCURONIUM 50 MG INJ ONE ×2 (11:04→15:53)
[2017-04-03] MEDS ORDERED: SIMV20TA PO (11:04)
[2017-04-03] MEDS ORDERED: FENTAnyl 50 MCG/ML VIAL ONE (11:04)
[2017-04-03] MEDS ORDERED: ATEN-51 PO (11:04)
[2017-04-03] MEDS ORDERED: PROPOFOL 20 ML ONE (11:04)
[2017-04-03] MEDS ORDERED: SUCCINYLCHOLINE CHLORIDE 100 MG/5 ML SYG IV ONE (11:04)
[2017-04-03] MEDS ORDERED: LIDOCAINE 2% (SDV) 5 ML INJ ONE (11:04)
[2017-04-03] MEDS ORDERED: GLIP5TAB13 PO (11:05)
[2017-04-03] MEDS ORDERED: INSU100I17 SQ (11:06)
[2017-04-03] MEDS ORDERED: FER325 PO (11:06)
[2017-04-03] MEDS ORDERED: FLUT200B INHALATION (11:08)
[2017-04-03] MEDS ORDERED: LANT3I SC (11:12)
[2017-04-03] MEDS ORDERED: CYCL5TAB PO (11:13)
[2017-04-03] MEDS ORDERED: PRED5TAB PO (11:13)
[2017-04-03] MEDS ORDERED: LABETALOL HCL 20MG INJ IV PRN (11:30)
[2017-04-03] MEDS ORDERED: ONDANSETRON 4 MG INJ IV PRN ×2 (11:30→15:30)
[2017-04-03] MEDS ORDERED: OXYCODONE/ACETAMINOPHEN (5/325) TAB PO PRN ×2 (11:30)
[2017-04-03] MEDS ORDERED: PROCHLORPERAZINE 10 MG INJ IV PRN (11:30)
[2017-04-03] MEDS ORDERED: DIPHENHYDRAMINE 50 MG INJ IV PRN (11:30)
[2017-04-03] MEDS ORDERED: HYDROmorphONE (0.2 MG/ML) 10ML SYG IV PRN ×2 (11:30)
[2017-04-03] MEDS ORDERED: MEPERIDINE 25 MG INJ IV PRN (11:30)
[2017-04-03] MEDS ORDERED: INSULIN ASPART [NOVOLOG] 3 ML PEN SC ONE (11:30)
[2017-04-03] MEDS ORDERED: EPHEDrine SULFATE 50 MG/5 ML SYG IV PRN (11:30)
[2017-04-03] MEDS ORDERED: hydrALAzine 20 MG INJ IV PRN ×2 (11:30→16:00)
--- NOTE | 2017-04-03 12:24 | HPN ---
Date/Time of Note Date/Time of Note DATE: 04/03/17 TIME: 12:23 Interval H&P Admission Note Pt. seen H&P reviewed: No system changes WAYNE RIZVI MD Apr 03, 2017 12:24
--- NOTE | 2017-04-03 12:50 | HPN ---
Date/Time of Note Date/Time of Note DATE: 04/03/17 TIME: 12:49 Interval H&P Admission Note Pt. seen H&P reviewed: No system changes MOY BACON M.D. Apr 03, 2017 12:50
[2017-04-03] MEDS ORDERED: PHENYLephrine (100 MCG/ML) 5ML SYG ONE (14:31)
[2017-04-03] MEDS ORDERED: metroNIDAZOLE 500 MG/NS (PMX) 100 ML IVPB ONE (14:36)
[2017-04-03] MEDS ORDERED: CEFAZOLIN 1 GM INJ ONE (14:36)
[2017-04-03] MEDS ORDERED: ACETAMINOPHEN 1000MG/100ML IV 100 ML ONE (14:54)
[2017-04-03] MEDS ORDERED: KETAMINE 500 MG INJ ONE (14:55)
[2017-04-03] MEDS ORDERED: ONDANSETRON 4 MG INJ ONE (15:01)
[2017-04-03] MEDS ORDERED: DEXAMETHASONE 4 MG/ML 1 ML INJ ONE (15:01)
[2017-04-03] MEDS ORDERED: METOCLOPRAMIDE 10 MG INJ ONE (15:01)
[2017-04-03] MEDS ORDERED: HYDROmorphONE 2 MG/ML SYG ONE (15:27)
[2017-04-03] MEDS ORDERED: ALBUTEROL/IPRATROPIUM (NEB) 3 ML AMP HHN PRN (15:30)
[2017-04-03] MEDS ORDERED: NACL 0.9% 3 ML SYG IV SCH (15:30)
[2017-04-03] MEDS ORDERED: HYDROCODONE/APAP (5/325) TAB PO PRN (15:30)
[2017-04-03] MEDS ORDERED: CYCLOBENZAPRINE 10 MG TAB PO PRN (15:30)
[2017-04-03] MEDS ORDERED: ACETAMINOPHEN 650 MG SUPP PR PRN (15:30)
[2017-04-03] MEDS ORDERED: ACETAMINOPHEN 325 MG TAB PO PRN (15:30)
--- NOTE | 2017-04-03 15:41 | CONS ---
Date/Time of Note Date/Time of Note DATE: 04/03/17 TIME: 15:33 Assessment/Plan Assessment/Plan Chief Complaint/Hosp Course 62-year-old female who was brought by her surgeon for elective sigmoid resection with possible takedown of colostomy, cystoscopy with ureteral stent/ catheter placement. 1.History of diverticular abscess/diverticulitis and rectovaginal fistula. Status post exploratory laparotomy, I and D of pelvic abscess and diverting colostomy. -For elective Open sigmoidectomy with possible takedown of colostomy WITH Cystoscopy and insertion of bilateral ureteral catheters. -F/u surgery recs postoperatively 2. Essential hypertension. Stable. -Resume home medications once stable for oral. For now, patient will be treated with IV hydralazine for SBP greater than 160. 3. DMII -Resume home Lantus at 40 units daily. Obtain A1c. -Accu-Cheks/ISS/pre-meal aspart 6 units 3 times daily. Will titrate as indicated. 4. Hypercholesterolemia. -Resume statin once stable for oral. Obtain lipid panel. 5. Arthritis. -Resume home medications. 6. Hypothyroidism. -Resume Synthroid once stable for oral. Obtain TSH and titrate dose per need. 7. Tobacco use. -Cessation advised. DVT prophylaxis: Per surgery PUD prophylaxis: Pepcid. Plan: Postoperative fluids, pain, antibiotics and anticoagulation management per surgery. We will continue to manage her underlying medical illness. Follow -up with a.m. labs. Thank you for allowing us to partake in the care of this pleasant lady. Approximately 60 minutes was spent on this consultation. Patient was seen in collaboration with Dr. Zhou. Problems: Consultation Date/Type/Reason Admit Date/Time Apr 03, 2017 at 10:32 Date of Consultation: Apr 03, 2017 Type of Consultation: Internal medicine Referring Provider: MOY BACON M.D. Hx of Present Illness This is a 61 year old female with a past medical history of diverticular abscess, rectovaginal fistula, status post explore lap, IND of pelvic abscess and diverting colostomy, who was brought by her surgeon electively for sigmoid resection, possible takedown of colostomy, and cystoscopy with insertion of ureteral catheter. Hospitalist consult was requested for diabetes and hypertension management. Patient denied chest pain, shortness of breath, palpitation, nausea, vomiting, abdominal pain, rectal bleed , hematemesis, hematochezia or vaginal bleeding. She was seen in the preop area. Current labs with glucose 182. Vital signs within acceptable range. A 12 point review of system was assessed and is negative other than what is mentioned in the HPI. Past Medical History See HPI Past Surgical History See HPI Past Surgical Hx: appendectomy, cholecystectomy Social History Patient denied history of alcohol or illicit drug use. She smokes occasionally 2-3 cigarettes per day. Smoking Status: Current every day smoker Exam/Review of Systems Vital Signs Vitals Vital Signs Date Time Temp Pulse Resp B/P Pulse Ox O2 Delivery O2 Flow Rate FiO2 04/03/17 11:58 97.8 100 16 146/87 96 Room Air Exam General: Well developed,adequately built, not in any acute distress . HEENT: Normocephalic, Atraumatic, No laceration or hematoma; Eyes: PEERL, Conjunctiva clear, Anicteric sclera Neck: Supple without any lymphadenopathy, nontender, no JVD, no carotid bruits, trachea midline, no thyromegaly Cardiac: S1, S2 auscultated, regular rhythm and rate, no mumurs or gallop Pulmonary: Normal respiratory effort. Chest clear to auscultation bilaterally, no adventitious breath sounds GI: Left upper quadrant colostomy bag draining stool. Stoma intact. Otherwise , abdomen normal to inspection. Soft, non tender, non- distended, no masses, no rebound tenderness or guarding. Bowel sounds active on all four quadrants Genitourinary: Deferred Extremities: No cyanosis, clubbing, or edema. Pulses [2+] bilaterally. Full ROM on all four extremities. No focal weakness appreciated. Neurologic: Alert to person, place, time, and situation. Affect appropriate, intact sensation. Skin: Clean,dry, and intact. No ecchymosis, no rashes, or lesions Results Results 24 hrs Laboratory Tests Test 04/03/17 11:42 Bedside Glucose 182 MANE MATA NP Apr 03, 2017 15:41
[2017-04-03] MEDS ORDERED: GLUCAGON 1 MG INJ IM PRN (16:00)
[2017-04-03] MEDS ORDERED: GLUCOSE GEL 15 GRAM TUBE BUCCAL PRN (16:00)
[2017-04-03] MEDS ORDERED: GLUCOSE GEL 15 GRAM TUBE PO PRN ×2 (16:00)
[2017-04-03] MEDS ORDERED: DEXTROSE 50% 50 ML SYRINGE IV PRN (16:00)
[2017-04-03] MEDS ORDERED: SUGAMMADEX SODIUM 200 MG/2 ML VIAL IV ONE (16:56)
[2017-04-03] MEDS ORDERED: ALBUTEROL/IPRATROPIUM (NEB) 3 ML AMP HHN SCH (17:00)
[2017-04-03] MEDS ORDERED: ERGOCALCIFEROL 50,000 UNIT CAP PO SCH (17:00)
[2017-04-03] MEDS ORDERED: BUPIVACAINE 0.5% (SDV) 30 ML INJ ONE (17:06)
[2017-04-03] MEDS ORDERED: KETOROLAC 30 MG INJ ONE (17:12)
[2017-04-03] MEDS ORDERED: ACETAMINOPHEN 1000MG/100ML IV 100 ML IVPB SCH (17:30)
[2017-04-03] MEDS ORDERED: NALOXONE (0.4 MG/ML) INJ IV PRN (17:30)
[2017-04-03] MEDS ORDERED: CEFAZOLIN IVPB SCH (17:30)
[2017-04-03] MEDS ORDERED: SOD CHLORIDE 0.9% IVPB SCH (17:30)
--- NOTE | 2017-04-03 17:44 | SIPON ---
Date/Time of Note Date/Time of Note DATE: 04/03/17 TIME: 17:43 Operative Report Preoperative Diagnosis Diverticulitis Postoperative Diagnosis Diverticulitis Operation/Procedure Performed Open sigmoid resection, proctosigmoidoscopy Surgeon see signature line hardware sales assistant Andrez Barros Anesthesia: general Estimated blood loss: 50 - 100 ml's Transfusion Required none Specimen Rectosigmoid Grafts/Implants none Complications none MOY BACON M.D. Apr 03, 2017 17:44
[2017-04-03] MEDS: INSULIN ASPART [NOVOLOG] 3 ML PEN SC SCH (18:00)
[2017-04-03] MEDS ORDERED: INSULIN ASPART [NOVOLOG] 3 ML PEN SC SCH ×2 (18:00)
[2017-04-03] MEDS: FENTAnyl 50 MCG/ML VIAL IV PRN ×4 (18:06→19:01)
[2017-04-03] MEDS ORDERED: HYDROmorphONE 0.2 MG/ML PCA ONE (18:10)
[2017-04-03] MEDS: HYDROmorphONE 0.2 MG/ML PCA IV SCH (18:16)
[2017-04-03] MEDS: ATORVASTATIN 10 MG TAB PO SCH (21:00)
[2017-04-03] MEDS: MAGNESIUM OXIDE 400 MG TAB PO SCH (21:00)
[2017-04-03] MEDS: FAMOTIDINE 20 MG TAB PO SCH (21:00)
[2017-04-03] MEDS: DULOXETINE 30 MG CAP DR PO SCH (21:00)
[2017-04-03] MEDS: LACTATED RINGER'S 1,000 ML IV SCH (21:11)
[2017-04-03 21:16] LABS: ABNORMAL IP MESSAGE 1; HEMATOCRIT 32.7 % (37.0-47.0); HEMOGLOBIN 10.4 g/dl (12.0-16.0); MEAN CORPUSCULAR HEMOGLOBIN 29.5 pg (29.0-33.0); MEAN CORPUSCULAR HGB CONC 31.8 g/dl (32.0-37.0); MEAN CORPUSCULAR VOLUME 92.9 fl (82.0-101.0); MEAN PLATELET VOLUME 8.4 fl (7.4-10.4); PLATELET COUNT 312 10^3/UL (140-415); RED BLOOD COUNT 3.52 10^6/ul (4.20-5.40); RED CELL DISTRIBUTION WIDTH 14.7 % (11.5-14.5); WHITE BLOOD COUNT 9.4 10^3/ul (4.8-10.8)
[2017-04-03 21:17] LABS: POSITIVE DIFF @See below
[2017-04-03] MEDS: ACETAMINOPHEN 1000MG/100ML IV 100 ML IVPB SCH (21:22)
[2017-04-03 21:33] LABS: CALCIUM 8.1 mg/dl (8.4-10.2); CREATININE 0.4 mg/dl (0.44-1.00); POTASSIUM 3.3 mmol/L (3.5-5.1)
[2017-04-03] MEDS: metroNIDAZOLE 500 MG/NS (PMX) 100 ML IVPB SCH (21:37)
[2017-04-03 21:53] LABS: MONOCYTES % (M) 8 % (0-11); PLATELET ESTIMATE NORMAL
[2017-04-03] MEDS: CEFAZOLIN 2 GM/50 ML (PMX) 50 ML IVPB SCH (22:43)
[2017-04-04] MEDS ORDERED: POTASSIUM CHLORIDE 250 ML IVPB ONE
[2017-04-04 00:15] VITALS: BP 109/53; RESP 19
[2017-04-04] MEDS ORDERED: INSULIN ASPART [NOVOLOG] 3 ML PEN SC SCH (01:00)
[2017-04-04] MEDS: Insulin NOVOLOG SS MILD Algorithm (NPO/TPN/ENTERAL FEEDS) SC SCH ×6 (01:23→21:00)
[2017-04-04] MEDS: ACCU-CHEK XX SCH (01:39)
[2017-04-04 02:00] VITALS: BP 127/59; RESP 18
[2017-04-04] MEDS ORDERED: ACCU-CHEK XX SCH ×3 (02:00)
[2017-04-04] MEDS: ALBUTEROL/IPRATROPIUM (NEB) 3 ML AMP HHN SCH ×5 (02:41→20:08)
[2017-04-04] MEDS: ACETAMINOPHEN 1000MG/100ML IV 100 ML IVPB SCH ×3 (02:51→15:49)
[2017-04-04] MEDS: LACTATED RINGER'S 1,000 ML IV SCH ×3 (03:21→23:14)
--- NOTE | 2017-04-04 03:22 | OPR ---
DATE OF OPERATION: 04/03/2017 PREOPERATIVE DIAGNOSIS: Patient was planned to have surgery for: 1. Colon. 2. Colovaginal fistula. 3. Sigmoid resection. 4. Takedown of loop colostomy. 5. Possible creation of end colostomy. 6. Possible diverting ileostomy. 7. Possible anastomosis. I was asked by her general surgeon, Dr. Cherry to do a cystoscopy and post ureteral catheter so a ureteral injury could be avoided. OPERATION PERFORMED: Cystoscopy and insertion of bilateral ureteral catheters. TECHNIQUE: The patient was brought to the operating room. General anesthesia was induced. The patient was positioned in the lithotomy position. Genital area was prepped and draped in the usual sterile manner. A number 21-Israeli cystoscope sheath was then introduced into the bladder. Urine was collected for culture and sensitivity. The left ureteral orifice was identified. Then, a 5-Israeli open-ended ureteral catheter was passed all the way up and then the scope was removed and reintroduced a 2nd time and the ureteral catheter was labeled. There was a sticker saying it is left ureter. Then the right ureteral orifice was identified and another urethral catheter 5- Israeli was passed up to the kidney and then the cystoscope was removed. A 16-Israeli Bird catheter was inserted and the 2 ureteral catheters were taped to the Bird catheter and they were both labeled as right and left and they were both connected to gravity as drainage into back. Then the patient was reprepped for the surgical procedure by Dr. Cherry and Dr. Barros. Dictated By: Jimbo Pierce MD /anderson/gisell /Document#: [id number]
--- NOTE | 2017-04-04 04:30 | OPR ---
DATE OF OPERATION: 04/03/2017 PREOPERATIVE DIAGNOSIS: POSTOPERATIVE DIAGNOSIS: OPERATION: 1. Open sigmoid resection. 2. Proctosigmoidoscopy. SURGEON: Jason Cherry MD BASEBALL GLOVE STUFFER: Andrez Barros MD ANESTHESIOLOGIST: Esau CALDERON ANESTHESIA: General endotracheal tube anesthesia. POSITION: Lithotomy. ESTIMATED BLOOD LOSS: 75 mL. Urine Output: 120 mL. INDICATIONS: This is a 62-year-old woman with a prior history of diverticulitis. She previously had a loop colostomy performed for pelvic inflammatory mass. She was also seen by the general surgeon here who did an exploratory laparotomy, but could not proceed with the resection. The patient saw me in the office afterwards for a second opinion. I reviewed the patient's operative notes and radiology. Because of the inflammatory nature of this diverticulitis and that the last surgeon was unable to operate, I asked Dr. Jimbo Pierce to place stents, to which he agreed. The patient was cleared by a shop coordinator and her primary care physician. I discussed the risks and benefits of an open sigmoid resection, possible takedown of loop colostomy, possible creation of end colostomy or ileostomy. I warned the patient of the risks including bleeding, infection, damage to surrounding structures, leak, infection, and need for future operations. The patient agreed and went to the OR. DESCRIPTION OF PROCEDURE: After obtaining consent, the patient was brought to the operating room. After induction of general anesthesia, the patient was gently placed in the lithotomy position. The pressures points were carefully padded. Care was taken not to manipulate her right shoulder. Dr. Jimbo Pierce did a cystoscopy and placed ureteral stents, which will be written about under separate cover. After Dr. Pierce was finished, the patient was prepped and draped in the usual sterile fashion. We began by cutting over her old midline infraumbilical incision. This was deepened with electrocautery until the fascia was identified and divided. We took down some mild adhesions from the omentum and were able to visualize the abdomen. A wound protector was placed. We did identify a phlegmonous area of the sigmoid colon, which was adherent to the left lateral sidewall. I was able to palpate the left ureter, which was very far from this area. Using electrocautery, finger fracture, and Metzenbaum scissors, we freed up the pathologic portion of the sigmoid from the sidewall. We were able to also mobilize it in the pelvis until it was freed up. Care was taken to not damage the bladder, the ureters or any other structures. We found a healthy portion of the proximal rectum and divided it using a curvilinear stapler. We then used a 10 LigaSure to divide the mesentery until we found some healthy proximal sigmoid colon. Once removed, this was sent off and the pathologist entered the room. The pathologist examined and found no signs of carcinoma. He believes it was diverticulitis. We then irrigated out the pelvis. There was a small area of phlegmon, but no gross large abscess. We decided we had enough life in the proximal sigmoid to do an anastomosis. Using a automated purse-string device, we placed a purse-string in the proximal end. This was buttressed by an additional Prolene purstring suture. Dr. Andrez Barros then went below and placed the stapler into the patient's rectum. It came out to the end of the stump of the rectum. We easily passed the spike through anterior to the staple line. I was easily able to connect the anvil to it and brought the 2 ends together, without tension. We fired the EEA. Dr. Barros took the EEA out of the anus and rectum and was able to find 2 healthy donuts. I then placed warm sterile water into the patient's pelvis. Dr. Barros using a rigid sigmoidoscope examined the rectum and with pumps of air, and there were no bubbles seen in the abdomen while I compressed the sigmoid colon proximal to the anastomosis. Dr. Barros got to about 13 cm, but could not see the anastomosis, but he did not see any bleeding or any other pathology. He then removed the scope and scrubbed back in. We re-examined the pelvis and copiously irrigated with sterile saline. There was very limited spillage of stool during the case. A portion of small bowel that was adherent to the phlegmon was examined, but was found to be intact. Two silk sutures were placed over a serosal tear. Once this was completed, we brought the small bowel back into the pelvis and covered it with the omentum. We then began our closure. We closed the fascia with a running 0-PDS double-stranded suture. We then irrigated out the wound and closed the skin with fernando. Some Marcaine was injected subcutaneously afterwards. The patient tolerated the procedure well. The patient was extubated in the OR and transported to the PACU in good condition. I will speak to family about findings. I will have the hospitalist consulted for medical issues. I decided not to take down her loop colostomy because there were some signs of phlegmon in the mesentery and I wanted to protect the anastomosis. My plan will be once she is recovered, do a gastrografin enema in approximately 6-8 weeks from now. If there appears to be no leak, I would then take down the loop colostomy at another time. Dictated By: Jason Cherry MD /anderson/herbert /Document#: [id number] ERICA
[2017-04-04] MEDS: metroNIDAZOLE 500 MG/NS (PMX) 100 ML IVPB SCH ×3 (04:58→18:02)
[2017-04-04 05:14] LABS: BASOPHILS % 0.1 % (0.0-2.0); HEMATOCRIT 29.1 % (37.0-47.0); HEMOGLOBIN 9.3 g/dl (12.0-16.0); LYMPHOCYTES # 0.7 10^3/ul (0.8-2.9); LYMPHOCYTES % 5.9 % (15.0-51.0); MEAN CORPUSCULAR HEMOGLOBIN 29.5 pg (29.0-33.0); MEAN CORPUSCULAR VOLUME 92.4 fl (82.0-101.0); MEAN PLATELET VOLUME 8.5 fl (7.4-10.4); MONOCYTE # 0.6 10^3/ul (0.3-0.9); MONOCYTES % 4.5 % (0.0-11.0); NEUTROPHIL # 10.8 10^3/ul (1.6-7.5); NEUTROPHILS % 89.2 % (39.0-77.0); PLATELET COUNT 313 10^3/UL (140-415); RED BLOOD COUNT 3.15 10^6/ul (4.20-5.40); RED CELL DISTRIBUTION WIDTH 14.8 % (11.5-14.5); WHITE BLOOD COUNT 12.2 10^3/ul (4.8-10.8)
[2017-04-04 05:29] LABS: ALBUMIN 2.5 g/dl (3.3-4.9); ALBUMIN/GLOBULIN RATIO 0.86; BILIRUBIN,INDIRECT 0.1 mg/dl (0-1.1); BILIRUBIN,TOTAL 0.1 mg/dl (0.2-1.3); CHOL/HDL RATIO 3.2 RATIO; CREATININE 0.42 mg/dl (0.44-1.00); MAGNESIUM 1.4 mg/dl (1.7-2.5); PHOSPHORUS 3.2 mg/dl (2.5-4.9); POTASSIUM 3.9 mmol/L (3.5-5.1); TOTAL PROTEIN 5.4 g/dl (6.1-8.1)
[2017-04-04 05:58] LABS: THYROID STIMULATING HORMONE 0.426 MIU/L (0.465-4.680)
[2017-04-04] MEDS: HYDROmorphONE 0.2 MG/ML PCA IV SCH ×2 (06:13→15:52)
[2017-04-04] MEDS: CEFAZOLIN 2 GM/50 ML (PMX) 50 ML IVPB SCH ×3 (06:18→22:05)
[2017-04-04] MEDS ORDERED: LEVOTHYROXINE 150 MCG TAB PO SCH (07:00)
[2017-04-04] MEDS: GABAPENTIN 100 MG CAP PO SCH (07:50)
[2017-04-04] MEDS: INSULIN ASPART [NOVOLOG] 3 ML PEN SC SCH ×3 (07:50→17:55)
[2017-04-04 08:00] VITALS: BP 98/53; RESP 17
[2017-04-04] MEDS: ATENOLOL 25 MG TAB PO SCH (08:39)
[2017-04-04] MEDS: MAGNESIUM OXIDE 400 MG TAB PO SCH ×2 (08:52→22:04)
[2017-04-04] MEDS: FAMOTIDINE 20 MG TAB PO SCH ×2 (08:52→22:04)
[2017-04-04] MEDS: DULOXETINE 30 MG CAP DR PO SCH ×2 (08:55→22:04)
[2017-04-04] MEDS: predniSONE 5 MG TAB PO SCH (08:55)
[2017-04-04] MEDS: PAROXETINE 20 MG TAB PO SCH (08:55)
[2017-04-04] MEDS ORDERED: FERROUS SULFATE (EC) 325 MG TAB PO SCH (09:00)
[2017-04-04] MEDS: INSULIN GLARGINE [LANtus] 3 ML PEN SC SCH (09:12)
--- NOTE | 2017-04-04 09:19 | PN ---
Date/Time of Note Date/Time of Note DATE: 04/04/17 TIME: 09:14 Assessment/Plan VTE Prophylaxis VTE Prophylaxis Intervention: ambulation, LMWH, SCD's Lines/Catheters IV Catheter Type (from Nrsg): Peripheral IV Urinary Cath still in place: Yes Reason Cath still needed: other (indicate) (Still not ambulatory, will consider once OOB) Assessment/Plan Chief Complaint/Hosp Course 62YO Woman h/o diverticulitis, s/p diverting loop colostomy, now s/p open sigmoid resection POD1. Doing OK. Pt denies CP/SOB/F/C/NV. Having some abdominal pain and chronic pain. On exam, VS OK, appears well, abdomen soft, appropriately TTP. Stoma is functional. Plan is clear liquid diet, advance per nursing, IVF to 75/hr, wean per nursing. OOB - PT in room now. Continue pain meds. Continue abx as pt had some phlegmon in pelvis. Home meds/DM meds per medicine. If PT OOB reasonably, willl remove jacobs. Appreciate medicine following. Problems: Subjective 24 Hr Interval Summary Free Text/Dictation Pt states she's OK. C/O pain in lower abdomen. Pain medicine helpful. Denies CP/SOB/F/C/NVD. Wants to eat. Constitutional: no complaints Respiratory: no complaints Cardiovascular: no complaints Gastrointestinal: pain Exam/Review of Systems Vital Signs Vitals Vital Signs Date Time Temp Pulse Resp B/P Pulse Ox O2 Delivery O2 Flow Rate FiO2 04/04/17 08:41 94 18 98 Nasal Cannula 3.0 04/04/17 08:00 99.3 98/53 Intake and Output 04/03/17 04/03/17 04/04/17 15:00 23:00 07:00 Intake Total 1300 ml 1150 ml Output Total 470 ml 400 ml Balance 830 ml 750 ml Exam Constitutional: alert Respiratory: clear to auscultation Cardiovascular: regular rate and rhythm Gastrointestinal: soft (Appropriately TTP at wound. Wound C/I, scant serosanguinous fluid. Stoma pink with stool and gas in bag) Extremities: other (-C/C/E, SCDs in place) Results Result Diagram: 04/04/17 0441 04/04/171 Results 24 hrs Laboratory Tests Test 04/03/17 11:42 04/03/17 18:48 04/03/17 21:00 04/03/17 21:25 Bedside Glucose 182 272 H 297 H White Blood Count 9.4 Red Blood Count 3.52 L Hemoglobin 10.4 L Hematocrit 32.7 L Mean Corpuscular Volume 92.9 Mean Corpuscular Hemoglobin 29.5 Mean Corpuscular Hemoglobin Concent 31.8 L Red Cell Distribution Width 14.7 H Platelet Count 312 Mean Platelet Volume 8.4 Neutrophils % Segmented Neutrophils % (Manual) 78 H Band Neutrophils % (Manual) 13 H Lymphocytes % Lymphocytes % (Manual) 1 L Monocytes % Monocytes % (Manual) 8 Eosinophils % Basophils % Nucleated Red Blood Cells % 0.0 Neutrophils # Neutrophils # (Manual) 7.4 Band Neutrophils # 1.2 H Absolute Lymphocytes (Manual) 0.0 L Lymphocytes # Monocytes # Absolute Monocytes (Manual) 0.7 Eosinophils # Basophils # Nucleated Red Blood Cells # Platelet Estimate NORMAL Sodium Level 135 Potassium Level 3.3 L Chloride Level 105 Carbon Dioxide Level 26 Anion Gap 7 L Blood Urea Nitrogen 14 Creatinine 0.40 L Glucose Level 299 H Calcium Level 8.1 L Test 04/04/17 01:16 04/04/17 04:41 04/04/17 04:54 04/04/17 08:54 Bedside Glucose 315 H 203 197 White Blood Count 12.2 #H Red Blood Count 3.15 L Hemoglobin 9.3 L Hematocrit 29.1 L Mean Corpuscular Volume 92.4 Mean Corpuscular Hemoglobin 29.5 Mean Corpuscular Hemoglobin Concent 32.0 Red Cell Distribution Width 14.8 H Platelet Count 313 Mean Platelet Volume 8.5 Neutrophils % 89.2 H Lymphocytes % 5.9 L Monocytes % 4.5 Eosinophils % 0.0 Basophils % 0.1 Nucleated Red Blood Cells % 0.0 Neutrophils # 10.8 H Lymphocytes # 0.7 L Monocytes # 0.6 Eosinophils # 0.0 Basophils # 0.0 Nucleated Red Blood Cells # 0.0 Sodium Level 139 Potassium Level 3.9 Chloride Level 109 Carbon Dioxide Level 28 Anion Gap 6 L Blood Urea Nitrogen 12 Creatinine 0.42 L Glucose Level 183 # Hemoglobin A1c 10.3 H Calcium Level 8.0 L Phosphorus Level 3.2 Magnesium Level 1.4 L Total Bilirubin 0.1 L Direct Bilirubin 0.00 Indirect Bilirubin 0.1 Aspartate Amino Transf (AST/SGOT) 18 Alanine Aminotransferase (ALT/SGPT) 32 Alkaline Phosphatase 157 H Total Protein 5.4 L Albumin 2.5 L Globulin 2.90 Albumin/Globulin Ratio 0.86 Triglycerides Level 78 Cholesterol Level 123 LDL Cholesterol, Calculated 69 HDL Cholesterol 38 Cholesterol/HDL Ratio 3.2 Thyroid Stimulating Hormone (TSH) 0.426 L Medications Medications Current Medications Atenolol (Tenormin) 25 mg DAILY PO ; Start 04/04/17 at 09:00 Cyclobenzaprine HCl (Flexeril) 5 mg Q6H PRN PO PAIN; Start 04/03/17 at 15:30 Duloxetine HCl (Cymbalta) 60 mg BID PO ; Start 04/03/17 at 21:00 Ergocalciferol (Drisdol) 50,000 unit QMONDAY PO ; Start 04/03/17 at 17:00 Insulin Glargine (Lantus) 40 unit QAM SC Last administered on 04/04/17t 09:12; Admin Dose 40 UNIT; Start 04/04/17 at 09:00 Magnesium Oxide (Mag-Ox 400) 400 mg BID PO ; Start 04/03/17 at 21:00 Paroxetine HCl (Paxil) 40 mg DAILY PO ; Start 04/04/17 at 09:00 Calcium Carbonate (Tums) 1,000 mg Q4H PRN PO UPSET STOMACH; Start 04/03/17 at 17:30 Atorvastatin Calcium (Lipitor) 10 mg DAILY@21 PO ; Start 04/03/17 at 21:00 Acetaminophen (Tylenol Tab) 650 mg Q6H PRN PO PAIN LEVEL 1-3 OR FEVER; Start 04/03/17 at 15:30 Famotidine (Pepcid) 20 mg Q12 PO ; Start 04/03/17 at 21:00 Hydralazine HCl (Apresoline) 10 mg Q6H PRN IV SBP>160; Start 04/03/17 at 16:00 Miscellaneous Information 1 ea NOTE XX ; Start 04/03/17 at 16:00 Glucose (Glutose) 15 gm Q15M PRN PO DECREASED GLUCOSE; Start 04/03/17 at 16:00 Glucose (Glutose) 22.5 gm Q15M PRN PO DECREASED GLUCOSE; Start 04/03/17 at 16: 00 Dextrose (D50w Syringe) 25 ml Q15M PRN IV DECREASED GLUCOSE; Start 04/03/17 at 16:00 Dextrose (D50w Syringe) 50 ml Q15M PRN IV DECREASED GLUCOSE; Start 04/03/17 at 16:00 Glucagon (Glucagen) 1 mg Q15M PRN IM DECREASED GLUCOSE; Start 04/03/17 at 16:00 Glucose 15 gm 15 gm Q15M PRN BUCCAL DECREASED GLUCOSE; Start 04/03/17 at 16:00 Metronidazole (Flagyl 500 Mg (Pmx)) 100 ml @ 100 mls/hr Q8H IVPB Last administered on 04/04/17 04:58; Admin Dose 100 MLS/HR; Start 04/03/17 at 17:30 ; Stop 04/04/17 at 17:29 Ketorolac Tromethamine (Toradol) 15 mg Q6H PRN IV PAIN; Start 04/03/17 at 17:30 ; Stop 04/06/17 at 17:29 Ondansetron HCl 4 mg 4 mg Q6H PRN IV NAUSEA AND/OR VOMITING; Start 04/03/17 at 17:30 Lactated Ringer's (Lr) 1,000 ml @ 100 mls/hr Q10H IV Last administered on 04/03 21:11; Admin Dose 100 MLS/HR; Start 04/03/17 at 17:21 Phenol (Cepastat Lozenge) 1 lozenge PRN PRN MT SORE THROAT; Start 04/03/17 at 17:30 Naloxone HCl (Narcan) 0.2 mg Q2M PRN IV RR 8 BREATHS/MIN OR LESS; Start at 17:30 Hydromorphone HCl (Dilaudid DEPARTMENT SALES MANAGER) Q4PCA IV Last administered on 04/04/17 06:13 ; Admin Dose 6 MG; Start 04/03/17 at 17:30 Diagnostic Test (Pha) (Accu-Chek) 1 ea 02 XX Last administered on 04/04/17 01: 39; Admin Dose 1 EA; Start 04/04/17 at 02:00 Prednisone 5 mg 5 mg DAILY PO ; Start 04/04/17 at 09:00 Acetaminophen 100 ml @ 400 mls/hr Q6H IVPB Last administered on 04/04/17 08: 56; Admin Dose 400 MLS/HR; Start 04/03/17 at 20:00; Stop 04/04/17 at 14:14 Cefazolin Sodium/ Dextrose (Ancef 2 Gm/50 ml (Pmx)) 50 ml @ 100 mls/hr Q8 IVPB Last administered on 04/04/17 06:18; Admin Dose 100 MLS/HR; Start 04/03/17 at 22:00; Stop 04/04/17 at 14:29 Insulin Aspart (Novolog Insulin Pen) (Adult SC Insulin - Mild Algorithm)... Q4 SC Last administered on 04/04/17 09:11; Admin Dose 2 UNIT; Start 04/04/17 at 01:00 MOY BACON M.D. Apr 04, 2017 09:19
--- NOTE | 2017-04-04 11:12 | CONS ---
Date/Time of Note Date/Time of Note DATE: 04/04/17 TIME: 11:12 Assessment/Plan Assessment/Plan Chief Complaint/Hosp Course 62-year-old female who was brought by her surgeon for elective sigmoid resection with possible takedown of colostomy, cystoscopy with ureteral stent/ catheter placement. 1.History of diverticular abscess/diverticulitis and rectovaginal fistula. -Status post Open sigmoidectomy WITH Cystoscopy and insertion of bilateral ureteral catheters. -F/u surgery recs postoperatively 2. Essential hypertension. Stable. -Continue home medications 3. DMII -Accu-Cheks/ISS/up pre-meal aspart to 10 units 3 times daily. Continue Lantus 40 units 4. Hypercholesterolemia. -Continue statin 5. Arthritis. -Continue home medications. 6. Hypothyroidism. -Patient with low TSH. Add T4 and adjust Synthroid dose accordingly. -Needs outpatient repeat labs in 6 weeks 7.History of exploratory laparotomy, I and D of pelvic abscess and diverting colostomy. 8. Tobacco use. -Cessation advised. DVT prophylaxis: Per surgery PUD prophylaxis: Pepcid. Plan: Continue post op management. Patient was seen in collaboration with Dr. Zhou. Problems: Consultation Date/Type/Reason Admit Date/Time Apr 03, 2017 at 10:32 Initial Consult Date 04/03/17 Type of Consultation: Internal medicine Reason for Consultation POD#1. 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 Exam/Review of Systems Vital Signs Vitals Vital Signs Date Time Temp Pulse Resp B/P Pulse Ox O2 Delivery O2 Flow Rate FiO2 04/04/17 09:47 Nasal Cannula 2.0 04/04/17 08:41 94 18 98 04/04/17 08:00 99.3 98/53 Intake and Output 04/03/17 04/03/17 04/04/17 14:59 22:59 06:59 Intake Total 1300 ml 1150 ml Output Total 470 ml 400 ml Balance 830 ml 750 ml Exam General: Well developed,adequately built, not in any acute distress . HEENT: Normocephalic, Atraumatic, No laceration or hematoma; Eyes: PEERL, Conjunctiva clear, Anicteric sclera Neck: Supple without any lymphadenopathy, nontender, no JVD, no carotid bruits, trachea midline, no thyromegaly Cardiac: S1, S2 auscultated, regular rhythm and rate, no mumurs or gallop Pulmonary: Normal respiratory effort. Chest clear to auscultation bilaterally, no adventitious breath sounds GI: Left upper quadrant colostomy bag draining stool. Stoma intact. Otherwise , abdomen normal to inspection. Soft, non tender, non- distended, no masses, no rebound tenderness or guarding. Bowel sounds active on all four quadrants Genitourinary: Deferred Extremities: No cyanosis, clubbing, or edema. Pulses [2+] bilaterally. Full ROM on all four extremities. No focal weakness appreciated. Neurologic: Alert to person, place, time, and situation. Affect appropriate, intact sensation. Skin: Clean,dry, and intact. No ecchymosis, no rashes, or lesions Results Result Diagram: 04/04/17 0441 04/04/17 0441 Results 24 hrs Laboratory Tests Test 04/03/17 11:42 04/03/17 18:48 04/03/17 21:00 04/03/17 21:25 Bedside Glucose 182 272 H 297 H White Blood Count 9.4 Red Blood Count 3.52 L Hemoglobin 10.4 L Hematocrit 32.7 L Mean Corpuscular Volume 92.9 Mean Corpuscular Hemoglobin 29.5 Mean Corpuscular Hemoglobin Concent 31.8 L Red Cell Distribution Width 14.7 H Platelet Count 312 Mean Platelet Volume 8.4 Neutrophils % Segmented Neutrophils % (Manual) 78 H Band Neutrophils % (Manual) 13 H Lymphocytes % Lymphocytes % (Manual) 1 L Monocytes % Monocytes % (Manual) 8 Eosinophils % Basophils % Nucleated Red Blood Cells % 0.0 Neutrophils # Neutrophils # (Manual) 7.4 Band Neutrophils # 1.2 H Absolute Lymphocytes (Manual) 0.0 L Lymphocytes # Monocytes # Absolute Monocytes (Manual) 0.7 Eosinophils # Basophils # Nucleated Red Blood Cells # Platelet Estimate NORMAL Sodium Level 135 Potassium Level 3.3 L Chloride Level 105 Carbon Dioxide Level 26 Anion Gap 7 L Blood Urea Nitrogen 14 Creatinine 0.40 L Glucose Level 299 H Calcium Level 8.1 L Test 04/04/17 01:16 04/04/17 04:41 04/04/17 04:54 04/04/17 08:54 Bedside Glucose 315 H 203 197 White Blood Count 12.2 #H Red Blood Count 3.15 L Hemoglobin 9.3 L Hematocrit 29.1 L Mean Corpuscular Volume 92.4 Mean Corpuscular Hemoglobin 29.5 Mean Corpuscular Hemoglobin Concent 32.0 Red Cell Distribution Width 14.8 H Platelet Count 313 Mean Platelet Volume 8.5 Neutrophils % 89.2 H Lymphocytes % 5.9 L Monocytes % 4.5 Eosinophils % 0.0 Basophils % 0.1 Nucleated Red Blood Cells % 0.0 Neutrophils # 10.8 H Lymphocytes # 0.7 L Monocytes # 0.6 Eosinophils # 0.0 Basophils # 0.0 Nucleated Red Blood Cells # 0.0 Sodium Level 139 Potassium Level 3.9 Chloride Level 109 Carbon Dioxide Level 28 Anion Gap 6 L Blood Urea Nitrogen 12 Creatinine 0.42 L Glucose Level 183 # Hemoglobin A1c 10.3 H Calcium Level 8.0 L Phosphorus Level 3.2 Magnesium Level 1.4 L Total Bilirubin 0.1 L Direct Bilirubin 0.00 Indirect Bilirubin 0.1 Aspartate Amino Transf (AST/SGOT) 18 Alanine Aminotransferase (ALT/SGPT) 32 Alkaline Phosphatase 157 H Total Protein 5.4 L Albumin 2.5 L Globulin 2.90 Albumin/Globulin Ratio 0.86 Triglycerides Level 78 Cholesterol Level 123 LDL Cholesterol, Calculated 69 HDL Cholesterol 38 Cholesterol/HDL Ratio 3.2 Thyroid Stimulating Hormone (TSH) 0.426 L Medications Medications Current Medications Atenolol (Tenormin) 25 mg DAILY PO ; Start 04/04/17 at 09:00 Cyclobenzaprine HCl (Flexeril) 5 mg Q6H PRN PO PAIN; Start 04/03/17 at 15:30 Duloxetine HCl (Cymbalta) 60 mg BID PO ; Start 04/03/17 at 21:00 Ergocalciferol (Drisdol) 50,000 unit QMONDAY PO ; Start 04/03/17 at 17:00 Insulin Glargine (Lantus) 40 unit QAM SC Last administered on 04/04/17t 09:12; Admin Dose 40 UNIT; Start 04/04/17 at 09:00 Magnesium Oxide (Mag-Ox 400) 400 mg BID PO ; Start 04/03/17 at 21:00 Paroxetine HCl (Paxil) 40 mg DAILY PO ; Start 04/04/17 at 09:00 Calcium Carbonate (Tums) 1,000 mg Q4H PRN PO UPSET STOMACH; Start 04/03/17 at 17:30 Atorvastatin Calcium (Lipitor) 10 mg DAILY@21 PO ; Start 04/03/17 at 21:00 Famotidine (Pepcid) 20 mg Q12 PO ; Start 04/03/17 at 21:00 Hydralazine HCl (Apresoline) 10 mg Q6H PRN IV SBP>160; Start 04/03/17 at 16:00 Miscellaneous Information 1 ea NOTE XX ; Start 04/03/17 at 16:00 Glucose (Glutose) 15 gm Q15M PRN PO DECREASED GLUCOSE; Start 04/03/17 at 16:00 Glucose (Glutose) 22.5 gm Q15M PRN PO DECREASED GLUCOSE; Start 04/03/17 at 16: 00 Dextrose (D50w Syringe) 25 ml Q15M PRN IV DECREASED GLUCOSE; Start 04/03/17 at 16:00 Dextrose (D50w Syringe) 50 ml Q15M PRN IV DECREASED GLUCOSE; Start 04/03/17 at 16:00 Glucagon (Glucagen) 1 mg Q15M PRN IM DECREASED GLUCOSE; Start 04/03/17 at 16:00 Glucose 15 gm 15 gm Q15M PRN BUCCAL DECREASED GLUCOSE; Start 04/03/17 at 16:00 Metronidazole (Flagyl 500 Mg (Pmx)) 100 ml @ 100 mls/hr Q8H IVPB Last administered on 04/04/17 10:40; Admin Dose 100 MLS/HR; Start 04/03/17 at 17:30 ; Stop 04/05/17 at 17:29 Ketorolac Tromethamine (Toradol) 15 mg Q6H PRN IV PAIN; Start 04/03/17 at 17:30 ; Stop 04/06/17 at 17:29 Ondansetron HCl 4 mg 4 mg Q6H PRN IV NAUSEA AND/OR VOMITING; Start 04/03/17 at 17:30 Lactated Ringer's (Lr) 1,000 ml @ 75 mls/hr [id number] IV Last administered on 21:11; Admin Dose 100 MLS/HR; Start 04/03/17 at 17:21 Phenol (Cepastat Lozenge) 1 lozenge PRN PRN MT SORE THROAT; Start 04/03/17 at 17:30 Naloxone HCl (Narcan) 0.2 mg Q2M PRN IV RR 8 BREATHS/MIN OR LESS; Start at 17:30 Hydromorphone HCl (Dilaudid SOCIAL WORKER [employer]ICAL) Q4PCA IV Last administered on 04/04/17 06:13 ; Admin Dose 6 MG; Start 04/03/17 at 17:30 Diagnostic Test (Pha) (Accu-Chek) 1 ea 02 XX Last administered on 04/04/17 01: 39; Admin Dose 1 EA; Start 04/04/17 at 02:00 Prednisone 5 mg 5 mg DAILY PO ; Start 04/04/17 at 09:00 Acetaminophen 100 ml @ 400 mls/hr Q6H IVPB Last administered on 04/04/17 08: 56; Admin Dose 400 MLS/HR; Start 04/03/17 at 20:00; Stop 04/04/17 at 14:14 Cefazolin Sodium/ Dextrose (Ancef 2 Gm/50 ml (Pmx)) 50 ml @ 100 mls/hr Q8 IVPB Last administered on 04/04/17 06:18; Admin Dose 100 MLS/HR; Start 04/03/17 at 22:00; Stop 04/05/17 at 21:59 Insulin Aspart (Novolog Insulin Pen) (Adult SC Insulin - Mild Algorithm)... Q4 SC Last administered on 04/04/17 09:11; Admin Dose 2 UNIT; Start 04/04/17 at 01:00 Enoxaparin Sodium (Lovenox) 30 mg DAILY SC ; Start 04/05/17 at 09:00 MANE MATA NP Apr 04, 2017 11:12
[2017-04-04 12:24] LABS: FREE T3 2.12 pg/ml (2.77-5.27)
[2017-04-04 12:38] LABS: TRIIODOTHYRONINE 0.47 ng/ml (0.97-1.69)
[2017-04-04 15:36] VITALS: BP 113/57; RESP 18
[2017-04-04 20:00] VITALS: BP 134/63; RESP 20
[2017-04-04] MEDS: ATORVASTATIN 10 MG TAB PO SCH (22:04)
[2017-04-05] MEDS: Insulin NOVOLOG SS MILD Algorithm (NPO/TPN/ENTERAL FEEDS) SC SCH ×2 (01:00→04:57)
[2017-04-05] MEDS: ACCU-CHEK XX SCH (01:08)
[2017-04-05] MEDS: ALBUTEROL/IPRATROPIUM (NEB) 3 ML AMP HHN SCH ×4 (02:03→20:09)
[2017-04-05] MEDS: metroNIDAZOLE 500 MG/NS (PMX) 100 ML IVPB SCH ×2 (02:08→09:35)
[2017-04-05] MEDS: HYDROmorphONE 0.2 MG/ML PCA IV SCH (02:13)
[2017-04-05 02:21] VITALS: BP 131/61; RESP 20
[2017-04-05 05:50] LABS: BASOPHILS % 0.3 % (0.0-2.0); EOSINOPHILS # 0.1 10^3/ul (0.0-0.5); EOSINOPHILS % 0.4 % (0.0-7.0); HEMOGLOBIN 8.4 g/dl (12.0-16.0); LYMPHOCYTES # 1.2 10^3/ul (0.8-2.9); LYMPHOCYTES % 10.6 % (15.0-51.0); MEAN CORPUSCULAR HEMOGLOBIN 28.3 pg (29.0-33.0); MEAN CORPUSCULAR VOLUME 94.3 fl (82.0-101.0); MEAN PLATELET VOLUME 8.6 fl (7.4-10.4); MONOCYTE # 0.5 10^3/ul (0.3-0.9); MONOCYTES % 4.1 % (0.0-11.0); NEUTROPHIL # 9.7 10^3/ul (1.6-7.5); NEUTROPHILS % 84.1 % (39.0-77.0); PLATELET COUNT 287 10^3/UL (140-415); RED BLOOD COUNT 2.97 10^6/ul (4.20-5.40); RED CELL DISTRIBUTION WIDTH 15.2 % (11.5-14.5); WHITE BLOOD COUNT 11.5 10^3/ul (4.8-10.8)
[2017-04-05 06:10] LABS: CALCIUM 8.4 mg/dl (8.4-10.2); CREATININE 0.35 mg/dl (0.44-1.00); MAGNESIUM 1.6 mg/dl (1.7-2.5); POTASSIUM 3.1 mmol/L (3.5-5.1)
[2017-04-05] MEDS: LEVOTHYROXINE 100 MCG TAB PO SCH (06:12)
[2017-04-05] MEDS: CEFAZOLIN 2 GM/50 ML (PMX) 50 ML IVPB SCH ×2 (06:13→14:26)
[2017-04-05 08:20] VITALS: BP 128/58; RESP 18
[2017-04-05] MEDS: GABAPENTIN 100 MG CAP PO SCH (08:23)
[2017-04-05] MEDS: FAMOTIDINE 20 MG TAB PO SCH ×2 (08:24→20:57)
[2017-04-05] MEDS: ATENOLOL 25 MG TAB PO SCH (08:24)
[2017-04-05] MEDS: PAROXETINE 20 MG TAB PO SCH (08:25)
[2017-04-05] MEDS: MAGNESIUM OXIDE 400 MG TAB PO SCH ×2 (08:25→20:57)
[2017-04-05] MEDS: DULOXETINE 30 MG CAP DR PO SCH ×2 (08:26→20:56)
[2017-04-05] MEDS: predniSONE 5 MG TAB PO SCH (08:26)
[2017-04-05] MEDS: INSULIN ASPART [NOVOLOG] 3 ML PEN SC SCH ×6 (08:40→21:00)
[2017-04-05] MEDS: ENOXAPARIN 30 MG/0.3 ML SYG SC SCH (08:46)
[2017-04-05] MEDS ORDERED: SOD CHLORIDE 0.9% 1,000 ML IV SCH (09:00)
--- NOTE | 2017-04-05 09:18 | PN ---
Date/Time of Note Date/Time of Note DATE: 04/05/17 TIME: 09:14 Assessment/Plan VTE Prophylaxis VTE Prophylaxis Intervention: ambulation, LMWH, SCD's Lines/Catheters IV Catheter Type (from Nrsg): Peripheral IV Urinary Cath still in place: Yes Reason Cath still needed: other (indicate) (to be removed this AM) Assessment/Plan Chief Complaint/Hosp Course [id number] Woman h/o diverticulitis, s/p diverting loop colostomy, now s/p open sigmoid resection POD2. Doing OK. Pt denies CP/SOB/F/C/NV. Having some abdominal pain and chronic pain. On exam, VS OK, appears well, abdomen soft, appropriately TTP. Stoma is functional. Plan is soft diet, OOB with PT/nursing/ family. Remove jacobs and place commode at bedside. 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 Ordering PRN Adell, Dilaudid, encourage Toradol. Home meds/DM mgmt/electrolyte replacement per medicine. Continue PT for ambulation. Pt agrees with plan. Problems: Subjective 24 Hr Interval Summary Constitutional: other (pain) Respiratory: no complaints Cardiovascular: no complaints Gastrointestinal: pain Exam/Review of Systems Vital Signs Vitals Vital Signs Date Time Temp Pulse Resp B/P Pulse Ox O2 Delivery O2 Flow Rate FiO2 04/05/17 08:20 98.1 85 18 128/58 98 04/05/17 02:03 Nasal Cannula 2.0 04/04/17 15:02 21 Intake and Output 04/04/17 04/04/17 04/05/17 15:00 23:00 07:00 Intake Total 300 ml 900 ml 500 ml Output Total 720 ml 700 ml Balance 300 ml 180 ml -200 ml Exam Constitutional: alert Psych: no complaints Respiratory: clear to auscultation, crackles/rales (mild R base) Cardiovascular: regular rate and rhythm Gastrointestinal: soft, tender (appropriately TTP, wound intact with scant SS drainage. Stoma pink with stool and gas in bag) Results Result Diagram: 04/05/17 0500 04/05/17 0500 Results 24 hrs Laboratory Tests Test 04/04/17 13:10 04/04/17 17:53 04/04/17 18:08 04/04/17 18:34 Bedside Glucose 140 49 *L 52 L 96 Test 04/04/17 22:08 04/05/17 01:05 04/05/17 04:56 04/05/17 05:00 Bedside Glucose 120 84 98 White Blood Count 11.5 H Red Blood Count 2.97 L Hemoglobin 8.4 L Hematocrit 28.0 L Mean Corpuscular Volume 94.3 Mean Corpuscular Hemoglobin 28.3 L Mean Corpuscular Hemoglobin Concent 30.0 L Red Cell Distribution Width 15.2 H Platelet Count 287 Mean Platelet Volume 8.6 Neutrophils % 84.1 H Lymphocytes % 10.6 L Monocytes % 4.1 Eosinophils % 0.4 Basophils % 0.3 Nucleated Red Blood Cells % 0.0 Neutrophils # 9.7 H Lymphocytes # 1.2 Monocytes # 0.5 Eosinophils # 0.1 Basophils # 0.0 Nucleated Red Blood Cells # 0.0 Sodium Level 135 Potassium Level 3.1 L Chloride Level 102 Carbon Dioxide Level 30 Anion Gap 6 L Blood Urea Nitrogen 6 L Creatinine 0.35 L Glucose Level 80 # Calcium Level 8.4 Magnesium Level 1.6 L Test 04/05/17 08:54 Bedside Glucose 73 Medications Medications Current Medications Atenolol (Tenormin) 25 mg DAILY PO Last administered on 04/05/17 08:24; Admin Dose 25 MG; Start 04/04/17 at 09:00 Cyclobenzaprine HCl (Flexeril) 5 mg Q6H PRN PO PAIN; Start 04/03/17 at 15:30 Duloxetine HCl (Cymbalta) 60 mg BID PO Last administered on 04/05/17 08:26; Admin Dose 60 MG; Start 04/03/17 at 21:00 Ergocalciferol (Drisdol) 50,000 unit QMONDAY PO ; Start 04/03/17 at 17:00 Insulin Glargine (Lantus) 40 unit QAM SC Last administered on 04/04/17 09:12; Admin Dose 40 UNIT; Start 04/04/17 at 09:00 Magnesium Oxide (Mag-Ox 400) 400 mg BID PO Last administered on 04/05/17 08:25 ; Admin Dose 400 MG; Start 04/03/17 at 21:00 Paroxetine HCl (Paxil) 40 mg DAILY PO Last administered on 04/05/17 08:25; Admin Dose 40 MG; Start 04/04/17 at 09:00 Calcium Carbonate (Tums) 1,000 mg Q4H PRN PO UPSET STOMACH; Start 04/03/17 at 17:30 Atorvastatin Calcium (Lipitor) 10 mg DAILY@21 PO Last administered on 22:04; Admin Dose 10 MG; Start 04/03/17 at 21:00 Famotidine (Pepcid) 20 mg Q12 PO Last administered on 04/05/17 08:24; Admin Dose 20 MG; Start 04/03/17 at 21:00 Hydralazine HCl (Apresoline) 10 mg Q6H PRN IV SBP>160; Start 04/03/17 at 16:00 Miscellaneous Information 1 ea NOTE XX ; Start 04/03/17 at 16:00 Glucose (Glutose) 15 gm Q15M PRN PO DECREASED GLUCOSE; Start 04/03/17 at 16:00 Glucose (Glutose) 22.5 gm Q15M PRN PO DECREASED GLUCOSE; Start 04/03/17 at 16: 00 Dextrose (D50w Syringe) 25 ml Q15M PRN IV DECREASED GLUCOSE; Start 04/03/17 at 16:00 Dextrose (D50w Syringe) 50 ml Q15M PRN IV DECREASED GLUCOSE; Start 04/03/17 at 16:00 Glucagon (Glucagen) 1 mg Q15M PRN IM DECREASED GLUCOSE; Start 04/03/17 at 16:00 Glucose 15 gm 15 gm Q15M PRN BUCCAL DECREASED GLUCOSE; Start 04/03/17 at 16:00 Metronidazole (Flagyl 500 Mg (Pmx)) 100 ml @ 100 mls/hr Q8H IVPB Last administered on 04/05/17 02:08; Admin Dose 100 MLS/HR; Start 04/03/17 at 17:30 ; Stop 04/05/17 at 17:29 Ketorolac Tromethamine (Toradol) 15 mg Q6H PRN IV PAIN; Start 04/03/17 at 17:30 ; Stop 04/06/17 at 17:29 Ondansetron HCl (Zofran Inj) 4 mg Q6H PRN IV NAUSEA AND/OR VOMITING; Start 04/03/17 at 17:30 Phenol (Cepastat Lozenge) 1 lozenge PRN PRN MT SORE THROAT; Start 04/03/17 at 17:30 Naloxone HCl (Narcan) 0.2 mg Q2M PRN IV RR 8 BREATHS/MIN OR LESS; Start at 17:30 Hydromorphone HCl (Dilaudid LOCATION MANAGER) Q4PCA IV Last administered on 04/05/17 02:13 ; Admin Dose 6 MG; Start 04/03/17 at 17:30 Diagnostic Test (Pha) (Accu-Chek) 1 ea 02 XX Last administered on 04/04/17 01: 39; Admin Dose 1 EA; Start 04/04/17 at 02:00 Prednisone 5 mg 5 mg DAILY PO Last administered on 04/05/17 08:26; Admin Dose 5 MG; Start 04/04/17 at 09:00 Cefazolin Sodium/ Dextrose (Ancef 2 Gm/50 ml (Pmx)) 50 ml @ 100 mls/hr Q8 IVPB Last administered on 04/05/17 06:13; Admin Dose 100 MLS/HR; Start 04/03/17 at 22:00; Stop 04/05/17 at 21:59 Enoxaparin Sodium (Lovenox) 30 mg DAILY SC Last administered on 04/05/17 08:46 ; Admin Dose 30 MG; Start 04/05/17 at 09:00 Levothyroxine Sodium 100 mcg 100 mcg DAILY@06 PO Last administered on 06:12; Admin Dose 100 MCG; Start 04/05/17 at 06:00 Sodium Chloride 1,000 ml @ 100 mls/hr Q10H IV ; Start 04/05/17 at 09:00; Status UNV Potassium Chloride 250 ml @ 62.5 mls/hr ONCE ONCE IVPB ; Start 04/05/17 at 09: 00; Stop 04/05/17 at 12:59; Status UNV Magnesium Sulfate (Magnesium Sulfate 2 Gm/50 ml) 50 ml @ 25 mls/hr ONCE ONCE IVPB ; Start 04/05/17 at 09:00; Stop 04/05/17 at 10:59; Status UNV MOY BACON M.D. Apr 05, 2017 09:18
[2017-04-05] MEDS: INSULIN GLARGINE [LANtus] 3 ML PEN SC SCH (09:23)
[2017-04-05] MEDS ORDERED: HYDROCODONE/APAP (5/325) TAB PO PRN (09:30)
--- NOTE | 2017-04-05 09:51 | PN ---
Date/Time of Note Date/Time of Note DATE: 04/05/17 TIME: 09:51 Assessment/Plan Lines/Catheters IV Catheter Type (from [facility]): Peripheral IV Urinary Cath still in place: Yes Assessment/Plan Chief Complaint/Hosp Course 62-year-old female who was brought by her surgeon for elective sigmoid resection with possible takedown of colostomy, cystoscopy with ureteral stent/ catheter placement. 1.History of diverticular abscess/diverticulitis and rectovaginal fistula. -Status post Open sigmoidectomy WITH Cystoscopy and insertion of bilateral ureteral catheters. -F/u surgery recs postoperatively 2. Essential hypertension. Stable. -Continue home medications 3. DMII -Accu-Cheks/ISS/up pre-meal aspart to 10 units 3 times daily. Continue Lantus 40 units 4. Hypercholesterolemia. -Continue statin 5. Arthritis. -Continue home medications. 6. Hypothyroidism. -Patient with low TSH. Add T4 and adjust Synthroid dose accordingly. -Needs outpatient repeat labs in 6 weeks 7.History of exploratory laparotomy, I and D of pelvic abscess and diverting colostomy. 8. Tobacco use. -Cessation advised. DVT prophylaxis: Per surgery PUD prophylaxis: Pepcid. Plan: Continue post op management. Patient was seen in collaboration with Dr. Zhou. Problems: Exam/Review of Systems Vital Signs Vitals Vital Signs Date Time Temp Pulse Resp B/P Pulse Ox O2 Delivery O2 Flow Rate FiO2 04/05/17 08:20 98.1 85 18 128/58 98 04/05/17 02:03 Nasal Cannula 2.0 04/04/17 15:02 21 Intake and Output 04/04/17 04/04/17 04/05/17 15:00 23:00 07:00 Intake Total 300 ml 900 ml 500 ml Output Total 720 ml 700 ml Balance 300 ml 180 ml -200 ml Results Result Diagram: 04/05/17 0500 04/05/17 0500 Results 24 hrs Laboratory Tests Test 04/04/17 13:10 04/04/17 17:53 04/04/17 18:08 04/04/17 18:34 Bedside Glucose 140 49 *L 52 L 96 Test 04/04/17 22:08 04/05/17 01:05 04/05/17 04:56 04/05/17 05:00 Bedside Glucose 120 84 98 White Blood Count 11.5 H Red Blood Count 2.97 L Hemoglobin 8.4 L Hematocrit 28.0 L Mean Corpuscular Volume 94.3 Mean Corpuscular Hemoglobin 28.3 L Mean Corpuscular Hemoglobin Concent 30.0 L Red Cell Distribution Width 15.2 H Platelet Count 287 Mean Platelet Volume 8.6 Neutrophils % 84.1 H Lymphocytes % 10.6 L Monocytes % 4.1 Eosinophils % 0.4 Basophils % 0.3 Nucleated Red Blood Cells % 0.0 Neutrophils # 9.7 H Lymphocytes # 1.2 Monocytes # 0.5 Eosinophils # 0.1 Basophils # 0.0 Nucleated Red Blood Cells # 0.0 Sodium Level 135 Potassium Level 3.1 L Chloride Level 102 Carbon Dioxide Level 30 Anion Gap 6 L Blood Urea Nitrogen 6 L Creatinine 0.35 L Glucose Level 80 # Calcium Level 8.4 Magnesium Level 1.6 L Test 04/05/17 08:54 Bedside Glucose 73 Medications Medications Current Medications Atenolol (Tenormin) 25 mg DAILY PO Last administered on 04/05/17 08:24; Admin Dose 25 MG; Start 04/04/17 at 09:00 Cyclobenzaprine HCl (Flexeril) 5 mg Q6H PRN PO PAIN; Start 04/03/17 at 15:30 Duloxetine HCl (Cymbalta) 60 mg BID PO Last administered on 04/05/17 08:26; Admin Dose 60 MG; Start 04/03/17 at 21:00 Ergocalciferol (Drisdol) 50,000 unit QMONDAY PO ; Start 04/03/17 at 17:00 Insulin Glargine (Lantus) 40 unit QAM SC Last administered on 04/04/17 09:12; Admin Dose 40 UNIT; Start 04/04/17 at 09:00 Magnesium Oxide (Mag-Ox 400) 400 mg BID PO Last administered on 04/05/17 08:25 ; Admin Dose 400 MG; Start 04/03/17 at 21:00 Paroxetine HCl (Paxil) 40 mg DAILY PO Last administered on 04/05/17 08:25; Admin Dose 40 MG; Start 04/04/17 at 09:00 Calcium Carbonate (Tums) 1,000 mg Q4H PRN PO UPSET STOMACH; Start 04/03/17 at 17:30 Atorvastatin Calcium (Lipitor) 10 mg DAILY@21 PO Last administered on 22:04; Admin Dose 10 MG; Start 04/03/17 at 21:00 Famotidine (Pepcid) 20 mg Q12 PO Last administered on 04/05/17 08:24; Admin Dose 20 MG; Start 04/03/17 at 21:00 Hydralazine HCl (Apresoline) 10 mg Q6H PRN IV SBP>160; Start 04/03/17 at 16:00 Miscellaneous Information 1 ea NOTE XX ; Start 04/03/17 at 16:00 Glucose (Glutose) 15 gm Q15M PRN PO DECREASED GLUCOSE; Start 04/03/17 at 16:00 Glucose (Glutose) 22.5 gm Q15M PRN PO DECREASED GLUCOSE; Start 04/03/17 at 16: 00 Dextrose (D50w Syringe) 25 ml Q15M PRN IV DECREASED GLUCOSE; Start 04/03/17 at 16:00 Dextrose (D50w Syringe) 50 ml Q15M PRN IV DECREASED GLUCOSE; Start 04/03/17 at 16:00 Glucagon (Glucagen) 1 mg Q15M PRN IM DECREASED GLUCOSE; Start 04/03/17 at 16:00 Glucose 15 gm 15 gm Q15M PRN BUCCAL DECREASED GLUCOSE; Start 04/03/17 at 16:00 Metronidazole (Flagyl 500 Mg (Pmx)) 100 ml @ 100 mls/hr Q8H IVPB Last administered on 04/05/17 02:08; Admin Dose 100 MLS/HR; Start 04/03/17 at 17:30 ; Stop 04/05/17 at 17:29 Ketorolac Tromethamine (Toradol) 15 mg Q6H PRN IV PAIN; Start 04/03/17 at 17:30 ; Stop 04/06/17 at 17:29 Ondansetron HCl 4 mg 4 mg Q6H PRN IV NAUSEA AND/OR VOMITING; Start 04/03/17 at 17:30 Lactated Ringer's (Lr) 1,000 ml @ 75 mls/hr [id number] IV Last administered on 23:14; Admin Dose 75 MLS/HR; Start 04/03/17 at 17:21 Phenol (Cepastat Lozenge) 1 lozenge PRN PRN MT SORE THROAT; Start 04/03/17 at 17:30 Naloxone HCl (Narcan) 0.2 mg Q2M PRN IV RR 8 BREATHS/MIN OR LESS; Start at 17:30 Hydromorphone HCl (Dilaudid NICKEL PLATER) Q4PCA IV Last administered on 04/05/17 02:13 ; Admin Dose 6 MG; Start 04/03/17 at 17:30 Diagnostic Test (Pha) (Accu-Chek) 1 ea 02 XX Last administered on 04/04/17 01: 39; Admin Dose 1 EA; Start 04/04/17 at 02:00 Prednisone 5 mg 5 mg DAILY PO Last administered on 04/05/17 08:26; Admin Dose 5 MG; Start 04/04/17 at 09:00 Cefazolin Sodium/ Dextrose (Ancef 2 Gm/50 ml (Pmx)) 50 ml @ 100 mls/hr Q8 IVPB Last administered on 04/05/17 06:13; Admin Dose 100 MLS/HR; Start 04/03/17 at 22:00; Stop 04/05/17 at 21:59 Insulin Aspart (Novolog Insulin Pen) (Adult SC Insulin - Mild Algorithm)... Q4 SC Last administered on 04/04/17 09:11; Admin Dose 2 UNIT; Start 04/04/17 at 01:00 Enoxaparin Sodium (Lovenox) 30 mg DAILY SC Last administered on 04/05/17 08:46 ; Admin Dose 30 MG; Start 04/05/17 at 09:00 Levothyroxine Sodium (Synthroid) 100 mcg DAILY@06 PO Last administered on 06:12; Admin Dose 100 MCG; Start 04/05/17 at 06:00 MANE MATA NP Apr 05, 2017 09:51
[2017-04-05] MEDS: HYDROmorphONE 1 MG/ML SYG IV PRN ×3 (10:27→20:27)
[2017-04-05] MEDS ORDERED: POTASSIUM CHLORIDE 250 ML IVPB ONE (11:00)
[2017-04-05] MEDS ORDERED: MAGNESIUM SULFATE 2 GM/50 ML 50 ML IVPB ONE (11:00)
[2017-04-05] MEDS ORDERED: INSULIN ASPART [NOVOLOG] 3 ML PEN SC SCH ×2 (11:10→11:40)
--- NOTE | 2017-04-05 12:47 | CONS ---
Date/Time of Note Date/Time of Note DATE: 04/05/17 TIME: 12:44 Assessment/Plan Assessment/Plan Chief Complaint/Hosp Course 62-year-old female who was brought by her surgeon for elective sigmoid resection with possible takedown of colostomy, cystoscopy with ureteral stent/ catheter placement. 1.History of diverticular abscess/diverticulitis and rectovaginal fistula. -Status post Open sigmoidectomy WITH Cystoscopy and insertion of bilateral ureteral catheters. POD #2 -F/u surgery recs postoperatively 2. Essential hypertension. Stable. -Continue home medications 3. DMII. Patient with hypoglycemic events. -De-escalate pre-meal aspart to 5 units 3 times daily. Continue with Accu-Cheks /ISS/Lantus. -Carbohydrate controlled diet 4. Hypercholesterolemia. -Continue statin 5. Arthritis. -Continue home medications. 6. Hypothyroidism. -Patient with low TSH and high end of T4 levels. We will titrate down Synthroid to 100 mcg. -Needs outpatient repeat labs in 6 weeks 7.History of exploratory laparotomy, I and D of pelvic abscess and diverting colostomy. 8.Leukocytosis, likely reactive. Urine culture negative. Will monitor. 9. Hypokalemia with hypomagnesemia. Will replete and monitor. 10. Tobacco use. -Cessation advised. DVT prophylaxis: Per surgery PUD prophylaxis: Pepcid. 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 Encourage incentive spirometry, and ambulation. Continue post op management. Patient was seen in collaboration with Dr. Zhou. Problems: Consultation Date/Type/Reason Admit Date/Time Apr 03, 2017 at 10:32 Initial Consult Date 04/03/17 Type of Consultation: Internal medicine Referring Provider: MOY BACON M.D. 24 HR Interval Summary Free Text/Dictation Patient had one episode of hypoglycemia, asymptomatic. She has been getting insulin coverage every 4 hours although patient has been transitioned to oral. Patient sitting up in chair. Having pain on surgical area. Exam/Review of Systems Vital Signs Vitals Vital Signs Date Time Temp Pulse Resp B/P Pulse Ox O2 Delivery O2 Flow Rate FiO2 04/05/17 09:00 Nasal Cannula 2.0 04/05/17 09:00 18 04/05/17 08:20 98.1 85 128/58 98 04/04/17 15:02 21 Intake and Output 04/04/17 04/04/17 04/05/17 15:00 23:00 07:00 Intake Total 300 ml 900 ml 500 ml Output Total 720 ml 700 ml Balance 300 ml 180 ml -200 ml Exam General: Well developed,adequately built, not in any acute distress . HEENT: Normocephalic, Atraumatic, No laceration or hematoma; Eyes: PEERL, Conjunctiva clear, Anicteric sclera Neck: Supple without any lymphadenopathy, nontender, no JVD, no carotid bruits, trachea midline, no thyromegaly Cardiac: S1, S2 auscultated, regular rhythm and rate, no mumurs or gallop Pulmonary: Normal respiratory effort. Chest clear to auscultation bilaterally, no adventitious breath sounds GI: Left upper quadrant colostomy bag draining stool. Stoma intact. Otherwise , abdomen normal to inspection. Soft, non tender, non- distended, no masses, no rebound tenderness or guarding. Bowel sounds active on all four quadrants Genitourinary: Deferred Extremities: No cyanosis, clubbing, or edema. Pulses [2+] bilaterally. Full ROM on all four extremities. No focal weakness appreciated. Neurologic: Alert to person, place, time, and situation. Affect appropriate, intact sensation. Skin: Clean,dry, and intact. No ecchymosis, no rashes, or lesions Results Result Diagram: 04/05/17 0500 04/05/17 0500 Results 24 hrs Laboratory Tests Test 04/04/17 13:10 04/04/17 17:53 04/04/17 18:08 04/04/17 18:34 Bedside Glucose 140 49 *L 52 L 96 Test 04/04/17 22:08 04/05/17 01:05 04/05/17 04:56 04/05/17 05:00 Bedside Glucose 120 84 98 White Blood Count 11.5 H Red Blood Count 2.97 L Hemoglobin 8.4 L Hematocrit 28.0 L Mean Corpuscular Volume 94.3 Mean Corpuscular Hemoglobin 28.3 L Mean Corpuscular Hemoglobin Concent 30.0 L Red Cell Distribution Width 15.2 H Platelet Count 287 Mean Platelet Volume 8.6 Neutrophils % 84.1 H Lymphocytes % 10.6 L Monocytes % 4.1 Eosinophils % 0.4 Basophils % 0.3 Nucleated Red Blood Cells % 0.0 Neutrophils # 9.7 H Lymphocytes # 1.2 Monocytes # 0.5 Eosinophils # 0.1 Basophils # 0.0 Nucleated Red Blood Cells # 0.0 Sodium Level 135 Potassium Level 3.1 L Chloride Level 102 Carbon Dioxide Level 30 Anion Gap 6 L Blood Urea Nitrogen 6 L Creatinine 0.35 L Glucose Level 80 # Calcium Level 8.4 Magnesium Level 1.6 L Test 04/05/17 08:54 Bedside Glucose 73 Medications Medications Current Medications Atenolol (Tenormin) 25 mg DAILY PO Last administered on 04/05/17 08:24; Admin Dose 25 MG; Start 04/04/17 at 09:00 Cyclobenzaprine HCl (Flexeril) 5 mg Q6H PRN PO PAIN; Start 04/03/17 at 15:30 Duloxetine HCl (Cymbalta) 60 mg BID PO Last administered on 04/05/17 08:26; Admin Dose 60 MG; Start 04/03/17 at 21:00 Ergocalciferol (Drisdol) 50,000 unit QMONDAY PO ; Start 04/03/17 at 17:00 Insulin Glargine (Lantus) 40 unit QAM SC Last administered on 04/05/17 09:23; Admin Dose 40 UNIT; Start 04/04/17 at 09:00 Magnesium Oxide (Mag-Ox 400) 400 mg BID PO Last administered on 04/05/17 08:25 ; Admin Dose 400 MG; Start 04/03/17 at 21:00 Paroxetine HCl (Paxil) 40 mg DAILY PO Last administered on 04/05/17 08:25; Admin Dose 40 MG; Start 04/04/17 at 09:00 Calcium Carbonate (Tums) 1,000 mg Q4H PRN PO UPSET STOMACH; Start 04/03/17 at 17:30 Atorvastatin Calcium (Lipitor) 10 mg DAILY@21 PO Last administered on 22:04; Admin Dose 10 MG; Start 04/03/17 at 21:00 Famotidine (Pepcid) 20 mg Q12 PO Last administered on 04/05/17 08:24; Admin Dose 20 MG; Start 04/03/17 at 21:00 Hydralazine HCl (Apresoline) 10 mg Q6H PRN IV SBP>160; Start 04/03/17 at 16:00 Miscellaneous Information 1 ea NOTE XX ; Start 04/03/17 at 16:00 Glucose (Glutose) 15 gm Q15M PRN PO DECREASED GLUCOSE; Start 04/03/17 at 16:00 Glucose (Glutose) 22.5 gm Q15M PRN PO DECREASED GLUCOSE; Start 04/03/17 at 16: 00 Dextrose (D50w Syringe) 25 ml Q15M PRN IV DECREASED GLUCOSE; Start 04/03/17 at 16:00 Dextrose (D50w Syringe) 50 ml Q15M PRN IV DECREASED GLUCOSE; Start 04/03/17 at 16:00 Glucagon (Glucagen) 1 mg Q15M PRN IM DECREASED GLUCOSE; Start 04/03/17 at 16:00 Glucose 15 gm 15 gm Q15M PRN BUCCAL DECREASED GLUCOSE; Start 04/03/17 at 16:00 Metronidazole (Flagyl 500 Mg (Pmx)) 100 ml @ 100 mls/hr Q8H IVPB Last administered on 04/05/17 09:35; Admin Dose 100 MLS/HR; Start 04/03/17 at 17:30 ; Stop 04/05/17 at 17:29 Ketorolac Tromethamine (Toradol) 15 mg Q6H PRN IV PAIN; Start 04/03/17 at 17:30 ; Stop 04/06/17 at 17:29 Ondansetron HCl (Zofran Inj) 4 mg Q6H PRN IV NAUSEA AND/OR VOMITING; Start 04/03/17 at 17:30 Phenol (Cepastat Lozenge) 1 lozenge PRN PRN MT SORE THROAT; Start 04/03/17 at 17:30 Diagnostic Test (Pha) (Accu-Chek) 1 ea 02 XX Last administered on 04/04/17 01: 39; Admin Dose 1 EA; Start 04/04/17 at 02:00 Prednisone 5 mg 5 mg DAILY PO Last administered on 04/05/17 08:26; Admin Dose 5 MG; Start 04/04/17 at 09:00 Cefazolin Sodium/ Dextrose (Ancef 2 Gm/50 ml (Pmx)) 50 ml @ 100 mls/hr Q8 IVPB Last administered on 04/05/17 06:13; Admin Dose 100 MLS/HR; Start 04/03/17 at 22:00; Stop 04/05/17 at 21:59 Enoxaparin Sodium (Lovenox) 30 mg DAILY SC Last administered on 04/05/17 08:46 ; Admin Dose 30 MG; Start 04/05/17 at 09:00 Levothyroxine Sodium 100 mcg 100 mcg DAILY@06 PO Last administered on 06:12; Admin Dose 100 MCG; Start 04/05/17 at 06:00 Potassium Chloride 250 ml @ 62.5 mls/hr ONCE ONCE IVPB ; Start 04/05/17 at 11: 00; Stop 04/05/17 at 14:59 Magnesium Sulfate (Magnesium Sulfate 2 Gm/50 ml) 50 ml @ 25 mls/hr ONCE ONCE IVPB Last administered on 04/05/17 11:34; Admin Dose 25 MLS/HR; Start at 11:00; Stop 04/05/17 at 12:59 Acetaminophen/ Hydrocodone Bitart ([place] (5/325)) Give for pain Q4H PRN PO PAIN LEVEL 1-3; Start 04/05/17 at 09:30 Hydromorphone HCl (Dilaudid) 0.5 mg Q4H PRN IV PAIN Last administered on 10:27; Admin Dose 0.5 MG; Start 04/05/17 at 09:30 MANE MATA NP Apr 05, 2017 12:47
[2017-04-05] MEDS: DEXTROSE 50% 50 ML SYRINGE IV PRN ×2 (13:02→22:44)
[2017-04-05 14:27] VITALS: BP 128/60; RESP 18
[2017-04-05] MEDS: KETOROLAC 15 MG INJ IV PRN (20:31)
[2017-04-05 20:42] VITALS: BP 117/72; RESP 20
[2017-04-05] MEDS: ATORVASTATIN 10 MG TAB PO SCH (20:57)
[2017-04-05] MEDS ORDERED: HYDROmorphONE 1 MG/ML SYG IV ONE (22:43)
[2017-04-06] MEDS: ONDANSETRON 4 MG INJ IV PRN ×4 (01:34→22:00)
[2017-04-06] MEDS: ALBUTEROL/IPRATROPIUM (NEB) 3 ML AMP HHN SCH ×4 (01:41→19:53)
[2017-04-06] MEDS: HYDROCODONE/APAP (5/325) TAB PO PRN ×2 (01:57→14:36)
[2017-04-06] MEDS: ACCU-CHEK XX SCH (02:00)
[2017-04-06] MEDS: KETOROLAC 15 MG INJ IV PRN ×2 (02:25→10:17)
[2017-04-06 02:32] VITALS: BP 123/58; RESP 20
[2017-04-06] MEDS: DEXTROSE 50% 50 ML SYRINGE IV PRN (02:53)
[2017-04-06] MEDS ORDERED: DEXTROSE 5%-0.45% NACL 1,000 ML IV SCH (03:00)
[2017-04-06] MEDS: HYDROmorphONE 1 MG/ML SYG IV PRN ×5 (03:17→19:57)
[2017-04-06 05:40] LABS: ABNORMAL IP MESSAGE 1; BASOPHILS % 0.1 % (0.0-2.0); EOSINOPHILS % 0.3 % (0.0-7.0); HEMOGLOBIN 9.6 g/dl (12.0-16.0); LYMPHOCYTES # 0.5 10^3/ul (0.8-2.9); LYMPHOCYTES % 5.4 % (15.0-51.0); MEAN CORPUSCULAR HEMOGLOBIN 28.2 pg (29.0-33.0); MEAN CORPUSCULAR VOLUME 94.1 fl (82.0-101.0); MEAN PLATELET VOLUME 8.5 fl (7.4-10.4); MONOCYTE # 0.4 10^3/ul (0.3-0.9); MONOCYTES % 4.1 % (0.0-11.0); NEUTROPHIL # 7.9 10^3/ul (1.6-7.5); NEUTROPHILS % 89.6 % (39.0-77.0); PLATELET COUNT 374 10^3/UL (140-415); WHITE BLOOD COUNT 8.8 10^3/ul (4.8-10.8)
[2017-04-06 05:45] LABS: POSITIVE DIFF @See below
[2017-04-06 06:17] LABS: CALCIUM 9.6 mg/dl (8.4-10.2); CREATININE 0.42 mg/dl (0.44-1.00); MAGNESIUM 2.1 mg/dl (1.7-2.5); POTASSIUM 3.3 mmol/L (3.5-5.1)
[2017-04-06] MEDS: LEVOTHYROXINE 100 MCG TAB PO SCH (07:01)
[2017-04-06] MEDS: INSULIN ASPART [NOVOLOG] 3 ML PEN SC SCH (07:20)
[2017-04-06] MEDS: GABAPENTIN 100 MG CAP PO SCH (07:50)
[2017-04-06 07:53] VITALS: BP 137/60; RESP 20
[2017-04-06] MEDS: PAROXETINE 20 MG TAB PO SCH (09:00)
[2017-04-06] MEDS: ATENOLOL 25 MG TAB PO SCH (09:00)
[2017-04-06] MEDS: MAGNESIUM OXIDE 400 MG TAB PO SCH ×2 (09:00→21:00)
[2017-04-06] MEDS ORDERED: INSULIN GLARGINE [LANtus] 3 ML PEN SC SCH ×2 (09:00→21:00)
[2017-04-06] MEDS: DULOXETINE 30 MG CAP DR PO SCH ×2 (09:00→21:00)
[2017-04-06] MEDS: predniSONE 5 MG TAB PO SCH (09:00)
--- NOTE | 2017-04-06 09:05 | PN ---
Date/Time of Note Date/Time of Note DATE: 04/06/17 TIME: 08:57 Assessment/Plan VTE Prophylaxis VTE Prophylaxis Intervention: ambulation, LMWH, SCD's Lines/Catheters IV Catheter Type (from Nrsg): Saline Lock Urinary Cath still in place: No Assessment/Plan Chief Complaint/Hosp Course [id number] Woman h/o diverticulitis, s/p diverting loop colostomy, now s/p open sigmoid resection POD3. Overnight had hypoglycemic episodes. Medicine following. Glucose this AM 119. Had some nausea during these episodes. This AM, reports some nausea but agreeable with trying PO. VS OK, Hct stable, urine output OK (300 measured but pt states had more output straight into toilet - believes she is urinating a lot), stoma output "moderate". Appears OK, abdomen is soft, stoma pink with stool and gas in bag. Plan is to see if pt tolerates diet. If so, and post prandial glucose OK, try D/Cing IVF. [place]win, Toradol for pain. Dilaudid for breakthrough. Continue PT for ambulation - rehab eval. Appreciate medicine following. Problems: Subjective 24 Hr Interval Summary Respiratory: no complaints Cardiovascular: no complaints Gastrointestinal: pain Exam/Review of Systems Vital Signs Vitals Vital Signs Date Time Temp Pulse Resp B/P Pulse Ox O2 Delivery O2 Flow Rate FiO2 04/06/17 07:53 98.3 84 20 137/60 98 04/06/17 01:42 Nasal Cannula 3.0 04/04/17 15:02 21 Intake and Output 04/05/17 04/05/17 04/06/17 15:00 23:00 07:00 Intake Total 200 ml 1090 ml 120 ml Output Total 300 ml Balance 200 ml 790 ml 120 ml Exam Constitutional: alert, oriented Respiratory: clear to auscultation Cardiovascular: regular rate and rhythm Gastrointestinal: soft, tender (Wound C/D/I, stoma pink with stool and gas in bag, appropriately TTP) Results Result Diagram: 04/06/17 0435 04/06/17 0435 Results 24 hrs Laboratory Tests Test 04/05/17 12:54 04/05/17 13:10 04/05/17 13:24 04/05/17 14:24 Bedside Glucose 44 *L 154 123 101 Test 04/05/17 18:15 04/05/17 20:29 04/05/17 20:48 04/05/17 20:59 Bedside Glucose 96 68 L 71 68 L Test 04/05/17 21:27 04/05/17 21:57 04/05/17 22:18 04/05/17 22:41 Bedside Glucose 66 L 78 70 68 L Test 04/05/17 23:06 04/05/17 23:28 04/06/17 01:32 04/06/17 02:21 Bedside Glucose 138 103 82 79 Test 04/06/17 02:41 04/06/17 02:59 04/06/17 03:25 04/06/17 04:35 Bedside Glucose 76 210 147 White Blood Count 8.8 # Red Blood Count 3.40 L Hemoglobin 9.6 L Hematocrit 32.0 L Mean Corpuscular Volume 94.1 Mean Corpuscular Hemoglobin 28.2 L Mean Corpuscular Hemoglobin Concent 30.0 L Red Cell Distribution Width 15.0 H Platelet Count 374 # Mean Platelet Volume 8.5 Neutrophils % 89.6 H Lymphocytes % 5.4 L Monocytes % 4.1 Eosinophils % 0.3 Basophils % 0.1 Nucleated Red Blood Cells % 0.0 Neutrophils # 7.9 H Lymphocytes # 0.5 L Monocytes # 0.4 Eosinophils # 0.0 Basophils # 0.0 Nucleated Red Blood Cells # 0.0 Sodium Level 140 Potassium Level 3.3 L Chloride Level 105 Carbon Dioxide Level 31 Anion Gap 7 L Blood Urea Nitrogen 6 L Creatinine 0.42 L Glucose Level 136 # Calcium Level 9.6 Magnesium Level 2.1 Test 04/06/17 06:59 Bedside Glucose 119 Medications Medications Current Medications Atenolol (Tenormin) 25 mg DAILY PO Last administered on 04/05/17 08:24; Admin Dose 25 MG; Start 04/04/17 at 09:00 Cyclobenzaprine HCl (Flexeril) 5 mg Q6H PRN PO PAIN; Start 04/03/17 at 15:30 Duloxetine HCl (Cymbalta) 60 mg BID PO Last administered on 04/05/17 20:56; Admin Dose 60 MG; Start 04/03/17 at 21:00 Ergocalciferol (Drisdol) 50,000 unit QMONDAY PO ; Start 04/03/17 at 17:00 Magnesium Oxide (Mag-Ox 400) 400 mg BID PO Last administered on 04/05/17 20:57 ; Admin Dose 400 MG; Start 04/03/17 at 21:00 Paroxetine HCl (Paxil) 40 mg DAILY PO Last administered on 04/05/17 08:25; Admin Dose 40 MG; Start 04/04/17 at 09:00 Calcium Carbonate (Tums) 1,000 mg Q4H PRN PO UPSET STOMACH; Start 04/03/17 at 17:30 Atorvastatin Calcium (Lipitor) 10 mg DAILY@21 PO Last administered on 20:57; Admin Dose 10 MG; Start 04/03/17 at 21:00 Famotidine (Pepcid) 20 mg Q12 PO Last administered on 04/05/17 20:57; Admin Dose 20 MG; Start 04/03/17 at 21:00 Hydralazine HCl (Apresoline) 10 mg Q6H PRN IV SBP>160; Start 04/03/17 at 16:00 Miscellaneous Information 1 ea NOTE XX ; Start 04/03/17 at 16:00 Glucose (Glutose) 15 gm Q15M PRN PO DECREASED GLUCOSE; Start 04/03/17 at 16:00 Glucose (Glutose) 22.5 gm Q15M PRN PO DECREASED GLUCOSE; Start 04/03/17 at 16: 00 Dextrose (D50w Syringe) 25 ml Q15M PRN IV DECREASED GLUCOSE Last administered on 04/06/17 02:53; Admin Dose 25 ML; Start 04/03/17 at 16:00 Dextrose (D50w Syringe) 50 ml Q15M PRN IV DECREASED GLUCOSE; Start 04/03/17 at 16:00 Glucagon (Glucagen) 1 mg Q15M PRN IM DECREASED GLUCOSE; Start 04/03/17 at 16:00 Glucose (Glutose) 15 gm Q15M PRN BUCCAL DECREASED GLUCOSE; Start 04/03/17 at 16 :00 Ketorolac Tromethamine (Toradol) 15 mg Q6H PRN IV PAIN Last administered on 02:25; Admin Dose 15 MG; Start 04/03/17 at 17:30; Stop 04/06/17 at 17:29 Ondansetron HCl (Zofran Inj) 4 mg Q6H PRN IV NAUSEA AND/OR VOMITING Last administered on 04/06/17 01:34; Admin Dose 4 MG; Start 04/03/17 at 17:30 Phenol (Cepastat Lozenge) 1 lozenge PRN PRN MT SORE THROAT; Start 04/03/17 at 17:30 Diagnostic Test (Pha) (Accu-Chek) 1 ea 02 XX Last administered on 04/04/17 01: 39; Admin Dose 1 EA; Start 04/04/17 at 02:00 Prednisone (Prednisone) 5 mg DAILY PO Last administered on 04/05/17 08:26; Admin Dose 5 MG; Start 04/04/17 at 09:00 Enoxaparin Sodium (Lovenox) 30 mg DAILY SC Last administered on 04/05/17 08:46 ; Admin Dose 30 MG; Start 04/05/17 at 09:00 Levothyroxine Sodium (Synthroid) 100 mcg DAILY@06 PO Last administered on 07:01; Admin Dose 100 MCG; Start 04/05/17 at 06:00 Acetaminophen/ Hydrocodone Bitart ([place] (5/325)) Give for pain Q4H PRN PO PAIN LEVEL 1-3 Last administered on 04/05/17 20:57; Admin Dose 1 TAB; Start at 09:30 Hydromorphone HCl (Dilaudid) 0.5 mg Q4H PRN IV PAIN Last administered on 07:54; Admin Dose 0.5 MG; Start 04/05/17 at 09:30 Insulin Glargine (Lantus) 20 unit QAM SC ; Start 04/06/17 at 09:00 Acetaminophen/ Hydrocodone Bitart 2 tab 2 tab Q4H PRN PO PAIN Last administered on 04/06/17 01:57; Admin Dose 2 TAB; Start 04/06/17 at 01:25 Dextrose/Sodium Chloride (D5-1/2ns) 1,000 ml @ 60 mls/hr [id number] IV Last administered on 04/06/17 03:02; Admin Dose 60 MLS/HR; Start 04/06/17 at 03:00 MOY BACON M.D. Apr 06, 2017 09:05
[2017-04-06] MEDS: ENOXAPARIN 30 MG/0.3 ML SYG SC SCH (09:28)
--- NOTE | 2017-04-06 10:40 | PN ---
Date/Time of Note Date/Time of Note DATE: 04/06/17 TIME: 10:25 Assessment/Plan VTE Prophylaxis VTE Prophylaxis Intervention: LMWH Lines/Catheters IV [facility] Type [facility]from [facility] Urinary Cath still in place: No Assessment/Plan Chief Complaint/Hosp Course 62-year-old female who was brought by her surgeon for elective sigmoid resection with possible takedown of colostomy, cystoscopy with ureteral stent/ catheter placement. 1.History of diverticular abscess/diverticulitis and rectovaginal fistula. -Status post Open sigmoidectomy WITH Cystoscopy and insertion of bilateral ureteral catheters. POD #2 -Post op anticoagulation, pain control and abx per surgery. 2. Essential hypertension. Stable. -Continue home medications 3. DMII. Patient with hypoglycemic events-this is secondary to poor intake while receiving insulin. -At this time, we recommend continuation of dextrose containing IVfs until she tolerates diet to maintain euglycemia. -STOP premeal as patient with poor oral tolerance. Continue with Accu-Cheks/ ISS. Change Lantus to 12 units (minimal requirement) to HS. -Carbohydrate controlled diet 4.Post operative Intractable nausea/vomiting. -Surgery on board- diet has been advanced -However patient with poor tolerence. -Recommend adding Reglan around the clock x 24hrs. Continue PRN zofran. -DC PO Pepcid and change to IV PPIs. 5. Hypercholesterolemia. -Continue statin 6. Arthritis. -Continue home medications. 7. Hypothyroidism. -Patient with low TSH and high end of T4 levels. Continue adjusted dose of Synthroid 100 mcg. -Needs outpatient repeat labs in 6 weeks 8.History of exploratory laparotomy, I and D of pelvic abscess and diverting colostomy. 9.Leukocytosis, likely reactive . Urine culture negative. Will monitor. -on cipro+flagyl per surgery. 10. Hypokalemia 2/2 GI loss. Continue repletion and monitor.Add K to IV until she tolerates diet. 11. Tobacco use. -Cessation advised. DVT prophylaxis: Per surgery PUD prophylaxis: Pepcid. Plan: At this time, per medicine standpoint, we recommend continuation of systemic hydration until patient tolerates diet. Patient needs electrolyte monitoring 2/2 GI loss and poor intake. Patient needs close blood sugar monitoring. Encourage incentive spirometry, and ambulation. Continue post op management. Patient was seen in collaboration with Dr. Zhou. Problems: Subjective 24 Hr Interval Summary Free Text/Dictation Patient with ongoing nausea/vomiting.She is not tolerating diet advancement.He blood sugar has been very labile with lowest being 69,symptomatic requiring D50 multiple times overnight. Currently on continuous IVFs with a more stable BS pattern. Exam/Review of Systems Vital Signs Vitals Vital Signs Date Time Temp Pulse Resp B/P Pulse Ox O2 Delivery O2 Flow Rate FiO2 04/06/17 08:15 Nasal Cannula 2.0 04/06/17 07:53 98.3 84 20 137/60 98 04/04/17 15:02 21 Intake and Output 04/05/17 04/05/17 04/06/17 15:00 23:00 07:00 Intake Total 200 ml 1090 ml 1080 ml Output Total 300 ml 1250 ml Balance 200 ml 790 ml -170 ml Exam General: Well developed,adequately built, not in any acute distress . HEENT: Normocephalic, Atraumatic, No laceration or hematoma; Eyes: PEERL, Conjunctiva clear, Anicteric sclera Neck: Supple without any lymphadenopathy, nontender, no JVD, no carotid bruits, trachea midline, no thyromegaly Cardiac: S1, S2 auscultated, regular rhythm and rate, no mumurs or gallop Pulmonary: Normal respiratory effort. Chest clear to auscultation bilaterally, no adventitious breath sounds GI: Left upper quadrant colostomy bag draining stool. +Nausea/vomiting. Stoma intact. Otherwise, abdomen normal to inspection. Soft, non tender, non- distended, no masses, no rebound tenderness or guarding. Bowel sounds active on all four quadrants Genitourinary: Deferred Extremities: No cyanosis, clubbing, or edema. Pulses [2+] bilaterally. Full ROM on all four extremities. No focal weakness appreciated. Neurologic: Alert to person, place, time, and situation. Affect appropriate, intact sensation. Skin: Clean,dry, and intact. No ecchymosis, no rashes, or lesions Results Result Diagram: 04/06/17 0435 04/06/17 0435 Results 24 hrs Laboratory Tests Test 04/05/17 12:54 04/05/17 13:10 04/05/17 13:24 04/05/17 14:24 Bedside Glucose 44 *L 154 123 101 Test 04/05/17 18:15 04/05/17 20:29 04/05/17 20:48 04/05/17 20:59 Bedside Glucose 96 68 L 71 68 L Test 04/05/17 21:27 04/05/17 21:57 04/05/17 22:18 04/05/17 22:41 Bedside Glucose 66 L 78 70 68 L Test 04/05/17 23:06 04/05/17 23:28 04/06/17 01:32 04/06/17 02:21 Bedside Glucose 138 103 82 79 Test 04/06/17 02:41 04/06/17 02:59 04/06/17 03:25 04/06/17 04:35 Bedside Glucose 76 210 147 White Blood Count 8.8 # Red Blood Count 3.40 L Hemoglobin 9.6 L Hematocrit 32.0 L Mean Corpuscular Volume 94.1 Mean Corpuscular Hemoglobin 28.2 L Mean Corpuscular Hemoglobin Concent 30.0 L Red Cell Distribution Width 15.0 H Platelet Count 374 # Mean Platelet Volume 8.5 Neutrophils % 89.6 H Lymphocytes % 5.4 L Monocytes % 4.1 Eosinophils % 0.3 Basophils % 0.1 Nucleated Red Blood Cells % 0.0 Neutrophils # 7.9 H Lymphocytes # 0.5 L Monocytes # 0.4 Eosinophils # 0.0 Basophils # 0.0 Nucleated Red Blood Cells # 0.0 Sodium Level 140 Potassium Level 3.3 L Chloride Level 105 Carbon Dioxide Level 31 Anion Gap 7 L Blood Urea Nitrogen 6 L Creatinine 0.42 L Glucose Level 136 # Calcium Level 9.6 Magnesium Level 2.1 Test 04/06/17 06:59 04/06/17 09:05 Bedside Glucose 119 137 Medications Medications Current Medications Atenolol (Tenormin) 25 mg DAILY PO Last administered on 04/05/17 08:24; Admin Dose 25 MG; Start 04/04/17 at 09:00 Cyclobenzaprine HCl (Flexeril) 5 mg Q6H PRN PO PAIN; Start 04/03/17 at 15:30 Duloxetine HCl (Cymbalta) 60 mg BID PO Last administered on 04/05/17 20:56; Admin Dose 60 MG; Start 04/03/17 at 21:00 Ergocalciferol (Drisdol) 50,000 unit QMONDAY PO ; Start 04/03/17 at 17:00 Magnesium Oxide (Mag-Ox 400) 400 mg BID PO Last administered on 04/05/17 20:57 ; Admin Dose 400 MG; Start 04/03/17 at 21:00 Paroxetine HCl (Paxil) 40 mg DAILY PO Last administered on 04/05/17 08:25; Admin Dose 40 MG; Start 04/04/17 at 09:00 Calcium Carbonate (Tums) 1,000 mg Q4H PRN PO UPSET STOMACH; Start 04/03/17 at 17:30 Atorvastatin Calcium (Lipitor) 10 mg DAILY@21 PO Last administered on 20:57; Admin Dose 10 MG; Start 04/03/17 at 21:00 Famotidine (Pepcid) 20 mg Q12 PO Last administered on 04/05/17 20:57; Admin Dose 20 MG; Start 04/03/17 at 21:00 Hydralazine HCl (Apresoline) 10 mg Q6H PRN IV SBP>160; Start 04/03/17 at 16:00 Miscellaneous Information 1 ea NOTE XX ; Start 04/03/17 at 16:00 Glucose (Glutose) 15 gm Q15M PRN PO DECREASED GLUCOSE; Start 04/03/17 at 16:00 Glucose (Glutose) 22.5 gm Q15M PRN PO DECREASED GLUCOSE; Start 04/03/17 at 16: 00 Dextrose (D50w Syringe) 25 ml Q15M PRN IV DECREASED GLUCOSE Last administered on 04/06/17 02:53; Admin Dose 25 ML; Start 04/03/17 at 16:00 Dextrose (D50w Syringe) 50 ml Q15M PRN IV DECREASED GLUCOSE; Start 04/03/17 at 16:00 Glucagon (Glucagen) 1 mg Q15M PRN IM DECREASED GLUCOSE; Start 04/03/17 at 16:00 Glucose (Glutose) 15 gm Q15M PRN BUCCAL DECREASED GLUCOSE; Start 04/03/17 at 16 :00 Ketorolac Tromethamine (Toradol) 15 mg Q6H PRN IV PAIN Last administered on 02:25; Admin Dose 15 MG; Start 04/03/17 at 17:30; Stop 04/06/17 at 17:29 Ondansetron HCl (Zofran Inj) 4 mg Q6H PRN IV NAUSEA AND/OR VOMITING Last administered on 04/06/17 09:03; Admin Dose 4 MG; Start 04/03/17 at 17:30 Phenol (Cepastat Lozenge) 1 lozenge PRN PRN MT SORE THROAT; Start 04/03/17 at 17:30 Diagnostic Test (Pha) (Accu-Chek) 1 ea 02 XX Last administered on 04/04/17 01: 39; Admin Dose 1 EA; Start 04/04/17 at 02:00 Prednisone (Prednisone) 5 mg DAILY PO Last administered on 04/05/17 08:26; Admin Dose 5 MG; Start 04/04/17 at 09:00 Enoxaparin Sodium (Lovenox) 30 mg DAILY SC Last administered on 04/06/17 09:28 ; Admin Dose 30 MG; Start 04/05/17 at 09:00 Levothyroxine Sodium (Synthroid) 100 mcg DAILY@06 PO Last administered on 07:01; Admin Dose 100 MCG; Start 04/05/17 at 06:00 Acetaminophen/ Hydrocodone Bitart ([place] (5/325)) Give for pain Q4H PRN PO PAIN LEVEL 1-3 Last administered on 04/05/17 20:57; Admin Dose 1 TAB; Start at 09:30 Hydromorphone HCl (Dilaudid) 0.5 mg Q4H PRN IV PAIN Last administered on 07:54; Admin Dose 0.5 MG; Start 04/05/17 at 09:30 Insulin Glargine (Lantus) 20 unit QAM SC ; Start 04/06/17 at 09:00 Acetaminophen/ Hydrocodone Bitart 2 tab 2 tab Q4H PRN PO PAIN Last administered on 04/06/17 01:57; Admin Dose 2 TAB; Start 04/06/17 at 01:25 Dextrose/Sodium Chloride (D5-1/2ns) 1,000 ml @ 60 mls/hr [id number] IV Last administered on 04/06/17 03:02; Admin Dose 60 MLS/HR; Start 04/06/17 at 03:00 MANE MATA NP Apr 06, 2017 10:37
--- NOTE | 2017-04-06 10:44 | CONS ---
Date/Time of Note Date/Time of Note DATE: 04/06/17 TIME: 10:42 Assessment/Plan Assessment/Plan Chief Complaint/Hosp Course 62-year-old female who was brought by her surgeon for elective sigmoid resection with possible takedown of colostomy, cystoscopy with ureteral stent/ catheter placement. 1.History of diverticular abscess/diverticulitis and rectovaginal fistula. -Status post Open sigmoidectomy WITH Cystoscopy and insertion of bilateral ureteral catheters. POD #2 -Post op anticoagulation, pain control and abx per surgery. 2. Post operative Intractable nausea/vomiting. -Surgery on board- diet has been advanced -However patient with poor tolerence. -Recommend adding Reglan around the clock x 24hrs. Continue PRN zofran with the hope that this regimen can help her advance to solids. -DC PO Pepcid and change to IV PPIs. -Continue IVFluids 3. DMII. Patient with hypoglycemic events-this is secondary to poor intake while receiving insulin combined with continuation of Q4H ISS although patient has been started on diet (should have been changed to AC & HS by nursing staff ) . -At this time, we recommend holding all insulin and continuation of dextrose containing IVfs until she tolerates solids to maintain euglycemia. -Once she tolerates solids, Plan is to resume min dose Lantus 12 units HS with ISS once her blood sugar remained stable over next 24hrs without hypoglycemic events and titrate by 15-20% as needed. -Carbohydrate controlled diet 4.Essential hypertension. Stable. -Continue home medications 5. Hypercholesterolemia. -Continue statin 6. Arthritis. -Continue home medications. 7. Hypothyroidism. -Patient with low TSH and high end of T4 levels. Continue adjusted dose of Synthroid 100 mcg. -Needs outpatient repeat labs in 6 weeks 8.History of exploratory laparotomy, I and D of pelvic abscess and diverting colostomy. 9.Leukocytosis, likely reactive . Urine culture negative. Will monitor. -on cipro+flagyl per surgery. 10. Hypokalemia 2/2 GI loss. Continue repletion and monitor.Add K to IV until she tolerates diet. 11. Tobacco use. -Cessation advised. DVT prophylaxis: Per surgery PUD prophylaxis: Pepcid. Plan: At this time, per medicine standpoint, we recommend continuation of systemic hydration until patient tolerates diet. Patient needs electrolyte monitoring 2/2 GI loss and poor intake. Patient needs close blood sugar monitoring. Encourage incentive spirometry, and ambulation. Continue post op management. Patient was seen in collaboration with Dr. Zhou. Problems: Consultation Date/Type/Reason Admit Date/Time Apr 03, 2017 at 10:32 Initial Consult Date 04/03/17 Type of Consultation: Internal medicine Referring Provider: MOY BACON M.D. 24 HR Interval Summary Free Text/Dictation Patient with ongoing nausea/vomiting.She is not tolerating diet advancement.He blood sugar has been very labile with lowest being 69,symptomatic requiring D50 multiple times overnight. Currently on continuous IVFs with a more stable BS pattern. Exam/Review of Systems Vital Signs Vitals Vital Signs Date Time Temp Pulse Resp B/P Pulse Ox O2 Delivery O2 Flow Rate FiO2 04/06/17 08:15 Nasal Cannula 2.0 04/06/17 07:53 98.3 84 20 137/60 98 04/04/17 15:02 21 Intake and Output 04/05/17 04/05/17 04/06/17 15:00 23:00 07:00 Intake Total 200 ml 1090 ml 1080 ml Output Total 300 ml 1250 ml Balance 200 ml 790 ml -170 ml Exam General: Well developed,adequately built, not in any acute distress . HEENT: Normocephalic, Atraumatic, No laceration or hematoma; Eyes: PEERL, Conjunctiva clear, Anicteric sclera Neck: Supple without any lymphadenopathy, nontender, no JVD, no carotid bruits, trachea midline, no thyromegaly Cardiac: S1, S2 auscultated, regular rhythm and rate, no mumurs or gallop Pulmonary: Normal respiratory effort. Chest clear to auscultation bilaterally, no adventitious breath sounds GI: Left upper quadrant colostomy bag draining stool. +Nausea/vomiting. Stoma intact. Otherwise, abdomen normal to inspection. Soft, non tender, non- distended, no masses, no rebound tenderness or guarding. Bowel sounds active on all four quadrants Genitourinary: Deferred Extremities: No cyanosis, clubbing, or edema. Pulses [2+] bilaterally. Full ROM on all four extremities. No focal weakness appreciated. Neurologic: Alert to person, place, time, and situation. Affect appropriate, intact sensation. Skin: Clean,dry, and intact. No ecchymosis, no rashes, or lesions Results Result Diagram: 04/06/17 0435 04/06/17 0435 Results 24 hrs Laboratory Tests Test 04/05/17 12:54 04/05/17 13:10 04/05/17 13:24 04/05/17 14:24 Bedside Glucose 44 *L 154 123 101 Test 04/05/17 18:15 04/05/17 20:29 04/05/17 20:48 04/05/17 20:59 Bedside Glucose 96 68 L 71 68 L Test 04/05/17 21:27 04/05/17 21:57 04/05/17 22:18 04/05/17 22:41 Bedside Glucose 66 L 78 70 68 L Test 04/05/17 23:06 04/05/17 23:28 04/06/17 01:32 04/06/17 02:21 Bedside Glucose 138 103 82 79 Test 04/06/17 02:41 04/06/17 02:59 04/06/17 03:25 04/06/17 04:35 Bedside Glucose 76 210 147 White Blood Count 8.8 # Red Blood Count 3.40 L Hemoglobin 9.6 L Hematocrit 32.0 L Mean Corpuscular Volume 94.1 Mean Corpuscular Hemoglobin 28.2 L Mean Corpuscular Hemoglobin Concent 30.0 L Red Cell Distribution Width 15.0 H Platelet Count 374 # Mean Platelet Volume 8.5 Neutrophils % 89.6 H Lymphocytes % 5.4 L Monocytes % 4.1 Eosinophils % 0.3 Basophils % 0.1 Nucleated Red Blood Cells % 0.0 Neutrophils # 7.9 H Lymphocytes # 0.5 L Monocytes # 0.4 Eosinophils # 0.0 Basophils # 0.0 Nucleated Red Blood Cells # 0.0 Sodium Level 140 Potassium Level 3.3 L Chloride Level 105 Carbon Dioxide Level 31 Anion Gap 7 L Blood Urea Nitrogen 6 L Creatinine 0.42 L Glucose Level 136 # Calcium Level 9.6 Magnesium Level 2.1 Test 04/06/17 06:59 04/06/17 09:05 Bedside Glucose 119 137 Medications Medications Current Medications Atenolol (Tenormin) 25 mg DAILY PO Last administered on 04/05/17t 08:24; Admin Dose 25 MG; Start 04/04/17 at 09:00 Cyclobenzaprine HCl (Flexeril) 5 mg Q6H PRN PO PAIN; Start 04/03/17 at 15:30 Duloxetine HCl (Cymbalta) 60 mg BID PO Last administered on 04/05/17 20:56; Admin Dose 60 MG; Start 04/03/17 at 21:00 Ergocalciferol (Drisdol) 50,000 unit QMONDAY PO ; Start 04/03/17 at 17:00 Magnesium Oxide (Mag-Ox 400) 400 mg BID PO Last administered on 04/05/17 20:57 ; Admin Dose 400 MG; Start 04/03/17 at 21:00 Paroxetine HCl (Paxil) 40 mg DAILY PO Last administered on 04/05/17 08:25; Admin Dose 40 MG; Start 04/04/17 at 09:00 Calcium Carbonate (Tums) 1,000 mg Q4H PRN PO UPSET STOMACH; Start 04/03/17 at 17:30 Atorvastatin Calcium (Lipitor) 10 mg DAILY@21 PO Last administered on 20:57; Admin Dose 10 MG; Start 04/03/17 at 21:00 Famotidine (Pepcid) 20 mg Q12 PO Last administered on 04/05/17 20:57; Admin Dose 20 MG; Start 04/03/17 at 21:00 Hydralazine HCl (Apresoline) 10 mg Q6H PRN IV SBP>160; Start 04/03/17 at 16:00 Miscellaneous Information 1 ea NOTE XX ; Start 04/03/17 at 16:00 Glucose (Glutose) 15 gm Q15M PRN PO DECREASED GLUCOSE; Start 04/03/17 at 16:00 Glucose (Glutose) 22.5 gm Q15M PRN PO DECREASED GLUCOSE; Start 04/03/17 at 16: 00 Dextrose (D50w Syringe) 25 ml Q15M PRN IV DECREASED GLUCOSE Last administered on 04/06/17 02:53; Admin Dose 25 ML; Start 04/03/17 at 16:00 Dextrose (D50w Syringe) 50 ml Q15M PRN IV DECREASED GLUCOSE; Start 04/03/17 at 16:00 Glucagon (Glucagen) 1 mg Q15M PRN IM DECREASED GLUCOSE; Start 04/03/17 at 16:00 Glucose (Glutose) 15 gm Q15M PRN BUCCAL DECREASED GLUCOSE; Start 04/03/17 at 16 :00 Ketorolac Tromethamine (Toradol) 15 mg Q6H PRN IV PAIN Last administered on 02:25; Admin Dose 15 MG; Start 04/03/17 at 17:30; Stop 04/06/17 at 17:29 Ondansetron HCl (Zofran Inj) 4 mg Q6H PRN IV NAUSEA AND/OR VOMITING Last administered on 04/06/17 09:03; Admin Dose 4 MG; Start 04/03/17 at 17:30 Phenol (Cepastat Lozenge) 1 lozenge PRN PRN MT SORE THROAT; Start 04/03/17 at 17:30 Diagnostic Test (Pha) (Accu-Chek) 1 ea 02 XX Last administered on 04/04/17 01: 39; Admin Dose 1 EA; Start 04/04/17 at 02:00 Prednisone (Prednisone) 5 mg DAILY PO Last administered on 04/05/17 08:26; Admin Dose 5 MG; Start 04/04/17 at 09:00 Enoxaparin Sodium (Lovenox) 30 mg DAILY SC Last administered on 04/06/17 09:28 ; Admin Dose 30 MG; Start 04/05/17 at 09:00 Levothyroxine Sodium (Synthroid) 100 mcg DAILY@06 PO Last administered on 07:01; Admin Dose 100 MCG; Start 04/05/17 at 06:00 Acetaminophen/ Hydrocodone Bitart ([place] (5/325)) Give for pain Q4H PRN PO PAIN LEVEL 1-3 Last administered on 04/05/17 20:57; Admin Dose 1 TAB; Start at 09:30 Hydromorphone HCl (Dilaudid) 0.5 mg Q4H PRN IV PAIN Last administered on 07:54; Admin Dose 0.5 MG; Start 04/05/17 at 09:30 Insulin Glargine (Lantus) 20 unit QAM SC ; Start 04/06/17 at 09:00 Acetaminophen/ Hydrocodone Bitart 2 tab 2 tab Q4H PRN PO PAIN Last administered on 04/06/17 01:57; Admin Dose 2 TAB; Start 04/06/17 at 01:25 Dextrose/Sodium Chloride (D5-1/2ns) 1,000 ml @ 60 mls/hr [id number] IV Last administered on 04/06/17t 03:02; Admin Dose 60 MLS/HR; Start 04/06/17 at 03:00 MANE MATA NP Apr 06, 2017 10:44
[2017-04-06] MEDS ORDERED: POTASSIUM CHLORIDE 250 ML IVPB ONE (11:30)
[2017-04-06] MEDS: METOCLOPRAMIDE 10 MG INJ IV SCH ×3 (11:39→23:23)
[2017-04-06] MEDS: D5W-0.45 NACL + KCL 20 MEQ 1,000 ML IV SCH (11:47)
[2017-04-06 14:00] VITALS: BP 158/75; RESP 20
[2017-04-06] MEDS ORDERED: POTASSIUM CHLORIDE (SR) 20 MEQ TAB PO STA (14:37)
[2017-04-06] MEDS: PANTOPRAZOLE 40 MG INJ IV SCH (17:11)
[2017-04-06] MEDS: CALCIUM CARBONATE 500 MG CHEW TAB PO PRN (18:32)
[2017-04-06 20:26] VITALS: BP 149/74; RESP 20
[2017-04-06] MEDS: ATORVASTATIN 10 MG TAB PO SCH (21:00)
[2017-04-07] MEDS: HYDROmorphONE 1 MG/ML SYG IV PRN ×6 (00:09→20:08)
[2017-04-07] MEDS: ALBUTEROL/IPRATROPIUM (NEB) 3 ML AMP HHN SCH ×4 (01:28→21:40)
[2017-04-07] MEDS: ACCU-CHEK XX SCH (02:00)
[2017-04-07 02:40] VITALS: BP 138/69; RESP 20
[2017-04-07] MEDS: D5W-0.45 NACL + KCL 20 MEQ 1,000 ML IV SCH ×3 (04:11→20:07)
[2017-04-07] MEDS: ONDANSETRON 4 MG INJ IV PRN ×2 (04:12→14:49)
[2017-04-07 05:14] LABS: BASOPHILS % 0.3 % (0.0-2.0); EOSINOPHILS % 0.5 % (0.0-7.0); HEMATOCRIT 31.4 % (37.0-47.0); HEMOGLOBIN 9.5 g/dl (12.0-16.0); LYMPHOCYTES # 0.9 10^3/ul (0.8-2.9); LYMPHOCYTES % 10.8 % (15.0-51.0); MEAN CORPUSCULAR HEMOGLOBIN 28.4 pg (29.0-33.0); MEAN CORPUSCULAR HGB CONC 30.3 g/dl (32.0-37.0); MEAN CORPUSCULAR VOLUME 93.7 fl (82.0-101.0); MEAN PLATELET VOLUME 8.5 fl (7.4-10.4); MONOCYTE # 0.6 10^3/ul (0.3-0.9); MONOCYTES % 7.6 % (0.0-11.0); NEUTROPHIL # 6.4 10^3/ul (1.6-7.5); NEUTROPHILS % 80.3 % (39.0-77.0); PLATELET COUNT 410 10^3/UL (140-415); RED BLOOD COUNT 3.35 10^6/ul (4.20-5.40); RED CELL DISTRIBUTION WIDTH 14.6 % (11.5-14.5)
[2017-04-07] MEDS: PANTOPRAZOLE 40 MG INJ IV SCH ×2 (05:28→17:22)
[2017-04-07] MEDS: METOCLOPRAMIDE 10 MG INJ IV SCH (05:28)
[2017-04-07 05:45] LABS: CALCIUM 9.4 mg/dl (8.4-10.2); CREATININE 0.42 mg/dl (0.44-1.00)
[2017-04-07] MEDS: LEVOTHYROXINE 100 MCG TAB PO SCH (06:00)
[2017-04-07] MEDS: GABAPENTIN 100 MG CAP PO SCH (07:50)
--- NOTE | 2017-04-07 07:56 | RADRPT ---
PROCEDURE: XR Chest. CLINICAL INDICATION: NG tube placement TECHNIQUE: Single portable view of the chest was obtained. COMPARISON: 01/03/2017 FINDINGS: Enteric tube tip and side port over left upper abdomen. Sternotomy wires. Stable cardiomediastinal s ilhouette. Bilateral perihilar and basilar airspace opacities. Probable small left pleural effusion. No evidence of pneumothorax. IMPRESSION: Enteric tube tip over the left upper abdomen. Bilateral perihilar and basilar airspace opacities may represent pulmonary edema, atelectasis or pne umonia. Probable small left pleural effusion. RPTAT:AAJJ Physician Juan M Date Time Electronically viewed and signed by Physician Juan M on 04/07/2017 07:55 /
--- NOTE | 2017-04-07 07:58 | RADRPT ---
PROCEDURE: XR Abdomen. CLINICAL INDICATION: NG tube placement. Postop. TECHNIQUE: AP abdomen x-ray. COMPARISON: Chest 04/07/2017 and abdomen 10/23/2016 FINDINGS: Enteric tube tip over the gastric bubble. Stomach is distended with air. Postcholecystectomy clips. Skin fernando over the lower mid abdomen and pelvis. Dilated loops of air-filled small bowel measurin g 4.7 cm in diameter. Degenerative changes of the spine. IMPRESSION: 1. Enteric tube tip over the gastric bubble. 2. Dilated loops of air-filled small bowel representing ileus or small bowel obstruction. RPTAT:AAJJ Physician Juan M Date Time Electronically viewed and signed by Physician Juan M on 04/07/2017 07:57 /
[2017-04-07] MEDS: DULOXETINE 30 MG CAP DR PO SCH ×2 (08:39→20:29)
[2017-04-07] MEDS: MAGNESIUM OXIDE 400 MG TAB PO SCH ×2 (08:39→20:30)
[2017-04-07] MEDS: predniSONE 5 MG TAB PO SCH (08:40)
[2017-04-07] MEDS: INSULIN ASPART [NOVOLOG] 3 ML PEN SC SCH ×4 (08:50→21:07)
--- NOTE | 2017-04-07 08:50 | PN ---
Date/Time of Note Date/Time of Note DATE: 04/07/17 TIME: 08:47 Assessment/Plan VTE Prophylaxis VTE Prophylaxis Intervention: ambulation, LMWH, SCD's Lines/Catheters IV Catheter Type (from Nrs): Peripheral IV Urinary Cath still in place: No Assessment/Plan Chief Complaint/Hosp Course 62YO Woman h/o diverticulitis, s/p diverting loop colostomy, now s/p open sigmoid resection POD4. Overnight had bililous emesis, NGT placed and now ~ 1200ml output. Pt feels much better. Stoma still functioning - probable ileus. Will bolus to replace losses (pt is mildly tachy but denies CP/SOB), and increase IVF to maintenance. Encourage OOB. Ask medicine to do IV meds now that pt is NPO. Will watch and wait on NGT output. Otherwise, labs OK, denies CP/SOB/F/C. Wound looks good. Problems: Subjective 24 Hr Interval Summary Constitutional: improved (abdominal pain improved with NGT) Respiratory: no complaints Cardiovascular: no complaints Gastrointestinal: pain (pain improved with NGT) Exam/Review of Systems Vital Signs Vitals Vital Signs Date Time Temp Pulse Resp B/P Pulse Ox O2 Delivery O2 Flow Rate FiO2 04/07/17 02:40 98.6 113 20 138/69 97 04/07/17 01:29 Nasal Cannula 3.0 04/04/17 15:02 21 Intake and Output 04/06/17 04/06/17 04/07/17 15:00 23:00 07:00 Intake Total 31 ml 900 ml 750 ml Output Total 800 ml 1600 ml Balance 31 ml 100 ml -850 ml Exam Constitutional: alert, oriented Cardiovascular: regular rate and rhythm Gastrointestinal: soft (appropriately TTP, stoma pink with stool and gas in bag , wound C/D/I) Results Result Diagram: 04/07/17 0433 04/07/17 0430 Results 24 hrs Laboratory Tests Test 04/06/17 09:05 04/06/17 13:04 04/06/17 18:02 04/06/17 23:22 Bedside Glucose 137 158 171 215 Test 04/07/17 04:30 04/07/17 04:33 04/07/17 08:07 Sodium Level 141 Potassium Level 4.0 Chloride Level 106 Carbon Dioxide Level 29 Anion Gap 10 Blood Urea Nitrogen 9 Creatinine 0.42 L Glucose Level 213 Calcium Level 9.4 White Blood Count 8.0 Red Blood Count 3.35 L Hemoglobin 9.5 L Hematocrit 31.4 L Mean Corpuscular Volume 93.7 Mean Corpuscular Hemoglobin 28.4 L Mean Corpuscular Hemoglobin Concent 30.3 L Red Cell Distribution Width 14.6 H Platelet Count 410 Mean Platelet Volume 8.5 Neutrophils % 80.3 H Lymphocytes % 10.8 L Monocytes % 7.6 Eosinophils % 0.5 Basophils % 0.3 Nucleated Red Blood Cells % 0.0 Neutrophils # 6.4 Lymphocytes # 0.9 Monocytes # 0.6 Eosinophils # 0.0 Basophils # 0.0 Nucleated Red Blood Cells # 0.0 Bedside Glucose 209 Medications Medications Current Medications Atenolol (Tenormin) 25 mg DAILY PO Last administered on 04/05/17 08:24; Admin Dose 25 MG; Start 04/04/17 at 09:00 Cyclobenzaprine HCl (Flexeril) 5 mg Q6H PRN PO PAIN; Start 04/03/17 at 15:30 Duloxetine HCl (Cymbalta) 60 mg BID PO Last administered on 04/05/17 20:56; Admin Dose 60 MG; Start 04/03/17 at 21:00 Ergocalciferol (Drisdol) 50,000 unit QMONDAY PO ; Start 04/03/17 at 17:00 Magnesium Oxide (Mag-Ox 400) 400 mg BID PO Last administered on 04/05/17 20:57 ; Admin Dose 400 MG; Start 04/03/17 at 21:00 Paroxetine HCl (Paxil) 40 mg DAILY PO Last administered on 04/05/17 08:25; Admin Dose 40 MG; Start 04/04/17 at 09:00 Calcium Carbonate (Tums) 1,000 mg Q4H PRN PO UPSET STOMACH Last administered on 04/06/17 18:32; Admin Dose 1,000 MG; Start 04/03/17 at 17:30 Atorvastatin Calcium (Lipitor) 10 mg DAILY@21 PO Last administered on 20:57; Admin Dose 10 MG; Start 04/03/17 at 21:00 Hydralazine HCl (Apresoline) 10 mg Q6H PRN IV SBP>160; Start 04/03/17 at 16:00 Miscellaneous Information 1 ea NOTE XX ; Start 04/03/17 at 16:00 Glucose (Glutose) 15 gm Q15M PRN PO DECREASED GLUCOSE; Start 04/03/17 at 16:00 Glucose (Glutose) 22.5 gm Q15M PRN PO DECREASED GLUCOSE; Start 04/03/17 at 16: 00 Dextrose (D50w Syringe) 25 ml Q15M PRN IV DECREASED GLUCOSE Last administered on 04/06/17 02:53; Admin Dose 25 ML; Start 04/03/17 at 16:00 Dextrose (D50w Syringe) 50 ml Q15M PRN IV DECREASED GLUCOSE; Start 04/03/17 at 16:00 Glucagon (Glucagen) 1 mg Q15M PRN IM DECREASED GLUCOSE; Start 04/03/17 at 16:00 Glucose (Glutose) 15 gm Q15M PRN BUCCAL DECREASED GLUCOSE; Start 04/03/17 at 16 :00 Ondansetron HCl (Zofran Inj) 4 mg Q6H PRN IV NAUSEA AND/OR VOMITING Last administered on 04/07/17 04:12; Admin Dose 4 MG; Start 04/03/17 at 17:30 Phenol (Cepastat Lozenge) 1 lozenge PRN PRN MT SORE THROAT; Start 04/03/17 at 17:30 Diagnostic Test (Pha) (Accu-Chek) 1 ea 02 XX Last administered on 04/04/17 01: 39; Admin Dose 1 EA; Start 04/04/17 at 02:00 Prednisone (Prednisone) 5 mg DAILY PO Last administered on 04/05/17 08:26; Admin Dose 5 MG; Start 04/04/17 at 09:00 Enoxaparin Sodium (Lovenox) 30 mg DAILY SC Last administered on 04/06/17 09:28 ; Admin Dose 30 MG; Start 04/05/17 at 09:00 Levothyroxine Sodium (Synthroid) 100 mcg DAILY@06 PO Last administered on 07:01; Admin Dose 100 MCG; Start 04/05/17 at 06:00 Acetaminophen/ Hydrocodone Bitart ([place] (5/325)) Give for pain Q4H PRN PO PAIN LEVEL 1-3 Last administered on 04/05/17 20:57; Admin Dose 1 TAB; Start 10 /4/17 at 09:30 Hydromorphone HCl (Dilaudid) 0.5 mg Q4H PRN IV PAIN Last administered on 19:57; Admin Dose 0.5 MG; Start 04/05/17 at 09:30 Acetaminophen/ Hydrocodone Bitart ([place] (5/325)) 2 tab Q4H PRN PO PAIN Last administered on 04/06/17 14:36; Admin Dose 2 TAB; Start 04/06/17 at 01:25 Insulin Glargine (Lantus) 12 unit QHS SC ; Start 04/06/17 at 21:00; Status Future Hold Pantoprazole 40 mg 40 mg BID@06,18 IV Last administered on 04/07/17 05:28; Admin Dose 40 MG; Start 04/06/17 at 18:00 Potassium Chloride/Dextrose/ Sod Cl (D5-1/2ns + KCl 20 Meq) 1,000 ml @ 60 mls/ hr [id number] IV Last administered on 04/07/17 04:11; Admin Dose 60 MLS/HR; Start 04/06/17 at 10:32 Hydromorphone HCl (Dilaudid) 1 mg Q4H PRN IV PAIN Last administered on 08:03; Admin Dose 1 MG; Start 04/07/17 at 00:00 MOY BACON M.D. Apr 07, 2017 08:50
[2017-04-07] MEDS ORDERED: INSULIN GLARGINE [LANtus] 3 ML PEN SC SCH (09:00)
[2017-04-07] MEDS ORDERED: KCL IV SCH (09:00)
[2017-04-07] MEDS: ATENOLOL 25 MG TAB PO SCH (09:00)
[2017-04-07] MEDS ORDERED: NS IV SCH (09:00)
[2017-04-07] MEDS: PAROXETINE 20 MG TAB PO SCH (09:00)
[2017-04-07 09:10] VITALS: BP 146/68; PULSE 106; RESP 19
[2017-04-07] MEDS ORDERED: SOD CHLORIDE 0.9% 500 ML IV ONE ×2 (09:30→19:30)
[2017-04-07] MEDS: ENOXAPARIN 30 MG/0.3 ML SYG SC SCH (09:51)
[2017-04-07] MEDS ORDERED: hydrALAzine 20 MG INJ IV PRN (14:00)
--- NOTE | 2017-04-07 15:36 | PN ---
Date/Time of Note Date/Time of Note DATE: 04/07/17 TIME: 15:32 Assessment/Plan VTE Prophylaxis VTE Prophylaxis Intervention: LMWH Lines/Catheters IV Catheter Type (from [facility]): Peripheral IV Urinary Cath still in place: No Assessment/Plan Assessment/Plan 1.History of diverticular abscess/diverticulitis and rectovaginal fistula. -Status post Open sigmoidectomy WITH Cystoscopy and insertion of bilateral ureteral catheters. POD #3 2. Post operative Intractable nausea/vomiting. - NG tube placed, IV reglan 3. DMII. - pt is NPO now with NG tube in place, will give D51/2NS with KCl 4.Essential hypertension. Stable. -Continue home medications 5. Hypercholesterolemia. -Continue statin 6. Arthritis. -Continue home medications. 7. Hypothyroidism. -Patient with low TSH and high end of T4 levels. Continue adjusted dose of Synthroid 100 mcg. -Needs outpatient repeat labs in 6 weeks 8.History of exploratory laparotomy, I and D of pelvic abscess and diverting colostomy. 9.Leukocytosis, likely reactive . Urine culture negative. Will monitor. -on cipro+flagyl per surgery. 10. Hypokalemia 2/2 GI loss. Continue repletion and monitor.Add K to IV until she tolerates diet.KCL replacement 11. Tobacco use. -Cessation advised. DVT prophylaxis: Lovenox PUD prophylaxis: Pepcid. Subjective 24 Hr Interval Summary Free Text/Dictation pt still has NG Tube placed for possible ileus , c/o abdominal pain, still NPO Gastrointestinal: nausea, pain Genitourinary: flank pain Exam/Review of Systems Vital Signs Vitals Vital Signs Date Time Temp Pulse Resp B/P Pulse Ox O2 Delivery O2 Flow Rate FiO2 04/07/17 15:01 110 20 93 21 04/07/17 09:30 Nasal Cannula 2.0 04/07/17 09:10 97.7 146/68 Intake and Output 04/06/17 04/06/17 04/07/17 15:00 23:00 07:00 Intake Total 31 ml 900 ml 750 ml Output Total 800 ml 1600 ml Balance 31 ml 100 ml -850 ml Exam Constitutional: alert Psych: no complaints Head: normocephalic Eyes: nl conjunctiva Neck: non-tender, supple Respiratory: clear to auscultation, diminished breath sounds, normal air movement Cardiovascular: nl pulses, regular rate and rhythm Gastrointestinal: soft, tender (TTP to left side, no rebound. no guarding ) Musculoskeletal: nl extremities to inspection, nl gait and stance Extremities: normal pulses Neurological: HEEL ED[employer] MACHINE II-XII intact, nl mental status, nl speech, nl strength Results Result Diagram: 04/07/17 0433 04/07/17 0430 Results 24 hrs Laboratory Tests Test 04/06/17 18:02 04/06/17 23:22 04/07/17 04:30 04/07/17 04:33 Bedside Glucose 171 215 Sodium Level 141 Potassium Level 4.0 Chloride Level 106 Carbon Dioxide Level 29 Anion Gap 10 Blood Urea Nitrogen 9 Creatinine 0.42 L Glucose Level 213 Calcium Level 9.4 White Blood Count 8.0 Red Blood Count 3.35 L Hemoglobin 9.5 L Hematocrit 31.4 L Mean Corpuscular Volume 93.7 Mean Corpuscular Hemoglobin 28.4 L Mean Corpuscular Hemoglobin Concent 30.3 L Red Cell Distribution Width 14.6 H Platelet Count 410 Mean Platelet Volume 8.5 Neutrophils % 80.3 H Lymphocytes % 10.8 L Monocytes % 7.6 Eosinophils % 0.5 Basophils % 0.3 Nucleated Red Blood Cells % 0.0 Neutrophils # 6.4 Lymphocytes # 0.9 Monocytes # 0.6 Eosinophils # 0.0 Basophils # 0.0 Nucleated Red Blood Cells # 0.0 Test 04/07/17 08:07 04/07/17 11:48 04/07/17 14:42 Bedside Glucose 209 145 213 Medications Medications Current Medications Atenolol (Tenormin) 25 mg DAILY PO Last administered on 04/05/17 08:24; Admin Dose 25 MG; Start 04/04/17 at 09:00 Cyclobenzaprine HCl (Flexeril) 5 mg Q6H PRN PO PAIN; Start 04/03/17 at 15:30 Duloxetine HCl (Cymbalta) 60 mg BID PO Last administered on 04/05/17 20:56; Admin Dose 60 MG; Start 04/03/17 at 21:00 Ergocalciferol (Drisdol) 50,000 unit QMONDAY PO ; Start 04/03/17 at 17:00 Magnesium Oxide (Mag-Ox 400) 400 mg BID PO Last administered on 04/05/17 20:57 ; Admin Dose 400 MG; Start 04/03/17 at 21:00 Paroxetine HCl (Paxil) 40 mg DAILY PO Last administered on 04/05/17 08:25; Admin Dose 40 MG; Start 04/04/17 at 09:00 Calcium Carbonate (Tums) 1,000 mg Q4H PRN PO UPSET STOMACH Last administered on 04/06/17 18:32; Admin Dose 1,000 MG; Start 04/03/17 at 17:30 Atorvastatin Calcium (Lipitor) 10 mg DAILY@21 PO Last administered on 20:57; Admin Dose 10 MG; Start 04/03/17 at 21:00 Miscellaneous Information 1 ea NOTE XX ; Start 04/03/17 at 16:00 Glucose (Glutose) 15 gm Q15M PRN PO DECREASED GLUCOSE; Start 04/03/17 at 16:00 Glucose (Glutose) 22.5 gm Q15M PRN PO DECREASED GLUCOSE; Start 04/03/17 at 16: 00 Dextrose (D50w Syringe) 25 ml Q15M PRN IV DECREASED GLUCOSE Last administered on 04/06/17 02:53; Admin Dose 25 ML; Start 04/03/17 at 16:00 Dextrose (D50w Syringe) 50 ml Q15M PRN IV DECREASED GLUCOSE; Start 04/03/17 at 16:00 Glucagon (Glucagen) 1 mg Q15M PRN IM DECREASED GLUCOSE; Start 04/03/17 at 16:00 Glucose (Glutose) 15 gm Q15M PRN BUCCAL DECREASED GLUCOSE; Start 04/03/17 at 16 :00 Ondansetron HCl (Zofran Inj) 4 mg Q6H PRN IV NAUSEA AND/OR VOMITING Last administered on 04/07/17 14:49; Admin Dose 4 MG; Start 04/03/17 at 17:30 Phenol (Cepastat Lozenge) 1 lozenge PRN PRN MT SORE THROAT; Start 04/03/17 at 17:30 Prednisone (Prednisone) 5 mg DAILY PO Last administered on 04/05/17 08:26; Admin Dose 5 MG; Start 04/04/17 at 09:00 Enoxaparin Sodium (Lovenox) 30 mg DAILY SC Last administered on 04/07/17 09:51 ; Admin Dose 30 MG; Start 04/05/17 at 09:00 Levothyroxine Sodium (Synthroid) 100 mcg DAILY@06 PO Last administered on 07:01; Admin Dose 100 MCG; Start 04/05/17 at 06:00 Acetaminophen/ Hydrocodone Bitart ([place] (5/325)) Give for pain Q4H PRN PO PAIN LEVEL 1-3 Last administered on 04/05/17 20:57; Admin Dose 1 TAB; Start at 09:30 Hydromorphone HCl (Dilaudid) 0.5 mg Q4H PRN IV PAIN Last administered on 19:57; Admin Dose 0.5 MG; Start 04/05/17 at 09:30 Acetaminophen/ Hydrocodone Bitart ([place] (5/325)) 2 tab Q4H PRN PO PAIN Last administered on 04/06/17 14:36; Admin Dose 2 TAB; Start 04/06/17 at 01:25 Insulin Glargine (Lantus) 12 unit QHS SC ; Start 04/06/17 at 21:00; Status Future Hold Pantoprazole 40 mg 40 mg BID@06,18 IV Last administered on 04/07/17 05:28; Admin Dose 40 MG; Start 04/06/17 at 18:00 Potassium Chloride/Dextrose/ Sod Cl (D5-1/2ns + KCl 20 Meq) 1,000 ml @ 100 mls/ hr Q10H IV Last administered on 04/07/17 04:11; Admin Dose 60 MLS/HR; Start 04/06/17 at 10:32 Hydromorphone HCl 1 mg 1 mg Q4H PRN IV PAIN Last administered on 04/07/17 12: 08; Admin Dose 1 MG; Start 04/07/17 at 00:00 Potassium Chloride/Sodium Chloride (NS-KCl 20 Meq) 500 ml @ 0 mls/hr Q0M IV ; Start 04/07/17 at 09:00; Stop 04/08/17 at 08:59 Hydralazine HCl (Apresoline) 10 mg Q4H PRN IV SBP>160; Start 04/07/17 at 14:00 Insulin Aspart (Novolog Insulin Pen) (Adult SC Insulin - Mild Algorithm)... Q4 SC ; Start 04/07/17 at 17:00 UGO BRYANT MD Apr 07, 2017 15:36
[2017-04-07 20:00] VITALS: BP 149/69; RESP 22
[2017-04-07] MEDS: ATORVASTATIN 10 MG TAB PO SCH (20:29)
[2017-04-07] MEDS: KETOROLAC 15 MG INJ IV PRN (21:51)
[2017-04-08] MEDS: INSULIN ASPART [NOVOLOG] 3 ML PEN SC SCH ×6 (01:03→20:58)
[2017-04-08] MEDS: D5W-0.45 NACL + KCL 20 MEQ 1,000 ML IV SCH ×4 (01:26→20:53)
[2017-04-08 02:00] VITALS: BP 138/60; RESP 18
[2017-04-08] MEDS: ALBUTEROL/IPRATROPIUM (NEB) 3 ML AMP HHN SCH ×4 (02:28→20:13)
[2017-04-08] MEDS: HYDROmorphONE 1 MG/ML SYG IV PRN ×6 (03:55→20:53)
[2017-04-08] MEDS: PANTOPRAZOLE 40 MG INJ IV SCH ×2 (05:22→17:48)
[2017-04-08 05:31] LABS: BASOPHILS % 0.4 % (0.0-2.0); EOSINOPHILS # 0.1 10^3/ul (0.0-0.5); EOSINOPHILS % 0.7 % (0.0-7.0); HEMATOCRIT 29.5 % (37.0-47.0); HEMOGLOBIN 8.9 g/dl (12.0-16.0); LYMPHOCYTES # 1.2 10^3/ul (0.8-2.9); LYMPHOCYTES % 15.3 % (15.0-51.0); MEAN CORPUSCULAR HEMOGLOBIN 28.7 pg (29.0-33.0); MEAN CORPUSCULAR HGB CONC 30.2 g/dl (32.0-37.0); MEAN CORPUSCULAR VOLUME 95.2 fl (82.0-101.0); MEAN PLATELET VOLUME 8.2 fl (7.4-10.4); MONOCYTE # 0.7 10^3/ul (0.3-0.9); MONOCYTES % 8.6 % (0.0-11.0); NEUTROPHIL # 5.6 10^3/ul (1.6-7.5); NEUTROPHILS % 74.6 % (39.0-77.0); PLATELET COUNT 385 10^3/UL (140-415); RED CELL DISTRIBUTION WIDTH 14.5 % (11.5-14.5); WHITE BLOOD COUNT 7.6 10^3/ul (4.8-10.8)
[2017-04-08 05:54] LABS: ALBUMIN 2.8 g/dl (3.3-4.9); ALBUMIN/GLOBULIN RATIO 0.93; BILIRUBIN,INDIRECT 0.1 mg/dl (0-1.1); BILIRUBIN,TOTAL 0.1 mg/dl (0.2-1.3); CALCIUM 8.6 mg/dl (8.4-10.2); CREATININE 0.45 mg/dl (0.44-1.00); POTASSIUM 4.1 mmol/L (3.5-5.1); TOTAL PROTEIN 5.8 g/dl (6.1-8.1)
[2017-04-08] MEDS: LEVOTHYROXINE 100 MCG TAB PO SCH (06:00)
[2017-04-08 06:01] LABS: INR 1.15; PARTIAL THROMBOPLASTIN TIME 33.9 Sec (25.0-35.0); PROTIME 14.7 Sec (12.2-14.2); PT RATIO 1.1
[2017-04-08] MEDS: MAGNESIUM OXIDE 400 MG TAB PO SCH ×2 (07:45→19:41)
[2017-04-08] MEDS: GABAPENTIN 100 MG CAP PO SCH (07:45)
[2017-04-08] MEDS: predniSONE 5 MG TAB PO SCH (07:45)
[2017-04-08] MEDS: DULOXETINE 30 MG CAP DR PO SCH ×2 (07:45→19:41)
[2017-04-08] MEDS: PAROXETINE 20 MG TAB PO SCH (07:45)
[2017-04-08] MEDS: ATENOLOL 25 MG TAB PO SCH (07:45)
[2017-04-08 08:49] VITALS: BP 140/66; RESP 18
[2017-04-08] MEDS ORDERED: KCL IV SCH (09:00)
[2017-04-08] MEDS ORDERED: NS IV SCH (09:00)
[2017-04-08] MEDS: ENOXAPARIN 30 MG/0.3 ML SYG SC SCH (09:16)
--- NOTE | 2017-04-08 11:43 | PN ---
Date/Time of Note Date/Time of Note DATE: 04/08/17 TIME: 11:39 Assessment/Plan VTE Prophylaxis VTE Prophylaxis Intervention: ambulation, LMWH, SCD's Lines/Catheters IV Catheter Type (from Nrsg): Peripheral IV Urinary Cath still in place: No Assessment/Plan Chief Complaint/Hosp Course 62YO Woman h/o diverticulitis, s/p diverting loop colostomy, now s/p open sigmoid resection POD5. Doing OK, again concerned about back/leg/abdominal pain. NGT still putting out bilious emesis. Ostomy appliance changed this AM, ~ 100ml in bag per nurse. VS OK, labs OK. Urine appears adequate. On exam, in bed, NGT in place, flushed and functional. Abdomen is soft, ND, appropriately TTP at wound. Pt MUST get out of bed, told pt and nursing - unsure if PT will come. Family to come, should help out. Will monitor NGT output. If decreased and has some bowel function, will consider clamping. Encourage Toradol for pain and Cepastat lozenge for sore throat. Problems: Subjective 24 Hr Interval Summary Constitutional: improved Respiratory: no complaints Cardiovascular: no complaints Gastrointestinal: pain Exam/Review of Systems Vital Signs Vitals Vital Signs Date Time Temp Pulse Resp B/P Pulse Ox O2 Delivery O2 Flow Rate FiO2 04/08/17 10:25 Nasal Cannula 2.0 04/08/17 08:49 98.6 90 18 140/66 100 04/08/17 08:46 32 Intake and Output 04/07/17 04/07/17 04/08/17 15:00 23:00 07:00 Intake Total 500 ml 1000 ml 1000 ml Output Total 700 ml 1100 ml 1800 ml Balance -200 ml -100 ml -800 ml Exam Constitutional: alert Respiratory: clear to auscultation Cardiovascular: regular rate and rhythm Gastrointestinal: soft (Mild/mod TTP at wound. Wound C/D/I. Stoma pink with new appliance) Results Result Diagram: 04/08/17 0453 04/08/17 0453 Results 24 hrs Laboratory Tests Test 04/07/17 11:48 04/07/17 14:42 04/07/17 17:20 04/07/17 21:02 Bedside Glucose 145 213 257 H 209 Test 04/08/17 00:59 04/08/17 04:53 04/08/17 05:20 04/08/17 09:09 Bedside Glucose 189 198 219 White Blood Count 7.6 Red Blood Count 3.10 L Hemoglobin 8.9 L Hematocrit 29.5 L Mean Corpuscular Volume 95.2 Mean Corpuscular Hemoglobin 28.7 L Mean Corpuscular Hemoglobin Concent 30.2 L Red Cell Distribution Width 14.5 Platelet Count 385 Mean Platelet Volume 8.2 Neutrophils % 74.6 Lymphocytes % 15.3 Monocytes % 8.6 Eosinophils % 0.7 Basophils % 0.4 Nucleated Red Blood Cells % 0.0 Neutrophils # 5.6 Lymphocytes # 1.2 Monocytes # 0.7 Eosinophils # 0.1 Basophils # 0.0 Nucleated Red Blood Cells # 0.0 Prothrombin Time 14.7 H Prothrombin Time Ratio 1.1 INR International Normalized Ratio 1.15 Activated Partial Thromboplast Time 33.9 Sodium Level 140 Potassium Level 4.1 Chloride Level 106 Carbon Dioxide Level 28 Anion Gap 10 Blood Urea Nitrogen 10 Creatinine 0.45 Glucose Level 204 Calcium Level 8.6 Magnesium Level 1.3 L Total Bilirubin 0.1 L Direct Bilirubin 0.00 Indirect Bilirubin 0.1 Aspartate Amino Transf (AST/SGOT) 11 L Alanine Aminotransferase (ALT/SGPT) 31 Alkaline Phosphatase 180 H Total Protein 5.8 L Albumin 2.8 L Globulin 3.00 Albumin/Globulin Ratio 0.93 Medications Medications Current Medications Atenolol (Tenormin) 25 mg DAILY PO Last administered on 04/05/17 08:24; Admin Dose 25 MG; Start 04/04/17 at 09:00 Cyclobenzaprine HCl (Flexeril) 5 mg Q6H PRN PO PAIN; Start 04/03/17 at 15:30 Duloxetine HCl (Cymbalta) 60 mg BID PO Last administered on 04/05/17 20:56; Admin Dose 60 MG; Start 04/03/17 at 21:00 Ergocalciferol (Drisdol) 50,000 unit QMONDAY PO ; Start 04/03/17 at 17:00 Magnesium Oxide (Mag-Ox 400) 400 mg BID PO Last administered on 04/05/17 20:57 ; Admin Dose 400 MG; Start 04/03/17 at 21:00 Paroxetine HCl (Paxil) 40 mg DAILY PO Last administered on 04/05/17 08:25; Admin Dose 40 MG; Start 04/04/17 at 09:00 Calcium Carbonate (Tums) 1,000 mg Q4H PRN PO UPSET STOMACH Last administered on 04/06/17 18:32; Admin Dose 1,000 MG; Start 04/03/17 at 17:30 Atorvastatin Calcium (Lipitor) 10 mg DAILY@21 PO Last administered on 20:57; Admin Dose 10 MG; Start 04/03/17 at 21:00 Miscellaneous Information 1 ea NOTE XX ; Start 04/03/17 at 16:00 Glucose (Glutose) 15 gm Q15M PRN PO DECREASED GLUCOSE; Start 04/03/17 at 16:00 Glucose (Glutose) 22.5 gm Q15M PRN PO DECREASED GLUCOSE; Start 04/03/17 at 16: 00 Dextrose (D50w Syringe) 25 ml Q15M PRN IV DECREASED GLUCOSE Last administered on 04/06/17 02:53; Admin Dose 25 ML; Start 04/03/17 at 16:00 Dextrose (D50w Syringe) 50 ml Q15M PRN IV DECREASED GLUCOSE; Start 04/03/17 at 16:00 Glucagon (Glucagen) 1 mg Q15M PRN IM DECREASED GLUCOSE; Start 04/03/17 at 16:00 Glucose (Glutose) 15 gm Q15M PRN BUCCAL DECREASED GLUCOSE; Start 04/03/17 at 16 :00 Ondansetron HCl (Zofran Inj) 4 mg Q6H PRN IV NAUSEA AND/OR VOMITING Last administered on 04/07/17 14:49; Admin Dose 4 MG; Start 04/03/17 at 17:30 Phenol (Cepastat Lozenge) 1 lozenge PRN PRN MT SORE THROAT; Start 04/03/17 at 17:30 Prednisone (Prednisone) 5 mg DAILY PO Last administered on 04/05/17 08:26; Admin Dose 5 MG; Start 04/04/17 at 09:00 Enoxaparin Sodium (Lovenox) 30 mg DAILY SC Last administered on 04/08/17 09:16 ; Admin Dose 30 MG; Start 04/05/17 at 09:00 Levothyroxine Sodium (Synthroid) 100 mcg DAILY@06 PO Last administered on 07:01; Admin Dose 100 MCG; Start 04/05/17 at 06:00 Acetaminophen/ Hydrocodone Bitart ([place] (5/325)) Give for pain Q4H PRN PO PAIN LEVEL 1-3 Last administered on 04/05/17 20:57; Admin Dose 1 TAB; Start at 09:30 Hydromorphone HCl (Dilaudid) 0.5 mg Q4H PRN IV PAIN Last administered on 19:57; Admin Dose 0.5 MG; Start 04/05/17 at 09:30 Acetaminophen/ Hydrocodone Bitart ([place] (5/325)) 2 tab Q4H PRN PO PAIN Last administered on 04/06/17 14:36; Admin Dose 2 TAB; Start 04/06/17 at 01:25 Insulin Glargine (Lantus) 12 unit QHS SC ; Start 04/06/17 at 21:00; Status Future Hold Pantoprazole 40 mg 40 mg BID@06,18 IV Last administered on 04/08/17 05:22; Admin Dose 40 MG; Start 04/06/17 at 18:00 Potassium Chloride/Dextrose/ Sod Cl (D5-1/2ns + KCl 20 Meq) 1,000 ml @ 100 mls/ hr Q10H IV Last administered on 04/08/17 05:25; Admin Dose 100 MLS/HR; Start 04/06/17 at 10:32 Hydromorphone HCl (Dilaudid) 1 mg Q4H PRN IV PAIN Last administered on 08:03; Admin Dose 1 MG; Start 04/07/17 at 00:00 Hydralazine HCl (Apresoline) 10 mg Q4H PRN IV SBP>160; Start 04/07/17 at 14:00 Insulin Aspart (Novolog Insulin Pen) (Adult SC Insulin - Mild Algorithm)... Q4 SC Last administered on 04/08/17 09:16; Admin Dose 2 UNIT; Start 04/07/17 at 17:00 Ketorolac Tromethamine (Toradol) 15 mg Q6H PRN IV PAIN Last administered on 21:51; Admin Dose 15 MG; Start 04/07/17 at 19:30; Stop 04/10/17 at 19:29 MOY BACON M.D. Apr 08, 2017 11:43
[2017-04-08] MEDS: KETOROLAC 15 MG INJ IV PRN ×2 (12:05→23:58)
--- NOTE | 2017-04-08 13:46 | PN ---
Date/Time of Note Date/Time of Note DATE: 04/08/17 TIME: 13:43 Assessment/Plan VTE Prophylaxis VTE Prophylaxis Intervention: LMWH Lines/Catheters IV Catheter Type (from [facility]): Peripheral IV Urinary Cath still in place: No Assessment/Plan Assessment/Plan 1.History of diverticular abscess/diverticulitis and rectovaginal fistula. -Status post Open sigmoidectomy WITH Cystoscopy and insertion of bilateral ureteral catheters. POD #4 2. Post operative ileus S/p NG tube placement on suction, NPO, G surgery following - IV reglan 3. DMII. - pt is NPO now with NG tube in place, will give D51/2NS with KCl 4.Essential hypertension. Stable. -Continue home medications 5. Hypercholesterolemia. -Continue statin 6. Arthritis. -Continue home medications. 7. Hypothyroidism. -Patient with low TSH and high end of T4 levels. Continue adjusted dose of Synthroid 100 mcg. -Needs outpatient repeat labs in 6 weeks 8.History of exploratory laparotomy, I and D of pelvic abscess and diverting colostomy. 9.Leukocytosis, likely reactive . Urine culture negative. Will monitor. -on cipro+flagyl per surgery. 10. Hypokalemia 2/2 GI loss. Continue repletion and monitor.Add K to IV until she tolerates diet.KCL replacement 11. Tobacco use. -Cessation advised. DVT prophylaxis: Lovenox PUD prophylaxis: Pepcid. Subjective 24 Hr Interval Summary Free Text/Dictation pt stable, still NG tube, all her PO meds held, pt wants to have her psych meds IV but no meds available. Exam/Review of Systems Vital Signs Vitals Vital Signs Date Time Temp Pulse Resp B/P Pulse Ox O2 Delivery O2 Flow Rate FiO2 04/08/17 10:25 Nasal Cannula 2.0 04/08/17 08:49 98.6 90 18 140/66 100 04/08/17 08:46 32 Intake and Output 04/07/17 04/07/17 04/08/17 15:00 23:00 07:00 Intake Total 500 ml 1000 ml 1000 ml Output Total 700 ml 1100 ml 1800 ml Balance -200 ml -100 ml -800 ml Exam Constitutional: alert, NG tube on suction Respiratory: clear to auscultation, diminished breath sounds, normal air movement Cardiovascular: nl pulses, regular rate and rhythm Gastrointestinal: soft, tender (TTP to left side, no rebound. no guarding ) Musculoskeletal: nl extremities to inspection, nl gait and stance Extremities: normal pulses Neurological: [employer] II-XII intact, nl mental status, nl speech, nl strength Results Result Diagram: 04/08/17 0453 04/08/17 0453 Results 24 hrs Laboratory Tests Test 04/07/17 14:42 04/07/17 17:20 04/07/17 21:02 04/08/17 00:59 Bedside Glucose 213 257 H 209 189 Test 04/08/17 04:53 04/08/17 05:20 04/08/17 09:09 White Blood Count 7.6 Red Blood Count 3.10 L Hemoglobin 8.9 L Hematocrit 29.5 L Mean Corpuscular Volume 95.2 Mean Corpuscular Hemoglobin 28.7 L Mean Corpuscular Hemoglobin Concent 30.2 L Red Cell Distribution Width 14.5 Platelet Count 385 Mean Platelet Volume 8.2 Neutrophils % 74.6 Lymphocytes % 15.3 Monocytes % 8.6 Eosinophils % 0.7 Basophils % 0.4 Nucleated Red Blood Cells % 0.0 Neutrophils # 5.6 Lymphocytes # 1.2 Monocytes # 0.7 Eosinophils # 0.1 Basophils # 0.0 Nucleated Red Blood Cells # 0.0 Prothrombin Time 14.7 H Prothrombin Time Ratio 1.1 INR International Normalized Ratio 1.15 Activated Partial Thromboplast Time 33.9 Sodium Level 140 Potassium Level 4.1 Chloride Level 106 Carbon Dioxide Level 28 Anion Gap 10 Blood Urea Nitrogen 10 Creatinine 0.45 Glucose Level 204 Calcium Level 8.6 Magnesium Level 1.3 L Total Bilirubin 0.1 L Direct Bilirubin 0.00 Indirect Bilirubin 0.1 Aspartate Amino Transf (AST/SGOT) 11 L Alanine Aminotransferase (ALT/SGPT) 31 Alkaline Phosphatase 180 H Total Protein 5.8 L Albumin 2.8 L Globulin 3.00 Albumin/Globulin Ratio 0.93 Bedside Glucose 198 219 Medications Medications Current Medications Atenolol (Tenormin) 25 mg DAILY PO Last administered on 04/05/17 08:24; Admin Dose 25 MG; Start 04/04/17 at 09:00 Cyclobenzaprine HCl (Flexeril) 5 mg Q6H PRN PO PAIN; Start 04/03/17 at 15:30 Duloxetine HCl (Cymbalta) 60 mg BID PO Last administered on 04/05/17 20:56; Admin Dose 60 MG; Start 04/03/17 at 21:00 Ergocalciferol (Drisdol) 50,000 unit QMONDAY PO ; Start 04/03/17 at 17:00 Magnesium Oxide (Mag-Ox 400) 400 mg BID PO Last administered on 04/05/17 20:57 ; Admin Dose 400 MG; Start 04/03/17 at 21:00 Paroxetine HCl (Paxil) 40 mg DAILY PO Last administered on 04/05/17 08:25; Admin Dose 40 MG; Start 04/04/17 at 09:00 Calcium Carbonate (Tums) 1,000 mg Q4H PRN PO UPSET STOMACH Last administered on 04/06/17 18:32; Admin Dose 1,000 MG; Start 04/03/17 at 17:30 Atorvastatin Calcium (Lipitor) 10 mg DAILY@21 PO Last administered on 20:57; Admin Dose 10 MG; Start 04/03/17 at 21:00 Miscellaneous Information 1 ea NOTE XX ; Start 04/03/17 at 16:00 Glucose (Glutose) 15 gm Q15M PRN PO DECREASED GLUCOSE; Start 04/03/17 at 16:00 Glucose (Glutose) 22.5 gm Q15M PRN PO DECREASED GLUCOSE; Start 04/03/17 at 16: 00 Dextrose (D50w Syringe) 25 ml Q15M PRN IV DECREASED GLUCOSE Last administered on 04/06/17 02:53; Admin Dose 25 ML; Start 04/03/17 at 16:00 Dextrose (D50w Syringe) 50 ml Q15M PRN IV DECREASED GLUCOSE; Start 04/03/17 at 16:00 Glucagon (Glucagen) 1 mg Q15M PRN IM DECREASED GLUCOSE; Start 04/03/17 at 16:00 Glucose (Glutose) 15 gm Q15M PRN BUCCAL DECREASED GLUCOSE; Start 04/03/17 at 16 :00 Ondansetron HCl (Zofran Inj) 4 mg Q6H PRN IV NAUSEA AND/OR VOMITING Last administered on 04/07/17 14:49; Admin Dose 4 MG; Start 04/03/17 at 17:30 Phenol (Cepastat Lozenge) 1 lozenge PRN PRN MT SORE THROAT; Start 04/03/17 at 17:30 Prednisone (Prednisone) 5 mg DAILY PO Last administered on 04/05/17 08:26; Admin Dose 5 MG; Start 04/04/17 at 09:00 Enoxaparin Sodium (Lovenox) 30 mg DAILY SC Last administered on 04/08/17 09:16 ; Admin Dose 30 MG; Start 04/05/17 at 09:00 Levothyroxine Sodium (Synthroid) 100 mcg DAILY@06 PO Last administered on 07:01; Admin Dose 100 MCG; Start 04/05/17 at 06:00 Acetaminophen/ Hydrocodone Bitart ([place] (5/325)) Give for pain Q4H PRN PO PAIN LEVEL 1-3 Last administered on 04/05/17 20:57; Admin Dose 1 TAB; Start at 09:30 Hydromorphone HCl (Dilaudid) 0.5 mg Q4H PRN IV PAIN Last administered on 19:57; Admin Dose 0.5 MG; Start 04/05/17 at 09:30 Acetaminophen/ Hydrocodone Bitart ([place] (5/325)) 2 tab Q4H PRN PO PAIN Last administered on 04/06/17 14:36; Admin Dose 2 TAB; Start 04/06/17 at 01:25 Insulin Glargine (Lantus) 12 unit QHS SC ; Start 04/06/17 at 21:00; Status Future Hold Pantoprazole 40 mg 40 mg BID@06,18 IV Last administered on 04/08/17 05:22; Admin Dose 40 MG; Start 04/06/17 at 18:00 Potassium Chloride/Dextrose/ Sod Cl (D5-1/2ns + KCl 20 Meq) 1,000 ml @ 100 mls/ hr Q10H IV Last administered on 04/08/17 05:25; Admin Dose 100 MLS/HR; Start 04/06/17 at 10:32 Hydromorphone HCl (Dilaudid) 1 mg Q4H PRN IV PAIN Last administered on 12:24; Admin Dose 1 MG; Start 04/07/17 at 00:00 Hydralazine HCl (Apresoline) 10 mg Q4H PRN IV SBP>160; Start 04/07/17 at 14:00 Insulin Aspart (Novolog Insulin Pen) (Adult SC Insulin - Mild Algorithm)... Q4 SC Last administered on 04/08/17 09:16; Admin Dose 2 UNIT; Start 04/07/17 at 17:00 Ketorolac Tromethamine (Toradol) 15 mg Q6H PRN IV PAIN Last administered on 12:05; Admin Dose 15 MG; Start 04/07/17 at 19:30; Stop 04/10/17 at 19:29 UGO BRYANT MD Apr 08, 2017 13:46
[2017-04-08 14:43] VITALS: BP 143/66; RESP 18
[2017-04-08] MEDS ORDERED: MAGNESIUM SULFATE 3 GM in SOD CHLORIDE 0.9% 100 ML IVPB ONE (16:00)
[2017-04-08 19:20] VITALS: BP 130/70; RESP 18
[2017-04-08] MEDS: ATORVASTATIN 10 MG TAB PO SCH (19:41)
[2017-04-09] MEDS: HYDROmorphONE 1 MG/ML SYG IV PRN ×6 (00:48→21:50)
[2017-04-09] MEDS: INSULIN ASPART [NOVOLOG] 3 ML PEN SC SCH ×6 (00:59→21:13)
[2017-04-09] MEDS: ALBUTEROL/IPRATROPIUM (NEB) 3 ML AMP HHN SCH ×4 (01:16→20:14)
[2017-04-09 02:00] VITALS: BP 117/56; RESP 18
[2017-04-09] MEDS: PANTOPRAZOLE 40 MG INJ IV SCH ×2 (05:07→17:51)
[2017-04-09 05:25] LABS: BASOPHILS % 0.2 % (0.0-2.0); EOSINOPHILS # 0.1 10^3/ul (0.0-0.5); EOSINOPHILS % 0.9 % (0.0-7.0); HEMATOCRIT 27.6 % (37.0-47.0); HEMOGLOBIN 8.3 g/dl (12.0-16.0); LYMPHOCYTES # 1.2 10^3/ul (0.8-2.9); LYMPHOCYTES % 13.8 % (15.0-51.0); MEAN CORPUSCULAR HEMOGLOBIN 28.1 pg (29.0-33.0); MEAN CORPUSCULAR HGB CONC 30.1 g/dl (32.0-37.0); MEAN CORPUSCULAR VOLUME 93.6 fl (82.0-101.0); MEAN PLATELET VOLUME 8.3 fl (7.4-10.4); MONOCYTE # 0.7 10^3/ul (0.3-0.9); MONOCYTES % 7.3 % (0.0-11.0); NEUTROPHIL # 6.9 10^3/ul (1.6-7.5); NEUTROPHILS % 77.1 % (39.0-77.0); PLATELET COUNT 373 10^3/UL (140-415); RED BLOOD COUNT 2.95 10^6/ul (4.20-5.40); RED CELL DISTRIBUTION WIDTH 14.4 % (11.5-14.5); WHITE BLOOD COUNT 8.9 10^3/ul (4.8-10.8)
[2017-04-09] MEDS: LEVOTHYROXINE 100 MCG TAB PO SCH (05:40)
[2017-04-09 05:48] LABS: CALCIUM 8.1 mg/dl (8.4-10.2); CREATININE 0.46 mg/dl (0.44-1.00); POTASSIUM 3.9 mmol/L (3.5-5.1)
[2017-04-09 05:54] LABS: MAGNESIUM 1.8 mg/dl (1.7-2.5); PHOSPHORUS 3.2 mg/dl (2.5-4.9)
[2017-04-09] MEDS: KETOROLAC 15 MG INJ IV PRN ×3 (06:11→20:13)
[2017-04-09] MEDS: D5W-0.45 NACL + KCL 20 MEQ 1,000 ML IV SCH ×2 (06:12→17:12)
[2017-04-09] MEDS: CEPASTAT LOZENGE MT PRN ×2 (06:35→20:12)
[2017-04-09 08:00] VITALS: BP 129/60; RESP 18
--- NOTE | 2017-04-09 08:18 | PN ---
Date/Time of Note Date/Time of Note DATE: 04/09/17 TIME: 08:14 Assessment/Plan VTE Prophylaxis VTE Prophylaxis Intervention: ambulation, LMWH, SCD's Lines/Catheters IV Catheter Type (from Nrs): Peripheral IV Urinary Cath still in place: No Assessment/Plan Chief Complaint/Hosp Course 62YO Woman h/o diverticulitis, s/p diverting loop colostomy, now s/p open sigmoid resection POD6. Doing OK, again concerned about back/leg/abdominal pain. NGT output decreased and clearer. Reports being OOB yesterday. No CP/ SOB/F/C. Had 100F yesterday but resolved, WBC WNL. Will try clamping NGT now, check at 1200 and 1600. If low residuals and still having stoma function ( nurse reports 500ml/24 hrs), will consider D/C NGT. In meantime, OOB - instructed nurse pt MUST be out of bed today. Appreciate medicine following. Problems: Subjective 24 Hr Interval Summary Constitutional: no complaints Respiratory: no complaints Cardiovascular: no complaints Gastrointestinal: pain Exam/Review of Systems Vital Signs Vitals Vital Signs Date Time Temp Pulse Resp B/P Pulse Ox O2 Delivery O2 Flow Rate FiO2 04/09/17 07:11 74 14 94 21 04/09/17 02:51 98.8 04/09/17 02:00 117/56 04/09/17 01:29 2.0 04/09/17 01:16 Nasal Cannula Intake and Output 04/08/17 04/08/17 04/09/17 15:00 23:00 07:00 Intake Total 950 ml 800 ml Output Total 250 ml 600 ml 950 ml Balance -250 ml 350 ml -150 ml Exam Constitutional: alert, oriented Respiratory: clear to auscultation Cardiovascular: regular rate and rhythm Gastrointestinal: soft (wound C/D/I, ND, mild/mod TTP) Extremities: other (no edema) Results Result Diagram: 04/09/17 0441 04/09/170 Results 24 hrs Laboratory Tests Test 04/08/17 09:09 04/08/17 14:21 04/08/17 17:53 04/08/17 20:56 Bedside Glucose 219 217 159 155 Test 04/09/17 00:55 04/09/17 04:40 04/09/17 04:41 04/09/17 05:04 Bedside Glucose 171 171 Sodium Level 137 Potassium Level 3.9 Chloride Level 105 Carbon Dioxide Level 28 Anion Gap 8 Blood Urea Nitrogen 7 Creatinine 0.46 Glucose Level 169 Calcium Level 8.1 L White Blood Count 8.9 Red Blood Count 2.95 L Hemoglobin 8.3 L Hematocrit 27.6 L Mean Corpuscular Volume 93.6 Mean Corpuscular Hemoglobin 28.1 L Mean Corpuscular Hemoglobin Concent 30.1 L Red Cell Distribution Width 14.4 Platelet Count 373 Mean Platelet Volume 8.3 Neutrophils % 77.1 H Lymphocytes % 13.8 L Monocytes % 7.3 Eosinophils % 0.9 Basophils % 0.2 Nucleated Red Blood Cells % 0.0 Neutrophils # 6.9 Lymphocytes # 1.2 Monocytes # 0.7 Eosinophils # 0.1 Basophils # 0.0 Nucleated Red Blood Cells # 0.0 Phosphorus Level 3.2 Magnesium Level 1.8 Medications Medications Current Medications Atenolol (Tenormin) 25 mg DAILY PO Last administered on 04/05/17 08:24; Admin Dose 25 MG; Start 04/04/17 at 09:00 Cyclobenzaprine HCl (Flexeril) 5 mg Q6H PRN PO PAIN; Start 04/03/17 at 15:30 Duloxetine HCl (Cymbalta) 60 mg BID PO Last administered on 04/05/17 20:56; Admin Dose 60 MG; Start 04/03/17 at 21:00 Ergocalciferol (Drisdol) 50,000 unit QMONDAY PO ; Start 04/03/17 at 17:00 Magnesium Oxide (Mag-Ox 400) 400 mg BID PO Last administered on 04/05/17 20:57 ; Admin Dose 400 MG; Start 04/03/17 at 21:00 Paroxetine HCl (Paxil) 40 mg DAILY PO Last administered on 04/05/17 08:25; Admin Dose 40 MG; Start 04/04/17 at 09:00 Calcium Carbonate (Tums) 1,000 mg Q4H PRN PO UPSET STOMACH Last administered on 04/06/17 18:32; Admin Dose 1,000 MG; Start 04/03/17 at 17:30 Atorvastatin Calcium (Lipitor) 10 mg DAILY@21 PO Last administered on 20:57; Admin Dose 10 MG; Start 04/03/17 at 21:00 Miscellaneous Information 1 ea NOTE XX ; Start 04/03/17 at 16:00 Glucose (Glutose) 15 gm Q15M PRN PO DECREASED GLUCOSE; Start 04/03/17 at 16:00 Glucose (Glutose) 22.5 gm Q15M PRN PO DECREASED GLUCOSE; Start 04/03/17 at 16: 00 Dextrose (D50w Syringe) 25 ml Q15M PRN IV DECREASED GLUCOSE Last administered on 04/06/17 02:53; Admin Dose 25 ML; Start 04/03/17 at 16:00 Dextrose (D50w Syringe) 50 ml Q15M PRN IV DECREASED GLUCOSE; Start 04/03/17 at 16:00 Glucagon (Glucagen) 1 mg Q15M PRN IM DECREASED GLUCOSE; Start 04/03/17 at 16:00 Glucose (Glutose) 15 gm Q15M PRN BUCCAL DECREASED GLUCOSE; Start 04/03/17 at 16 :00 Ondansetron HCl (Zofran Inj) 4 mg Q6H PRN IV NAUSEA AND/OR VOMITING Last administered on 04/07/17 14:49; Admin Dose 4 MG; Start 04/03/17 at 17:30 Phenol (Cepastat Lozenge) 1 lozenge PRN PRN MT SORE THROAT Last administered on 04/09/17 06:35; Admin Dose 1 LOZENGE; Start 04/03/17 at 17:30 Prednisone (Prednisone) 5 mg DAILY PO Last administered on 04/05/17 08:26; Admin Dose 5 MG; Start 04/04/17 at 09:00 Enoxaparin Sodium (Lovenox) 30 mg DAILY SC Last administered on 04/08/17 09:16 ; Admin Dose 30 MG; Start 04/05/17 at 09:00 Levothyroxine Sodium (Synthroid) 100 mcg DAILY@06 PO Last administered on 07:01; Admin Dose 100 MCG; Start 04/05/17 at 06:00 Acetaminophen/ Hydrocodone Bitart ([place] (5/325)) Give for pain Q4H PRN PO PAIN LEVEL 1-3 Last administered on 04/05/17 20:57; Admin Dose 1 TAB; Start at 09:30 Hydromorphone HCl (Dilaudid) 0.5 mg Q4H PRN IV PAIN Last administered on 19:57; Admin Dose 0.5 MG; Start 04/05/17 at 09:30 Acetaminophen/ Hydrocodone Bitart ([place] (5/325)) 2 tab Q4H PRN PO PAIN Last administered on 04/06/17 14:36; Admin Dose 2 TAB; Start 04/06/17 at 01:25 Insulin Glargine (Lantus) 12 unit QHS SC ; Start 04/06/17 at 21:00; Status Future Hold Pantoprazole 40 mg 40 mg BID@06,18 IV Last administered on 04/09/17 05:07; Admin Dose 40 MG; Start 04/06/17 at 18:00 Potassium Chloride/Dextrose/ Sod Cl (D5-1/2ns + KCl 20 Meq) 1,000 ml @ 100 mls/ hr Q10H IV Last administered on 04/09/17 06:12; Admin Dose 100 MLS/HR; Start 04/06/17 at 10:32 Hydromorphone HCl (Dilaudid) 1 mg Q4H PRN IV PAIN Last administered on 04:54; Admin Dose 1 MG; Start 04/07/17 at 00:00 Hydralazine HCl (Apresoline) 10 mg Q4H PRN IV SBP>160; Start 04/07/17 at 14:00 Insulin Aspart (Novolog Insulin Pen) (Adult SC Insulin - Mild Algorithm)... Q4 SC Last administered on 04/09/17 05:06; Admin Dose 1 UNIT; Start 04/07/17 at 17:00 Ketorolac Tromethamine (Toradol) 15 mg Q6H PRN IV PAIN Last administered on 06:11; Admin Dose 15 MG; Start 04/07/17 at 19:30; Stop 04/10/17 at 19:29 MOY BACON M.D. Apr 09, 2017 08:18
[2017-04-09] MEDS: GABAPENTIN 100 MG CAP PO SCH (08:37)
[2017-04-09] MEDS: DULOXETINE 30 MG CAP DR PO SCH ×2 (08:37→21:00)
[2017-04-09] MEDS: PAROXETINE 20 MG TAB PO SCH (08:38)
[2017-04-09] MEDS: MAGNESIUM OXIDE 400 MG TAB PO SCH ×2 (08:38→21:00)
[2017-04-09] MEDS: ATENOLOL 25 MG TAB PO SCH (08:43)
[2017-04-09] MEDS: predniSONE 5 MG TAB PO SCH (08:44)
[2017-04-09] MEDS: ENOXAPARIN 30 MG/0.3 ML SYG SC SCH (08:46)
--- NOTE | 2017-04-09 11:07 | PN ---
Date/Time of Note Date/Time of Note DATE: 04/09/17 TIME: 11:04 Assessment/Plan VTE Prophylaxis VTE Prophylaxis Intervention: LMWH Lines/Catheters IV [facility] Type (from [facility] Peripheral IV Urinary Cath still in place: No Assessment/Plan Assessment/Plan 1.History of diverticular abscess/diverticulitis and rectovaginal fistula. -Status post Open sigmoidectomy WITH Cystoscopy and insertion of bilateral ureteral catheters. - s/p IV abx, Currently off abx, WBC stable, afebrile 2. Post operative ileus S/p NG tube placement on suction, NPO, G surgery following - IV reglan , plan is to clamp NG tube intermittently and see how pt do 3. DMII. - pt is NPO now with NG tube in place, continue D51/2NS with KCl 4.Essential hypertension. Stable. -Continue home medications 5. Hypercholesterolemia. -Continue statin 6. Arthritis. -Continue home medications. 7. Hypothyroidism. -Patient with low TSH and high end of T4 levels. Continue adjusted dose of Synthroid 100 mcg. -Needs outpatient repeat labs in 6 weeks 8.History of exploratory laparotomy, I and D of pelvic abscess and diverting colostomy. 9. Hypokalemia 2/2 GI loss. Continue repletion and monitor.Add K to IV until she tolerates diet.KCL replacement 11. Tobacco use. -Cessation advised. DVT prophylaxis: Lovenox PUD prophylaxis: Pepcid. Subjective 24 Hr Interval Summary Free Text/Dictation doing better, Plan is to clamp NG tube today as per Gen surgery Exam/Review of Systems Vital Signs Vitals Vital Signs Date Time Temp Pulse Resp B/P Pulse Ox O2 Delivery O2 Flow Rate FiO2 04/09/17 08:00 98.9 77 18 129/60 98 04/09/17 07:11 21 04/09/17 01:29 2.0 04/09/17 01:16 Nasal Cannula Intake and Output 04/08/17 04/08/17 04/09/17 15:00 23:00 07:00 Intake Total 950 ml 800 ml Output Total 250 ml 600 ml 950 ml Balance -250 ml 350 ml -150 ml Exam Constitutional: alert. no acute distress, + NG tube in place Respiratory: clear to auscultation, diminished breath sounds, normal air movement Cardiovascular: nl pulses, regular rate and rhythm Gastrointestinal: soft, tender (TTP to left side, no rebound. no guarding ) Musculoskeletal: nl extremities to inspection, nl gait and stance Extremities: normal pulses, no clubbing/cyanosis Results Result Diagram: 04/09/1744004/09/17439 Results 24 hrs Laboratory Tests Test 04/08/17 14:21 04/08/17 17:53 04/08/17 20:56 04/09/17 00:55 Bedside Glucose 217 159 155 171 Test 04/09/17 04:40 04/09/17 04:41 04/09/17 05:04 Sodium Level 137 Potassium Level 3.9 Chloride Level 105 Carbon Dioxide Level 28 Anion Gap 8 Blood Urea Nitrogen 7 Creatinine 0.46 Glucose Level 169 Calcium Level 8.1 L White Blood Count 8.9 Red Blood Count 2.95 L Hemoglobin 8.3 L Hematocrit 27.6 L Mean Corpuscular Volume 93.6 Mean Corpuscular Hemoglobin 28.1 L Mean Corpuscular Hemoglobin Concent 30.1 L Red Cell Distribution Width 14.4 Platelet Count 373 Mean Platelet Volume 8.3 Neutrophils % 77.1 H Lymphocytes % 13.8 L Monocytes % 7.3 Eosinophils % 0.9 Basophils % 0.2 Nucleated Red Blood Cells % 0.0 Neutrophils # 6.9 Lymphocytes # 1.2 Monocytes # 0.7 Eosinophils # 0.1 Basophils # 0.0 Nucleated Red Blood Cells # 0.0 Phosphorus Level 3.2 Magnesium Level 1.8 Bedside Glucose 171 Medications Medications Current Medications Atenolol (Tenormin) 25 mg DAILY PO Last administered on 04/09/17 08:43; Admin Dose 25 MG; Start 04/04/17 at 09:00 Cyclobenzaprine HCl (Flexeril) 5 mg Q6H PRN PO PAIN; Start 04/03/17 at 15:30 Duloxetine HCl (Cymbalta) 60 mg BID PO Last administered on 04/09/17 08:37; Admin Dose 60 MG; Start 04/03/17 at 21:00 Ergocalciferol (Drisdol) 50,000 unit QMONDAY PO ; Start 04/03/17 at 17:00 Magnesium Oxide (Mag-Ox 400) 400 mg BID PO Last administered on 04/09/17 08:38 ; Admin Dose 400 MG; Start 04/03/17 at 21:00 Paroxetine HCl (Paxil) 40 mg DAILY PO Last administered on 04/09/17 08:38; Admin Dose 40 MG; Start 04/04/17 at 09:00 Calcium Carbonate (Tums) 1,000 mg Q4H PRN PO UPSET STOMACH Last administered on 04/06/17 18:32; Admin Dose 1,000 MG; Start 04/03/17 at 17:30 Atorvastatin Calcium (Lipitor) 10 mg DAILY@21 PO Last administered on 20:57; Admin Dose 10 MG; Start 04/03/17 at 21:00 Miscellaneous Information 1 ea NOTE XX ; Start 04/03/17 at 16:00 Glucose (Glutose) 15 gm Q15M PRN PO DECREASED GLUCOSE; Start 04/03/17 at 16:00 Glucose (Glutose) 22.5 gm Q15M PRN PO DECREASED GLUCOSE; Start 04/03/17 at 16: 00 Dextrose (D50w Syringe) 25 ml Q15M PRN IV DECREASED GLUCOSE Last administered on 04/06/17 02:53; Admin Dose 25 ML; Start 04/03/17 at 16:00 Dextrose (D50w Syringe) 50 ml Q15M PRN IV DECREASED GLUCOSE; Start 04/03/17 at 16:00 Glucagon (Glucagen) 1 mg Q15M PRN IM DECREASED GLUCOSE; Start 04/03/17 at 16:00 Glucose (Glutose) 15 gm Q15M PRN BUCCAL DECREASED GLUCOSE; Start 04/03/17 at 16 :00 Ondansetron HCl (Zofran Inj) 4 mg Q6H PRN IV NAUSEA AND/OR VOMITING Last administered on 04/07/17 14:49; Admin Dose 4 MG; Start 04/03/17 at 17:30 Phenol (Cepastat Lozenge) 1 lozenge PRN PRN MT SORE THROAT Last administered on 04/09/17 06:35; Admin Dose 1 LOZENGE; Start 04/03/17 at 17:30 Prednisone (Prednisone) 5 mg DAILY PO Last administered on 04/09/17 08:44; Admin Dose 5 MG; Start 04/04/17 at 09:00 Enoxaparin Sodium (Lovenox) 30 mg DAILY SC Last administered on 04/09/17 08:46 ; Admin Dose 30 MG; Start 04/05/17 at 09:00 Levothyroxine Sodium (Synthroid) 100 mcg DAILY@06 PO Last administered on 07:01; Admin Dose 100 MCG; Start 04/05/17 at 06:00 Acetaminophen/ Hydrocodone Bitart ([place] (5/325)) Give for pain Q4H PRN PO PAIN LEVEL 1-3 Last administered on 04/05/17 20:57; Admin Dose 1 TAB; Start at 09:30 Hydromorphone HCl (Dilaudid) 0.5 mg Q4H PRN IV PAIN Last administered on 08:38; Admin Dose 0.5 MG; Start 04/05/17 at 09:30 Acetaminophen/ Hydrocodone Bitart ([place] (5/325)) 2 tab Q4H PRN PO PAIN Last administered on 04/06/17 14:36; Admin Dose 2 TAB; Start 04/06/17 at 01:25 Insulin Glargine (Lantus) 12 unit QHS SC ; Start 04/06/17 at 21:00; Status Future Hold Pantoprazole 40 mg 40 mg BID@06,18 IV Last administered on 04/09/17 05:07; Admin Dose 40 MG; Start 04/06/17 at 18:00 Potassium Chloride/Dextrose/ Sod Cl (D5-1/2ns + KCl 20 Meq) 1,000 ml @ 100 mls/ hr Q10H IV Last administered on 04/09/17 06:12; Admin Dose 100 MLS/HR; Start 04/06/17 at 10:32 Hydromorphone HCl (Dilaudid) 1 mg Q4H PRN IV PAIN Last administered on 04:54; Admin Dose 1 MG; Start 04/07/17 at 00:00 Hydralazine HCl (Apresoline) 10 mg Q4H PRN IV SBP>160; Start 04/07/17 at 14:00 Insulin Aspart (Novolog Insulin Pen) (Adult SC Insulin - Mild Algorithm)... Q4 SC Last administered on 04/09/17 08:45; Admin Dose 2 UNIT; Start 04/07/17 at 17:00 Ketorolac Tromethamine (Toradol) 15 mg Q6H PRN IV PAIN Last administered on 06:11; Admin Dose 15 MG; Start 04/07/17 at 19:30; Stop 04/10/17 at 19:29 UGO BRYANT MD Apr 09, 2017 11:07
[2017-04-09 14:00] VITALS: BP 115/57; RESP 18
[2017-04-09 20:03] VITALS: BP 129/67; RESP 16
[2017-04-09] MEDS ORDERED: ACETAMINOPHEN 1000MG/100ML IV 100 ML IVPB SCH (21:00)
[2017-04-09] MEDS: ATORVASTATIN 10 MG TAB PO SCH (21:00)
[2017-04-09] MEDS: ACETAMINOPHEN 1000MG/100ML IV 100 ML IVPB SCH (21:07)
[2017-04-09] MEDS: CALCIUM CARBONATE 500 MG CHEW TAB PO PRN (23:32)
[2017-04-10] MEDS: INSULIN ASPART [NOVOLOG] 3 ML PEN SC SCH ×6 (01:00→21:12)
[2017-04-10] MEDS: HYDROmorphONE 1 MG/ML SYG IV PRN ×6 (01:35→22:01)
[2017-04-10] MEDS: ALBUTEROL/IPRATROPIUM (NEB) 3 ML AMP HHN SCH ×4 (02:00→20:05)
[2017-04-10 02:02] VITALS: BP 129/61; RESP 16
[2017-04-10] MEDS: KETOROLAC 15 MG INJ IV PRN (02:30)
[2017-04-10] MEDS: CEPASTAT LOZENGE MT PRN (03:41)
[2017-04-10] MEDS: D5W-0.45 NACL + KCL 20 MEQ 1,000 ML IV SCH (03:41)
[2017-04-10] MEDS: ACETAMINOPHEN 1000MG/100ML IV 100 ML IVPB SCH ×3 (04:05→21:01)
[2017-04-10 05:10] LABS: BASOPHILS % 0.3 % (0.0-2.0); EOSINOPHILS # 0.1 10^3/ul (0.0-0.5); EOSINOPHILS % 1.1 % (0.0-7.0); HEMATOCRIT 25.6 % (37.0-47.0); HEMOGLOBIN 7.9 g/dl (12.0-16.0); LYMPHOCYTES # 1.4 10^3/ul (0.8-2.9); LYMPHOCYTES % 19.2 % (15.0-51.0); MEAN CORPUSCULAR HEMOGLOBIN 28.9 pg (29.0-33.0); MEAN CORPUSCULAR HGB CONC 30.9 g/dl (32.0-37.0); MEAN CORPUSCULAR VOLUME 93.8 fl (82.0-101.0); MEAN PLATELET VOLUME 8.2 fl (7.4-10.4); MONOCYTE # 0.6 10^3/ul (0.3-0.9); MONOCYTES % 7.9 % (0.0-11.0); NEUTROPHIL # 5.2 10^3/ul (1.6-7.5); NEUTROPHILS % 70.4 % (39.0-77.0); PLATELET COUNT 386 10^3/UL (140-415); RED BLOOD COUNT 2.73 10^6/ul (4.20-5.40); RED CELL DISTRIBUTION WIDTH 14.3 % (11.5-14.5); WHITE BLOOD COUNT 7.4 10^3/ul (4.8-10.8)
[2017-04-10] MEDS: PANTOPRAZOLE 40 MG INJ IV SCH ×2 (05:20→18:14)
[2017-04-10 05:21] LABS: ALBUMIN 2.4 g/dl (3.3-4.9); ALBUMIN/GLOBULIN RATIO 0.77; CALCIUM 8.2 mg/dl (8.4-10.2); CREATININE 0.47 mg/dl (0.44-1.00); POTASSIUM 3.8 mmol/L (3.5-5.1); TOTAL PROTEIN 5.5 g/dl (6.1-8.1)
[2017-04-10 05:58] LABS: INR 1.21; PROTIME 15.4 Sec (12.2-14.2); PT RATIO 1.2
[2017-04-10] MEDS: LEVOTHYROXINE 100 MCG TAB PO SCH (06:00)
[2017-04-10 06:01] LABS: MAGNESIUM 1.4 mg/dl (1.7-2.5); PHOSPHORUS 3.4 mg/dl (2.5-4.9)
[2017-04-10] MEDS: GABAPENTIN 100 MG CAP PO SCH (07:50)
[2017-04-10 08:16] VITALS: BP 109/57; PULSE 76; RESP 18
--- NOTE | 2017-04-10 08:52 | PN ---
Date/Time of Note Date/Time of Note DATE: 04/10/17 TIME: 08:41 Assessment/Plan VTE Prophylaxis VTE Prophylaxis Intervention: ambulation, LMWH, SCD's Lines/Catheters IV Catheter Type (from Nrs): Peripheral IV Urinary Cath still in place: No Assessment/Plan Chief Complaint/Hosp Course 62YO Woman h/o diverticulitis, s/p diverting loop colostomy, now s/p open sigmoid resection POD7.. Doing OK, had ~ 150 residuals yesterday. NGT clamped for past 2.5 hours. At bedside, pt states she's OK. NO CP/SOB/F/C/NV. Having ostomy function and urinating well. VS OK. Reconnected NGT to suction, no output. Will clamp til noon then check. If low residuals, will D/C NGT. If high, will do upper GI SBFT, have medicine get PICC and TPN. Pt agrees with plan. Problems: Subjective 24 Hr Interval Summary Constitutional: improved Respiratory: no complaints Cardiovascular: no complaints Gastrointestinal: pain Exam/Review of Systems Vital Signs Vitals Vital Signs Date Time Temp Pulse Resp B/P Pulse Ox O2 Delivery O2 Flow Rate FiO2 04/10/17 08:16 97.8 76 18 109/57 96 Room Air 04/09/17 20:15 21 04/09/17 01:29 2.0 Intake and Output 04/09/17 04/09/17 04/10/17 15:00 23:00 07:00 Intake Total 1050 ml 550 ml Output Total 1250 ml 1050 ml Balance -200 ml -500 ml Exam Constitutional: alert, oriented Respiratory: clear to auscultation Cardiovascular: regular rate and rhythm Gastrointestinal: soft (mildly TTP, wound C/D/I) Results Result Diagram: 04/10/17 0426 04/10/17 0426 Results 24 hrs Laboratory Tests Test 04/09/17 13:47 04/09/17 17:10 04/09/17 21:09 04/10/17 00:58 Bedside Glucose 155 149 147 134 Test 04/10/17 04:26 04/10/17 05:19 04/10/17 07:06 White Blood Count 7.4 Red Blood Count 2.73 L Hemoglobin 7.9 L Hematocrit 25.6 L Mean Corpuscular Volume 93.8 Mean Corpuscular Hemoglobin 28.9 L Mean Corpuscular Hemoglobin Concent 30.9 L Red Cell Distribution Width 14.3 Platelet Count 386 Mean Platelet Volume 8.2 Neutrophils % 70.4 Lymphocytes % 19.2 Monocytes % 7.9 Eosinophils % 1.1 Basophils % 0.3 Nucleated Red Blood Cells % 0.0 Neutrophils # 5.2 Lymphocytes # 1.4 Monocytes # 0.6 Eosinophils # 0.1 Basophils # 0.0 Nucleated Red Blood Cells # 0.0 Prothrombin Time 15.4 H Prothrombin Time Ratio 1.2 INR International Normalized Ratio 1.21 Activated Partial Thromboplast Time 36.0 H Sodium Level 134 L Potassium Level 3.8 Chloride Level 105 Carbon Dioxide Level 26 Anion Gap 7 L Blood Urea Nitrogen 6 L Creatinine 0.47 Glucose Level 129 # Calcium Level 8.2 L Phosphorus Level 3.4 Magnesium Level 1.4 L Total Bilirubin 0.0 L Direct Bilirubin 0.00 Indirect Bilirubin 0.0 Aspartate Amino Transf (AST/SGOT) 15 Alanine Aminotransferase (ALT/SGPT) 29 Alkaline Phosphatase 174 H Total Protein 5.5 L Albumin 2.4 L Globulin 3.10 Albumin/Globulin Ratio 0.77 Bedside Glucose 134 Lab Scanned Report REFERENCE LAB Medications Medications Current Medications Atenolol (Tenormin) 25 mg DAILY PO Last administered on 04/09/17 08:43; Admin Dose 25 MG; Start 04/04/17 at 09:00 Cyclobenzaprine HCl (Flexeril) 5 mg Q6H PRN PO PAIN; Start 04/03/17 at 15:30 Duloxetine HCl (Cymbalta) 60 mg BID PO Last administered on 04/09/17 08:37; Admin Dose 60 MG; Start 04/03/17 at 21:00 Ergocalciferol (Drisdol) 50,000 unit QMONDAY PO ; Start 04/03/17 at 17:00 Magnesium Oxide (Mag-Ox 400) 400 mg BID PO Last administered on 04/09/17 08:38 ; Admin Dose 400 MG; Start 04/03/17 at 21:00 Paroxetine HCl (Paxil) 40 mg DAILY PO Last administered on 04/09/17 08:38; Admin Dose 40 MG; Start 04/04/17 at 09:00 Calcium Carbonate (Tums) 1,000 mg Q4H PRN PO UPSET STOMACH Last administered on 04/09/17 23:32; Admin Dose 1,000 MG; Start 04/03/17 at 17:30 Atorvastatin Calcium (Lipitor) 10 mg DAILY@21 PO Last administered on 20:57; Admin Dose 10 MG; Start 04/03/17 at 21:00 Miscellaneous Information 1 ea NOTE XX ; Start 04/03/17 at 16:00 Glucose (Glutose) 15 gm Q15M PRN PO DECREASED GLUCOSE; Start 04/03/17 at 16:00 Glucose (Glutose) 22.5 gm Q15M PRN PO DECREASED GLUCOSE; Start 04/03/17 at 16: 00 Dextrose (D50w Syringe) 25 ml Q15M PRN IV DECREASED GLUCOSE Last administered on 04/06/17 02:53; Admin Dose 25 ML; Start 04/03/17 at 16:00 Dextrose (D50w Syringe) 50 ml Q15M PRN IV DECREASED GLUCOSE; Start 04/03/17 at 16:00 Glucagon (Glucagen) 1 mg Q15M PRN IM DECREASED GLUCOSE; Start 04/03/17 at 16:00 Glucose (Glutose) 15 gm Q15M PRN BUCCAL DECREASED GLUCOSE; Start 04/03/17 at 16 :00 Ondansetron HCl (Zofran Inj) 4 mg Q6H PRN IV NAUSEA AND/OR VOMITING Last administered on 04/07/17 14:49; Admin Dose 4 MG; Start 04/03/17 at 17:30 Phenol (Cepastat Lozenge) 1 lozenge PRN PRN MT SORE THROAT Last administered on 04/10/17 03:41; Admin Dose 5 LOZENGE; Start 04/03/17 at 17:30 Prednisone (Prednisone) 5 mg DAILY PO Last administered on 04/09/17 08:44; Admin Dose 5 MG; Start 04/04/17 at 09:00 Enoxaparin Sodium (Lovenox) 30 mg DAILY SC Last administered on 04/09/17 08:46 ; Admin Dose 30 MG; Start 04/05/17 at 09:00 Levothyroxine Sodium (Synthroid) 100 mcg DAILY@06 PO Last administered on 07:01; Admin Dose 100 MCG; Start 04/05/17 at 06:00 Acetaminophen/ Hydrocodone Bitart ([place] (5/325)) Give for pain Q4H PRN PO PAIN LEVEL 1-3 Last administered on 04/05/17 20:57; Admin Dose 1 TAB; Start at 09:30 Hydromorphone HCl (Dilaudid) 0.5 mg Q4H PRN IV PAIN Last administered on 14:28; Admin Dose 0.5 MG; Start 04/05/17 at 09:30 Acetaminophen/ Hydrocodone Bitart ([place] (5/325)) 2 tab Q4H PRN PO PAIN Last administered on 04/06/17 14:36; Admin Dose 2 TAB; Start 04/06/17 at 01:25 Insulin Glargine (Lantus) 12 unit QHS SC ; Start 04/06/17 at 21:00; Status Future Hold Pantoprazole 40 mg 40 mg BID@06,18 IV Last administered on 04/10/17 05:20; Admin Dose 40 MG; Start 04/06/17 at 18:00 Potassium Chloride/Dextrose/ Sod Cl (D5-1/2ns + KCl 20 Meq) 1,000 ml @ 100 mls/ hr Q10H IV Last administered on 04/10/17 03:41; Admin Dose 100 MLS/HR; Start 04/06/17 at 10:32 Hydromorphone HCl (Dilaudid) 1 mg Q4H PRN IV PAIN Last administered on 05:27; Admin Dose 1 MG; Start 04/07/17 at 00:00 Hydralazine HCl (Apresoline) 10 mg Q4H PRN IV SBP>160; Start 04/07/17 at 14:00 Insulin Aspart (Novolog Insulin Pen) (Adult SC Insulin - Mild Algorithm)... Q4 SC Last administered on 04/09/17 21:13; Admin Dose 1 UNIT; Start 04/07/17 at 17:00 Ketorolac Tromethamine 15 mg 15 mg Q6H PRN IV PAIN Last administered on 02:30; Admin Dose 15 MG; Start 04/07/17 at 19:30; Stop 04/10/17 at 19:29 Acetaminophen (Ofirmev 1000mg/ 100ml Iv) 100 ml @ 400 mls/hr Q8H IVPB Last administered on 04/10/17 04:05; Admin Dose 400 MLS/HR; Start 04/09/17 at 21:00 MOY BACON M.D. Apr 10, 2017 08:51
[2017-04-10] MEDS: predniSONE 5 MG TAB PO SCH (09:00)
[2017-04-10] MEDS: MAGNESIUM OXIDE 400 MG TAB PO SCH ×2 (09:00→21:02)
[2017-04-10] MEDS: ATENOLOL 25 MG TAB PO SCH (09:00)
[2017-04-10] MEDS: DULOXETINE 30 MG CAP DR PO SCH ×2 (09:00→21:07)
[2017-04-10] MEDS ORDERED: MAGNESIUM SULFATE 4 GM/100 ML 100 ML IVPB ONE (09:00)
[2017-04-10] MEDS: PAROXETINE 20 MG TAB PO SCH (09:00)
[2017-04-10] MEDS: DEXTROSE 5%-0.9% NACL 1,000 ML IV SCH (09:10)
[2017-04-10] MEDS: METOCLOPRAMIDE 10 MG INJ IV SCH ×3 (09:10→18:14)
--- NOTE | 2017-04-10 09:15 | CONS ---
Date/Time of Note Date/Time of Note DATE: 04/10/17 TIME: 09:06 Assessment/Plan Assessment/Plan Chief Complaint/Hosp Course 62-year-old female who was brought by her surgeon for elective sigmoid resection with possible takedown of colostomy, cystoscopy with ureteral stent/ catheter placement. 1.History of diverticular abscess/diverticulitis and rectovaginal fistula. -Status post Open sigmoidectomy WITH Cystoscopy and insertion of bilateral ureteral catheters. POD#6. -Post op anticoagulation, pain control and abx per surgery. 2. Possible postoperative ileus. S/p NG tube placement on suction. Clinically improving. -Plan is to clamp NGt and DC later today. If f/u KUB normal, diet per surgery. -Continue IV Reglan,antiemetics PRN. -Continue IVFs, PPI 3. DMII. pt is NPO -At this time, we recommend holding all insulin and continuation of dextrose containing IVfs until she tolerates solids to maintain euglycemia. -Once she tolerates solids, Plan is to resume min dose Lantus 12 units HS with ISS once her blood sugar remained stable over next 24hrs without hypoglycemic events and titrate by 15-20% as needed. -Carbohydrate controlled diet 4.Essential hypertension. Stable. -Continue home medications 5. Hypercholesterolemia. -Continue statin 6. Chronic anemia. HH dropped likely dilutional vs postoperative. -Check HH, stool studies,iron studies. 7. Arthritis. -Continue home medications. 8. Hypothyroidism. -Patient with low TSH and high end of T4 levels. Continue adjusted dose of Synthroid 100 mcg-hoping patient able to tolerate PO today-If not, will start IV Synthroid in AM. -Needs outpatient repeat labs in 6 weeks 9.History of exploratory laparotomy, I and D of pelvic abscess and diverting colostomy. 10. Hypokalemia 2/2 GI loss.Resolved. -Stop KCL in IVFs 11. Hypomagnesemia. replete and monitor. 12.Hyponatremia,Mild. -Change IV to D5NS. 13. Tobacco use. -Cessation advised. DVT prophylaxis: Per surgery PUD prophylaxis: Pepcid. Plan: for possible Ngt discontinuation. F/u imaging studies thereafter and if stable, start diet per surgery. If patient with persistent ileus, plan is central line insertion and TPN. Encourage incentive spirometry, and ambulation. Continue post op management. Patient was seen in collaboration with Problems: Consultation Date/Type/Reason Admit Date/Time Apr 03, 2017 at 10:32 Initial Consult Date 04/03/17 Type of Consultation: Internal medicine Referring Provider: MOY BACON M.D. 24 HR Interval Summary Free Text/Dictation Patient with NG-tube clamped.Denies nausea. Afebrile.Passing flatus.Ostomy draining stool. Exam/Review of Systems Vital Signs Vitals Vital Signs Date Time Temp Pulse Resp B/P Pulse Ox O2 Delivery O2 Flow Rate FiO2 04/10/17 08:21 74 18 94 21 04/10/17 08:16 97.8 109/57 Room Air 04/09/17 01:29 2.0 Intake and Output 04/09/17 04/09/17 04/10/17 15:00 23:00 07:00 Intake Total 1050 ml 550 ml Output Total 1250 ml 1050 ml Balance -200 ml -500 ml Exam General: Well developed,adequately built, not in any acute distress . HEENT: Normocephalic, Atraumatic, No laceration or hematoma; Eyes: PEERL, Conjunctiva clear, Anicteric sclera Neck: Supple without any lymphadenopathy, nontender, no JVD, no carotid bruits, trachea midline, no thyromegaly Cardiac: S1, S2 auscultated, regular rhythm and rate, no mumurs or gallop Pulmonary: Normal respiratory effort. Chest clear to auscultation bilaterally, no adventitious breath sounds GI: NGtube clamped.Left upper quadrant colostomy bag draining stool. +Nausea/ vomiting. Stoma intact. Otherwise, abdomen normal to inspection. Soft, non tender, non- distended, no masses, no rebound tenderness or guarding. Bowel sounds active on all four quadrants Genitourinary: Deferred Extremities: No cyanosis, clubbing, or edema. Pulses [2+] bilaterally. Full ROM on all four extremities. No focal weakness appreciated. Neurologic: Alert to person, place, time, and situation. Affect appropriate, intact sensation. Skin: Clean,dry, and intact. No ecchymosis, no rashes, or lesions Results Result Diagram: 04/10/17 0426 04/10/17 0426 Results 24 hrs Laboratory Tests Test 04/09/17 13:47 04/09/17 17:10 10/8/17 21:09 04/10/17 00:58 Bedside Glucose 155 149 147 134 Test 04/10/17 04:26 04/10/17 05:19 04/10/17 07:06 04/10/17 08:45 White Blood Count 7.4 Red Blood Count 2.73 L Hemoglobin 7.9 L Hematocrit 25.6 L Mean Corpuscular Volume 93.8 Mean Corpuscular Hemoglobin 28.9 L Mean Corpuscular Hemoglobin Concent 30.9 L Red Cell Distribution Width 14.3 Platelet Count 386 Mean Platelet Volume 8.2 Neutrophils % 70.4 Lymphocytes % 19.2 Monocytes % 7.9 Eosinophils % 1.1 Basophils % 0.3 Nucleated Red Blood Cells % 0.0 Neutrophils # 5.2 Lymphocytes # 1.4 Monocytes # 0.6 Eosinophils # 0.1 Basophils # 0.0 Nucleated Red Blood Cells # 0.0 Prothrombin Time 15.4 H Prothrombin Time Ratio 1.2 INR International Normalized Ratio 1.21 Activated Partial Thromboplast Time 36.0 H Sodium Level 134 L Potassium Level 3.8 Chloride Level 105 Carbon Dioxide Level 26 Anion Gap 7 L Blood Urea Nitrogen 6 L Creatinine 0.47 Glucose Level 129 # Calcium Level 8.2 L Phosphorus Level 3.4 Magnesium Level 1.4 L Total Bilirubin 0.0 L Direct Bilirubin 0.00 Indirect Bilirubin 0.0 Aspartate Amino Transf (AST/SGOT) 15 Alanine Aminotransferase (ALT/SGPT) 29 Alkaline Phosphatase 174 H Total Protein 5.5 L Albumin 2.4 L Globulin 3.10 Albumin/Globulin Ratio 0.77 Bedside Glucose 134 180 Lab Scanned Report REFERENCE LAB Medications Medications Current Medications Atenolol (Tenormin) 25 mg DAILY PO Last administered on 04/09/17 08:43; Admin Dose 25 MG; Start 04/04/17 at 09:00 Cyclobenzaprine HCl (Flexeril) 5 mg Q6H PRN PO PAIN; Start 04/03/17 at 15:30 Duloxetine HCl (Cymbalta) 60 mg BID PO Last administered on 04/09/17 08:37; Admin Dose 60 MG; Start 04/03/17 at 21:00 Ergocalciferol (Drisdol) 50,000 unit QMONDAY PO ; Start 04/03/17 at 17:00 Magnesium Oxide (Mag-Ox 400) 400 mg BID PO Last administered on 04/09/17 08:38 ; Admin Dose 400 MG; Start 04/03/17 at 21:00 Paroxetine HCl (Paxil) 40 mg DAILY PO Last administered on 04/09/17 08:38; Admin Dose 40 MG; Start 04/04/17 at 09:00 Calcium Carbonate (Tums) 1,000 mg Q4H PRN PO UPSET STOMACH Last administered on 04/09/17 23:32; Admin Dose 1,000 MG; Start 04/03/17 at 17:30 Atorvastatin Calcium (Lipitor) 10 mg DAILY@21 PO Last administered on 20:57; Admin Dose 10 MG; Start 04/03/17 at 21:00 Miscellaneous Information 1 ea NOTE XX ; Start 04/03/17 at 16:00 Glucose (Glutose) 15 gm Q15M PRN PO DECREASED GLUCOSE; Start 04/03/17 at 16:00 Glucose (Glutose) 22.5 gm Q15M PRN PO DECREASED GLUCOSE; Start 04/03/17 at 16: 00 Dextrose (D50w Syringe) 25 ml Q15M PRN IV DECREASED GLUCOSE Last administered on 04/06/17 02:53; Admin Dose 25 ML; Start 04/03/17 at 16:00 Dextrose (D50w Syringe) 50 ml Q15M PRN IV DECREASED GLUCOSE; Start 04/03/17 at 16:00 Glucagon (Glucagen) 1 mg Q15M PRN IM DECREASED GLUCOSE; Start 04/03/17 at 16:00 Glucose (Glutose) 15 gm Q15M PRN BUCCAL DECREASED GLUCOSE; Start 04/03/17 at 16 :00 Ondansetron HCl (Zofran Inj) 4 mg Q6H PRN IV NAUSEA AND/OR VOMITING Last administered on 04/07/17 14:49; Admin Dose 4 MG; Start 04/03/17 at 17:30 Phenol (Cepastat Lozenge) 1 lozenge PRN PRN MT SORE THROAT Last administered on 04/10/17 03:41; Admin Dose 5 LOZENGE; Start 04/03/17 at 17:30 Prednisone (Prednisone) 5 mg DAILY PO Last administered on 04/09/17 08:44; Admin Dose 5 MG; Start 04/04/17 at 09:00 Enoxaparin Sodium (Lovenox) 30 mg DAILY SC Last administered on 04/09/17 08:46 ; Admin Dose 30 MG; Start 04/05/17 at 09:00 Levothyroxine Sodium (Synthroid) 100 mcg DAILY@06 PO Last administered on 07:01; Admin Dose 100 MCG; Start 04/05/17 at 06:00 Acetaminophen/ Hydrocodone Bitart ([place] (5/325)) Give for pain Q4H PRN PO PAIN LEVEL 1-3 Last administered on 04/05/17 20:57; Admin Dose 1 TAB; Start at 09:30 Hydromorphone HCl (Dilaudid) 0.5 mg Q4H PRN IV PAIN Last administered on 14:28; Admin Dose 0.5 MG; Start 04/05/17 at 09:30 Acetaminophen/ Hydrocodone Bitart ([place] (5/325)) 2 tab Q4H PRN PO PAIN Last administered on 04/06/17 14:36; Admin Dose 2 TAB; Start 04/06/17 at 01:25 Insulin Glargine (Lantus) 12 unit QHS SC ; Start 04/06/17 at 21:00; Status Future Hold Pantoprazole 40 mg 40 mg BID@06,18 IV Last administered on 04/10/17 05:20; Admin Dose 40 MG; Start 04/06/17 at 18:00 Potassium Chloride/Dextrose/ Sod Cl (D5-1/2ns + KCl 20 Meq) 1,000 ml @ 100 mls/ hr Q10H IV Last administered on 04/10/17 03:41; Admin Dose 100 MLS/HR; Start 04/06/17 at 10:32 Hydromorphone HCl (Dilaudid) 1 mg Q4H PRN IV PAIN Last administered on 05:27; Admin Dose 1 MG; Start 04/07/17 at 00:00 Hydralazine HCl (Apresoline) 10 mg Q4H PRN IV SBP>160; Start 04/07/17 at 14:00 Insulin Aspart (Novolog Insulin Pen) (Adult SC Insulin - Mild Algorithm)... Q4 SC Last administered on 04/09/17 21:13; Admin Dose 1 UNIT; Start 04/07/17 at 17:00 Ketorolac Tromethamine 15 mg 15 mg Q6H PRN IV PAIN Last administered on 02:30; Admin Dose 15 MG; Start 04/07/17 at 19:30; Stop 04/10/17 at 19:29 Acetaminophen (Ofirmev 1000mg/ 100ml Iv) 100 ml @ 400 mls/hr Q8H IVPB Last administered on 04/10/17 04:05; Admin Dose 400 MLS/HR; Start 04/09/17 at 21:00 MANE MATA NP Apr 10, 2017 09:15
[2017-04-10] MEDS: ENOXAPARIN 30 MG/0.3 ML SYG SC SCH (09:17)
[2017-04-10 10:23] LABS: IRON 11 ug/dl (35-150)
[2017-04-10 10:33] LABS: TOTAL IRON BINDING CAPACITY 207 ug/dl (241-421)
[2017-04-10 19:28] VITALS: BP 141/63; RESP 18
[2017-04-10] MEDS: ATORVASTATIN 10 MG TAB PO SCH (21:02)
[2017-04-11] MEDS: METOCLOPRAMIDE 10 MG INJ IV SCH ×5 (00:14→23:06)
[2017-04-11] MEDS: DEXTROSE 5%-0.9% NACL 1,000 ML IV SCH ×2 (00:14→20:45)
[2017-04-11] MEDS ORDERED: ACCU-CHEK XX SCH (02:00)
[2017-04-11] MEDS: HYDROmorphONE 1 MG/ML SYG IV PRN ×4 (02:02→17:54)
[2017-04-11] MEDS: ALBUTEROL/IPRATROPIUM (NEB) 3 ML AMP HHN SCH ×4 (02:06→19:32)
[2017-04-11] MEDS: ACCU-CHEK XX SCH (02:06)
[2017-04-11 02:21] VITALS: BP 140/67; RESP 18
[2017-04-11] MEDS: ACETAMINOPHEN 1000MG/100ML IV 100 ML IVPB SCH ×3 (04:59→20:44)
[2017-04-11 05:46] LABS: BASOPHILS % 0.4 % (0.0-2.0); EOSINOPHILS % 0.4 % (0.0-7.0); HEMATOCRIT 28.2 % (37.0-47.0); HEMOGLOBIN 8.9 g/dl (12.0-16.0); LYMPHOCYTES # 1.1 10^3/ul (0.8-2.9); LYMPHOCYTES % 14.4 % (15.0-51.0); MEAN CORPUSCULAR HEMOGLOBIN 29.7 pg (29.0-33.0); MEAN CORPUSCULAR HGB CONC 31.6 g/dl (32.0-37.0); MEAN PLATELET VOLUME 8.2 fl (7.4-10.4); MONOCYTE # 0.5 10^3/ul (0.3-0.9); MONOCYTES % 5.7 % (0.0-11.0); NEUTROPHIL # 6.2 10^3/ul (1.6-7.5); NEUTROPHILS % 78.3 % (39.0-77.0); PLATELET COUNT 436 10^3/UL (140-415); RED CELL DISTRIBUTION WIDTH 14.5 % (11.5-14.5); WHITE BLOOD COUNT 7.9 10^3/ul (4.8-10.8)
[2017-04-11] MEDS: PANTOPRAZOLE 40 MG INJ IV SCH ×2 (06:02→17:55)
[2017-04-11] MEDS: LEVOTHYROXINE 100 MCG TAB PO SCH (06:02)
[2017-04-11 06:35] LABS: CALCIUM 8.1 mg/dl (8.4-10.2); CREATININE 0.41 mg/dl (0.44-1.00); POTASSIUM 3.4 mmol/L (3.5-5.1)
[2017-04-11 07:52] VITALS: BP 123/70; RESP 18
[2017-04-11 08:14] VITALS: BP 126/61; RESP 17
--- NOTE | 2017-04-11 08:48 | PN ---
Date/Time of Note Date/Time of Note DATE: 04/11/17 TIME: 08:46 Assessment/Plan VTE Prophylaxis VTE Prophylaxis Intervention: ambulation, LMWH, SCD's Lines/Catheters IV Catheter Type (from Nrs): Peripheral IV Urinary Cath still in place: No Assessment/Plan Chief Complaint/Hosp Course 62YO Woman h/o diverticulitis, s/p diverting loop colostomy, now s/p open sigmoid resection POD8.. NGT fell out and pt has tolerated some clears since. No F/C/CP/SOB/NV this AM. Plan is to advance diet as tolerated, D/C IVF if tolerating PO. OOB. Can start home meds per medical team. Stop IV Tylenol as pt should be on [place] now. Hopeful D/C in ~ 1-2 days. Problems: Subjective 24 Hr Interval Summary Constitutional: no complaints Respiratory: no complaints Cardiovascular: no complaints Gastrointestinal: pain Exam/Review of Systems Vital Signs Vitals Vital Signs Date Time Temp Pulse Resp B/P Pulse Ox O2 Delivery O2 Flow Rate FiO2 04/11/17 08:14 97.8 72 17 126/61 95 04/11/17 02:06 21 04/10/17 08:16 Room Air 04/09/17 01:29 2.0 Intake and Output 04/10/17 04/10/17 04/11/17 15:00 23:00 07:00 Intake Total 400 ml 1200 ml 800 ml Output Total 650 ml 1100 ml Balance 400 ml 550 ml -300 ml Exam Constitutional: alert Respiratory: crackles/rales (mild B/L bases) Cardiovascular: regular rate and rhythm Gastrointestinal: soft (mildly TTP, ND, wound C/D/I, stoma pink with stool in bag) Results Result Diagram: 04/11/17 0508 04/11/17 0508 Results 24 hrs Laboratory Tests Test 04/10/17 12:24 04/10/17 12:35 04/10/17 18:00 04/10/17 21:09 Bedside Glucose 178 126 164 Stool Occult Blood NEGATIVE Test 04/11/17 02:00 04/11/17 05:08 Bedside Glucose 134 White Blood Count 7.9 Red Blood Count 3.00 L Hemoglobin 8.9 L Hematocrit 28.2 L Mean Corpuscular Volume 94.0 Mean Corpuscular Hemoglobin 29.7 Mean Corpuscular Hemoglobin Concent 31.6 L Red Cell Distribution Width 14.5 Platelet Count 436 H Mean Platelet Volume 8.2 Neutrophils % 78.3 H Lymphocytes % 14.4 L Monocytes % 5.7 Eosinophils % 0.4 Basophils % 0.4 Nucleated Red Blood Cells % 0.0 Neutrophils # 6.2 Lymphocytes # 1.1 Monocytes # 0.5 Eosinophils # 0.0 Basophils # 0.0 Nucleated Red Blood Cells # 0.0 Sodium Level 139 Potassium Level 3.4 L Chloride Level 106 Carbon Dioxide Level 26 Anion Gap 10 Blood Urea Nitrogen 3 L Creatinine 0.41 L Glucose Level 157 Calcium Level 8.1 L Magnesium Level 1.6 L Medications Medications Current Medications Atenolol (Tenormin) 25 mg DAILY PO Last administered on 04/09/17 08:43; Admin Dose 25 MG; Start 04/04/17 at 09:00 Cyclobenzaprine HCl (Flexeril) 5 mg Q6H PRN PO PAIN; Start 04/03/17 at 15:30 Duloxetine HCl (Cymbalta) 60 mg BID PO Last administered on 04/10/17 21:07; Admin Dose 60 MG; Start 04/03/17 at 21:00 Ergocalciferol (Drisdol) 50,000 unit QMONDAY PO ; Start 04/03/17 at 17:00 Magnesium Oxide (Mag-Ox 400) 400 mg BID PO Last administered on 04/10/17 21:02 ; Admin Dose 400 MG; Start 04/03/17 at 21:00 Paroxetine HCl (Paxil) 40 mg DAILY PO Last administered on 04/09/17 08:38; Admin Dose 40 MG; Start 04/04/17 at 09:00 Calcium Carbonate (Tums) 1,000 mg Q4H PRN PO UPSET STOMACH Last administered on 04/09/17 23:32; Admin Dose 1,000 MG; Start 04/03/17 at 17:30 Atorvastatin Calcium (Lipitor) 10 mg DAILY@21 PO Last administered on 21:02; Admin Dose 10 MG; Start 04/03/17 at 21:00 Miscellaneous Information 1 ea NOTE XX ; Start 04/03/17 at 16:00 Glucose (Glutose) 15 gm Q15M PRN PO DECREASED GLUCOSE; Start 04/03/17 at 16:00 Glucose (Glutose) 22.5 gm Q15M PRN PO DECREASED GLUCOSE; Start 04/03/17 at 16: 00 Dextrose (D50w Syringe) 25 ml Q15M PRN IV DECREASED GLUCOSE Last administered on 04/06/17 02:53; Admin Dose 25 ML; Start 04/03/17 at 16:00 Dextrose (D50w Syringe) 50 ml Q15M PRN IV DECREASED GLUCOSE; Start 04/03/17 at 16:00 Glucagon (Glucagen) 1 mg Q15M PRN IM DECREASED GLUCOSE; Start 04/03/17 at 16:00 Glucose (Glutose) 15 gm Q15M PRN BUCCAL DECREASED GLUCOSE; Start 04/03/17 at 16 :00 Ondansetron HCl (Zofran Inj) 4 mg Q6H PRN IV NAUSEA AND/OR VOMITING Last administered on 04/07/17 14:49; Admin Dose 4 MG; Start 04/03/17 at 17:30 Phenol (Cepastat Lozenge) 1 lozenge PRN PRN MT SORE THROAT Last administered on 04/10/17 03:41; Admin Dose 5 LOZENGE; Start 04/03/17 at 17:30 Prednisone (Prednisone) 5 mg DAILY PO Last administered on 04/09/17 08:44; Admin Dose 5 MG; Start 04/04/17 at 09:00 Enoxaparin Sodium (Lovenox) 30 mg DAILY SC Last administered on 04/10/17 09:17 ; Admin Dose 30 MG; Start 04/05/17 at 09:00 Levothyroxine Sodium (Synthroid) 100 mcg DAILY@06 PO Last administered on 04/11 06:02; Admin Dose 100 MCG; Start 04/05/17 at 06:00 Acetaminophen/ Hydrocodone Bitart ([place] (5/325)) Give for pain Q4H PRN PO PAIN LEVEL 1-3 Last administered on 04/05/17 20:57; Admin Dose 1 TAB; Start at 09:30 Hydromorphone HCl (Dilaudid) 0.5 mg Q4H PRN IV PAIN Last administered on 14:28; Admin Dose 0.5 MG; Start 04/05/17 at 09:30 Acetaminophen/ Hydrocodone Bitart ([place] (5/325)) 2 tab Q4H PRN PO PAIN Last administered on 04/06/17 14:36; Admin Dose 2 TAB; Start 04/06/17 at 01:25 Insulin Glargine (Lantus) 12 unit QHS SC ; Start 04/06/17 at 21:00; Status Future Hold Pantoprazole (Protonix Iv) 40 mg BID@06,18 IV Last administered on 04/11/17 06:02; Admin Dose 40 MG; Start 04/06/17 at 18:00 Hydromorphone HCl (Dilaudid) 1 mg Q4H PRN IV PAIN Last administered on 06:02; Admin Dose 1 MG; Start 04/07/17 at 00:00 Hydralazine HCl 10 mg 10 mg Q4H PRN IV SBP>160; Start 04/07/17 at 14:00 Acetaminophen 100 ml @ 400 mls/hr Q8H IVPB Last administered on 04/11/17 04: 59; Admin Dose 400 MLS/HR; Start 04/09/17 at 21:00 Dextrose/Sodium Chloride (D5-NS) 1,000 ml @ 60 mls/hr [id number] IV Last administered on 04/11/17 00:14; Admin Dose 60 MLS/HR; Start 04/10/17 at 09:00 Metoclopramide HCl (Reglan) 10 mg Q6 IV Last administered on 04/11/17 06:02; Admin Dose 10 MG; Start 04/10/17 at 09:00 Diagnostic Test (Pha) (Accu-Chek) 1 ea 02 XX Last administered on 04/11/17 02 :06; Admin Dose 1 EA; Start 04/11/17 at 02:00 MOY BACON M.D. Apr 11, 2017 08:48
[2017-04-11] MEDS: DULOXETINE 30 MG CAP DR PO SCH ×2 (08:52→20:46)
[2017-04-11] MEDS: GABAPENTIN 100 MG CAP PO SCH (08:52)
[2017-04-11] MEDS: PAROXETINE 20 MG TAB PO SCH (08:53)
[2017-04-11] MEDS: MAGNESIUM OXIDE 400 MG TAB PO SCH ×2 (08:53→20:46)
[2017-04-11] MEDS: predniSONE 5 MG TAB PO SCH (08:53)
[2017-04-11] MEDS: ATENOLOL 25 MG TAB PO SCH (08:54)
[2017-04-11] MEDS: ENOXAPARIN 30 MG/0.3 ML SYG SC SCH (08:55)
[2017-04-11] MEDS: INSULIN ASPART [NOVOLOG] 3 ML PEN SC SCH ×4 (08:56→20:48)
[2017-04-11] MEDS: HYDROCODONE/APAP (5/325) TAB PO PRN ×2 (10:01→22:08)
[2017-04-11] MEDS ORDERED: POTASSIUM CHLORIDE (SR) 20 MEQ TAB PO STA (10:42)
--- NOTE | 2017-04-11 11:10 | CONS ---
Date/Time of Note Date/Time of Note DATE: 04/11/17 TIME: 10:56 Assessment/Plan Assessment/Plan Chief Complaint/Hosp Course 62-year-old female who was brought by her surgeon for elective sigmoid resection with possible takedown of colostomy, cystoscopy with ureteral stent/ catheter placement. 1.History of diverticular abscess/diverticulitis and rectovaginal fistula. -Status post Open sigmoidectomy WITH Cystoscopy and insertion of bilateral ureteral catheters. POD#8. -Post op anticoagulation, pain control and abx per surgery. 2. Possible postoperative ileus. Resolving. -Status post NG tube decompression. -Diet as [id number] with surgery recommendation on advancement. -Continue IV Reglan,PPI,antiemetics PRN. -Continue IVFs until patient is transitioned to solids. 3. DMII. Good glycemic control. -Continue Accu-Cheks and low-dose insulin sliding scale. Once patient has been transitioned to solids, will resume Lantus 12 units and titrate by 15-20% as needed. -Carbohydrate controlled diet 4.Essential hypertension. Stable. -Continue home medications 5. Hypercholesterolemia. -Continue statin 6. Acute iron deficient anemia on top of chronic anemia. HH improved today. -Start IV iron 3 followed by oral iron replacement. 7. Arthritis. -Continue home medications. 8. Hypothyroidism. -Patient with low TSH and high end of T4 levels. Continue adjusted dose of Synthroid 100 mcg -Needs outpatient repeat labs in 6 weeks 9.History of exploratory laparotomy, I and D of pelvic abscess and diverting colostomy. 10. Hypokalemia.Stable. -replete and needed 11. Hypomagnesemia. Continue repletion and monitor. 12. Tobacco use. -Cessation advised. DVT prophylaxis: Per surgery PUD prophylaxis: Pepcid. Plan: Overall, patient with improvement. Diet advancement per surgery. Hoping discharge in next 24-48 hours if patient able to transition to solids without any further symptoms. Recommend continuation of Synthroid 100 mcg upon discharge with repeat thyroid panel in 4 weeks for further adjustment. Encourage incentive spirometry, and ambulation. Continue post op management. Patient was seen in collaboration with Problems: Consultation Date/Type/Reason Admit Date/Time Apr 03, 2017 at 10:32 Initial Consult Date 04/03/17 Type of Consultation: Internal medicine Referring Provider: MOY BACON M.D. 24 HR Interval Summary Free Text/Dictation Status post NG tube removal. Patient is on clear diet which she is tolerating. No further nausea, vomiting or abdominal discomfort. Patient continues to have postoperative pain. She has been ambulated. Exam/Review of Systems Vital Signs Vitals Vital Signs Date Time Temp Pulse Resp B/P Pulse Ox O2 Delivery O2 Flow Rate FiO2 04/11/17 08:57 78 20 94 21 04/11/17 08:14 97.8 126/61 04/10/17 08:16 Room Air 04/09/17 01:29 2.0 Intake and Output 04/10/17 04/10/17 04/11/17 15:00 23:00 07:00 Intake Total 400 ml 1200 ml 800 ml Output Total 650 ml 1100 ml Balance 400 ml 550 ml -300 ml Exam General: Well developed,adequately built, not in any acute distress . HEENT: Normocephalic, Atraumatic, No laceration or hematoma; Eyes: PEERL, Conjunctiva clear, Anicteric sclera Neck: Supple without any lymphadenopathy, nontender, no JVD, no carotid bruits, trachea midline, no thyromegaly Cardiac: S1, S2 auscultated, regular rhythm and rate, no mumurs or gallop Pulmonary: Normal respiratory effort. Chest clear to auscultation bilaterally, no adventitious breath sounds GI:.Left upper quadrant colostomy bag draining stool. +Nausea/vomiting. Stoma intact. Otherwise, abdomen normal to inspection. Soft, non tender, non- distended, no masses, no rebound tenderness or guarding. Bowel sounds hypoactive on all four quadrants Genitourinary: Deferred Extremities: No cyanosis, clubbing, or edema. Pulses [2+] bilaterally. Full ROM on all four extremities. No focal weakness appreciated. Neurologic: Alert to person, place, time, and situation. Affect appropriate, intact sensation. Skin: Clean,dry, and intact. No ecchymosis, no rashes, or lesions Results Result Diagram: 04/11/17 0508 04/11/17 0508 Results 24 hrs Laboratory Tests Test 04/10/17 12:24 04/10/17 12:35 04/10/17 18:00 04/10/17 21:09 Bedside Glucose 178 126 164 Stool Occult Blood NEGATIVE Test 04/11/17 02:00 04/11/17 05:08 04/11/17 08:45 Bedside Glucose 134 163 White Blood Count 7.9 Red Blood Count 3.00 L Hemoglobin 8.9 L Hematocrit 28.2 L Mean Corpuscular Volume 94.0 Mean Corpuscular Hemoglobin 29.7 Mean Corpuscular Hemoglobin Concent 31.6 L Red Cell Distribution Width 14.5 Platelet Count 436 H Mean Platelet Volume 8.2 Neutrophils % 78.3 H Lymphocytes % 14.4 L Monocytes % 5.7 Eosinophils % 0.4 Basophils % 0.4 Nucleated Red Blood Cells % 0.0 Neutrophils # 6.2 Lymphocytes # 1.1 Monocytes # 0.5 Eosinophils # 0.0 Basophils # 0.0 Nucleated Red Blood Cells # 0.0 Sodium Level 139 Potassium Level 3.4 L Chloride Level 106 Carbon Dioxide Level 26 Anion Gap 10 Blood Urea Nitrogen 3 L Creatinine 0.41 L Glucose Level 157 Calcium Level 8.1 L Magnesium Level 1.6 L Medications Medications Current Medications Atenolol (Tenormin) 25 mg DAILY PO Last administered on 04/11/17 08:54; Admin Dose 25 MG; Start 04/04/17 at 09:00 Cyclobenzaprine HCl (Flexeril) 5 mg Q6H PRN PO PAIN; Start 04/03/17 at 15:30 Duloxetine HCl (Cymbalta) 60 mg BID PO Last administered on 04/11/17 08:52; Admin Dose 60 MG; Start 04/03/17 at 21:00 Ergocalciferol (Drisdol) 50,000 unit QMONDAY PO ; Start 04/03/17 at 17:00 Magnesium Oxide (Mag-Ox 400) 400 mg BID PO Last administered on 04/11/17 08: 53; Admin Dose 400 MG; Start 04/03/17 at 21:00 Paroxetine HCl (Paxil) 40 mg DAILY PO Last administered on 04/11/17 08:53; Admin Dose 40 MG; Start 04/04/17 at 09:00 Calcium Carbonate (Tums) 1,000 mg Q4H PRN PO UPSET STOMACH Last administered on 04/09/17 23:32; Admin Dose 1,000 MG; Start 04/03/17 at 17:30 Atorvastatin Calcium (Lipitor) 10 mg DAILY@21 PO Last administered on 21:02; Admin Dose 10 MG; Start 04/03/17 at 21:00 Miscellaneous Information 1 ea NOTE XX ; Start 04/03/17 at 16:00 Glucose (Glutose) 15 gm Q15M PRN PO DECREASED GLUCOSE; Start 04/03/17 at 16:00 Glucose (Glutose) 22.5 gm Q15M PRN PO DECREASED GLUCOSE; Start 04/03/17 at 16: 00 Dextrose (D50w Syringe) 25 ml Q15M PRN IV DECREASED GLUCOSE Last administered on 04/06/17 02:53; Admin Dose 25 ML; Start 04/03/17 at 16:00 Dextrose (D50w Syringe) 50 ml Q15M PRN IV DECREASED GLUCOSE; Start 04/03/17 at 16:00 Glucagon (Glucagen) 1 mg Q15M PRN IM DECREASED GLUCOSE; Start 04/03/17 at 16:00 Glucose (Glutose) 15 gm Q15M PRN BUCCAL DECREASED GLUCOSE; Start 04/03/17 at 16 :00 Ondansetron HCl (Zofran Inj) 4 mg Q6H PRN IV NAUSEA AND/OR VOMITING Last administered on 04/07/17 14:49; Admin Dose 4 MG; Start 04/03/17 at 17:30 Phenol (Cepastat Lozenge) 1 lozenge PRN PRN MT SORE THROAT Last administered on 04/10/17 03:41; Admin Dose 5 LOZENGE; Start 04/03/17 at 17:30 Prednisone (Prednisone) 5 mg DAILY PO Last administered on 04/11/17 08:53; Admin Dose 5 MG; Start 04/04/17 at 09:00 Enoxaparin Sodium (Lovenox) 30 mg DAILY SC Last administered on 04/11/17 08: 55; Admin Dose 30 MG; Start 04/05/17 at 09:00 Levothyroxine Sodium (Synthroid) 100 mcg DAILY@06 PO Last administered on 04/11 06:02; Admin Dose 100 MCG; Start 04/05/17 at 06:00 Acetaminophen/ Hydrocodone Bitart ([place] (5/325)) Give for pain Q4H PRN PO PAIN LEVEL 1-3 Last administered on 04/05/17 20:57; Admin Dose 1 TAB; Start at 09:30 Hydromorphone HCl (Dilaudid) 0.5 mg Q4H PRN IV PAIN Last administered on 14:28; Admin Dose 0.5 MG; Start 04/05/17 at 09:30 Acetaminophen/ Hydrocodone Bitart ([place] (5/325)) 2 tab Q4H PRN PO PAIN Last administered on 04/11/17 10:01; Admin Dose 2 TAB; Start 04/06/17 at 01:25 Insulin Glargine (Lantus) 12 unit QHS SC ; Start 04/06/17 at 21:00; Status Future Hold Pantoprazole (Protonix Iv) 40 mg BID@06,18 IV Last administered on 04/11/17 06:02; Admin Dose 40 MG; Start 04/06/17 at 18:00 Hydromorphone HCl (Dilaudid) 1 mg Q4H PRN IV PAIN Last administered on 06:02; Admin Dose 1 MG; Start 04/07/17 at 00:00 Hydralazine HCl 10 mg 10 mg Q4H PRN IV SBP>160; Start 04/07/17 at 14:00 Acetaminophen 100 ml @ 400 mls/hr Q8H IVPB Last administered on 04/11/17 04: 59; Admin Dose 400 MLS/HR; Start 04/09/17 at 21:00 Dextrose/Sodium Chloride (D5-NS) 1,000 ml @ 50 mls/hr Q20H IV Last administered on 04/11/17 00:14; Admin Dose 60 MLS/HR; Start 04/10/17 at 09:00 Metoclopramide HCl (Reglan) 10 mg Q6 IV Last administered on 04/11/17 06:02; Admin Dose 10 MG; Start 04/10/17 at 09:00 Diagnostic Test (Pha) (Accu-Chek) 1 ea 02 XX Last administered on 04/11/17 02 :06; Admin Dose 1 EA; Start 04/11/17 at 02:00 MANE MATA NP Apr 11, 2017 11:09
[2017-04-11] MEDS ORDERED: MAGNESIUM SULFATE 2 GM/50 ML 50 ML IVPB SCH (12:00)
[2017-04-11] MEDS: SOD FERRIC GLUC COMPLX 125 MG in SOD CHLORIDE 0.9% 100 ML IVPB SCH (14:12)
[2017-04-11 14:32] VITALS: BP 119/58; RESP 18
[2017-04-11 20:31] VITALS: BP 117/55; RESP 18
[2017-04-11] MEDS: ATORVASTATIN 10 MG TAB PO SCH (20:46)
[2017-04-12] MEDS: HYDROCODONE/APAP (5/325) TAB PO PRN ×4 (01:57→14:13)
[2017-04-12] MEDS: ACCU-CHEK XX SCH (02:00)
[2017-04-12] MEDS: ALBUTEROL/IPRATROPIUM (NEB) 3 ML AMP HHN SCH ×3 (02:14→14:42)
[2017-04-12 02:18] VITALS: BP 141/64; RESP 18
[2017-04-12] MEDS: METOCLOPRAMIDE 10 MG INJ IV SCH ×2 (05:32→12:29)
[2017-04-12] MEDS: PANTOPRAZOLE 40 MG INJ IV SCH (05:32)
[2017-04-12] MEDS: ACETAMINOPHEN 1000MG/100ML IV 100 ML IVPB SCH ×2 (05:32→12:30)
[2017-04-12] MEDS: LEVOTHYROXINE 100 MCG TAB PO SCH (05:32)
[2017-04-12 05:50] LABS: BASOPHILS % 0.3 % (0.0-2.0); EOSINOPHILS % 0.7 % (0.0-7.0); HEMATOCRIT 27.9 % (37.0-47.0); HEMOGLOBIN 8.6 g/dl (12.0-16.0); LYMPHOCYTES # 1.4 10^3/ul (0.8-2.9); LYMPHOCYTES % 23.6 % (15.0-51.0); MEAN CORPUSCULAR HEMOGLOBIN 28.7 pg (29.0-33.0); MEAN CORPUSCULAR HGB CONC 30.8 g/dl (32.0-37.0); MEAN PLATELET VOLUME 8.1 fl (7.4-10.4); MONOCYTE # 0.5 10^3/ul (0.3-0.9); MONOCYTES % 7.8 % (0.0-11.0); NEUTROPHIL # 3.9 10^3/ul (1.6-7.5); NEUTROPHILS % 66.6 % (39.0-77.0); PLATELET COUNT 487 10^3/UL (140-415); RED CELL DISTRIBUTION WIDTH 14.4 % (11.5-14.5); WHITE BLOOD COUNT 5.9 10^3/ul (4.8-10.8)
[2017-04-12 06:27] LABS: CALCIUM 8.3 mg/dl (8.4-10.2); CREATININE 0.4 mg/dl (0.44-1.00); POTASSIUM 3.5 mmol/L (3.5-5.1)
[2017-04-12] MEDS: INSULIN ASPART [NOVOLOG] 3 ML PEN SC SCH ×2 (07:50→11:40)
[2017-04-12 08:00] VITALS: BP 116/56; RESP 16
--- NOTE | 2017-04-12 08:40 | PN ---
Date/Time of Note Date/Time of Note DATE: 04/12/17 TIME: 08:36 Assessment/Plan VTE Prophylaxis VTE Prophylaxis Intervention: ambulation, LMWH, SCD's Lines/Catheters IV Catheter Type (from Nrs): Peripheral IV Urinary Cath still in place: No Assessment/Plan Chief Complaint/Hosp Course [id number] Woman h/o diverticulitis, s/p diverting loop colostomy, now s/p open sigmoid resection POD9. Pt doing very well, tolerating PO, having stoma function. VS OK. Labs OK. On exam, appears well, abdomen soft, ND, stoma with stool and gas in bag. Wound C/D/I. Advancing to soft diet. D/C IVF if tolerating PO. If pt tolerates diet and does not have fever or other issues, should be able to go to rehab/home this evening. Discussed postop plan - should see me in ~ 1 week for staple removal. Will do GGE in ~ 4-5 weeks to assess anastomosis. Told pt to call 911 if F/C/bilious emesis/severe abd pain/ abd distention. Call office if signs of wound infection. Home meds per IM. Will be in hospital later for D/C paperwork if pt OK to go. Problems: Subjective 24 Hr Interval Summary Constitutional: improved Respiratory: no complaints Cardiovascular: no complaints Gastrointestinal: pain (improved) Exam/Review of Systems Vital Signs Vitals Vital Signs Date Time Temp Pulse Resp B/P Pulse Ox O2 Delivery O2 Flow Rate FiO2 04/12/17 08:00 97.5 61 16 116/56 94 04/12/17 02:14 21 04/10/17 08:16 Room Air 04/09/17 01:29 2.0 Intake and Output 04/11/17 04/11/17 04/12/17 15:00 23:00 07:00 Intake Total 150 ml 1780 ml 1100 ml Output Total 800 ml 600 ml Balance 150 ml 980 ml 500 ml Exam Constitutional: alert, oriented Respiratory: clear to auscultation Cardiovascular: regular rate and rhythm Gastrointestinal: soft (Mildly TTP, stoma pink with stool and gas in bag, wound C/D/I) Results Result Diagram: 04/12/17 0511 04/12/17 0511 Results 24 hrs Laboratory Tests Test 04/11/17 08:45 04/11/17 12:35 04/11/17 17:57 04/11/17 20:47 Bedside Glucose 163 180 168 124 Test 04/12/17 05:11 White Blood Count 5.9 # Red Blood Count 3.00 L Hemoglobin 8.6 L Hematocrit 27.9 L Mean Corpuscular Volume 93.0 Mean Corpuscular Hemoglobin 28.7 L Mean Corpuscular Hemoglobin Concent 30.8 L Red Cell Distribution Width 14.4 Platelet Count 487 H Mean Platelet Volume 8.1 Neutrophils % 66.6 Lymphocytes % 23.6 Monocytes % 7.8 Eosinophils % 0.7 Basophils % 0.3 Nucleated Red Blood Cells % 0.0 Neutrophils # 3.9 Lymphocytes # 1.4 Monocytes # 0.5 Eosinophils # 0.0 Basophils # 0.0 Nucleated Red Blood Cells # 0.0 Sodium Level 139 Potassium Level 3.5 Chloride Level 108 Carbon Dioxide Level 27 Anion Gap 8 Blood Urea Nitrogen 3 L Creatinine 0.40 L Glucose Level 98 # Calcium Level 8.3 L Magnesium Level 1.6 L Medications Medications Current Medications Atenolol (Tenormin) 25 mg DAILY PO Last administered on 04/11/17 08:54; Admin Dose 25 MG; Start 04/04/17 at 09:00 Cyclobenzaprine HCl (Flexeril) 5 mg Q6H PRN PO PAIN Last administered on 23:03; Admin Dose 5 MG; Start 04/03/17 at 15:30 Duloxetine HCl (Cymbalta) 60 mg BID PO Last administered on 04/11/17 20:46; Admin Dose 60 MG; Start 04/03/17 at 21:00 Ergocalciferol (Drisdol) 50,000 unit QMONDAY PO ; Start 04/03/17 at 17:00 Magnesium Oxide (Mag-Ox 400) 400 mg BID PO Last administered on 04/11/17 20: 46; Admin Dose 400 MG; Start 04/03/17 at 21:00 Paroxetine HCl (Paxil) 40 mg DAILY PO Last administered on 04/11/17 08:53; Admin Dose 40 MG; Start 04/04/17 at 09:00 Calcium Carbonate (Tums) 1,000 mg Q4H PRN PO UPSET STOMACH Last administered on 04/09/17 23:32; Admin Dose 1,000 MG; Start 04/03/17 at 17:30 Atorvastatin Calcium (Lipitor) 10 mg DAILY@21 PO Last administered on 20:46; Admin Dose 10 MG; Start 04/03/17 at 21:00 Miscellaneous Information 1 ea NOTE XX ; Start 04/03/17 at 16:00 Glucose (Glutose) 15 gm Q15M PRN PO DECREASED GLUCOSE; Start 04/03/17 at 16:00 Glucose (Glutose) 22.5 gm Q15M PRN PO DECREASED GLUCOSE; Start 04/03/17 at 16: 00 Dextrose (D50w Syringe) 25 ml Q15M PRN IV DECREASED GLUCOSE Last administered on 04/06/17 02:53; Admin Dose 25 ML; Start 04/03/17 at 16:00 Dextrose (D50w Syringe) 50 ml Q15M PRN IV DECREASED GLUCOSE; Start 04/03/17 at 16:00 Glucagon (Glucagen) 1 mg Q15M PRN IM DECREASED GLUCOSE; Start 04/03/17 at 16:00 Glucose (Glutose) 15 gm Q15M PRN BUCCAL DECREASED GLUCOSE; Start 04/03/17 at 16 :00 Ondansetron HCl (Zofran Inj) 4 mg Q6H PRN IV NAUSEA AND/OR VOMITING Last administered on 04/07/17 14:49; Admin Dose 4 MG; Start 04/03/17 at 17:30 Phenol (Cepastat Lozenge) 1 lozenge PRN PRN MT SORE THROAT Last administered on 04/10/17 03:41; Admin Dose 5 LOZENGE; Start 04/03/17 at 17:30 Prednisone (Prednisone) 5 mg DAILY PO Last administered on 04/11/17 08:53; Admin Dose 5 MG; Start 04/04/17 at 09:00 Enoxaparin Sodium (Lovenox) 30 mg DAILY SC Last administered on 04/11/17 08: 55; Admin Dose 30 MG; Start 04/05/17 at 09:00 Levothyroxine Sodium (Synthroid) 100 mcg DAILY@06 PO Last administered on 04/12 05:32; Admin Dose 100 MCG; Start 04/05/17 at 06:00 Acetaminophen/ Hydrocodone Bitart ([place] (5/325)) Give for pain Q4H PRN PO PAIN LEVEL 1-3 Last administered on 04/05/17 20:57; Admin Dose 1 TAB; Start at 09:30 Hydromorphone HCl (Dilaudid) 0.5 mg Q4H PRN IV PAIN Last administered on 14:28; Admin Dose 0.5 MG; Start 04/05/17 at 09:30 Acetaminophen/ Hydrocodone Bitart ([place] (5/325)) 2 tab Q4H PRN PO PAIN Last administered on 04/12/17 05:33; Admin Dose 2 TAB; Start 04/06/17 at 01:25 Insulin Glargine (Lantus) 12 unit QHS SC ; Start 04/06/17 at 21:00; Status Future Hold Pantoprazole (Protonix Iv) 40 mg BID@06,18 IV Last administered on 04/12/17 05:32; Admin Dose 40 MG; Start 04/06/17 at 18:00 Hydromorphone HCl (Dilaudid) 1 mg Q4H PRN IV PAIN Last administered on 17:54; Admin Dose 1 MG; Start 04/07/17 at 00:00 Hydralazine HCl 10 mg 10 mg Q4H PRN IV SBP>160; Start 04/07/17 at 14:00 Acetaminophen 100 ml @ 400 mls/hr Q8H IVPB Last administered on 04/12/17 05: 32; Admin Dose 400 MLS/HR; Start 04/09/17 at 21:00 Dextrose/Sodium Chloride (D5-NS) 1,000 ml @ 50 mls/hr Q20H IV Last administered on 04/11/17 20:45; Admin Dose 50 MLS/HR; Start 04/10/17 at 09:00 Metoclopramide HCl (Reglan) 10 mg Q6 IV Last administered on 04/12/17 05:32; Admin Dose 10 MG; Start 04/10/17 at 09:00 Diagnostic Test (Pha) 1 ea 1 ea 02 XX Last administered on 04/11/17 02:06; Admin Dose 1 EA; Start 04/11/17 at 02:00 Ferric Sodium Gluconate Complex/ Sodium Chloride (Ferrlecit/NS) 110 ml @ 100 mls/hr Q24H IVPB Last administered on 10/10/17at 14:12; Admin Dose 100 MLS/HR; Start 04/11/17 at 13:00; Stop 04/13/17 at 14:05 Ferrous Sulfate 325 mg 325 mg BID PO ; Start 04/14/17 at 21:00 Magnesium Sulfate (Magnesium Sulfate 2 Gm/50 ml) 50 ml @ 25 mls/hr ONCE ONCE IVPB ; Start 04/12/17 at 10:00; Stop 04/12/17 at 11:59 MOY BACON M.D. Apr 12, 2017 08:40
[2017-04-12] MEDS: GABAPENTIN 100 MG CAP PO SCH (08:51)
[2017-04-12] MEDS: PAROXETINE 20 MG TAB PO SCH (08:52)
[2017-04-12] MEDS: DULOXETINE 30 MG CAP DR PO SCH (08:52)
[2017-04-12] MEDS: MAGNESIUM OXIDE 400 MG TAB PO SCH (08:52)
[2017-04-12] MEDS: predniSONE 5 MG TAB PO SCH (08:53)
[2017-04-12] MEDS: ATENOLOL 25 MG TAB PO SCH (08:53)
[2017-04-12] MEDS: ENOXAPARIN 30 MG/0.3 ML SYG SC SCH (08:57)
--- NOTE | 2017-04-12 09:29 | CONS ---
Date/Time of Note Date/Time of Note DATE: 04/12/17 TIME: 09:27 Assessment/Plan Assessment/Plan Chief Complaint/Hosp Course 1. History of diverticular abscess and rectovaginal fistula. Status post open sigmoidectomy and with cystoscopy and ureteral catheter placement. Postoperative day #9. Continue pain control. Encourage frequent ambulation. Anticoagulation as per surgery. 2. Possible postoperative ileus. Resolved status post NGT decompression. Continue prokinetics. The patient was advanced to a soft diet. 3. Type 2 diabetes mellitus. Continue sliding scale insulin. Sugars well controlled. Hemoglobin A1c 10.3. 4. Essential hypertension. Blood pressure well controlled. 5. Iron deficiency anemia. Continue iron supplements. 6. Dyslipidemia. Continue statins. 7. Hypothyroidism. Continue Synthroid. 8. History of exploratory laparotomy, I&D of pelvic abscess and diverting colostomy. Plan for takedown of colostomy at a later date. 9. Fluids, electrolytes, and nutrition. Patient's diet was advanced to a soft diet. 10. DVT prophylaxis. Subcutaneous Lovenox. 11. Plan. Continue advancement of diet as per the surgeon. Encourage frequent ambulation. Thank you for the consult. Discussed with . Problems: Consultation Date/Type/Reason Admit Date/Time Apr 03, 2017 at 10:32 Initial Consult Date 04/03/17 Type of Consultation: Internal medicine Referring Provider: MOY BACON M.D. 24 HR Interval Summary Free Text/Dictation Abdominal pain well controlled. No nausea or vomiting. Exam/Review of Systems Vital Signs Vitals Vital Signs Date Time Temp Pulse Resp B/P Pulse Ox O2 Delivery O2 Flow Rate FiO2 04/12/17 08:42 68 16 96 21 04/12/17 08:00 97.5 116/56 04/10/17 08:16 Room Air 04/09/17 01:29 2.0 Intake and Output 04/11/17 04/11/17 04/12/17 15:00 23:00 07:00 Intake Total 150 ml 1780 ml 1100 ml Output Total 800 ml 600 ml Balance 150 ml 980 ml 500 ml Exam General: Adequately build 62 year-old female lying in bed in no apparent distress. HEENT: Normocephalic, atraumatic. Eyes: Anicteric sclerae, conjunctivae clear. ENT: Nasal septum midline, oral mucosa moist. Neck supple, no JVD noticed. Respiratory: Bilaterally diminished breath sounds. No use of accessory muscles of respiration. No adventitious breath sounds. Cardiovascular: S1, S2 heard. Regular rate and rhythm. Abdomen: Midline fernando over surgical incision. Left lower quadrant colostomy in place. Genitourinary: Deferred. Extremities: No cyanosis, no clubbing, no edema. Peripheral pulses palpable. Neurologic: Cranial nerves II through XII grossly intact. The patient is awake, alert, and oriented. Skin: Normal skin turgor. No skin rashes. Results Result Diagram: 04/12/1751004/12/17510 Results 24 hrs Laboratory Tests Test 04/11/17 12:35 04/11/17 17:57 04/11/17 20:47 04/12/17 05:11 Bedside Glucose 180 168 124 White Blood Count 5.9 # Red Blood Count 3.00 L Hemoglobin 8.6 L Hematocrit 27.9 L Mean Corpuscular Volume 93.0 Mean Corpuscular Hemoglobin 28.7 L Mean Corpuscular Hemoglobin Concent 30.8 L Red Cell Distribution Width 14.4 Platelet Count 487 H Mean Platelet Volume 8.1 Neutrophils % 66.6 Lymphocytes % 23.6 Monocytes % 7.8 Eosinophils % 0.7 Basophils % 0.3 Nucleated Red Blood Cells % 0.0 Neutrophils # 3.9 Lymphocytes # 1.4 Monocytes # 0.5 Eosinophils # 0.0 Basophils # 0.0 Nucleated Red Blood Cells # 0.0 Sodium Level 139 Potassium Level 3.5 Chloride Level 108 Carbon Dioxide Level 27 Anion Gap 8 Blood Urea Nitrogen 3 L Creatinine 0.40 L Glucose Level 98 # Calcium Level 8.3 L Magnesium Level 1.6 L Test 04/12/17 08:51 Bedside Glucose 100 Medications Medications Current Medications Atenolol (Tenormin) 25 mg DAILY PO Last administered on 04/12/17 08:53; Admin Dose 25 MG; Start 04/04/17 at 09:00 Cyclobenzaprine HCl (Flexeril) 5 mg Q6H PRN PO PAIN Last administered on 23:03; Admin Dose 5 MG; Start 04/03/17 at 15:30 Duloxetine HCl (Cymbalta) 60 mg BID PO Last administered on 04/12/17 08:52; Admin Dose 60 MG; Start 04/03/17 at 21:00 Ergocalciferol (Drisdol) 50,000 unit QMONDAY PO ; Start 04/03/17 at 17:00 Magnesium Oxide (Mag-Ox 400) 400 mg BID PO Last administered on 04/12/17 08: 52; Admin Dose 400 MG; Start 04/03/17 at 21:00 Paroxetine HCl (Paxil) 40 mg DAILY PO Last administered on 04/12/17 08:52; Admin Dose 40 MG; Start 04/04/17 at 09:00 Calcium Carbonate (Tums) 1,000 mg Q4H PRN PO UPSET STOMACH Last administered on 04/09/17 23:32; Admin Dose 1,000 MG; Start 04/03/17 at 17:30 Atorvastatin Calcium (Lipitor) 10 mg DAILY@21 PO Last administered on 20:46; Admin Dose 10 MG; Start 04/03/17 at 21:00 Miscellaneous Information 1 ea NOTE XX ; Start 04/03/17 at 16:00 Glucose (Glutose) 15 gm Q15M PRN PO DECREASED GLUCOSE; Start 04/03/17 at 16:00 Glucose (Glutose) 22.5 gm Q15M PRN PO DECREASED GLUCOSE; Start 04/03/17 at 16: 00 Dextrose (D50w Syringe) 25 ml Q15M PRN IV DECREASED GLUCOSE Last administered on 04/06/17 02:53; Admin Dose 25 ML; Start 04/03/17 at 16:00 Dextrose (D50w Syringe) 50 ml Q15M PRN IV DECREASED GLUCOSE; Start 04/03/17 at 16:00 Glucagon (Glucagen) 1 mg Q15M PRN IM DECREASED GLUCOSE; Start 04/03/17 at 16:00 Glucose (Glutose) 15 gm Q15M PRN BUCCAL DECREASED GLUCOSE; Start 04/03/17 at 16 :00 Ondansetron HCl (Zofran Inj) 4 mg Q6H PRN IV NAUSEA AND/OR VOMITING Last administered on 04/07/17 14:49; Admin Dose 4 MG; Start 04/03/17 at 17:30 Phenol (Cepastat Lozenge) 1 lozenge PRN PRN MT SORE THROAT Last administered on 04/10/17 03:41; Admin Dose 5 LOZENGE; Start 04/03/17 at 17:30 Prednisone (Prednisone) 5 mg DAILY PO Last administered on 04/12/17 08:53; Admin Dose 5 MG; Start 04/04/17 at 09:00 Enoxaparin Sodium (Lovenox) 30 mg DAILY SC Last administered on 04/12/17 08: 57; Admin Dose 30 MG; Start 04/05/17 at 09:00 Levothyroxine Sodium (Synthroid) 100 mcg DAILY@06 PO Last administered on 04/12 05:32; Admin Dose 100 MCG; Start 04/05/17 at 06:00 Acetaminophen/ Hydrocodone Bitart ([place] (5/325)) Give for pain Q4H PRN PO PAIN LEVEL 1-3 Last administered on 04/05/17 20:57; Admin Dose 1 TAB; Start at 09:30 Hydromorphone HCl (Dilaudid) 0.5 mg Q4H PRN IV PAIN Last administered on 14:28; Admin Dose 0.5 MG; Start 04/05/17 at 09:30 Acetaminophen/ Hydrocodone Bitart ([place] (5/325)) 2 tab Q4H PRN PO PAIN Last administered on 04/12/17 05:33; Admin Dose 2 TAB; Start 04/06/17 at 01:25 Insulin Glargine (Lantus) 12 unit QHS SC ; Start 04/06/17 at 21:00; Status Future Hold Pantoprazole (Protonix Iv) 40 mg BID@06,18 IV Last administered on 04/12/17 05:32; Admin Dose 40 MG; Start 04/06/17 at 18:00 Hydromorphone HCl (Dilaudid) 1 mg Q4H PRN IV PAIN Last administered on 17:54; Admin Dose 1 MG; Start 04/07/17 at 00:00 Hydralazine HCl 10 mg 10 mg Q4H PRN IV SBP>160; Start 04/07/17 at 14:00 Acetaminophen 100 ml @ 400 mls/hr Q8H IVPB Last administered on 04/12/17 05: 32; Admin Dose 400 MLS/HR; Start 04/09/17 at 21:00 Dextrose/Sodium Chloride (D5-NS) 1,000 ml @ 50 mls/hr Q20H IV Last administered on 04/11/17 20:45; Admin Dose 50 MLS/HR; Start 04/10/17 at 09:00 Metoclopramide HCl (Reglan) 10 mg Q6 IV Last administered on 04/12/17 05:32; Admin Dose 10 MG; Start 04/10/17 at 09:00 Diagnostic Test (Pha) 1 ea 1 ea 02 XX Last administered on 04/11/17 02:06; Admin Dose 1 EA; Start 04/11/17 at 02:00 Ferric Sodium Gluconate Complex/ Sodium Chloride (Ferrlecit/NS) 110 ml @ 100 mls/hr Q24H IVPB Last administered on 04/11/17 14:12; Admin Dose 100 MLS/HR; Start 04/11/17 at 13:00; Stop 04/13/17 at 14:05 Ferrous Sulfate 325 mg 325 mg BID PO ; Start 04/14/17 at 21:00 Magnesium Sulfate (Magnesium Sulfate 2 Gm/50 ml) 50 ml @ 25 mls/hr ONCE ONCE IVPB ; Start 04/12/17 at 10:00; Stop 04/12/17 at 11:59 ALPHONSO BROWN NP Apr 12, 2017 09:29
[2017-04-12] MEDS ORDERED: MAGNESIUM SULFATE 2 GM/50 ML 50 ML IVPB ONE (10:00)
[2017-04-12] MEDS: SOD FERRIC GLUC COMPLX 125 MG in SOD CHLORIDE 0.9% 100 ML IVPB SCH (12:29)
--- NOTE | 2017-04-12 12:53 | PDOCDIS ---
Discharge Instructions CONDITION Patient Condition: Good HOME CARE INSTRUCTIONS: Diet Instructions: Regular (diabetic)Special Diet: FULL LIQUIDS ACTIVITY: Activity Restrictions: Avoid heavy lifting Bathing Restrictions: Sponge Bath FOLLOW UP/APPOINTMENTS Follow-up Plan F/U with me in one week. MOY BACON M.D. Apr 12, 2017 12:53
[2017-04-12 14:00] VITALS: BP 108/54; RESP 18
[2017-04-12] MEDS ORDERED: metFORMIN 500 MG TAB PO SCH (17:55)
[2017-04-14] MEDS ORDERED: FERROUS SULFATE (EC) 325 MG TAB PO SCH (21:00)
== END 2017-04-12 15:50 | DRG 330 ==
LOC: REC 04-03 10:32 → MS1 04-03 20:25
PROVIDERS: ADMIT Surgery; ATTEND Surgery
PROC: 0DBN0ZZ Excision of Sigmoid Colon, Open Approach (ICD-10-PCS; principal; 2017-04-03 12:30)
PROC: 0T788DZ Dilation of Bilateral Ureters with Intraluminal Device, Via Natural or Artificial Opening Endoscopic (ICD-10-PCS; 2017-04-03 12:30)
DX: K57.20 Diverticulitis of large intestine with perforation and abscess without bleeding (principal); E11.649 Type 2 diabetes mellitus with hypoglycemia without coma; N82.3 Fistula of vagina to large intestine; K56.7 Ileus, unspecified; E83.42 Hypomagnesemia; I10 Essential (primary) hypertension; D72.829 Elevated white blood cell count, unspecified; E03.9 Hypothyroidism, unspecified; E78.00 Pure hypercholesterolemia, unspecified; Z72.0 Tobacco use; E87.6 Hypokalemia; D50.8 Other iron deficiency anemias; Z87.74 Personal history of (corrected) congenital malformations of heart and circulatory system; G89.29 Other chronic pain; Z93.3 Colostomy status
CPT/HCPCS: 71010; 74000; 80048; 80053; 80061; 82270; 82962; 83036; 83540; 83735; 84100; 84439; 84443; 84480; 84481; 85025; 85610; 85730; 86850; 86900; 86901; 87086; 88309; 94640; 94664; 97110; 97116; 97161; 97530; C9113; J0131; J0360; J0690; J1100; J1170; J1650; J1815; J1885; J2250; J2370; J2405; J2765; J2916; J3010; J3475; J3480; J7030; J7040; J7042; J7120; J7512; J7999

== ENCOUNTER → 2017-05-16 | Outpatient (CLI) | payer BC ==
[~2017-05-16] MED LIST changes: +ATEN-51 PO; -ATOR20TA38 PO; -CYCL-319 PO; +CYCL5TAB PO; +FER325 PO; +FLUT200B INHALATION; +IOHEXOL 300MG/ML 150 ML BTL ONE; -MTF1000T PO; -PANT40TA4 PO; +SIMV20TA PO; -SSD1C20 TOP; -UDCOL PO
--- NOTE | 2017-05-16 16:52 | RADRPT ---
PROCEDURE: Water soluble contrast enema. CLINICAL INDICATION: Recent surgery of the rectosigmoid region. History of rectovaginal fistula. TECHNIQUE: Water-soluble contrast was administered via a rectal tube and several spot and overhead radiographs were obtained. Fluoroscopy time is 0.1 minutes and 13 images were obtained. COMPARISON: CT scan of the abdomen and pelvis dated 01/03/2017. FINDINGS: On the preliminary radiograph, there are degenerative changes of the spine. There has been previous bilateral laminectomy at L3 and L4. There are sternal wires. Right upper quadrant surgical clips are noted. There is a left lower quadrant colostomy. With contrast infusion into the rectum, there is evidence of a rectovaginal fistula with contrast ra pidly appearing within the vagina. There is also a small region of extravasation of contrast anterio r to the rectosigmoid junction measuring approximately 3.2 x 1.7 cm. There is diverticulosis of the descending colon and sigmoid colon. There is no obstruction. Contrast enters the terminal ileum. Contrast also enters the loop colostomy in the left lower quadrant. IMPRESSION: 1. Degenerative changes of the spine. 2. Prior spine surgery. 3. Previous median sternotomy. 4. Previous cholecystectomy. 5. Left lower quadrant colostomy. 6. Rectovaginal fistula. 7. Small region of extravasation of contrast anterior to the rectosigmoid junction region. 8. No obstruction. RPTAT: QQ .Enrike Torres MD, Date Time Electronically viewed and signed by .Enrike Torres MD, on 05/16/2017 16:52 .R/
== END | disposition home or self-care (01) ==
LOC: RAD 08:56
PROVIDERS: ATTEND Surgery
DX: N82.3 Fistula of vagina to large intestine (principal); Z93.3 Colostomy status
CPT/HCPCS: 74270; Q9967

== ENCOUNTER → 2017-07-13 | Outpatient (CLI) | END | disposition home or self-care (01) ==

== ENCOUNTER 2017-09-01 12:45 | Inpatient (IN) | END 2017-09-03 10:40 | disposition home or self-care (01) | DRG 331 ==

== ENCOUNTER 2018-05-09 18:13 | Inpatient (IN) | END 2018-05-11 12:29 | disposition home health service (06) | DRG 293 ==

== ENCOUNTER 2018-07-10 18:43 | Inpatient (IN) | payer BC ==
[~2018-07-10] VITALS: Ht 152.4 cm; Wt 68.0 kg
[~2018-07-10 18:43] MED LIST changes: -ALBU90AE INHALATION; -ATEN-51 PO; +ATEN50TA PO; -CALC600T24 PO; -CYCL5TAB PO; +ERGO500013 PO; -ERGO500037 PO; -FLUT200B INHALATION; +FURO20TA3 PO; -GABA100C14 PO; +GABA300C16 PO; +HYDR-3980 PO; -HYDR-906 PO; -INDO25CA25 PO; +INSU100I33 SC; -IOHEXOL 300MG/ML 150 ML BTL ONE; -LANT3I SC; +LEVO175T38 PO; -MAGN400T28 PO; +METF100010 PO; +PANT40TA3 PO; -PRED5TAB PO; -SYN15 PO; -TRAM-40 PO; +TRAM50TA PO
[2018-07-10] MEDS: DEXTROSE 5%-0.9% NACL 1,000 ML IV SCH (20:09)
[2018-07-10] MEDS ORDERED: morphine 4 MG/ML VIAL IV STA (20:13)
[2018-07-10] MEDS ORDERED: ONDANSETRON 4 MG INJ IV STA ×2 (20:13→20:28)
[2018-07-10] MEDS ORDERED: HYDROmorphONE 1 MG/ML SYG IV STA (20:28)
[2018-07-10] MEDS ORDERED: SOD CHLORIDE 0.9% 1,000 ML IV SCH (21:29)
--- NOTE | 2018-07-10 21:29 | ERD ---
ER Documentation Chief Complaint Chief Complaint CARLOTA from [facility],hypoglycemia,total body pain,last pain med 1200 HPI This is a 63-year-old female who was accepted as a transfer by Dr. Zhou of panel currently. The patient is being transferred and admitted here because of recurrent hypoglycemia. The patient is diabetic and takes insulin and oral medication. The patient says she had recurrent low blood sugars today running in the 40s with symptoms of dizziness and she is was syncopal on one event. She says her whole body hurts. She says she has no headache or chest pain though. Denies any recent illness or focal neurological complaints or GI symptoms ROS All systems reviewed and are negative except as per history of present illness. Medications Home Meds Active Scripts Furosemide* (Furosemide*) 20 Mg Tablet, 20 MG PO DAILY, #60 TAB Prov:ARAMIS SY 05/11/18 Reported Medications Gabapentin* (Gabapentin*) 300 Mg Capsule, 300 MG PO QHS PRN for PAIN, #60 CAP 11/29/17 Tramadol Hcl* (Ultram*) 50 Mg Tablet, 50 MG PO Q8 PRN for PAIN, TAB 11/29/17 Metformin Hcl* (Metformin Hcl*) 1,000 Mg Tablet, 1000 MG PO WITH BREAKFAST DINNE, #60 TAB 11/29/17 Levothyroxine Sodium* (Levoxyl*) 175 Mcg Tablet, 175 MCG PO BEFORE BREAKFAST, #30 TAB 11/29/17 Insulin Glulisine (Apidra Solostar) 100 Unit/1 Ml Insuln.pen, 15 UNIT SQ AC MEALS, #1 TUB 11/29/17 Insulin Glargine,Hum.rec.anlog (Basaglar Kwikpen U-100) 100 Unit/1 Ml Insuln.pen, 40 UNIT SC QAM, EA 11/29/17 Duloxetine Hcl* (Duloxetine Hcl*) 60 Mg Capsule.dr, 120 MG PO DAILY, #30 CAP 11/29/17 Atenolol* (Atenolol*) 50 Mg Tablet, 50 MG PO DAILY, #30 TAB 11/29/17 Hydrocodone/Acetaminophen ([place] 10-325 Tablet) 1 Each Tablet, 1 EACH PO Q4 PRN for PAIN, TAB 11/29/17 Pantoprazole* (Protonix*) 40 Mg Tablet.dr, 40 MG PO BID, TAB 5/30/18 Ferrous Sulfate* (Ferrous Sulfate*) 325 Mg Tabec, 325 MG PO DAILY, TAB 04/03/17 Simvastatin* (Zocor*) 20 Mg Tablet, 20 MG PO QHS, #30 TAB 04/03/17 Calcium Citrate/Vitamin D2 (Calcium with Vit D Tablet) 1 Each Tablet, 1 EACH PO, TAB 12/06/16 Ranitidine Hcl* (Ranitidine Hcl*) 150 Mg Tablet, 150 MG PO HS, #30 TAB 12/06/16 Ergocalciferol (Vitamin D2) (VITAMIN D2) 50,000 Unit Capsule, 93238 UNIT PO QMON, CAP 12/06/16 Paroxetine Hcl* (Paroxetine*) 40 Mg Tablet, 40 MG PO DAILY, TAB 10/09/16 Allergies Allergies: Coded Allergies: sulfamethoxazole (Unverified Allergy, Mild, 11/29/17) trimethoprim (Unverified Allergy, Mild, 11/29/17) PMhx/Soc History of Surgery: Yes (HEART SURGERY, APPENDICITIS, GALL BLADDER REMOVAL) Anesthesia Reaction: No Hx Neurological Disorder: No Hx Respiratory Disorders: No Hx Cardiac Disorders: Yes (OPEN HEART SURGERY, HOLE IN HEART) Hx Psychiatric Problems: No Hx Miscellaneous Medical Probl: No Hx Alcohol Use: No Hx Substance Use: No Hx Tobacco Use: Yes (SINCE 14 YRS OLD, LESS 1 PACK) Smoking Status: Current every day smoker FmHx Family History: No coronary disease Physical Exam Vitals Vital Signs Date Temp Pulse Resp B/P (MAP) Pulse Ox O2 O2 Flow FiO2 Time Delivery Rate 07/10/18 98.3 55 18 115/71 98 Nasal 3.0 20:42 (86) Cannula 07/10/18 98.4 54 18 91/48 (62) 98 18:51 Physical Exam Const: Well-developed, well-nourished Head: Atraumatic, normocephalic Eyes: Normal Conjunctiva, PERRLA, EOMI, normal sclera, no nystagmus ENT: Normal External Ears, Nose and Mouth, moist mucus membranes. Neck: Full range of motion. No meningismus, no lymphadenopathy. Resp: Clear to auscultation bilaterally, no wheezing, rhonchi, rales Cardio: Regular rate and rhythm, no murmurs, S1 S2 present Abd: Soft, non tender x 4, non distended. Normal bowel sounds, no guarding or rebound, no pulsitile abdominal masses or bruits Skin: No petechiae or rashes, no ecchymosis , no maculopapular rash Back: No midline or flank tenderness Ext: No cyanosis, or edema, FROM x 4, some mild pain with range of motion to the left knee normal inspection, neurovascularly intact x 4 Neur: Awake and alert, STR 5/5 x 4, sensation intact x 4, no focal findings, cerebellum intact Psych: Normal Mood and Affect Result Diagram: 07/10/18199907/10/181999 Results 24 hrs Laboratory Tests Test 07/10/18 19:14 07/10/18 20:00 Bedside Glucose 168 mg/dL White Blood Count 9.0 10^3/ul Red Blood Count 3.49 10^6/ul Hemoglobin 9.0 g/dl Hematocrit 30.2 % Mean Corpuscular Volume 86.5 fl Mean Corpuscular Hemoglobin 25.8 pg Mean Corpuscular Hemoglobin Concent 29.8 g/dl Red Cell Distribution Width 16.5 % Platelet Count 297 10^3/UL Mean Platelet Volume 8.4 fl Immature Granulocytes % 0.400 % Neutrophils % 78.2 % Lymphocytes % 13.6 % Monocytes % 6.5 % Eosinophils % 0.7 % Basophils % 0.6 % Nucleated Red Blood Cells % 0.0 /100WBC Immature Granulocytes # 0.040 10^3/ul Neutrophils # 7.0 10^3/ul Lymphocytes # 1.2 10^3/ul Monocytes # 0.6 10^3/ul Eosinophils # 0.1 10^3/ul Basophils # 0.1 10^3/ul Nucleated Red Blood Cells # 0.0 10^3/ul Prothrombin Time 12.0 Sec Prothrombin Time Ratio 0.9 INR International Normalized Ratio 0.88 Activated Partial Thromboplast Time 26.6 Sec Urine Color YELLOW Urine Clarity CLEAR Urine pH 5.0 Urine Specific [place] 1.014 Urine Ketones NEGATIVE mg/dL Urine Nitrite NEGATIVE mg/dL Urine Bilirubin NEGATIVE mg/dL Urine Urobilinogen NEGATIVE mg/dL Urine Leukocyte Esterase TRACE [place]/ul Urine Microscopic RBC > 182 /HPF Urine Microscopic WBC 13 /HPF Urine Squamous Epithelial Cells FEW /HPF Urine Bacteria FEW /HPF Urine Hemoglobin 3+ mg/dL Urine Glucose 3+ mg/dL Urine Total Protein 1+ mg/dl Sodium Level 138 mmol/L Potassium Level 4.1 mmol/L Chloride Level 101 mmol/L Carbon Dioxide Level 33 mmol/L Anion Gap 4 Blood Urea Nitrogen 38 mg/dl Creatinine 1.03 mg/dl Est Glomerular Filtrat Rate mL/min 54 mL/min Glucose Level 124 mg/dl Calcium Level 8.9 mg/dl Troponin I 0.013 ng/ml Current Medications Medications Dose Sig/Moose Start Time Status Last (Trade) Ordered Route PRN Stop Time Admin Dose Reason Admin 1,000 ml @ Q8H20M IV 07/10/18 07/10/18 Dextrose/Sodi 120 mls/hr 20:00 20:09 um Chloride Morphine 4 mg ONCE STAT 07/10/18 DC Sulfate IV 20:13 07/10/18 (morphine) 20:14 Ondansetron 4 mg ONCE STAT 07/10/18 DC HCl (Zofran IV 20:13 07/10/18 Inj) 20:14 1 mg ONCE STAT 07/10/18 DC 07/10/18 Hydromorphone IV 20:28 07/10/18 20:39 HCl 20:30 (Dilaudid) Ondansetron 4 mg ONCE STAT 07/10/18 DC 07/10/18 HCl (Zofran IV 20:28 07/10/18 20:39 Inj) 20:30 Procedures/MDM EKG: Rate/Rhythm: Sinus bradycardia heart rate 55 QRS, ST, QT: NORMAL SC, QRS, QT] Impression: Sinus bradycardia Ordering MD: IMER SOSA DO Location: E/R Room/Bed: PROCEDURE: CT Brain without contrast. CLINICAL INDICATION: Syncope. Weakness. TECHNIQUE: A CT of the brain was performed on a multidetector CT scanner util izing axial imaging from the skull base through the vertex without IV contrast. Multiplanar reformatted images were made. Images were reviewed on a PACS workstation. The CTDIvol is 39 mGy and the DLP is ninth 634 mGycm. DICOM images are available. One or more of the following dose reduction techniques were utilized: 1.) Automated exposure control 2.) Adjustment of the mA +/- kV according to patient's size 3.) Use of iterative reconstruction technique. COMPARISON: None FINDINGS: There is no intracranial hemorrhage, mass effect, or midline shift. No extra- axial fluid collection is seen. There is mild diffuse cerebral volume loss with sulcal and ventricular dilatation. Ventricles are in the midline and of normal configuration. There is periventricular and subcortical white matter disease in both cerebral hemispheres. No associated mass effect is seen.. The young white matter differentiation appears well-preserved. The visualized paranasal sinuses and osseous structures are grossly unremarkable. IMPRESSION: Atrophy. White matter disease compatible with chronic small vessel ischemia. No intracranial hemorrhage, mass or evidence of acute transcortical infarct. .Kt Garcia MD, Date Time Electronically viewed and signed by .Kt Garcia MD, MD on 07/10/2018 20:36 .A/ CC: IMER SOSA DO [id number] Ordering MD: IMER SOSA DO Location: E/R Room/Bed: PROCEDURE: XR Chest. CLINICAL INDICATION: Syncope. TECHNIQUE: Single frontal view. COMPARISON: 05/09/2018. FINDINGS: Mild atelectasis is present at the lung bases. The lungs are otherwise clear. The heart is enlarged. There are sternal wires. There is no pleural effusion or pneumothorax. There is a hiatus hernia. There is chronic deformity of the right humeral head. IMPRESSION: 1. Mild atelectasis at the lung bases. 2. Cardiomegaly. 3. Previous median sternotomy. 4. Chronic deformity of the right humeral head. 5. Hiatus hernia. 6. Otherwise unremarkable chest radiograph. RPTAT: QQ .Enrike Torres MD, Date Time Electronically viewed and signed by .Enrike Torres MD, MD on 07/10/2018 20:55 .R/ CC: IMER SOSA DO [id number] Ordering MD: IMER SOSA DO Location: E/R Room/Bed: PROCEDURE: Left knee radiographs. CLINICAL INDICATION: Trauma due to a fall. Left knee pain. TECHNIQUE: Three views. Frontal, lateral, and oblique. COMPARISON: No prior studies are available for comparison. FINDINGS: There is no fracture or dislocation. The soft tissues are normal. Articular surfaces are intact. There is no lytic or blastic lesion. There is no radiopaque foreign body. IMPRESSION: 1. Normal images of the left knee. RPTAT: QQ .Enrike Torres MD, MD Date Time Electronically viewed and signed by .Enrike Torres MD, on 07/10/2018 20:56 .R/ CC: IMER SOSA DO [id number] Placed the patient on continuous intravenous infusion of D5 NS to maintain blood sugar. We will admit to panel for recurrent hypoglycemia and syncopal Departure Diagnosis: Primary Impression: Syncope Syncope type: unspecified Qualified Codes: R55 - Syncope and collapse Additional Impression: Hypoglycemia Condition: Stable IMER SOSA DO Jul 10, 2018 21:28
[2018-07-10] MEDS ORDERED: ACETAMINOPHEN 325 MG TAB PO PRN (21:30)
[2018-07-10] MEDS ORDERED: ONDANSETRON 4 MG INJ IV PRN (21:30)
[2018-07-10] MEDS ORDERED: GLUCOSE GEL 15 GRAM TUBE BUCCAL PRN (22:30)
[2018-07-10] MEDS ORDERED: DEXTROSE 50% 50 ML SYRINGE IV PRN ×2 (22:30)
[2018-07-10] MEDS ORDERED: GLUCOSE GEL 15 GRAM TUBE PO PRN ×2 (22:30)
[2018-07-10] MEDS ORDERED: GLUCAGON 1 MG INJ IM PRN (22:30)
[2018-07-10 23:34] VITALS: BP 93/46; PULSE 57; RESP 18
[2018-07-10 23:38] VITALS: Ht 152.4 cm; Wt 68.0 kg
[2018-07-11] VITALS (14 sets, daily range): BP systolic 104–125; BP diastolic 52–61; PULSE 58–79; RESP 18–20
[2018-07-11] MEDS ORDERED: HYDROCODONE/APAP (10/325) TAB PO PRN (00:23)
[2018-07-11] MEDS: INSULIN ASPART [NOVOLOG] 3 ML PEN SC SCH ×6 (00:23→21:00)
[2018-07-11] MEDS: ACCU-CHEK XX SCH (00:24)
[2018-07-11] MEDS ORDERED: ALBUTEROL/IPRATROPIUM (NEB) 3 ML AMP ONE (01:27)
[2018-07-11] MEDS ORDERED: ALBUTEROL/IPRATROPIUM (NEB) 3 ML AMP HHN PRN (01:30)
[2018-07-11] MEDS ORDERED: FUROSEMIDE 40 MG INJ IV ONE (01:30)
[2018-07-11] MEDS: ALBUTEROL/IPRATROPIUM (NEB) 3 ML AMP HHN SCH ×4 (01:33→20:02)
--- NOTE | 2018-07-11 02:04 | HP ---
Date/Time of Note Date/Time of Note DATE: 07/11/18 TIME: 02:00 Assessment/Plan VTE Prophylaxis SCD applied (from Nsg): Yes Pharmacological prophylaxis: NA/contraindicated Pharm contraindication: low risk/ambulating Lines/Catheters IV Catheter Type (from Nrsg): Saline Lock Assessment/Plan Hospital Course This is a 63-year-old female being admitted to the telemetry floor for: #1 loss of consciousness: Secondary likely to symptomatic hypoglycemia and/or possibly worsened by opioid. Patient was found to have a undetectable blood sugar reading, she was given D5 followed by D10. At the current time we will resume the patient on D5 half-normal saline. Insulin sliding scale. Will hold home insulin at the current time, we will need to readjust patient's home insulin regimen has a dose at the current time is likely too much especially given that her last hemoglobin A1c is 5.9 in May 2018, will replete hemoglobin A1c. Patient does have a history of chronic pain as well will also need to manage her pain carefully without affecting her mental status, I will decrease her dose of [place] at the current time. We will also hold atenolol at the current time until sugars are stabilized. #2 diabetes mellitus: Patient's last hemoglobin A1c was noted to be 5.9 in May 2018, at the current time we will check a repeat hemoglobin A1c level. We will need to adjust patient's insulin regimen she is likely receiving too much. I will hold her current home insulin at the current time, insulin sliding scale, D5 half-normal saline. #3 Acute kidney injury: Likely prerenal, monitor renal function, IV fluid hydration with saline. #4 hypothyroidism: Check TSH, continue Synthroid #5 depression: Continue Cymbalta as indicated #6 obstructive sleep apnea: Continue CPAP at night #7 history of iron deficiency anemia: Continue ferrous sulfate #8 history of left-sided colitis status post resection: Currently no acute issues #9 DVT GI prophylaxis: SCDs, no GI prophylaxis indicated Further treatment strategy will be implemented as per the clinical course. Result Diagram: 07/10/18199907/10/181999 Results 24hrs Laboratory Tests Test 07/10/18 19:14 07/10/18 20:00 07/11/18 00:13 Bedside Glucose 168 147 White Blood Count 9.0 Red Blood Count 3.49 L Hemoglobin 9.0 L Hematocrit 30.2 L Mean Corpuscular Volume 86.5 Mean Corpuscular Hemoglobin 25.8 L Mean Corpuscular Hemoglobin Concent 29.8 L Red Cell Distribution Width 16.5 H Platelet Count 297 Mean Platelet Volume 8.4 Immature Granulocytes % 0.400 Neutrophils % 78.2 H Lymphocytes % 13.6 L Monocytes % 6.5 Eosinophils % 0.7 Basophils % 0.6 Nucleated Red Blood Cells % 0.0 Immature Granulocytes # 0.040 H Neutrophils # 7.0 Lymphocytes # 1.2 Monocytes # 0.6 Eosinophils # 0.1 Basophils # 0.1 Nucleated Red Blood Cells # 0.0 Prothrombin Time 12.0 Prothrombin Time Ratio 0.9 INR International Normalized Ratio 0.88 Activated Partial Thromboplast Time 26.6 Urine Color YELLOW Urine Clarity CLEAR Urine pH 5.0 Urine Specific [place] 1.014 Urine Ketones NEGATIVE Urine Nitrite NEGATIVE Urine Bilirubin NEGATIVE Urine Urobilinogen NEGATIVE Urine Leukocyte Esterase TRACE A Urine Microscopic RBC > 182 H Urine Microscopic WBC 13 H Urine Squamous Epithelial Cells FEW Urine Bacteria FEW A Urine Hemoglobin 3+ H Urine Glucose 3+ H Urine Total Protein 1+ H Sodium Level 138 Potassium Level 4.1 Chloride Level 101 Carbon Dioxide Level 33 H Anion Gap 4 L Blood Urea Nitrogen 38 H Creatinine 1.03 H Est Glomerular Filtrat Rate mL/min 54 L Glucose Level 124 Calcium Level 8.9 Troponin I 0.013 Ethyl Alcohol Level < 10.0 H HPI/ROS Admit Date/Time Admit Date/Time Jul 10, 2018 at 21:29 Hx of Present Illness Chief complaint: Altered mental status next This is a 63-year-old female who presented to [facility] with altered mental status that occurred in the a.m. secondary to hypoglycemia. Patient was brought in by ambulance after she was found by family members acting confused and falling asleep at her bedside in the morning. There were no falls or injuries reported. Patient denied any recent fevers cough chest pain shortness of breath or diarrhea or dysuria. Her EMS blood glucose Accu-Chek was read as low on the monitor and patient was given D50 and her altered mental status improved. Upon arrival to [facility] the [facility] she was also noted to have pinpoint pupils and she was noted to be taking [place] for chronic shoulder pain. She was given a Narcan and this also seemed to make her more alert. Upon arrival to [facility] I did ask a further history of the patient and she reported that over the last week or so she has noticed blood sug ars running in the 50s-60s. She reported that around 12 she notes that her blood sugar was 44 and after that she ate 2 tacos and iced coffee in the next thing she remembers is waking up at the hospital. She does report that she has been eating less lately but has continued her regular insulin dosages. Pertinent laboratory findings at the transfer facility: Glucose level noted to be 26 was originally started on D5 infusion however later was upgraded to D10 Hemoglobin 10.8/hematocrit 34 WBC 10 Sodium 137 potassium 4 chloride 96 CO2 27 BUN 44 creatinine 2.29 next Chest x-ray showed no acute disease process: CT of the head showed no acute disease process, Right shoulder x-ray: Severely deformed right humeral head likely from chronic or recurrent dislocation, no evidence of shoulder dislocation on the current exam Allergies: Bactrim Medications: See BHARGAV WRIGHT Const: As per HPI Eyes : No pain discharge or redness or change in visual acuity ENT: No pain, sore throat, congestion, congestion, dysphagia or discharge Respiratory: No shortness of breath, cough, sputum, wheezing, or pleuritic pain Cardiovascular: No chest pain, palpitation, PND, or edema GI : no change in appetite, abdominal pain, nausea, vomiting, diarrhea, constipation, or change in the color his stool Genitourinary: No dysuria, hematuria, flank pain , discharge or CVA tenderness Musculoskeletal: As per HPI, left knee pain Skin: No rash, bruising or hives Neuro: As per HPI Endocrine: As per HPI Psych: No hallucination, depression, anxiety or suicidal ideation PMH/Family/Social Past Medical History left-sided colitis status post resection, diabetes, hypertension, depression, sleep apnea Medications Current Medications Dextrose/Sodium Chloride 1,000 ml @ 75 mls/hr [id number] IV Last administered on 07/10/18at 20:09; Admin Dose 120 MLS/HR; Start 07/10/18 at 20:00 Ondansetron HCl (Zofran Inj) 4 mg ER BRIDGE PRN IV NAUSEA AND/OR VOMITING; Start 07/10/18 at 21:30; Stop 07/11/18 at 21:29 Acetaminophen (Tylenol Tab) 650 mg ER BRIDGE PRN PO MILD PAIN(1-3)OR ELEVATED TEMP; Start 07/10/18 at 21:30; Stop 07/11/18 at 21:29 Levothyroxine Sodium (Synthroid) 175 mcg BEFORE BREAKFAST PO ; Start 07/11/18 at 07:00 Ranitidine HCl (Zantac) 150 mg HS PO ; Start 07/11/18 at 21:00 Atorvastatin Calcium (Lipitor) 10 mg DAILY@21 PO ; Start 07/11/18 at 21:00 Diagnostic Test (Pha) (Accu-Chek) 1 ea 02 XX ; Start 07/11/18 at 02:00 Insulin Aspart (Novolog Insulin Pen) NOVOLOG *MILD* ALGORI... Q4 SC ; Start 07/11/18 at 01:00 Miscellaneous Information 1 ea NOTE XX ; Start 07/10/18 at 22:30 Glucose (Glutose) 15 gm Q15M PRN PO DECREASED GLUCOSE; Start 07/10/18 at 22:30 Glucose (Glutose) 22.5 gm Q15M PRN PO DECREASED GLUCOSE; Start 07/10/18 at 22:30 Dextrose (D50w Syringe) 25 ml Q15M PRN IV DECREASED GLUCOSE; Start 07/10/18 at 22:30 Dextrose (D50w Syringe) 50 ml Q15M PRN IV DECREASED GLUCOSE; Start 07/10/18 at 22:30 Glucagon (Glucagen) 1 mg Q15M PRN IM DECREASED GLUCOSE; Start 07/10/18 at 22:30 Glucose (Glutose) 15 gm Q15M PRN BUCCAL DECREASED GLUCOSE; Start 07/10/18 at 22:30 Acetaminophen/ Hydrocodone Bitart ([place] (10/325)) 1 tab Q4H PRN PO PAIN LEVEL 6-10 Last administered on 07/11/18at 01:06; Admin Dose 1 TAB; Start 07/11/18 at 00:23 Albuterol/ Ipratropium (Duoneb) 3 ml Q6H RESP THERAPY HHN Last administered on 07/11/18at 01:33; Admin Dose 3 ML; Start 07/11/18 at 02:00 Albuterol/ Ipratropium (Duoneb) 3 ml Q2H RESP THERAPY PRN HHN SHORTNESS OF BREATH; Start 07/11/18 at 01:30 Coded Allergies: sulfamethoxazole (Unverified Allergy, Mild, 11/29/17) trimethoprim (Unverified Allergy, Mild, 11/29/17) Past Surgical History Colon surgery, hysterectomy, cholecystectomy Past Surgical Hx: cholecystectomy Family History Significant Family History: no pertinent family hx Social History Alcohol Use: none Smoking Status: Current every day smoker Drug Use: none Exam/Review of Systems Vital Signs Vitals Vital Signs Date Temp Pulse Resp B/P (MAP) Pulse Ox O2 O2 Flow FiO2 Time Delivery Rate 07/11/18 60 20 96 Nasal 2.0 01:36 Cannula 07/11/18 30 01:35 07/10/18 98.8 93/46 (62) 23:34 Exam Exam General: Patient is a pleasant female currently lying in bed in no acute dis tress HEENT: Atraumatic, normocephalic. The pupils are equal, round and reactive. Extraocular motor are intact Neck: Supple with full range of motion. No rigidity or meningismus Chest: Nontender Lungs: Clear to auscultation bilaterally no crackles rales or wheezing Heart: Normal S1-S2, Regular rhythm and rate. No murmur, S3, or S4 Abdomen: Soft , nontender, nondistended , bowel sounds are present. No guarding no rebound tenderness , No masses or organomegaly. No costovertebral temporal angle mass Extremities: Normal to inspection, no edema no cyanosis, left lower extremity Pito wrap Skill skeletal: Right shoulder deformity, chronic Neurologic: Normal mental status, speech normal, cranial nerves II through XII are intact, motor and sensory are intact, no focal weakness Additional Comments PROCEDURE: CT Brain without contrast. CLINICAL INDICATION: Syncope. Weakness. TECHNIQUE: A CT of the brain was performed on a multidetector CT scanner utilizing axial imaging from the skull base through the vertex without IV contrast. Multiplanar reformatted images were made. Images were reviewed on a PACS workstation. The CTDIvol is 39 mGy and the DLP is ninth 634 mGycm. DICOM images are available. One or more of the following dose reduction techniques were utilized: 1.) Automated exposure control 2.) Adjustment of the mA +/- kV according to patient's size 3.) Use of iterative reconstruction technique. COMPARISON: None FINDINGS: There is no intracranial hemorrhage, mass effect, or midline shift. No extra- axial fluid collection is seen. There is mild diffuse cerebral volume loss with sulcal and ventricular dilatation. Ventricles are in the midline and of normal configuration. There is periventricular and subcortical white matter disease in both cerebral hemispheres. No associated mass effect is seen.. The young white matter differentiation appears well-preserved. The visualized paranasal sinuses and osseous structures are grossly unremarkable. IMPRESSION: Atrophy. White matter disease compatible with chronic small vessel ischemia. No intracranial hemorrhage, mass or evidence of acute transcortical infarct. .Kt Garcia MD, MD Date Time Electronically viewed and signed by .Kt Garcia MD, on 07/10/2018 20:36 .A/ CC: IMER SOSA DO [id number] EKG: Rate/Rhythm: Sinus bradycardia heart rate 55 QRS, ST, QT: NORMAL DC, QRS, QT] Impression: Sinus bradycardia PROCEDURE: Left knee radiographs. CLINICAL INDICATION: Trauma due to a fall. Left knee pain. TECHNIQUE: Three views. Frontal, lateral, and oblique. COMPARISON: No prior studies are available for comparison. FINDINGS: There is no fracture or dislocation. The soft tissues are normal. Articular surfaces are intact. There is no lytic or blastic lesion. There is no radiopaque foreign body. IMPRESSION: 1. Normal images of the left knee. RPTAT: QQ .Enrike Torres MD, Date Time Electronically viewed and signed by .Enrike Torres MD, on 07/10/2018 20:56 .R/ CC: IMER SOSA DO [id number] MARY GUO Jul 11, 2018 02:04
[2018-07-11] MEDS: HYDROCODONE/APAP (5/325) TAB PO PRN ×3 (05:52→18:26)
[2018-07-11] MEDS: LEVOTHYROXINE 175 MCG TAB PO SCH (06:25)
[2018-07-11] MEDS: DEXTROSE 5%-0.9% NACL 1,000 ML IV SCH ×2 (06:25→09:14)
[2018-07-11] MEDS: FERROUS SULFATE (EC) 325 MG TAB PO SCH (09:13)
[2018-07-11] MEDS: DULOXETINE 30 MG CAP DR PO SCH (09:13)
--- NOTE | 2018-07-11 10:29 | PN ---
Date/Time of Note Date/Time of Note DATE: 07/11/18 TIME: 10:28 Assessment/Plan VTE Prophylaxis Risk score (from Nsg)>0 risk: 4 SCD applied (from Nsg): Yes Pharmacological prophylaxis: heparin Lines/Catheters IV Catheter Type (from Nrsg): Peripheral IV Urinary Cath still in place: No Assessment/Plan Hospital Course SUBJECTIVE: Lying in bed. Having pain all over the body. OBJECTIVE: Vital signs-see below PHYSICAL EXAM: Constitutional: Well-developed, adequately built, lying in bed comfortably. Psych: + Labile mood/depression Head: atraumatic, normocephalic Eyes: nl conjunctiva, nl sclera ENMT: mucosa pink and moist, nl external ears & nose Neck: non-tender, supple Respiratory: clear to auscultation, normal air movement Cardiovascular: nl pulses, regular rate and rhythm Gastrointestinal: non-tender, soft, bowel sounds active in all 4 quadrants. Musculoskeletal/extremities: Pain all over. Nl extremities to inspection, motor strength equal bilaterally, no focal deficit. Normal pulses,no cyanosis, no edema. Neurological: Alert oriented 3,nl speech, nl strength Skin: nl turgor ASSESSMENT/PLAN:63-year-old female with DMII hx, hypothyroidism, depression, chronic pain/neuropathy/arthritis, sleep apnea/home CPAP,DD, admitted with symptomatic hypoglycemia. 1. Symptomatic hypoglycemia -Patient takes 15 units Apidra before meals meals, 40 units of glargine at home with the last known A1c 5.9=> this explain the cause of hypoglycemic event. -At present, blood sugar normal=> symptoms resolved -Monitor -DC insulin 2. History of DMII in obese patient -Again, this patient does not have diabetes anymore as her latest A1c 3 months ago 5.9. -At this time, we will keep patient on a carbohydrate controlled diet with ISS/Accu-Chek monitoring. -Repeat A1c. 3. Chronic anemia -Stable HH -Continue oral iron 4. Dyslipidemia -On statin. -Lipid panel 5. Diastolic dysfunction -Latest echo in 3 months showed preserved ejection fraction. -Clinically stable. 6. Depression/anxiety disorders -Continue Cymbalta -PRN Xanax 7. Chronic pain syndrome W/ psychiatric comorbidity -Obviously, her depressive disorder is amplifying her pain symptoms. -Continue antidepressant. We will add gabapentin and PRN NSAIDs. -Add vitamin D level DVT prophylaxis: Heparin PUD prophylaxis: Zantac CODE STATUS: Full code Diet: Carbohydrate controlled/low-cholesterol diet. Disposition: Continue current medical management. Monitor blood glucose trend closely. If patient with no further symptoms and blood sugar remained stable, discharge planning in a.m. on metformin maintenance dose. Patient was seen in collaboration with Dr. Zhou. Result Diagram: 07/10/18199907/10/181999 Results 24hrs Laboratory Tests Test 07/10/18 19:14 07/10/18 20:00 07/10/18 20:30 07/11/18 00:13 Bedside Glucose 168 147 White Blood Count 9.0 Red Blood Count 3.49 L Hemoglobin 9.0 L Hematocrit 30.2 L Mean Corpuscular Volume 86.5 Mean Corpuscular 25.8 L Hemoglobin Mean Corpuscular 29.8 L Hemoglobin Concent Red Cell Distribution 16.5 H Width Platelet Count 297 Mean Platelet Volume 8.4 Immature Granulocytes % 0.400 Neutrophils % 78.2 H Lymphocytes % 13.6 L Monocytes % 6.5 Eosinophils % 0.7 Basophils % 0.6 Nucleated Red Blood 0.0 Cells % Immature Granulocytes # 0.040 H Neutrophils # 7.0 Lymphocytes # 1.2 Monocytes # 0.6 Eosinophils # 0.1 Basophils # 0.1 Nucleated Red Blood 0.0 Cells # Prothrombin Time 12.0 Prothrombin Time Ratio 0.9 INR International 0.88 Normalized Ratio Activated 26.6 Partial Thromboplast Time Urine Color YELLOW Urine Clarity CLEAR Urine pH 5.0 Urine Specific [place] 1.014 Urine Ketones NEGATIVE Urine Nitrite NEGATIVE Urine Bilirubin NEGATIVE Urine Urobilinogen NEGATIVE Urine Leukocyte Esterase TRACE A Urine Microscopic RBC > 182 H Urine Microscopic WBC 13 H Urine Squamous FEW Epithelial Cells Urine Bacteria FEW A Urine Hemoglobin 3+ H Urine Glucose 3+ H Urine Total Protein 1+ H Sodium Level 138 Potassium Level 4.1 Chloride Level 101 Carbon Dioxide Level 33 H Anion Gap 4 L Blood Urea Nitrogen 38 H Creatinine 1.03 H Est Glomerular Filtrat 54 L Rate mL/min Glucose Level 124 Calcium Level 8.9 Troponin I 0.013 Ethyl Alcohol Level < 10.0 H Urine Opiates Screen Positive Urine Barbiturates Negative Urine Amphetamines Negative Screen Urine Benzodiazepines Negative Screen Urine Cocaine Screen Negative Urine Cannabinoids Negative Test 07/11/18 05:55 07/11/18 07:48 Bedside Glucose 108 88 Exam/Review of Systems Vital Signs Vitals Vital Signs Date Temp Pulse Resp B/P (MAP) Pulse Ox O2 O2 Flow FiO2 Time Delivery Rate 07/11/18 69 18 95 Nasal 2.0 08:47 Cannula 07/11/18 98.3 105/52 07:27 (69) 07/11/18 30 05:00 Medications Medications Current Medications Dextrose/Sodium Chloride 1,000 ml @ 75 mls/hr [id number] IV Last administered on 07/11/18at 09:14; Admin Dose 75 MLS/HR; Start 07/10/18 at 20:00 Ondansetron HCl (Zofran Inj) 4 mg ER BRIDGE PRN IV NAUSEA AND/OR VOMITING; Start 07/10/18 at 21:30; Stop 07/11/18 at 21:29 Acetaminophen (Tylenol Tab) 650 mg ER BRIDGE PRN PO MILD PAIN(1-3)OR ELEVATED TEMP Last administered on 07/11/18at 06:25; Admin Dose 650 MG; Start 07/10/18 at 21:30; Stop 07/11/18 at 21:29 Levothyroxine Sodium (Synthroid) 175 mcg BEFORE BREAKFAST PO Last administered on 07/11/18at 06:25; Admin Dose 175 MCG; Start 07/11/18 at 07:00 Ranitidine HCl (Zantac) 150 mg HS PO ; Start 07/11/18 at 21:00 Atorvastatin Calcium (Lipitor) 10 mg DAILY@21 PO ; Start 07/11/18 at 21:00 Diagnostic Test (Pha) (Accu-Chek) 1 ea 02 XX ; Start 07/11/18 at 02:00 Insulin Aspart (Novolog Insulin Pen) NOVOLOG *MILD* ALGORI... Q4 SC ; Start 07/11/18 at 01:00 Miscellaneous Information 1 ea NOTE XX ; Start 07/10/18 at 22:30 Glucose (Glutose) 15 gm Q15M PRN PO DECREASED GLUCOSE; Start 07/10/18 at 22:30 Glucose (Glutose) 22.5 gm Q15M PRN PO DECREASED GLUCOSE; Start 07/10/18 at 22:30 Dextrose (D50w Syringe) 25 ml Q15M PRN IV DECREASED GLUCOSE; Start 07/10/18 at 22:30 Dextrose (D50w Syringe) 50 ml Q15M PRN IV DECREASED GLUCOSE; Start 07/10/18 at 22:30 Glucagon (Glucagen) 1 mg Q15M PRN IM DECREASED GLUCOSE; Start 07/10/18 at 22:30 Glucose (Glutose) 15 gm Q15M PRN BUCCAL DECREASED GLUCOSE; Start 07/10/18 at 22:30 Albuterol/ Ipratropium (Duoneb) 3 ml Q6H RESP THERAPY HHN Last administered on 07/11/18at 08:47; Admin Dose 3 ML; Start 07/11/18 at 02:00 Albuterol/ Ipratropium (Duoneb) 3 ml Q2H RESP THERAPY PRN HHN SHORTNESS OF BREATH; Start 07/11/18 at 01:30 Acetaminophen/ Hydrocodone Bitart ([place] (5/325)) 1 tab Q6H PRN PO MODERATE PAIN LEVEL 4-6 Last administered on 07/11/18at 05:52; Admin Dose 1 TAB; Start 07/11/18 at 03:00 Duloxetine HCl (Cymbalta) 120 mg DAILY PO Last administered on 07/11/18at 09:13; Admin Dose 120 MG; Start 07/11/18 at 09:00 Ferrous Sulfate (Ferrous Sulfate (Ec)) 325 mg DAILY PO Last administered on 07/11/18at 09:13; Admin Dose 325 MG; Start 07/11/18 at 09:00 MANE MATA NP Jul 11, 2018 10:29
[2018-07-11] MEDS ORDERED: GABAPENTIN 300 MG CAP ONE (10:50)
[2018-07-11] MEDS: IBUPROFEN 600 MG TAB PO PRN ×2 (10:52→21:23)
[2018-07-11] MEDS: ALPRAZOLAM 0.5 MG TAB PO PRN (10:52)
[2018-07-11] MEDS: GABAPENTIN 300 MG CAP PO SCH ×2 (10:52→21:23)
--- NOTE | 2018-07-11 12:04 | RADRPT ---
Vent Rate: 63 bpm RR Interval: 0 msec GA Interval: 152 msec QRS Duration: 100 msec QT Interval: 408 msec QTC Interval: 417 msec P-R-T [place]: 56 - -57 - 72 degrees Normal sinus rhythm Left axis deviation Pulmonary disease pattern Abnormal ECG Electronically Signed By: Jonathan Bright [id number]
[2018-07-11] MEDS ORDERED: RANITIDINE 150 MG TAB PO SCH (21:00)
[2018-07-11] MEDS ORDERED: ATORVASTATIN 10 MG TAB PO SCH (21:00)
[2018-07-11] MEDS: HEPARIN 5,000 UNIT/1 ML VIAL SC SCH (21:31)
[2018-07-12] VITALS (8 sets, daily range): BP systolic 117–139; BP diastolic 56–64; PULSE 67–97; RESP 18–22
[2018-07-12] MEDS: HYDROCODONE/APAP (5/325) TAB PO PRN ×2 (01:03→07:00)
[2018-07-12] MEDS: ALBUTEROL/IPRATROPIUM (NEB) 3 ML AMP HHN SCH ×3 (01:52→14:53)
[2018-07-12] MEDS: ACCU-CHEK XX SCH (02:00)
[2018-07-12] MEDS: IBUPROFEN 600 MG TAB PO PRN (05:04)
[2018-07-12] MEDS: LEVOTHYROXINE 175 MCG TAB PO SCH (07:00)
[2018-07-12] MEDS: INSULIN ASPART [NOVOLOG] 3 ML PEN SC SCH ×3 (08:28→17:50)
[2018-07-12] MEDS: GABAPENTIN 300 MG CAP PO SCH ×2 (08:51→13:00)
[2018-07-12] MEDS: FERROUS SULFATE (EC) 325 MG TAB PO SCH (08:51)
[2018-07-12] MEDS: DULOXETINE 30 MG CAP DR PO SCH (08:51)
[2018-07-12] MEDS: HEPARIN 5,000 UNIT/1 ML VIAL SC SCH (08:58)
[2018-07-12] MEDS: DEXTROSE 5%-0.9% NACL 1,000 ML IV SCH (09:13)
--- NOTE | 2018-07-12 11:32 | PDOCDIS ---
Discharge Instructions CONDITION [id number] Patient Condition: [id number] Stable HOME CARE INSTRUCTIONS: [id number] Your diet recommendation is: [id number] Carbohydrate controlled diet. FOLLOW UP/APPOINTMENTS Follow-up Plan Follow-up with primary care physician in 1 week. MANE MTAA NP Jul 12, 2018 11:31
[2018-07-12] MEDS ORDERED: METF100010 PO (11:37)
[2018-07-12] MEDS ORDERED: LYR75 PO (11:37)
[2018-07-12] MEDS ORDERED: ERGO500013 PO (11:37)
[2018-07-12] MEDS ORDERED: IBUP-1542 PO (11:37)
--- NOTE | 2018-07-12 11:48 | DS ---
Date/Time of Note Date/Time of Note DATE: 07/12/18 TIME: 11:44 Discharge Summary Admission/Discharge Info Admit Date/Time Jul 10, 2018 at 21:29 Discharge Date/Time Discharge Diagnosis 1. Symptomatic hypoglycemia 2/2 tight control on insulin with resolved diabet es. 2. Chronic anemia 3. Dyslipidemia 4. Diastolic dysfunction 5. Depression/anxiety disorders 6. Chronic pain syndrome W/ psychiatric comorbidity 7. Vitamin D deficiency. Patient Condition: Stable Procedures 07/10/18. Brain CT. IMPRESSION: Atrophy. White matter disease compatible with chronic small vessel ischemia. No intracranial hemorrhage, mass or evidence of acute transcortical infarct. Hospital Course 63-year-old female with DMII hx, hypothyroidism, depression, chronic pain/neuropathy/arthritis, sleep apnea/home CPAP,DD, admitted with altered level of consciousness, dizziness, found to have symptomatic hypoglycemia. Brain CT n egative for acute neurovascular events. With insulin and or oral hypoglycemic agents were held. Patient was noted with A1c 5.9 with stable glycemic trends, suggestive of resolution of diabetes. At this time, patient does not need treatment with insulin. She can be maintained on a metformin low-dose with diet regimen. The patient did not have any hypoglycemic episodes or symptoms while she was in the hospital. Patient continued to have chronic pain secondary to with her psychiatric comorbidities including major depressive disorders. She was continued on Cymbalta. She was not tolerating gabapentin as outpatient, as such recommended Lyrica with as needed NSAIDs. She was continued on vitamin D supplementation. At this time, patient is feeling back to her baseline. She does not have any deficit. She has been tolerating diet and activities very well. 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 Patient verbalized instructions. Approximately 60 minutes was spent on coordinating the discharge on this patient. Patient was seen in collaboration with Dr. Curt Donohue Active Scripts Pregabalin* (Lyrica*) 75 Mg Capsule, 75 MG PO BID, #60 CAP Prov:MATA,MANE V. MANAGER REVENUE 07/12/18 Ibuprofen* (Ibuprofen*) 600 Mg Tablet, 600 MG PO Q6H PRN for MILD PAIN LEVEL 1- 3, #90 TAB Prov:MANE MATA V. MANAGER REVENUE 07/12/18 Metformin Hcl* (Metformin Hcl*) 1,000 Mg Tablet, 500 MG PO AC BREAKFAST, #60 TAB Prov:MANE MATA V. MANAGER REVENUE 07/12/18 Ergocalciferol (Vitamin D2) (VITAMIN D2) 50,000 Unit Capsule, 60864 UNIT PO QMON, #8 CAP Prov:MANE MATA Amada. MANAGER REVENUE 07/12/18 Furosemide* (Furosemide*) 20 Mg Tablet, 20 MG PO DAILY, #60 TAB Prov:ARAMIS SY 05/11/18 Reported Medications Gabapentin* (Gabapentin*) 300 Mg Capsule, 300 MG PO QHS PRN for PAIN, #60 CAP 11/29/17 Tramadol Hcl* (Ultram*) 50 Mg Tablet, 50 MG PO Q8 PRN for PAIN, TAB 11/29/17 Levothyroxine Sodium* (Levoxyl*) 175 Mcg Tablet, 175 MCG PO BEFORE BREAKFAST, #30 TAB 11/29/17 Insulin Glulisine (Apidra Solostar) 100 Unit/1 Ml Insuln.pen, 15 UNIT SQ AC MEALS, #1 TUB 11/29/17 Insulin Glargine,Hum.rec.anlog (Basaglar Kwikpen U-100) 100 Unit/1 Ml Insuln.pen, 40 UNIT SC QAM, EA 11/29/17 Duloxetine Hcl* (Duloxetine Hcl*) 60 Mg Capsule.dr, 120 MG PO DAILY, #30 CAP 11/29/17 Atenolol* (Atenolol*) 50 Mg Tablet, 50 MG PO DAILY, #30 TAB 11/29/17 Hydrocodone/Acetaminophen ([place] 10-325 Tablet) 1 Each Tablet, 1 EACH PO Q4 PRN for PAIN, TAB 11/29/17 Pantoprazole* (Protonix*) 40 Mg Tablet.dr, 40 MG PO BID, TAB 11/29/17 Ferrous Sulfate* (Ferrous Sulfate*) 325 Mg Tabec, 325 MG PO DAILY, TAB 04/03/17 Simvastatin* (Zocor*) 20 Mg Tablet, 20 MG PO QHS, #30 TAB 04/03/17 Calcium Citrate/Vitamin D2 (Calcium with Vit D Tablet) 1 Each Tablet, 1 EACH PO, TAB 12/06/16 Ranitidine Hcl* (Ranitidine Hcl*) 150 Mg Tablet, 150 MG PO HS, #30 TAB 12/06/16 Paroxetine Hcl* (Paroxetine*) 40 Mg Tablet, 40 MG PO DAILY, TAB 10/09/16 Follow-up Plan Follow-up with primary care physician in 1 week. Primary Care Provider Not On Staff Doctor Pending Labs Laboratory Tests Test 07/11/18 17:01 07/11/18 21:26 07/12/18 05:13 07/12/18 08:14 Bedside 227 138 151 Glucose mg/dL (70-220) mg/dL (70-220) mg/dL (70-220) White Blood 5.7 Count 10^3/ul (4.8-1 0.8) Red Blood 3.06 Count 10^6/ul (4.20- 5.40) Hemoglobin 8.0 g/dl (12.0-16. 0) Hematocrit 27.1 % (37.0-47.0) Mean 88.6 Corpuscular fl (82.0-101.0 Volume ) Mean 26.1 Corpuscular pg (29.0-33.0) Hemoglobin Mean 29.5 Corpuscular g/dl (32.0-37. Hemoglobin Conc 0) ent Red Cell 16.2 Distribution % (11.5-14.5) Width Platelet Count 260 10^3/UL (140-4 15) Mean Platelet 8.5 Volume fl (7.4-10.4) Immature 0.700 Granulocytes % % (0.001-0.429 ) Neutrophils % 63.3 % (39.0-77.0) Lymphocytes % 23.8 % (15.0-51.0) Monocytes % 10.1 % (0.0-11.0) Eosinophils % 1.2 % (0.0-7.0) Basophils % 0.9 % (0.0-2.0) Nucleated Red 0.0 Blood Cells % /100WBC (0.0-0 .0) Immature 0.040 Granulocytes # 10^3/ul (0.0-0 .031) Neutrophils # 3.6 10^3/ul (1.6-7 .5) Lymphocytes # 1.4 10^3/ul (0.8-2 .9) Monocytes # 0.6 10^3/ul (0.3-0 .9) Eosinophils # 0.1 10^3/ul (0.0-0 .5) Basophils # 0.1 10^3/ul (0.0-0 .1) Nucleated Red 0.0 Blood Cells # 10^3/ul (0.0-0 .0) Sodium Level 142 mmol/L (135-14 4) Potassium 3.6 Level mmol/L (3.5-5. 1) Chloride Level 104 mmol/L (97-110 ) Carbon Dioxide 33 Level mmol/L (21-31) Anion Gap 5 (5-13) Blood Urea 19 Nitrogen mg/dl (7-20) Creatinine 0.45 mg/dl (0.44-1. 00) Est Glomerular > 60 Filtrat mL/min (>60) Rate mL/min Glucose Level 163 mg/dl (70-220) Calcium Level 8.4 mg/dl (8.4-10. 2) MANE MATA NP Jul 12, 2018 11:48
[2018-07-12] MEDS: ALPRAZOLAM 0.5 MG TAB PO PRN (15:32)
== END 2018-07-12 20:35 | disposition home or self-care (01) | DRG 639 ==
LOC: E/R 18:43 → 6WM 21:29
PROVIDERS: ADMIT Family Medicine; ATTEND Family Medicine
DX: E11.649 Type 2 diabetes mellitus with hypoglycemia without coma (principal); N17.9 Acute kidney failure, unspecified; E03.9 Hypothyroidism, unspecified; F32.9 Major depressive disorder, single episode, unspecified; G47.33 Obstructive sleep apnea (adult) (pediatric); D50.9 Iron deficiency anemia, unspecified; I10 Essential (primary) hypertension; F17.200 Nicotine dependence, unspecified, uncomplicated; E66.9 Obesity, unspecified; Z68.29 Body mass index [BMI] 29.0-29.9, adult; E78.5 Hyperlipidemia, unspecified; F41.9 Anxiety disorder, unspecified; G89.29 Other chronic pain; E55.9 Vitamin D deficiency, unspecified
CPT/HCPCS: 36415; 70450; 71045; 73562; 80048; 80061; 80307; 81001; 82607; 82652; 82746; 82962; 83036; 84439; 84443; 84484; 85025; 85610; 85730; 93005; 94640; 94660; 94664; 96374; 96375; J1170; J1644; J1815; J1940; J2270; J2405; J7030; J7042

== ENCOUNTER 2018-08-21 11:57 | Day surgery (SDC) | payer BC ==
[~2018-08-21] VITALS: Ht 152.4 cm; Wt 69.0 kg
[~2018-08-21 11:57] MED LIST changes: -ATEN50TA PO; -FURO20TA3 PO; -GABA300C16 PO; +IBUP-1542 PO; -INSU100I17 SQ; -INSU100I33 SC; +LYR75 PO; -PANT40TA3 PO; -PARO40TA79 PO; -TRAM50TA PO
[2018-08-21 12:59] VITALS: Ht 152.4 cm; Wt 69.0 kg
[2018-08-21] MEDS ORDERED: LIDOCAINE (13:14)
[2018-08-21] MEDS ORDERED: GABA100C14 PO (13:14)
[2018-08-21] MEDS ORDERED: ALBU18HF INHALATION (13:14)
[2018-08-21] MEDS ORDERED: PARO40TA63 PO (13:14)
[2018-08-21] MEDS ORDERED: EMPA10TA PO (13:14)
[2018-08-21] MEDS ORDERED: METOCLOPRAM (13:14)
[2018-08-21] MEDS ORDERED: INSU100I33 SC (13:14)
[2018-08-21] MEDS ORDERED: ATEN100T PO (13:14)
[2018-08-21] MEDS ORDERED: CYCL10TA7 PO (13:14)
[2018-08-21] MEDS ORDERED: DULO60CA59 PO (13:14)
[2018-08-21] MEDS ORDERED: PROPOFOL 20 ML ONE (13:50)
[2018-08-21 13:52] VITALS: BP 145/65; PULSE 48; RESP 20
--- NOTE | 2018-08-21 13:52 | PREAC ---
Date/Time of Note Date/Time of Note DATE: 08/21/18 TIME: 13:52 Anesthesia Eval and Record Evaluation Time Pre-Procedure Interview DATE: 08/21/18 TIME: 13:52 Age 63 Sex female NPO: 8 hrs Preoperative diagnosis Dysphagia Planned procedure EGD Past Medical History Past Medical History: Includes Cardio: HTN, Dyslipidemia, CHF Endo: Diabetes, Hypothyroid Pulm: Smoking Hx, COPD, Asthma Musculoskeletal: Osteoarthritis GI: Obesity Heme: Anemia Surgery & Anesthesia Issues No known issue Meds Anticoagulation: No Beta April within 24 hr: Yes Active Scripts Metformin Hcl* (Metformin Hcl*) 1,000 Mg Tablet, 500 MG PO AC BREAKFAST, #60 TAB Prov:MATA,MANE V. ONCOLOGY REP SPECIALIST 07/12/18 Ergocalciferol (Vitamin D2) (VITAMIN D2) 50,000 Unit Capsule, 47470 UNIT PO QMON, #8 CAP Prov:MATA,MANE V. ONCOLOGY REP SPECIALIST 07/12/18 Reported Medications Duloxetine Hcl* (Duloxetine Hcl*) 60 Mg Capsule.dr, 60 MG PO DAILY, #30 CAP 08/21/18 [Metoclopram] No Conflict Check, 10 08/21/18 Cyclobenzaprine Hcl* (Cyclobenzaprine Hcl*) 10 Mg Tablet, 10 MG PO Q8 PRN for PAIN LEVEL 6-10, #60 TAB 08/21/18 Paroxetine Hcl* (Paxil*) 40 Mg Tablet, 40 MG PO DAILY, TAB 08/21/18 Empagliflozin (Jardiance) 10 Mg Tablet, 10 MG PO, TAB 08/21/18 Atenolol* (Atenolol*) 100 Mg Tablet, 100 MG PO DAILY, #30 TAB 08/21/18 Insulin Glargine,Hum.rec.anlog (Basaglar Kwikpen U-100) 100 Unit/1 Ml Insuln.pen, 100 UNIT SC, EA 08/21/18 [Llidocaine Patch] No Conflict Check, 5 08/21/18 Gabapentin* (Gabapentin*) 100 Mg Capsule, 100 MG PO TID, #90 CAP 08/21/18 Albuterol Sulfate* (Ventolin HFA*) 18 Gm Hfa.aer.ad, 2 PUFF INHALATION Q4H, #1 INHALER 08/21/18 Levothyroxine Sodium* (Levoxyl*) 175 Mcg Tablet, 175 MCG PO BEFORE BREAKFAST, #30 TAB 11/29/17 Duloxetine Hcl* (Duloxetine Hcl*) 60 Mg Capsule.dr, 120 MG PO DAILY, #30 CAP 11/29/17 Hydrocodone/Acetaminophen ([place] 10-325 Tablet) 1 Each Tablet, 1 EACH PO Q4 PRN for PAIN, TAB 11/29/17 Simvastatin* (Zocor*) 20 Mg Tablet, 20 MG PO QHS, #30 TAB 04/03/17 Ranitidine Hcl* (Ranitidine Hcl*) 150 Mg Tablet, 150 MG PO HS, #30 TAB 12/06/16 Discontinued Reported Medications Ferrous Sulfate* (Ferrous Sulfate*) 325 Mg Tabec, 325 MG PO DAILY, TAB 04/03/17 Calcium Citrate/Vitamin D2 (Calcium with Vit D Tablet) 1 Each Tablet, 1 EACH PO, TAB 12/06/16 Discontinued Scripts Pregabalin* (Lyrica*) 75 Mg Capsule, 75 MG PO BID, #60 CAP Prov:MATAMANE V. ONCOLOGY REP SPECIALIST 07/12/18 Ibuprofen* (Ibuprofen*) 600 Mg Tablet, 600 MG PO Q6H PRN for MILD PAIN LEVEL 1- 3, #90 TAB Prov:MATAMANE V. ONCOLOGY REP SPECIALIST 07/12/18 Meds reviewed: Yes Allergies Coded Allergies: sulfamethoxazole (Unverified Allergy, Mild, 11/29/17) trimethoprim (Unverified Allergy, Mild, 11/29/17) Allergies Reviewed: Yes Labs/Studies Labs Reviewed: Reviewed by anesthesiologist test: N/A Pre-procedure Exam Airway: Adequate mouth opening Mallampati: Mallampati II Teeth: Normal Lung: Normal Heart: Normal ASA Physical Status ASA physical status: 3 Emergency: None Planned Anesthetic General/MAC: MAC Planned Pain Management Parenteral pain med Pre-operative Attestations Prior to commencing anesthesia and surgery, the patient was re-evaluated, there was verification of: *The patient's identity *The results of appropriate recent lab work and preoperative vital signs *The above evaluation not changing prior to induction *Anesthetic plan, risk benefits, alternative and complications discussed with patient/family; questions answered; patient/family understands, accepts and wishes to proceed. LESLIE CARR MD Aug 21, 2018 13:52
[2018-08-21] MEDS ORDERED: ATROPINE 1 MG/10 ML SYRINGE ONE (14:11)
--- NOTE | 2018-08-21 14:33 | HPN ---
Date/Time of Note Date/Time of Note DATE: 08/21/18 TIME: 14:33 Interval H&P Admission Note Pt. seen H&P reviewed: No system changes SHALA DEJESUS Aug 21, 2018 14:33
[2018-08-21 14:53] VITALS: BP 158/68; PULSE 58; RESP 20
--- NOTE | 2018-08-21 15:00 | PAC ---
Date/Time of Note Date/Time of Note DATE: 08/21/18 TIME: 15:00 Post-Anesthesia Notes Post-Anesthesia Note Last documented vital signs Vital Signs Date Temp Pulse Resp B/P (MAP) Pulse Ox O2 O2 Flow FiO2 Time Delivery Rate 08/21/18 58 20 158/68 98 Room Air 14:53 (98) 08/21/18 97.9 13:52 Activity: WNL Respiratory function: WNL Cardiovascular function: WNL Mental status: Baseline Pain reasonably controlled: Yes Hydration appropriate: Yes Nausea/Vomiting absent: Yes LESLIE CARR MD Aug 21, 2018 15:00
== END 2018-08-21 16:24 | disposition home or self-care (01) ==
LOC: GIL 11:57
PROVIDERS: ATTEND Internal Medicine Gastroenterology
DX: K29.50 Unspecified chronic gastritis without bleeding (principal); E11.9 Type 2 diabetes mellitus without complications; E78.00 Pure hypercholesterolemia, unspecified; I11.0 Hypertensive heart disease with heart failure; I50.9 Heart failure, unspecified; J44.9 Chronic obstructive pulmonary disease, unspecified; F17.200 Nicotine dependence, unspecified, uncomplicated
CPT/HCPCS: 43239; 82962; 88305; 88312; Z7610; J0461

== ENCOUNTER 2018-10-01 14:35 | Inpatient (IN) | payer BC, OTHER ==
[~2018-10-01] VITALS: Ht 152.4 cm; Wt 70.0 kg
[2018-10-01 01:00] VITALS: BMI 30.1
[~2018-10-01 14:35] MED LIST changes: +ALBU18HF INHALATION; +ATEN100T PO; +CYCL10TA7 PO; +EMPA10TA PO; -FER325 PO; +GABA100C14 PO; -IBUP-1542 PO; +INSU100I33 SC; +LIDOCAINE; -LYR75 PO; +METOCLOPRAM; +PARO40TA63 PO; -[UNRECOGNIZED DRUG - CODE] PO
[2018-10-01 14:45] VITALS: Ht 152.4 cm; Wt 70.0 kg
--- NOTE | 2018-10-01 17:40 | ERD ---
ER Documentation Chief Complaint Chief Complaint chest pain , b/l leg swelling , sob , burning urination, nausea x 3 days HPI The patient is a 63-year-old female, presented to the ER because of multiple complaints, she complained of dizziness, substernal chest discomfort with dyspnea intermittently with bilateral leg edema for the last 2 days. She denies syncope, near syncope, neck pain, chest pain with vomiting/radiation/exert ion/diaphoresis, abdominal pain, vomiting, diarrhea. She does not smoke nor drink. She used to smoke until 3 months ago, she used 3 L nasal cannula continuously Medical history: Diabetes mellitus, anxiety, depression, hypertension, hypothyroidism, dyslipidemia, COPD, history of CHF, anemia, chronic pain syndrome Past surgical history: CABG ROS All systems reviewed and are negative except as per history of present illness. Medications Home Meds Active Scripts Metformin Hcl* (Metformin Hcl*) 1,000 Mg Tablet, 500 MG PO AC BREAKFAST, #60 TAB Prov:MANE MATA V. 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 07/12/18 Reported Medications Duloxetine Hcl* (Duloxetine Hcl*) 60 Mg Capsule.dr, 60 MG PO DAILY, #30 CAP 08/21/18 [Metoclopram] No Conflict Check, 10 08/21/18 Cyclobenzaprine Hcl* (Cyclobenzaprine Hcl*) 10 Mg Tablet, 10 MG PO Q8 PRN for PAIN LEVEL 6-10, #60 TAB 08/21/18 Paroxetine Hcl* (Paxil*) 40 Mg Tablet, 40 MG PO DAILY, TAB 08/21/18 Empagliflozin (Jardiance) 10 Mg Tablet, 10 MG PO, TAB 08/21/18 Atenolol* (Atenolol*) 100 Mg Tablet, 100 MG PO DAILY, #30 TAB 08/21/18 Insulin Glargine,Hum.rec.anlog (Basaglar Kwikpen U-100) 100 Unit/1 Ml Insuln.pen, 100 UNIT SC, EA 08/21/18 [Llidocaine Patch] No Conflict Check, 5 08/21/18 Gabapentin* (Gabapentin*) 100 Mg Capsule, 100 MG PO TID, #90 CAP 08/21/18 Albuterol Sulfate* (Ventolin HFA*) 18 Gm Hfa.aer.ad, 2 PUFF INHALATION Q4H, #1 INHALER 08/21/18 Levothyroxine Sodium* (Levoxyl*) 175 Mcg Tablet, 175 MCG PO BEFORE BREAKFAST, #30 TAB 11/29/17 Duloxetine Hcl* (Duloxetine Hcl*) 60 Mg Capsule.dr, 120 MG PO DAILY, #30 CAP 11/29/17 Hydrocodone/Acetaminophen ([place] 10-325 Tablet) 1 Each Tablet, 1 EACH PO Q4 PRN for PAIN, TAB 11/29/17 Simvastatin* (Zocor*) 20 Mg Tablet, 20 MG PO QHS, #30 TAB 04/03/17 Ranitidine Hcl* (Ranitidine Hcl*) 150 Mg Tablet, 150 MG PO HS, #30 TAB 12/06/16 Allergies Allergies: Coded Allergies: sulfamethoxazole (Unverified Allergy, Mild, 11/29/17) trimethoprim (Unverified Allergy, Mild, 11/29/17) PMhx/Soc History of Surgery: No Anesthesia Reaction: No Hx Neurological Disorder: No Hx Respiratory Disorders: Yes (COPD) Hx Cardiac Disorders: Yes (CHF, HTN) Hx Psychiatric Problems: No Hx Miscellaneous Medical Probl: Yes (DM) Hx Alcohol Use: No Hx Substance Use: No Hx Tobacco Use: No Smoking Status: Never smoker Physical Exam Vitals Vital Signs Date Temp Pulse Resp B/P (MAP) Pulse Ox O2 O2 Flow FiO2 Time Delivery Rate 10/01/18 97.8 60 18 162/64 98 Room Air 3.0 20:40 (96) 10/01/18 97.8 65 18 160/64 98 Room Air 3.0 19:53 (96) 10/01/18 97.8 67 18 150/57 98 Room Air 3.0 18:45 (88) 10/01/18 Nasal 3 18:38 Cannula 10/01/18 97.8 57 18 177/77 98 Room Air 3.0 17:35 (110) 10/01/18 97.8 62 18 173/72 98 14:45 (105) Physical Exam Const: No acute distress. Head: Atraumatic. Eyes: Normal Conjunctiva. ENT: Normal External Ears, Nose and Mouth. Neck: Full range of motion. No meningismus. Resp: Bibasilar crackle, tachypneic Cardio: Regular rate and rhythm. Abd: Soft, non distended, normal bowel sounds, non tender. Skin: No petechiae or rashes. Back: No midline or flank tenderness. Ext: Bilateral leg edema, no calf tenderness Neur: Awake and alert. No focal deficit Psych: Normal Mood and Affect. Result Diagram: 10/01/18 1745 10/01/18 1745 Results 24 hrs Laboratory Tests Test 10/01/18 16:29 10/01/18 17:45 10/01/18 18:50 Bedside Glucose 99 mg/dL 82 mg/dL White Blood Count 4.2 10^3/ul Red Blood Count 4.08 10^6/ul Hemoglobin 10.8 g/dl Hematocrit 36.8 % Mean Corpuscular Volume 90.2 fl Mean Corpuscular Hemoglobin 26.5 pg Mean Corpuscular Hemoglobin Concent 29.3 g/dl Red Cell Distribution Width 17.3 % Platelet Count 374 10^3/UL Mean Platelet Volume 9.0 fl Immature Granulocytes % 0.200 % Neutrophils % 60.0 % Lymphocytes % 24.8 % Monocytes % 10.3 % Eosinophils % 3.3 % Basophils % 1.4 % Nucleated Red Blood Cells % 0.0 /100WBC Immature Granulocytes # 0.010 10^3/ul Neutrophils # 2.5 10^3/ul Lymphocytes # 1.0 10^3/ul Monocytes # 0.4 10^3/ul Eosinophils # 0.1 10^3/ul Basophils # 0.1 10^3/ul Nucleated Red Blood Cells # 0.0 10^3/ul Prothrombin Time 12.9 Sec Prothrombin Time Ratio 1.0 INR International Normalized Ratio 0.96 Activated Partial Thromboplast Time 34.4 Sec Sodium Level 141 mmol/L Potassium Level 4.4 mmol/L Chloride Level 95 mmol/L Carbon Dioxide Level 38 mmol/L Anion Gap 8 Blood Urea Nitrogen 26 mg/dl Creatinine 0.63 mg/dl Est Glomerular Filtrat Rate mL/min > 60 mL/min Glucose Level 98 mg/dl Calcium Level 10.4 mg/dl Total Bilirubin 0.1 mg/dl Direct Bilirubin 0.00 mg/dl Indirect Bilirubin 0.1 mg/dl Aspartate Amino Transf (AST/SGOT) 37 IU/L Alanine Aminotransferase (ALT/SGPT) 23 IU/L Alkaline Phosphatase 166 IU/L Troponin I < 0.012 ng/ml B-Type Natriuretic Peptide 2070 PG/ML Total Protein 7.4 g/dl Albumin 3.9 g/dl Globulin 3.50 g/dl Albumin/Globulin Ratio 1.11 Current Medications Medications Dose Sig/Moose Start Time Status Last (Trade) Ordered Route PRN Stop Time Admin Dose Reason Admin Ondansetron 4 mg ONCE STAT 10/01/18 DC 10/01/18 HCl (Zofran ODT 18:26 10/01/18 18:43 Odt) 18:27 Meclizine 25 mg ONCE ONCE 10/01/18 DC 10/01/18 HCl PO 18:30 10/01/18 18:43 (Antivert) 18:31 Furosemide 40 mg ONCE ONCE 10/01/18 DC 10/01/18 (Lasix) IV 20:00 10/01/18 20:03 20:01 IV Flush 3 ml PER 10/01/18 (NS 3 ml) PROTOCOL IV 20:30 Ondansetron 4 mg Q6H PRN 10/01/18 HCl (Zofran IV 20:30 Inj) NAUSEA/VOMITI NG 1 tab Q5M PRN 10/01/18 Nitroglycerin SL .CHEST 20:30 PAIN (Nitroglyceri n (Sl Tab) 0.4 Mg) 650 mg Q6H PRN 10/01/18 Acetaminophen PO .PAIN 1-3 20:30 (Tylenol OR TEMP Tab) Docusate 100 mg Q12H PRN 10/01/18 Sodium PO 20:30 (Colace) .CONSTIPATION Bisacodyl 5 mg DAILY PRN 10/01/18 (Dulcolax) PO 20:30 .CONSTIPATION Enoxaparin 40 mg DAILY SC 10/02/18 Sodium 09:00 (Lovenox) Furosemide 40 mg BID 10/02/18 (Lasix) DIURETICS 06:00 IV 1 tab ONCE ONCE 10/01/18 DC Acetaminophen PO 20:30 10/01/18 / 20:31 Hydrocodone Bitart ([place] (5/325)) Procedures/[address] [address] Radiology Main Line: [phone] DIAGNOSTIC IMAGING REPORT Patient: ATILIO HARRELL : 1955 Age: 63 Sex: F MR #: [id number] DOS: 10/01/18 1826 Ordering MD: HERI PLUNKETT MD Location: E/R Room/Bed: PROCEDURE: Noncontrast CT Head. CLINICAL INDICATION: Dizziness TECHNIQUE: Noncontrast CT of the head was obtained. The administered radiation dose was CTDI vol = 39 mGy, DLP = 634 mGy-cm. DICOM images are available. One or more of the following dose reduction techniques were used: Automated exposure control, Adjustment of the mA and/or kV according to patient size, or Use of iterative reconstruction technique. COMPARISON: CT brain 07/10/2018 FINDINGS: There is no acute intracranial hemorrhage, midline shift, or mass effect. The cerebral young-white matter differentiation appears preserved. No extra-axial collection is seen. There is mild diffuse cerebral volume loss with compensatory diffuse mild cerebral sulcal and ventricular enlargement, stable. Mild low attenuation scattered in the periventricular, deep, and juxta cortical cerebral white matter is nonspecific, but suggestive of mild chronic microangiopathic change, stable. Left frontal opercular small calcification measuring up to 7 mm is nonspecific and stable (series 2, image 7). The basilar cisterns are preserved. The brainstem and cerebellum are grossly unremarkable, although suboptimally evaluated with CT secondary to beam-hardening artifact. There is intracranial calcific atherosclerotic disease involving the internal carotid arteries bilaterally. The partially imaged orbits are unremarkable. The visualized paranasal sinuses and mastoid air cells are well-aerated. No acute calvarial fracture or destructive osseous lesion is detected. IMPRESSION: 1. No acute intracranial hemorrhage, mass effect, extra-axial fluid collection, or evidence of large vascular territory acute transcortical infarct. If there is clinical concern for acute ischemia, MRI brain with diffusion weighted imaging may provide a more sensitive evaluation. 2. Mild diffuse cerebral volume loss, stable. 3. Evidence of mild chronic idiopathic cerebral white matter change, stable. 4. Left frontal opercular 7 mm calcification, nonspecific but possibly sequelae of neurocysticercosis, stable. 5. Intracranial calcific atherosclerotic disease involving the internal carotid arteries bilaterally. Further findings as described above. RPTAT: HRC Physician Dragan Date Time Electronically viewed and signed by Physician Dragan on 10/01/2018 20: 16 RC/ CC: HERI PLUNKETT MD [id number] [place] [address] Radiology Main Line: [phone] DIAGNOSTIC IMAGING REPORT Patient: ATILIO HARRELL : 1955 Age: 63 Sex: F MR #: [id number] DOS: 10/01/18 1826 Ordering MD: HERI PLUNKETT MD Location: E/R Room/Bed: PROCEDURE: XR Chest. CLINICAL INDICATION: Dyspnea TECHNIQUE: Single frontal chest x-ray. COMPARISON: None available FINDINGS: Diminished lung volumes with compressive changes. Vascular crowding and bilateral basilar atelectasis. Patchy infiltration / effusion in the lung bases. Mild increased vascular congestion and volume overload. Moderate to severe enlargement of the cardiac silhouette. Soft tissues and bony structures are unremarkable. Post surgical median sternotomy wires overlying the midline chest. Chronic deformity of the right proximal humeral head. IMPRESSION: 1. Low lung volumes with compressive changes and basilar atelectasis. 2. Severe cardiomegaly with mild vascular congestion and volume overload. 3. Patchy infiltration and effusions at the lung bases. 4. Scattered benign chronic senescent changes. RPTAT: HMJB .Vishal Madera MD, MD Date Time Electronically viewed and signed by .Vishal Madera MD, MD on 10/01/2018 19:23 .B/ CC: HERI PLUNKETT MD [id number] EKG:at 2:57 pm Read by emergency physician Rate/Rhythm: Normal Sinus Rhythm 64 beats per min QRS, ST, T-waves: No ST elevation, no T wave inversion, LAD, low voltage Impression: Abnormal EKG MEDICAL MAKING DECISION: The patient is a 63-year-old female, presenting with acute dizziness, acute CHF exacerbation. She was treated with Antivert 25 mg p.o. for acute dizziness, Zofran ODT for nausea and Lasix 40 mg IV for acute CHF with good response. The differential diagnoses for acute dizziness considered include but are not limited to central causes such as cerebellar infarct, cerebellar hemorrhage, cerebellar tumor, acoustic neuroma, peripheral causes such as benign positional vertigo, labyrinthitis, medication, Meniere's disease. The differential diagnoses for acute dyspnea considered include but are not limited to asthma, COPD, pneumonia, pulmonary embolus, pleural effusion, CHF, ACS Departure Diagnosis: Primary Impression: CHF (congestive heart failure) Additional Impressions: Dizziness Anemia Leukopenia Condition: Stable Comments I discussed the findings with the patient. I discussed the patient with the hospitalist Dr Jackman at 8:05 pm who was made aware of the lab, the treatment, the patient condition. The patient is admitted to [facility] Disclaimer: Inadvertent spelling and grammatical errors are likely due to EHR/dictation software use and do not reflect on the overall quality of patient care. Also, please note that the electronic time recorded on this note does not necessarily reflect the actual time of the patient encounter. HERI PLUNKETT MD Oct 01, 2018 17:40
[2018-10-01] MEDS ORDERED: ONDANSETRON (ODT) 4 MG TAB ODT STA (18:26)
[2018-10-01] MEDS ORDERED: MECLIZINE 12.5 MG TAB PO ONE (18:30)
[2018-10-01] MEDS ORDERED: FUROSEMIDE 40 MG INJ IV ONE (20:00)
--- NOTE | 2018-10-01 20:10 | HP ---
Date/Time of Note Date/Time of Note DATE: 10/01/18 TIME: 20:10 Assessment/Plan VTE Prophylaxis SCD applied (from Nsg): Yes Pharmacological prophylaxis: NA/contraindicated Pharm contraindication: low risk/ambulating Lines/Catheters IV Catheter Type (from Nrsg): Saline Lock Assessment/Plan Hospital Course This is a 63-year-old female being admitted to the telemetry floor for: #1 Acute on chronic diastolic chf exacerbation: bnp 2000+ today which is elevated from previous. Echo in 05/2018 showed EF of 55% with grade 1 diastolic dysnfunction. Will get echo to assess current function and morphology. Will pr ovide Diuresis with IV lasix 40mg iv bid. 1200cc fluid restriction and low salt diet. Consult cardio Dr. platt. Daily weights. Bird catheter at the current time for diuresis as patient does have chronic back pain that limits her movement in and out of bed. #2 diabetes mellitus: Patient's last hemoglobin A1c was noted to be 5.9 in 07/2018, at the current time we will check a repeat hemoglobin A1c level. Currently not on any insulin. Monitor closely. #3 chest pain: Likely secondary to seizure exacerbation. Will trend cardiac enzymes x3, the first of negative. #4 hypothyroidism: Check TSH, continue Synthroid #5 depression: Continue Cymbalta as indicated #6 obstructive sleep apnea: Continue CPAP at night after confirming patient's home dose. #7 history of iron deficiency anemia: Continue ferrous sulfate #8 history of left-sided colitis status post resection: Currently no acute issues #9 COPD: PRN nebs, continue supplemental oxygen of 2 L. #10 DVT GI prophylaxis: SCDs, no GI prophylaxis indicated Result Diagram: 10/01/18 1745 10/01/18 1745 Results 24hrs Laboratory Tests Test 10/01/18 16:29 10/01/18 17:45 10/01/18 18:50 Bedside Glucose 99 82 White Blood Count 4.2 #L Red Blood Count 4.08 #L Hemoglobin 10.8 #L Hematocrit 36.8 #L Mean Corpuscular Volume 90.2 Mean Corpuscular Hemoglobin 26.5 L Mean Corpuscular Hemoglobin Concent 29.3 L Red Cell Distribution Width 17.3 H Platelet Count 374 # Mean Platelet Volume 9.0 Immature Granulocytes % 0.200 Neutrophils % 60.0 Lymphocytes % 24.8 Monocytes % 10.3 Eosinophils % 3.3 Basophils % 1.4 Nucleated Red Blood Cells % 0.0 Immature Granulocytes # 0.010 Neutrophils # 2.5 Lymphocytes # 1.0 Monocytes # 0.4 Eosinophils # 0.1 Basophils # 0.1 Nucleated Red Blood Cells # 0.0 Prothrombin Time 12.9 Prothrombin Time Ratio 1.0 INR International Normalized Ratio 0.96 Activated Partial Thromboplast Time 34.4 Sodium Level 141 Potassium Level 4.4 Chloride Level 95 L Carbon Dioxide Level 38 H Anion Gap 8 Blood Urea Nitrogen 26 H Creatinine 0.63 Est Glomerular Filtrat Rate mL/min > 60 Glucose Level 98 Calcium Level 10.4 H Total Bilirubin 0.1 L Direct Bilirubin 0.00 Indirect Bilirubin 0.1 Aspartate Amino Transf (AST/SGOT) 37 Alanine Aminotransferase (ALT/SGPT) 23 Alkaline Phosphatase 166 H Troponin I < 0.012 B-Type Natriuretic Peptide 2070 H Total Protein 7.4 Albumin 3.9 Globulin 3.50 H Albumin/Globulin Ratio 1.11 HPI/ROS Admit Date/Time Admit Date/Time Hx of Present Illness cc: chest pain, lower extremity edema. The patient is a 63-year-old female, presented to the ER because of multiple com plaints, she complained of dizziness, substernal chest discomfort with dyspnea intermittently with bilateral leg edema for the last 2 days. She denies syncope, near syncope, neck pain, chest pain with vomiting/radiation/exertion/diaphoresis, abdominal pain, vomiting, diarrhea. She does not smoke nor drink. She used to smoke until 3 months ago, she is currently on 2 L of home oxygen. Allergies: Bactrim Medications: See BHARGAV WRIGHT Const: As per HPI Eyes : No pain discharge or redness or change in visual acuity ENT: No pain, sore throat, congestion, congestion, dysphagia or discharge Respiratory: As per HPI Cardiovascular: As per HPI GI : no change in appetite, abdominal pain, nausea, vomiting, diarrhea, constipation, or change in the color his stool Genitourinary: No dysuria, hematuria, flank pain , discharge or CVA tenderness Musculoskeletal: As per HPI Skin: No rash, bruising or hives Neuro: No headache, dizziness, syncope, seizure, focal weakness Endocrine: No polyuria, polydipsia, temperature intolerance Psych: No hallucination, depression, anxiety or suicidal ideation PMH/Family/Social Past Medical History left-sided colitis status post resection, diabetes, hypertension, depression, sleep apnea, Coronary artery disease, recurrent diverticulitis, chronic back pain Coded Allergies: sulfamethoxazole (Unverified Allergy, Mild, 11/29/17) trimethoprim (Unverified Allergy, Mild, 11/29/17) Past Surgical History , history of total abdominal hysterectomy, history of previous hernia surgery and back surgery, exploratory laparotomy and placement of diverting transverse colostomy, Open Heart Surgery for Patent Foramen Ovale, laminectomy at L3-L4 and L4-L5. Family History Significant Family History: no pertinent family hx Social History Alcohol Use: none Smoking Status: Former smoker Drug Use: none Exam/Review of Systems Vital Signs Vitals Vital Signs Date Temp Pulse Resp B/P (MAP) Pulse Ox O2 O2 Flow FiO2 Time Delivery Rate 10/01/18 97.8 65 18 160/64 98 Room Air 3.0 19:53 (96) Exam Exam General: Patient is pleasant female currently lying in bed in no acute distress HEENT: Atraumatic, normocephalic. The pupils are equal, round and reactive. Extraocular motor are intact Neck: Supple with full range of motion. No rigidity or meningismus Chest: Nontender Lungs: Coarse breath sounds bilaterally, bilateral rales at the bases Heart: Normal S1-S2, Regular rhythm and rate. Abdomen: Soft , nontender, nondistended , bowel sounds are present. No guarding no rebound tenderness , No masses or organomegaly. No costovertebral temporal angle mass Extremities: 1+ pitting edema in the bilateral lower extremities Neurologic: Normal mental status, speech normal, cranial nerves II through XII are intact, motor and sensory are intact, no focal weakness Additional Comments PROCEDURE: Noncontrast CT Head. EKG Rate/Rhythm: Normal Sinus Rhythm 64 beats per min QRS, ST, T-waves: No ST elevation, no T wave inversion, LAD, low voltage CLINICAL INDICATION: Dizziness TECHNIQUE: Noncontrast CT of the head was obtained. The administered radiation dose was CTDI vol = 39 mGy, DLP = 634 mGy-cm. DICOM images are available. One or more of the following dose reduction techniques were used: Automated exposure control, Adjustment of the mA and/or kV according to patient size, or Use of iterative reconstruction technique. COMPARISON: CT brain 07/10/2018 FINDINGS: There is no acute intracranial hemorrhage, midline shift, or mass effect. The cerebral young-white matter differentiation appears preserved. No extra-axial collection is seen. There is mild diffuse cerebral volume loss with compensatory diffuse mild cerebral sulcal and ventricular enlargement, stable. Mild low attenuation scattered in the periventricular, deep, and juxta cortical cerebral white matter is nonspecific, but suggestive of mild chronic microangiopathic change, stable. Left frontal opercular small calcification measuring up to 7 mm is nonspecific and stable (series 2, image 7). The basilar cisterns are preserved. The brainstem and cerebellum are grossly unremarkable, although suboptimally evaluated with CT secondary to beam-hardening artifact. There is intracranial calcific atherosclerotic disease involving the internal carotid ar teries bilaterally. The partially imaged orbits are unremarkable. The visualized paranasal sinuses and mastoid air cells are well-aerated. No acute calvarial fracture or destructive osseous lesion is detected. IMPRESSION: 1. No acute intracranial hemorrhage, mass effect, extra-axial fluid collection, or evidence of large vascular territory acute transcortical infarct. If there is clinical concern for acute ischemia, MRI brain with diffusion weighted imaging may provide a more sensitive evaluation. 2. Mild diffuse cerebral volume loss, stable. 3. Evidence of mild chronic idiopathic cerebral white matter change, stable. 4. Left frontal opercular 7 mm calcification, nonspecific but possibly sequelae of neurocysticercosis, stable. 5. Intracranial calcific atherosclerotic disease involving the internal carotid arteries bilaterally. Further findings as described above. RPTAT: HRC Physician Dragan Date Time Electronically viewed and signed by Physician Dragan on 10/01/2018 20:16 RC/ CC: HERI PLUNKETT MD [id number] PROCEDURE: XR Chest. CLINICAL INDICATION: Dyspnea TECHNIQUE: Single frontal chest x-ray. COMPARISON: None available FINDINGS: Diminished lung volumes with compressive changes. Vascular crowding and bilateral basilar atelectasis. Patchy infiltration / effusion in the lung bases. Mild increased vascular congestion and volume overload. Moderate to severe enlargement of the cardiac silhouette. Soft tissues and bony structures are unremarkable. Post surgical median sternotomy wires overlying the midline chest. Chronic deformity of the right proximal humeral head. IMPRESSION: 1. Low lung volumes with compressive changes and basilar atelectasis. 2. Severe cardiomegaly with mild vascular congestion and volume overload. 3. Patchy infiltration and effusions at the lung bases. 4. Scattered benign chronic senescent changes. RPTAT: HMJB .Vishal Madera MD, MD Date Time Electronically viewed and signed by .Vishal Madera MD, MD on 10/01/2018 19:23 .B/ CC: HERI PLUNKETT MD [id number] MARY GUO Oct 01, 2018 20:10
[2018-10-01] MEDS ORDERED: ACETAMINOPHEN 325 MG TAB PO PRN (20:30)
[2018-10-01] MEDS ORDERED: DOCUSATE SODIUM 100 MG CAP PO PRN (20:30)
[2018-10-01] MEDS ORDERED: NACL 0.9% 3 ML SYG IV SCH (20:30)
[2018-10-01] MEDS ORDERED: ONDANSETRON 4 MG INJ IV PRN (20:30)
[2018-10-01] MEDS ORDERED: HYDROCODONE/APAP (5/325) TAB PO ONE (20:30)
[2018-10-01] MEDS ORDERED: BISACODYL (EC) 5 MG TAB PO PRN (20:30)
[2018-10-01] MEDS ORDERED: NITROGLYCERIN (SL) 0.4 MG TAB SL PRN (20:30)
[2018-10-02] VITALS (12 sets, daily range): BP systolic 126–172; BP diastolic 58–84; PULSE 46–78; RESP 18–20
[2018-10-02] MEDS ORDERED: hydrALAzine 20 MG INJ IV PRN (02:00)
[2018-10-02] MEDS ORDERED: morphine 2 MG INJ IV PRN (02:00)
[2018-10-02] MEDS: traMADol 50 MG TAB PO PRN (02:46)
[2018-10-02] MEDS: HYDROCODONE/APAP (10/325) TAB PO PRN ×5 (03:16→22:33)
[2018-10-02] MEDS ORDERED: ALBUTEROL HFA 8 GM INHALER INH PRN (05:30)
[2018-10-02] MEDS ORDERED: CYCLOBENZAPRINE 10 MG TAB PO PRN (05:30)
[2018-10-02] MEDS: FUROSEMIDE 40 MG INJ IV SCH ×2 (06:59→17:42)
[2018-10-02] MEDS: PAROXETINE 20 MG TAB PO SCH (08:24)
[2018-10-02] MEDS: GABAPENTIN 100 MG CAP PO SCH ×3 (08:26→20:38)
[2018-10-02] MEDS: ATENOLOL 100 MG TAB PO SCH (08:26)
[2018-10-02] MEDS: LEVOTHYROXINE 175 MCG TAB PO SCH (08:26)
[2018-10-02] MEDS ORDERED: ENOXAPARIN 40 MG/0.4 ML SYG SC SCH (09:00)
--- NOTE | 2018-10-02 15:32 | PN ---
Date/Time of Note Date/Time of Note DATE: 10/02/18 TIME: 15:31 Assessment/Plan VTE Prophylaxis Risk score (from Nsg)>0 risk: 3 SCD applied (from Nsg): Yes Pharmacological prophylaxis: LMWH Lines/Catheters IV Catheter Type (from Nrsg): Saline Lock Urinary Cath still in place: No Assessment/Plan Assessment/Plan 1. Right sided CHF, multiple reasons including COPD(smoker for 50 years), sleep apnea, and late repair of ASD, echo to evaluate PAP 2. H/o ASD repair in [facility] when she was 26 years old 3. Sleep apnea 4. Obesity 5. Hypothyroidism, on synthroid 6. Depression, add remeron for poor appetite 7. DVT prophylaxis: lovenox Result Diagram: 10/02/1848 10/02/18 0648 Results 24hrs Laboratory Tests Test 10/01/18 16:29 10/01/18 17:45 10/01/18 18:50 10/01/18 20:40 Bedside Glucose 99 82 White Blood Count 4.2 #L Red Blood Count 4.08 #L Hemoglobin 10.8 #L Hematocrit 36.8 #L Mean Corpuscular Volume 90.2 Mean Corpuscular 26.5 L Hemoglobin Mean Corpuscular 29.3 L Hemoglobin Concent Red Cell Distribution 17.3 H Width Platelet Count 374 # Mean Platelet Volume 9.0 Immature Granulocytes % 0.200 Neutrophils % 60.0 Lymphocytes % 24.8 Monocytes % 10.3 Eosinophils % 3.3 Basophils % 1.4 Nucleated Red Blood 0.0 Cells % Immature Granulocytes # 0.010 Neutrophils # 2.5 Lymphocytes # 1.0 Monocytes # 0.4 Eosinophils # 0.1 Basophils # 0.1 Nucleated Red Blood 0.0 Cells # Prothrombin Time 12.9 Prothrombin Time Ratio 1.0 INR International 0.96 Normalized Ratio Activated 34.4 Partial Thromboplast Time Sodium Level 141 Potassium Level 4.4 Chloride Level 95 L Carbon Dioxide Level 38 H Anion Gap 8 Blood Urea Nitrogen 26 H Creatinine 0.63 Est Glomerular Filtrat > 60 Rate mL/min Glucose Level 98 Calcium Level 10.4 H Total Bilirubin 0.1 L Direct Bilirubin 0.00 Indirect Bilirubin 0.1 Aspartate Amino 37 Transf (AST/SGOT) Alanine 23 Aminotransferase (ALT/SG PT) Alkaline Phosphatase 166 H Troponin I < 0.012 B-Type Natriuretic 2070 H Peptide Total Protein 7.4 Albumin 3.9 Globulin 3.50 H Albumin/Globulin Ratio 1.11 Urine Color STRAW Urine Clarity CLEAR Urine pH 7.0 Urine Specific [place] 1.008 Urine Ketones TRACE A Urine Nitrite NEGATIVE Urine Bilirubin NEGATIVE Urine Urobilinogen NEGATIVE Urine Leukocyte Esterase NEGATIVE Urine Microscopic RBC 15 H Urine Microscopic WBC 1 Urine Hemoglobin 1+ H Urine Glucose NEGATIVE Urine Total Protein NEGATIVE Test 10/01/18 20:50 10/02/18 02:25 10/02/18 03:48 10/02/18 06:48 Creatine Kinase 60 52 Creatine Kinase Index 2.3 2.5 Creatinine Kinase MB 1.39 1.31 (Mass) Troponin I < 0.012 < 0.012 Bedside Glucose 77 White Blood Count 5.6 # Red Blood Count 4.10 L Hemoglobin 10.8 L Hematocrit 36.5 L Mean Corpuscular Volume 89.0 Mean Corpuscular 26.3 L Hemoglobin Mean Corpuscular 29.6 L Hemoglobin Concent Red Cell Distribution 17.3 H Width Platelet Count 339 Mean Platelet Volume 8.9 Immature Granulocytes % 0.400 Neutrophils % 65.7 Lymphocytes % 20.5 Monocytes % 9.3 Eosinophils % 2.5 Basophils % 1.6 Nucleated Red Blood 0.0 Cells % Immature Granulocytes # 0.020 Neutrophils # 3.7 Lymphocytes # 1.2 Monocytes # 0.5 Eosinophils # 0.1 Basophils # 0.1 Nucleated Red Blood 0.0 Cells # Sodium Level 141 Potassium Level 3.7 Chloride Level 92 L Carbon Dioxide Level 39 H Anion Gap 10 Blood Urea Nitrogen 17 # Creatinine 0.51 Est Glomerular Filtrat > 60 Rate mL/min Glucose Level 81 Hemoglobin A1c 5.6 Calcium Level 10.2 Total Bilirubin 0.1 L Direct Bilirubin 0.00 Indirect Bilirubin 0.1 Aspartate Amino 35 Transf (AST/SGOT) Alanine 15 Aminotransferase (ALT/SG PT) Alkaline Phosphatase 139 H Total Protein 6.8 Albumin 3.6 Globulin 3.20 Albumin/Globulin Ratio 1.12 Triglycerides Level 170 H Cholesterol Level 206 H LDL Cholesterol, 129 Calculated HDL Cholesterol 43 Cholesterol/HDL Ratio 4.7 Thyroid Stimulating 4.770 H Hormone (TSH) Test 10/02/18 09:17 10/02/18 12:20 Bedside Glucose 86 86 Subjective 24 Hr Interval Summary Free Text/Dictation poor appetite, dyspnea on exertion Exam/Review of Systems Exam Vitals Vital Signs Date Temp Pulse Resp B/P (MAP) Pulse Ox O2 O2 Flow FiO2 Time Delivery Rate 10/02/18 98.2 50 20 126/58 90 15:10 (80) 10/02/18 2.0 02:30 10/01/18 Room Air 23:12 Intake and Output 10/01/18 10/01/18 10/02/18 1515:00 23:00 07:00 IntakeIntake Total 200 ml OutputOutput Total 700 ml BalanceBalance -500 ml Constitutional: alert, oriented, well developed, obese Head: normocephalic, atraumatic Eyes: nl conjunctiva, EOMI, nl lids, PERRL ENMT: nl external ears & nose, nl lips & teeth, nl nasal mucosa & septum Neck: supple, non-tender Respiratory: clear to auscultation, normal air movement; No congested cough, No crackles/rales, No diminished breath sounds, No intercostal retraction, No labored breathing, No respirations, No tactile fremitus, No wheezing, No other Cardiovascular: regular rate and rhythm, nl pulses; No bruits, No diastolic murmur, No edema, No gallop, No irregular rhythm, No jugular venous distention (JVD), No murmurs/extra sounds, No rub, No systolic murmur, No S3, No S4, No other Gastrointestinal: soft, nl liver, spleen, non-tender; No ascites, No bowel sounds, No distended, No firm, No hepatomegaly, No mass, No rebound or guarding, No splenomegaly, No surgical scars, No tender, No other Musculoskeletal: nl extremities to inspection Extremities: normal pulses; No calf tenderness, No cyanosis, No clubbing, No edema, No pitting pedal edema, No palpable cord, No tenderness, No other 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, nl mental status, nl speech, nl strength Results Results 24hrs Laboratory Tests Test 10/01/18 16:29 10/01/18 17:45 10/01/18 18:50 10/01/18 20:40 Bedside Glucose 99 82 White Blood Count 4.2 #L Red Blood Count 4.08 #L Hemoglobin 10.8 #L Hematocrit 36.8 #L Mean Corpuscular Volume 90.2 Mean Corpuscular 26.5 L Hemoglobin Mean Corpuscular 29.3 L Hemoglobin Concent Red Cell Distribution 17.3 H Width Platelet Count 374 # Mean Platelet Volume 9.0 Immature Granulocytes % 0.200 Neutrophils % 60.0 Lymphocytes % 24.8 Monocytes % 10.3 Eosinophils % 3.3 Basophils % 1.4 Nucleated Red Blood 0.0 Cells % Immature Granulocytes # 0.010 Neutrophils # 2.5 Lymphocytes # 1.0 Monocytes # 0.4 Eosinophils # 0.1 Basophils # 0.1 Nucleated Red Blood 0.0 Cells # Prothrombin Time 12.9 Prothrombin Time Ratio 1.0 INR International 0.96 Normalized Ratio Activated 34.4 Partial Thromboplast Time Sodium Level 141 Potassium Level 4.4 Chloride Level 95 L Carbon Dioxide Level 38 H Anion Gap 8 Blood Urea Nitrogen 26 H Creatinine 0.63 Est Glomerular Filtrat > 60 Rate mL/min Glucose Level 98 Calcium Level 10.4 H Total Bilirubin 0.1 L Direct Bilirubin 0.00 Indirect Bilirubin 0.1 Aspartate Amino 37 Transf (AST/SGOT) Alanine 23 Aminotransferase (ALT/SG PT) Alkaline Phosphatase 166 H Troponin I < 0.012 B-Type Natriuretic 2070 H Peptide Total Protein 7.4 Albumin 3.9 Globulin 3.50 H Albumin/Globulin Ratio 1.11 Urine Color STRAW Urine Clarity CLEAR Urine pH 7.0 Urine Specific [place] 1.008 Urine Ketones TRACE A Urine Nitrite NEGATIVE Urine Bilirubin NEGATIVE Urine Urobilinogen NEGATIVE Urine Leukocyte Esterase NEGATIVE Urine Microscopic RBC 15 H Urine Microscopic WBC 1 Urine Hemoglobin 1+ H Urine Glucose NEGATIVE Urine Total Protein NEGATIVE Test 10/01/18 20:50 10/02/18 02:25 10/02/18 03:48 10/02/18 06:48 Creatine Kinase 60 52 Creatine Kinase Index 2.3 2.5 Creatinine Kinase MB 1.39 1.31 (Mass) Troponin I < 0.012 < 0.012 Bedside Glucose 77 White Blood Count 5.6 # Red Blood Count 4.10 L Hemoglobin 10.8 L Hematocrit 36.5 L Mean Corpuscular Volume 89.0 Mean Corpuscular 26.3 L Hemoglobin Mean Corpuscular 29.6 L Hemoglobin Concent Red Cell Distribution 17.3 H Width Platelet Count 339 Mean Platelet Volume 8.9 Immature Granulocytes % 0.400 Neutrophils % 65.7 Lymphocytes % 20.5 Monocytes % 9.3 Eosinophils % 2.5 Basophils % 1.6 Nucleated Red Blood 0.0 Cells % Immature Granulocytes # 0.020 Neutrophils # 3.7 Lymphocytes # 1.2 Monocytes # 0.5 Eosinophils # 0.1 Basophils # 0.1 Nucleated Red Blood 0.0 Cells # Sodium Level 141 Potassium Level 3.7 Chloride Level 92 L Carbon Dioxide Level 39 H Anion Gap 10 Blood Urea Nitrogen 17 # Creatinine 0.51 Est Glomerular Filtrat > 60 Rate mL/min Glucose Level 81 Hemoglobin A1c 5.6 Calcium Level 10.2 Total Bilirubin 0.1 L Direct Bilirubin 0.00 Indirect Bilirubin 0.1 Aspartate Amino 35 Transf (AST/SGOT) Alanine 15 Aminotransferase (ALT/SG PT) Alkaline Phosphatase 139 H Total Protein 6.8 Albumin 3.6 Globulin 3.20 Albumin/Globulin Ratio 1.12 Triglycerides Level 170 H Cholesterol Level 206 H LDL Cholesterol, 129 Calculated HDL Cholesterol 43 Cholesterol/HDL Ratio 4.7 Thyroid Stimulating 4.770 H Hormone (TSH) Test 10/02/18 09:17 10/02/18 12:20 Bedside Glucose 86 86 Medications Medication Current Medications IV Flush (NS 3 ml) 3 ml PER PROTOCOL IV ; Start 10/01/18 at 20:30 Ondansetron HCl (Zofran Inj) 4 mg Q6H PRN IV NAUSEA/VOMITING Last administered on 10/02/18at 09:38; Admin Dose 4 MG; Start 10/01/18 at 20:30 Nitroglycerin (Nitroglycerin (Sl Tab) 0.4 Mg) 1 tab Q5M PRN SL .CHEST PAIN; Start 10/01/18 at 20:30 Acetaminophen (Tylenol Tab) 650 mg Q6H PRN PO .PAIN 1-3 OR TEMP; Start 10/01/18 at 20:30 Docusate Sodium (Colace) 100 mg Q12H PRN PO .CONSTIPATION; Start 10/01/18 at 20:30 Bisacodyl (Dulcolax) 5 mg DAILY PRN PO .CONSTIPATION; Start 10/01/18 at 20:30 Enoxaparin Sodium (Lovenox) 40 mg DAILY SC ; Start 10/02/18 at 09:00; Status Hold Furosemide (Lasix) 40 mg BID DIURETICS IV Last administered on 10/02/18at 06:59; Admin Dose 40 MG; Start 10/02/18 at 06:00 Tramadol HCl (Ultram) 50 mg Q6H PRN PO MODERATE PAIN LEVEL 4-6 Last administered on 10/02/18at 02:46; Admin Dose 50 MG; Start 10/01/18 at 23:00 Morphine Sulfate (morphine) 2 mg Q4H PRN IV SEVERE PAIN LEVEL 7-10 Last admin istered on 10/02/18 01:56; Admin Dose 2 MG; Start 10/02/18 at 02:00 Hydralazine HCl (Apresoline) 10 mg Q4H PRN IV ELEVATED BLOOD PRESSURE Last administered on 10/02/18 02:03; Admin Dose 10 MG; Start 10/02/18 at 02:00 Acetaminophen/ Hydrocodone Bitart ([place] (10/325)) 1 tab Q4H PRN PO MODERATE PAIN LEVEL 4-6 Last administered on 10/02/18 13:09; Admin Dose 1 TAB; Start 10/02/18 at 03:30 Albuterol (Ventolin Hfa) 2 puff Q4H PRN INH SHORTNESS OF BREATH; Start 10/02/18 at 05:30 Atenolol (Tenormin) 100 mg DAILY PO Last administered on 10/02/18 08:26; Admin Dose 100 MG; Start 10/02/18 at 09:00 Cyclobenzaprine HCl (Flexeril) 10 mg Q8 PRN PO PAIN LEVEL 6-10; Start 10/02/18 at 05:30 Gabapentin (Neurontin) 100 mg TID PO Last administered on 10/02/18 13:09; Admin Dose 100 MG; Start 10/02/18 at 09:00 Levothyroxine Sodium (Synthroid) 175 mcg BEFORE BREAKFAST PO Last administered on 10/02/18 08:26; Admin Dose 175 MCG; Start 10/02/18 at 07:00 Paroxetine HCl (Paxil) 40 mg DAILY PO Last administered on 10/02/18 08:24; Admin Dose 40 MG; Start 10/02/18 at 09:00 Ranitidine HCl (Zantac) 150 mg HS PO ; Start 10/02/18 at 21:00 Atorvastatin Calcium (Lipitor) 10 mg DAILY@21 PO ; Start 10/02/18 at 21:00 FEDERICO LEAL MD Oct 02, 2018 15:32
--- NOTE | 2018-10-02 15:48 | RADRPT ---
Echocardiogram Report Patient Name: ATILIO HARRELLPatient ID: [id number] : 1955 (63y 7m)Study Date: 10/02/2018 11:18:27 AM Gender: FAccession #: [id number] Tech: AA Location: Ref.Physician: MARY GUO Height(Cm): BSA: Weight(Kg): Quality: AdequateAccount #: Procedures: Echocardiographic Report: Transthoracic echocardiogram with complete 2D, M-Mode, and doppler examination. Indications: Congestive Heart Failure. Measurements: 2D/M Mode Doppler Measurement Value Normal Range Measurement Value Normal Range LVIDd 2D 5.1 [ 3.8 - 5.2 ] cm AV Mean [place] 1.0 [ 70.0 - 90.0 ] cm/sec LVIDs 2D 3.1 [ 2.2 - 3.5 ] cm AV Mean PG 5.0 [ 2.0 - 4.0 ] mmHg LVPWd 2D 0.9 [ 0.6 - 0.9 ] cm AV Peak [place] 1.8 [ 100.0 - 170.0 ] cm/sec IVSd 2D 0.9 [ 0.6 - 0.9 ] cm AV Peak PG 13.0 [ 2.0 - 9.0 ] mmHg IVS/LVPW 2D 1.0 ratio AV VTI 32.5 cm LVOT Peak [place] 1.3 [ 70.0 - 110.0 ] cm/sec LVOT Peak PG 7.0 [ 2.0 - 6.0 ] mmHg MV E Peak [place] 1.3 [ 60.0 - 130.0 ] cm/sec MV A Peak [place] 0.9 [ 100.0 - 120.0 ] cm/sec MV E/A 1.4 [ 0.8 - 1.5 ] ratio MV Decel Time 236 [ 104 - 258 ] msec Lat E` [place] 0.1 [ 10.0 - 15.0 ] cm/sec MV E/A 1.4 [ 0.8 - 1.5 ] ratio TR Peak [place] 2.1 [ 100.0 - 280.0 ] cm/sec TR Peak PG 17.0 mmHg Findings: Left Ventricle: Normal left ventricular systolic function. Normal left ventricular cavity size. Normal left ventricular wall thickness. Ejection fraction is visually estimated at 65 %. Tissue Doppler/Mitral Doppler indices are within normal limits. Right Ventricle: Normal right ventricular size. Normal right ventricular systolic function. Left Atrium: The left atrium is normal in size. Right Atrium: The right atrium is normal in size. Mitral Valve: Normal appearance of the mitral valve. Mild mitral annular calcification. Trace mitral regurgitation. Aortic Valve: Aortic cusps appear mildly calcified. Trace aortic valve regurgitation. Tricuspid Valve: Normal appearance and function of the tricuspid valve with trace physiologic regurgitation. Normal right ventricular systolic pressure. Estimated peak PA systolic pressure 20 mmHg. Pulmonic Valve: There is trace pulmonic regurgitation. Pericardium: Normal pericardium with no significant pericardial effusion. Aorta: Normal aortic root. IVC: Normal size and normal respiratory collapse consistent with normal right atrial pressure. Conclusions: Normal left ventricular systolic function. Normal left ventricular cavity size. Normal left ventricular wall thickness. Ejection fraction is visually estimated at 65 %. Tissue Doppler/Mitral Doppler indices are within normal limits. Normal appearance of the mitral valve. Mild mitral annular calcification. Trace mitral regurgitation. Aortic cusps appear mildly calcified. Trace aortic valve regurgitation. n. Normal appearance and function of the tricuspid valve with trace physiologic regurgitation. Normal right ventricular systolic pressure. Estimated peak PA systolic pressure 20 mmHg. Electronically Signed By: Geovanny Loera 2018-10-02 15:47:33 PDT
[2018-10-02] MEDS ORDERED: GLUCAGON 1 MG INJ IM PRN (19:30)
[2018-10-02] MEDS ORDERED: GLUCOSE GEL 15 GRAM TUBE PO PRN ×2 (19:30)
[2018-10-02] MEDS ORDERED: GLUCOSE GEL 15 GRAM TUBE BUCCAL PRN (19:30)
[2018-10-02] MEDS ORDERED: DEXTROSE 50% 50 ML SYRINGE IV PRN ×2 (19:30)
[2018-10-02] MEDS: MIRTAZAPINE 15 MG TAB PO SCH (20:37)
[2018-10-02] MEDS: ATORVASTATIN 10 MG TAB PO SCH (20:38)
[2018-10-02] MEDS: RANITIDINE 150 MG TAB PO SCH (20:40)
[2018-10-02] MEDS: INSULIN ASPART [NOVOLOG] 3 ML PEN SC SCH (20:41)
[2018-10-03] VITALS (10 sets, daily range): BP systolic 101–132; BP diastolic 50–60; PULSE 47–60; RESP 18–20
[2018-10-03] MEDS: HYDROCODONE/APAP (10/325) TAB PO PRN ×4 (02:39→20:26)
[2018-10-03] MEDS: LEVOTHYROXINE 175 MCG TAB PO SCH (06:10)
[2018-10-03] MEDS: FUROSEMIDE 40 MG INJ IV SCH ×2 (06:13→17:30)
[2018-10-03] MEDS: PAROXETINE 20 MG TAB PO SCH (08:18)
[2018-10-03] MEDS: GABAPENTIN 100 MG CAP PO SCH ×3 (08:18→20:27)
[2018-10-03] MEDS: ATENOLOL 100 MG TAB PO SCH (08:19)
[2018-10-03] MEDS: INSULIN ASPART [NOVOLOG] 3 ML PEN SC SCH ×4 (08:52→20:05)
--- NOTE | 2018-10-03 15:55 | PN ---
Date/Time of Note Date/Time of Note DATE: 10/03/18 TIME: 15:44 Assessment/Plan VTE Prophylaxis Risk score (from Nsg)>0 risk: 7 SCD applied (from Nsg): Yes Pharmacological prophylaxis: LMWH Lines/Catheters IV Catheter Type (from Nrsg): Saline Lock Urinary Cath still in place: No Assessment/Plan Assessment/Plan 1. Patient is poor historian, I repeated talked to her about the reason she came to the hospital for, she states it is for her leg swelling. I talked to the son yesterday and today, who is very concerned about patient's poor intake. The son states patient has hiatal hernia and he thinks that is why she is not eating well, patient is saying she is not eating well because of poor appetite. Patient denies depression. Patient is taking antidepressant, I feel clinically it is likely depression related. I started her Remeron last night. 2. Depression, add remeron for poor appetite, increase synthroid 2. Peripheral edema, US r/o DVT 3. Sleep apnea 4. Obesity 5. Hypothyroidism, increase synthroid 6. H/o ASD repair in [facility] when she was 26 years old 7. DVT prophylaxis: lovenox Result Diagram: 10/03/18 0745 10/03/18 0745 Results 24hrs Laboratory Tests Test 10/02/18 17:36 10/02/18 20:28 10/03/18 07:45 10/03/18 08:03 Bedside Glucose 89 100 144 White Blood Count 5.5 Red Blood Count 4.14 L Hemoglobin 11.0 L Hematocrit 37.4 Mean Corpuscular Volume 90.3 Mean Corpuscular 26.6 L Hemoglobin Mean Corpuscular 29.4 L Hemoglobin Concent Red Cell Distribution 17.5 H Width Platelet Count 363 Mean Platelet Volume 9.0 Immature Granulocytes % 0.200 Neutrophils % 54.2 Lymphocytes % 29.5 Monocytes % 11.4 H Eosinophils % 3.1 Basophils % 1.6 Nucleated Red Blood 0.0 Cells % Immature Granulocytes # 0.010 Neutrophils # 3.0 Lymphocytes # 1.6 Monocytes # 0.6 Eosinophils # 0.2 Basophils # 0.1 Nucleated Red Blood 0.0 Cells # Sodium Level 140 Potassium Level 3.6 Chloride Level 93 L Carbon Dioxide Level 38 H Anion Gap 9 Blood Urea Nitrogen 24 H Creatinine 0.89 Est Glomerular Filtrat > 60 Rate mL/min Glucose Level 96 Calcium Level 9.2 Total Bilirubin 0.2 Direct Bilirubin 0.00 Indirect Bilirubin 0.2 Aspartate Amino 36 Transf (AST/SGOT) Alanine 15 Aminotransferase (ALT/SG PT) Alkaline Phosphatase 116 Total Protein 6.7 Albumin 3.5 Globulin 3.20 Albumin/Globulin Ratio 1.09 Test 10/03/18 08:46 10/03/18 11:40 Bedside Glucose 155 128 Subjective 24 Hr Interval Summary Free Text/Dictation better appetite, no shortness of breath, no cough Exam/Review of Systems Exam Vitals Vital Signs Date Temp Pulse Resp B/P (MAP) Pulse Ox O2 O2 Flow FiO2 Time Delivery Rate 10/03/18 97.6 50 20 127/54 90 15:11 (78) 10/03/18 2.0 14:11 10/03/18 Nasal 11:37 Cannula Intake and Output 10/02/18 10/02/18 10/03/18 1515:00 23:00 07:00 IntakeIntake Total 450 ml 400 ml OutputOutput Total 1200 ml BalanceBalance -750 ml 400 ml Constitutional: alert, oriented, well developed Head: normocephalic, atraumatic Eyes: nl conjunctiva, EOMI, nl lids, PERRL ENMT: nl external ears & nose, nl lips & teeth, nl nasal mucosa & septum Neck: supple, non-tender Respiratory: clear to auscultation, normal air movement; No congested cough, No crackles/rales, No diminished breath sounds, No intercostal retraction, No labored breathing, No respirations, No tactile fremitus, No wheezing, No other Cardiovascular: regular rate and rhythm, nl pulses; No bruits, No diastolic murmur, No edema, No gallop, No irregular rhythm, No jugular venous distention (JVD), No murmurs/extra sounds, No rub, No systolic murmur, No S3, No S4, No other Gastrointestinal: soft, nl liver, spleen, non-tender Musculoskeletal: nl extremities to inspection Extremities: normal pulses; No calf tenderness, No cyanosis, No clubbing, No edema, No pitting pedal edema, No palpable cord, No tenderness, No other 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, nl mental status, nl speech, nl strength Results Results 24hrs Laboratory Tests Test 10/02/18 17:36 10/02/18 20:28 10/03/18 07:45 10/03/18 08:03 Bedside Glucose 89 100 144 White Blood Count 5.5 Red Blood Count 4.14 L Hemoglobin 11.0 L Hematocrit 37.4 Mean Corpuscular Volume 90.3 Mean Corpuscular 26.6 L Hemoglobin Mean Corpuscular 29.4 L Hemoglobin Concent Red Cell Distribution 17.5 H Width Platelet Count 363 Mean Platelet Volume 9.0 Immature Granulocytes % 0.200 Neutrophils % 54.2 Lymphocytes % 29.5 Monocytes % 11.4 H Eosinophils % 3.1 Basophils % 1.6 Nucleated Red Blood 0.0 Cells % Immature Granulocytes # 0.010 Neutrophils # 3.0 Lymphocytes # 1.6 Monocytes # 0.6 Eosinophils # 0.2 Basophils # 0.1 Nucleated Red Blood 0.0 Cells # Sodium Level 140 Potassium Level 3.6 Chloride Level 93 L Carbon Dioxide Level 38 H Anion Gap 9 Blood Urea Nitrogen 24 H Creatinine 0.89 Est Glomerular Filtrat > 60 Rate mL/min Glucose Level 96 Calcium Level 9.2 Total Bilirubin 0.2 Direct Bilirubin 0.00 Indirect Bilirubin 0.2 Aspartate Amino 36 Transf (AST/SGOT) Alanine 15 Aminotransferase (ALT/SG PT) Alkaline Phosphatase 116 Total Protein 6.7 Albumin 3.5 Globulin 3.20 Albumin/Globulin Ratio 1.09 Test 10/03/18 08:46 10/03/18 11:40 Bedside Glucose 155 128 Medications Medication Current Medications IV Flush (NS 3 ml) 3 ml PER PROTOCOL IV ; Start 10/01/18 at 20:30 Ondansetron HCl (Zofran Inj) 4 mg Q6H PRN IV NAUSEA/VOMITING Last administered on 10/02/18at 09:38; Admin Dose 4 MG; Start 10/01/18 at 20:30 Nitroglycerin (Nitroglycerin (Sl Tab) 0.4 Mg) 1 tab Q5M PRN SL .CHEST PAIN; Start 10/01/18 at 20:30 Acetaminophen (Tylenol Tab) 650 mg Q6H PRN PO .PAIN 1-3 OR TEMP; Start 10/01/18 at 20:30 Docusate Sodium (Colace) 100 mg Q12H PRN PO .CONSTIPATION; Start 10/01/18 at 20:30 Bisacodyl (Dulcolax) 5 mg DAILY PRN PO .CONSTIPATION; Start 10/01/18 at 20:30 Enoxaparin Sodium (Lovenox) 40 mg DAILY SC ; Start 10/02/18 at 09:00; Status Hold Furosemide (Lasix) 40 mg BID DIURETICS IV Last administered on 10/03/18 06:13; Admin Dose 40 MG; Start 10/02/18 at 06:00 Tramadol HCl (Ultram) 50 mg Q6H PRN PO MODERATE PAIN LEVEL 4-6 Last administered on 10/02/18at 02:46; Admin Dose 50 MG; Start 10/01/18 at 23:00 Morphine Sulfate (morphine) 2 mg Q4H PRN IV SEVERE PAIN LEVEL 7-10 Last administered on 10/02/18 01:56; Admin Dose 2 MG; Start 10/02/18 at 02:00 Hydralazine HCl (Apresoline) 10 mg Q4H PRN IV ELEVATED BLOOD PRESSURE Last administered on 10/02/18 02:03; Admin Dose 10 MG; Start 10/02/18 at 02:00 Acetaminophen/ Hydrocodone Bitart ([place] (10/325)) 1 tab Q4H PRN PO MODERATE PAIN LEVEL 4-6 Last administered on 10/03/18 10:52; Admin Dose 1 TAB; Start 10/02/18 at 03:30 Albuterol (Ventolin Hfa) 2 puff Q4H PRN INH SHORTNESS OF BREATH; Start 10/02/18 at 05:30 Atenolol (Tenormin) 100 mg DAILY PO Last administered on 10/02/18 08:26; Admin Dose 100 MG; Start 10/02/18 at 09:00 Cyclobenzaprine HCl (Flexeril) 10 mg Q8 PRN PO PAIN LEVEL 6-10; Start 10/02/18 at 05:30 Gabapentin (Neurontin) 100 mg TID PO Last administered on 10/03/18 13:10; Admin Dose 100 MG; Start 10/02/18 at 09:00 Levothyroxine Sodium (Synthroid) 175 mcg BEFORE BREAKFAST PO Last administered on 10/03/18 06:10; Admin Dose 175 MCG; Start 10/02/18 at 07:00 Paroxetine HCl (Paxil) 40 mg DAILY PO Last administered on 10/03/18 08:18; Adm in Dose 40 MG; Start 10/02/18 at 09:00 Ranitidine HCl (Zantac) 150 mg HS PO Last administered on 10/02/18at 20:40; Admin Dose 150 MG; Start 10/02/18 at 21:00 Atorvastatin Calcium (Lipitor) 10 mg DAILY@21 PO Last administered on 10/02/18at 20:38; Admin Dose 10 MG; Start 10/02/18 at 21:00 Mirtazapine (Remeron) 15 mg HS PO Last administered on 10/02/18at 20:37; Admin Dose 15 MG; Start 10/02/18 at 21:00 Insulin Aspart (Novolog Insulin Pen) NOVOLOG *MILD* ALGORITHM WITH MEALS BEDTIME SC Last administered on 10/03/18at 08:52; Admin Dose 2 UNIT; Start 10/02/18 at 21:00 Miscellaneous Information 1 ea NOTE XX ; Start 10/02/18 at 19:30 Glucose (Glutose) 15 gm Q15M PRN PO DECREASED GLUCOSE; Start 10/02/18 at 19:30 Glucose (Glutose) 22.5 gm Q15M PRN PO DECREASED GLUCOSE; Start 10/02/18 at 19:30 Dextrose (D50w Syringe) 25 ml Q15M PRN IV DECREASED GLUCOSE; Start 10/02/18 at 19:30 Dextrose (D50w Syringe) 50 ml Q15M PRN IV DECREASED GLUCOSE; Start 10/02/18 at 19:30 Glucagon (Glucagen) 1 mg Q15M PRN IM DECREASED GLUCOSE; Start 10/02/18 at 19:30 Glucose (Glutose) 15 gm Q15M PRN BUCCAL DECREASED GLUCOSE; Start 10/02/18 at 19:30 FEDERICO LEAL MD Oct 03, 2018 15:54
[2018-10-03] MEDS: RANITIDINE 150 MG TAB PO SCH (20:27)
[2018-10-03] MEDS: MIRTAZAPINE 15 MG TAB PO SCH (20:27)
[2018-10-03] MEDS: ATORVASTATIN 10 MG TAB PO SCH (20:27)
[2018-10-03] MEDS: traMADol 50 MG TAB PO PRN (23:32)
[2018-10-04] VITALS (9 sets, daily range): BP systolic 107–121; BP diastolic 52–58; PULSE 48–68; RESP 18–19
[2018-10-04] MEDS: HYDROCODONE/APAP (10/325) TAB PO PRN ×4 (00:46→17:07)
[2018-10-04] MEDS: FUROSEMIDE 40 MG INJ IV SCH (06:23)
[2018-10-04] MEDS ORDERED: LEVOTHYROXINE 100 MCG TAB PO SCH (07:00)
[2018-10-04] MEDS: INSULIN ASPART [NOVOLOG] 3 ML PEN SC SCH ×3 (07:48→17:55)
[2018-10-04] MEDS: GABAPENTIN 100 MG CAP PO SCH ×2 (08:14→12:30)
[2018-10-04] MEDS: PAROXETINE 20 MG TAB PO SCH (08:14)
[2018-10-04] MEDS: ATENOLOL 100 MG TAB PO SCH (08:16)
[2018-10-04] MEDS ORDERED: SYN2 PO (13:21)
[2018-10-04] MEDS ORDERED: FURO20TA3 PO (13:21)
[2018-10-04] MEDS ORDERED: POTA10TA37 PO (13:21)
[2018-10-04] MEDS ORDERED: MIRT15TA5 PO (13:21)
--- NOTE | 2018-10-04 13:22 | DS ---
Date/Time of Note Date/Time of Note DATE: 10/04/18 TIME: 13:22 Discharge Summary Admission/Discharge Info Admit Date/Time Oct 03, 2018 at 15:56 Discharge Date/Time Discharge Diagnosis 1. Patient is poor historian, I repeated talked to her about the reason she came to the hospital for, she states it is for her leg swelling. I talked to the son yesterday and today, who is very concerned about patient's poor intake. The son states patient has hiatal hernia and he thinks that is why she is not eating well, patient is saying she is not eating well because of poor appetite. Patient denies depression. Patient is taking antidepressant, I feel clinically it is likely depression related. I started her Remeron last night. 2. Depression, add remeron for poor appetite, increase synthroid 2. Peripheral edema, US r/o DVT 3. Sleep apnea 4. Obesity 5. Hypothyroidism, increase synthroid 6. H/o ASD repair in [facility] when she was 26 years old 7. DVT prophylaxis: lovenox Patient Condition: Stable Hospital Course The patient is a 63-year-old female, presented to the ER because of multiple complaints, she complained of dizziness, substernal chest discomfort with dyspnea intermittently with bilateral leg edema for the last 2 days. She denies syncope, near syncope, neck pain, chest pain with vomiting/radiation/exertion/diaphoresis, abdominal pain, vomiting, diarrhea. She does not smoke nor drink. She used to smoke until 3 months ago, she is currently on 2 L of home oxygen. Home Meds Active Scripts Potassium Chloride* (K-Dur*) 10 Meq Tab.prt.sr, 10 MEQ PO DAILY, #30 TAB Prov:FEDERICO LEAL MD 10/04/18 Furosemide* (Furosemide*) 20 Mg Tablet, 20 MG PO DAILY, #20 TAB Prov:FEDERICO LEAL MD 10/04/18 Levothyroxine Sodium* (Synthroid*) 200 Mcg Tablet, 200 MCG PO BEFORE BREAKFAST, #30 TAB Prov:FEDERICO LEAL MD 10/04/18 Mirtazapine* (Mirtazapine*) 15 Mg Tablet, 15 MG PO HS for 30 Days, TAB Prov:FEDERICO LEAL MD 10/04/18 Metformin Hcl* (Metformin Hcl*) 1,000 Mg Tablet, 500 MG PO AC BREAKFAST, #60 TAB Prov:MANE MATA V. [employer]CH[employer]ICAL PROJECT LEAD 07/12/18 Ergocalciferol (Vitamin D2) (VITAMIN D2) 50,000 Unit Capsule, 43137 UNIT PO QMON, #8 CAP Prov:MANE MATA V. TECH[employer]ICAL PROJECT LEAD 07/12/18 Reported Medications Cyclobenzaprine Hcl* (Cyclobenzaprine Hcl*) 10 Mg Tablet, 10 MG PO Q8 PRN for PAIN LEVEL 6-10, #60 TAB 08/21/18 Paroxetine Hcl* (Paxil*) 40 Mg Tablet, 40 MG PO DAILY, TAB 08/21/18 Empagliflozin (Jardiance) 10 Mg Tablet, 10 MG PO, TAB 08/21/18 Atenolol* (Atenolol*) 100 Mg Tablet, 100 MG PO DAILY, #30 TAB 08/21/18 Insulin Glargine,Hum.rec.anlog (Basaglar Kwikpen U-100) 100 Unit/1 Ml Insuln.pen, 100 UNIT SC, EA 08/21/18 Gabapentin* (Gabapentin*) 100 Mg Capsule, 100 MG PO TID, #90 CAP 08/21/18 Albuterol Sulfate* (Ventolin HFA*) 18 Gm Hfa.aer.ad, 2 PUFF INHALATION Q4H, #1 INHALER 08/21/18 Hydrocodone/Acetaminophen ([place] 10-325 Tablet) 1 Each Tablet, 1 EACH PO Q4 PRN for PAIN, TAB 11/29/17 Simvastatin* (Zocor*) 20 Mg Tablet, 20 MG PO QHS, #30 TAB 04/03/17 Ranitidine Hcl* (Ranitidine Hcl*) 150 Mg Tablet, 150 MG PO HS, #30 TAB 12/06/16 Discontinued Reported Medications Levothyroxine Sodium* (Levoxyl*) 175 Mcg Tablet, 175 MCG PO BEFORE BREAKFAST, #30 TAB 11/29/17 Duloxetine Hcl* (Duloxetine Hcl*) 60 Mg Capsule.dr, 60 MG PO DAILY, #30 CAP 08/21/18 [Metoclopram] No Conflict Check, 10 08/21/18 [Llidocaine Patch] No Conflict Check, 5 08/21/18 Duloxetine Hcl* (Duloxetine Hcl*) 60 Mg Capsule.dr, 120 MG PO DAILY, #30 CAP 11/29/17 Primary Care Provider Pending Labs Laboratory Tests Test 10/03/18 17:32 10/03/18 19:59 10/04/18 07:48 10/04/18 11:31 Bedside 120 135 119 150 Glucose mg/dL (70-220) mg/dL (70-220) mg/dL (70-220) mg/dL (70-220) FEDERICO LEAL MD Oct 04, 2018 13:22
== END 2018-10-04 19:15 | disposition home health service (06) | DRG 293 ==
LOC: E/R 14:35 → TEL 20:05 → OBSVTOIN 10-03 15:56
PROVIDERS: ADMIT Family Medicine; ATTEND Family Medicine
DX: I11.0 Hypertensive heart disease with heart failure (principal); I50.33 Acute on chronic diastolic (congestive) heart failure; R42 Dizziness and giddiness; D64.9 Anemia, unspecified; D72.819 Decreased white blood cell count, unspecified; J44.9 Chronic obstructive pulmonary disease, unspecified; F17.210 Nicotine dependence, cigarettes, uncomplicated; G47.30 Sleep apnea, unspecified; E66.9 Obesity, unspecified; Z68.30 Body mass index [BMI] 30.0-30.9, adult; F32.9 Major depressive disorder, single episode, unspecified; E03.9 Hypothyroidism, unspecified; R07.9 Chest pain, unspecified
CPT/HCPCS: 36415; 70450; 71045; 71250; 74176; 76830; 76856; 80053; 80061; 81001; 82550; 82553; 82962; 83036; 83880; 84443; 84484; 85025; 85610; 85730; 93005; 93306; 93970; 96374; G0378; J0360; J1815; J1940; J2270; J2405